=== PATIENT | male | born 1950 | race Caucasian/White ===

== ENCOUNTER 2016-06-26 00:40 | Observation (INO) | payer MEDICARE, BC ==
[2016-06-26] MEDS ORDERED: Aspirin Low Dose CHEW TAB* 81 MG PO ONE (01:17)
[2016-06-26] MEDS ORDERED: Nitroglycerin 2% OINT* 1 GM PAK TOPICAL ONE (01:17)
[2016-06-26 01:29] LABS: Hematocrit 45 % (42-52); Hemoglobin 14.8 g/dl (14.0-18.0); Mean Corpuscular HGB Conc 33 g/dl (31-36); Mean Corpuscular Hemoglobin 28 pg (27-31); Mean Corpuscular Volume 87 fL (80-94); Mean Platelet Volume 9 um3 (7.4-10.4); Red Cell Distribution Width 15 % (10.5-15); White Blood Count 9.5 10^3/ul (3.5-10.8)
[2016-06-26 01:38] LABS: Albumin 3.7 g/dL (3.2-5.2); Calcium 8.8 mg/dL (8.6-10.3); EGFR African American 54.1 (>60); EGFR Non-African American 42.1 (>60); Globulin 2.8 g/dL (2-4); Potassium 4.3 mmol/L (3.5-5.0); Total Bilirubin 0.3 mg/dL (0.2-1.0); Total Protein 6.5 g/dL (6.4-8.9)
[2016-06-26 01:40] LABS: Troponin I 0.01 ng/mL (<0.04)
--- NOTE | 2016-06-26 02:11 | HP ---
H&P (Free Text) History and Physical: PCP: Marc Mcdermott MD Date/Time of Evaluation: 06/25/2016 023 CC: chest pain HPI: Mr Chen is a 66YO male HX DM2, COPD, PAOD, & CAD/STEMI/stent x3 who presents reporting 1 week of gradually worsening non-radiating non-exertional chest pressure associated with increasing fatigue and cough producing clear to off white sputum. Tonight he developed some SOB, but denies any palpitations, N/ V/D, D/C, light-headedness, & sweats. The chest pressure improves with ambulation and changes intensity based on position. ED evaluation reveals hypotensive pressures as low as 80s/40s & bradycardia in the 50s. Labs are baseline for the patient excepting a BNP in the 300s. ECG is NSR rate 62, no ischemia. CXR is negative. PMedHx CVA CAD/STEMI/stent x3 to same lesion (continues to smoke) diastolic HF PAOD s/p L fem-pop bypass & L carotid endarterectomy COPD DM2 HTN HLD bladder CA s/p transurethral resection & BCG urolithiasis GERD BPH R sciatica tobacco use disorder Allergies Bee Venom Allergy (Severe, Verified 06/26/16 02:22) Swelling Of Face,Lips,& Throat Cat Hair Extract Allergy (Intermediate, Verified 06/26/16 02:22) Wheezing "stuffy, wheezy, eyes itching" Lisinopril Allergy (Verified 06/26/16 02:22) Swelling Of Face,Lips,& Throat Ambulatory Orders Gabapentin CAP(*) [Neurontin 300 CAP(*)] 800 mg PO BID 11/28/13 Omeprazole CAP* [Prilosec CAP* 20 MG] 20 mg PO QAM 11/28/13 Tamsulosin CAP* [Flomax CAP*] 0.4 mg PO BEDTIME 11/28/13 Albuterol/Ipratropium NEB.TAI* [Duoneb NEB.TAI*] 1 neb INH Q6H PRN 12/05/13 Nitroglycerin [Nitrostat] 0.4 mg SL SEE INSTRUCTIONS PRN 02/14/14 Sitagliptin/Metform 50/500(NF) [Janumet 50/500 (NF)] 1 tab PO BID 04/07/15 Amiodarone TAB* 200 mg PO DAILY 06/26/16 Aspirin EC Low Dose* 81 mg PO DAILY 06/26/16 Atorvastatin* 80 mg PO DAILY 06/26/16 Carvedilol TAB* 25 mg PO BID 06/26/16 Magnesium 400 mg PO BID 06/26/16 Plavix TAB* 75 mg PO DAILY 06/26/16 Potassium Chloride ER 20 meq PO DAILY 06/26/16 Torsemide TAB* mg PO DAILY 06/26/16 PSurgHx L carotid endarterectomy L fem-pop bypass R inguinal hernia repair SocHx: 1.5 - 2PPD cigarettes w/ ~50PYHX, no alcohol or recreational drug use; lives alone; full code status FamHx: reviewed, non-contributory ROS: as above, otherwise reviewed and all were negative Constitutional: NAD, normally developed, obese white male vitals: Vital Signs Temp 36.5 C 06/26/16 00:48 Pulse 51 06/26/16 03:30 Resp 13 06/26/16 03:30 BP 99/72 06/26/16 03:30 Pulse Ox 93 06/26/16 03:30 Intake & Output 06/25/16 06/25/16 06/26/16 11:59 23:59 11:59 Weight 245 lb HEENM: atraumatic; sclera/conjunctiva: non-icteric/clear; hearing: clinically intact; oropharynx: clear, mucosa moist Neck: soft tissue: non-tender; thyroid: normal Pulmonary: diffuse B rhonchi w/ mild end-expiratory wheeze, fair aeration, no accessory muscle use CV: RR/RR, normal S1S2, no carotid bruit, no jugular venous distention, 2+ B DP/ PT, 1+ BLE edema Abdominal: soft, non-distended, non-tender, no rebound/guarding/rigidity, normoactive bowel sounds, no hepatosplenomegaly or masses, no costovertebral angle tenderness Musculoskeletal: general: grossly intact; gait: stable Integumental: normal appearance and texture, numerous comedones on back Psychiatric orientation: AA&O to PPS affect: flat mood: cooperative eye contact: fair content: reliable responses: timely insight: fair to poor Testing: Lab Results 06/26/16 06/26/16 06/26/16 Range/Units 01:11 01:11 01:11 WBC 9.5 (3.5-10.8) 10^3/ul RBC 5.20 (4.0-5.4) 10^6/ul Hgb 14.8 (14.0-18.0) g/dl Hct 45 (42-52) % MCV 87 (80-94) fL MCH 28 (27-31) pg MCHC 33 (31-36) g/dl RDW 15 (10.5-15) % Plt Count 189 (150-450) 10^3/ul MPV 9 (7.4-10.4) um3 Neut % (Auto) 69.8 (38-83) % Lymph % (Auto) 15.3 L (25-47) % [place] % (Auto) 8.6 (1-9) % Eos % (Auto) 5.1 (0-6) % Baso % (Auto) 1.2 (0-2) % Absolute Neuts (auto) 6.6 (1.5-7.7) 10^3/ul Absolute Lymphs (auto) 1.5 (1.0-4.8) 10^3/ul Absolute Monos (auto) 0.8 (0-0.8) 10^3/ul Absolute Eos (auto) 0.5 (0-0.6) 10^3/ul Absolute Basos (auto) 0.1 (0-0.2) 10^3/ul Absolute Nucleated RBC 0.01 10^3/ul Nucleated RBC % 0.1 INR (Anticoag Therapy) 0.82 L (0.89-1.11) APTT 27.1 (26.0-36.3) seconds Sodium 133 (133-145) mmol/L Potassium 4.3 (3.5-5.0) mmol/L Chloride 100 L (101-111) mmol/L Carbon Dioxide 26 (22-32) mmol/L Anion Gap 7 (2-11) mmol/L BUN 28 H (6-24) mg/dL Creatinine 1.65 H (0.67-1.17) mg/dL Est GFR ( Amer) 54.1 (>60) Est GFR (Non-Af Amer) 42.1 (>60) BUN/Creatinine Ratio 17.0 (8-20) Glucose 128 H (70-100) mg/dL Lactic Acid (0.5-2.0) mmol/L Calcium 8.8 (8.6-10.3) mg/dL Total Bilirubin 0.30 (0.2-1.0) mg/dL AST 16 (13-39) U/L ALT 14 (7-52) U/L Alkaline Phosphatase 112 H (34-104) U/L Troponin I 0.01 (<0.04) ng/mL B-Natriuretic Peptide ( - 100) pg/mL Total Protein 6.5 (6.4-8.9) g/dL Albumin 3.7 (3.2-5.2) g/dL Globulin 2.8 (2-4) g/dL Albumin/Globulin Ratio 1.3 (1-3) 06/26/16 06/26/16 Range/Units 01:11 01:11 WBC (3.5-10.8) 10^3/ul RBC (4.0-5.4) 10^6/ul Hgb (14.0-18.0) g/dl Hct (42-52) % MCV (80-94) fL MCH (27-31) pg MCHC (31-36) g/dl RDW (10.5-15) % Plt Count (150-450) 10^3/ul MPV (7.4-10.4) um3 Neut % (Auto) (38-83) % Lymph % (Auto) (25-47) % [place] % (Auto) (1-9) % Eos % (Auto) (0-6) % Baso % (Auto) (0-2) % Absolute Neuts (auto) (1.5-7.7) 10^3/ul Absolute Lymphs (auto) (1.0-4.8) 10^3/ul Absolute Monos (auto) (0-0.8) 10^3/ul Absolute Eos (auto) (0-0.6) 10^3/ul Absolute Basos (auto) (0-0.2) 10^3/ul Absolute Nucleated RBC 10^3/ul Nucleated RBC % INR (Anticoag Therapy) (0.89-1.11) APTT (26.0-36.3) seconds Sodium (133-145) mmol/L Potassium (3.5-5.0) mmol/L Chloride (101-111) mmol/L Carbon Dioxide (22-32) mmol/L Anion Gap (2-11) mmol/L BUN (6-24) mg/dL Creatinine (0.67-1.17) mg/dL Est GFR ( Amer) (>60) Est GFR (Non-Af Amer) (>60) BUN/Creatinine Ratio (8-20) Glucose (70-100) mg/dL Lactic Acid 1.2 (0.5-2.0) mmol/L Calcium (8.6-10.3) mg/dL Total Bilirubin (0.2-1.0) mg/dL AST (13-39) U/L ALT (7-52) U/L Alkaline Phosphatase (34-104) U/L Troponin I (<0.04) ng/mL B-Natriuretic Peptide 316 H ( - 100) pg/mL Total Protein (6.4-8.9) g/dL Albumin (3.2-5.2) g/dL Globulin (2-4) g/dL Albumin/Globulin Ratio (1-3) ECG, personally reviewed: NSR rate 62, no ischemia CXR, personally reviewed: nop acute process ECHO 04/2015: Conclusions: There are multiple regional wall motion abnormalities. There is moderately decreased left ventricular systolic function : the posterior, inferior and lateral coffman are akinetic, other areas appear hyperdynamic. The estimated ejection fraction is 35-40%. The right ventricular systolic function is low normal. There is moderate mitral regurgitation, posterior lateral jet. There is a small pericardial effusion with no evidence of filling compromise. Compared with prior echo of 04/07/15 (patient on IABP at that time), the EF has decreased from 45-50%, the degree of MR has increased, previously mild to moderate. Pericardial fluid newly noted. Impression: 66M presenting with constellation most consistent with COPD exacerbation and acute on chronic diastolic HF, doubt ACS DIAGNOSIS & PLAN Primary COPD exacerbation : albuterol nebs : mometasone/formoterol : tiotropium : IV methylprednisolone : guiafenesin : supplemental oxygen : incentive spirometry : supportive care acute on chronic diastolic HF : furosemide diuresis : daily weights : strict I&Os : low sodium diet Secondary CVA : continue aspirin CAD/STEMI/stent x3 : continue aspirin & clopidogrel : continue amiodarone PAOD : s/p L fem-pop bypass & L carotid endarterectomy : continue aspirin : smoking cessation strongly encouraged, low motivation DM2 : insulin carb ratio diet : basal/bolus/correctional protocol : check A1c : hold sitagliptin/metformin HTN : continue carvedilol HLD : continue atrovastatin GERD : continue omeprazole sciatica : continue gabapentin BPH : continue tamsulosin Admission Rational: inpatient for management of acute on chronic diastolic HF & r/o ACS inappropriate for outpatient setting DVTp: SCDs & heparin SQ Code Status: full HCP: Nathan mcnair
--- NOTE | 2016-06-26 02:15 | ED ---
Gokul Ingram SooYoung, scribed for Miguel Montero on 06/26/16 at 0109 . HPI Chest Pain - HPI Summary HPI Summary: A 66 y/o M presents to ED with chest pressure. Pt states he's been feeling ill for past week. Associated sx: dyspnea, high blood pressure, shakiness, "foamy" cough, edema in LLE, bloated abd. Denies nausea, diaphoresis, fever. He has three stents, the most recent was placed a year ago. Took 81mg of aspirin today. He says he is scheduled to see Dr Krishnan in the AM. Pt is a smoker. Pert PMhx: COPD. He has not been using his home 2L O2. - History of Current Complaint Chief Complaint: EDChestPainROMI Time Seen by Provider: 06/26/16 01:04 Hx Obtained From: Patient Onset/Duration: Still Present Current Severity: Moderate Pain Intensity: 7 Pain Scale Used: 0-10 Numeric Character: Pressure/Squeezing Associated Signs and Symptoms: Positive: Swelling - LLE, Cough - "foamy", Other : - pos: dyspnea, high blood pressure, shakiness, bloated abd. Negative: Fever , Diaphoresis, Nausea - Additional Pertinent History Primary Care Physician: [id number] - Allergy/Home Medications Allergies/Adverse Reactions: Allergies Allergy/AdvReac Type Severity Reaction Status Date / Time Bee Venom Allergy Severe Swelling Verified 04/07/15 10:42 Of Face,Lips,& Throat Cat Hair Extract Allergy Intermediate Wheezing Verified 04/07/15 10:42 Lisinopril Allergy Swelling Verified 06/26/16 00:49 Of Face,Lips,& Throat PMH/Surg Hx/FS Hx/Imm Hx Previously Healthy: No Endocrine/Hematology History: Reports: Hx Anticoagulant Therapy Denies: Hx Diabetes, Hx Thyroid Disease, Hx Anemia, Hx Unexplained Bleeding Cardiovascular History: Reports: Hx Angina, Hx Angioplasty, Hx Coronary Artery Disease - STENT, Hx Embolism, Hx Hypercholesterolemia, Hx Hypertension - CONTROLLED WITH MEDS, Hx Peripheral Vascular Disease, Other Cardiovascular Problems/Disorders - Fem pop Denies: Hx Aneurysm, Hx Auto Implanted Cardiovert Defib, Hx Cardiac Arrest, Hx Congestive Heart Failure, Hx Myocardial Infarction, Hx Pacemaker/ICD, Hx Valvular Heart Disease Respiratory History: Reports: Hx Chronic Obstructive Pulmonary Disease (COPD), Hx Pneumonia, Other Respiratory Problems/Disorders - possible sleep apnea, "wakes up a lot" Denies: Hx Asthma GI History: Reports: Hx Diverticulosis, Hx Gastroesophageal Reflux Disease - ON DAILY MEDS, Other GI Disorders - inguinal hernia Denies: Hx Cirrhosis, Hx Crohn's Disease, Hx Gall Bladder Disease, Hx Gastrointestinal Bleed, Hx Hiatal Hernia, Hx Irritable Bowel, Hx Jaundice, Hx Obstructive Bowel, Hx Ileostomy, Hx Pyloric Stenosis, Hx Ulcer History: Reports: Hx Benign Prostatic Hyperplasia, Hx Kidney Stones - 1 SMALL , 2005, NOT MOVED, Other Problems/Disorders Denies: Hx Renal Disease Musculoskeletal History: Reports: Hx Arthritis, Hx Back Problems, Hx Scoliosis, Other Musculoskeletal History - arthritis back Sensory History: Reports: Hx Contacts or Glasses Denies: Hx Cataracts, Hx Eye Injury, Hx Eye Prosthesis, Hx Glaucoma, Hx Legally Blind, Hx Macular Degeneration, Hx Vision Problem, Hx Deafness, Hx Hearing Aid, Hx Hearing Problem, Other Sensory Impairments Opthamlomology History: Reports: Hx Contacts or Glasses Denies: Hx Cataracts, Hx Eye Injury, Hx Eye Prosthesis, Hx Glaucoma, Hx Legally Blind, Hx Macular Degeneration, Hx Vision Problem, Other Sensory Impairments Neurological History: Reports: Hx Nerve Disease Denies: Hx Dementia, Hx Developmental Delay, Hx Headaches, Hx Migraine, Hx Seizures, Hx Spinal Cord Injury, Hx Transient Ischemic Attacks (TIA) Psychiatric History: Denies: Hx Panic Disorder, Hx Substance Abuse - Cancer History Cancer Type, Location and Year: BLADDER Hx Chemotherapy: Yes - CHEMICAL Hx Radiation Therapy: No - Surgical History Surgery Procedure, Year, and Place: 2011 & 2012 BLADDER CANCER [facility] [place]. 2006 LUMBAR SURGERY [place]. 2006 RIGHT INDEX FINGER REATTACHED [facility] [place]. , 2007 CARDIAC STENT [facility]. 2012 left carotid endarterectomy [facility] [place]. 2013 septoplasty [facility] [place]. 08/2013 LT FEMERAL BYPASS [facility] Anesthesia Reactions: No Infectious Disease History: No Infectious Disease History: Denies: Hx Clostridium Difficile, Hx Hepatitis, Hx Human Immunodeficiency Virus (HIV), Hx of Known/Suspected MRSA, Hx Shingles, Hx Tuberculosis, Hx Known/ Suspected VRE, Hx Known/Suspected VRSA, History Other Infectious Disease, Traveled Outside the in Last 30 Days - Family History Known Family History: Positive: Cardiac Disease - Social History Occupation: Employed Full-time Lives: Alone Alcohol Use: Occasionally Alcohol Amount: FEW DRINKS/ WEEK Hx Substance Use: No Substance Use Type: Reports: None Hx Tobacco Use: Yes Smoking Status (MU): Former Smoker Type: Cigarettes Amount Used/How Often: 2packs per day Have You Smoked in the Last Year: Yes Review of Systems Positive: Other - pos: shakiness. Negative: Fever, Skin Diaphoresis Positive: Chest Pain, Other - pos: high blood pressure Positive: Cough - "foamy", Other - dyspnea Positive: Other - pos: abd bloating. Negative: Nausea Positive: Edema - LLE All Other Systems Reviewed And Are Negative: Yes Physical Exam Triage Information Reviewed: Yes Vital Signs On Initial Exam: Initial Vitals Temp Pulse Resp BP Pulse Ox 97.7 F 64 18 125/59 94 06/26/16 00:48 06/26/16 00:48 06/26/16 00:48 06/26/16 00:48 06/26/16 00:48 Vital Signs Reviewed: Yes Appearance: Positive: Well-Appearing, No Pain Distress Skin: Positive: Warm, Skin Color Reflects Adequate Perfusion, Dry Head/Face: Positive: Normal Head/Face Inspection Eyes: Positive: EOMI, STEPHANIE ENT: Positive: Normal ENT inspection Neck: Positive: Supple, Nontender Respiratory/Lung Sounds: Positive: Clear to Auscultation, Breath Sounds Present Cardiovascular: Positive: RRR, Pulses are Symmetrical in both Upper and Lower Extremities, Leg Edema Left - MILD PEDAL EDEMA, L LEG, 1+ Abdomen Description: Positive: Nontender, Soft Bowel Sounds: Positive: Present Musculoskeletal: Positive: Normal, Strength/ROM Intact - 4XFROM Neurological: Positive: Normal, Sensory/Motor Intact, Alert, Oriented to Person Place, Time Diagnostics - Vital Signs Vital Signs Temp Pulse Resp BP Pulse Ox 06/26/16 00:48 97.7 F 64 18 125/59 94 - Laboratory Result Diagrams: 06/26/16 01:11 06/26/16 01:11 Lab Statement: Any lab studies that have been ordered have been reviewed, and results considered in the medical decision making process. - Radiology CXR Xray Interpretation: No Acute Changes Radiology Interpretation Completed By: ED Physician - EKG 1 EKG Rhythm: Sinus Rhythm EKG Interpretation: no acute changes Chest Pain Course/Dx - Course Course Of Treatment: MDM: A 66 y/o M presents with CP, described as pressure. History of CAD, COPD. Labs, EKG, CXR done. Will admit for further management and cardiology consult in the morning. - Diagnoses Provider Diagnoses: chest pain BRYANT - Provider Notifications Discussed Care Of Patient With: Dr. Dotson, hospitalist Time Discussed With Above Provider: 01:58 Instructed by Provider To: Admit As Inpatient Discharge - Discharge Plan Condition: Stable Disposition: ADMITTED TO [facility] Referrals: Soo Mcdermott MD [Primary Care Provider] - The documentation as recorded by the Gokul howard SooYoung accurately reflects the service I personally performed and the decisions made by Kylah castellanos Emmanuel.
[2016-06-26] MEDS ORDERED: Furosemide IV* 10 MG/ML VIAL (40 MG) IV ONE (04:47)
[2016-06-26] MEDS ORDERED: Acetaminophen TAB* 325 MG PO PRN (04:47)
[2016-06-26] MEDS ORDERED: Albuterol 2.5 MG/3 ML NEB.SOL* (0.083%) INH PRN (04:47)
[2016-06-26] MEDS ORDERED: methylPREDNISolone 125 MG* 2 ML VIAL IV ONE (04:47)
[2016-06-26] MEDS ORDERED: Melatonin (NF) 3 MG TAB PO PRN (04:47)
[2016-06-26] MEDS: Nitroglycerin 2% OINT* 1 GM PAK TOPICAL SCH ×2 (05:33→11:59)
[2016-06-26] MEDS: Nicotine PATCH 21 MG/24 HR* PATCH TRANSDERM SCH (05:33)
[2016-06-26] MEDS: Albuterol 2.5 MG/3 ML NEB.SOL* (0.083%) INH SCH ×3 (07:45→19:00)
[2016-06-26] MEDS: Tiotropium CAP.INH* CAP.INH/18 MCG (USE ORDER SET !) INH SCH (07:47)
[2016-06-26] MEDS: Mometasone/Formoter 200/5 MDI INH SCH ×2 (07:47→21:23)
--- NOTE | 2016-06-26 07:56 | RAD ---
INDICATION: Chest pain COMPARISON: Similar chest x-ray dated February 28, 2016 TECHNIQUE: Single AP portable view of the chest was obtained. FINDINGS: Image quality is compromised due to the relative inferiority of a portable chest x-ray. The heart and mediastinum exhibit normal size and contour. The lungs are grossly clear. There is no evidence of a large pleural effusion. Visualized bones are normal for the patient's age. IMPRESSION: No radiographic evidence for acute cardiopulmonary abnormality on this portable chest x-ray.
[2016-06-26] MEDS ORDERED: Spiriva Inhaler DEVICE* 1 EACH DEVICE INH ONE (09:00)
[2016-06-26] MEDS ORDERED: Atorvastatin* 80 MG TAB PO SCH ×2 (09:00→17:00)
[2016-06-26] MEDS: Insulin LISPRO* 1 UNITS UNIT SUBCUT SCH ×7 (09:22→21:28)
[2016-06-26] MEDS: Furosemide IV* 10 MG/ML VIAL (40 MG) IV SCH ×2 (09:22→13:19)
[2016-06-26] MEDS: Clopidogrel TAB* 75 MG PO SCH (09:23)
[2016-06-26] MEDS: Gabapentin CAP(*) 400 MG PO SCH ×2 (09:24→21:03)
[2016-06-26] MEDS: guaiFENesin ER TAB 600 MG PO SCH ×2 (09:24→21:03)
[2016-06-26] MEDS: Amiodarone TAB* 200 MG PO SCH (09:25)
[2016-06-26] MEDS: Carvedilol TAB* 25 MG PO SCH ×2 (09:25→21:05)
[2016-06-26] MEDS: Magnesium Oxide TAB* 400 MG PO SCH ×2 (09:25→21:04)
[2016-06-26] MEDS: Aspirin TAB* 325 MG PO SCH (09:25)
[2016-06-26] MEDS: Docusate CAP* 100 MG PO SCH ×2 (10:58→21:02)
[2016-06-26] MEDS ORDERED: Nitro Patch/OINT Remove PATCH OFF SCH (11:00)
[2016-06-26] MEDS: Pantoprazole TAB (NF) 40 MG TAB PO SCH (11:16)
--- NOTE | 2016-06-26 16:34 | PN ---
Subjective Date of Service: 06/26/16 Interval History: . pt reports he feels much better today reporting he can now lay flat, his cough is almost resolved, and his LE edema has resolved and no further CP. Reports he was having "frothy white" sputum which has resolved. No fevers or chills. Feels that he may still be a little fluid overloaded. Overall feels much better stating "I can now breath". Is not interested in quitting smoking. Objective Active Medications: Acetaminophen (Tylenol Tab*) 650 mg PO Q6H PRN PRN Reason: FEVER/PAIN Albuterol (Ventolin 2.5 Mg/3 Ml Neb.Luz Elena*) 2.5 mg INH Q2H PRN PRN Reason: SOB/WHEEZING Albuterol (Ventolin 2.5 Mg/3 Ml Neb.Luz Elena*) 2.5 mg INH [id number] AWAKE [facility] Last Admin: 06/26/16 13:45 Dose: 2.5 mg Amiodarone HCl (Cordarone Tab*) 200 mg PO DAILY [facility] Last Admin: 06/26/16 09:25 Dose: 200 mg Aspirin (Aspirin Tab*) 325 mg PO DAILY [facility] Last Admin: 06/26/16 09:25 Dose: 325 mg Atorvastatin Calcium (Lipitor*) 80 mg PO 1700 [facility] Carvedilol (Coreg Tab*) 25 mg PO BID [facility] Last Admin: 06/26/16 09:25 Dose: 25 mg Clopidogrel Bisulfate (Plavix Tab*) 75 mg PO DAILY [facility] Last Admin: 06/26/16 09:23 Dose: 75 mg Docusate Sodium (Colace Cap*) 200 mg PO BID [facility] Last Admin: 06/26/16 10:58 Dose: Not Given Furosemide (Lasix Iv*) 40 mg IV 0800,1200 [facility] Last Admin: 06/26/16 13:19 Dose: 40 mg Gabapentin (Neurontin Cap(*)) 800 mg PO BID [facility] Last Admin: 06/26/16 09:24 Dose: 800 mg Guaifenesin (Mucinex*) 1,200 mg PO BID [facility] Last Admin: 06/26/16 09:24 Dose: 1,200 mg Heparin Sodium (Porcine) (Heparin Vial(*)) 5,000 units SUBCUT Q8HR [facility] Insulin Glargine (Lantus(*)) 27 units SUBCUT 2100 [facility] Stop: 06/27/16 20:00 Insulin Human Lispro (Humalog*) 0 units SUBCUT AC [facility] PRN Reason: Protocol Last Admin: 06/26/16 13:19 Dose: 7 units Insulin Human Lispro (Humalog*) 0 units SUBCUT ACHS [facility] PRN Reason: Protocol Last Admin: 06/26/16 13:19 Dose: 2 units Magnesium Oxide (Magox 400 Tab*) 400 mg PO BID [facility] Last Admin: 06/26/16 09:25 Dose: 400 mg Melatonin (Melatonin (Nf)) 3 mg PO BEDTIME PRN; Protocol PRN Reason: Sleep Methylprednisolone Sodium Succinate (Solu-Medrol*) 40 mg IV Q8H [facility] Mometasone Furoate/Formoterol Fumar (Dulera 200/5 Mdi*) 2 puff INH BID [facility] Last Admin: 06/26/16 07:47 Dose: 2 puff Nicotine (Nicotine Patch 21 Mg/24 Hr*) 1 patch TRANSDERM Q24H [facility] Last Admin: 06/26/16 05:33 Dose: 1 patch Pantoprazole Sodium (Protonix Tab (Nf)) 40 mg PO QAM [facility] Last Admin: 06/26/16 11:16 Dose: 40 mg Pharmacy Profile Note (Nicotine Patch Removal Note*) 1 note PATCH OFF 2100 [facility] Pharmacy Profile Note (Nitro Patch/Oint Remove*) 1 note PATCH OFF Q6H [facility] Last Admin: 06/26/16 11:17 Dose: Not Given Tamsulosin HCl (Flomax Cap*) 0.4 mg PO BEDTIME [facility] Tiotropium Mobile (Spiriva Cap.Inh*) 1 cap INH DAILY [facility] Last Admin: 06/26/16 07:47 Dose: 1 cap.inh Vital Signs 06/26/16 06/26/16 06/26/16 04:35 04:38 05:00 Temperature 97.8 F Pulse Rate 65 54 62 Respiratory 16 13 19 Rate Blood Pressure 108/60 108/60 118/70 (mmHg) O2 Sat by Pulse 94 94 92 Oximetry 06/26/16 06/26/16 06/26/16 05:25 05:26 07:37 Temperature 97.3 F 97.3 F 97.6 F Pulse Rate 53 53 53 Respiratory 20 20 14 Rate Blood Pressure 120/70 120/70 119/66 (mmHg) O2 Sat by Pulse 95 95 92 Oximetry 0106/26/16 06/26/16 07:50 08:00 09:24 Temperature Pulse Rate 60 Respiratory 18 22 22 Rate Blood Pressure (mmHg) O2 Sat by Pulse 94 Oximetry 06/26/16 06/26/16 06/26/16 11:24 11:37 13:46 Temperature 98.8 F Pulse Rate 60 60 Respiratory 20 18 18 Rate Blood Pressure 119/66 (mmHg) O2 Sat by Pulse 96 99 Oximetry 06/26/16 15:23 Temperature 98.0 F Pulse Rate 72 Respiratory 16 Rate Blood Pressure 128/70 (mmHg) O2 Sat by Pulse 91 Oximetry Oxygen Devices in Use Now: None Appearance: obese male sitting up in bed in NAD. A+O x3 Eyes: No Scleral Icterus, PERRLA Ears/Nose/Mouth/Throat: NL Teeth, Lips, Gums, Mucous Membranes Moist Neck: NL Appearance and Movements; NL JVP Respiratory: Symmetrical Chest Expansion and Respiratory Effort, Clear to Auscultation Cardiovascular: NL Sounds; No Murmurs; No JVD, RRR, - - LLE larger than right ( chronic)- no calf tenderness, 1+ non-pitting edema Abdominal: NL Sounds; No Tenderness; No Distention Lymphatic: No Cervical Adenopathy Extremities: No Edema, No Clubbing, Cyanosis Skin: No Rash or Ulcers, No Nodules or Sclerosis Neurological: Alert and Oriented x 3, NL Sensation, NL Gait, NL Muscle Strength and Tone Lines/Tubes/Other Access: Clean, Dry and Intact Peripheral IV Nutrition: Taking PO's Result Diagrams: 06/26/16 01:11 06/26/16 01:11 Assess/Plan/Problems-Billing Assessment: 66 yo male with PMH of DM2, COPD, CAD s/p STEMI with stents, current tobacco abuse, s/p fem-pop bypass & L carotid endarterectomy who presented to the ED 06/26/16 with c/o chest pain, sob, orthopnea, increase LE edema adnd cough, - Patient Problems (1) Chest pain Comment: - resolved. suspect secondary to coughing - troponins negative, no noted ischemia on EKG (2) Acute on chronic diastolic CHF (congestive heart failure) Status: Acute Comment: - Much improvement today, orthopnea resolved as well as SOB, and improvement in LE edema. - Hold IV lasix for now. Down 2-3 lbs since admission. check creatinine in am - Educated pt on compliance with diet as he was eating potato chips on my arrival; encourage low salt diet. - - last echo 04/2015 (after STEMI) EF 35-40%. awaiting TTE (3) COPD exacerbation Comment: - mild exacerbation. improving. on room air, no wheezing. Decreased sputum production. Do not think the pt needs abx. - continue nebs, spiriva, - d/c solumedrol start prednsione (4) Diabetes Comment: FSBG ACHS with lispro SS with lantus (5) CAD (coronary artery disease) Comment: - hx of CAD with stents and vascular surgeries - does not appear to be acute at this time - continue ASA/Plavix, BB, amiodarone (6) Tobacco abuse Comment: - nicotine replacement - smoking cessation (7) DVT prophylaxis Comment: HSQ Status and Disposition: OBV. Most likely DC home tomorrow
[2016-06-26] MEDS ORDERED: Insulin GLARGINE(*) 1 UNITS UNIT SUBCUT SCH (21:00)
[2016-06-26] MEDS ORDERED: Nicotine Patch Removal NOTE PATCH OFF SCH (21:00)
[2016-06-26] MEDS ORDERED: Tamsulosin CAP* 0.4 MG PO SCH (21:00)
[2016-06-27] MEDS: Albuterol 2.5 MG/3 ML NEB.SOL* (0.083%) INH SCH ×2 (01:00→07:47)
[2016-06-27] MEDS: Nicotine PATCH 21 MG/24 HR* PATCH TRANSDERM SCH (05:34)
[2016-06-27] MEDS ORDERED: Heparin VIAL(*) 5000 UNITS/ML VIAL (FIVE THOUSAND) SUBCUT SCH (06:00)
[2016-06-27 06:58] LABS: Hematocrit 46 % (42-52); Mean Corpuscular HGB Conc 32 g/dl (31-36); Mean Corpuscular Hemoglobin 28 pg (27-31); Mean Corpuscular Volume 88 fL (80-94); Mean Platelet Volume 9 um3 (7.4-10.4); Red Blood Count 5.31 10^6/ul (4.0-5.4); Red Cell Distribution Width 15 % (10.5-15); White Blood Count 13.8 10^3/ul (3.5-10.8)
[2016-06-27 07:08] LABS: Calcium 9.3 mg/dL (8.6-10.3); EGFR African American 63.8 (>60); EGFR Non-African American 49.6 (>60); Potassium 4.3 mmol/L (3.5-5.0)
[2016-06-27] MEDS: Tiotropium CAP.INH* CAP.INH/18 MCG (USE ORDER SET !) INH SCH (07:47)
[2016-06-27] MEDS: Mometasone/Formoter 200/5 MDI INH SCH (07:47)
[2016-06-27] MEDS ORDERED: methylPREDNISolone SOD 40 MG* 1 ML VIAL IV SCH (09:00)
[2016-06-27] MEDS ORDERED: predniSONE TAB* 20 MG PO SCH (09:00)
[2016-06-27] MEDS: guaiFENesin ER TAB 600 MG PO SCH (09:20)
[2016-06-27] MEDS: Clopidogrel TAB* 75 MG PO SCH (09:20)
[2016-06-27] MEDS: Gabapentin CAP(*) 400 MG PO SCH (09:21)
[2016-06-27] MEDS: Magnesium Oxide TAB* 400 MG PO SCH (09:21)
[2016-06-27] MEDS: Pantoprazole TAB (NF) 40 MG TAB PO SCH (09:21)
[2016-06-27] MEDS: Aspirin TAB* 325 MG PO SCH (09:21)
[2016-06-27] MEDS: Amiodarone TAB* 200 MG PO SCH (09:21)
[2016-06-27] MEDS: Carvedilol TAB* 25 MG PO SCH (09:21)
[2016-06-27] MEDS: Insulin LISPRO* 1 UNITS UNIT SUBCUT SCH ×4 (09:22→13:23)
[2016-06-27] MEDS: Docusate CAP* 100 MG PO SCH (09:29)
--- NOTE | 2016-06-27 12:00 | DCNOTE ---
Subjective Date of Service: 06/27/16 Interval History: . patient reports he is at his baseline and "feel really good". Denies SOB or CP. Reports LE edema has "pretty much resolved". Has been ambulating around the unit multiple times with steady gait. Reports good appetite. Pt was educated to avoid high salt. Objective Active Medications: Acetaminophen (Tylenol Tab*) 650 mg PO Q6H PRN PRN Reason: FEVER/PAIN Last Admin: 06/26/16 21:28 Dose: 650 mg Albuterol (Ventolin 2.5 Mg/3 Ml Neb.Luz Elena*) 2.5 mg INH Q2H PRN PRN Reason: SOB/WHEEZING Albuterol (Ventolin 2.5 Mg/3 Ml Neb.Luz Elena*) 2.5 mg INH [id number] AWAKE [facility] Last Admin: 06/27/16 07:47 Dose: 2.5 mg Amiodarone HCl (Cordarone Tab*) 200 mg PO DAILY [facility] Last Admin: 06/27/16 09:21 Dose: 200 mg Aspirin (Aspirin Tab*) 325 mg PO DAILY [facility] Last Admin: 06/27/16 09:21 Dose: 325 mg Atorvastatin Calcium (Lipitor*) 80 mg PO 1700 [facility] Last Admin: 06/26/16 17:39 Dose: 80 mg Carvedilol (Coreg Tab*) 25 mg PO BID [facility] Last Admin: 06/27/16 09:21 Dose: 25 mg Clopidogrel Bisulfate (Plavix Tab*) 75 mg PO DAILY [facility] Last Admin: 06/27/16 09:20 Dose: 75 mg Docusate Sodium (Colace Cap*) 200 mg PO BID [facility] Last Admin: 06/27/16 09:29 Dose: Not Given Gabapentin (Neurontin Cap(*)) 800 mg PO BID [facility] Last Admin: 06/27/16 09:21 Dose: 800 mg Guaifenesin (Mucinex*) 1,200 mg PO BID [facility] Last Admin: 06/27/16 09:20 Dose: 1,200 mg Heparin Sodium (Porcine) (Heparin Vial(*)) 5,000 units SUBCUT Q8HR [facility] Last Admin: 06/27/16 05:32 Dose: 5,000 units Insulin Glargine (Lantus(*)) 27 units SUBCUT 2100 [facility] Stop: 06/27/16 20:00 Last Admin: 06/26/16 21:30 Dose: 27 units Insulin Human Lispro (Humalog*) 0 units SUBCUT AC [facility] PRN Reason: Protocol Last Admin: 06/27/16 09:22 Dose: 8 units Insulin Human Lispro (Humalog*) 0 units SUBCUT ACHS [facility] PRN Reason: Protocol Last Admin: 06/27/16 09:23 Dose: 3 units Magnesium Oxide (Magox 400 Tab*) 400 mg PO BID [facility] Last Admin: 06/27/16 09:21 Dose: 400 mg Melatonin (Melatonin (Nf)) 3 mg PO BEDTIME PRN; Protocol PRN Reason: Sleep Mometasone Furoate/Formoterol Fumar (Dulera 200/5 Mdi*) 2 puff INH BID [facility] Last Admin: 06/27/16 07:47 Dose: 2 puff Nicotine (Nicotine Patch 21 Mg/24 Hr*) 1 patch TRANSDERM Q24H [facility] Last Admin: 06/27/16 05:34 Dose: 1 patch Pantoprazole Sodium (Protonix Tab (Nf)) 40 mg PO QAM [facility] Last Admin: 06/27/16 09:21 Dose: 40 mg Pharmacy Profile Note (Nicotine Patch Removal Note*) 1 note PATCH OFF 2100 [facility] Last Admin: 06/26/16 21:39 Dose: Not Given Prednisone (Deltasone Tab*) 40 mg PO DAILY [facility] Last Admin: 06/27/16 09:22 Dose: 40 mg Tamsulosin HCl (Flomax Cap*) 0.4 mg PO BEDTIME [facility] Last Admin: 06/26/16 21:04 Dose: 0.4 mg Tiotropium [place] (Spiriva Cap.Inh*) 1 cap INH DAILY [facility] Last Admin: 06/27/16 07:47 Dose: 1 cap.inh Vital Signs 06/26/16 06/26/16 06/26/16 13:46 15:23 16:31 Temperature 98.0 F Pulse Rate 60 72 Respiratory 18 16 Rate Blood Pressure 128/70 (mmHg) O2 Sat by Pulse 99 91 93 Oximetry 06/26/16 06/26/16 06/26/16 20:07 21:03 23:03 Temperature 98.8 F Pulse Rate 75 Respiratory 16 17 18 Rate Blood Pressure 117/72 (mmHg) O2 Sat by Pulse 94 Oximetry 06/27/16 06/27/16 06/27/16 00:14 03:21 06:16 Temperature 97.4 F 97.4 F Pulse Rate 55 64 64 Respiratory 20 16 16 Rate Blood Pressure 113/48 113/47 (mmHg) O2 Sat by Pulse 90 93 93 Oximetry 06/27/16 06/27/16 07:52 09:21 Temperature Pulse Rate 57 Respiratory 18 18 Rate Blood Pressure (mmHg) O2 Sat by Pulse 95 Oximetry Oxygen Devices in Use Now: None Appearance: A+O x3 chronically ill appearing male in NAD Eyes: No Scleral Icterus, PERRLA Ears/Nose/Mouth/Throat: NL Teeth, Lips, Gums, Mucous Membranes Moist Neck: NL Appearance and Movements; NL JVP, - - good aeration throughout Respiratory: Symmetrical Chest Expansion and Respiratory Effort, Clear to Auscultation Cardiovascular: NL Sounds; No Murmurs; No JVD, RRR, - - trace B/L LE edema Abdominal: NL Sounds; No Tenderness; No Distention, - - obese Extremities: No Clubbing, Cyanosis Skin: No Rash or Ulcers, No Nodules or Sclerosis Neurological: Alert and Oriented x 3, NL Sensation, NL Gait, NL Muscle Strength and Tone Lines/Tubes/Other Access: Clean, Dry and Intact Peripheral IV Nutrition: Taking PO's Result Diagrams: 06/27/16 06:29 06/27/16 06:29 Assess/Plan/Problems-Billing Assessment: 66 yo male with PMH of DM2, COPD, CAD s/p STEMI with stents, current tobacco abuse, s/p fem-pop bypass & L carotid endarterectomy who presented to the ED 06/26/16 with c/o chest pain, sob, orthopnea, increase LE edema adnd cough, - Patient Problems (1) Chest pain Comment: - resolved. suspect secondary to coughing - troponins negative, no noted ischemia on EKG (2) Acute on chronic diastolic CHF (congestive heart failure) Status: Acute Comment: - Mild exacerbation, resolved. suspect noncompliance with diet - Down 4-5 lbs since admission. Plan to restart Torsemid on DC - he has a f/u with Savana HAIRSTON next week. - Educated pt on compliance with diet and tobacco cessation - - last echo 04/2015 (after STEMI) EF 35-40%. (3) COPD exacerbation Comment: - mild exacerbation, resolved. improving. on room air, no wheezing. Decreased sputum production. Do not think the pt needs abx. - continue home inhalers (4) Diabetes Comment: FSBG ACHS with lispro SS with lantus (5) CAD (coronary artery disease) Comment: - hx of CAD with stents and vascular surgeries - does not appear to be acute at this time - continue ASA/Plavix, BB, amiodarone (6) Tobacco abuse Comment: - nicotine replacement - smoking cessation (7) DVT prophylaxis Comment: HSQ Status and Disposition: OBV. Most likely DC home today. stable
[2016-06-27 12:51] VITALS: BP 129/80
--- NOTE | 2016-06-28 06:22 | DS ---
DISCHARGE SUMMARY: DATE OF ADMISSION: 06/26/16 DATE OF DISCHARGE: 06/27/16 ATTENDING PHYSICIAN: Dr. Chavira *(report dictated by Alton Pagan, JAZZY). PRIMARY CARE PHYSICIAN: Dr. Mcdermott. CARDIOLOGISTS: Judy Delacruz MD; and YOVANNY Shearer PRIMARY DIAGNOSES: 1. Acute on chronic congestive heart failure, mild exacerbation, suspect secondary to noncompliance of diet. 2. Mild COPD exacerbation with wheezing and increased sputum production which has resolved. 3. Chest pain, unclear etiology. Negative workup for ACS. Suspect secondary to coughing. SECONDARY DIAGNOSES: 1. Type 2 diabetes. 2. Coronary artery disease, status post STEMI with stents. 3. Current tobacco abuse. 4. Peripheral vascular disease, status post fem-pop bypass with left carotid endarterectomy. 5. Chronic kidney disease. 6. Bladder cancer. HISTORY OF PRESENT ILLNESS AND HOSPITAL COURSE: Please see history and physical by Dr. Dotson for full admission details, but in summary, this is a 66-year-old male with a complex past medical history including as stated above , who presented to the emergency department with complaints of chest pain, shortness of breath, orthopnea, increased lower extremity edema, and cough with sputum production. The patient was admitted to the hospitalist service, to telemetry. He was treated for acute on chronic systolic heart failure. He was noted to have a BNP of 300, which is the highest his BNPs have been that we have recorded. He also presented with wheezing and was started on steroids and nebulizers on admission. Antibiotics were not started as this appeared to be a mild exacerbation. The patient has done well throughout his hospitalization with no further wheezing. His coughing and sputum production have resolved. His orthopnea and lower extremity swelling have resolved. The patient has lost 4 to 5 pounds, is diuresing throughout his hospitalization. This morning, the patient has been ambulating around the unit multiple times, feels at his baseline, and denies chest pain, shortness of breath, lower extremity swelling, or orthopnea. The patient is stable for discharge home. When I evaluated the patient yesterday, the patient was eating a bag of potato chips that were brought in from the outside, and I suspect most likely his exacerbation is secondary to noncompliance. As well as the patient had smoking cessation and was strongly encouraged to quit tobacco abuse. Again, in regards to his chest pain, this seemed to have resolved with secondary to coughing. He had two troponins of 0.01 and no EKG changes. It is noted that his creatinine was 1.65, which appears to be around his baseline in the last couple of years, and the patient does report that he is followed by Urology every 3 months due to his history of bladder cancer. The patient was confused about his torsemide dosage at home. I did talk to the patient's pharmacy, who stated that the last prescription that was sent in, the patient has not filled; therefore, it was decided to send the patient home on the torsemide dosage as listed below and the patient has a followup appointment with YOVANNY Vora, baler operator next week, and he was told to discuss his torsemide dosing at his Cardiology appointment. He was encouraged to weigh himself every day, and if he gains 2 to 3 pounds, he could take an extra torsemide and call his baler operator. The patient is stable for discharge home. DISCHARGE MEDICATIONS: 1. Carvedilol 25 mg p.o. b.i.d. 2. Plavix 75 mg p.o. daily. 3. Atorvastatin 80 mg p.o. daily. 4. Amiodarone 200 mg p.o. daily. 5. Aspirin AC low dose 81 mg p.o. daily. 6. Potassium chloride 20 mEq p.o. daily. 7. Magnesium 400 mg p.o. b.i.d. 8. Janumet 50/500 one tab p.o. b.i.d. 9. DuoNeb one neb INH q. 6 hours p.r.n. 10. Flomax 0.4 mg p.o. at bedtime. 11. Omeprazole 20 mg p.o. q.a.m. 12. Nitroglycerin 0.4 mg sublingual, see instructions p.r.n. 13. Gabapentin 800 mg p.o. b.i.d. 14. Prednisone 40 mg p.o. daily x3 days. 15. Torsemide 20 mg p.o. daily. DISCHARGE PLAN: 1. The patient is stable for discharge home. 2. The patient was encouraged to do daily weights. 3. Follow up with YOVANNY Shearer, next 07/02/16, at his previously scheduled appointment. The patient was encouraged to discuss his torsemide dosing. Please note, the patient did not have a followup transesophageal echocardiogram throughout his hospitalization and it was not felt that he needed to stay to have it done as his symptoms resolved quite quickly. Please consider ordering this as an outpatient if he has not had one within the year. Follow up with Dr. Mcdermott within 1 week. TIME SPENT: Approximately 60 minutes were spent on this discharge. ALTON PAGAN NP CC: Dr. Mcdermott; Judy Delacruz MD; YOVANNY Shearer* [id number]/[facility] #: [id number] MTDD
== END 2016-06-27 13:40 | disposition home or self-care (01) ==
LOC: ED 00:40 → MEDTELE 04:32
PROVIDERS: ADMIT Hospitalist; ATTEND Internal Medicine
DX: I11.0 Hypertensive heart disease with heart failure (principal); I50.33 Acute on chronic diastolic (congestive) heart failure; J44.1 Chronic obstructive pulmonary disease with (acute) exacerbation; R07.9 Chest pain, unspecified; E11.9 Type 2 diabetes mellitus without complications; I25.10 Atherosclerotic heart disease of native coronary artery without angina pectoris; Z95.5 Presence of coronary angioplasty implant and graft; I73.9 Peripheral vascular disease, unspecified; N18.9 Chronic kidney disease, unspecified; Z85.51 Personal history of malignant neoplasm of bladder; Z79.84 Long term (current) use of oral hypoglycemic drugs; I25.2 Old myocardial infarction; N40.0 Benign prostatic hyperplasia without lower urinary tract symptoms; Z86.73 Personal history of transient ischemic attack (TIA), and cerebral infarction without residual deficits; F17.210 Nicotine dependence, cigarettes, uncomplicated; Z79.82 Long term (current) use of aspirin; Z79.02 Long term (current) use of antithrombotics/antiplatelets; Z79.899 Other long term (current) drug therapy; Z88.8 Allergy status to other drugs, medicaments and biological substances; I45.10 Unspecified right bundle-branch block; R94.31 Abnormal electrocardiogram [ECG] [EKG]; R00.1 Bradycardia, unspecified
CPT/HCPCS: 36415; 71010; 80048; 80053; 83036; 83605; 83880; 84484; 85025; 85610; 85730; 93005; 94640; 94760; 96372; 96374; 96375; 96376; 99284; 99406; A9270-GY; G0378; J1644; J1940; J2930; J7512

== ENCOUNTER 2016-08-16 21:39 | Observation (INO) | payer BC, MEDICARE ==
[2016-08-16] MEDS ORDERED: Aspirin Low Dose CHEW TAB* 81 MG PO ONE (22:16)
[2016-08-16 22:31] LABS: Hematocrit 50 % (42-52); Hemoglobin 16.2 g/dl (14.0-18.0); Mean Corpuscular HGB Conc 33 g/dl (31-36); Mean Corpuscular Hemoglobin 28 pg (27-31); Mean Corpuscular Volume 87 fL (80-94); Mean Platelet Volume 10 um3 (7.4-10.4); Red Blood Count 5.75 10^6/ul (4.0-5.4); Red Cell Distribution Width 15 % (10.5-15); White Blood Count 11.3 10^3/ul (3.5-10.8)
[2016-08-16] MEDS ORDERED: Albuterol/Ipratropium NEB.SOL* Albuterol 2.5 MG/Ipratropium 0.5 MG 3 ML INH ONE (22:37)
[2016-08-16 22:40] LABS: Albumin 3.9 g/dL (3.2-5.2); BUN/Creatinine Ratio 13.3 (8-20); Calcium 9.4 mg/dL (8.6-10.3); EGFR African American 51.2 (>60); EGFR Non-African American 39.8 (>60); Globulin 3.2 g/dL (2-4); Total Bilirubin 0.4 mg/dL (0.2-1.0); Total Protein 7.1 g/dL (6.4-8.9)
[2016-08-16 22:42] LABS: Troponin I 0.03 ng/mL (<0.04)
[2016-08-16 23:03] LABS: C Reactive Protein 8.56 mg/L (< 5.00)
--- NOTE | 2016-08-16 23:14 | RAD ---
Indication: Chest pain. Single frontal view of the chest performed at 2225 hours was reviewed. Comparison is made with previous exam dated July 18, 2016. No mediastinal shift is noted. Heart is of normal size and configuration. Lung valladares appear clear. IMPRESSION: NO ACTIVE CARDIOPULMONARY DISEASE IS NOTED.
[2016-08-17] MEDS ORDERED: Aspirin Low Dose CHEW TAB* 81 MG PO ONE (00:07)
[2016-08-17] MEDS ORDERED: Nitroglycerin TAB 0.4 MG* 0.4 MG TAB SL ONE ×2 (00:07)
--- NOTE | 2016-08-17 01:14 | ED ---
Jamal Ingram Janilya, scribed for Kurt Moralez MD on 08/16/16 at 2234 . HPI Chest Pain - HPI Summary HPI Summary: A 66 y/o male came [place] [facility] presenting w/ a gradual onset of constant lower chest heaviness in the lower sternal region for the past 3 days. However, the pain has progressively worsened. Severity rated 7/10. The pain does not radiate. The character of the pain is of burning sensation and pt also describes it like "somebody is pushing on it". Activity makes the pain worse. It is better when he's lying on his stomach. Due to this heaviness in chest, pt cannot take full deep breaths. In addition to SOB, pt reports loss of appetite and nausea. Pt states he had a similar episode 2 months ago, for which he was admitted to the hospital for 2 days. PMHx CVA, CHF, NM, COPD. No PSHx of gallbladder removal. SHx heavy daily tobacco use. - History of Current Complaint Chief Complaint: EDChestPainROMI Hx Obtained From: Patient Onset/Duration: Started Days Ago, Atraumatic, Still Present Timing: Constant Initial Severity: Moderate Current Severity: Moderate Pain Intensity: 7 Pain Scale Used: 0-10 Numeric Chest Pain Location: Lower Sternal Chest Pain Radiates: No Character: Burning, Heaviness Aggravating Factor(s): Exertion Alleviating Factor(s): Position - lying on stomach Associated Signs and Symptoms: Positive: Chest Pain, Shortness of Breath, Nausea - Additional Pertinent History Primary Care Physician: [id number] - Allergy/Home Medications Allergies/Adverse Reactions: Allergies Allergy/AdvReac Type Severity Reaction Status Date / Time Bee Venom Allergy Severe Swelling Verified 08/16/16 21:45 Of Face,Lips,& Throat Cat Hair Extract Allergy Intermediate Wheezing Verified 08/16/16 21:45 Lisinopril Allergy Swelling Verified 08/16/16 21:45 Of Face,Lips,& Throat PMH/Surg Hx/FS Hx/Imm Hx Previously Healthy: No Endocrine/Hematology History: Reports: Hx Anticoagulant Therapy, Hx Diabetes Denies: Hx Thyroid Disease, Hx Anemia, Hx Unexplained Bleeding Cardiovascular History: Reports: Hx Angina, Hx Angioplasty, Hx Coronary Artery Disease - STENT, Hx Embolism, Hx Hypercholesterolemia, Hx Hypertension - CONTROLLED WITH MEDS, Hx Peripheral Vascular Disease, Other Cardiovascular Problems/Disorders - Fem pop bypass Denies: Hx Aneurysm, Hx Auto Implanted Cardiovert Defib, Hx Cardiac Arrest, Hx Congestive Heart Failure, Hx Myocardial Infarction, Hx Pacemaker/ICD, Hx Valvular Heart Disease Respiratory History: Reports: Hx Chronic Obstructive Pulmonary Disease (COPD), Hx Pneumonia, Other Respiratory Problems/Disorders - possible sleep apnea, "wakes up a lot" Denies: Hx Asthma GI History: Reports: Hx Diverticulosis, Hx Gastroesophageal Reflux Disease - ON DAILY MEDS, Other GI Disorders - inguinal hernia Denies: Hx Cirrhosis, Hx Crohn's Disease, Hx Gall Bladder Disease, Hx Gastrointestinal Bleed, Hx Hiatal Hernia, Hx Irritable Bowel, Hx Jaundice, Hx Obstructive Bowel, Hx Ileostomy, Hx Pyloric Stenosis, Hx Ulcer History: Reports: Hx Benign Prostatic Hyperplasia, Hx Kidney Stones - 1 SMALL , 2005, NOT MOVED, Other Problems/Disorders Denies: Hx Renal Disease Musculoskeletal History: Reports: Hx Arthritis, Hx Back Problems, Hx Scoliosis, Other Musculoskeletal History - arthritis back Sensory History: Reports: Hx Contacts or Glasses Denies: Hx Cataracts, Hx Eye Injury, Hx Eye Prosthesis, Hx Glaucoma, Hx Legally Blind, Hx Macular Degeneration, Hx Vision Problem, Hx Deafness, Hx Hearing Aid, Hx Hearing Problem, Other Sensory Impairments Opthamlomology History: Reports: Hx Contacts or Glasses Denies: Hx Cataracts, Hx Eye Injury, Hx Eye Prosthesis, Hx Glaucoma, Hx Legally Blind, Hx Macular Degeneration, Hx Vision Problem, Other Sensory Impairments Neurological History: Reports: Hx Nerve Disease Denies: Hx Dementia, Hx Developmental Delay, Hx Headaches, Hx Migraine, Hx Seizures, Hx Spinal Cord Injury, Hx Transient Ischemic Attacks (TIA) Psychiatric History: Denies: Hx Panic Disorder, Hx Substance Abuse - Cancer History Cancer Type, Location and Year: BLADDER Hx Chemotherapy: Yes - CHEMICAL Hx Radiation Therapy: No - Surgical History Surgery Procedure, Year, and Place: 2011 & 2012 [place] [facility]. 2006 RIGHT INDEX FINGER REATTACHED [facility] [place] 2007 C[facility]IAC ST[place] [facility] 2012 left carotid [place]arte[place] [facility] 2013 septoplasty [facility] 08/2013 LT FEMERAL BYPASS [facility] Anesthesia Reactions: No Infectious Disease History: No Infectious Disease History: Denies: Hx Clostridium Difficile, Hx Hepatitis, Hx Human Immunodeficiency Virus (HIV), Hx of Known/Suspected MRSA, Hx Shingles, Hx Tuberculosis, Hx Known/ Suspected VRE, Hx Known/Suspected VRSA, History Other Infectious Disease, Traveled Outside the [place] in Last 30 Days - Family History Known Family History: Positive: Cardiac Disease - Social History Alcohol Use: Occasionally Alcohol Amount: FEW DRINKS/ WEEK Hx Substance Use: No Substance Use Type: Reports: None Hx Tobacco Use: Yes Smoking Status (MU): Heavy Every Day Tobacco Smoker Type: Cigarettes Amount Used/How Often: 2packs per day Have You Smoked in the Last Year: Yes Review of Systems Positive: Other - loss of appetite Positive: Chest Pain Positive: Shortness Of Breath Positive: Nausea All Other Systems Reviewed And Are Negative: Yes Physical Exam Triage Information Reviewed: Yes Vital Signs On Initial Exam: Initial Vitals Temp Pulse Resp BP Pulse Ox 96.6 F 90 18 126/57 96 08/16/16 21:40 08/16/16 21:40 08/16/16 21:40 08/16/16 21:40 08/16/16 21:40 Vital Signs Reviewed: Yes Appearance: Positive: Well-Appearing, No Pain Distress Skin: Positive: Warm, Skin Color Reflects Adequate Perfusion, Dry Head/Face: Positive: Normal Head/Face Inspection Eyes: Positive: EOMI, STEPHANIE ENT: Positive: Normal ENT inspection Neck: Positive: Supple, Nontender Respiratory/Lung Sounds: Positive: Clear to Auscultation, Breath Sounds Present , Rhonchi - bilaterally Cardiovascular: Positive: RRR Abdomen Description: Positive: Nontender, Soft Bowel Sounds: Positive: Present Musculoskeletal: Positive: Strength/ROM Intact, Edema Left - lower legs, Edema Right - lower legs Neurological: Positive: Normal, Sensory/Motor Intact, Alert, Oriented to Person Place, Time Psychiatric: Positive: Affect/Mood Appropriate Diagnostics - Vital Signs Vital Signs Temp Pulse Resp BP Pulse Ox 08/16/16 21:40 96.6 F 90 18 126/57 96 - Laboratory Lab Results: Lab Results 08/16/16 08/16/16 08/16/16 Range/Units 22:07 22:07 22:07 WBC 11.3 H (3.5-10.8) 10^3/ul RBC 5.75 H (4.0-5.4) 10^6/ul Hgb 16.2 (14.0-18.0) g/dl Hct 50 (42-52) % MCV 87 (80-94) fL MCH 28 (27-31) pg MCHC 33 (31-36) g/dl RDW 15 (10.5-15) % Plt Count 242 (150-450) 10^3/ul MPV 10 (7.4-10.4) um3 Neut % (Auto) 71.1 (38-83) % Lymph % (Auto) 15.6 L (25-47) % Lares % (Auto) 6.8 (1-9) % Eos % (Auto) 5.5 (0-6) % Baso % (Auto) 1.0 (0-2) % Absolute Neuts (auto) 8.0 H (1.5-7.7) 10^3/ul Absolute Lymphs (auto) 1.8 (1.0-4.8) 10^3/ul Absolute Monos (auto) 0.8 (0-0.8) 10^3/ul Absolute Eos (auto) 0.6 (0-0.6) 10^3/ul Absolute Basos (auto) 0.1 (0-0.2) 10^3/ul Absolute Nucleated RBC 0 10^3/ul Nucleated RBC % 0 INR (Anticoag Therapy) (0.89-1.11) D-Dimer, Quantitative (Less Than 230) ng/mL Sodium 135 (133-145) mmol/L Potassium 4.0 (3.5-5.0) mmol/L Chloride 96 L (101-111) mmol/L Carbon Dioxide 29 (22-32) mmol/L Anion Gap 10 (2-11) mmol/L BUN 23 (6-24) mg/dL Creatinine 1.73 H (0.67-1.17) mg/dL Est GFR ( Amer) 51.2 (>60) Est GFR (Non-Af Amer) 39.8 (>60) BUN/Creatinine Ratio 13.3 (8-20) Glucose 169 H (70-100) mg/dL Lactic Acid 2.2 H* (0.5-2.0) mmol/L Calcium 9.4 (8.6-10.3) mg/dL Total Bilirubin 0.40 (0.2-1.0) mg/dL AST 15 (13-39) U/L ALT 16 (7-52) U/L Alkaline Phosphatase 126 H (34-104) U/L Troponin I 0.03 (<0.04) ng/mL C-Reactive Protein 8.56 H (< 5.00) mg/L B-Natriuretic Peptide ( - 100) pg/mL Total Protein 7.1 (6.4-8.9) g/dL Albumin 3.9 (3.2-5.2) g/dL Globulin 3.2 (2-4) g/dL Albumin/Globulin Ratio 1.2 (1-3) Lipase 43 (11.0-82.0) U/L 08/16/16 08/16/16 Range/Units 22:07 22:07 WBC (3.5-10.8) 10^3/ul RBC (4.0-5.4) 10^6/ul Hgb (14.0-18.0) g/dl Hct (42-52) % MCV (80-94) fL MCH (27-31) pg MCHC (31-36) g/dl RDW (10.5-15) % Plt Count (150-450) 10^3/ul MPV (7.4-10.4) um3 Neut % (Auto) (38-83) % Lymph % (Auto) (25-47) % Lares % (Auto) (1-9) % Eos % (Auto) (0-6) % Baso % (Auto) (0-2) % Absolute Neuts (auto) (1.5-7.7) 10^3/ul Absolute Lymphs (auto) (1.0-4.8) 10^3/ul Absolute Monos (auto) (0-0.8) 10^3/ul Absolute Eos (auto) (0-0.6) 10^3/ul Absolute Basos (auto) (0-0.2) 10^3/ul Absolute Nucleated RBC 10^3/ul Nucleated RBC % INR (Anticoag Therapy) 0.84 L (0.89-1.11) D-Dimer, Quantitative 370 H (Less Than 230) ng/mL Sodium (133-145) mmol/L Potassium (3.5-5.0) mmol/L Chloride (101-111) mmol/L Carbon Dioxide (22-32) mmol/L Anion Gap (2-11) mmol/L BUN (6-24) mg/dL Creatinine (0.67-1.17) mg/dL Est GFR ( Amer) (>60) Est GFR (Non-Af Amer) (>60) BUN/Creatinine Ratio (8-20) Glucose (70-100) mg/dL Lactic Acid (0.5-2.0) mmol/L Calcium (8.6-10.3) mg/dL Total Bilirubin (0.2-1.0) mg/dL AST (13-39) U/L ALT (7-52) U/L Alkaline Phosphatase (34-104) U/L Troponin I (<0.04) ng/mL C-Reactive Protein (< 5.00) mg/L B-Natriuretic Peptide 200 H ( - 100) pg/mL Total Protein (6.4-8.9) g/dL Albumin (3.2-5.2) g/dL Globulin (2-4) g/dL Albumin/Globulin Ratio (1-3) Lipase (11.0-82.0) U/L Result Diagrams: 08/16/16 22:07 08/16/16 22:07 Lab Statement: Any lab studies that have been ordered have been reviewed, and results considered in the medical decision making process. - Radiology CXR Xray Interpretation: No Acute Changes - No active cardiopulmonary disease is noted. Radiology Interpretation Completed By: Radiologist - EKG 2151 Cardiac Rate: NL - 86 bpm EKG Rhythm: Sinus Rhythm EKG Interpretation: Left atrial enlargement, RBBB, depressed ST in V3, V4, V5 Chest Pain Course/Dx - Course Assessment/Plan: Pt is a 66 y/o male with signficant PMHx COPD, CHF, NM, and more (see PHx). In addition, pt is a heavy daily smoker. Pt c/o "chest heaviness " for the past couple days, which has been getting worse. There is also nausea and SOB. However, pt states it does not feel like NM. EKG shows left atrial enlargement, RBBB, depressed ST in V3, V4, V5. Lactic acid is of critical level at 2.2 H. CXR is normal. ADMIT HOSPITALIST STABLE. - Diagnoses Provider Diagnoses: Chest pain - Provider Notifications Discussed Care Of Patient With: Dr. Castillo (hospitalist) at 0043: agrees to admit pt. Discharge - Discharge Plan Condition: Stable Disposition: ADMITTED TO [facility] Referrals: Soo Mcdermott MD [Primary Care Provider] - The documentation as recorded by the Jamal howard Janilya accurately reflects the service I personally performed and the decisions made by me, Kurt Moralez MD.
[2016-08-17] MEDS ORDERED: Albuterol/Ipratropium NEB.SOL* Albuterol 2.5 MG/Ipratropium 0.5 MG 3 ML INH PRN (02:00)
[2016-08-17] MEDS ORDERED: Nitroglycerin TAB 0.4 MG* 0.4 MG TAB SL PRN (02:00)
[2016-08-17] MEDS ORDERED: Albuterol/Ipratropium NEB.SOL* Albuterol 2.5 MG/Ipratropium 0.5 MG 3 ML ONE (02:01)
[2016-08-17] MEDS: Albuterol/Ipratropium NEB.SOL* Albuterol 2.5 MG/Ipratropium 0.5 MG 3 ML INH PRN ×4 (02:05→20:50)
[2016-08-17] MEDS ORDERED: Heparin VIAL(*) 5000 UNITS/ML VIAL (FIVE THOUSAND) IV SCH (03:00)
[2016-08-17 03:55] LABS: Hematocrit 49 % (42-52); Hemoglobin 16.1 g/dl (14.0-18.0); Mean Corpuscular HGB Conc 33 g/dl (31-36); Mean Corpuscular Hemoglobin 28 pg (27-31); Mean Corpuscular Volume 86 fL (80-94); Mean Platelet Volume 9 um3 (7.4-10.4); Red Cell Distribution Width 15 % (10.5-15)
[2016-08-17 04:07] LABS: Troponin I 0.02 ng/mL (<0.04)
[2016-08-17] MEDS: Magnesium Oxide TAB* 400 MG PO SCH ×2 (08:58→20:27)
[2016-08-17] MEDS: Gabapentin CAP(*) 400 MG PO SCH ×2 (08:59→20:27)
[2016-08-17] MEDS: Torsemide TAB* 20 MG PO SCH (08:59)
[2016-08-17] MEDS: Atorvastatin* 80 MG TAB PO SCH (08:59)
[2016-08-17] MEDS: Amiodarone TAB* 200 MG PO SCH (08:59)
[2016-08-17] MEDS: Carvedilol TAB* 25 MG PO SCH ×2 (08:59→20:27)
[2016-08-17] MEDS: Pantoprazole TAB (NF) 40 MG TAB PO SCH (08:59)
[2016-08-17] MEDS: Clopidogrel TAB* 75 MG PO SCH (08:59)
[2016-08-17] MEDS: Potassium Chlor TAB* 20 MEQ TAB.ER PO SCH (08:59)
[2016-08-17] MEDS: Aspirin EC Low Dose* 81 MG TAB.EC PO SCH (08:59)
[2016-08-17] MEDS: Furosemide IV* 10 MG/ML 10 ML VIAL (100 MG) IV SCH ×2 (09:00→18:10)
--- NOTE | 2016-08-17 10:03 | HP ---
HISTORY AND PHYSICAL: DATE OF ADMISSION: 08/17/16 CHIEF COMPLAINT: Shortness of breath. HISTORY OF PRESENT ILLNESS: The patient is a 66-year-old gentleman who presented to [facility] saying he has had worsening shortness of breath for several days now. He says he has feeling of a fluid in his belly and his lungs, he feels. It started approximately last Thursday. He was told to double up on his torsemide by Savana [facility] of [facility] but it had little effect. He denied an increased salt in his diet. Denies any weight gain either. He has no wheezing. In fact he just received the DuoNeb treatment and says it was of little benefit. He was using his nebulizer at home too hoping it would help but it did not. He feels as a burning, pressure in his chest. He notes he just had echocardiogram done at his yeast maker, Dr. Delacruz's office on June 11. PAST MEDICAL HISTORY: Significant for: 1. CVA. 2. Coronary artery disease. 3. N-STEMI with stent x3 the same lesion. 4. Diastolic heart failure. 5. Peripheral vascular disease, status post fem-pop bypass 4 years ago. 6. Carotid endarterectomy. 7. COPD. 8. Type 2 diabetes. 9. Hypertension. 10. Hyperlipidemia. 11. Bladder cancer, status post transurethral resection and BCG. 12. Urolithiasis. 13. GERD. 14. BPH. 15. Sciatica. 16. Tobacco use disorder. PAST SURGICAL HISTORY: Significant for: 1. Left carotid endarterectomy. 2. Fem-pop bypass. 3. Right inguinal hernia repair. CURRENT MEDICATIONS: 1. Omeprazole 20 mg in the morning. 2. Nitroglycerin 0.4 mg sublingual p.r.n. for chest pain. 3. Magnesium 400 mg twice daily. 4. Gabapentin 800 mg twice daily. 5. Carvedilol 25 mg twice daily. 6. Atorvastatin 80 mg daily. 7. Aspirin 81 mg daily. 8. Amiodarone 200 mg daily. 9. DuoNeb 1 nebulizer q.6 hours as needed. 10. Janumet 50/500 1 tablet twice daily. 11. Potassium chloride 20 mEq daily. 12. Plavix 75 mg daily. 13. Torsemide 20 mg daily. 14. Flomax 0.4 mg at bedtime. ALLERGIES: He has an allergy/adverse reaction to BEE VENOM, CAT HAIR, LISINOPRIL. FAMILY HISTORY: Reviewed and noncontributory. SOCIAL HISTORY: Smokes 1.5 to 2 packs per day of no tobacco. No alcohol or recreational drug use. He lives alone. He does not know who is his healthcare proxy would be. REVIEW OF SYSTEMS: A 14-point review of systems is completed with the patient. All pertinent positives and negatives are in the History of Present Illness, otherwise it is negative. PHYSICAL EXAMINATION GENERAL: A pleasant gentleman sitting up in bed, in no acute distress. VITAL SIGNS: Temperature 98.1 degrees, heart rate 76 beats per minute, respiratory rate 18 breaths per minute, pulse ox 96%, blood pressure 134/78. HEENT: Normocephalic and atraumatic. Pupils are equal, round and reactive to light. Moist mucous membranes. NECK: Supple. No JVD, bruits, palpable thyroid or lymphadenopathy. CHEST: Diminished breath sounds bilaterally. CARDIOVASCULAR: S1, S2 appreciated. Regular rate and rhythm. ABDOMEN: Positive bowel sounds in all 4 quadrants. Soft, nontender, and nondistended. EXTREMITIES: No cyanosis, clubbing, or edema. +2 peripheral pulses bilaterally. NEUROLOGIC: Alert and oriented x3. Moves all extremities. SKIN: No rashes or abnormalities. LABORATORY DATA: White count 12.0, hemoglobin 16.1, hematocrit 49, platelets 234. Sodium is 135, potassium 4.0, chloride 96, CO2 29, BUN 23, creatinine 1.73 , glucose 169, lactic acid is 2.2, BNP is 200. INR is 0.84. D-dimer is 270. Chest x-ray was interpreted by Radiology as no active cardiopulmonary disease as noted. EKG shows normal sinus rhythm at 86 beats per minute, normal axis. No acute ST- T wave changes. ASSESSMENT AND PLAN: 1. Shortness of breath. I do not think the patient is having an [place]. His troponin is 0.03, but otherwise appears symptoms do not really correlated to that. It could be CHF and again it is again actually looks clear, his BNP is not that high. It also did not respond to doubling the torsemide at home. However, I will give him 60 mg IV q.12 hours of Lasix and continue the torsemide as instructed. We will monitor strict I's and O's and daily weights. May need to get Cardiology involved. He has an elevated D-dimer and although I do not think he has had a PE, we will get a V/Q scan any way in light of his renal function. His COPD may be acting up a little bit, but he is not actively wheezing, we will continue DuoNeb and prednisone taper. 2. Diabetes mellitus. Hold oral hypoglycemics and place him on insulin sliding scale. 3. BPH. Stable. Continue Flomax. 4. FEN. Consistent carb diet. 5. DVT prophylaxis. Heparin subcu. 6. The patient is a full code. TIME SPENT: Over 75 minutes was spent on this H and P; more than 40 minutes which was spent direct [id number] contact with the patient in evaluation, physical exam, counseling, and coordination of care. CC: Dr. Mcdermott* [id number]/CPS #: [id number]
[2016-08-17] MEDS: Acetaminophen TAB* 325 MG PO PRN ×2 (10:56→15:03)
--- NOTE | 2016-08-17 12:48 | PN ---
Subjective Date of Service: 08/17/16 Interval History: Patient seen and examined at bedside. He reports still having a "full feeling in his abdomen" that radiates up into his sternum and causes a burning sensation. He does feel SOB at times. He also reports a history of chronic LLE swelling from "a valve that doesn't close right." He states, "It doesn't feel like I'm having a heart attack." He denies nausea/vomiting, fever/chills. Mr. Chen does report that he has a large hernia in his abdomen but denies pain at site of hernia. He recently saw YOVANNY Vora, for his edema and was told to double up on his torsemide with little to no effect. Telemetry: SR 70s Family History: Unchanged from Admission Social History: Unchanged from Admission Past Medical History: Unchanged from Admission Objective Active Medications: Acetaminophen (Tylenol Tab*) 650 mg PO Q4H PRN PRN Reason: FEVER/PAIN Last Admin: 08/17/16 10:56 Dose: 650 mg Albuterol/Ipratropium (Duoneb (Albuterol 2.5 Mg/Ipratropium 0.5 Mg)) 1 neb INH Q2H PRN PRN Reason: SOB/WHEEZING Last Admin: 08/17/16 09:17 Dose: 1 neb Amiodarone HCl (Cordarone Tab*) 200 mg PO DAILY [facility] Last Admin: 08/17/16 08:59 Dose: 200 mg Aspirin (Aspirin Ec Low Dose*) 81 mg PO DAILY [facility] Last Admin: 08/17/16 08:59 Dose: 81 mg Atorvastatin Calcium (Lipitor*) 80 mg PO DAILY [facility] Last Admin: 08/17/16 08:59 Dose: 80 mg Carvedilol (Coreg Tab*) 25 mg PO BID [facility] Last Admin: 08/17/16 08:59 Dose: 25 mg Clopidogrel Bisulfate (Plavix Tab*) 75 mg PO DAILY [facility] Last Admin: 08/17/16 08:59 Dose: 75 mg Furosemide (Lasix Iv*) 60 mg IV 0800,1700 [facility] Last Admin: 08/17/16 09:00 Dose: 60 mg Gabapentin (Neurontin Cap(*)) 800 mg PO BID [facility] Last Admin: 08/17/16 08:59 Dose: 800 mg Heparin Sodium (Porcine) (Heparin Vial(*)) 0 units IV .PER PROTOCOL ALEXX PRN Reason: Protocol Heparin Sodium/Dextrose (Heparin Drip 25,000 Units(*)) 25,000 units in 500 mls @ 0 mls/hr IV .NO INITIAL BOLUS ALEXX; As Directed PRN Reason: Protocol Magnesium Oxide (Magox 400 Tab*) 400 mg PO BID [facility] Last Admin: 08/17/16 08:58 Dose: 400 mg Nitroglycerin (Nitroglycerin Tab 0.4 Mg*) 0.4 mg SL Q5M PRN PRN Reason: PAIN - CHEST Pantoprazole Sodium (Protonix Tab (Nf)) 40 mg PO QAM [facility] Last Admin: 08/17/16 08:59 Dose: 40 mg Potassium Chloride (Klor Con Er Tab*) 20 meq PO DAILY [facility] Last Admin: 08/17/16 08:59 Dose: 20 meq Spironolactone (Aldactone Tab*) 25 mg PO DAILY [facility] Tamsulosin HCl (Flomax Cap*) 0.4 mg PO BEDTIME [facility] Torsemide (Demadex*) 20 mg PO DAILY [facility] Last Admin: 08/17/16 08:59 Dose: 20 mg Tramadol HCl (Ultram*) 50 mg PO Q6H PRN PRN Reason: PAIN - BREAKTHROUGH Vital Signs 08/17/16 08/17/16 08/17/16 02:11 02:30 03:12 Temperature 98.1 F Pulse Rate 75 73 78 Respiratory 22 18 Rate Blood Pressure 119/78 134/78 (mmHg) O2 Sat by Pulse 96 92 95 Oximetry 08/17/16 08/17/16 08/17/16 03:19 07:17 08:00 Temperature 98.1 F 97.3 F Pulse Rate 76 68 77 Respiratory 18 16 20 Rate Blood Pressure 134/78 126/71 (mmHg) O2 Sat by Pulse 96 90 96 Oximetry 08/17/16 08/17/16 08/17/16 08:59 10:57 11:05 Temperature 97.7 F Pulse Rate 71 Respiratory 20 16 20 Rate Blood Pressure 103/73 (mmHg) O2 Sat by Pulse 95 Oximetry Appearance: Male patient, lying in bed, in NAD Eyes: PERRLA Ears/Nose/Mouth/Throat: Clear Oropharnyx, Mucous Membranes Moist Neck: NL Appearance and Movements; NL JVP Respiratory: Symmetrical Chest Expansion and Respiratory Effort, - - diminished Cardiovascular: NL Sounds; No Murmurs; No JVD, RRR Abdominal: - - protuberant, with large hernia to mid abdomen that is reproducible, BS x 4, no tenderness Extremities: - - LLE edema Skin: No Rash or Ulcers Neurological: Alert and Oriented x 3 Lines/Tubes/Other Access: Clean, Dry and Intact Peripheral IV Nutrition: Taking PO's Result Diagrams: 08/17/16 03:38 08/17/16 03:38 Additional Lab and Data: Lab Results 08/16/16 08/16/16 08/16/16 Range/Units 22:07 22:07 22:07 WBC 11.3 H (3.5-10.8) 10^3/ul RBC 5.75 H (4.0-5.4) 10^6/ul Hgb 16.2 (14.0-18.0) g/dl Hct 50 (42-52) % MCV 87 (80-94) fL MCH 28 (27-31) pg MCHC 33 (31-36) g/dl RDW 15 (10.5-15) % Plt Count 242 (150-450) 10^3/ul MPV 10 (7.4-10.4) um3 Neut % (Auto) 71.1 (38-83) % Lymph % (Auto) 15.6 L (25-47) % [place] % (Auto) 6.8 (1-9) % Eos % (Auto) 5.5 (0-6) % Baso % (Auto) 1.0 (0-2) % Absolute Neuts (auto) 8.0 H (1.5-7.7) 10^3/ul Absolute Lymphs (auto) 1.8 (1.0-4.8) 10^3/ul Absolute Monos (auto) 0.8 (0-0.8) 10^3/ul Absolute Eos (auto) 0.6 (0-0.6) 10^3/ul Absolute Basos (auto) 0.1 (0-0.2) 10^3/ul Absolute Nucleated RBC 0 10^3/ul Nucleated RBC % 0 INR (Anticoag Therapy) (0.89-1.11) D-Dimer, Quantitative (Less Than 230) ng/mL Sodium 135 (133-145) mmol/L Potassium 4.0 (3.5-5.0) mmol/L Chloride 96 L (101-111) mmol/L Carbon Dioxide 29 (22-32) mmol/L Anion Gap 10 (2-11) mmol/L BUN 23 (6-24) mg/dL Creatinine 1.73 H (0.67-1.17) mg/dL Est GFR ( Amer) 51.2 (>60) Est GFR (Non-Af Amer) 39.8 (>60) BUN/Creatinine Ratio 13.3 (8-20) Glucose 169 H (70-100) mg/dL Lactic Acid 2.2 H* (0.5-2.0) mmol/L Calcium 9.4 (8.6-10.3) mg/dL Total Bilirubin 0.40 (0.2-1.0) mg/dL AST 15 (13-39) U/L ALT 16 (7-52) U/L Alkaline Phosphatase 126 H (34-104) U/L Troponin I 0.03 (<0.04) ng/mL C-Reactive Protein 8.56 H (< 5.00) mg/L B-Natriuretic Peptide ( - 100) pg/mL Total Protein 7.1 (6.4-8.9) g/dL Albumin 3.9 (3.2-5.2) g/dL Globulin 3.2 (2-4) g/dL Albumin/Globulin Ratio 1.2 (1-3) Lipase 43 (11.0-82.0) U/L 08/16/16 08/16/16 Range/Units 22:07 22:07 WBC (3.5-10.8) 10^3/ul RBC (4.0-5.4) 10^6/ul Hgb (14.0-18.0) g/dl Hct (42-52) % MCV (80-94) fL MCH (27-31) pg MCHC (31-36) g/dl RDW (10.5-15) % Plt Count (150-450) 10^3/ul MPV (7.4-10.4) um3 Neut % (Auto) (38-83) % Lymph % (Auto) (25-47) % [place] % (Auto) (1-9) % Eos % (Auto) (0-6) % Baso % (Auto) (0-2) % Absolute Neuts (auto) (1.5-7.7) 10^3/ul Absolute Lymphs (auto) (1.0-4.8) 10^3/ul Absolute Monos (auto) (0-0.8) 10^3/ul Absolute Eos (auto) (0-0.6) 10^3/ul Absolute Basos (auto) (0-0.2) 10^3/ul Absolute Nucleated RBC 10^3/ul Nucleated RBC % INR (Anticoag Therapy) 0.84 L (0.89-1.11) D-Dimer, Quantitative 370 H (Less Than 230) ng/mL Sodium (133-145) mmol/L Potassium (3.5-5.0) mmol/L Chloride (101-111) mmol/L Carbon Dioxide (22-32) mmol/L Anion Gap (2-11) mmol/L BUN (6-24) mg/dL Creatinine (0.67-1.17) mg/dL Est GFR ( Amer) (>60) Est GFR (Non-Af Amer) (>60) BUN/Creatinine Ratio (8-20) Glucose (70-100) mg/dL Lactic Acid (0.5-2.0) mmol/L Calcium (8.6-10.3) mg/dL Total Bilirubin (0.2-1.0) mg/dL AST (13-39) U/L ALT (7-52) U/L Alkaline Phosphatase (34-104) U/L Troponin I (<0.04) ng/mL C-Reactive Protein (< 5.00) mg/L B-Natriuretic Peptide 200 H ( - 100) pg/mL Total Protein (6.4-8.9) g/dL Albumin (3.2-5.2) g/dL Globulin (2-4) g/dL Albumin/Globulin Ratio (1-3) Lipase (11.0-82.0) U/L Assess/Plan/Problems-Billing Assessment: Mr. Chen is a 66 yo patient with a PMH of CVA, CAD w/NSTEMI, diastolic HF, PVD , COPD, DM, HTN, HLD, GERD, BPH, and bladder cancer who presented to the ED with SOB and chest discomfort. - Patient Problems (1) Chest pain Code(s): R07.9 - CHEST PAIN, UNSPECIFIED Comment: Atypical description with c/o burning and radiating pain. Troponins negative, no noted ischemia on EKG Patient still c/o substernal chest pain; given risk factors, will check stress test Echocardiogram ordered and pending. VQ scan unavailable on weekend, obtain tomorrow. (2) Acute on chronic diastolic CHF (congestive heart failure) Code(s): I50.33 - ACUTE ON CHRONIC DIASTOLIC (CONGESTIVE) HEART FAILURE Comment: May be in mild exacerbation, but no increased oxygen needs. Patient does report abdominal fullness and LE edema. Continue IV furosemide and spironolactone. Continue to monitor daily weights and I/O. (3) CAD (coronary artery disease) Status: Chronic Code(s): I25.10 - ATHSCL HEART DISEASE OF [place] CORONARY ARTERY W/O ANG PCTRS Comment: Hx of CAD with stents and vascular surgeries - does not appear to be acute at this time Continue ASA/clopidogrel, BB, amiodarone (4) COPD (chronic obstructive pulmonary disease) Code(s): J44.9 - CHRONIC OBSTRUCTIVE PULMONARY DISEASE, UNSPECIFIED Comment: Appears stable. Continue prn nebulizers. (5) Diabetes Code(s): E11.9 - TYPE 2 DIABETES MELLITUS WITHOUT COMPLICATIONS Comment: FSBG ACHS with Lispro SS (6) GERD (gastroesophageal reflux disease) Code(s): K21.9 - GASTRO-ESOPHAGEAL REFLUX DISEASE WITHOUT ESOPHAGITIS Comment : Continue pantoprazole. (7) BPH (benign prostatic hyperplasia) Code(s): N40.0 - BENIGN PROSTATIC HYPERPLASIA WITHOUT LOWER URINRY TRACT SYMP Comment: Continue tamsulosin. (8) Tobacco abuse Code(s): Z72.0 - TOBACCO USE Comment: Nicotine replacement Smoking cessation education. (9) DVT prophylaxis Status: Acute Code(s): MZR4409 - Comment: Heparin gtt Status and Disposition: OBV admit. D/c to home when medically stable.
[2016-08-17] MEDS: traMADol TAB* 50 MG PO PRN ×2 (13:04→20:00)
[2016-08-17] MEDS: Spironolactone TAB* 25 MG PO SCH (13:04)
[2016-08-17] MEDS: Nicotine PATCH 21 MG/24 HR* PATCH TRANSDERM SCH (14:57)
[2016-08-17] MEDS ORDERED: Dextrose 50% Syringe 50 ML* 25 GM/50 ML SYRINGE IV PUSH PRN (17:07)
[2016-08-17] MEDS: Insulin LISPRO* 1 UNITS UNIT SUBCUT SCH (18:11)
[2016-08-17] MEDS: Heparin DRIP 25,000 UNITS(*) 25,000 UNITS/500 ML BAG IV SCH (20:27)
[2016-08-17] MEDS: Tamsulosin CAP* 0.4 MG PO SCH (20:27)
[2016-08-18] MEDS: Melatonin (NF) 3 MG TAB PO PRN ×2 (00:16→21:21)
[2016-08-18] MEDS: traMADol TAB* 50 MG PO PRN ×2 (05:04→21:19)
[2016-08-18] MEDS: Albuterol/Ipratropium NEB.SOL* Albuterol 2.5 MG/Ipratropium 0.5 MG 3 ML INH PRN ×2 (05:19→12:00)
[2016-08-18 05:49] LABS: Hematocrit 46 % (42-52); Hemoglobin 15.1 g/dl (14.0-18.0); Mean Corpuscular HGB Conc 33 g/dl (31-36); Mean Corpuscular Hemoglobin 28 pg (27-31); Mean Corpuscular Volume 87 fL (80-94); Mean Platelet Volume 9 um3 (7.4-10.4); Red Cell Distribution Width 16 % (10.5-15)
[2016-08-18 06:06] LABS: BUN/Creatinine Ratio 18.5 (8-20); Calcium 9.3 mg/dL (8.6-10.3); EGFR African American 47.7 (>60); EGFR Non-African American 37.1 (>60)
[2016-08-18] MEDS: Carvedilol TAB* 25 MG PO SCH ×2 (07:15→21:20)
[2016-08-18] MEDS: Insulin LISPRO* 1 UNITS UNIT SUBCUT SCH ×3 (08:56→17:39)
[2016-08-18] MEDS: Gabapentin CAP(*) 400 MG PO SCH ×2 (09:31→21:19)
[2016-08-18] MEDS: Torsemide TAB* 20 MG PO SCH (09:31)
[2016-08-18] MEDS: Furosemide IV* 10 MG/ML 10 ML VIAL (100 MG) IV SCH ×2 (09:31→17:40)
[2016-08-18] MEDS: Potassium Chlor TAB* 20 MEQ TAB.ER PO SCH (09:31)
[2016-08-18] MEDS: Atorvastatin* 80 MG TAB PO SCH (09:31)
[2016-08-18] MEDS: Magnesium Oxide TAB* 400 MG PO SCH ×2 (09:31→21:20)
[2016-08-18] MEDS: Aspirin EC Low Dose* 81 MG TAB.EC PO SCH (09:31)
[2016-08-18] MEDS: Pantoprazole TAB (NF) 40 MG TAB PO SCH (09:31)
[2016-08-18] MEDS: Clopidogrel TAB* 75 MG PO SCH (09:31)
[2016-08-18] MEDS: Spironolactone TAB* 25 MG PO SCH (09:31)
[2016-08-18] MEDS: Nicotine PATCH 21 MG/24 HR* PATCH TRANSDERM SCH (09:32)
[2016-08-18] MEDS ORDERED: Artificial Tears* 15 ML BTL BOTH EYES PRN (09:43)
--- NOTE | 2016-08-18 09:49 | ECHO ---
Patient: AHSAN MOORE [facility] Rec#: [id number] : 1950 Date: 08/18/2016 Age: 66y Height: 177.8 cm / 70.0 in Weight: 106.14 kg / 233.9 lbs Sex: M BSA: 2.23 Room#: 432 Admit Date#: 08/17/2016 Type: Inpatient Referring: Julio Castillo MD Reading: Berto Patiño MD [employer] Worker: Jojo Hooks RDCS CC: Judy Delacruz MD CC: Soo Mcdermott MD Transthoracic Echocardiogram Indication: CP/SOB BP: 115/68 HR: 55 Rhythm: Bradycardia Findings History: CVA,CHF,AR,COPD,active smoker,prior PCI,HLD,HTN with rx,PVD,GERD. Technical Comments: The study is technically limited due to the patient's history of COPD. The study is technically limited due to the patient's smoking history. Left Ventricle: The left ventricular chamber size is normal. Mild concentric left ventricular hypertrophy is observed. There is global hypokinesis of the left ventricle with minor regional variation. The estimated ejection fraction is 40-45%. Abnormal left ventricular diastolic function is observed. The basal inferior, mid inferior, and apical inferior wall segments are hypokinetic (score 2). Overall wallmotion score index is 2.00 Left Atrium: The left atrium is mild to moderately dilated. Right Ventricle: The right ventricular cavity size is normal. The right ventricular global systolic function is normal. Right Atrium: The right atrial cavity size is normal. Aortic Valve: The aortic valve structure is normal. There is no evidence of aortic regurgitation. There is no evidence of aortic stenosis. Mitral Valve: The mitral valve leaflets are mildly thickened. There is mild mitral regurgitation. There is no evidence of mitral stenosis. Tricuspid Valve: The tricuspid valve leaflets are normal. There is trace tricuspid regurgitation. Unable to estimate the right ventricular systolic pressure. There is evidence that pulmonary hypertension may be underestimated. Pulmonic Valve: The pulmonic valve appears normal. Pericardium: The pericardium appears normal. Aorta: There is no dilatation of the ascending aorta. There is no dilatation of the aortic arch. There is mild dilatation of the aortic root. Pulmonary Artery: The main pulmonary artery appears normal. Venous: The inferior vena cava is dilated. There is a greater than 50% respiratory change in the inferior vena cava dimension. Conclusions Mild concentric left ventricular hypertrophy is observed. There is global hypokinesis of the left ventricle with minor regional variation. The estimated ejection fraction is 40-45%. The basal inferior, mid inferior, and apical inferior wall segments are hypokinetic (score 2). The right ventricular global systolic function is normal. There is no evidence of aortic regurgitation. There is mild mitral regurgitation. There is trace tricuspid regurgitation. Unable to estimate the right ventricular systolic pressure. The pericardium appears normal. Compared to study of 06/11/16, the LV function is slightly lower. The degree of Mitral regurg is less (previous study had moderate MR) Measurements Name Value Normal Range RVIDd (AP) 2D 3.2 cm (0.9 - 2.6) RVDdMajor (2D) 3.3 cm (2.2 - 4.4) RAd ISD 4CH 5.5 cm (3.4 - 4.9) RA (A4C)W 3.1 cm (2.9 - 4.6) IVSd (2D) 1.2 cm (0.6 - 1) LVPWd (2D) 1.2 cm (0.6 - 1) LVIDd (2D) 4.8 cm (3.6 - 5.4) LVIDs (2D) 3.5 cm - LV FS (2D) 25 % (25 - 45) Aortic Annulus 2.2 cm (1.4 - 2.6) Ao root diameter (2D) 3.6 cm (2.1 - 3.5) Ascending Ao 3.1 cm (2.1 - 3.4) Aortic arch 2.3 cm (1.8 - 3.4) Descending Ao 0.6 cm - LA dimension (AP) 2D 4.6 cm (2.3 - 3.8) LAd ISD 4CH 5.2 cm (2.9 - 5.3) LA ISD 4CH W 3.8 cm (2.5 - 4.5) Name Value Normal Range LA ESV SP 4CH (A/L) 39 ml - LA ESV SP 2CH (A/L) 42 ml - LA ESV BP (A/L) 47 ml - LA ESV BP (A/L) index 18.7 ml/m2 - LA ESV SP 4CH (MOD) 38 ml - LA ESV SP 2CH (MOD) 39 ml - Name Value Normal Range MV E-wave Vmax 0.4 m/sec - MV deceleration time 363 msec - MV A-wave Vmax 0.7 m/sec - MV E:A ratio 0.54 ratio - LV septal e' Vmax 0.05 m/sec - LV lateral e' Vmax 0.08 m/sec - LV E:e' septal ratio 8 ratio - LV E:e' lateral ratio 5 ratio - Name Value Normal Range AV Vmax 1.5 m/sec - AV VTI 28.2 cm - AV peak gradient 5.26 mmHg - AV mean gradient 2.41 mmHg - LVOT Vmax 1 m/sec - LVOT VTI 20 cm - LVOT peak gradient 3.61 mmHg - LVOT mean gradient 1.5 mmHg - Name Value Normal Range IVC diameter 2.4 cm - Name Value Normal Range PV Vmax 0.7 m/sec - PV peak gradient 2.05 mmHg - Wallmotion BAS Not Seen BA Not Seen BAL Not Seen ANSON Not Seen BI Hypokinetic BIS Not Seen MAS Not Seen MA Not Seen MAL Not Seen MIL Not Seen AR Hypokinetic MIS Not Seen Not Seen AA Not Seen AL Not Seen AI Hypokinetic APEX Not Seen
[2016-08-18] MEDS: Amiodarone TAB* 200 MG PO SCH (09:51)
--- NOTE | 2016-08-18 10:15 | PN ---
Subjective Date of Service: 08/18/16 Interval History: Patient seen and examined at bedside. He reports that his dyspnea is improved this AM and that the burning sensation in his chest went away last night. He does report an itchy, irritated left eye with some yellow discharge this AM. Denies fever, chills, CP, abd pain, n/v, leg pain this AM. Plan for stress test and echocardiogram today. Telemetry: Sinus rhythm 50s-70s Family History: Unchanged from Admission Social History: Unchanged from Admission Past Medical History: Unchanged from Admission Objective Active Medications: Acetaminophen (Tylenol Tab*) 650 mg PO Q4H PRN PRN Reason: FEVER/PAIN Last Admin: 08/17/16 15:03 Dose: 650 mg Albuterol/Ipratropium (Duoneb (Albuterol 2.5 Mg/Ipratropium 0.5 Mg)) 1 neb INH Q2H PRN PRN Reason: SOB/WHEEZING Last Admin: 08/18/16 05:19 Dose: 1 neb Amiodarone HCl (Cordarone Tab*) 200 mg PO DAILY [facility] Last Admin: 08/18/16 09:51 Dose: 200 mg Aspirin (Aspirin Ec Low Dose*) 81 mg PO DAILY [facility] Last Admin: 08/18/16 09:31 Dose: 81 mg Atorvastatin Calcium (Lipitor*) 80 mg PO DAILY [facility] Last Admin: 08/18/16 09:31 Dose: 80 mg Carvedilol (Coreg Tab*) 25 mg PO BID [facility] Last Admin: 08/18/16 07:15 Dose: Not Given Clopidogrel Bisulfate (Plavix Tab*) 75 mg PO DAILY [facility] Last Admin: 08/18/16 09:31 Dose: 75 mg Dextrose (D50w Syringe 50 Ml*) 12.5 gm IV PUSH .FOR FS < 60 - SS PRN PRN Reason: FS < 60 Furosemide (Lasix Iv*) 60 mg IV 0800,1700 [facility] Last Admin: 08/18/16 09:31 Dose: 60 mg Gabapentin (Neurontin Cap(*)) 800 mg PO BID [facility] Last Admin: 08/18/16 09:31 Dose: 800 mg Heparin Sodium (Porcine) (Heparin Vial(*)) 0 units IV .PER PROTOCOL [facility] PRN Reason: Protocol Heparin Sodium/Dextrose (Heparin Drip 25,000 Units(*)) 25,000 units in 500 mls @ 0 mls/hr IV .NO INITIAL BOLUS ALEXX; As Directed PRN Reason: Protocol Last Admin: 08/17/16 20:27 Dose: 31 mls/hr Insulin Human Lispro (Humalog*) 0 units SUBCUT AC ALEXX PRN Reason: Protocol Last Admin: 08/18/16 08:56 Dose: Not Given Magnesium Oxide (Magox 400 Tab*) 400 mg PO BID [facility] Last Admin: 08/18/16 09:31 Dose: 400 mg Melatonin (Melatonin (Nf)) 3 mg PO BEDTIME PRN PRN Reason: INSOMNIA Last Admin: 08/18/16 00:16 Dose: 3 mg Nicotine (Nicotine Patch 21 Mg/24 Hr*) 1 patch TRANSDERM Q24HR [facility] Last Admin: 08/18/16 09:32 Dose: 1 patch Nitroglycerin (Nitroglycerin Tab 0.4 Mg*) 0.4 mg SL Q5M PRN PRN Reason: PAIN - CHEST Pantoprazole Sodium (Protonix Tab (Nf)) 40 mg PO QAM [facility] Last Admin: 08/18/16 09:31 Dose: 40 mg Polyvinyl Alcohol (Polyvinyl Alcohol 1.4% Opth*) 1 drop BOTH EYES Q2H PRN PRN Reason: DRY EYE Potassium Chloride (Klor Con Er Tab*) 20 meq PO DAILY [facility] Last Admin: 08/18/16 09:31 Dose: 20 meq Spironolactone (Aldactone Tab*) 25 mg PO DAILY [facility] Last Admin: 08/18/16 09:31 Dose: 25 mg Tamsulosin HCl (Flomax Cap*) 0.4 mg PO BEDTIME [facility] Last Admin: 08/17/16 20:27 Dose: 0.4 mg Torsemide (Demadex*) 20 mg PO DAILY [facility] Last Admin: 08/18/16 09:31 Dose: 20 mg Tramadol HCl (Ultram*) 50 mg PO Q6H PRN PRN Reason: PAIN - BREAKTHROUGH Last Admin: 08/18/16 05:04 Dose: 50 mg Vital Signs 08/17/16 08/17/16 08/17/16 10:57 11:05 13:04 Temperature 97.7 F Pulse Rate 71 Respiratory 16 20 20 Rate Blood Pressure 103/73 (mmHg) O2 Sat by Pulse 95 Oximetry 08/17/16 08/17/16 08/17/16 15:04 15:18 15:41 Temperature 97.7 F Pulse Rate 76 73 Respiratory 20 17 Rate Blood Pressure 102/69 (mmHg) O2 Sat by Pulse 94 93 Oximetry 08/17/16 08/17/16 08/17/16 19:50 20:00 20:24 Temperature 97.4 F Pulse Rate 74 74 Respiratory 18 18 Rate Blood Pressure 108/69 (mmHg) O2 Sat by Pulse 93 94 Oximetry 08/17/16 08/17/16 08/17/16 20:27 20:54 22:00 Temperature Pulse Rate 73 Respiratory 18 16 18 Rate Blood Pressure (mmHg) O2 Sat by Pulse 93 Oximetry 08/17/16 08/17/16 08/18/16 22:27 23:42 04:23 Temperature 97.4 F 97.4 F Pulse Rate 70 68 Respiratory 18 20 20 Rate Blood Pressure 122/70 115/68 (mmHg) O2 Sat by Pulse 92 99 Oximetry 08/18/16 08/18/16 08/18/16 05:04 05:19 07:37 Temperature 97.5 F Pulse Rate 85 58 Respiratory 19 17 16 Rate Blood Pressure 122/73 (mmHg) O2 Sat by Pulse 95 94 Oximetry 08/18/16 09:31 Temperature Pulse Rate Respiratory 18 Rate Blood Pressure (mmHg) O2 Sat by Pulse Oximetry Oxygen Devices in Use Now: None Appearance: Male patient, ambulating in halls, in NAD Eyes: PERRLA, - - conjunctivitis of left eye Ears/Nose/Mouth/Throat: Clear Oropharnyx, Mucous Membranes Moist Neck: NL Appearance and Movements; NL JVP Respiratory: Symmetrical Chest Expansion and Respiratory Effort, Clear to Auscultation - diminished Cardiovascular: NL Sounds; No Murmurs; No JVD, RRR Abdominal: - - protuberant, non-tender, BS x 4, with large reproducible hernia Extremities: - - LLE edema, chronic in nature Skin: No Rash or Ulcers Neurological: Alert and Oriented x 3, NL Gait, NL Muscle Strength and Tone Lines/Tubes/Other Access: Clean, Dry and Intact Peripheral IV Nutrition: Taking PO's Result Diagrams: 08/18/16 05:37 08/18/16 05:37 Additional Lab and Data: Lab Results 08/16/16 08/16/16 08/16/16 Range/Units 22:07 22:07 22:07 WBC 11.3 H (3.5-10.8) 10^3/ul RBC 5.75 H (4.0-5.4) 10^6/ul Hgb 16.2 (14.0-18.0) g/dl Hct 50 (42-52) % MCV 87 (80-94) fL MCH 28 (27-31) pg MCHC 33 (31-36) g/dl RDW 15 (10.5-15) % Plt Count 242 (150-450) 10^3/ul MPV 10 (7.4-10.4) um3 Neut % (Auto) 71.1 (38-83) % Lymph % (Auto) 15.6 L (25-47) % [place] % (Auto) 6.8 (1-9) % Eos % (Auto) 5.5 (0-6) % Baso % (Auto) 1.0 (0-2) % Absolute Neuts (auto) 8.0 H (1.5-7.7) 10^3/ul Absolute Lymphs (auto) 1.8 (1.0-4.8) 10^3/ul Absolute Monos (auto) 0.8 (0-0.8) 10^3/ul Absolute Eos (auto) 0.6 (0-0.6) 10^3/ul Absolute Basos (auto) 0.1 (0-0.2) 10^3/ul Absolute Nucleated RBC 0 10^3/ul Nucleated RBC % 0 INR (Anticoag Therapy) (0.89-1.11) D-Dimer, Quantitative (Less Than 230) ng/mL Sodium 135 (133-145) mmol/L Potassium 4.0 (3.5-5.0) mmol/L Chloride 96 L (101-111) mmol/L Carbon Dioxide 29 (22-32) mmol/L Anion Gap 10 (2-11) mmol/L BUN 23 (6-24) mg/dL Creatinine 1.73 H (0.67-1.17) mg/dL Est GFR ( Amer) 51.2 (>60) Est GFR (Non-Af Amer) 39.8 (>60) BUN/Creatinine Ratio 13.3 (8-20) Glucose 169 H (70-100) mg/dL Lactic Acid 2.2 H* (0.5-2.0) mmol/L Calcium 9.4 (8.6-10.3) mg/dL Total Bilirubin 0.40 (0.2-1.0) mg/dL AST 15 (13-39) U/L ALT 16 (7-52) U/L Alkaline Phosphatase 126 H (34-104) U/L Troponin I 0.03 (<0.04) ng/mL C-Reactive Protein 8.56 H (< 5.00) mg/L B-Natriuretic Peptide ( - 100) pg/mL Total Protein 7.1 (6.4-8.9) g/dL Albumin 3.9 (3.2-5.2) g/dL Globulin 3.2 (2-4) g/dL Albumin/Globulin Ratio 1.2 (1-3) Lipase 43 (11.0-82.0) U/L 08/16/16 08/16/16 Range/Units 22:07 22:07 WBC (3.5-10.8) 10^3/ul RBC (4.0-5.4) 10^6/ul Hgb (14.0-18.0) g/dl Hct (42-52) % MCV (80-94) fL MCH (27-31) pg MCHC (31-36) g/dl RDW (10.5-15) % Plt Count (150-450) 10^3/ul MPV (7.4-10.4) um3 Neut % (Auto) (38-83) % Lymph % (Auto) (25-47) % [place] % (Auto) (1-9) % Eos % (Auto) (0-6) % Baso % (Auto) (0-2) % Absolute Neuts (auto) (1.5-7.7) 10^3/ul Absolute Lymphs (auto) (1.0-4.8) 10^3/ul Absolute Monos (auto) (0-0.8) 10^3/ul Absolute Eos (auto) (0-0.6) 10^3/ul Absolute Basos (auto) (0-0.2) 10^3/ul Absolute Nucleated RBC 10^3/ul Nucleated RBC % INR (Anticoag Therapy) 0.84 L (0.89-1.11) D-Dimer, Quantitative 370 H (Less Than 230) ng/mL Sodium (133-145) mmol/L Potassium (3.5-5.0) mmol/L Chloride (101-111) mmol/L Carbon Dioxide (22-32) mmol/L Anion Gap (2-11) mmol/L BUN (6-24) mg/dL Creatinine (0.67-1.17) mg/dL Est GFR ( Amer) (>60) Est GFR (Non-Af Amer) (>60) BUN/Creatinine Ratio (8-20) Glucose (70-100) mg/dL Lactic Acid (0.5-2.0) mmol/L Calcium (8.6-10.3) mg/dL Total Bilirubin (0.2-1.0) mg/dL AST (13-39) U/L ALT (7-52) U/L Alkaline Phosphatase (34-104) U/L Troponin I (<0.04) ng/mL C-Reactive Protein (< 5.00) mg/L B-Natriuretic Peptide 200 H ( - 100) pg/mL Total Protein (6.4-8.9) g/dL Albumin (3.2-5.2) g/dL Globulin (2-4) g/dL Albumin/Globulin Ratio (1-3) Lipase (11.0-82.0) U/L Assess/Plan/Problems-Billing Assessment: Mr. Chen is a 66 yo patient with a PMH of CVA, CAD w/NSTEMI, diastolic HF, PVD , COPD, DM, HTN, HLD, GERD, BPH, and bladder cancer who presented to the ED with SOB and chest discomfort. - Patient Problems (1) Chest pain Code(s): R07.9 - CHEST PAIN, UNSPECIFIED Comment: Atypical description with c/o burning and radiating pain. Troponins negative, no noted ischemia on EKG Patient still c/o substernal chest pain; given risk factors, will check stress test Echocardiogram ordered and pending. Unable to have stress test and VQ scan; patient has low suspicion for PE, will obtain stress test. Doppler LLE to r/o DVT (2) Conjunctivitis Code(s): H10.9 - UNSPECIFIED CONJUNCTIVITIS Comment: Suspect beginning of left eye conjunctivitis Polytrim eye gtt ordered. (3) Acute on chronic diastolic CHF (congestive heart failure) Code(s): I50.33 - ACUTE ON CHRONIC DIASTOLIC (CONGESTIVE) HEART FAILURE Comment: 1# weight loss, patient reports feeling better today in terms of abdominal fullness and LE edema. May be in mild exacerbation, but no increased oxygen needs. Patient does report previously increased abdominal fullness and LE edema. Continue IV furosemide and spironolactone. Continue to monitor daily weights and I/O. (4) CAD (coronary artery disease) Status: Chronic Code(s): I25.10 - ATHSCL HEART DISEASE OF [place] CORONARY ARTERY W/O ANG PCTRS Comment: Hx of CAD with stents and vascular surgeries Continue ASA/clopidogrel, BB, amiodarone (5) COPD (chronic obstructive pulmonary disease) Code(s): J44.9 - CHRONIC OBSTRUCTIVE PULMONARY DISEASE, UNSPECIFIED Comment: Appears stable. Continue prn nebulizers. (6) Diabetes Code(s): E11.9 - TYPE 2 DIABETES MELLITUS WITHOUT COMPLICATIONS Comment: FSBG ACHS with Lispro SS (7) GERD (gastroesophageal reflux disease) Code(s): K21.9 - GASTRO-ESOPHAGEAL REFLUX DISEASE WITHOUT ESOPHAGITIS Comment : Continue pantoprazole. (8) BPH (benign prostatic hyperplasia) Code(s): N40.0 - BENIGN PROSTATIC HYPERPLASIA WITHOUT LOWER URINRY TRACT SYMP Comment: Continue tamsulosin. (9) Tobacco abuse Code(s): Z72.0 - TOBACCO USE Comment: Nicotine replacement Smoking cessation education. (10) DVT prophylaxis Status: Acute Code(s): [id number] - Comment: Heparin gtt Status and Disposition: OBV admit. D/c to home when medically stable.
[2016-08-18] MEDS: Acetaminophen TAB* 325 MG PO PRN (10:38)
[2016-08-18] MEDS: Polymyx/Trimethoprim OPTH* 10 ML BTL LEFT EYE SCH ×5 (12:47→23:17)
[2016-08-18] MEDS ORDERED: predniSONE TAB* 20 MG PO ONE (12:52)
--- NOTE | 2016-08-18 13:17 | RAD ---
HISTORY: Left lower extremity edema COMPARISONS: None relevant TECHNIQUE: Multiple transverse and longitudinal ultrasound images were obtained of the left lower extremity from the level of the common femoral vein inferiorly through to the infrapopliteal veins using grayscale, color Doppler, and spectral Doppler imaging with and without compression and with augmentation. Comparison images were obtained of the contralateral common femoral vein. FINDINGS: VEINS: The venous system of the left lower extremity is compressible throughout its course, with normal flow on color Doppler imaging and normal response to augmentation on spectral Doppler imaging. SOFT TISSUES: Unremarkable. OTHER FINDINGS: The patient is status post greater saphenous vein harvesting for bypass graft IMPRESSION: NO LEFT LOWER EXTREMITY DEEP VEIN THROMBOSIS
--- NOTE | 2016-08-18 13:42 | RAD ---
Indication: Shortness of breath. Single frontal view of the chest performed at 1325 hours was reviewed. Comparison is made with previous exam dated August 16, 2016. No mediastinal shift is noted. Heart is at the upper limits of normal in size. Lung valladares demonstrate no pleural fluid, pneumonia or pneumothorax. IMPRESSION: NO ACTIVE CARDIOPULMONARY DISEASE IS NOTED.
[2016-08-18] MEDS: Heparin DRIP 25,000 UNITS(*) 25,000 UNITS/500 ML BAG IV SCH (14:34)
--- NOTE | 2016-08-18 16:15 | PN ---
Hospitalist Progress Note Patient unable to have stress test. Continues to report SOB and wheezing but denies CP. Troponin negative and no significant changes to EKG. Stress test cancelled. Suspect COPD exacerbation and CHF exacerbation. Patient responded well to nebulizers and prednisone. Suspect CHF exacerbation likely secondary to hidden sources of sodium in diet, as patient states he has been trying to reduce his salt intake. Continue IV furosemide and prednisone. Plan for outpatient stress test. D/c heparin gtt.
[2016-08-18] MEDS: Tamsulosin CAP* 0.4 MG PO SCH (21:18)
[2016-08-19] MEDS: Polymyx/Trimethoprim OPTH* 10 ML BTL LEFT EYE SCH ×3 (04:05→08:54)
[2016-08-19 04:53] LABS: Hematocrit 46 % (42-52); Hemoglobin 14.9 g/dl (14.0-18.0); Mean Corpuscular HGB Conc 33 g/dl (31-36); Mean Corpuscular Hemoglobin 28 pg (27-31); Mean Corpuscular Volume 87 fL (80-94); Mean Platelet Volume 9 um3 (7.4-10.4); Red Blood Count 5.25 10^6/ul (4.0-5.4); Red Cell Distribution Width 15 % (10.5-15); White Blood Count 10.7 10^3/ul (3.5-10.8)
[2016-08-19 08:06] VITALS: BP 125/76
--- NOTE | 2016-08-19 08:19 | PN ---
Subjective Date of Service: 08/19/16 Interval History: Patient seen and examined at bedside. He denies any chest pain, wheezing, SOB, abd pain, n/v. He does feel a little bloated but thinks that is secondary to not having a bowel movement recently. He feels better and would like to go home. Telemetry: Sinus rhythm 50s-60s Family History: Unchanged from Admission Social History: Unchanged from Admission Past Medical History: Unchanged from Admission Objective Active Medications: Acetaminophen (Tylenol Tab*) 650 mg PO Q4H PRN PRN Reason: FEVER/PAIN Last Admin: 08/18/16 10:38 Dose: 650 mg Albuterol/Ipratropium (Duoneb (Albuterol 2.5 Mg/Ipratropium 0.5 Mg)) 1 neb INH Q2H PRN PRN Reason: SOB/WHEEZING Last Admin: 08/18/16 12:00 Dose: 1 neb Amiodarone HCl (Cordarone Tab*) 200 mg PO DAILY [facility] Last Admin: 08/18/16 09:51 Dose: 200 mg Aspirin (Aspirin Ec Low Dose*) 81 mg PO DAILY [facility] Last Admin: 08/18/16 09:31 Dose: 81 mg Atorvastatin Calcium (Lipitor*) 80 mg PO DAILY [facility] Last Admin: 08/18/16 09:31 Dose: 80 mg Carvedilol (Coreg Tab*) 25 mg PO BID [facility] Last Admin: 08/18/16 21:20 Dose: 25 mg Clopidogrel Bisulfate (Plavix Tab*) 75 mg PO DAILY [facility] Last Admin: 08/18/16 09:31 Dose: 75 mg Dextrose (D50w Syringe 50 Ml*) 12.5 gm IV PUSH .FOR FS < 60 - SS PRN PRN Reason: FS < 60 Furosemide (Lasix Iv*) 60 mg IV 0800,1700 [facility] Last Admin: 08/18/16 17:40 Dose: 60 mg Gabapentin (Neurontin Cap(*)) 800 mg PO BID [facility] Last Admin: 08/18/16 21:19 Dose: 800 mg Insulin Human Lispro (Humalog*) 0 units SUBCUT AC [facility] PRN Reason: Protocol Last Admin: 08/18/16 17:39 Dose: 6 units Magnesium Oxide (Magox 400 Tab*) 400 mg PO BID [facility] Last Admin: 08/18/16 21:20 Dose: 400 mg Melatonin (Melatonin (Nf)) 3 mg PO BEDTIME PRN PRN Reason: INSOMNIA Last Admin: 08/18/16 21:21 Dose: 3 mg Nicotine (Nicotine Patch 21 Mg/24 Hr*) 1 patch TRANSDERM Q24HR [facility] Last Admin: 08/18/16 09:32 Dose: 1 patch Nitroglycerin (Nitroglycerin Tab 0.4 Mg*) 0.4 mg SL Q5M PRN PRN Reason: PAIN - CHEST Pantoprazole Sodium (Protonix Tab (Nf)) 40 mg PO QAM [facility] Last Admin: 08/18/16 09:31 Dose: 40 mg Polymyxin/Trimethoprim Sulfate (Polytrim Ophth*) 1 drop LEFT EYE Q3H [facility] Last Admin: 08/19/16 05:47 Dose: 1 drop Polyvinyl Alcohol (Polyvinyl Alcohol 1.4% Opth*) 1 drop BOTH EYES Q2H PRN PRN Reason: DRY EYE Last Admin: 08/18/16 10:38 Dose: 1 marisol Potassium Chloride (Klor Con Er Tab*) 20 meq PO DAILY [facility] Last Admin: 08/18/16 09:31 Dose: 20 meq Prednisone (Deltasone Tab*) 40 mg PO DAILY WITH MEAL [facility] Spironolactone (Aldactone Tab*) 25 mg PO DAILY [facility] Last Admin: 08/18/16 09:31 Dose: 25 mg Tamsulosin HCl (Flomax Cap*) 0.4 mg PO BEDTIME [facility] Last Admin: 08/18/16 21:18 Dose: 0.4 mg Tramadol HCl (Ultram*) 50 mg PO Q6H PRN PRN Reason: PAIN - BREAKTHROUGH Last Admin: 08/18/16 21:19 Dose: 50 mg Vital Signs 08/18/16 08/18/16 08/18/16 09:31 11:31 11:59 Temperature 97.4 F Pulse Rate 54 Respiratory 18 16 20 Rate Blood Pressure 122/66 (mmHg) O2 Sat by Pulse 91 Oximetry 08/18/16 08/18/16 08/18/16 12:02 15:51 19:36 Temperature 97.4 F 97.8 F Pulse Rate 59 71 74 Respiratory 20 18 18 Rate Blood Pressure 119/64 120/68 (mmHg) O2 Sat by Pulse 99 90 90 Oximetry 08/18/16 08/18/16 08/18/16 19:54 21:19 23:19 Temperature Pulse Rate 74 Respiratory 18 17 17 Rate Blood Pressure (mmHg) O2 Sat by Pulse 90 Oximetry 08/18/16 08/19/16 08/19/16 23:20 03:35 07:10 Temperature 97.5 F 97.9 F 97.2 F Pulse Rate 71 57 57 Respiratory 20 16 18 Rate Blood Pressure 118/72 122/68 125/76 (mmHg) O2 Sat by Pulse 91 90 91 Oximetry Oxygen Devices in Use Now: None Appearance: Male patient, sitting on edge of bed, in NAD Eyes: PERRLA Ears/Nose/Mouth/Throat: Clear Oropharnyx, Mucous Membranes Moist Neck: NL Appearance and Movements; NL JVP Respiratory: Symmetrical Chest Expansion and Respiratory Effort, Clear to Auscultation - diminshed, prolonged expiratory phase, mild wheezing noted in bases Cardiovascular: NL Sounds; No Murmurs; No JVD, RRR Abdominal: NL Sounds; No Tenderness; No Distention - hernia Extremities: - - LLE edema, chronic Skin: No Rash or Ulcers Neurological: Alert and Oriented x 3 Lines/Tubes/Other Access: Clean, Dry and Intact Peripheral IV Nutrition: Taking PO's Result Diagrams: 08/19/16 04:16 08/18/16 05:37 Additional Lab and Data: Lab Results 08/16/16 08/16/16 08/16/16 Range/Units 22:07 22:07 22:07 WBC 11.3 H (3.5-10.8) 10^3/ul RBC 5.75 H (4.0-5.4) 10^6/ul Hgb 16.2 (14.0-18.0) g/dl Hct 50 (42-52) % MCV 87 (80-94) fL MCH 28 (27-31) pg MCHC 33 (31-36) g/dl RDW 15 (10.5-15) % Plt Count 242 (150-450) 10^3/ul MPV 10 (7.4-10.4) um3 Neut % (Auto) 71.1 (38-83) % Lymph % (Auto) 15.6 L (25-47) % [place] % (Auto) 6.8 (1-9) % Eos % (Auto) 5.5 (0-6) % Baso % (Auto) 1.0 (0-2) % Absolute Neuts (auto) 8.0 H (1.5-7.7) 10^3/ul Absolute Lymphs (auto) 1.8 (1.0-4.8) 10^3/ul Absolute Monos (auto) 0.8 (0-0.8) 10^3/ul Absolute Eos (auto) 0.6 (0-0.6) 10^3/ul Absolute Basos (auto) 0.1 (0-0.2) 10^3/ul Absolute Nucleated RBC 0 10^3/ul Nucleated RBC % 0 INR (Anticoag Therapy) (0.89-1.11) D-Dimer, Quantitative (Less Than 230) ng/mL Sodium 135 (133-145) mmol/L Potassium 4.0 (3.5-5.0) mmol/L Chloride 96 L (101-111) mmol/L Carbon Dioxide 29 (22-32) mmol/L Anion Gap 10 (2-11) mmol/L BUN 23 (6-24) mg/dL Creatinine 1.73 H (0.67-1.17) mg/dL Est GFR ( Amer) 51.2 (>60) Est GFR (Non-Af Amer) 39.8 (>60) BUN/Creatinine Ratio 13.3 (8-20) Glucose 169 H (70-100) mg/dL Lactic Acid 2.2 H* (0.5-2.0) mmol/L Calcium 9.4 (8.6-10.3) mg/dL Total Bilirubin 0.40 (0.2-1.0) mg/dL AST 15 (13-39) U/L ALT 16 (7-52) U/L Alkaline Phosphatase 126 H (34-104) U/L Troponin I 0.03 (<0.04) ng/mL C-Reactive Protein 8.56 H (< 5.00) mg/L B-Natriuretic Peptide ( - 100) pg/mL Total Protein 7.1 (6.4-8.9) g/dL Albumin 3.9 (3.2-5.2) g/dL Globulin 3.2 (2-4) g/dL Albumin/Globulin Ratio 1.2 (1-3) Lipase 43 (11.0-82.0) U/L 08/16/16 08/16/16 Range/Units 22:07 22:07 WBC (3.5-10.8) 10^3/ul RBC (4.0-5.4) 10^6/ul Hgb (14.0-18.0) g/dl Hct (42-52) % MCV (80-94) fL MCH (27-31) pg MCHC (31-36) g/dl RDW (10.5-15) % Plt Count (150-450) 10^3/ul MPV (7.4-10.4) um3 Neut % (Auto) (38-83) % Lymph % (Auto) (25-47) % [place] % (Auto) (1-9) % Eos % (Auto) (0-6) % Baso % (Auto) (0-2) % Absolute Neuts (auto) (1.5-7.7) 10^3/ul Absolute Lymphs (auto) (1.0-4.8) 10^3/ul Absolute Monos (auto) (0-0.8) 10^3/ul Absolute Eos (auto) (0-0.6) 10^3/ul Absolute Basos (auto) (0-0.2) 10^3/ul Absolute Nucleated RBC 10^3/ul Nucleated RBC % INR (Anticoag Therapy) 0.84 L (0.89-1.11) D-Dimer, Quantitative 370 H (Less Than 230) ng/mL Sodium (133-145) mmol/L Potassium (3.5-5.0) mmol/L Chloride (101-111) mmol/L Carbon Dioxide (22-32) mmol/L Anion Gap (2-11) mmol/L BUN (6-24) mg/dL Creatinine (0.67-1.17) mg/dL Est GFR ( Amer) (>60) Est GFR (Non-Af Amer) (>60) BUN/Creatinine Ratio (8-20) Glucose (70-100) mg/dL Lactic Acid (0.5-2.0) mmol/L Calcium (8.6-10.3) mg/dL Total Bilirubin (0.2-1.0) mg/dL AST (13-39) U/L ALT (7-52) U/L Alkaline Phosphatase (34-104) U/L Troponin I (<0.04) ng/mL C-Reactive Protein (< 5.00) mg/L B-Natriuretic Peptide 200 H ( - 100) pg/mL Total Protein (6.4-8.9) g/dL Albumin (3.2-5.2) g/dL Globulin (2-4) g/dL Albumin/Globulin Ratio (1-3) Lipase (11.0-82.0) U/L Assess/Plan/Problems-Billing Assessment: Mr. Chen is a 66 yo patient with a PMH of CVA, CAD w/NSTEMI, diastolic HF, PVD , COPD, DM, HTN, HLD, GERD, BPH, and bladder cancer who presented to the ED with SOB and chest discomfort. - Patient Problems (1) Chest pain Code(s): R07.9 - CHEST PAIN, UNSPECIFIED Comment: Suspect secondary to CHF exacerbation Patient has denied chest pain over past 2 days Troponins negative, no noted ischemia on EKG Unable to tolerate laying flat in nuclear med due to COPD Patient can have outpatient stress test once recovered. Echo shows EF 40-45%. LE doppler negative for DVT - edema secondary to PVD (2) COPD (chronic obstructive pulmonary disease) Code(s): J44.9 - CHRONIC OBSTRUCTIVE PULMONARY DISEASE, UNSPECIFIED Comment: Mild exacerbation, as patient has dyspneic episode in nuclear med with overt wheezing. Wheezing improved with prednisone and nebulizer. Continue prednisone for 5 day course and prn neublizers. Patient has home nebulizer machine. (3) Acute on chronic diastolic CHF (congestive heart failure) Code(s): I50.33 - ACUTE ON CHRONIC DIASTOLIC (CONGESTIVE) HEART FAILURE Comment: With exacerbation. Patient has had 4# weight loss with notable improvement in abdominal fullness and LE edema. No increased oxygen needs. Continue IV furosemide and spironolactone. Resume torsemide on discharge. Follow-up with cardiology. [facility] cardiology will call pt for follow-up. (4) Conjunctivitis Code(s): H10.9 - UNSPECIFIED CONJUNCTIVITIS Comment: Improved, continue Polytrim eye gtt. (5) CAD (coronary artery disease) Status: Chronic Code(s): I25.10 - ATHSCL HEART DISEASE OF [place] CORONARY ARTERY W/O ANG PCTRS Comment: Hx of CAD with stents and vascular surgeries Continue ASA/clopidogrel, BB, amiodarone (6) Diabetes Code(s): E11.9 - TYPE 2 DIABETES MELLITUS WITHOUT COMPLICATIONS Comment: FSBG ACHS with Lispro SS (7) GERD (gastroesophageal reflux disease) Code(s): K21.9 - GASTRO-ESOPHAGEAL REFLUX DISEASE WITHOUT ESOPHAGITIS Comment : Continue pantoprazole. (8) BPH (benign prostatic hyperplasia) Code(s): N40.0 - BENIGN PROSTATIC HYPERPLASIA WITHOUT LOWER URINRY TRACT SYMP Comment: Continue tamsulosin. (9) Tobacco abuse Code(s): Z72.0 - TOBACCO USE Comment: Nicotine replacement Smoking cessation education. (10) DVT prophylaxis Status: Acute Code(s): [id number] - Comment: SQ heparin Status and Disposition: OBV admit. D/c to home.
[2016-08-19] MEDS ORDERED: predniSONE TAB* 20 MG PO SCH (08:30)
[2016-08-19] MEDS: Nicotine PATCH 21 MG/24 HR* PATCH TRANSDERM SCH (08:53)
[2016-08-19] MEDS: Furosemide IV* 10 MG/ML 10 ML VIAL (100 MG) IV SCH (08:54)
[2016-08-19] MEDS: Spironolactone TAB* 25 MG PO SCH (08:55)
[2016-08-19] MEDS: Aspirin EC Low Dose* 81 MG TAB.EC PO SCH (08:55)
[2016-08-19] MEDS: Pantoprazole TAB (NF) 40 MG TAB PO SCH (08:55)
[2016-08-19] MEDS: Magnesium Oxide TAB* 400 MG PO SCH (08:55)
[2016-08-19] MEDS: Gabapentin CAP(*) 400 MG PO SCH (08:56)
[2016-08-19] MEDS: Clopidogrel TAB* 75 MG PO SCH (08:57)
[2016-08-19] MEDS: Potassium Chlor TAB* 20 MEQ TAB.ER PO SCH (08:57)
[2016-08-19] MEDS: Atorvastatin* 80 MG TAB PO SCH (08:58)
[2016-08-19] MEDS: Carvedilol TAB* 25 MG PO SCH (08:58)
[2016-08-19] MEDS: Amiodarone TAB* 200 MG PO SCH (08:58)
[2016-08-19] MEDS: Insulin LISPRO* 1 UNITS UNIT SUBCUT SCH (08:58)
[2016-08-19] MEDS: traMADol TAB* 50 MG PO PRN (09:29)
--- NOTE | 2016-08-20 00:53 | DS ---
DISCHARGE SUMMARY: DATE OF ADMISSION: 08/17/16 DATE OF DISCHARGE: 08/19/16 PROVIDER: Liban Sosa NP PRIMARY CARE PROVIDER: Dr. Mcdermtot ATTENDING PHYSICIAN: Dr. Kj Jeffers *(as dictated by Liban Sosa NP). PRIMARY DISCHARGE DIAGNOSES: 1. Congestive heart failure exacerbation. 2. Chronic obstructive pulmonary disease exacerbation. SECONDARY DISCHARGE DIAGNOSES: 1. Coronary artery disease. 2. History of N-STEMI with stent x3. 3. History of cerebrovascular accident. 4. Diastolic heart failure. 5. Peripheral vascular disease, status post fem-pop bypass 4 years ago. 6. Carotid endarterectomy. 7. Chronic obstructive pulmonary disease. 8. Type 2 diabetes. 9. Hypertension. 10. Hyperlipidemia. 11. Bladder cancer, status post TURP and BCG. 12. Urolithiasis. 13. Gastroesophageal reflux disease. 14. Benign prostatic hypertrophy. 15. Sciatica. 16. Tobacco use disorder. 17. Hiatal hernia. MEDICATIONS AT DISCHARGE: 1. Spironolactone 25 mg daily. 2. Omeprazole 20 mg q.a.m. 3. Nitroglycerin 0.4 mg sublingual q. 5 minutes p.r.n. 4. Magnesium 400 mg b.i.d. 5. Gabapentin 800 mg b.i.d. 6. Carvedilol 25 mg b.i.d. 7. Atorvastatin 80 mg daily. 8. Aspirin 81 mg daily. 9. Amiodarone 200 mg daily. 10. DuoNeb one nebulizer treatment q. 6h. p.r.n. 11. Janumet one tab b.i.d. 12. Potassium chloride ER 20 mEq daily. 13. Plavix 75 mg daily. 14. Torsemide 20 mg daily. 15. Tamsulosin 0.4 mg at bedtime. 16. Prednisone 40 mg daily x4 more days. This is a new medication. 17. Polytrim eye drops one drop to the left eye q. 3h. This is a new medication to treat acute conjunctivitis. 18. Magnesium oxide 400 mg b.i.d. A refill was sent for this prescription, which is on the basis of previous medication list. HOSPITAL TESTING DURING THIS ADMISSION: 1. Chest x-ray from 08/16/16. Impression: No acute cardiopulmonary disease is noted. 2. Transthoracic echocardiogram: Conclusions: Mild concentric left ventricular hypertrophy is observed. There is global hypokinesis of the left ventricle with some minor regional variation. The estimated ejection fraction is 40% to 45%. The basal inferior, mid inferior, and apical inferior wall segments are hypokinetic (score 2). The right ventricular global systolic function is normal. There is no evidence of aortic regurgitation. There is mild mitral regurgitation. There is trace tricuspid regurgitation. I am to estimate the right ventricular systolic pressure. The pericardium appears normal. Compared to study of 06/11/16, the LV function is slightly lower. The degree of mitral regurgitation is less (previous study had moderate MR). 3. Venous Doppler study from 08/18/16. No left lower extremity deep vein thrombosis. HOSPITAL COURSE OF STAY: For full details, please refer to the H and P provided by Dr. Castillo on 08/17/16. In summary, Mr. Chen is a 66-year-old gentleman who presented to the emergency room with complaint of worsening shortness of breath for several days. He reported a feeling of fluid in his body and lungs and reported a burning substernal and midsternal chest pain. He did speak with his capability lead who recommended that he double up on the torsemide, but reported that it had little effect. He denied any increased salt in his diet and any weight gain. He was admitted under observation. There was concern for acute coronary syndrome as well as a PE. The patient had repeat troponins and had multiple negative troponins as well as no significant ST changes to indicate ischemia on his EKGs. He was started on Lasix 60 mg b.i.d. IV and responded well to this. The following day, he reported improvement in his breathing and abdominal fullness and denied any further complaints of burning or chest discomfort. Due to being the weekend, we are unable to obtain a V/Q scan as the patient was unable to undergo a CTA due to his renal function. However, the patient has low suspicion for PE as he does not complain of any pleuritic chest pain. He has not exhibited any tachypnea or tachycardia and denies any recent leg pain. His D-dimer was mildly elevated at 370 and the patient was initially started on a heparin drip. However, with improvement of symptoms from diuresis, it is unlikely that he has a PE and we did not pursue any further lung scans. We did attempt a stress test on 08/18/16. However, the patient had significant orthopnea while trying to lie on the nuclear medicine table and was brought back up with significant wheezing. He was given nebulizer treatment, but still had overt wheezing that did improve with a dose of prednisone. Given these findings, it was felt that the patient most likely has a mild COPD exacerbation superimposed on his CHF. These have both responded to the treatments here in the hospital. I did have a discussion with the patient and his son regarding the patient's diet. The patient does think that he does try to adhere to a low sodium diet. He reports that he has cut out meat because he does use a lot of salt with that. He denies any further processed foods such as potato chips. He does admit to salting his food while he is cooking and states that he does like to salt his meat, but he does try to watch the amount of this. He denies eating prepared foods or canned foods on a regular basis. Education was provided on hidden sources of sodium, and the patient was advised to pay closer attention to what he eats and to note when he starts having weight gain, to correlate that with potential food sources as that may be precipitating these events. The patient verbalized understanding. With the diuresis, the patient has had a 4-pound weight loss here in the hospital and has demonstrated significant improvement in his symptoms and respiratory status. I did call [facility] Cardiology to arrange for followup with them and the patient will follow up with his primary care provider as well. The patient was advised to continue with his daily weights and to keep track of this. He is aware that if his symptoms start to recur, that he could try to double up on his torsemide. If this does not work, then he will need to contact his PCP or capability lead and seek further attention. Due to the patient' s respiratory status, we did not finish his stress test here but as he is ruled out via his troponins and EKGs, we discussed that he could have this as an outpatient at the discretion of his outpatient providers. He is in agreement with this. Also note, the patient was started on Polytrim eye drops to the left eye, which was injected with yellow discharge. His eye has improved with these drops and the patient is instructed to continue this for an additional 3 to 4 days. CONCERNS AT DISCHARGE: Mr. Chen will be discharged to home on 08/19/16 with a plan to follow up with his PCP, Dr. Mcdermott, on 08/22/16. The cardiology group of [facility] will call the patient with a followup appointment. DIET: Heart healthy, low sodium diet. ACTIVITY: As tolerated. CONDITION: Stable. DISPOSITION: To home. TIME SPENT: Time spent on this discharge is approximately 45 minutes. Again, this is only a brief summary of the patient's hospital course of stay. For full details, please refer to the full medical record. If you have any further questions or need further assistance, please feel free to contact me at . LIBAN SOSA NP CC: Dr. Mcdermott* [id number]/[facility] #: [id number] MTDD
--- NOTE | 2016-08-21 08:10 | RAD ---
INDICATION: Chest pain COMPARISON: Chest x-ray dated August 18, 2016 TECHNIQUE: SPECT imaging was performed. Rest images were acquired following the intravenous injection of 10.91 millicuries of technetium 99m tetrofosmin at 1016 hours. At the onset of stress test acquisition the patient began having wheezing and other respiratory issues and the stress portion of the examination was canceled. FINDINGS: Evaluation is greatly limited in the absence of stress imaging. On the rest images there is uptake defect along the lateral wall of the ventricle. IMPRESSION: Limited examination due to absence of stress test imaging. On the rest imaging there is uptake defect involving the lateral ventricular wall which could represent a fixed defect or "hibernating myocardium". ASSESSMENT: Indeterminate. (Not "intermediate")
== END 2016-08-19 10:50 | disposition home or self-care (01) ==
LOC: ED 21:39 → MEDTELE 08-17 02:06
PROVIDERS: ADMIT Internal Medicine; ATTEND Hospitalist
DX: I11.0 Hypertensive heart disease with heart failure (principal); I50.33 Acute on chronic diastolic (congestive) heart failure; J44.1 Chronic obstructive pulmonary disease with (acute) exacerbation; I25.119 Atherosclerotic heart disease of native coronary artery with unspecified angina pectoris; Z95.1 Presence of aortocoronary bypass graft; I25.2 Old myocardial infarction; E11.9 Type 2 diabetes mellitus without complications; Z79.84 Long term (current) use of oral hypoglycemic drugs; E78.5 Hyperlipidemia, unspecified; Z85.51 Personal history of malignant neoplasm of bladder; I73.9 Peripheral vascular disease, unspecified; Z79.02 Long term (current) use of antithrombotics/antiplatelets; F17.210 Nicotine dependence, cigarettes, uncomplicated; H10.9 Unspecified conjunctivitis; M79.605 Pain in left leg; M79.604 Pain in right leg
CPT/HCPCS: 36415; 71010; 78451; 80048; 80053; 83605; 83690; 83880; 84484; 84520; 85025; 85379; 85610; 85730; 86140; 93005; 93306; 94640; 94760; 96365; 96375; 99285; A9270-GY; A9502; G0378; J1940; J7512

== ENCOUNTER 2016-09-01 18:06 | Emergency (ER) | payer MEDICARE ==
--- NOTE | 2016-09-01 20:23 | ED ---
Shahrzad Ingram [place], scribed for Yasir Hernandez MD on 09/01/16 at 2018 . Shortness of Breath - HPI Summary HPI Summary: Patient 66 y/o male who presents to the ED with dyspnea and dizziness since this afternoon. He states he has been experiencing pressure in his abd for 2 months and was prescribed a new diuretic earlier today. Pt reports a syncope episode for the first-time [employer]. He also states his shoulders feel heavy and he has had diarrhea all weekend. Pt lives alone and is concerned about returning home with sx. PMHx significant for COPD. - History of Current Complaint Chief Complaint: EDShortnessOfBreath Time Seen by Provider: 09/01/16 19:58 Hx Obtained From: Patient Onset/Duration: Gradual Onset, Lasting Hours Timing: Constant Current Severity: Moderate Aggrevating Factors: Nothing Alleviating Factors: Nothing - Allergy/Home Medications Allergies/Adverse Reactions: Allergies Allergy/AdvReac Type Severity Reaction Status Date / Time Bee Venom Allergy Severe Swelling Verified 09/01/16 20:35 Of Face,Lips,& Throat Cat Hair Extract Allergy Intermediate Wheezing Verified 09/01/16 20:35 Lisinopril Allergy Swelling Verified 09/01/16 20:35 Of Face,Lips,& Throat Home Medications: Home Medications Metolazone TAB* [Zaroxolyn TAB*] 5 mg PO DAILY 09/01/16 [History Confirmed 09/01] PMH/Surg Hx/FS Hx/Imm Hx Endocrine/Hematology History: Reports: Hx Anticoagulant Therapy, Hx Diabetes Denies: Hx Thyroid Disease, Hx Anemia, Hx Unexplained Bleeding Cardiovascular History: Reports: Hx Angina, Hx Angioplasty, Hx Coronary Artery Disease - STENT, Hx Embolism, Hx Hypercholesterolemia, Hx Hypertension - CONTROLLED WITH MEDS, Hx Peripheral Vascular Disease, Other Cardiovascular Problems/Disorders - Fem pop bypass Denies: Hx Aneurysm, Hx Auto Implanted Cardiovert Defib, Hx Cardiac Arrest, Hx Congestive Heart Failure, Hx Myocardial Infarction, Hx Pacemaker/ICD, Hx Valvular Heart Disease Respiratory History: Reports: Hx Chronic Obstructive Pulmonary Disease (COPD), Hx Pneumonia, Other Respiratory Problems/Disorders - possible sleep apnea, "wakes up a lot" Denies: Hx Asthma GI History: Reports: Hx Diverticulosis, Hx Gastroesophageal Reflux Disease - ON DAILY MEDS, Other GI Disorders - inguinal hernia Denies: Hx Cirrhosis, Hx Crohn's Disease, Hx Gall Bladder Disease, Hx Gastrointestinal Bleed, Hx Hiatal Hernia, Hx Irritable Bowel, Hx Jaundice, Hx Obstructive Bowel, Hx Ileostomy, Hx Pyloric Stenosis, Hx Ulcer History: Reports: Hx Benign Prostatic Hyperplasia, Hx Kidney Stones - 1 SMALL , 2006, NOT MOVED, Other Problems/Disorders Denies: Hx Renal Disease Musculoskeletal History: Reports: Hx Arthritis, Hx Back Problems, Hx Scoliosis, Other Musculoskeletal History - arthritis back Sensory History: Reports: Hx Contacts or Glasses Denies: Hx Cataracts, Hx Eye Injury, Hx Eye Prosthesis, Hx Glaucoma, Hx Legally Blind, Hx Macular Degeneration, Hx Vision Problem, Hx Deafness, Hx Hearing Aid, Hx Hearing Problem, Other Sensory Impairments Opthamlomology History: Reports: Hx Contacts or Glasses Denies: Hx Cataracts, Hx Eye Injury, Hx Eye Prosthesis, Hx Glaucoma, Hx Legally Blind, Hx Macular Degeneration, Hx Vision Problem, Other Sensory Impairments Neurological History: Reports: Hx Nerve Disease Denies: Hx Dementia, Hx Developmental Delay, Hx Headaches, Hx Migraine, Hx Seizures, Hx Spinal Cord Injury, Hx Transient Ischemic Attacks (TIA) Psychiatric History: Denies: Hx Panic Disorder, Hx Substance Abuse - Cancer History Cancer Type, Location and Year: BLADDER Hx Chemotherapy: Yes - CHEMICAL Hx Radiation Therapy: No - Surgical History Surgery Procedure, Year, and Place: 2011 & 2012 BLADDER [place] [facility] [place] LUMBAR SURGERY [facility]. 2005 RIGHT INDEX FINGER REATTACHED [facility] [place] , 2007 CARDIAC STENT [facility]. 2012 left carotid endarterectomy [facility] [place]. 2013 septoplasty [facility] [place]. 08/2013 LT FEMERAL BYPASS [facility] Anesthesia Reactions: No Infectious Disease History: No Infectious Disease History: Denies: Hx Clostridium Difficile, Hx Hepatitis, Hx Human Immunodeficiency Virus (HIV), Hx of Known/Suspected MRSA, Hx Shingles, Hx Tuberculosis, Hx Known/ Suspected VRE, Hx Known/Suspected VRSA, History Other Infectious Disease, Traveled Outside the in Last 30 Days - Family History Known Family History: Positive: Cardiac Disease - Social History Alcohol Use: Occasionally Alcohol Amount: FEW DRINKS/ WEEK Hx Substance Use: No Substance Use Type: Reports: None Hx Tobacco Use: Yes Smoking Status (MU): Heavy Every Day Tobacco Smoker Type: Cigarettes Amount Used/How Often: 2packs per day Have You Smoked in the Last Year: Yes Review of Systems Negative: Fever Positive: Shortness Of Breath Positive: Abdominal Pain - Pressure. , Diarrhea Positive: Other - Shoulders feel heavy. Neurological: Other - Dizziness. Positive: Syncope All Other Systems Reviewed And Are Negative: Yes Physical Exam Triage Information Reviewed: Yes Vital Signs On Initial Exam: Initial Vitals Temp Pulse Resp BP Pulse Ox 97.4 F 81 20 133/62 96 09/01/16 18:09 09/01/16 18:09 09/01/16 18:09 09/01/16 18:09 09/01/16 18:09 Vital Signs Reviewed: Yes Appearance: Positive: Well-Appearing, No Pain Distress Skin: Positive: Warm Head/Face: Positive: Normal Head/Face Inspection Eyes: Positive: STEPHANIE ENT: Positive: Hearing grossly normal Neck: Positive: Supple, Nontender Respiratory/Lung Sounds: Positive: Clear to Auscultation, Breath Sounds Present Cardiovascular: Positive: RRR Abdomen Description: Positive: Nontender, Soft Bowel Sounds: Positive: Present Musculoskeletal: Positive: Strength/ROM Intact Neurological: Positive: Sensory/Motor Intact, Alert, Oriented to Person Place, Time, Normal Gait Psychiatric: Positive: Affect/Mood Appropriate Diagnostics - Vital Signs Vital Signs Temp Pulse Resp BP Pulse Ox 09/01/16 20:00 76 32 126/82 92 09/01/16 19:49 81 20 93 09/01/16 19:48 113/68 09/01/16 18:09 97.4 F 81 20 133/62 96 - Laboratory Result Diagrams: 09/01/16 20:20 09/01/16 20:20 Lab Statement: Any lab studies that have been ordered have been reviewed, and results considered in the medical decision making process. - Radiology CXR Radiology Interpretation Completed By: Radiologist - IMPRESSION: Stigmata of chronic obstructive pulmonary disease corresponding with provided history. No acute cardiopulmonary process evident. - CT ABD/PELVIS CT Interpretation Completed By: Radiologist - IMPRESSION: 1. Potential nonspecific mural thickening of the stomach with incomplete distention limiting assessment. Gastritis or infiltrative tumor is not excluded. Correlate with clinical assessment and consider upper GI series or endoscopy for further assessment. 2. Mild to moderate colonic diverticulosis without findings of diverticulitis. 3. Fat-containing ventral and inguinal hernias without inflammatory change. 4. Negative for obstructive uropathy. 5. 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 - EKG 1814 EKG Interpretation: Sinus @ 79 bpm. Incomplete RBBB. Re-Evaluation - Re-Evaluation First Eval Change: Improved - reults d/w pt Course/Dx - Course Course Of Treatment: 66 y/o male presents with SOB and s/p syncope. He reports dizziness, abdominal pressure, and diarrhea. CXR reveals stigmata of chronic obstructive pulmonary disease corresponding with provided. history. No acute cardiopulmonary process evident. EKG reveals sinus @ 79 bpm and an incomplete RBBB. CT reveals1. Potential nonspecific mural thickening of the stomach with incomplete distention limiting assessment. Gastritis or infiltrative tumor is not excluded. Correlate with clinical assessment and consider upper GI series or endoscopy for further assessment. 2. Mild to moderate colonic diverticulosis without findings of diverticulitis. 3. Fat-containing ventral and inguinal hernias without inflammatory change. 4. Negative for obstructive uropathy. 5. 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 Pt is stable and will be DC'd. - Diagnoses Provider Diagnoses: Chest pain, Abdominal pain Discharge - Discharge Plan Condition: Improved Disposition: HOME Patient Education Materials: Chest Pain (ED), Abdominal Pain (ED) Referrals: Soo Mcdermott MD [Primary Care Provider] - Additional Instructions: Follow up with PCP. The documentation as recorded by the Shahrzad howard Salem accurately reflects the service I personally performed and the decisions made by , Yasir Hernandez MD.
[2016-09-01 20:34] LABS: Urine Bacteria Absent (Absent); Urine Bilirubin Negative (Negative); Urine Glucose Negative (Negative); Urine Nitrite Negative (Negative)
[2016-09-01 20:41] LABS: Hematocrit 49 % (42-52); Hemoglobin 16.5 g/dl (14.0-18.0); Mean Corpuscular HGB Conc 34 g/dl (31-36); Mean Corpuscular Hemoglobin 29 pg (27-31); Mean Corpuscular Volume 87 fL (80-94); Red Cell Distribution Width 16 % (10.5-15)
[2016-09-01 20:45] LABS: Comments Flag Yes
[2016-09-01 20:46] LABS: Add Diff/Slide Review? Manual Diff Added
--- NOTE | 2016-09-01 20:46 | RAD ---
INDICATION: Chest pain, dizziness, unsteady on feet. Cardiac disease and chronic obstructive pulmonary disease. COMPARISON: December 05, 2013 CT and August 18, 2016 chest radiograph. TECHNIQUE: Dual energy PA and routine lateral views of the chest were obtained. REPORT: Elevated lung volumes. Minimal prominence of the interstitial markings without change. No alveolar consolidation focal pulmonary lesion, pleural effusion, pneumothorax. The heart, pulmonary vasculature, and mediastinal contours are unremarkable. IMPRESSION: Stigmata of chronic obstructive pulmonary disease corresponding with provided history. No acute cardiopulmonary process evident.
[2016-09-01 20:53] LABS: BUN/Creatinine Ratio 13.1 (8-20); C Reactive Protein 21.26 mg/L (< 5.00); Calcium 9.3 mg/dL (8.6-10.3); EGFR African American 50.2 (>60); EGFR Non-African American 39.1 (>60); Globulin 3.1 g/dL (2-4); Total Bilirubin 0.4 mg/dL (0.2-1.0); Total Protein 7.1 g/dL (6.4-8.9)
[2016-09-01 20:54] LABS: Troponin I 0.01 ng/mL (<0.04)
[2016-09-01 21:36] LABS: Magnesium 2.4 mg/dL (1.9-2.7); Potassium 4.1 mmol/L (3.5-5.0)
[2016-09-01 21:47] LABS: Red Blood Count 5.67 10^6/ul (4.0-5.4)
[2016-09-01 21:52] LABS: Neutrophil % 79 % (38-83)
[2016-09-01 21:58] LABS: White Blood Count 14.5 10^3/ul (3.5-10.8)
--- NOTE | 2016-09-01 22:56 | RAD ---
INDICATION: Abdominal pain, hematuria. Chest pain, syncope. COMPARISON: August 2016 chest radiograph and November 26, 2013 CT. TECHNIQUE: Multidetector CT images were obtained from the lung bases to the ischial tuberosities. Evaluation of the viscera is limited without IV contrast. Multiplanar reformation. REPORT: Mild pleural parenchymal scarring at the inferior lingula. 0.6 cm hypodense lesion at the junction of the LEFT medial and RIGHT anterior hepatic segments is unchanged compared with the 2014 exam without concern. Negative for suspicious hepatic lesions. No CT abnormality of the gallbladder, pancreas, spleen. Small splenule approximates the caudal margin of the spleen. While incomplete distention limits assessment there is suggestion of mural thickening at the gastric body and antrum. Negative for CT abnormality of the small bowel loops, medially extending appendix. Mild to moderate colonic diverticulosis greatest at the sigmoid colon without findings of diverticulitis. Negative for ascites or free air. 3.8 cm AP by 10.5 cm transverse by 4.5 cm cephalocaudal fat-containing supraumbilical ventral hernia exits through a 4.9 cm transverse by 2.5 cm cephalocaudal fascia defect without inflammatory change. Small bilateral fat-containing direct appearing inguinal hernias without inflammatory change. Normal adrenal glands. Vascular appearing calcification at the midpole of the RIGHT kidney. No urolithiasis or hydronephrosis evident. 4 cm exophytic cortical cyst posterior upper pole RIGHT kidney. No suspicious focal renal lesions. Unremarkable nondilated ureters. Unremarkable partially distended urinary bladder as well as the prostate and seminal vesicles. Normal diameter abdominal aorta and iliac arteries with atherosclerotic plaque. Physiologic distention of the IVC. Negative for lymphadenopathy. Multilevel advanced lumbar sacral spine degenerative spondylosis and facet joint osteoarthritis. Associated vacuum disc phenomenon at multiple levels. Transitional vertebrae at the lumbosacral junction with degenerative arthropathy at the LEFT lowest segment articulation with the sacral ala. Dysplastic RIGHT hip with advanced degenerative arthropathy with significant subchondral sclerosis and cystic change and partial flattening of the articular surfaces with significant progression compared with the 2014 exam. Associated RIGHT hip joint effusion. Negative for fracture. IMPRESSION: 1. Potential nonspecific mural thickening of the stomach with incomplete distention limiting assessment. Gastritis or infiltrative tumor is not excluded. Correlate with clinical assessment and consider upper GI series or endoscopy for further assessment. 2. Mild to moderate colonic diverticulosis without findings of diverticulitis. 3. Fat-containing ventral and inguinal hernias without inflammatory change. 4. Negative for obstructive uropathy. 5. 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
[2016-09-01 23:29] VITALS: BP 123/78
== END 2016-09-01 23:27 | disposition home or self-care (01) ==
LOC: ED 18:06
DX: R07.9 Chest pain, unspecified (principal); R10.9 Unspecified abdominal pain; R06.02 Shortness of breath; R55 Syncope and collapse; R42 Dizziness and giddiness; R19.7 Diarrhea, unspecified; F17.210 Nicotine dependence, cigarettes, uncomplicated
CPT/HCPCS: 36415; 71020; 74176; 80053; 81003; 81015; 83605; 83690; 83735; 83880; 84484; 85025; 85379; 85610; 86140; 93005; 99283

== ENCOUNTER 2016-10-22 07:00 | Day surgery (SDC) | payer MEDICARE ==
--- NOTE | 2016-10-15 21:20 | HP ---
ADMITTING HISTORY AND PHYSICAL: DATE OF ADMISSION/OPERATION: 10/22/16 AGE: 66 years, male. ADMITTING DIAGNOSES: 1. Bladder cancer. 2. Hematuria. PLANNED PROCEDURE: Transurethral resection of multiple bladder tumors and bilateral retrograde. SURGEON: Dr. Ortiz. HISTORY: Dima Chen is a 66-year-old chronic smoker with a history of recurrent superficial bladder cancer. He recently underwent a cystoscopy and was noted to have multiple recurrent bladder tumors. PAST MEDICAL HISTORY: Fairly extensive and includes: 1. History of obstructive sleep apnea. 2. COPD. 3. Spinal stenosis. 4. Chronic tobacco use. 5. Hyperlipidemia. 6. Hypertension. 7. Coronary arteriosclerosis. 8. Peripheral vascular disease. MEDICATIONS: On admission: 1. Carvedilol 12.5 mg in the morning and 6.25 in the evening. 2. Torsemide 40 mg daily. 3. Plavix 75 mg, currently on hold. 4. Flomax 0.4 mg daily. 5. Prilosec 20 mg daily. 6. Gabapentin 600 mg b.i.d. 7. Aspirin 81 mg a day. 8. Lipitor 80 mg a day. 9. Amiodarone 200 mg daily. 10. Albuterol 4 times a day. 11. Januvia 25 mg daily. ALLERGIES AND INTOLERANCES: LISINOPRIL. PHYSICAL EXAMINATION GENERAL: A pleasant middle-aged gentleman. VITAL SIGNS: Blood pressure is 132/80, pulse 61 per minute, oxygen saturation 93% on room air. LUNGS: Clear bilaterally. CARDIOVASCULAR: Regular rate and rhythm. S1, S2. ABDOMEN: Soft without masses. IMPRESSION: A 66-year-old chronic smoker with recurrent bladder cancer. Planned procedure is transurethral resection of bladder tumors and bilateral retrograde. CC: Dr. Delacruz; Dr. Mcdermott; Dr. Ortiz * [id number]/[facility] #: [id number] [facility]
[~2016-10-22 07:00] MED LIST: Famotidine IV* 10 MG/ML 2 ML (20 mg) IV ONE; Metoclopramide IV* 5 MG/ML 2 ML VIAL IV SLOW PU ONE
[2016-10-22] MEDS ORDERED: Metoclopramide IV* 5 MG/ML 2 ML VIAL ONE (07:03)
[2016-10-22] MEDS ORDERED: Buffered Lidocaine 1% SYRIN* 5 ML/SYR SYRINGE ONE (07:04)
[2016-10-22] MEDS ORDERED: cefTRIAXone(*) 2 GM ADDV.VIAL IVPB ONE (07:04)
[2016-10-22] MEDS ORDERED: Famotidine IV* 10 MG/ML 2 ML (20 mg) ONE (07:04)
[2016-10-22] MEDS ORDERED: Iohexol 180 (CONTRAST) 10 ML SDV IV ONE (09:09)
[2016-10-22] MEDS ORDERED: KETAMINE HCL* 50 MG/ML 10 ML VIAL ONE (09:20)
[2016-10-22] MEDS ORDERED: Midazolam* 1 MG/ML 2 ML VIAL (2 MG) ONE (09:20)
[2016-10-22] MEDS ORDERED: fentaNYL* 50 MCG/ML 2 ML VIAL (100 MCG VIAL) ONE ×2 (09:20→10:54)
[2016-10-22] MEDS ORDERED: Lidocaine 1% INJ* 10 MG/ML 30 ML SDV ONE (09:24)
[2016-10-22] MEDS ORDERED: Phenylephrine IV* 40 MCG/ML 10 ML SYRINGE ONE (09:46)
[2016-10-22] MEDS ORDERED: Furosemide IV* 10 MG/ML 2 ML VIAL (20 MG) ONE (09:52)
[2016-10-22] MEDS ORDERED: Ondansetron INJ* 2 MG/ML VIAL ONE (10:22)
[2016-10-22] MEDS ORDERED: fentaNYL* 50 MCG/ML 2 ML VIAL (100 MCG VIAL) IV PRN (10:36)
[2016-10-22] MEDS ORDERED: DiMENhydriNATE IV* 50 MG/ML VIAL IV PUSH PRN (10:36)
--- NOTE | 2016-10-22 10:36 | RAD ---
INDICATION: Bladder tumor TURB; cystoscopy and bilateral retrograde pyelograms. COMPARISON: October 07, 2016 PET/CT. TECHNIQUE: 11 seconds fluoroscopy. FINDINGS: Bilateral retrograde pyelograms are negative for ureteral dilatation or pelvicaliectasis. No visualized uroepithelial lesions on the provided spot images. IMPRESSION: Procedural fluoroscopy. CPT II Codes: 6045F
[2016-10-22] MEDS ORDERED: Lidocaine 2% JELLY* 6 ML JELLY TOPICAL ONE (11:07)
[2016-10-22] MEDS ORDERED: oxyCODONE/Acetamin 5/325 MG* TAB ONE (11:12)
[2016-10-22] MEDS ORDERED: mitoMYcin PWD* 40 MG in Sterile Water for Inj* 40 ML IRRIGATION ONE (12:00)
[2016-10-22 13:06] VITALS: BP 137/84
--- NOTE | 2016-10-23 02:32 | OP ---
OPERATIVE SUMMARY: DATE OF OPERATION: 10/22/16 - SDS DATE OF : [birth year] AGE: 66 years, male. SURGEON: Hayden Ortiz MD ANESTHESIOLOGIST: Dr. Cavanaugh. ANESTHESIA: General. PRE-OP DIAGNOSIS: Bladder tumors. POST-OP DIAGNOSIS: Bladder tumors. OPERATIVE PROCEDURE: Cystoscopy, transurethral resection and fulguration of bladder tumors (aggregate 5 cm to 6 cm), bilateral retrograde pyelograms. INDICATIONS: Dima Chen Junior is a 66-year-old chronic smoker with a history of recurrent superficial bladder cancer. COMPLICATIONS: None. BLOOD LOSS: Less than 50 cc. OPERATIVE FINDINGS: 1. A large area of posterior bladder wall with thickened hyperemic mucosa, suspicious for carcinoma in situ. 2. Lesion, right lateral wall of bladder just inside bladder neck with an atypical appearance with a solid polypoid lesion (questionable TCC versus benign tissue). 3. Normal bilateral retrograde pyelograms. POSTOPERATIVE CONDITION: Stable. DESCRIPTION OF PROCEDURE: After induction of general anesthesia, the patient was placed in dorsal lithotomy position. Sequential compression devices were in place and functioning. Initial cystoscopy revealed a normal-appearing urethra, a mildly enlarged prostate. The bladder was examined. The right and left ureteral orifices were normal in position and configuration with clear efflux noted. Bilateral retrograde pyelograms were performed. There was no evidence of any filling defects or obstruction noted on either side. Good drainage was noted following removal of the open-ended catheters bilaterally. Next, attention was directed to the bladder lesions. There was a large area of thickened raised hyperemic mucosa in the posterior bladder wall suspicious for carcinoma in situ. Using the biopsy forceps, complete excision biopsy was carried out of this area and the specimen was sent for histopathology. There was an area inside the bladder neck on the right side and the right lateral wall where there was a solid polypoid lesion protruding into the lumen of the bladder. This had a somewhat atypical appearance for neoplasm and using the resectoscope, it was completely resected down to muscle. Again, this was sent for histopathology. Hemostasis was secured with a coagulating current. There was no evidence of bladder perforation and a 20-Gibraltarian Freire was placed at the end of the procedure. The patient tolerated the procedure satisfactorily and was transferred back to the recovery area in stable condition. CC: Dr. Mcdermott; Hayden Ortiz MD* [id number]/[facility] #: [id number] BRY
== END 2016-10-22 13:33 | disposition home or self-care (01) ==
LOC: OR 07:00
PROVIDERS: ATTEND Urology
DX: C67.8 Malignant neoplasm of overlapping sites of bladder (principal); G47.33 Obstructive sleep apnea (adult) (pediatric); J44.9 Chronic obstructive pulmonary disease, unspecified; M48.00 Spinal stenosis, site unspecified; F17.210 Nicotine dependence, cigarettes, uncomplicated; E78.5 Hyperlipidemia, unspecified; I10 Essential (primary) hypertension; I25.10 Atherosclerotic heart disease of native coronary artery without angina pectoris; I73.9 Peripheral vascular disease, unspecified; Z68.34 Body mass index [BMI] 34.0-34.9, adult; Z79.01 Long term (current) use of anticoagulants
CPT/HCPCS: 36415; 74420; 85730; 88305; A9270-GY; J0696; J1940; J2001; J2250; J2405; J3010; J9280

== ENCOUNTER 2016-11-26 07:29 | Day surgery (SDC) | payer MEDICARE ==
--- NOTE | 2016-11-17 19:39 | HP ---
CC: Dr. Mcdermott; Dr. Delacruz; Dr. Solano * ADMITTING HISTORY AND PHYSICAL: DATE OF ADMISSION: 11/26/16 ADMITTING DIAGNOSES: 1. Hematuria. 2. Bladder cancer. PLANNED PROCEDURE: Cystoscopy, transurethral resection of bladder tumor (second - look procedure). SURGEON: Hayden Ortiz MD HISTORY OF PRESENT ILLNESS: Dima Chen Jr. is a 66-year-old smoker with a history of bladder cancer. He had undergone transurethral resection of bladder tumor on October 22. 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 There was invasion into the lamina propria, but there were no muscularis propria bundles in the specimen, an extensive squamous differentiation was noted. Because of the findings of high-grade superficially invasive bladder cancer, he is now being brought in for transurethral resection second-look procedure in an effort to rule out any muscle invasive cancer. PAST MEDICAL HISTORY: Significant for: 1. COPD. 2. Spinal stenosis. 3. Sleep apnea. 4. Hyperlipidemia. 5. Chronic tobacco use. 6. History of coronary artery disease. 7. Peripheral vascular disease. MEDICATIONS: 1. Januvia 25 mg daily. 2. Carvedilol 12.5 mg q.a.m., 6.25 mg q.p.m. 3. Plavix 75 mg a day. 4. Torsemide 40 mg daily. 5. Prilosec 20 mg daily. 6. Flomax 0.4 mg a day. 7. Gabapentin 600 mg b.i.d. 8. Lipitor 80 mg a day. 9. Aspirin 81 mg a day. 10. Albuterol 4 times daily. 11. Amiodarone 200 mg once a day. ALLERGIES: LISINOPRIL. PHYSICAL EXAMINATION GENERAL: A pleasant, middle-aged, overweight gentleman. VITAL SIGNS: Blood pressure 150/84, temperature 97.8, pulse 70 per minute, oxygen saturation 93% on room air. LUNGS: Clear bilaterally. CARDIOVASCULAR: Regular rate and rhythm. S1, S2. ABDOMEN: Soft, obese without masses. IMPRESSION: A 66-year-old chronic smoker with superficially invasive bladder cancer. PLAN: Transurethral resection of bladder tumor, second-look procedure, to rule out any muscle invasive cancer. [id number]/[facility] #: [id number] [facility]
[~2016-11-26 07:29] MED LIST changes: +Buffered Lidocaine 0.9% SYRIN* 5 ML/SYR SYRINGE INTRADERM ONE; +Buffered Lidocaine 0.9% SYRIN* 5 ML/SYR SYRINGE ONE; +Famotidine IV* 10 MG/ML 2 ML (20 mg) ONE; -Metoclopramide IV* 5 MG/ML 2 ML VIAL IV SLOW PU ONE; +cefTRIAXone(*) 2 GM ADDV.VIAL IVPB ONE
[2016-11-26] MEDS ORDERED: fentaNYL* 50 MCG/ML 2 ML VIAL (100 MCG VIAL) ONE (07:41)
[2016-11-26] MEDS ORDERED: Midazolam* 1 MG/ML 5 ML VIAL (5 MG) ONE (07:41)
[2016-11-26] MEDS ORDERED: oxyCODONE/Acetamin 5/325 MG* TAB PO PRN (07:49)
[2016-11-26] MEDS ORDERED: HYDROmorphone* 1 MG/ML 1 ML SYR IV PRN (07:49)
[2016-11-26] MEDS ORDERED: DiMENhydriNATE IV* 50 MG/ML VIAL IV PUSH PRN (07:49)
[2016-11-26] MEDS ORDERED: Ondansetron INJ* 2 MG/ML VIAL ONE (09:47)
[2016-11-26] MEDS ORDERED: Dexamethasone IV* 4 MG/ML 1 ML (4 MG) ONE (09:47)
[2016-11-26] MEDS ORDERED: Lidocaine 2% PF * 5 ML VIAL ONE (09:47)
[2016-11-26] MEDS ORDERED: Propofol* 10 MG/ML 20 ML BTL IV PUSH ONE (09:47)
[2016-11-26] MEDS ORDERED: Furosemide IV* 10 MG/ML 2 ML VIAL (20 MG) ONE (10:02)
[2016-11-26] MEDS ORDERED: EPHEDrine (Pressors)* 50 MG/ML VIAL ONE (10:03)
[2016-11-26] MEDS ORDERED: mitoMYcin PWD* 40 MG in Sterile Water for Inj* 40 ML IRRIGATION ONE (11:30)
[2016-11-26 13:19] VITALS: BP 127/78
[2016-11-26] MEDS ORDERED: Albuterol 2.5 MG/3 ML NEB.SOL* (0.083%) ONE (13:23)
--- NOTE | 2016-11-27 07:25 | OP ---
CC: Soo Mcdermott MD; Fanta Solano MD * DATE OF OPERATION: 11/26/16 DATE OF : [birth year] - AGE/SEX: 66 years, male SURGEON: Hayden Ortiz MD. ANESTHESIOLOGIST: Dr. Berry. ANESTHESIA: General. PRE-OP DIAGNOSIS: Bladder cancer. POST-OP DIAGNOSIS: Bladder cancer. OPERATIVE PROCEDURE: 1. Cystoscopy. 2. Transurethral resection and fulguration of bladder tumor (3 to 4 cm) aggregate. COMPLICATIONS: None. POSTOPERATIVE CONDITION: Stable. INDICATIONS: Dima Chen Jr. is a 66-year-old chronic smoker with a history of recurrent bladder cancer. He had undergone transurethral resection and has now been brought in for second-look procedure to rule out any muscle invasive cancer. DESCRIPTION OF PROCEDURE: After induction of general anesthesia, the patient was placed in dorsal lithotomy position. Sequential compression devices were in place and functioning. Initial cystoscopy revealed a normal-appearing urethra and moderately enlarged prostate. The bladder was examined. There were reactive changes noted at the site of previous tumor resection. In the area of the right lateral wall, there were couple of areas, which may represent residual tumor and using a resectoscope these were resected down to muscle and sent for histopathology. There was a small area on the left side of the bladder neck which may also represent residual tumor and this was also resected and sent for histopathology. The rest of the bladder looked unremarkable except for the reactive changes from prior resection as described above. At the end of the procedure, clear urine was seen effluxing from both right and left ureteral orifices and there was no evidence of bladder perforation. Hemostasis appeared satisfactory. A 20-Andorran Freire was placed for temporary bladder drainage. The patient tolerated the procedure satisfactorily and was transferred back to the recovery area in stable condition. [id number]/[facility] #: [id number] [facility]
== END 2016-11-26 14:30 | disposition home or self-care (01) ==
LOC: OR 07:29
PROVIDERS: ATTEND Urology
DX: C67.2 Malignant neoplasm of lateral wall of bladder (principal); C67.5 Malignant neoplasm of bladder neck; J44.9 Chronic obstructive pulmonary disease, unspecified; G47.33 Obstructive sleep apnea (adult) (pediatric); E78.5 Hyperlipidemia, unspecified; I25.5 Ischemic cardiomyopathy; Z79.02 Long term (current) use of antithrombotics/antiplatelets; Z86.73 Personal history of transient ischemic attack (TIA), and cerebral infarction without residual deficits; I48.0 Paroxysmal atrial fibrillation; Z95.5 Presence of coronary angioplasty implant and graft; I25.10 Atherosclerotic heart disease of native coronary artery without angina pectoris; E11.51 Type 2 diabetes mellitus with diabetic peripheral angiopathy without gangrene; Z79.84 Long term (current) use of oral hypoglycemic drugs; Z79.82 Long term (current) use of aspirin; Z88.8 Allergy status to other drugs, medicaments and biological substances; F17.200 Nicotine dependence, unspecified, uncomplicated
CPT/HCPCS: 36415; 86803; 88305; J0696; J1100; J1940; J2250; J2405; J2704; J3010; J9280

== ENCOUNTER 2016-12-25 07:54 | Day surgery (SDC) | payer MEDICARE ==
--- NOTE | 2016-12-11 20:02 | HP ---
CC: Dr. Soo Mcdermott; Dr. Delacruz; Dr. Solano * HISTORY AND PHYSICAL: DATE OF ADMISSION/SURGERY: 12/25/16 PATIENT OF: Dr. Yasir Calderon. (DICTATED BY YOVANNY RAY) CHIEF COMPLAINT: Mediastinal adenopathy. HISTORY OF PRESENT ILLNESS: Mr. Chen is a pleasant 66-year-old gentleman who was [facility] office a couple of weeks ago from Dr. Solano with mediastinal adenopathy. The patient has longstanding history of COPD with exacerbation as well as CHF for which he was recently admitted to the hospital back in July of this year. Apparently, the patient had multiple chest x-rays back then that revealed some suspicion for mediastinal adenopathy for which he went on and had a screening CT scan as well. The patient is considered a high risk given his long-term history of smoking and his CT scan showed findings consistent with mediastinal adenopathy as well. The patient was referred to Dr. Solano, and had a PET scan revealed hot lymph nodes in the mediastinal region that was unfortunately not amenable to endobronchial ultrasound biopsy; therefore, the patient was referred to our office to discuss the consideration of surgical biopsy. It is to be noted that patient had a recent diagnosis of bladder cancer back in late September of this year by Dr. Ortiz and he is currently being treated with BCG infusion in his office. The patient himself denies any recent respiratory symptoms. He denies any chest pain, hemoptysis, dyspnea at rest or wheezing. He has had very significant cardiac history and has been followed up by Dr. Delacruz. The patient has a recent echocardiogram back in September of this year that shows ejection fraction in the 45% range. Given the recent findings of the CT scan that revealed mediastinal adenopathy, we were asked to see the patient in consultation and to discuss surgical intervention. As mentioned above, the patient denies any chest pain at this time. 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 He denies any shortness of breath or dyspnea on exertion. PAST MEDICAL HISTORY: His past medical history is significant for hypertension, coronary artery disease that required stenting approximately 2 years ago. He also has history of hyperlipidemia, tobacco dependency, bladder cancer, congestive heart failure, and chronic obstructive pulmonary disease. Borderline diabetes mellitus. PAST SURGICAL HISTORY: Significant for TURP with cystoscopy and bladder tumor screening earlier this year and the patient is currently receiving BCG infusion to the bladder in Dr. Ortiz's office. He also has history of rhinoplasty and left carotid endarterectomy, lower back surgery, femoral popliteal revascularization on the left leg. He also has history of repair of right first finger fracture, carotid stenting with 3 stents placed 2 years ago at [facility]. CURRENT MEDICATIONS: His medications at home include: 1. Carvedilol 12.5 mg 1 tablet in the morning and 1 tablet in the evening. 2. Torsemide 20 mg 2 tablets as directed. 3. Plavix 75 mg once daily. 4. Nitrostat 0.4 mg sublingual 1 tablet every 5 minutes up to 3 doses as needed for chest pain. 5. Flomax 0.4 mg once daily. 6. Prilosec 20 mg once daily. 7. Gabapentin 200 mg 3 tablets b.i.d. 8. Aspirin 81 mg once daily. 9. Lipitor 80 mg once q.h.s. 10. Magnesium oxide 400 mg b.i.d. 11. Amiodarone 200 mg 1 tablet daily. 12. Ibuprofen 200 mg 4 tablets b.i.d. p.r.n. for aches and pains. 13. Albuterol sulfate nebulizer 2.5 mg 1 vial via nebulizer every 6 hours as needed for shortness of breath. 14. Januvia 50 mg 1 tablet every day. ALLERGIES: He is allergic to VASQUEZ INHIBITORS, including LISINOPRIL, as well as BEE STING, and CAT DANDER. FAMILY HISTORY: Significant for heart disease, pulmonary embolism, and lung cancer. SOCIAL HISTORY: The patient is single. He lives at home alone. He is currently working in business. He is a smoker, continues to smoke approximately 1 pack per day. He occasionally consumes alcohol and he denies any illicit drug use. REVIEW OF SYSTEMS: See HPI, otherwise negative. He denies any headache, syncope, blurred vision, or double vision. He admits to sore throat for which he has been evaluated, but denies any cervical adenopathy or dysphagia. No cough, shortness of breath, wheezing, or dyspnea at rest. He denies any hemoptysis, fever, chills, or recent weight loss. He admits to an abdominal hernia that he has had for years but denies any abdominal pain, nausea, vomiting , or changes in the bowel habits. No flank pain, hematuria, dysuria, or urinary frequency. He, as mentioned above, currently receiving BCG bladder infusion at Dr. Ortiz's office. PHYSICAL EXAMINATION GENERAL: He is a pleasant, obese, upper middle-age gentleman, in no acute distress or discomfort at the time of this visit. VITAL SIGNS: His vitals revealed a blood pressure of 138/78, pulse of 72, temperature of 98.2, respirations of 18. He is 240 pounds on 5-feet 10-inch frame with BMI of 34.5. HEENT: Sclerae anicteric. PERRLA. EOMs intact. Oropharynx is pink and moist. There is no exudate. NECK: Supple. Trachea midline. There is no cervical adenopathy or supraclavicular adenopathy noted. LUNGS: Breath sounds are normal bilaterally. There are moderate rales and rhonchi noted throughout all valladares on bilateral lungs. There is no wheezing noted. HEART: Regular rate and rhythm. Normal S1 and S2 without rubs, murmurs, or gallops. BACK: With normal curvature. No CVA tenderness. ABDOMEN: Soft, round, nontender, and nondistended. There is a moderate size supraumbilical ventral hernia noted on examination that was easily reducible and nontender. There are no other hernias or masses noted. No organomegaly noted as well. EXTREMITIES: Left lower extremity with 2+ pitting edema was noted. There is no edema noted on the right side. NEUROLOGIC: Grossly intact. STRUCTURAL EXAM: Deferred at this time. IMPRESSION: A 66-year-old gentleman with recent diagnosis of bladder carcinoma , who was found to have mediastinal adenopathy and now referred to surgical services for tissue biopsy. PLAN: The patient was seen by Dr. Calderon and again by myself today to discuss surgery. Given the fact that location of his mediastinal lymphadenopathy was unfortunately not amenable to endobronchial ultrasound biopsy, the patient will be considered for surgical biopsy. He was found to be a good candidate for anterior mediastinoscopy with biopsy of mediastinal lymph nodes, which is also known as [place] procedure. We went over and discussed the case with the patient including the CT scan. He does need the biopsy of the aortic-pulmonary lymph nodes, which some of them reached a size of 2.5 cm. The patient, as mentioned above, is a good candidate for an anterior mediastinoscopy and we discussed with him proceeding with surgery. The rationale, indications, risks, and benefits of the surgery were discussed with him today. Risks include but not limited to infection, bleeding or injury to the adjacent and major vessels. He understood the risks involved and he wishes to proceed as outlined. The patient is scheduled this week to see his primary care physician, Dr. Mcdermott , as well as another appointment with his regional transfer liaison next week with Dr. Delacruz to see if any additional workup preoperatively is needed. He is on both aspirin and Plavix given his significant cardiovascular history and coronary artery disease. We will discuss with Dr. Delacruz holding his Plavix and aspirin for 5 days prior to his surgery. We will also obtain preadmission testing and we will review his most recent echocardiogram as well as chest x- ray. He is electively scheduled for anterior mediastinoscopy on 12/25/[address] Calderon and we will follow him up accordingly. YOVANNY RAY [id number]/[facility] #: [id number] MTDFederico
[~2016-12-25 07:54] MED LIST changes: -Buffered Lidocaine 0.9% SYRIN* 5 ML/SYR SYRINGE ONE; +ceFAZolin 2 GM PREMIX(*) 2 GM/50 ML BAG IVPB ONE; -cefTRIAXone(*) 2 GM ADDV.VIAL IVPB ONE
[2016-12-25] MEDS ORDERED: fentaNYL* 50 MCG/ML 2 ML VIAL (100 MCG VIAL) ONE (08:07)
[2016-12-25] MEDS ORDERED: Ketorolac INJ* 30 MG/ML 1 ML VIAL ONE (08:07)
[2016-12-25] MEDS ORDERED: Propofol* 10 MG/ML 20 ML BTL IV PUSH ONE (08:07)
[2016-12-25] MEDS ORDERED: Lidocaine 2% PF * 5 ML VIAL ONE (08:07)
[2016-12-25] MEDS ORDERED: Dexamethasone IV* 4 MG/ML 1 ML (4 MG) ONE (08:07)
[2016-12-25] MEDS ORDERED: Ondansetron INJ* 2 MG/ML VIAL ONE (08:07)
[2016-12-25] MEDS ORDERED: Succinylcholine* 20 MG/ML 10 ML VIAL ONE (08:07)
[2016-12-25] MEDS ORDERED: Midazolam* 1 MG/ML 5 ML VIAL (5 MG) ONE (08:07)
[2016-12-25] MEDS ORDERED: Heparin VIAL(*) 5000 UNITS/ML VIAL (FIVE THOUSAND) ONE (08:44)
[2016-12-25] MEDS ORDERED: Rocuronium* 10 MG/ML VIAL ONE (09:05)
[2016-12-25] MEDS ORDERED: KETAMINE HCL* 50 MG/ML 10 ML VIAL ONE (09:30)
[2016-12-25] MEDS ORDERED: Bupivacaine 0.25% W/EPI* 50 ML VIAL ONE (09:31)
[2016-12-25] MEDS ORDERED: Levalbuterol 0.63MG/3ML NEB INH PRN (09:57)
[2016-12-25] MEDS ORDERED: Acetaminophen IV 1GM/100ML * 100 ML IVPB ONE (09:57)
[2016-12-25] MEDS ORDERED: oxyCODONE TAB* 5 MG TAB PO PRN (09:57)
[2016-12-25] MEDS ORDERED: DiMENhydriNATE IV* 50 MG/ML VIAL IV PUSH PRN (09:57)
[2016-12-25] MEDS ORDERED: HYDROmorphone* 1 MG/ML 1 ML SYR IV PRN (09:57)
[2016-12-25] MEDS ORDERED: HYDROmorphone* 1 MG/ML 1 ML SYR ONE (10:46)
[2016-12-25] MEDS ORDERED: Levalbuterol 1.25MG/0.5ML NEB ONE (11:35)
[2016-12-25] MEDS ORDERED: Acetaminophen IV 1GM/100ML * 100 ML ONE (12:10)
[2016-12-25 13:24] VITALS: BP 135/76
--- NOTE | 2016-12-26 05:12 | OP ---
CC: Dr. Solano; Dr. Delacruz; Dr. Mcdermott * DATE OF OPERATION: 12/25/16 - LOCATED WITHIN [facility] DATE OF : 52 SURGEON: Yasir Calderon MD OYSTER FISHERMAN: None. ANESTHESIOLOGIST: Dr. Berry. ANESTHESIA: General anesthetic, local infiltration. PRE-OP DIAGNOSIS: Mediastinal adenopathy. POST-OP DIAGNOSIS: Mediastinal adenopathy. OPERATIVE PROCEDURE: Anterior mediastinoscopy with lymph node biopsies. DESCRIPTION OF PROCEDURE: The patient was supine on the operating table. After adequate general anesthetic, compression stockings, Andreea Hugger warmer and intravenous antibiotics, the left chest was clipped and prepped with antiseptic, draped in a sterile fashion. Local infiltrative anesthesia was administered and approximately 5 cm incision was created. This was carried down to the third rib and approximately 4 cm segment of the rib was removed and the mediastinum was entered. The aortic arch was identified and appropriate plane into the mediastinum was identified, the pleura were swept laterally and was not harmed. Mediastinoscope was inserted and carried down in to the mediastinal plane and multiple biopsies of aortopulmonary lymph nodes were taken ; however the large lymph node that had been seen on the scan initially was not definitively identified. Multiple biopsies were taken from this region of the [place] of the aortopulmonary window. Consultation during the case was carried using the CT scans to help guide the directions of the biopsies and of the scope, and it was felt that where aggressive approach towards biopsy would be potentially risky and therefore was not undertaken. The mediastinoscope was withdrawn. The pectoralis muscle reapproximated with 3-0 Vicryl and skin closed with 5-0 Vicryl followed by Steri-Strips. He tolerated the procedure well, was awakened and brought to Recovery in good condition. No complications. No drains. Pathologic specimen is aortopulmonary lymph nodes. Sponge and instrument counts correct. Estimated blood loss is 20 mL. [id number]/[facility] #: [id number] [facility]
== END 2016-12-25 13:30 | disposition home or self-care (01) ==
LOC: OR 07:54
PROVIDERS: ATTEND Surgery
DX: R59.0 Localized enlarged lymph nodes (principal); C67.9 Malignant neoplasm of bladder, unspecified; J44.9 Chronic obstructive pulmonary disease, unspecified; I50.9 Heart failure, unspecified; I25.10 Atherosclerotic heart disease of native coronary artery without angina pectoris; I11.0 Hypertensive heart disease with heart failure
CPT/HCPCS: 36415; 86850; 86900; 86901; 88307; A9270-GY; J0330; J0690; J1100; J1170; J1644; J1885; J2250; J2405; J2704; J3010

== ENCOUNTER 2016-12-26 14:47 | Inpatient (IN) | payer MEDICARE ==
[2016-12-26] MEDS ORDERED: Aspirin Low Dose CHEW TAB* 81 MG PO ONE (15:00)
[2016-12-26] MEDS ORDERED: Morphine INJ* 2 MG/ML 1 ML SYRINGE IV ONE (15:14)
[2016-12-26] MEDS ORDERED: Ondansetron INJ* 2 MG/ML VIAL IV ONE (15:14)
[2016-12-26] MEDS ORDERED: Cefepime(*) 2 GM in NS 0.9% 50 ML* 50 ML IVPB ONE (15:30)
[2016-12-26] MEDS ORDERED: Ciprofloxacin 400MG IVPREMIX(* 400 MG/200 ML BAG IVPB ONE (15:30)
--- NOTE | 2016-12-26 15:32 | RAD ---
Indication: Shortness of breath. Post lung biopsy yesterday. Comparison: December 11, 2016 Technique: Upright AP 1507 hours Report: LEFT lateral chest wall, axillary, and supraclavicular subcutaneous emphysema. No pneumothorax evident. Small LEFT dependent pleural effusion is new. Diffuse prominence of the interstitial markings most confluent in the peripheral mid lung zones greater on the RIGHT than the LEFT. Cardiomegaly. Prominent ill-defined central pulmonary vasculature. IMPRESSION: 1. The constellation of findings is most consistent with interstitial and alveolar pulmonary edema new compared with the prior exam. 2. Negative for pneumothorax. Post biopsy subcutaneous emphysema noted. 3. Small LEFT dependent pleural effusion new compared with the prior exam.
[2016-12-26] MEDS ORDERED: Nitroglycerin 2% OINT* 1 GM PAK TOPICAL ONE (15:35)
[2016-12-26] MEDS ORDERED: Furosemide IV* 10 MG/ML 10 ML VIAL (100 MG) IV ONE ×2 (15:35→17:27)
[2016-12-26 15:53] LABS: Hematocrit 43 % (42-52); Mean Corpuscular HGB Conc 32 g/dl (31-36); Mean Corpuscular Hemoglobin 30 pg (27-31); Mean Corpuscular Volume 94 fL (80-94); Mean Platelet Volume 9 um3 (7.4-10.4); Red Cell Distribution Width 14 % (10.5-15); White Blood Count 17.3 10^3/ul (3.5-10.8)
[2016-12-26 15:55] LABS: Add Diff/Slide Review? Slide Review Added; Comments Flag Yes
[2016-12-26] MEDS ORDERED: Nicotine PATCH 14 MG/24 HR* PATCH TRANSDERM ONE (16:00)
[2016-12-26 16:08] LABS: Albumin 3.4 g/dL (3.2-5.2); BUN/Creatinine Ratio 19.3 (8-20); Calcium 8.2 mg/dL (8.6-10.3); EGFR African American 82.9 (>60); EGFR Non-African American 64.5 (>60); Globulin 2.7 g/dL (2-4); Potassium 3.7 mmol/L (3.5-5.0); Total Bilirubin 0.4 mg/dL (0.2-1.0); Total Protein 6.1 g/dL (6.4-8.9)
[2016-12-26 16:10] LABS: Troponin I 0.03 ng/mL (<0.04)
[2016-12-26 16:40] LABS: Immature Granulocytes 3 % (0-9); Neutrophil % 83 % (38-83); RBC Morphology Normal (Normal); Reactive Lymph % 2 % (0-6); Toxic Granulation 1+
[2016-12-26] MEDS ORDERED: Dextrose 50% Syringe 50 ML* 25 GM/50 ML SYRINGE IV PUSH PRN (17:29)
[2016-12-26] MEDS ORDERED: Mouth Piece, Nicotine* 1 EACH CARTRIDGE INH PRN (17:30)
[2016-12-26] MEDS ORDERED: Nicotine Inhaler* 10 MG AMP INH PRN (17:30)
--- NOTE | 2016-12-26 18:58 | RAD ---
INDICATION: Dyspnea. Post biopsy of a node in the chest yesterday. Labored breathing. CHF exacerbation. Question RIGHT middle lobe infiltrate. COMPARISON: Chest radiograph of the same date. October 07, 2016 PET/CT. TECHNIQUE: Multidetector CT images were obtained from the lung apices to the upper abdomen. Evaluation of the viscera is limited without IV contrast. REPORT: Geographic coarse interstitial opacities in the RIGHT upper lobe primarily involving the apical and posterior segments new compared with the December 11, 2016 chest radiograph are nonspecific although most likely representing either interstitial edema, interstitial pneumonia, or pulmonary hemorrhage. Small dependent LEFT pleural effusion with proportional LEFT basilar atelectasis. Trace LEFT pneumothorax and pneumomediastinum as well as extensive LEFT chest wall subcutaneous emphysema reflecting thoracic procedure yesterday. Negative for cardiomegaly or pericardial effusion. Atherosclerotic calcification of normal diameter thoracic aorta. No significant change in size of the prevascular/AP window mass/ lymph node compared with the October 07, 2016 exam measuring up to 2.8 x 2.5 cm. Negative for additional thoracic lymphadenopathy. Images through the upper abdomen are remarkable for fatty infiltration of the liver with focal sparing at the gallbladder fossa. Exophytic cyst at the upper pole of the LEFT kidney. Reactive endplate sclerosis secondary to thoracic and lumbar degenerative spondylosis. Postsurgical change of LEFT side anterior mediastinotomy. Negative for suspicious focal thoracic osseous lesions. IMPRESSION: 1. Geographic coarse interstitial opacities in the RIGHT upper lobe primarily involving the apical and posterior segments new compared with the December 11, 2016 chest radiograph are nonspecific although most likely representing either interstitial edema, interstitial pneumonia, or pulmonary hemorrhage. 2. Small dependent LEFT pleural effusion with proportional LEFT basilar atelectasis. Trace LEFT pneumothorax and pneumomediastinum as well as extensive LEFT chest wall subcutaneous emphysema reflecting thoracic procedure yesterday. 3. No significant change in size of the prevascular/AP window mass/ lymph node compared with the October 07, 2016 exam measuring up to 2.8 x 2.5 cm.
[2016-12-26] MEDS: Gabapentin CAP(*) 300 MG PO SCH (19:26)
[2016-12-26] MEDS: Atorvastatin* 80 MG TAB PO SCH (19:26)
[2016-12-26] MEDS: Magnesium Oxide TAB* 400 MG PO SCH (19:27)
[2016-12-26] MEDS: Tamsulosin CAP* 0.4 MG PO SCH (19:27)
[2016-12-26] MEDS: Carvedilol TAB* 6.25 MG PO SCH (19:27)
[2016-12-26] MEDS: Nicotine Patch Removal NOTE PATCH OFF SCH (20:54)
[2016-12-26] MEDS: Acetaminophen TAB* 325 MG PO PRN (20:54)
[2016-12-26] MEDS: Insulin LISPRO* 1 UNITS UNIT SUBCUT SCH (20:54)
[2016-12-26] MEDS ORDERED: Saline NASAL SPRAY 0.65%* BTL BOTH NARES PRN (21:01)
[2016-12-26] MEDS: Albuterol 2.5 MG/3 ML NEB.SOL* (0.083%) INH PRN (21:17)
[2016-12-26] MEDS: Morphine INJ* 2 MG/ML 1 ML SYRINGE IV PRN (21:34)
[2016-12-26] MEDS: Oxymetazoline 0.05% NASAL SPR* 15 ML BTL BOTH NARES SCH (21:35)
[2016-12-27] MEDS: HYDROcodone/ACETAMIN 5-325 MG* 1 TAB PO PRN ×3 (00:11→21:39)
[2016-12-27] MEDS: Morphine INJ* 2 MG/ML 1 ML SYRINGE IV PRN (02:45)
--- NOTE | 2016-12-27 02:54 | HP ---
CC: Dr. Mcdermott; Dr. Delacruz; Dr. Solano; Dr. Calderon HISTORY AND PHYSICAL: DATE OF ADMISSION: 12/26/16 PRIMARY CARE PROVIDER: Dr. Mcdermott. SALES AGENT FOOD VENDING SERVICE: Dr. Delacruz. POSTDOCTORAL RESEARCH FELLOW: Dr. Solano. SURGEON: Dr. Calderon. CHIEF COMPLAINT: Shortness of breath. HISTORY OF PRESENT ILLNESS: Mr. Chen is a 66-year-old male who presented to the emergency room wi th complaints of shortness of breath. The patient underwent mediastinotomy yesterday for lymph node biopsy with Dr. Calderon. He states that he was discharged home following the surgery and had signif icant chest discomfort. He states that he did not sleep well at all last evening due to pain and sh ortness of breath. The patient states that he feels like he needs to cough; however, it hurts so ba d that he has not been coughing. When he has cough, he has brought up a scant amount of yellow mucu s. He states normally the mucus is clear. The patient denies any recent sick contacts. He denies any recent fevers or chills. He does state that he has had issues with pulmonary edema in the past. He states he never lies flat, therefore, cannot tell me if his breathing feels any better sitting up than lying down. He noticed a swelling in his lower extremities; however, it is not worse than n ormal. PAST MEDICAL HISTORY: 1. History of CVA. 2. Coronary artery disease status post stent x3 for the same lesion. 3. Combined diastolic and systolic congestive heart failure. 4. Peripheral vascular disease status post fem-pop bypass. 5. Carotid endarterectomy. 6. COPD with ongoing tobacco abuse. 7. Type 2 diabetes. 8. Hypertension. 9. Hyperlipidemia. 10. Bladder cancer status post TURBT and BCG therapy. 11. GERD. 12. BPH. 13. Sciatica. 14. Tobacco abuse. PAST SURGICAL HISTORY: 1. Fem-pop bypass. 2. Left carotid endarterectomy. 3. TURBT. 4. Right first finger surgery. 5. Back surgery. 6. Mediastinotomy with lymph node biopsy. 7. Right inguinal hernia repair. MEDICATIONS: 1. Anoro 1 inhalation daily. 2. Torsemide 20 mg p.o. Thursday, Thursday, , Thursday; 40 mg p.o. Thursday, Thursday, Thursday. 3. Flomax 0.4 mg p.o. q.h.s. 4. Januvia 50 mg p.o. daily. 5. Omeprazole 20 mg p.o. daily. 6. Nitroglycerin 0.4 mg SL q.5 minutes p.r.n. chest pain. 7. Magnesium oxide 400 mg p.o. b.i.d. 8. Ibuprofen 800 mg p.o. b.i.d. p.r.n. pain. 9. Neurontin 600 mg p.o. b.i.d. 10. Plavix 75 mg p.o. daily. 11. Coreg 12.5 mg p.o. q.a.m., 6.25 mg p.o. q.p.m. 12. Lipitor 80 mg p.o. q.h.s. 13. Aspirin 81 mg p.o. daily. 14. Amiodarone 200 mg p.o. daily. 15. Albuterol 1 neb inhaled 4 times a day p.r.n. shortness of breath. ALLERGIES: VASQUEZ INHIBITORS which cause angioedema. FAMILY HISTORY: Mom at the age of 76 of some sort of blood clot. Dad at the age of 55. He had numerous MIs and history of cancer. SOCIAL HISTORY: The patient is an active smoker, 1-1/2 packs per day and has done so for greater th an 50 years. He drinks alcohol on occasion. 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 He is not . He has 2 children. His son, Nathan, is his healthcare proxy. REVIEW OF SYSTEMS: No fevers, chills, or anorexia. He admits to chest pain and edema as above. He admits to cough and shortness of breath as above. No nausea, vomiting, abdominal pain, constipatio n, diarrhea, or hematochezia. He states that he has occasional hematuria. No dysuria currently, bu t does state after his BCG treatment, he usually does have some dysuria for a couple of days. No st roke-like symptoms. No sudden changes in vision. No dysphagia. No joint pains or muscle pains out of ordinary. No rashes. No anxiety or depression PHYSICAL EXAMINATION GENERAL: The patient is a well-developed middle-aged male, sitting on the edge of the bed, appearin g to be in no acute distress. VITAL SIGNS: Blood pressure 119/69, pulse 72, respirations 17, temp 98.8, O2 sat is 92% on 3 L. HEENT: Pupils are pinpoint. Extraocular muscles are intact. Oropharynx is clear. Oral mucosa is m oist. There is no submandibular, cervical, or supraclavicular adenopathy. Thyroid is not enlarged. No thyroid nodules are noted. PULMONARY: There are crackles noted at the right mid lung zone. CARDIAC: Normal S1, S2. Regular rate and rhythm. I do not appreciate any murmurs. There is a kam an, dry dressing noted over the left anterior chest wall at the site of his mediastinotomy. There i s 1-2+ bilateral lower extremity pitting edema. ABDOMEN: Bowel sounds are present. Abdomen is soft, nontender, nondistended. MUSCULOSKELETAL: There is no cyanosis or clubbing of the digits. There is full active range of mot ion of all 4 extremities. SKIN: Warm and dry. There are no rashes. Again, the mediastinotomy site is covered with a clean, dry dressing. NEURO: Cranial nerves II through XII are grossly intact. Sensation is intact to light touch throug hout. Strength is 5/5 and symmetric in both upper and lower extremities bilaterally. PSYCH: The patient is alert. He is oriented x3. Affect appears appropriate. LABORATORY DATA: Sodium 130, potassium 3.7, chloride 95, CO2 28, BUN 22, creatinine 1.14, glucose 185, lactic acid 1.7, calcium 8.2, bilirubin 0.4, AST 19, ALT 13, alk phos 93. Troponin 0.03. BNP 594. Albumin 3.4. WBC 17.3, hemoglobin 14.0, hematocrit 43, platelets 212,000. EKG reveals normal sinus rhythm without any acute ST, T-wave abnormalities. Chest x-ray reveals fin dings consistent with interstitial and alveolar pulmonary edema. Negative for pneumothorax. Post bi opsy subcutaneous emphysema is noted. A small left dependent pleural effusion is noted and new comp ared to the prior exam. ASSESSMENT AND PLAN: Mr. Chen is a 66-year-old male who has numerous medical conditions including chronic obstructive pulmonary disease, coronary artery disease, type 2 diabetes and bladder cancer with ongoing therapy, as well as recent mediastinotomy for lymph node biopsy, who presents to the em ergency room with complaints of shortness of breath. 1. Shortness of breath. The differential diagnosis for this include congestive heart failure exace rbation versus pneumonia versus possible pulmonary embolism. I feel pulmonary embolism is quite unl ikely as the patient's surgery was a same-day surgery. If he fails to improve with treatment for co ngestive heart failure and possible pneumonia, we will go ahead and consider scanning him to rule ou t pulmonary embolism. The patient did receive IV Lasix in the emergency room. We will go ahead and give him another dose of IV Lasix tomorrow morning. Additionally, I will go ahead and get a CT scan of the chest to evaluate for right middle lobe infiltrate. I hear focal crackles in this area erika e. The patient will be switched from cefepime and Cipro to levofloxacin. The patient is feeling im proved already; however, we will monitor him overnight and monitor for continued improvement. 2. Chronic obstructive pulmonary disease. At this point, the patient has good breath sounds in all lung valladares. There is no wheezing noted. I will continue him on his usual home medication regimen . I do not feel he needs treatment for chronic obstructive pulmonary disease exacerbation at this p oint. 3. Coronary artery disease. The patient will be maintained on his usual home medication regimen in cluding his aspirin, Lipitor and Coreg. 4. Benign prostatic hyperplasia. The patient will be maintained on his usual dose of Flomax. 5. Type 2 diabetes. The patient's Januvia will be held. He will be placed on a lispro sliding sca le. I will also go ahead and check an A1c tomorrow morning. 6. Tobacco abuse. The patient will have a nicotine patch and nicotine inhaler available as needed for cravings. 7. DVT prophylaxis. According to the Adult Thrombosis Prophylaxis Risk Factor Assessment Guide, th e patient has a total risk factor score of 7 making him high risk; however, given his recent surgery yesterday, I will hold off on subcutaneous heparin for now but likely start this tomorrow after spe aking with General Surgery. 8. Code status is full and again, the patient indicates that his son, Nathan, is his healthcare prox y. TIME SPENT: Sixty minutes were spent admitting this patient. [id number]/[facility] [place] #: [id number]
[2016-12-27] MEDS: Levofloxacin 500 MG IVPREMIX(* 500 MG/100 ML BAG IVPB SCH (04:58)
[2016-12-27 05:25] LABS: Hematocrit 44 % (42-52); Hemoglobin 14.2 g/dl (14.0-18.0); Mean Corpuscular HGB Conc 32 g/dl (31-36); Mean Corpuscular Hemoglobin 31 pg (27-31); Mean Corpuscular Volume 96 fL (80-94); Mean Platelet Volume 9 um3 (7.4-10.4); Red Blood Count 4.64 10^6/ul (4.0-5.4); Red Cell Distribution Width 14 % (10.5-15)
[2016-12-27 05:32] LABS: Add Diff/Slide Review? Slide Review Added; Comments Flag Yes
[2016-12-27 05:36] LABS: BUN/Creatinine Ratio 18.4 (8-20); Calcium 8.8 mg/dL (8.6-10.3); EGFR African American 74.6 (>60); Potassium 4.1 mmol/L (3.5-5.0)
[2016-12-27] MEDS: Albuterol 2.5 MG/3 ML NEB.SOL* (0.083%) INH PRN ×4 (05:46→19:24)
[2016-12-27] MEDS ORDERED: Furosemide IV* 10 MG/ML 10 ML VIAL (100 MG) IV ONE (07:53)
[2016-12-27] MEDS ORDERED: Nitroglycerin 2% OINT* 1 GM PAK TOPICAL ONE (07:54)
[2016-12-27] MEDS ORDERED: Morphine INJ* 2 MG/ML 1 ML SYRINGE IV ONE (07:54)
[2016-12-27] MEDS ORDERED: Furosemide IV* 10 MG/ML 10 ML VIAL (100 MG) ONE (08:00)
[2016-12-27] MEDS ORDERED: Morphine INJ* 2 MG/ML 1 ML SYRINGE ONE (08:00)
[2016-12-27] MEDS ORDERED: Nitroglycerin 2% OINT* 1 GM PAK ONE (08:00)
[2016-12-27] MEDS: Umeclidin/Vilant 62.5 MDI 62.5/25 mcg 14 INH ELLIPTA DEVICE INH SCH (08:07)
[2016-12-27] MEDS: Insulin LISPRO* 1 UNITS UNIT SUBCUT SCH ×4 (08:12→21:40)
[2016-12-27] MEDS: Nicotine PATCH 21 MG/24 HR* PATCH TRANSDERM SCH (09:22)
[2016-12-27] MEDS: Amiodarone TAB* 200 MG PO SCH (09:23)
[2016-12-27] MEDS: CMCS:Pantoprazole TAB (NF) 40 MG TAB PO SCH (09:23)
[2016-12-27] MEDS: Aspirin EC Low Dose* 81 MG TAB.EC PO SCH (09:23)
[2016-12-27] MEDS: Carvedilol TAB* 6.25 MG PO SCH ×2 (09:23→17:48)
[2016-12-27] MEDS: Clopidogrel TAB* 75 MG PO SCH (09:23)
[2016-12-27] MEDS: Magnesium Oxide TAB* 400 MG PO SCH ×2 (09:23→20:01)
[2016-12-27] MEDS: Oxymetazoline 0.05% NASAL SPR* 15 ML BTL BOTH NARES SCH ×2 (09:24→21:42)
[2016-12-27] MEDS: Gabapentin CAP(*) 300 MG PO SCH ×2 (09:24→20:01)
[2016-12-27] MEDS: Heparin VIAL(*) 5000 UNITS/ML VIAL (FIVE THOUSAND) SUBCUT SCH ×2 (14:08→21:45)
--- NOTE | 2016-12-27 15:38 | PN ---
Progress Note - Progress Note Date of Service: 12/27/16 Note: Pt examined, chest CT viewed. Has pain at chest incision site. No erythema or other sign of infection. No unusual swelling. CT seems consistent with post-op state. Will follow peripherally.
[2016-12-27] MEDS: Tamsulosin CAP* 0.4 MG PO SCH (17:48)
[2016-12-27] MEDS ORDERED: Senna TAB PO PRN (19:23)
[2016-12-27] MEDS: Acetaminophen TAB* 325 MG PO PRN (20:00)
[2016-12-27] MEDS: Atorvastatin* 80 MG TAB PO SCH (20:01)
[2016-12-27] MEDS: Nicotine Patch Removal NOTE PATCH OFF SCH (20:07)
[2016-12-28] MEDS: HYDROcodone/ACETAMIN 5-325 MG* 1 TAB PO PRN ×2 (01:58→21:19)
[2016-12-28] MEDS: Levofloxacin 500 MG IVPREMIX(* 500 MG/100 ML BAG IVPB SCH (05:18)
[2016-12-28] MEDS: Heparin VIAL(*) 5000 UNITS/ML VIAL (FIVE THOUSAND) SUBCUT SCH ×3 (05:22→21:19)
[2016-12-28] MEDS: Insulin LISPRO* 1 UNITS UNIT SUBCUT SCH ×4 (08:08→21:52)
[2016-12-28] MEDS: Carvedilol TAB* 6.25 MG PO SCH ×2 (08:09→17:43)
[2016-12-28] MEDS: Nicotine PATCH 21 MG/24 HR* PATCH TRANSDERM SCH (08:09)
[2016-12-28] MEDS: Clopidogrel TAB* 75 MG PO SCH (08:10)
[2016-12-28] MEDS: Aspirin EC Low Dose* 81 MG TAB.EC PO SCH (08:10)
[2016-12-28] MEDS: Gabapentin CAP(*) 300 MG PO SCH ×2 (08:10→21:18)
[2016-12-28] MEDS: Magnesium Oxide TAB* 400 MG PO SCH ×2 (08:10→21:17)
[2016-12-28] MEDS: CMCS:Pantoprazole TAB (NF) 40 MG TAB PO SCH (08:10)
[2016-12-28] MEDS: Amiodarone TAB* 200 MG PO SCH (08:11)
[2016-12-28] MEDS: Oxymetazoline 0.05% NASAL SPR* 15 ML BTL BOTH NARES SCH ×2 (08:13→21:20)
[2016-12-28] MEDS: Umeclidin/Vilant 62.5 MDI 62.5/25 mcg 14 INH ELLIPTA DEVICE INH SCH (08:17)
[2016-12-28] MEDS: Albuterol 2.5 MG/3 ML NEB.SOL* (0.083%) INH PRN ×2 (10:05→20:37)
[2016-12-28] MEDS ORDERED: Simethicone CHEW TAB* 80 MG PO PRN (10:45)
[2016-12-28] MEDS ORDERED: Artificial Tears* 15 ML BTL BOTH EYES PRN ×2 (10:45→11:29)
[2016-12-28] MEDS ORDERED: Polyethylene Glycol 3350* 17 GM PACKET PO PRN (11:23)
[2016-12-28] MEDS ORDERED: Magnesium Hydroxide LIQ* 30 ML UDC PO PRN (11:29)
[2016-12-28] MEDS ORDERED: Torsemide TAB* 20 MG PO ONE (11:32)
--- NOTE | 2016-12-28 11:41 | PN ---
Subjective Date of Service: 12/28/16 Interval History: LATE ENTRY: Pt seen on 12/27/16 at approximately 0800. Pt states his breathing is very difficult. He feels like he is filled up with fluid. He still feels like he can not cough well due to pain from his recent surgery. Objective Active Medications: Acetaminophen (Tylenol Tab*) 650 mg PO Q4H PRN PRN Reason: FEVER/PAIN Last Admin: 12/27/16 20:00 Dose: 650 mg Hydrocodone Bitart/Acetaminophen ([place] 5-325 Tab*) 1 tab PO Q4H PRN PRN Reason: PAIN Last Admin: 12/28/16 01:58 Dose: 1 tab Albuterol (Ventolin 2.5 Mg/3 Ml Neb.Luz Elena*) 2.5 mg INH QID PRN PRN Reason: SHORTNESS OF BREATH Last Admin: 12/28/16 10:05 Dose: 2.5 mg Amiodarone HCl (Cordarone Tab*) 200 mg PO QAM [facility] Last Admin: 12/28/16 08:11 Dose: 200 mg Aspirin (Aspirin Ec Low Dose*) 81 mg PO DAILY [facility] Last Admin: 12/28/16 08:10 Dose: 81 mg Atorvastatin Calcium (Lipitor*) 80 mg PO BEDTIME [facility] Last Admin: 12/27/16 20:01 Dose: 80 mg Carvedilol (Coreg Tab*) 6.25 mg PO QPM [facility] Last Admin: 12/27/16 17:48 Dose: 6.25 mg Carvedilol (Coreg Tab*) 12.5 mg PO QAM [facility] Last Admin: 12/28/16 08:09 Dose: 12.5 mg Clopidogrel Bisulfate (Plavix Tab*) 75 mg PO QAM [facility] Last Admin: 12/28/16 08:10 Dose: 75 mg Device (Nicotine Mouth Piece*) 1 each INH .USE WITH NICOTROL PRN PRN Reason: CRAVING Dextrose (D50w Syringe 50 Ml*) 12.5 gm IV PUSH .FOR FS < 60 - SS PRN PRN Reason: FS < 60 Gabapentin (Neurontin Cap(*)) 600 mg PO BID [facility] Last Admin: 12/28/16 08:10 Dose: 600 mg Heparin Sodium (Porcine) (Heparin Vial(*)) 5,000 units SUBCUT Q8HR [facility] Last Admin: 12/28/16 05:22 Dose: 5,000 units Levofloxacin/Dextrose (Levaquin 500 Mg Ivpremix(*)) 500 mg in 100 mls @ 100 mls /hr IVPB Q24H [facility] Last Admin: 12/28/16 05:18 Dose: 100 mls/hr Insulin Human Lispro (Humalog*) 0 units SUBCUT ACHS [facility] PRN Reason: Protocol Last Admin: 12/28/16 08:08 Dose: 2 units Magnesium Hydroxide (Milk Of Magnesia Liq*) 30 ml PO Q6H PRN PRN Reason: CONSTIPATION Magnesium Oxide (Magox 400 Tab*) 400 mg PO BID [facility] Last Admin: 12/28/16 08:10 Dose: 400 mg Morphine Sulfate (Morphine Inj (Syringe)*) 2 mg IV Q4H PRN PRN Reason: PAIN - SEVERE Last Admin: 12/27/16 02:45 Dose: 2 mg Nicotine (Nicotine Inhaler*) 10 mg INH Q2H PRN PRN Reason: CRAVING Nicotine (Nicotine Patch 21 Mg/24 Hr*) 1 patch TRANSDERM DAILY@0800 [facility] Last Admin: 12/28/16 08:09 Dose: 1 patch Oxymetazoline HCl (Afrin 0.05% Nasal [place]*) 2 spray BOTH NARES BID [facility] Last Admin: 12/28/16 08:13 Dose: 2 spray Pantoprazole Sodium (Protonix Tab (Nf)) 40 mg PO QAM [facility] Last Admin: 12/28/16 08:10 Dose: 40 mg Pharmacy Profile Note (Nicotine Patch Removal Note*) 1 note PATCH OFF 1999 [facility] Last Admin: 12/27/16 20:07 Dose: Not Given Polyethylene Glycol/Electrolytes (Miralax*) 17 gm PO DAILY PRN PRN Reason: CONSTIPATION Polyvinyl Alcohol (Polyvinyl Alcohol 1.4% Opth*) 1 drop BOTH EYES Q2H PRN PRN Reason: DRY EYE Senna (Senokot Tab*) 2 tab PO BEDTIME PRN PRN Reason: CONSTIPATION Last Admin: 12/27/16 20:00 Dose: 2 tab Simethicone (Mylicon*) 80 mg PO Q6H PRN PRN Reason: bloating Last Admin: 12/28/16 11:02 Dose: 80 mg Sodium Chloride (Sodium Chloride 0.65% Nasal [place]*) 1 spray BOTH NARES Q4H PRN PRN Reason: CONGESTION Tamsulosin HCl (Flomax Cap*) 0.4 mg PO QPM [facility] Last Admin: 12/27/16 17:48 Dose: 0.4 mg Torsemide (Demadex*) 20 mg PO ONCE ONE Stop: 12/28/16 11:33 Umeclidinium/Vilanterol (Anoro 62.5/25 Ellipta Device (Nf)) 1 inh INH QAM [facility] Last Admin: 12/28/16 08:17 Dose: Not Given Vital Signs 12/27/16 12/27/16 12/27/16 11:38 12:00 13:00 Temperature 97.7 F Pulse Rate 83 Respiratory 20 19 22 Rate Blood Pressure 123/67 (mmHg) O2 Sat by Pulse 90 Oximetry 12/27/16 12/27/16 12/27/16 13:35 14:00 15:00 Temperature Pulse Rate Respiratory 20 2 11 Rate Blood Pressure (mmHg) O2 Sat by Pulse Oximetry 12/27/16 12/27/16 12/27/16 15:03 15:33 16:00 Temperature 97.2 F Pulse Rate 84 84 Respiratory 17 20 35 Rate Blood Pressure 113/63 (mmHg) O2 Sat by Pulse 83 90 Oximetry 12/27/16 12/27/16 12/27/16 17:00 18:00 19:00 Temperature Pulse Rate Respiratory 20 19 19 Rate Blood Pressure (mmHg) O2 Sat by Pulse Oximetry 12/27/16 12/27/16 12/27/16 19:25 20:00 20:01 Temperature Pulse Rate 99 Respiratory 20 20 20 Rate Blood Pressure (mmHg) O2 Sat by Pulse 96 Oximetry 12/27/16 12/27/16 12/27/16 20:02 21:00 21:39 Temperature 98.5 F Pulse Rate 94 Respiratory 20 37 20 Rate Blood Pressure 118/67 (mmHg) O2 Sat by Pulse 94 Oximetry 12/27/16 12/27/16 12/27/16 22:00 22:01 23:00 Temperature Pulse Rate Respiratory 12 18 15 Rate Blood Pressure (mmHg) O2 Sat by Pulse Oximetry 12/27/16 12/27/16 12/28/16 23:38 23:39 00:00 Temperature 98.4 F Pulse Rate 81 Respiratory 20 18 2 Rate Blood Pressure 113/57 (mmHg) O2 Sat by Pulse 93 Oximetry 12/28/16 12/28/16 12/28/16 00:01 01:00 01:58 Temperature Pulse Rate Respiratory 16 14 20 Rate Blood Pressure (mmHg) O2 Sat by Pulse Oximetry 12/28/16 12/28/16 12/28/16 02:00 03:00 03:58 Temperature Pulse Rate Respiratory 20 19 20 Rate Blood Pressure (mmHg) O2 Sat by Pulse Oximetry 12/28/16 12/28/16 12/28/16 04:00 04:05 05:00 Temperature 98.0 F Pulse Rate 82 Respiratory 18 22 61 Rate Blood Pressure 137/64 (mmHg) O2 Sat by Pulse 94 Oximetry 12/28/16 12/28/16 12/28/16 06:00 07:00 07:46 Temperature 97.5 F Pulse Rate 90 Respiratory 12 12 20 Rate Blood Pressure 129/68 (mmHg) O2 Sat by Pulse 92 Oximetry 12/28/16 12/28/16 12/28/16 08:00 08:10 09:00 Temperature Pulse Rate Respiratory 21 22 10 Rate Blood Pressure (mmHg) O2 Sat by Pulse Oximetry 12/28/16 12/28/16 10:00 10:06 Temperature Pulse Rate 85 Respiratory 12 22 Rate Blood Pressure (mmHg) O2 Sat by Pulse 90 Oximetry Oxygen Devices in Use Now: Nasal Cannula Appearance: Middle aged male sitting on the edge of the bed, NAD Eyes: No Scleral Icterus Ears/Nose/Mouth/Throat: Mucous Membranes Moist Respiratory: Symmetrical Chest Expansion and Respiratory Effort, - - very coarse breath sounds diffusely Cardiovascular: NL Sounds; No Murmurs; No JVD, RRR, - - 1+ LE edema Abdominal: NL Sounds; No Tenderness; No Distention Extremities: No Clubbing, Cyanosis Skin: No Rash or Ulcers, No Nodules or Sclerosis Neurological: Alert and Oriented x 3 Result Diagrams: 12/27/16 05:12 12/27/16 05:12 Assess/Plan/Problems-Billing Mr Chen is a 66 yo M who has a h/o COPD, mediastinal lymphadenopathy s/p mediastinotomy for biopsy on 12/25/16, CAD, combined systolic and diastolic CHF, type II DM, HTN and bladder cancer who presented to the ER with c/o SOB. - Patient Problems (1) Dyspnea Current Visit: Yes Status: Acute Code(s): R06.00 - DYSPNEA, UNSPECIFIED SNOMED Code(s): 008427690 Comment: Likely multifactorial from pulmonary edema and possible R upper lobe pna. Will give lasix IV now and continue to treat with levaquin for possible pna. His breathing is currently worse than it has been. Will also utilize NTG paste and morphine to see if it helps his breathing. (2) Combined systolic and diastolic heart failure Current Visit: Yes Status: Acute Code(s): I50.40 - UNSP COMBINED SYSTOLIC AND DIASTOLIC (CONGESTIVE) HRT FAIL SNOMED Code(s): 12027801 Comment: Continue diuretic therapy with IV lasix as he seems more fluid overloaded currently. (3) COPD (chronic obstructive pulmonary disease) Current Visit: Yes Status: Chronic Code(s): J44.9 - CHRONIC OBSTRUCTIVE PULMONARY DISEASE, UNSPECIFIED SNOMED Code(s): 29328458 Comment: No signs of exacerbation at this time-no wheezing or tightness. No need for steroids currently. (4) Diabetes Current Visit: Yes Status: Chronic Code(s): E11.9 - TYPE 2 DIABETES MELLITUS WITHOUT COMPLICATIONS SNOMED Code(s): 46184374 Comment: Type II DM. Sugars are under fair control. Continue lispro sliding scale. (5) CAD (coronary artery disease) Current Visit: Yes Status: Chronic Code(s): I25.10 - ATHSCL HEART DISEASE OF [place] CORONARY ARTERY W/O ANG PCTRS SNOMED Code(s): 68761947 Comment: Pt c/o chest pain but at the site of his recent surgery. Will continue ASA, plavix, coreg and amiodarone. (6) GERD (gastroesophageal reflux disease) Current Visit: Yes Status: Chronic Code(s): K21.9 - GASTRO-ESOPHAGEAL REFLUX DISEASE WITHOUT ESOPHAGITIS SNOMED Code(s): 062603680 Comment: Continue pantoprazole. (7) Tobacco abuse Current Visit: Yes Status: Chronic Code(s): Z72.0 - TOBACCO USE SNOMED Code(s): 173177340 Comment: Encourage smoking cessation. (8) DVT prophylaxis Current Visit: Yes Status: Acute Code(s): OCZ1450 - SNOMED Code(s): 849210914 Comment: SQ heparin
--- NOTE | 2016-12-28 11:58 | PN ---
Subjective Date of Service: 12/28/16 Interval History: Pt is feeling slightly better today. He is asking when he can go home. In addition to SOB which is slightly better today he states he feels very constipated and would like MOM. He states he has been getting anxious but getting up an walking around helps. Objective Active Medications: Acetaminophen (Tylenol Tab*) 650 mg PO Q4H PRN PRN Reason: FEVER/PAIN Last Admin: 12/27/16 20:00 Dose: 650 mg Hydrocodone Bitart/Acetaminophen ([place] 5-325 Tab*) 1 tab PO Q4H PRN PRN Reason: PAIN Last Admin: 12/28/16 01:58 Dose: 1 tab Albuterol (Ventolin 2.5 Mg/3 Ml Neb.Luz Elena*) 2.5 mg INH QID PRN PRN Reason: SHORTNESS OF BREATH Last Admin: 12/28/16 10:05 Dose: 2.5 mg Amiodarone HCl (Cordarone Tab*) 200 mg PO QAM [facility] Last Admin: 12/28/16 08:11 Dose: 200 mg Aspirin (Aspirin Ec Low Dose*) 81 mg PO DAILY [facility] Last Admin: 12/28/16 08:10 Dose: 81 mg Atorvastatin Calcium (Lipitor*) 80 mg PO BEDTIME [facility] Last Admin: 12/27/16 20:01 Dose: 80 mg Carvedilol (Coreg Tab*) 6.25 mg PO QPM [facility] Last Admin: 12/27/16 17:48 Dose: 6.25 mg Carvedilol (Coreg Tab*) 12.5 mg PO QAM [facility] Last Admin: 12/28/16 08:09 Dose: 12.5 mg Clopidogrel Bisulfate (Plavix Tab*) 75 mg PO QAM [facility] Last Admin: 12/28/16 08:10 Dose: 75 mg Device (Nicotine Mouth Piece*) 1 each INH .USE WITH NICOTROL PRN PRN Reason: CRAVING Dextrose (D50w Syringe 50 Ml*) 12.5 gm IV PUSH .FOR FS < 60 - SS PRN PRN Reason: FS < 60 Gabapentin (Neurontin Cap(*)) 600 mg PO BID [facility] Last Admin: 12/28/16 08:10 Dose: 600 mg Heparin Sodium (Porcine) (Heparin Vial(*)) 5,000 units SUBCUT Q8HR [facility] Last Admin: 12/28/16 05:22 Dose: 5,000 units Levofloxacin/Dextrose (Levaquin 500 Mg Ivpremix(*)) 500 mg in 100 mls @ 100 mls /hr IVPB Q24H [facility] Last Admin: 12/28/16 05:18 Dose: 100 mls/hr Insulin Human Lispro (Humalog*) 0 units SUBCUT ACHS [facility] PRN Reason: Protocol Last Admin: 12/28/16 08:08 Dose: 2 units Magnesium Hydroxide (Milk Of Magnesia Liq*) 30 ml PO Q6H PRN PRN Reason: CONSTIPATION Magnesium Oxide (Magox 400 Tab*) 400 mg PO BID [facility] Last Admin: 12/28/16 08:10 Dose: 400 mg Morphine Sulfate (Morphine Inj (Syringe)*) 2 mg IV Q4H PRN PRN Reason: PAIN - SEVERE Last Admin: 12/27/16 02:45 Dose: 2 mg Nicotine (Nicotine Inhaler*) 10 mg INH Q2H PRN PRN Reason: CRAVING Nicotine (Nicotine Patch 21 Mg/24 Hr*) 1 patch TRANSDERM DAILY@0800 [facility] Last Admin: 12/28/16 08:09 Dose: 1 patch Oxymetazoline HCl (Afrin 0.05% Nasal [place]*) 2 spray BOTH NARES BID [facility] Last Admin: 12/28/16 08:13 Dose: 2 spray Pantoprazole Sodium (Protonix Tab (Nf)) 40 mg PO QAM [facility] Last Admin: 12/28/16 08:10 Dose: 40 mg Pharmacy Profile Note (Nicotine Patch Removal Note*) 1 note PATCH OFF 1999 [facility] Last Admin: 12/27/16 20:07 Dose: Not Given Polyethylene Glycol/Electrolytes (Miralax*) 17 gm PO DAILY PRN PRN Reason: CONSTIPATION Polyvinyl Alcohol (Polyvinyl Alcohol 1.4% Opth*) 1 drop BOTH EYES Q2H PRN PRN Reason: DRY EYE Senna (Senokot Tab*) 2 tab PO BEDTIME PRN PRN Reason: CONSTIPATION Last Admin: 12/27/16 20:00 Dose: 2 tab Simethicone (Mylicon*) 80 mg PO Q6H PRN PRN Reason: bloating Last Admin: 12/28/16 11:02 Dose: 80 mg Sodium Chloride (Sodium Chloride 0.65% Nasal [place]*) 1 spray BOTH NARES Q4H PRN PRN Reason: CONGESTION Tamsulosin HCl (Flomax Cap*) 0.4 mg PO QPM [facility] Last Admin: 12/27/16 17:48 Dose: 0.4 mg Umeclidinium/Vilanterol (Anoro 62.5/25 Ellipta Device (Nf)) 1 inh INH QAM [facility] Last Admin: 12/28/16 08:17 Dose: Not Given Vital Signs 12/27/16 12/27/16 12/27/16 12:00 13:00 13:35 Temperature Pulse Rate Respiratory 19 22 20 Rate Blood Pressure (mmHg) O2 Sat by Pulse Oximetry 12/27/16 12/27/16 12/27/16 14:00 15:00 15:03 Temperature Pulse Rate 84 Respiratory 2 11 17 Rate Blood Pressure (mmHg) O2 Sat by Pulse 83 Oximetry 12/27/16 12/27/16 12/27/16 15:33 16:00 17:00 Temperature 97.2 F Pulse Rate 84 Respiratory 20 35 20 Rate Blood Pressure 113/63 (mmHg) O2 Sat by Pulse 90 Oximetry 12/27/16 12/27/16 12/27/16 18:00 19:00 19:25 Temperature Pulse Rate 99 Respiratory 19 19 20 Rate Blood Pressure (mmHg) O2 Sat by Pulse 96 Oximetry 12/27/16 12/27/16 12/27/16 20:00 20:01 20:02 Temperature 98.5 F Pulse Rate 94 Respiratory 20 20 20 Rate Blood Pressure 118/67 (mmHg) O2 Sat by Pulse 94 Oximetry 12/27/16 12/27/16 12/27/16 21:00 21:39 22:00 Temperature Pulse Rate Respiratory 37 20 12 Rate Blood Pressure (mmHg) O2 Sat by Pulse Oximetry 12/27/16 12/27/16 12/27/16 22:01 23:00 23:38 Temperature 98.4 F Pulse Rate 81 Respiratory 18 15 20 Rate Blood Pressure 113/57 (mmHg) O2 Sat by Pulse 93 Oximetry 12/27/16 12/28/16 12/28/16 23:39 00:00 00:01 Temperature Pulse Rate Respiratory 18 2 16 Rate Blood Pressure (mmHg) O2 Sat by Pulse Oximetry 12/28/16 12/28/16 12/28/16 01:00 01:58 02:00 Temperature Pulse Rate Respiratory 14 20 20 Rate Blood Pressure (mmHg) O2 Sat by Pulse Oximetry 12/28/16 12/28/16 12/28/16 03:00 03:58 04:00 Temperature Pulse Rate Respiratory 19 20 18 Rate Blood Pressure (mmHg) O2 Sat by Pulse Oximetry 12/28/16 12/28/16 12/28/16 04:05 05:00 06:00 Temperature 98.0 F Pulse Rate 82 Respiratory 22 61 12 Rate Blood Pressure 137/64 (mmHg) O2 Sat by Pulse 94 Oximetry 12/28/16 12/28/16 12/28/16 07:00 07:46 08:00 Temperature 97.5 F Pulse Rate 90 Respiratory 12 20 21 Rate Blood Pressure 129/68 (mmHg) O2 Sat by Pulse 92 Oximetry 12/28/16 12/28/16 12/28/16 08:10 09:00 10:00 Temperature Pulse Rate Respiratory 22 10 12 Rate Blood Pressure (mmHg) O2 Sat by Pulse Oximetry 12/28/16 10:06 Temperature Pulse Rate 85 Respiratory 22 Rate Blood Pressure (mmHg) O2 Sat by Pulse 90 Oximetry Oxygen Devices in Use Now: Nasal Cannula Appearance: Middle aged male standing in the room, NAD Eyes: No Scleral Icterus Ears/Nose/Mouth/Throat: Mucous Membranes Moist Respiratory: Symmetrical Chest Expansion and Respiratory Effort, - - improved breath sounds diffusely though still with ronchi Cardiovascular: NL Sounds; No Murmurs; No JVD, RRR, - - 1-2+ LE edema Abdominal: NL Sounds; No Tenderness; No Distention Skin: No Nodules or Sclerosis Neurological: Alert and Oriented x 3 Result Diagrams: 12/27/16 05:12 12/27/16 05:12 Assess/Plan/Problems-Billing Mr Chen is a 66 yo M who has a h/o COPD, mediastinal lymphadenopathy s/p mediastinotomy for biopsy on 12/25/16, CAD, combined systolic and diastolic CHF, type II DM, HTN and bladder cancer who presented to the ER with c/o SOB. - Patient Problems (1) Dyspnea Current Visit: Yes Status: Acute Code(s): R06.00 - DYSPNEA, UNSPECIFIED SNOMED Code(s): 280662328 Comment: Likely multifactorial from pulmonary edema and possible R upper lobe pna. Breathing is somewhat better today but still not back to normal. Will resume his usual dose of torsemide today and continue on levaquin for possible pna. Will repeat the CXR tomorrow. (2) Combined systolic and diastolic heart failure Current Visit: Yes Status: Acute Code(s): I50.40 - UNSP COMBINED SYSTOLIC AND DIASTOLIC (CONGESTIVE) HRT FAIL SNOMED Code(s): 55923367 Comment: Change back to torsemide today. Monitor fluid status. (3) COPD (chronic obstructive pulmonary disease) Current Visit: Yes Status: Chronic Code(s): J44.9 - CHRONIC OBSTRUCTIVE PULMONARY DISEASE, UNSPECIFIED SNOMED Code(s): 28755763 Comment: No signs of exacerbation at this time-no wheezing or tightness. No need for steroids currently. (4) Diabetes Current Visit: Yes Status: Chronic Code(s): E11.9 - TYPE 2 DIABETES MELLITUS WITHOUT COMPLICATIONS SNOMED Code(s): 91454320 Comment: Type II DM. Sugars are under fair control. Continue lispro sliding scale. (5) CAD (coronary artery disease) Current Visit: Yes Status: Chronic Code(s): I25.10 - ATHSCL HEART DISEASE OF [place] CORONARY ARTERY W/O ANG PCTRS SNOMED Code(s): 92083584 Comment: Pt c/o chest pain but at the site of his recent surgery. Will continue ASA, plavix, coreg and amiodarone. (6) GERD (gastroesophageal reflux disease) Current Visit: Yes Status: Chronic Code(s): K21.9 - GASTRO-ESOPHAGEAL REFLUX DISEASE WITHOUT ESOPHAGITIS SNOMED Code(s): 112116394 Comment: Continue pantoprazole. (7) Tobacco abuse Current Visit: Yes Status: Chronic Code(s): Z72.0 - TOBACCO USE SNOMED Code(s): 404641885 Comment: Encourage smoking cessation. (8) DVT prophylaxis Current Visit: Yes Status: Acute Code(s): YMD2027 - SNOMED Code(s): 156432866 Comment: SQ heparin
[2016-12-28] MEDS: Tamsulosin CAP* 0.4 MG PO SCH (17:43)
[2016-12-28] MEDS: Atorvastatin* 80 MG TAB PO SCH (21:18)
[2016-12-28] MEDS: Nicotine Patch Removal NOTE PATCH OFF SCH (21:25)
[2016-12-29] MEDS: Morphine INJ* 2 MG/ML 1 ML SYRINGE IV PRN (01:56)
[2016-12-29] MEDS ORDERED: Albuterol 2.5 MG/3 ML NEB.SOL* (0.083%) INH PRN (02:02)
[2016-12-29] MEDS ORDERED: Albuterol 2.5 MG/3 ML NEB.SOL* (0.083%) ONE (02:07)
[2016-12-29 05:01] LABS: Hematocrit 40 % (42-52); Hemoglobin 13.1 g/dl (14.0-18.0); Mean Corpuscular HGB Conc 33 g/dl (31-36); Mean Corpuscular Hemoglobin 30 pg (27-31); Mean Corpuscular Volume 94 fL (80-94); Mean Platelet Volume 9 um3 (7.4-10.4); Red Blood Count 4.29 10^6/ul (4.0-5.4); Red Cell Distribution Width 13 % (10.5-15); White Blood Count 12.7 10^3/ul (3.5-10.8)
[2016-12-29 05:07] LABS: BUN/Creatinine Ratio 19.2 (8-20); Calcium 9.1 mg/dL (8.6-10.3); EGFR African American 97.6 (>60); EGFR Non-African American 75.9 (>60); Potassium 3.9 mmol/L (3.5-5.0)
[2016-12-29] MEDS ORDERED: guaiFENesin/CODIEN 100MG-10MG* 5 ML UDC PO PRN (05:19)
[2016-12-29] MEDS ORDERED: Benzonatate CAP* 100 MG PO PRN (05:19)
[2016-12-29] MEDS: Levofloxacin 500 MG IVPREMIX(* 500 MG/100 ML BAG IVPB SCH (05:45)
[2016-12-29] MEDS: Heparin VIAL(*) 5000 UNITS/ML VIAL (FIVE THOUSAND) SUBCUT SCH (05:46)
--- NOTE | 2016-12-29 08:08 | RAD ---
INDICATION: Exacerbation of congestive heart failure COMPARISON: Most recent comparison chest x-ray is dated December 26, 2016 TECHNIQUE: PA and lateral views of the chest were obtained. FINDINGS: There is a mild degree of cardiomegaly similar in appearance to the previous chest x-ray. The heart and mediastinum otherwise exhibit normal contours. There are patchy reticulonodular densities most severely overlying the lateral aspect of the right middle lung. A more linear density at the right lung base is new from the previous chest x-ray. The lungs are otherwise adequately aerated. There is no significant costophrenic angle blunting. Visualized bones are normal for the patient's age. There is no radiographic evidence of free air beneath the diaphragm IMPRESSION: CHEST X-RAY FINDINGS INCLUDE LIKELY ATELECTASIS AT THE RIGHT LUNG BASE AND EITHER AN APPEARANCE ASSOCIATED WITH A PULMONARY EDEMA OR INTERLOBULAR THICKENING OF EARLY INTERSTITIAL LUNG DISEASE. OVERALL THE DEGREE OF AERATION IS SLIGHTLY IMPROVED WHEN COMPARED TO THE DECEMBER 26, 2016 CHEST X-RAY.
[2016-12-29] MEDS: CMCS:Pantoprazole TAB (NF) 40 MG TAB PO SCH (08:12)
[2016-12-29] MEDS: Amiodarone TAB* 200 MG PO SCH (08:12)
[2016-12-29] MEDS: Aspirin EC Low Dose* 81 MG TAB.EC PO SCH (08:12)
[2016-12-29] MEDS: Clopidogrel TAB* 75 MG PO SCH (08:13)
[2016-12-29] MEDS: Carvedilol TAB* 6.25 MG PO SCH (08:13)
[2016-12-29] MEDS: Gabapentin CAP(*) 300 MG PO SCH (08:13)
[2016-12-29] MEDS: Magnesium Oxide TAB* 400 MG PO SCH (08:13)
[2016-12-29] MEDS: Insulin LISPRO* 1 UNITS UNIT SUBCUT SCH ×2 (08:14→14:46)
[2016-12-29] MEDS: Nicotine PATCH 21 MG/24 HR* PATCH TRANSDERM SCH (08:14)
[2016-12-29] MEDS: Acetaminophen TAB* 325 MG PO PRN (08:21)
[2016-12-29] MEDS: Umeclidin/Vilant 62.5 MDI 62.5/25 mcg 14 INH ELLIPTA DEVICE INH SCH (08:23)
[2016-12-29 10:44] VITALS: BP 139/79
[2016-12-29] MEDS: Oxymetazoline 0.05% NASAL SPR* 15 ML BTL BOTH NARES SCH (11:56)
--- NOTE | 2016-12-30 14:51 | DS ---
CC: Dr. Mcdermott; Dr. Calderon * DISCHARGE SUMMARY: DATE OF ADMISSION: 12/26/16 DATE OF DISCHARGE: 12/29/16 PRIMARY CARE PROVIDER: Dr. Mcdermott. PRINCIPAL DIAGNOSES: 1. Acute systolic congestive heart failure. 2. Probable right upper lobe community-acquired pneumonia. SECONDARY DIAGNOSES: 1. Chronic obstructive pulmonary disease. 2. Recent mediastinotomy for lymph node biopsy. 3. Coronary artery disease. 4. Peripheral vascular disease. 5. Type 2 diabetes. 6. Hypertension. 7. Hyperlipidemia. 8. Tobacco abuse. DISCHARGE MEDICATIONS: 1. [place] 5/325 one to two tabs p.o. q.6 hours p.r.n. pain. 2. Anoro 1 inhalation daily. 3. Torsemide 20 mg p.o. Thursday, Thursday, , Thursday; 40 mg Thursday, Thursday, Thursday. 4. Januvia 50 mg p.o. daily. 5. Albuterol 1 neb inhaled four times a day p.r.n. shortness of breath. 6. Ibuprofen 800 mg p.o. b.i.d. p.r.n. pain. 7. Magnesium oxide 400 mg p.o. b.i.d. 8. Lipitor 80 mg p.o. q.h.s. 9. Amiodarone 200 mg p.o. daily. 10. Gabapentin 600 mg p.o. b.i.d. 11. Aspirin 81 mg p.o. daily. 12. Omeprazole 20 mg p.o. daily. 13. Flomax 0.4 mg p.o. q.h.s. 14. Nitroglycerin 0.4 mg SL q.5 minutes p.r.n. chest pain. 15. Plavix 75 mg p.o. daily. 16. Coreg 6.25 mg p.o. q.p.m., 12.5 mg p.o. q.a.m. 17. Levofloxacin 500 mg p.o. daily x4 doses. 18. Tessalon 200 mg p.o. t.i.d. p.r.n. cough. HOSPITAL COURSE: Mr. Chen is a 66-year-old male, who underwent mediastinotomy on 12/25/[address] Calderon for lymph node biopsy. He stated that following the procedure, he had a tremendous amount of pain in his chest. He did not sleep well due to the pain and shortness of breath. Additionally, he notes that he needed to cough; however, he was unable to do so because of the pain. Because of all this, the patient presented to the emergency room for evaluation. In the ER, the patient's chest x-ray was suggestive of pulmonary edema. A CT scan of the chest, however, was also obtained as there appeared to be a more focal area of consolidation in the right mid lung zone. The patient was treated for both systolic CHF with IV Lasix as well as levofloxacin for presumed community-acquired pneumonia. Over the course of the hospitalization, the patient's shortness of breath improved back to his baseline level. He was requiring supplemental oxygen. The patient will continue on 3 L of nasal cannula oxygen continuously for now; however, as he improves from the probable pneumonia and his recent surgery, this may be able to be stopped. The patient is to follow up with his primary care provider to determine if the supplemental oxygen is still needed. The patient was seen in followup by Dr. Calderon, who inspected the patient's wound. This was felt to be without any concerning features. The patient will follow up with Dr. Calderon as there is already a scheduled appointment. I have not made any medication changes for the patient outside of adding Levaquin and Tessalon Perles. FOLLOWUP CONCERNS: The patient is being discharged home today, 12/29/16. ACTIVITY LEVEL: As tolerated. DIET: Low fat. CONDITION ON DISCHARGE: Stable. The patient should follow up with Dr. Mcdermott in the next 4 to [address] Calderon as there is already a scheduled appointment. TIME SPENT: Thirty-five minutes was spent discharging this patient. [id number]/[facility] #: [id number] MTDD
== END 2016-12-29 12:32 | disposition home or self-care (01) | DRG 291 ==
LOC: ED 14:47 → MEDTELE 16:05
PROVIDERS: ADMIT Hospitalist; ATTEND Hospitalist
DX: I11.0 Hypertensive heart disease with heart failure (principal); J18.1 Lobar pneumonia, unspecified organism; E11.51 Type 2 diabetes mellitus with diabetic peripheral angiopathy without gangrene; J44.0 Chronic obstructive pulmonary disease with (acute) lower respiratory infection; I25.10 Atherosclerotic heart disease of native coronary artery without angina pectoris; K21.9 Gastro-esophageal reflux disease without esophagitis; F17.200 Nicotine dependence, unspecified, uncomplicated; Z86.73 Personal history of transient ischemic attack (TIA), and cerebral infarction without residual deficits; Z95.5 Presence of coronary angioplasty implant and graft; N40.0 Benign prostatic hyperplasia without lower urinary tract symptoms; M54.30 Sciatica, unspecified side; Z85.51 Personal history of malignant neoplasm of bladder; Z88.8 Allergy status to other drugs, medicaments and biological substances; Z82.49 Family history of ischemic heart disease and other diseases of the circulatory system; Z79.82 Long term (current) use of aspirin; Z79.02 Long term (current) use of antithrombotics/antiplatelets; E78.5 Hyperlipidemia, unspecified; I50.43 Acute on chronic combined systolic (congestive) and diastolic (congestive) heart failure; Z80.9 Family history of malignant neoplasm, unspecified; K59.00 Constipation, unspecified
CPT/HCPCS: 36415; 71010; 71020; 71250; 80048; 80053; 83036; 83605; 83880; 84484; 85025; 93005; 94640; 94760; A9270-GY; J0692; J0744; J1644; J1940; J1956; J2270; J2405

== ENCOUNTER 2017-02-12 06:41 | Day surgery (SDC) | payer MEDICARE ==
[~2017-02-12 06:41] MED LIST changes: -Famotidine IV* 10 MG/ML 2 ML (20 mg) IV ONE; -Famotidine IV* 10 MG/ML 2 ML (20 mg) ONE; -ceFAZolin 2 GM PREMIX(*) 2 GM/50 ML BAG IVPB ONE
[2017-02-12] MEDS ORDERED: Buffered Lidocaine 0.9% SYRIN* 5 ML/SYR SYRINGE ONE (11:36)
[2017-02-12] MEDS ORDERED: Lidocaine 1% INJ* 10 MG/ML 30 ML SDV ONE (11:52)
[2017-02-12] MEDS ORDERED: ceFAZolin 2 GM PREMIX (*) 50 ML IVPB ONE (12:07)
[2017-02-12 12:59] VITALS: BP 137/68
--- NOTE | 2017-02-12 13:32 | RAD ---
HISTORY: Chest port placement COMPARISONS: Solitary June 20, 2016 VIEWS: 1: frontal portable view of the chest at 1:05 PM FINDINGS: LINES AND TUBES: The right-sided chest port is noted from subclavian approach with the tip overlying the cavoatrial junction. CARDIOMEDIASTINAL SILHOUETTE: The cardiomediastinal silhouette is stable. PLEURA: The costophrenic angles are sharp. No pleural abnormalities are noted. There is no pneumothorax. LUNG PARENCHYMA: The lungs are clear. ABDOMEN: The upper abdomen is clear. There is no subphrenic gas. BONES AND SOFT TISSUES: No bone or soft tissue abnormalities are noted. IMPRESSION: LINES AND TUBES ABOVE. NO ACTIVE CARDIOPULMONARY DISEASE.
--- NOTE | 2017-02-12 13:51 | RAD ---
INDICATION: Powerport placement. COMPARISON: There are no prior studies available for comparison. TECHNIQUE: 5.1 seconds of intermittent fluoroscopic guidance were provided and a single spot film of the chest was obtained in the operating room. FINDINGS: There is a powerport central venous catheter present on the right side. The catheter tip projects over the right atrium. IMPRESSION: INTRAOPERATIVE CONTROL FILMS. CPT II Codes: 6045F
--- NOTE | 2017-02-13 04:58 | OP ---
CC: Dr. Johnston; Dr. Rock; Dr. Solano * DATE OF OPERATION: 02/12/17 - [facility] DATE OF : 52 SURGEON: Yasir Calderon MD CORK INSULATOR: None. ANESTHESIOLOGIST: None. ANESTHESIA: General anesthetic. PRE-OP DIAGNOSIS: Small cell carcinoma of the lung. POST-OP DIAGNOSIS: Small cell carcinoma of the lung. OPERATIVE PROCEDURE: Placement of right subclavian 8-[place] PowerPort. DESCRIPTION OF PROCEDURE: The patient was supine on the fluoroscopy table. The right chest and neck region were prepped with antiseptic and draped in a sterile fashion. Local infiltrative anesthesia was administered and approximately 3-cm incision was created at the right subclavian region. Inferior pocket was created. Subclavian venipuncture was carried out. Guidewire passed under fluoroscopic guidance. Catheter measured and cut to 24 cm and attached to the port which was sutured in the pocket with 2-0 Prolene. The pocket was closed with 3-0 and 5-0 Polysorb followed by Steri-Strips. The port was flushed with saline solution and heparinized solution. There was good blood return. He tolerated this well, was brought to Recovery in good condition. No complications. No drains. No pathologic specimens. Sponge and instrument counts correct. Estimated blood loss 10 mL. [id number]/[facility] #: [id number] [facility]
== END 2017-02-12 13:34 | disposition home or self-care (01) ==
LOC: OR 06:41
PROVIDERS: ATTEND Surgery
DX: C34.90 Malignant neoplasm of unspecified part of unspecified bronchus or lung (principal); I25.2 Old myocardial infarction; E78.5 Hyperlipidemia, unspecified; I11.0 Hypertensive heart disease with heart failure; F17.210 Nicotine dependence, cigarettes, uncomplicated; I50.9 Heart failure, unspecified; Z79.02 Long term (current) use of antithrombotics/antiplatelets; Z85.51 Personal history of malignant neoplasm of bladder; Z79.82 Long term (current) use of aspirin; Z88.8 Allergy status to other drugs, medicaments and biological substances; Z95.5 Presence of coronary angioplasty implant and graft
CPT/HCPCS: 71010; 76000; J0690; J1642; J2001

== ENCOUNTER 2017-05-08 16:38 | Observation (INO) | payer MEDICARE ==
[2017-05-08] MEDS ORDERED: NS 0.9% 1000 ML* 1,000 ML IV ONE (17:43)
--- NOTE | 2017-05-08 18:25 | RAD ---
Indication: Shortness of breath. 2 views of the chest including dual energy PA views demonstrates hyperinflated lung valladares. No evidence of alveolar consolidation is noted. No pneumonia is identified. Central line is in place. IMPRESSION: Hyperinflated lung valladares without evidence of active cardiopulmonary disease. No changes noted since April 06, 2017.
[2017-05-08 18:32] LABS: Comments Flag Yes; Hematocrit 21 % (42-52); Hemoglobin 7.6 g/dl (14.0-18.0); Mean Corpuscular HGB Conc 37 g/dl (31-36); Mean Corpuscular Hemoglobin 35 pg (27-31); Mean Corpuscular Volume 94 fL (80-94); Mean Platelet Volume 9 um3 (7.4-10.4); Red Blood Count 2.19 10^6/ul (4.0-5.4); Red Cell Distribution Width 22 % (10.5-15); White Blood Count 2.7 10^3/ul (3.5-10.8)
[2017-05-08 18:34] LABS: Add Diff/Slide Review? Slide Review Added
[2017-05-08 18:44] LABS: Albumin 3.5 g/dL (3.2-5.2); BUN/Creatinine Ratio 7.8 (8-20); C Reactive Protein 52.66 mg/L (< 5.00); Calcium 8.6 mg/dL (8.6-10.3); EGFR African American 64.7 (>60); EGFR Non-African American 50.3 (>60); Globulin 2.8 g/dL (2-4); Potassium 3.6 mmol/L (3.5-5.0); Total Bilirubin 0.4 mg/dL (0.2-1.0); Total Protein 6.3 g/dL (6.4-8.9)
[2017-05-08 18:46] LABS: Troponin I 0.01 ng/mL (<0.04)
[2017-05-08 21:26] LABS: Urine Bacteria Absent (Absent); Urine Bilirubin Negative (Negative); Urine Glucose Negative (Negative); Urine Nitrite Negative (Negative); Urine Sperm Present (Absent)
[2017-05-08] MEDS: Nicotine PATCH 21 MG/24 HR* PATCH TRANSDERM SCH ×2 (23:33→23:37)
[2017-05-09] MEDS ORDERED: Albuterol 2.5 MG/3 ML NEB.SOL* (0.083%) INH PRN (00:35)
[2017-05-09] MEDS ORDERED: traMADol TAB* 50 MG PO PRN (00:35)
[2017-05-09] MEDS ORDERED: Albuterol HFA INHALER* 8 gm MDI INH PRN (00:35)
[2017-05-09] MEDS: Torsemide TAB* 20 MG PO SCH ×3 (02:42→18:12)
[2017-05-09] MEDS: Gabapentin CAP(*) 300 MG PO SCH ×2 (02:42→09:39)
[2017-05-09] MEDS: Carvedilol TAB* 6.25 MG PO SCH ×2 (02:44→09:39)
[2017-05-09] MEDS: Tamsulosin CAP* 0.4 MG PO SCH ×2 (02:44→18:11)
[2017-05-09 08:03] LABS: Comments Flag Yes; Hematocrit 19 % (42-52); Hemoglobin 6.7 g/dl (14.0-18.0); Mean Corpuscular HGB Conc 36 g/dl (31-36); Mean Corpuscular Hemoglobin 33 pg (27-31); Mean Corpuscular Volume 93 fL (80-94); Mean Platelet Volume 9 um3 (7.4-10.4); Red Cell Distribution Width 22 % (10.5-15); White Blood Count 2.3 10^3/ul (3.5-10.8)
[2017-05-09 08:04] LABS: Add Diff/Slide Review? Slide Review Added
[2017-05-09 08:26] LABS: BUN/Creatinine Ratio 10.9 (8-20); Calcium 8.8 mg/dL (8.6-10.3); EGFR African American 72.3 (>60); EGFR Non-African American 56.2 (>60); Potassium 3.3 mmol/L (3.5-5.0)
[2017-05-09] MEDS ORDERED: Magnesium Oxide TAB* 400 MG PO SCH (09:00)
[2017-05-09] MEDS ORDERED: Amiodarone TAB* 200 MG PO SCH (09:00)
[2017-05-09] MEDS ORDERED: Potassium Chlor TAB* 20 MEQ TAB.ER PO SCH (09:00)
[2017-05-09] MEDS ORDERED: Clopidogrel TAB* 75 MG PO SCH (09:00)
[2017-05-09] MEDS ORDERED: Spiriva Inhaler DEVICE* 1 EACH DEVICE INH ONE (09:00)
[2017-05-09] MEDS ORDERED: CMCS: Pantoprazole TAB (NF) 40 MG TAB PO SCH (09:00)
[2017-05-09] MEDS ORDERED: Aspirin EC Low Dose* 81 MG TAB.EC PO SCH (09:00)
[2017-05-09] MEDS ORDERED: Tiotropium CAP.INH* CAP.INH/18 MCG (USE ORDER SET !) INH SCH (09:00)
--- NOTE | 2017-05-09 09:19 | HP ---
H&P (Free Text) History and Physical: PCP: Marc Mcdermott MD Oncology: Samantha Johnston MD Date/Time: 05/08/20171999 CC: SOB HPI: Mr Chen is a 67YO male HX bladder CA, CVA, CHF, COPD, DM2, HTN, HLD presenting with complaint of SOB, labile blood pressure (systolic 80-120s), and light-headedness since awakening this AM. He reports a dry throat and palpitations, but no cough, congestion, chest pain, F/C, sweats, N/V, diarrhea, B/U/F of urine, or open wounds. PMedHx CVA CAD/stent chronic systolic & diastolic HF bladder CA s/p TURBT & BCG PAOD s/p CEA & L fem-pop bypass chronic LLE edema COPD DM2 HTN HLD sciatica GERD BPH Ambulatory Orders Omeprazole CAP* [Prilosec CAP* 20 MG] 20 mg PO QAM 11/28/13 Amiodarone TAB* [Cordarone Tab*] 200 mg PO QAM #0 06/26/16 Atorvastatin* [Lipitor 80 MG*] 80 mg PO BEDTIME #0 06/26/16 Clopidogrel TAB* [Plavix TAB*] 75 mg PO QAM #0 06/26/16 Tamsulosin CAP* [Flomax CAP*] 0.4 mg PO QPM 09/04/16 Ibuprofen TAB* [Motrin TAB* 800 MG] 800 mg PO BID PRN 10/15/16 Torsemide TAB* [Demadex 20 MG*] 40 mg PO QPM 10/15/16 Albuterol 2.5MG/3ML (0.083%)* [Ventolin 2.5 MG/3 ML NEB.TAI*] 2.5 mg INH QID PRN 12/26/16 Aspirin EC Low Dose* [Ecotrin EC Low Dose 81 MG*] 81 mg PO QAM 12/26/16 Carvedilol TAB* [Coreg TAB*] 12.5 mg PO BID 12/26/16 Nitroglycerin TAB 0.4 MG* 0.4 mg SL Q5M PRN 12/26/16 Albuterol HFA INHALER* [Ventolin HFA Inhaler*] 2 puff INH Q4H PRN 04/13/17 Gabapentin CAP(*) [Neurontin 100 mg CAP(*)] 900 mg PO BID 04/13/17 Magnesium Oxide TAB* [MagOx 400 TAB*] 400 mg PO DAILY 04/13/17 Metformin HCl 500 mg PO BID 04/13/17 Potassium Chlor TAB* [Klor Con ER TAB*] 20 meq PO DAILY 04/13/17 Tiotropium CAP.INH* [Spiriva CAP.INH*] 1 cap.inh INH DAILY 04/13/17 Tramadol HCl [Ultram] 50 mg PO QID PRN 04/13/17 Trazodone HCl 100 mg PO BEDTIME 04/13/17 Allergies Bee Venom Allergy (Severe, Verified 04/28/17 14:33) Swelling Of Face,Lips,& Throat Lisinopril Allergy (Severe, Verified 05/04/17 13:31) Swelling Of Face,Lips,& Throat no medical intervention Cat Hair Extract Allergy (Intermediate, Verified 04/28/17 14:33) Wheezing "stuffy, wheezy, eyes itching" VASQUEZ Inhibitors Allergy (Verified 04/28/17 14:33) Unknown Reaction Details PER DR. BALLARD H&P SocHx: 1PPD cigarettes w/ >50PYHX, occasional alcohol, no recreational drugs; single, 2 children; owns a [employer]; full code status FamHx: Mother: age 76 2nd pulmonary embolism; Father: age 55 w / HX CAD & cancer ROS: as above, otherwise reviewed and all were negative vitals: Vital Signs Temp 36.6 C 05/09/17 07:47 Pulse 61 05/09/17 07:47 Resp 16 05/09/17 07:47 BP 117/43 05/09/17 07:47 Pulse Ox 98 05/09/17 07:47 Intake & Output 05/08/17 05/08/17 05/09/17 11:59 23:59 11:59 Intake Total 1000 250 Balance 1000 250 Weight 106.793 kg Intake: IV Fluids 1000 Oral 250 Other: Estimated Void Medium # Bowel Movements 0 # Voids 4 Constitutional: NAD, normally developed, obese white male HEENM: atraumatic; sclera/conjunctiva: anicteric/clear; hearing: clinically intact; oropharynx: clear, mucosa moist Neck: soft tissue: non-tender; thyroid: normal Pulmonary: mild crackles bilateral bases, fair to good aeration, no accessory muscle use CV: RR/RR, normal S1S2, no carotid bruit, no jugular venous distention, 1+ B DP/ PT, 3+ edema LLE, 1+ RLE Abdominal: soft, non-distended, non-tender, no rebound/guarding/rigidity, normoactive bowel sounds, no hepatosplenomegaly or masses, no costovertebral angle tenderness Musculoskeletal: general: grossly intact, no calf tenderness B, negative Karl' s B Integumental: normal appearance and texture of exposed skin Psychiatric orientation: AA&O to PPS affect: calm mood: cooperative eye contact: fair content: reliable responses: timely insight: fair Testing: Lab Results 05/08/17 05/08/17 05/08/17 Range/Units 18:11 18:11 18:11 WBC 2.7 L (3.5-10.8) 10^3/ul RBC 2.19 L (4.0-5.4) 10^6/ul Hgb 7.6 L (14.0-18.0) g/dl Hct 21 L (42-52) % MCV 94 (80-94) fL MCH 35 H (27-31) pg MCHC 37 H (31-36) g/dl RDW 22 H (10.5-15) % Plt Count 49 L (150-450) 10^3/ul MPV 9 (7.4-10.4) um3 Neut % (Auto) 53.7 (38-83) % Lymph % (Auto) 29.1 (25-47) % Archer % (Auto) 16.5 H (1-9) % Eos % (Auto) 0.4 (0-6) % Baso % (Auto) 0.3 (0-2) % Absolute Neuts (auto) 1.4 L (1.5-7.7) 10^3/ul Absolute Lymphs (auto) 0.8 L (1.0-4.8) 10^3/ul Absolute Monos (auto) 0.4 (0-0.8) 10^3/ul Absolute Eos (auto) 0 (0-0.6) 10^3/ul Absolute Basos (auto) 0 (0-0.2) 10^3/ul Absolute Nucleated RBC 0.07 10^3/ul Nucleated RBC % 2.5 INR (Anticoag Therapy) (0.77-1.02) APTT (26.0-36.3) seconds Sodium 131 L (133-145) mmol/L Potassium 3.6 (3.5-5.0) mmol/L Chloride 94 L (101-111) mmol/L Carbon Dioxide 28 (22-32) mmol/L Anion Gap 9 (2-11) mmol/L BUN 11 (6-24) mg/dL Creatinine 1.41 H (0.67-1.17) mg/dL Est GFR ( Amer) 64.7 (>60) Est GFR (Non-Af Amer) 50.3 (>60) BUN/Creatinine Ratio 7.8 L (8-20) Glucose 103 H (70-100) mg/dL Lactic Acid 2.4 H* (0.5-2.0) mmol/L Calcium 8.6 (8.6-10.3) mg/dL Total Bilirubin 0.40 (0.2-1.0) mg/dL AST 15 (13-39) U/L ALT 16 (7-52) U/L Alkaline Phosphatase 150 H (34-104) U/L Total Creatine Kinase 40 (10-223) U/L CK-MB (CK-2) 1.8 (0.6-6.3) ng/mL Troponin I 0.01 (<0.04) ng/mL C-Reactive Protein 52.66 H (< 5.00) mg/L B-Natriuretic Peptide ( - 100) pg/mL Total Protein 6.3 L (6.4-8.9) g/dL Albumin 3.5 (3.2-5.2) g/dL Globulin 2.8 (2-4) g/dL Albumin/Globulin Ratio 1.3 (1-3) Urine Color Urine Appearance Urine pH (5-9) Ur Specific [place] (1.010-1.030) Urine Protein (Negative) Urine Ketones (Negative) Urine Blood (Negative) Urine Nitrate (Negative) Urine Bilirubin (Negative) Urine Urobilinogen (Negative) Ur Leukocyte Esterase (Negative) Urine WBC (Auto) (Absent) Urine RBC (Auto) (Absent) Ur Squamous Epith Cells (Absent) Urine Bacteria (Absent) Hyaline Casts (Absent) Urine Sperm (Absent) Urine Glucose (Negative) Influenza A (Rapid) (Negative) Influenza B (Rapid) (Negative) Blood Type Antibody Screen Crossmatch 05/08/17 05/08/17 05/08/17 Range/Units 18:11 18:11 18:11 WBC (3.5-10.8) 10^3/ul RBC (4.0-5.4) 10^6/ul Hgb (14.0-18.0) g/dl Hct (42-52) % MCV (80-94) fL MCH (27-31) pg MCHC (31-36) g/dl RDW (10.5-15) % Plt Count (150-450) 10^3/ul MPV (7.4-10.4) um3 Neut % (Auto) (38-83) % Lymph % (Auto) (25-47) % Archer % (Auto) (1-9) % Eos % (Auto) (0-6) % Baso % (Auto) (0-2) % Absolute Neuts (auto) (1.5-7.7) 10^3/ul Absolute Lymphs (auto) (1.0-4.8) 10^3/ul Absolute Monos (auto) (0-0.8) 10^3/ul Absolute Eos (auto) (0-0.6) 10^3/ul Absolute Basos (auto) (0-0.2) 10^3/ul Absolute Nucleated RBC 10^3/ul Nucleated RBC % INR (Anticoag Therapy) 0.90 (0.77-1.02) APTT 26.2 (26.0-36.3) seconds Sodium (133-145) mmol/L Potassium (3.5-5.0) mmol/L Chloride (101-111) mmol/L Carbon Dioxide (22-32) mmol/L Anion Gap (2-11) mmol/L BUN (6-24) mg/dL Creatinine (0.67-1.17) mg/dL Est GFR ( Amer) (>60) Est GFR (Non-Af Amer) (>60) BUN/Creatinine Ratio (8-20) Glucose (70-100) mg/dL Lactic Acid (0.5-2.0) mmol/L Calcium (8.6-10.3) mg/dL Total Bilirubin (0.2-1.0) mg/dL AST (13-39) U/L ALT (7-52) U/L Alkaline Phosphatase (34-104) U/L Total Creatine Kinase (10-223) U/L CK-MB (CK-2) (0.6-6.3) ng/mL Troponin I (<0.04) ng/mL C-Reactive Protein (< 5.00) mg/L B-Natriuretic Peptide 205 H ( - 100) pg/mL Total Protein (6.4-8.9) g/dL Albumin (3.2-5.2) g/dL Globulin (2-4) g/dL Albumin/Globulin Ratio (1-3) Urine Color Urine Appearance Urine pH (5-9) Ur Specific Alb[place] (1.010-1.030) Urine Protein (Negative) Urine Ketones (Negative) Urine Blood (Negative) Urine Nitrate (Negative) Urine Bilirubin (Negative) Urine Urobilinogen (Negative) Ur Leukocyte Esterase (Negative) Urine WBC (Auto) (Absent) Urine RBC (Auto) (Absent) Ur Squamous Epith Cells (Absent) Urine Bacteria (Absent) Hyaline Casts (Absent) Urine Sperm (Absent) Urine Glucose (Negative) Influenza A (Rapid) (Negative) Influenza B (Rapid) (Negative) Blood Type A Positive Antibody Screen Negative Crossmatch See Detail 05/08/17 05/09/17 05/09/17 Range/Units 20:48 00:07 01:22 WBC (3.5-10.8) 10^3/ul RBC (4.0-5.4) 10^6/ul Hgb (14.0-18.0) g/dl Hct (42-52) % MCV (80-94) fL MCH (27-31) pg MCHC (31-36) g/dl RDW (10.5-15) % Plt Count (150-450) 10^3/ul MPV (7.4-10.4) um3 Neut % (Auto) (38-83) % Lymph % (Auto) (25-47) % Archer % (Auto) (1-9) % Eos % (Auto) (0-6) % Baso % (Auto) (0-2) % Absolute Neuts (auto) (1.5-7.7) 10^3/ul Absolute Lymphs (auto) (1.0-4.8) 10^3/ul Absolute Monos (auto) (0-0.8) 10^3/ul Absolute Eos (auto) (0-0.6) 10^3/ul Absolute Basos (auto) (0-0.2) 10^3/ul Absolute Nucleated RBC 10^3/ul Nucleated RBC % INR (Anticoag Therapy) (0.77-1.02) APTT (26.0-36.3) seconds Sodium (133-145) mmol/L Potassium (3.5-5.0) mmol/L Chloride (101-111) mmol/L Carbon Dioxide (22-32) mmol/L Anion Gap (2-11) mmol/L BUN (6-24) mg/dL Creatinine (0.67-1.17) mg/dL Est GFR ( Amer) (>60) Est GFR (Non-Af Amer) (>60) BUN/Creatinine Ratio (8-20) Glucose (70-100) mg/dL Lactic Acid 1.5 (0.5-2.0) mmol/L Calcium (8.6-10.3) mg/dL Total Bilirubin (0.2-1.0) mg/dL AST (13-39) U/L ALT (7-52) U/L Alkaline Phosphatase (34-104) U/L Total Creatine Kinase (10-223) U/L CK-MB (CK-2) (0.6-6.3) ng/mL Troponin I (<0.04) ng/mL C-Reactive Protein (< 5.00) mg/L B-Natriuretic Peptide ( - 100) pg/mL Total Protein (6.4-8.9) g/dL Albumin (3.2-5.2) g/dL Globulin (2-4) g/dL Albumin/Globulin Ratio (1-3) Urine Color Yellow Urine Appearance Clear Urine pH 6.0 (5-9) Ur Specific Albion 1.010 (1.010-1.030) Urine Protein Negative (Negative) Urine Ketones Negative (Negative) Urine Blood 1+ H (Negative) Urine Nitrate Negative (Negative) Urine Bilirubin Negative (Negative) Urine Urobilinogen Negative (Negative) Ur Leukocyte Esterase Trace H (Negative) Urine WBC (Auto) 3+(>20/hpf) H (Absent) Urine RBC (Auto) Trace(0-2/hpf) (Absent) Ur Squamous Epith Cells Present H (Absent) Urine Bacteria Absent (Absent) Hyaline Casts Present H (Absent) Urine Sperm Present H (Absent) Urine Glucose Negative (Negative) Influenza A (Rapid) Negative (Negative) Influenza B (Rapid) Negative (Negative) Blood Type Antibody Screen Crossmatch 05/09/17 05/09/17 Range/Units 07:39 07:39 WBC 2.3 L (3.5-10.8) 10^3/ul RBC 2.00 L (4.0-5.4) 10^6/ul Hgb 6.7 L (14.0-18.0) g/dl Hct 19 L (42-52) % MCV 93 (80-94) fL MCH 33 H (27-31) pg MCHC 36 (31-36) g/dl RDW 22 H (10.5-15) % Plt Count 44 L (150-450) 10^3/ul MPV 9 (7.4-10.4) um3 Neut % (Auto) 56.2 (38-83) % Lymph % (Auto) 24.1 L (25-47) % Archer % (Auto) 19.1 H (1-9) % Eos % (Auto) 0.3 (0-6) % Baso % (Auto) 0.3 (0-2) % Absolute Neuts (auto) 1.3 L (1.5-7.7) 10^3/ul Absolute Lymphs (auto) 0.6 L (1.0-4.8) 10^3/ul Absolute Monos (auto) 0.4 (0-0.8) 10^3/ul Absolute Eos (auto) 0 (0-0.6) 10^3/ul Absolute Basos (auto) 0 (0-0.2) 10^3/ul Absolute Nucleated RBC 0.02 10^3/ul Nucleated RBC % 0.8 INR (Anticoag Therapy) (0.77-1.02) APTT (26.0-36.3) seconds Sodium 136 (133-145) mmol/L Potassium 3.3 L (3.5-5.0) mmol/L Chloride 98 L (101-111) mmol/L Carbon Dioxide 31 (22-32) mmol/L Anion Gap 7 (2-11) mmol/L BUN 14 (6-24) mg/dL Creatinine 1.28 H (0.67-1.17) mg/dL Est GFR ( Amer) 72.3 (>60) Est GFR (Non-Af Amer) 56.2 (>60) BUN/Creatinine Ratio 10.9 (8-20) Glucose 105 H (70-100) mg/dL Lactic Acid (0.5-2.0) mmol/L Calcium 8.8 (8.6-10.3) mg/dL Total Bilirubin (0.2-1.0) mg/dL AST (13-39) U/L ALT (7-52) U/L Alkaline Phosphatase (34-104) U/L Total Creatine Kinase (10-223) U/L CK-MB (CK-2) (0.6-6.3) ng/mL Troponin I (<0.04) ng/mL C-Reactive Protein (< 5.00) mg/L B-Natriuretic Peptide ( - 100) pg/mL Total Protein (6.4-8.9) g/dL Albumin (3.2-5.2) g/dL Globulin (2-4) g/dL Albumin/Globulin Ratio (1-3) Urine Color Urine Appearance Urine pH (5-9) Ur Specific [place] (1.010-1.030) Urine Protein (Negative) Urine Ketones (Negative) Urine Blood (Negative) Urine Nitrate (Negative) Urine Bilirubin (Negative) Urine Urobilinogen (Negative) Ur Leukocyte Esterase (Negative) Urine WBC (Auto) (Absent) Urine RBC (Auto) (Absent) Ur Squamous Epith Cells (Absent) Urine Bacteria (Absent) Hyaline Casts (Absent) Urine Sperm (Absent) Urine Glucose (Negative) Influenza A (Rapid) (Negative) Influenza B (Rapid) (Negative) Blood Type Antibody Screen Crossmatch ECG, personally reviewed: NSR rate 77, no ischemia, Q-waves in II/III/AVF CXR, personally reviewed: IMPRESSION: Hyperinflated lung valladares without evidence of active cardiopulmonary disease. No changes noted since April 06, 2017. Impression: 67M presenting with symptomatic anemia DIAGNOSIS & PLAN Primary anemia w/ 2nd SOB & hypotension : transfuse 1unit pRBCs : trend H&H : supplemental oxygen : supportive care Secondary HX CVA : continue aspirin CAD/stent : continue aspirin, clopidogrel chronic systolic & diastolic HF : continue torsemide & carvedilol : daily weights : strict I&Os bladder CA s/p TURBT & BCG : continue outpatient surveillance PAOD s/p CEA & L fem-pop bypass COPD : continue albuterol DM2 : update A1c : consistent carb diet : correctional insulin : hold metformin HTN : continue carvedilol PAOD s/p CEA & L fem-pop bypass HLD : continue atorvastatin : heart healthy diet sciatica : continue gabapentin GERD : continue omeprazole BPH : continue tamsulosin Admission Rational: observation for symptomatic anemia DVTp: SCDs, no anticoagulation in symptomatic anemia Code Status: full HCP: son Nathan
[2017-05-09] MEDS ORDERED: Ibuprofen TAB* 800 MG PO PRN (10:03)
[2017-05-09] MEDS: Nicotine PATCH 21 MG/24 HR* PATCH TRANSDERM SCH (10:04)
[2017-05-09] MEDS ORDERED: Morphine TAB Extended Release (*) 15 MG TAB.ER PO SCH (11:00)
[2017-05-09] MEDS: Insulin LISPRO* 1 UNITS UNIT SUBCUT SCH ×2 (12:24→16:38)
[2017-05-09] MEDS ORDERED: Benzocaine/Menthol LOZ* 1 LOZENGE PO PRN (15:43)
[2017-05-09] MEDS ORDERED: Artificial Tears* 15 ML BTL LEFT EYE PRN (15:43)
--- NOTE | 2017-05-09 16:28 | RAD ---
INDICATION: LEFT lower extremity edema. COMPARISON: No relevant prior exams available on the [facility] PACS for comparison. TECHNIQUE: Mayers scale, color Doppler, and spectral analysis of the deep veins of the LEFT lower extremity. Vessel compression, phasicity, and augmentation assessed. REPORT: The LEFT common femoral, great saphenous, profunda femoral, femoral, popliteal, and posterior tibial veins are patent. The LEFT peroneal veins could not be visualized which may be due to suboptimal acoustic window secondary to body habitus and magnitude of lower extremity edema. Patency of the RIGHT common femoral vein documented. IMPRESSION: 1. No evidence for above-knee LEFT lower extremity deep venous thrombosis. 2. The paired posterior tibial veins of the calf are patent. 3. The paired peroneal calf veins could not be visualized precluding assessment.
[2017-05-09 17:30] VITALS: BP 132/68
[2017-05-09] MEDS ORDERED: traZODone TAB* 100 MG PO SCH (21:00)
[2017-05-09] MEDS ORDERED: Atorvastatin* 80 MG TAB PO SCH (21:00)
[2017-05-09] MEDS ORDERED: Nicotine Patch Removal NOTE FOLLOW UP SCH (21:00)
--- NOTE | 2017-05-10 16:33 | ED ---
Raul Ingram Angela, scribed for Elijah Malik MD on 05/08/17 at 1751 . Dizziness - HPI Summary HPI Summary: This pt is a 67 y/o male presenting to [facility] c/o dizziness, SOB, and hypotension. Pt reports his lowest blood pressure today was 74/46. He additionally c/o LE swelling. He denies fever, chills, diarrhea, cough, abd pain. Pt is here for an evaluation of hypotension. PMHx includes DM, CHF, CAD, COPD, pneumonia, GERD. - History Of Current Complaint Chief Complaint: EDGeneral Stated Complaint: LOW BLOOD PRESSURE Time Seen by Provider: 05/08/17 17:11 Hx Obtained From: Patient Onset/Duration: Still Present Timing: Days Character: Dizzy Associated Signs And Symptoms: Positive: SOB, Other: - POS: hypotension. NEG: fever, chills, diarrhea, cough, abd pain.. Negative: Nausea, Vomiting, Diarrhea - Allergies/Home Medications Allergies/Adverse Reactions: Allergies Allergy/AdvReac Type Severity Reaction Status Date / Time Bee Venom Allergy Severe Swelling Verified 04/28/17 14:33 Of Face,Lips,& Throat Lisinopril Allergy Severe Swelling Verified 05/04/17 13:31 Of Face,Lips,& Throat Cat Hair Extract Allergy Intermediate Wheezing Verified 04/28/17 14:33 VASQUEZ Inhibitors Allergy Unknown Verified 04/28/17 14:33 Reaction Details PMH/Surg Hx/FS Hx/Imm Hx Endocrine/Hematology History: Reports: Hx Anticoagulant Therapy, Hx Diabetes - TYPE II- Denies: Hx Thyroid Disease, Hx Anemia, Hx Unexplained Bleeding Cardiovascular History: Reports: Hx Angina, Hx Angioplasty, Hx Congestive Heart Failure, Hx Coronary Artery Disease - STENT, Hx Embolism, Hx Hypercholesterolemia, Hx Hypertension - ON MEDICATION FOR, CONTROLLED, Hx Peripheral Vascular Disease - HX OF, Other Cardiovascular Problems/Disorders - DR. HALEY Denies: Hx Aneurysm, Hx Auto Implanted Cardiovert Defib, Hx Cardiac Arrest, Hx Myocardial Infarction, Hx Pacemaker/ICD, Hx Valvular Heart Disease Respiratory History: Reports: Hx Chronic Obstructive Pulmonary Disease (COPD), Hx Pneumonia, Hx Pulmonary Edema - HX OF, Hx Sleep Apnea, Other Respiratory Problems/Disorders - possible sleep apnea, "wakes up a lot" Denies: Hx Asthma GI History: Reports: Hx Diverticulosis, Hx Gastroesophageal Reflux Disease - ON DAILY MEDS, Hx Hiatal Hernia, Other GI Disorders - inguinal hernia Denies: Hx Cirrhosis, Hx Crohn's Disease, Hx Gall Bladder Disease, Hx Gastrointestinal Bleed, Hx Irritable Bowel, Hx Jaundice, Hx Obstructive Bowel, Hx Ileostomy, Hx Pyloric Stenosis, Hx Ulcer History: Reports: Hx Benign Prostatic Hyperplasia, Hx Kidney Stones - 1 SMALL , 2006, NOT MOVED, Other Problems/Disorders Denies: Hx Renal Disease Musculoskeletal History: Reports: Hx Arthritis, Hx Back Problems, Hx Scoliosis, Other Musculoskeletal History - arthritis back/SCOLIOSIS Sensory History: Reports: Hx Cataracts - Bilateral, Hx Contacts or Glasses - GLASSES Denies: Hx Eye Injury, Hx Eye Prosthesis, Hx Glaucoma, Hx Legally Blind, Hx Macular Degeneration, Hx Vision Problem, Hx Deafness, Hx Hearing Aid, Hx Hearing Problem, Other Sensory Impairments Opthamlomology History: Reports: Hx Cataracts - Bilateral, Hx Contacts or Glasses - GLASSES Denies: Hx Eye Injury, Hx Eye Prosthesis, Hx Glaucoma, Hx Legally Blind, Hx Macular Degeneration, Hx Vision Problem, Other Sensory Impairments Neurological History: Reports: Hx Nerve Disease Denies: Hx Dementia, Hx Developmental Delay, Hx Headaches, Hx Migraine, Hx Seizures, Hx Spinal Cord Injury, Hx Transient Ischemic Attacks (TIA) Psychiatric History: Reports: Hx Anxiety Denies: Hx Panic Disorder, Hx Substance Abuse - Cancer History Cancer Type, 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 2006 LUMBAR SURGERY [place]. 2005 RIGHT INDEX FINGER REATTACHED [facility] [place]. , 2007 CARDIAC STENT [facility]. 2012 left carotid endarterectomy [facility] [place]. 2013 septoplasty [facility] [place]. 08/2013 LT [facility]. 09/2016- BLADDER SURGERY Hx Anesthesia Reactions: No Infectious Disease History: No Infectious Disease History: Denies: Hx Clostridium Difficile, Hx Hepatitis, Hx Human Immunodeficiency Virus (HIV), Hx of Known/Suspected MRSA, Hx Shingles, Hx Tuberculosis, Hx Known/ Suspected VRE, Hx Known/Suspected VRSA, History Other Infectious Disease, Traveled Outside the in Last 30 Days - Family History Known Family History: Positive: Cardiac Disease - Social History Alcohol Use: Weekly Alcohol Amount: 10 drinks per week Hx Substance Use: No Substance Use Type: Reports: None Hx Tobacco Use: Yes Smoking Status (MU): Current Every Day Smoker Type: Cigarettes Amount Used/How Often: 1 PPD Have You Smoked in the Last Year: Yes Review of Systems Constitutional: Other - hypotension Negative: Fever, Chills Positive: Shortness Of Breath. Negative: Cough Negative: Diarrhea Positive: Edema - in LE Neurological: Other - dizziness All Other Systems Reviewed And Are Negative: Yes Physical Exam - Summary Physical Exam Summary: VITAL SIGNS: Reviewed. GENERAL: Patient is a well-developed and nourished male who is lying comfortable in the stretcher. Patient is not in any acute respiratory distress. HEAD AND FACE: No signs of trauma. No ecchymosis, hematomas or skull depressions. No sinus tenderness. EYES: PERRLA, EOMI x 2, No injected conjunctiva, no nystagmus. EARS: Hearing grossly intact. Ear canals and tympanic membranes are within normal limits. MOUTH: Oropharynx within normal limits. NECK: Supple, trachea is midline, no adenopathy, no JVD, no carotid bruit, no c- spine tenderness, neck with full ROM. CHEST: Symmetric, no tenderness at palpation LUNGS: Some crackles in both bases of the lungs. CVS: Regular rate and rhythm, S1 and S2 present, no murmurs or gallops appreciated. ABDOMEN: Soft, non-tender. No signs of distention. No rebound no guarding, and no masses palpated. Bowel sounds are normal. EXTREMITIES: FROM in all major joints, no cyanosis or clubbing. Swelling on bilateral lower extremities, left > right. NEURO: Alert and oriented x 3. No acute neurological deficits. Speech is normal and follows commands. SKIN: Dry and warm Triage Information Reviewed: Yes Vital Signs On Initial Exam: Initial Vitals Temp Pulse Resp BP Pulse Ox 99.6 F 95 20 108/37 97 05/08/17 16:54 05/08/17 16:54 05/08/17 16:54 05/08/17 16:54 05/08/17 16:54 Vital Signs Reviewed: Yes Diagnostics - Vital Signs Vital Signs Temp Pulse Resp BP Pulse Ox 05/08/17 17:30 89 22 116/53 98 05/08/17 17:06 15 101/45 05/08/17 17:05 23 05/08/17 16:54 99.6 F 95 20 108/37 97 - Laboratory Result Diagrams: 05/08/17 18:11 05/08/17 18:11 Lab Statement: Any lab studies that have been ordered have been reviewed, and results considered in the medical decision making process. - Radiology Chest XR Xray Interpretation: Positive (See Comments) - IMPRESSION: Hyperinflated lung valladares without evidence of active cardiopulmonary disease. No changes noted since April 06, 2017. ED physician has reviewed this radiology report and agrees. Radiology Interpretation Completed By: Radiologist - EKG 1824 Cardiac Rate: NL EKG Rhythm: Sinus Rhythm - at 77 bpm EKG Interpretation: No ST elevation EKG Comparison: No Significant Change - Similar to previous EKG done on . Dizzy Course/Dx - Course Assessment/Plan: This pt is a 67 y/o male presenting to [facility] c/o dizziness, SOB , and hypotension. Pt reports his lowest blood pressure today was 74/46. He additionally c/o LE swelling. He denies fever, chills, diarrhea, cough, abd pain. Pt is here for an evaluation of hypotension. PMHx includes DM, CHF, CAD, COPD, pneumonia, GERD. Test results show WBC of 2.7, hemoglobin of 7.6, hematocrit of 21, sodium of 131, creatinine of 1.41, lactic is 2.4, CRP of 52.6 , BNP of 205, total protein of 6.3. Chest XR is negative for acute pneumonia, however the pt has continued to be hypotensive. The pt was given IV fluids. At this time I discussed the test results and findings with YOVANNY Younger who discussed the case with Dr. Dotson, and accepted the pt for admission. Pt has not been able to give a urine sample at this point. We will test for UTI once he gives the urine sample. Pt is hemodynamically stable, alert and oriented x3. - Diagnoses Provider Diagnoses: Symptomatic hypotension - Provider Notifications Discussed Care Of Patient With: Sohail Hutchison Time Discussed With Above Provider: 19:15 Instructed by Provider To: Other - I discussed the pt's case with YOVANNY Younger who spoke with Dr. Dotson, and accepted the pt for admission. Discharge - Discharge Plan Condition: Stable Disposition: ADMITTED TO [facility] Referrals: Soo Mcdermott MD [Primary Care Provider] - The documentation as recorded by the Raul howard Angela accurately reflects the service I personally performed and the decisions made by me, Elijah Malik MD.
== END 2017-05-09 18:35 | disposition home or self-care (01) ==
LOC: ED 16:38 → MED 20:13
PROVIDERS: ADMIT Hospitalist; ATTEND Internal Medicine Hematology & Oncology
PROC: 30233N1 Transfusion of Nonautologous Red Blood Cells into Peripheral Vein, Percutaneous Approach (ICD-10-PCS; principal; 2017-05-09)
DX: D64.9 Anemia, unspecified (principal); R06.02 Shortness of breath; I95.9 Hypotension, unspecified; Z86.73 Personal history of transient ischemic attack (TIA), and cerebral infarction without residual deficits; I25.10 Atherosclerotic heart disease of native coronary artery without angina pectoris; Z95.5 Presence of coronary angioplasty implant and graft; I11.0 Hypertensive heart disease with heart failure; I50.40 Unspecified combined systolic (congestive) and diastolic (congestive) heart failure; Z85.51 Personal history of malignant neoplasm of bladder; J44.9 Chronic obstructive pulmonary disease, unspecified; E11.9 Type 2 diabetes mellitus without complications; I73.9 Peripheral vascular disease, unspecified; M54.30 Sciatica, unspecified side; K21.9 Gastro-esophageal reflux disease without esophagitis; N40.0 Benign prostatic hyperplasia without lower urinary tract symptoms; Z88.8 Allergy status to other drugs, medicaments and biological substances; Z79.01 Long term (current) use of anticoagulants; Z79.899 Other long term (current) drug therapy; F17.210 Nicotine dependence, cigarettes, uncomplicated
CPT/HCPCS: 36415; 71020; 80048; 80053; 81003; 81015; 82550; 82553; 83036; 83605; 83880; 84484; 85025; 85610; 85730; 86140; 86850; 86900; 86901; 86922; 87040; 87086; 87502; 93005; 94640; 94760; 96372; 99284; A9270-GY; G0378; G8978-GP-CJ; G8979-GP-CJ; G8980-GP-CJ; J1642; P9040

== ENCOUNTER 2017-05-19 17:51 | Inpatient (IN) | payer MEDICARE, OTHER ==
--- NOTE | 2017-05-19 19:20 | RAD ---
INDICATION: Short of breath COMPARISON: May 08, 2017 TECHNIQUE: An AP portable view obtained at 1852 hours is submitted. FINDINGS: Bones/Soft Tissues: There are no acute bony findings. There is a right-sided Imxrxy-i-Yezs catheter terminating in the superior vena cava Cardiomediastinal: The cardiac silhouette is enlarged. Lungs: There are no infiltrates. Pleura: There are no pleural effusions. Other: None IMPRESSION: ENLARGED CARDIAC SILHOUETTE. NO ACTIVE DISEASE.
[2017-05-19 19:25] LABS: Hematocrit 24 % (42-52); Hemoglobin 8.1 g/dl (14.0-18.0); Mean Corpuscular HGB Conc 34 g/dl (31-36); Mean Corpuscular Hemoglobin 33 pg (27-31); Mean Corpuscular Volume 99 fL (80-94); Mean Platelet Volume 9 um3 (7.4-10.4); Red Blood Count 2.43 10^6/ul (4.0-5.4); Red Cell Distribution Width 28 % (10.5-15); White Blood Count 8.5 10^3/ul (3.5-10.8)
[2017-05-19 19:26] LABS: Add Diff/Slide Review? Slide Review Added; Comments Flag Yes
[2017-05-19 19:46] LABS: Troponin I 0.16 ng/mL (<0.04)
[2017-05-19 19:48] LABS: Albumin 3.1 g/dL (3.2-5.2); BUN/Creatinine Ratio 11.1 (8-20); Calcium 8.3 mg/dL (8.6-10.3); EGFR African American 80.2 (>60); EGFR Non-African American 62.4 (>60); Globulin 2.4 g/dL (2-4); Potassium 4.3 mmol/L (3.5-5.0); Total Bilirubin 0.3 mg/dL (0.2-1.0); Total Protein 5.5 g/dL (6.4-8.9)
[2017-05-19 19:53] LABS: Urine Bilirubin Negative (Negative); Urine Glucose Negative (Negative); Urine Nitrite Negative (Negative)
--- NOTE | 2017-05-19 21:49 | HP ---
H&P (Free Text) History and Physical: PCP: Marc Mcdermott MD Oncology: Samantha Johnston MD Date/Time: 05/19/20172014 CC: SOB HPI: Mr Chen is a 67YO male HX bladder CA, CVA, CHF, COPD, DM2, HTN, HLD presenting with complaint of increasing SOB [place] [facility] [place]B 2nd amemia for which he received 2 units pRBCs. Since discharge he reports being concerned about low blood pressures and so has skipped about half of his doses of 40mg torsemide daily resulting in a 7kg weight gain associated with increased fatigue. Additionally he reports an episode of non-exertional chest pressure lasting 1-2 hours yesterday radiating into his RUE, but without acute increased SOB, nausea, sweating, palpitations, or light-headedness. He does state this is similar to his previous anginal pain. He is pain free at this time. PMedHx CVA CAD/stent chronic systolic & diastolic HF bladder CA s/p TURBT & BCG PAOD s/p CEA & L fem-pop bypass chronic LLE edema COPD DM2 HTN HLD sciatica GERD BPH Ambulatory Orders Nursing to reconcile. Omeprazole CAP* [Prilosec CAP* 20 MG] 20 mg PO QAM 11/28/13 Amiodarone TAB* [Cordarone Tab*] 200 mg PO QAM #0 06/26/16 Atorvastatin* [Lipitor 80 MG*] 80 mg PO BEDTIME #0 06/26/16 Clopidogrel TAB* [Plavix TAB*] 75 mg PO QAM #0 06/26/16 Tamsulosin CAP* [Flomax CAP*] 0.4 mg PO QPM 09/04/16 Ibuprofen TAB* [Motrin TAB* 800 MG] 800 mg PO BID PRN 10/15/16 Torsemide TAB* [Demadex 20 MG*] 40 mg PO QPM 10/15/16 Albuterol 2.5MG/3ML (0.083%)* [Ventolin 2.5 MG/3 ML NEB.TAI*] 2.5 mg INH QID PRN 12/26/16 Aspirin EC Low Dose* [Ecotrin EC Low Dose 81 MG*] 81 mg PO QAM 12/26/16 Carvedilol TAB* [Coreg TAB*] 12.5 mg PO BID 12/26/16 Nitroglycerin TAB 0.4 MG* 0.4 mg SL Q5M PRN 12/26/16 Albuterol HFA INHALER* [Ventolin HFA Inhaler*] 2 puff INH Q4H PRN 04/13/17 Gabapentin CAP(*) [Neurontin 100 mg CAP(*)] 900 mg PO BID 04/13/17 Magnesium Oxide TAB* [MagOx 400 TAB*] 400 mg PO DAILY 04/13/17 Potassium Chlor TAB* [Potassium Chlor TAB 20 MEQ*] 20 meq PO DAILY 04/13/17 Tiotropium CAP.INH* [Spiriva CAP.INH*] 1 cap.inh INH DAILY 04/13/17 Trazodone HCl 100 mg PO BEDTIME 04/13/17 HYDROcodone/ACETAMIN 5-325 MG* [[place] 5-325 TAB*] 1 tab PO BID PRN 05/14/17 Morphine Sulfate [Ms Contin] 15 mg PO TID 05/14/17 metFORMIN* [Glucophage 500 MG TAB *] 500 mg PO BID 05/19/17 traMADol TAB* [Ultram*] 50 mg PO Q6HR PRN 05/19/17 Allergies Bee Venom Allergy (Severe, Verified 05/19/17 18:01) Swelling Of Face,Lips,& Throat Lisinopril Allergy (Severe, Verified 05/19/17 18:01) Swelling Of Face,Lips,& Throat no medical intervention Cat Hair Extract Allergy (Intermediate, Verified 05/19/17 18:01) Wheezing "stuffy, wheezy, eyes itching" VASQUEZ Inhibitors Allergy (Verified 05/19/17 18:01) Unknown Reaction Details PER DR. BALLARD H&P SocHx: 1PPD cigarettes w/ >50PYHX, occasional alcohol, no recreational drugs; single, 2 children; owns a [employer]; full code status FamHx: Mother: age 76 2nd pulmonary embolism; Father: age 55 w / HX CAD & cancer ROS: as above, otherwise reviewed and all were negative vitals: Vital Signs Temp 36.9 C 05/19/17 17:51 Pulse 83 05/19/17 21:00 Resp 18 05/19/17 21:00 BP 116/84 05/19/17 21:00 Pulse Ox 96 05/19/17 21:31 Intake & Output 05/18/17 05/19/17 05/19/17 23:59 11:59 23:59 Weight 113.398 kg Constitutional: NAD, normally developed, obese white male HEENM: atraumatic; sclera/conjunctiva: anicteric/clear; hearing: clinically intact; oropharynx: clear, mucosa moist Neck: soft tissue: non-tender; thyroid: normal Pulmonary: B baird-inspiratory/expiratory wheeze with mid- to end-expiratory rhonchi, fair to good aeration, no accessory muscle use CV: RR/RR, normal S1S2, no carotid bruit, no jugular venous distention, 1+ B DP/ PT, 3+ edema LLE, 2+ RLE Abdominal: soft, non-distended, non-tender, no rebound/guarding/rigidity, normoactive bowel sounds, no hepatosplenomegaly or masses, no costovertebral angle tenderness Musculoskeletal: general: grossly intact, no calf tenderness B, negative Karl' s B Integumental: normal appearance and texture of exposed skin Psychiatric orientation: AA&O to PPS affect: calm mood: cooperative eye contact: fair content: reliable responses: timely insight: fair Testing: Lab Results 05/19/17 05/19/17 05/19/17 Range/Units 18:31 19:16 19:16 WBC 8.5 (3.5-10.8) 10^3/ul RBC 2.43 L (4.0-5.4) 10^6/ul Hgb 8.1 L (14.0-18.0) g/dl Hct 24 L (42-52) % MCV 99 H (80-94) fL MCH 33 H (27-31) pg MCHC 34 (31-36) g/dl RDW 28 H (10.5-15) % Plt Count 144 L (150-450) 10^3/ul MPV 9 (7.4-10.4) um3 Neut % (Auto) 89.0 H (38-83) % Lymph % (Auto) 2.7 L (25-47) % [place] % (Auto) 6.9 (1-9) % Eos % (Auto) 0 (0-6) % Baso % (Auto) 1.4 (0-2) % Absolute Neuts (auto) 7.6 (1.5-7.7) 10^3/ul Absolute Lymphs (auto) 0.2 L (1.0-4.8) 10^3/ul Absolute Monos (auto) 0.6 (0-0.8) 10^3/ul Absolute Eos (auto) 0 (0-0.6) 10^3/ul Absolute Basos (auto) 0.1 (0-0.2) 10^3/ul Absolute Nucleated RBC 0.02 10^3/ul Nucleated RBC % 0.3 Sodium (133-145) mmol/L Potassium (3.5-5.0) mmol/L Chloride (101-111) mmol/L Carbon Dioxide (22-32) mmol/L Anion Gap (2-11) mmol/L BUN (6-24) mg/dL Creatinine (0.67-1.17) mg/dL Est GFR ( Amer) (>60) Est GFR (Non-Af Amer) (>60) BUN/Creatinine Ratio (8-20) Glucose (70-100) mg/dL Lactic Acid (0.5-2.0) mmol/L Calcium (8.6-10.3) mg/dL Total Bilirubin (0.2-1.0) mg/dL AST (13-39) U/L ALT (7-52) U/L Alkaline Phosphatase (34-104) U/L Troponin I (<0.04) ng/mL B-Natriuretic Peptide 420 H ( - 100) pg/mL Total Protein (6.4-8.9) g/dL Albumin (3.2-5.2) g/dL Globulin (2-4) g/dL Albumin/Globulin Ratio (1-3) Urine Color Straw Urine Appearance Clear Urine pH 5.0 (5-9) Ur Specific [place] 1.006 L (1.010-1.030) Urine Protein Negative (Negative) Urine Ketones Negative (Negative) Urine Blood Negative (Negative) Urine Nitrate Negative (Negative) Urine Bilirubin Negative (Negative) Urine Urobilinogen Negative (Negative) Ur Leukocyte Esterase Negative (Negative) Urine Glucose Negative (Negative) 05/19/17 05/19/17 Range/Units 19:16 19:16 WBC (3.5-10.8) 10^3/ul RBC (4.0-5.4) 10^6/ul Hgb (14.0-18.0) g/dl Hct (42-52) % MCV (80-94) fL MCH (27-31) pg MCHC (31-36) g/dl RDW (10.5-15) % Plt Count (150-450) 10^3/ul MPV (7.4-10.4) um3 Neut % (Auto) (38-83) % Lymph % (Auto) (25-47) % [place] % (Auto) (1-9) % Eos % (Auto) (0-6) % Baso % (Auto) (0-2) % Absolute Neuts (auto) (1.5-7.7) 10^3/ul Absolute Lymphs (auto) (1.0-4.8) 10^3/ul Absolute Monos (auto) (0-0.8) 10^3/ul Absolute Eos (auto) (0-0.6) 10^3/ul Absolute Basos (auto) (0-0.2) 10^3/ul Absolute Nucleated RBC 10^3/ul Nucleated RBC % Sodium 133 (133-145) mmol/L Potassium 4.3 (3.5-5.0) mmol/L Chloride 100 L (101-111) mmol/L Carbon Dioxide 26 (22-32) mmol/L Anion Gap 7 (2-11) mmol/L BUN 13 (6-24) mg/dL Creatinine 1.17 (0.67-1.17) mg/dL Est GFR ( Amer) 80.2 (>60) Est GFR (Non-Af Amer) 62.4 (>60) BUN/Creatinine Ratio 11.1 (8-20) Glucose 184 H (70-100) mg/dL Lactic Acid 2.6 H* (0.5-2.0) mmol/L Calcium 8.3 L (8.6-10.3) mg/dL Total Bilirubin 0.30 (0.2-1.0) mg/dL AST 15 (13-39) U/L ALT 11 (7-52) U/L Alkaline Phosphatase 110 H (34-104) U/L Troponin I 0.16 H* (<0.04) ng/mL B-Natriuretic Peptide ( - 100) pg/mL Total Protein 5.5 L (6.4-8.9) g/dL Albumin 3.1 L (3.2-5.2) g/dL Globulin 2.4 (2-4) g/dL Albumin/Globulin Ratio 1.3 (1-3) Urine Color Urine Appearance Urine pH (5-9) Ur Specific [place] (1.010-1.030) Urine Protein (Negative) Urine Ketones (Negative) Urine Blood (Negative) Urine Nitrate (Negative) Urine Bilirubin (Negative) Urine Urobilinogen (Negative) Ur Leukocyte Esterase (Negative) Urine Glucose (Negative) ECG, personally reviewed: sinus RBBB rate 85, no ischemia, Q-waves II/III/AVF CXR, personally reviewed: IMPRESSION: ENLARGED CARDIAC SILHOUETTE. NO ACTIVE DISEASE. Impression: 67M presenting with symptomatic anemia DIAGNOSIS & PLAN Primary acute on chronic systolic & diastolic HF 2nd medication non-adherence : importance of adherence stressed : furosemide diuresis : strict I&Os : daily weights : low sodium diet : supplemental oxygen : supportive care chest pain r/o ACS : elevated troponin, suspect 2nd demand ischemia : telemetry : trend troponin : supplemental oxygen : supportive care Secondary DM2 : A1c 8.02 May 2017 : consistent carb diet : correctional insulin : hold metformin CAD/stent : continue aspirin, clopidogrel PAOD s/p CEA & L fem-pop bypass HLD : continue atorvastatin : heart healthy diet HX CVA : continue aspirin bladder CA s/p TURBT & BCG : continue outpatient surveillance COPD : continue albuterol : smoking cessation recommended, low motivation HTN : continue carvedilol sciatica : continue gabapentin GERD : continue omeprazole BPH : continue tamsulosin Admission Rational: observation for acute on chronic systolic & diastolic HF DVTp: SCDs, no anticoagulation 2nd anemia requiring recent transfusion Code Status: full HCP: Nathan mcnair
--- NOTE | 2017-05-19 22:15 | ED ---
Ryan Ingram Julia, scribed for Artemio Taylor MD on 05/19/17 at 1934 . Shortness of Breath - HPI Summary HPI Summary: This patient is a 67 year old M [facility] [place] by with a chief complaint of SOB since last night. Patient reports chest pain (burning and pressure), cough, and weight gain. Symptoms are aggravated by exertion and are alleviated by nothing. Patient uses nebulizer and O2 at home. - History of Current Complaint Chief Complaint: EDShortnessOfBreath Time Seen by Provider: 05/19/17 18:04 Hx Obtained From: Patient, Family/Banquet Captain Onset/Duration: Lasting Days - since last evening, Still Present Aggrevating Factors: Other - exertion Alleviating Factors: Nothing Associated Signs & Symptoms: Chest Pain w/Cough - Allergy/Home Medications Allergies/Adverse Reactions: Allergies Allergy/AdvReac Type Severity Reaction Status Date / Time Bee Venom Allergy Severe Swelling Verified 05/19/17 18:01 Of Face,Lips,& Throat Lisinopril Allergy Severe Swelling Verified 05/19/17 18:01 Of Face,Lips,& Throat Cat Hair Extract Allergy Intermediate Wheezing Verified 05/19/17 18:01 VASQUEZ Inhibitors Allergy Unknown Verified 05/19/17 18:01 Reaction Details Home Medications: Home Medications metFORMIN* [Glucophage 500 MG TAB *] 500 mg PO BID 05/19/17 [History Confirmed 05/19/17] traMADol TAB* [Ultram*] 50 mg PO Q6HR PRN 05/19/17 [History Confirmed 05/19/17] PMH/Surg Hx/FS Hx/Imm Hx Endocrine/Hematology History: Reports: Hx Anticoagulant Therapy, Hx Diabetes - TYPE II- Denies: Hx Thyroid Disease, Hx Anemia, Hx Unexplained Bleeding Cardiovascular History: Reports: Hx Angina, Hx Angioplasty, Hx Congestive Heart Failure, Hx Coronary Artery Disease - STENT, Hx Embolism, Hx Hypercholesterolemia, Hx Hypertension - ON MEDICATION FOR, CONTROLLED, Hx Peripheral Vascular Disease - HX OF, Other Cardiovascular Problems/Disorders - DR. HALEY Denies: Hx Aneurysm, Hx Auto Implanted Cardiovert Defib, Hx Cardiac Arrest, Hx Myocardial Infarction, Hx Pacemaker/ICD, Hx Valvular Heart Disease Respiratory History: Reports: Hx Chronic Obstructive Pulmonary Disease (COPD), Hx Pneumonia, Hx Pulmonary Edema - HX OF, Hx Sleep Apnea, Other Respiratory Problems/Disorders - possible sleep apnea, "wakes up a lot" Denies: Hx Asthma GI History: Reports: Hx Diverticulosis, Hx Gastroesophageal Reflux Disease - ON DAILY MEDS, Hx Hiatal Hernia, Other GI Disorders - inguinal hernia Denies: Hx Cirrhosis, Hx Crohn's Disease, Hx Gall Bladder Disease, Hx Gastrointestinal Bleed, Hx Irritable Bowel, Hx Jaundice, Hx Obstructive Bowel, Hx Ileostomy, Hx Pyloric Stenosis, Hx Ulcer History: Reports: Hx Benign Prostatic Hyperplasia, Hx Kidney Stones - 1 SMALL , 2005, NOT MOVED, Other Problems/Disorders Denies: Hx Renal Disease Musculoskeletal History: Reports: Hx Arthritis, Hx Back Problems, Hx Scoliosis, Other Musculoskeletal History - arthritis back/SCOLIOSIS Sensory History: Reports: Hx Cataracts - Bilateral, Hx Contacts or Glasses - GLASSES Denies: Hx Eye Injury, Hx Eye Prosthesis, Hx Glaucoma, Hx Legally Blind, Hx Macular Degeneration, Hx Vision Problem, Hx Deafness, Hx Hearing Aid, Hx Hearing Problem, Other Sensory Impairments Opthamlomology History: Reports: Hx Cataracts - Bilateral, Hx Contacts or Glasses - GLASSES Denies: Hx Eye Injury, Hx Eye Prosthesis, Hx Glaucoma, Hx Legally Blind, Hx Macular Degeneration, Hx Vision Problem, Other Sensory Impairments Neurological History: Reports: Hx Nerve Disease Denies: Hx Dementia, Hx Developmental Delay, Hx Headaches, Hx Migraine, Hx Seizures, Hx Spinal Cord Injury, Hx Transient Ischemic Attacks (TIA) Psychiatric History: Reports: Hx Anxiety Denies: Hx Panic Disorder, Hx Substance Abuse - Cancer History Cancer Type, Location and Year: BLADDER; Small Cell CA of Lungs Hx Chemotherapy: Yes - current with last treatment 2 weeks ago Hx Radiation Therapy: Yes - 2 weeks ago - Surgical History Surgery Procedure, Year, and Place: 2011 & 2012 BLADDER CANCER [facility] [place]. 2006 LUMBAR SURGERY [place]. 2006 RIGHT INDEX FINGER REATTACHED [facility] [place]. , 2007 C[facility]AC STENT [facility]. 2013 left carotid endarterectomy [facility] [place]. 2013 septoplasty [facility] [place]. 08/2013 LT FEMERAL BYPASS [facility]. 09/2016- BLADDER SURGERY Hx Anesthesia Reactions: No Infectious Disease History: No Infectious Disease History: Denies: Hx Clostridium Difficile, Hx Hepatitis, Hx Human Immunodeficiency Virus (HIV), Hx of Known/Suspected MRSA, Hx Shingles, Hx Tuberculosis, Hx Known/ Suspected VRE, Hx Known/Suspected VRSA, History Other Infectious Disease, Traveled Outside the in Last 30 Days - Family History Known Family History: Positive: Cardiac Disease - Social History Alcohol Use: Occasionally Alcohol Amount: 10 drinks per week Hx Substance Use: No Substance Use Type: Reports: None Hx Tobacco Use: Yes Smoking Status (MU): Heavy Every Day Tobacco Smoker Type: Cigarettes Amount Used/How Often: 1 PPD Have You Smoked in the Last Year: Yes Review of Systems Constitutional: Other - weight gain Positive: Chest Pain Positive: Shortness Of Breath, Cough All Other Systems Reviewed And Are Negative: Yes Physical Exam - Summary Physical Exam Summary: Appearance: The patient is well-nourished in no acute distress and in no acute pain. Skin: The skin is warm and dry and skin color reflects adequate perfusion. HEENT: The head is normocephalic and atraumatic. The pupils are equal and reactive. The conjunctivae are clear and without drainage. Nares are patent and without drainage. Mouth reveals moist mucous membranes and the throat is without erythema and exudate. The external ears are intact. The ear canals are patent and without drainage. The tympanic membranes are intact. Neck: the neck is supple with full range of motion and non-tender. There are no carotid bruits. There is no neck vein distension. Respiratory: Chest is non-tender. Patient has expiratory wheezes and tacypnea Cardiovascular: Heart is regular rate and rhythm. There is no murmur or rub auscultated. There is peripheral edema. Pulses are symmetrical and equal. Abdomen: The abdomen is soft and non-tender. There are normal bowel sounds heard in all four quadrants and there is no organomegaly palpated. Musculoskeletal: There is no back tenderness noted. Extremities are non-tender with full range of motion. There is good capillary refill. There is peripheral edema. No calf tenderness elicited. Neurological: Patient is alert and oriented to person, place and time. The patient has symmetrical motor strength in all four extremities. Cranial nerves are grossly intact. Deep tendon reflexes are symmetrical and equal in all four extremities. Psychiatric: The patient has an appropriate affect and does not exhibit any anxiety or depression. Triage Information Reviewed: Yes Vital Signs On Initial Exam: Initial Vitals Temp Pulse Resp BP Pulse Ox 98.4 F 100 20 131/55 93 05/19/17 17:51 05/19/17 17:51 05/19/17 17:51 05/19/17 17:51 05/19/17 17:51 Vital Signs Reviewed: Yes Respiratory/Lung Sounds: Positive: Wheezes - expiratory, Other - tacypnea Cardiovascular: Positive: Other - periphreal edema - [place] Coma Scale Coma Scale Total: 15 Diagnostics - Vital Signs Vital Signs Temp Pulse Resp BP Pulse Ox 05/19/17 19:00 86 20 91 05/19/17 18:47 93 05/19/17 18:30 90 22 119/93 93 05/19/17 18:14 102 92 05/19/17 18:13 134/50 05/19/17 17:51 98.4 F 100 20 131/55 93 - Laboratory Lab Results: Lab Results 05/19/17 Range/Units 19:16 WBC 8.5 (3.5-10.8) 10^3/ul RBC 2.43 L (4.0-5.4) 10^6/ul Hgb 8.1 L (14.0-18.0) g/dl Hct 24 L (42-52) % MCV 99 H (80-94) fL MCH 33 H (27-31) pg MCHC 34 (31-36) g/dl RDW 28 H (10.5-15) % Plt Count 144 L (150-450) 10^3/ul MPV 9 (7.4-10.4) um3 Neut % (Auto) 89.0 H (38-83) % Lymph % (Auto) 2.7 L (25-47) % [place] % (Auto) 6.9 (1-9) % Eos % (Auto) 0 (0-6) % Baso % (Auto) 1.4 (0-2) % Absolute Neuts (auto) 7.6 (1.5-7.7) 10^3/ul Absolute Lymphs (auto) 0.2 L (1.0-4.8) 10^3/ul Absolute Monos (auto) 0.6 (0-0.8) 10^3/ul Absolute Eos (auto) 0 (0-0.6) 10^3/ul Absolute Basos (auto) 0.1 (0-0.2) 10^3/ul Absolute Nucleated RBC 0.02 10^3/ul Nucleated RBC % 0.3 Result Diagrams: 05/19/17 19:16 05/19/17 19:16 Lab Statement: Any lab studies that have been ordered have been reviewed, and results considered in the medical decision making process. - Radiology Chest XR Radiology Interpretation Completed By: Radiologist - ENLARGED CARDIAC SILHOUETTE. NO ACTIVE DISEASE. ED Physician has reviewed this report. - EKG 1929 Cardiac Rate: NL EKG Rhythm: Sinus Rhythm - 85 BPM EKG Comparison: No Significant Change - 05/08/17 Course/Dx - Course Course Of Treatment: Mr. Chen came in for SOB and a 6 pound weight gain over the last 24 hours. He was found to have an elevated trop and BNP but no clincal evidence for CHF. He is being admitted to the hospitalist for diuresis. - Diagnoses Provider Diagnoses: CHF (congestive heart failure) - Physician Notifications Discussed Care of Patient With: Dawit Dotson Time Discussed With Above Provider: 20:02 Instructed by Provider To: Other - Consulted Dr. Dotson (hospitalist) at 2001 who agrees to admit. Discharge - Discharge Plan Condition: Stable Disposition: ADMITTED TO [facility] Referrals: Soo Mcdermott MD [Primary Care Provider] - The documentation as recorded by the Ryan howard Julia accurately reflects the service I personally performed and the decisions made by me, Artemio Taylor MD.
[2017-05-19] MEDS ORDERED: Melatonin (NF) 3 MG TAB PO PRN (22:37)
[2017-05-19] MEDS ORDERED: Furosemide IV* 10 MG/ML 10 ML VIAL (100 MG) IV ONE (22:37)
[2017-05-19] MEDS ORDERED: Nicotine Inhaler* 10 MG AMP INH PRN (22:37)
[2017-05-19] MEDS ORDERED: Acetaminophen TAB* 325 MG PO PRN (22:37)
[2017-05-19] MEDS ORDERED: Ondansetron INJ* 2 MG/ML VIAL IV PRN (22:37)
[2017-05-19] MEDS ORDERED: Albuterol HFA INHALER* 8 gm MDI INH PRN (22:47)
[2017-05-19] MEDS ORDERED: Albuterol 2.5 MG/3 ML NEB.SOL* (0.083%) INH PRN (22:47)
[2017-05-19] MEDS ORDERED: traMADol TAB* 50 MG PO PRN (22:47)
[2017-05-20] MEDS: Albuterol 2.5 MG/3 ML NEB.SOL* (0.083%) INH PRN (01:25)
[2017-05-20] MEDS: HYDROcodone/ACETAMIN 5-325 MG* 1 TAB PO PRN ×2 (02:55→16:37)
[2017-05-20] MEDS: traZODone TAB* 100 MG PO SCH ×2 (03:44→23:02)
[2017-05-20 05:37] LABS: Comments Flag Yes; Hematocrit 25 % (42-52); Hemoglobin 8.2 g/dl (14.0-18.0); Mean Corpuscular HGB Conc 33 g/dl (31-36); Mean Corpuscular Hemoglobin 33 pg (27-31); Mean Corpuscular Volume 99 fL (80-94); Mean Platelet Volume 9 um3 (7.4-10.4); Red Blood Count 2.47 10^6/ul (4.0-5.4); White Blood Count 8.9 10^3/ul (3.5-10.8)
[2017-05-20 05:39] LABS: Red Cell Distribution Width 28 % (10.5-15)
[2017-05-20 05:52] LABS: BUN/Creatinine Ratio 14.9 (8-20); Calcium 8.3 mg/dL (8.6-10.3); EGFR African American 77.2 (>60); Potassium 4.3 mmol/L (3.5-5.0)
[2017-05-20] MEDS ORDERED: Omeprazole CAP* 20 MG PO SCH (06:00)
[2017-05-20 06:34] LABS: Troponin I 0.23 ng/mL (<0.04)
[2017-05-20] MEDS: Insulin LISPRO* 1 UNITS UNIT SUBCUT SCH ×4 (07:51→20:32)
[2017-05-20] MEDS: Gabapentin CAP(*) 300 MG PO SCH ×2 (08:10→20:30)
[2017-05-20] MEDS: Furosemide IV* 10 MG/ML 10 ML VIAL (100 MG) IV SCH ×2 (08:10→12:29)
[2017-05-20] MEDS: Clopidogrel TAB* 75 MG PO SCH (08:10)
[2017-05-20] MEDS: Amiodarone TAB* 200 MG PO SCH (08:10)
[2017-05-20] MEDS: Aspirin EC Low Dose* 81 MG TAB.EC PO SCH (08:10)
[2017-05-20] MEDS: Docusate CAP* 100 MG PO SCH ×2 (08:10→20:31)
[2017-05-20] MEDS: Carvedilol TAB* 6.25 MG PO SCH ×2 (08:10→20:30)
[2017-05-20] MEDS: Magnesium Oxide TAB* 400 MG PO SCH (08:11)
[2017-05-20] MEDS: Morphine TAB Extended Release (*) 15 MG TAB.ER PO SCH ×3 (08:11→23:02)
[2017-05-20] MEDS: CMCS Pantoprazole TAB (NF) 40 MG TAB PO SCH (08:11)
[2017-05-20] MEDS: Potassium Chlor TAB* 20 MEQ TAB.ER PO SCH (08:11)
[2017-05-20] MEDS: Tiotropium CAP.INH* CAP.INH/18 MCG (USE ORDER SET !) INH SCH (08:46)
[2017-05-20] MEDS ORDERED: Spiriva Inhaler DEVICE* 1 EACH DEVICE INH ONE (09:00)
[2017-05-20] MEDS ORDERED: Nicotine PATCH 21 MG/24 HR* PATCH TRANSDERM ONE (10:30)
[2017-05-20] MEDS: Ibuprofen TAB* 800 MG PO SCH ×2 (10:41→20:31)
[2017-05-20] MEDS ORDERED: Dexamethasone IV* 4 MG/ML 1 ML (4 MG) IV SLOW PU ONE (14:00)
[2017-05-20] MEDS ORDERED: NS 0.9% IVPB ONE (14:15)
[2017-05-20] MEDS ORDERED: ETOPOSIDE IVPB ONE (14:15)
[2017-05-20] MEDS ORDERED: Tamsulosin CAP* 0.4 MG PO SCH (18:00)
[2017-05-20] MEDS ORDERED: Atorvastatin* 80 MG TAB PO SCH (21:00)
[2017-05-20] MEDS ORDERED: traZODone TAB* 100 MG PO SCH (21:00)
[2017-05-20] MEDS ORDERED: Nicotine Patch Removal NOTE PATCH OFF ONE (22:30)
[2017-05-21] MEDS: Albuterol 2.5 MG/3 ML NEB.SOL* (0.083%) INH PRN (03:56)
[2017-05-21 07:57] LABS: BUN/Creatinine Ratio 25.3 (8-20); Calcium 8.4 mg/dL (8.6-10.3); EGFR African American 97.3 (>60); EGFR Non-African American 75.6 (>60); Potassium 4.5 mmol/L (3.5-5.0)
[2017-05-21 08:09] VITALS: BP 134/71
[2017-05-21 08:10] LABS: Troponin I 0.1 ng/mL (<0.04)
[2017-05-21] MEDS ORDERED: Furosemide IV* 10 MG/ML 10 ML VIAL (100 MG) IV SCH (09:00)
[2017-05-21] MEDS: Tiotropium CAP.INH* CAP.INH/18 MCG (USE ORDER SET !) INH SCH (09:19)
[2017-05-21] MEDS: Insulin LISPRO* 1 UNITS UNIT SUBCUT SCH ×2 (09:19→11:59)
[2017-05-21] MEDS: Aspirin EC Low Dose* 81 MG TAB.EC PO SCH (09:30)
[2017-05-21] MEDS: Gabapentin CAP(*) 300 MG PO SCH (09:30)
[2017-05-21] MEDS: Morphine TAB Extended Release (*) 15 MG TAB.ER PO SCH (09:30)
[2017-05-21] MEDS: Amiodarone TAB* 200 MG PO SCH (09:30)
[2017-05-21] MEDS: Potassium Chlor TAB* 20 MEQ TAB.ER PO SCH (09:31)
[2017-05-21] MEDS: Magnesium Oxide TAB* 400 MG PO SCH (09:31)
[2017-05-21] MEDS: Docusate CAP* 100 MG PO SCH (09:31)
[2017-05-21] MEDS: Clopidogrel TAB* 75 MG PO SCH (09:31)
[2017-05-21] MEDS: Carvedilol TAB* 6.25 MG PO SCH (09:31)
[2017-05-21] MEDS: Ibuprofen TAB* 800 MG PO SCH (09:31)
[2017-05-21] MEDS: CMCS Pantoprazole TAB (NF) 40 MG TAB PO SCH (09:31)
--- NOTE | 2017-05-21 12:09 | DS ---
- Discharge Summary Admission Date: 05/19/17 Discharge Date: 05/21/17 Discharged Diagnosis: 1. CHF Exacerbation: resolved with diuretics, pt. to resume normal meds 2. COPD: stable 3. DM II: stable, resume PO home meds 4. SCLC: C5D4, counts stable and will repeat labs 05/29 Discharge Medications: 1. Docusate Sodium 200 mg PO BID PRN constipation 2. Omeprazole 20 mg PO qAM 3. Atorvastatin 80 mg PO qHS 4. Amiodarone 200 mg PO qAM 5. Clopidogrel 75 mg PO qAM 6. Tamsulosin 0.4 mg PO qPM 7. Torsemide 40 mg PO daily 8. Albuterol 2.5mg/3mL neb inh QID PRN SOB 9. Aspirin 81 mg PO daily 10. Nitro 0.4 mg SL q5min PRN chest pain 11. Carvedilol 12.5 mg PO BID 12. Tiotropium 1 cap inh daily 13. Gabapentin 900 mg PO BID 14. Albuterol HFA 2 puff inh q4hrs pRN wheezing 15. Potassium 20 mEq PO daily 16. Trazodone 100 mg PO qHS 17. Magnesium Oxide 400 mg PO daily 18. MS Contin 15 mg PO TID 19. Hydrocodone/APAP 5/325 mg PO BID PRN pain 20. Tramadol 50 mg PO q6hrs PRN pain 21. Metformin 500 mg PO BID Hospital Course: Please see admission note for full H&P, however briefly, Mr. 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 Mr. Chen has a significant smoking history, as well as cardio-pulmonary disease. He had cycle 5 day 1 delayed x1 week due to chemotherapy induced pancytopenia and received 2 units of blood on 05/08. He presented to the ER on 05/19 (following C5D1 on ) complaining of progressive SOB since blood transfusion. He stated that due to his low counts he was concerned for low blood pressure and decided to hold his Beta rolanda and diuretics. To note, in the office earlier that day he had a blood pressure of 135/69 and complained of SOB that resolved with O2 of which he had at home. He also had a 6 pound weight gain and was instructed to take his diuretics which he had held. In the ER his BNP was 420 and an x-ray showed cardiomegaly, otherwise unremarkable. He was admitted for CHF exacerbation. Since admission he has had marked improvement in breathing. His troponin was 0.23 and now down to 0.1, felt secondary to stress induced ischemia as he had no EKG changes. During admission he received day 3 of chemo as scheduled. At the time of discharge Mr. Chen is aware of the need to contact our office should he feel unwell and has been instructed NOT to stop any of his cardiac medications without direct instruction. I have asked him to call Dr. Delacruz s office for cardiology follow-up in approximately 2 weeks. He will see Dr. Johnston in follow-up to both treatment and admission on 05/29 @ 1:30 pm with labs. Plan of care reviewed at length. >40 min spent with >50% face to face counseling
== END 2017-05-21 12:58 | disposition home or self-care (01) | DRG 292 ==
LOC: ED 17:51 → MEDTELE 20:19 → OBSVTOIN 05-20 15:29
PROVIDERS: ADMIT Hospitalist; ATTEND Internal Medicine Hematology & Oncology
DX: I11.0 Hypertensive heart disease with heart failure (principal); C34.90 Malignant neoplasm of unspecified part of unspecified bronchus or lung; E11.51 Type 2 diabetes mellitus with diabetic peripheral angiopathy without gangrene; E11.36 Type 2 diabetes mellitus with diabetic cataract; J44.9 Chronic obstructive pulmonary disease, unspecified; I50.43 Acute on chronic combined systolic (congestive) and diastolic (congestive) heart failure; I25.10 Atherosclerotic heart disease of native coronary artery without angina pectoris; G47.30 Sleep apnea, unspecified; M54.30 Sciatica, unspecified side; K21.9 Gastro-esophageal reflux disease without esophagitis; E66.9 Obesity, unspecified; N40.0 Benign prostatic hyperplasia without lower urinary tract symptoms; M19.90 Unspecified osteoarthritis, unspecified site; E78.5 Hyperlipidemia, unspecified; M41.9 Scoliosis, unspecified; F17.210 Nicotine dependence, cigarettes, uncomplicated; F41.9 Anxiety disorder, unspecified; Z95.5 Presence of coronary angioplasty implant and graft; Z91.030 Bee allergy status; Z86.711 Personal history of pulmonary embolism; Z87.442 Personal history of urinary calculi; Z88.8 Allergy status to other drugs, medicaments and biological substances; Z82.49 Family history of ischemic heart disease and other diseases of the circulatory system; Z85.51 Personal history of malignant neoplasm of bladder; Z86.73 Personal history of transient ischemic attack (TIA), and cerebral infarction without residual deficits; Z80.9 Family history of malignant neoplasm, unspecified; Z91.14 Patient's other noncompliance with medication regimen; Z79.02 Long term (current) use of antithrombotics/antiplatelets; Z79.82 Long term (current) use of aspirin; Z79.4 Long term (current) use of insulin; Z68.34 Body mass index [BMI] 34.0-34.9, adult
CPT/HCPCS: 36415; 71010; 80048; 80053; 81003; 83605; 83735; 83880; 84484; 85025; 87502; 93005; 94640; 94760; 96375; 96413; 99212; A9270-GY; G0378; G0463; J1100; J1453; J1642; J1940; J2469; J9045; J9181

== ENCOUNTER 2017-06-11 12:22 | Inpatient (IN) | payer MEDICARE, OTHER ==
[2017-06-11] MEDS ORDERED: NS 0.9% 1000 ML* 1,000 ML IV SCH (12:45)
[2017-06-11 13:03] LABS: Hematocrit 24 % (42-52); Mean Corpuscular HGB Conc 34 g/dl (31-36); Mean Corpuscular Hemoglobin 34 pg (27-31); Mean Corpuscular Volume 100 fL (80-94); Mean Platelet Volume 9 um3 (7.4-10.4); Platelet Count 99 10^3/ul (150-450); Red Blood Count 2.38 10^6/ul (4.0-5.4); Red Cell Distribution Width 28 % (10.5-15); White Blood Count 5.9 10^3/ul (3.5-10.8)
[2017-06-11 13:06] LABS: INR 1.02 (0.77-1.02)
[2017-06-11 13:15] LABS: EGFR Non-African American 72.3 (>60)
--- NOTE | 2017-06-11 13:15 | RAD ---
Indication: Confusion, leg weakness. CT of the brain was performed without IV contrast. Ventricular structures are midline. No midline shift is noted. The extra-axial spaces. There is no evidence of intracranial mass or hemorrhage. No other high or low density lesions are identified. Hypodensity in the left frontal lobe high in the convexity likely represents old infarct. IMPRESSION: Encephalomalacia high in the left frontal lobe. This likely represents old infarct. No intracranial mass or hemorrhage is noted.
--- NOTE | 2017-06-11 13:16 | RAD ---
INDICATION: Altered mental status COMPARISON: Chest x-ray June 04, 2017 TECHNIQUE: An AP seated portable view obtained at 1311 hours is submitted. FINDINGS: Bones/Soft Tissues: There are no acute bony findings. There is a right-sided [id number] catheter, unchanged Cardiomediastinal: The cardiac silhouette, central pulmonary vessels, and interstitium are prominent consistent with interstitial congestion. Lungs: No focal consolidation. Pleura: There are no pleural effusions. Other: None IMPRESSION: MODERATE VASCULAR CONGESTIVE CHANGES
[2017-06-11 13:30] LABS: ABS Basophils 0 10^3/ul (0-0.2); ABS Eosinophils 0 10^3/ul (0-0.6); ABS Lymphocytes 0.5 10^3/ul (1.0-4.8); ABS Neutrophils 4.4 10^3/ul (1.5-7.7); ABS Nucleated RBC 0.1 10^3/ul; Eosinophil % 0.2 % (0-6); Lymphocyte % 8.7 % (25-47); Nucleated Red Blood Cells % 1.1; Tear Drop Cells 1+
[2017-06-11] MEDS ORDERED: Vancomycin(*) 1,000 MG in NS 0.9% 250 ML* 250 ML IVPB ONE (14:24)
[2017-06-11] MEDS ORDERED: Cefepime(*) 2 GM in NS 0.9% 50 ML* 50 ML IVPB ONE (14:24)
[2017-06-11] MEDS ORDERED: Cefepime 2 GM in Dextrose(*) 2 GM/50 ML BAG IV ONE (15:00)
[2017-06-11] MEDS ORDERED: Nitroglycerin TAB 0.4 MG* 0.4 MG TAB SL PRN (16:12)
--- NOTE | 2017-06-11 16:21 | ED ---
Damian Ingram Stephanie, scribed for Kurt Moralez MD on 06/11/17 at 1328 . Neurological HPI - HPI Summary HPI Summary: The pt is a 67 y/o M presenting to the ED with c/o L sided facial weakness that occurred at 11:36 today s/p fall. His jboss architect reports symptoms of decreased oral intake, confusion, SOB and L sided weakness. The pt reports L facial numbness that lasted 15 minutes this morning. The pt denies chills, SERRA, diaphoresis, or head trauma following fall. The pt is undergoing chemotherapy treatment. - History of Current Complaint Chief Complaint: EDNeurologicalDeficit Stated Complaint: STROKE-LIKE SYMPTOMS Time Seen by Provider: 06/11/17 12:42 Hx Obtained From: Patient, Family/Yard Pipe Grader Onset/Duration: Started hours ago - 2, Still Present, Other - s/p fall Timing: Constant Pain Intensity: 0 Pain Scale Used: 0-10 Numeric Character: Numbness/Tingling - L side of face, Confusion Aggravating: Nothing Alleviating: Nothing Associated Signs and Symptoms: Positive: Confusion, Numbness - L side of face, Decreased Oral Intake, Shortness of Breath, Trauma: Recent - fall. Negative: head trauma. Negative: Headache, Diaphoresis - Additional Pertinent History Primary Care Physician: [id number] - Allergy/Home Medications Allergies/Adverse Reactions: Allergies Allergy/AdvReac Type Severity Reaction Status Date / Time Bee Venom Allergy Severe Swelling Verified 06/08/17 12:09 Of Face,Lips,& Throat Lisinopril Allergy Severe Swelling Verified 06/08/17 12:09 Of Face,Lips,& Throat Cat Hair Extract Allergy Intermediate Wheezing Verified 06/08/17 12:09 VASQUEZ Inhibitors Allergy Unknown Verified 06/08/17 12:09 Reaction Details Home Medications: Home Medications Carboxymethylcellulose Sodium [Refresh Plus] 0.5 % LEFT EYE QID 06/11/17 [ History Confirmed 06/11/17] Morphine TAB Extended Rel(*) [Ms Contin(*)] 15 mg PO TID 06/11/17 [History Confirmed 06/11/17] Neomycin/Polymy/Dex OPHTH.OIN* [Maxitrol 0.1% Opth*] 1 applic LEFT EYE BID 06/11 [History Confirmed 06/11/17] traZODone TAB* [Desyrel TAB*] 100 mg PO BEDTIME 06/11/17 [History Confirmed 04/18] PMH/Surg Hx/FS Hx/Imm Hx Endocrine/Hematology History: Reports: Hx Anticoagulant Therapy, Hx Diabetes - TYPE II-, Hx Anemia Denies: Hx Thyroid Disease, Hx Unexplained Bleeding Cardiovascular History: Reports: Hx Angina, Hx Angioplasty, Hx Congestive Heart Failure, Hx Coronary Artery Disease - STENT, Hx Embolism, Hx Hypercholesterolemia, Hx Hypertension - ON MEDICATION FOR, CONTROLLED, Hx Peripheral Vascular Disease - HX OF, Other Cardiovascular Problems/Disorders - DR. HALEY Denies: Hx Aneurysm, Hx Auto Implanted Cardiovert Defib, Hx Cardiac Arrest, Hx Myocardial Infarction, Hx Pacemaker/ICD, Hx Valvular Heart Disease Respiratory History: Reports: Hx Chronic Obstructive Pulmonary Disease (COPD), Hx Pneumonia, Hx Pulmonary Edema - HX OF, Hx Sleep Apnea, Other Respiratory Problems/Disorders - possible sleep apnea, "wakes up a lot" Denies: Hx Asthma GI History: Reports: Hx Diverticulosis, Hx Gastroesophageal Reflux Disease - ON DAILY MEDS, Hx Hiatal Hernia, Other GI Disorders - inguinal hernia Denies: Hx Cirrhosis, Hx Crohn's Disease, Hx Gall Bladder Disease, Hx Gastrointestinal Bleed, Hx Irritable Bowel, Hx Jaundice, Hx Obstructive Bowel, Hx Ileostomy, Hx Pyloric Stenosis, Hx Ulcer History: Reports: Hx Benign Prostatic Hyperplasia, Hx Kidney Stones - 1 SMALL , 2005, NOT MOVED, Other Problems/Disorders Denies: Hx Renal Disease Musculoskeletal History: Reports: Hx Arthritis, Hx Back Problems, Hx Scoliosis, Other Musculoskeletal History - arthritis back/SCOLIOSIS Sensory History: Reports: Hx Cataracts - Bilateral, Hx Contacts or Glasses - GLASSES Denies: Hx Eye Injury, Hx Eye Prosthesis, Hx Glaucoma, Hx Legally Blind, Hx Macular Degeneration, Hx Vision Problem, Hx Deafness, Hx Hearing Aid, Hx Hearing Problem, Other Sensory Impairments Opthamlomology History: Reports: Hx Cataracts - Bilateral, Hx Contacts or Glasses - GLASSES Denies: Hx Eye Injury, Hx Eye Prosthesis, Hx Glaucoma, Hx Legally Blind, Hx Macular Degeneration, Hx Vision Problem, Other Sensory Impairments Neurological History: Reports: Hx Nerve Disease Denies: Hx Dementia, Hx Developmental Delay, Hx Headaches, Hx Migraine, Hx Seizures, Hx Spinal Cord Injury, Hx Transient Ischemic Attacks (TIA) Psychiatric History: Reports: Hx Anxiety Denies: Hx Panic Disorder, Hx Substance Abuse - Cancer History Cancer Type, Location and Year: BLADDER; Small Cell CA of Lungs Hx Chemotherapy: Yes - current with last treatment 2 weeks ago Hx Radiation Therapy: Yes - 2 weeks ago - Surgical History Surgery Procedure, Year, and Place: 2011 & 2012 BLADDER CANCER [facility] [place]. 2006 LUMBAR SURGERY [place]. 2006 RIGHT INDEX FINGER REATTACHED [facility] [place]. , 2007 [facility]AC [facility]. 2012 left carotid endarterectomy [facility] [place]. 2013 septoplasty [facility] [place]. 08/2013 LT FEMERAL BYPASS [facility]. 09/2016- BLADDER SURGERY Hx Anesthesia Reactions: No Infectious Disease History: No Infectious Disease History: Denies: Hx Clostridium Difficile, Hx Hepatitis, Hx Human Immunodeficiency Virus (HIV), Hx of Known/Suspected MRSA, Hx Shingles, Hx Tuberculosis, Hx Known/ Suspected VRE, Hx Known/Suspected VRSA, History Other Infectious Disease, Traveled Outside the in Last 30 Days - Family History Known Family History: Positive: Cardiac Disease - Social History Occupation: Employed Full-time Lives: Alone Alcohol Use: Occasionally Alcohol Amount: 10 drinks per week Hx Substance Use: No Substance Use Type: Reports: None Hx Tobacco Use: Yes Smoking Status (MU): Heavy Every Day Tobacco Smoker Type: Cigarettes Amount Used/How Often: 1 PPD Have You Smoked in the Last Year: Yes Review of Systems Positive: Other - decreased oral intake. Negative: Chills, Skin Diaphoresis Positive: Shortness Of Breath Neurological: Other - Confusion Positive: Weakness - L sided weakness. Negative: Headache All Other Systems Reviewed And Are Negative: Yes Physical Exam - Summary Physical Exam Summary: General: well-appearing, no pain distress, mildly confused Skin: warm, color reflects adequate perfusion, dry Head: normal Eyes: EOMI, STEPHANIE ENT: normal Neck: supple, nontender Respiratory: breath sounds present, rhoncherous breathe sounds bilaterally Cardiovascular: RRR Abdomen: soft, nontender Bowel: present Musculoskeletal: strength/ROM intact, bilateral pedal edema, left lower leg is erythematous Neurological: sensory/motor intact, L facial droop, Psychological: affect/mood appropriate Triage Information Reviewed: Yes Vital Signs On Initial Exam: Initial Vitals BP 128/74 06/11/17 12:30 Vital Signs Reviewed: Yes - Deidre Coma Scale Coma Scale Total: 15 Diagnostics - Vital Signs Vital Signs Temp Pulse Resp BP Pulse Ox 06/11/17 12:31 98.8 F 89 24 128/74 94 06/11/17 12:30 128/74 - Laboratory Lab Results: Lab Results 06/11/17 06/11/17 Range/Units 12:47 12:47 WBC 5.9 (3.5-10.8) 10^3/ul RBC 2.38 L (4.0-5.4) 10^6/ul Hgb 8.0 L (14.0-18.0) g/dl Hct 24 L (42-52) % MCV 100 H (80-94) fL MCH 34 H (27-31) pg MCHC 34 (31-36) g/dl RDW 28 H (10.5-15) % Plt Count 99 L (150-450) 10^3/ul MPV 9 (7.4-10.4) um3 Neut % (Auto) Pending Lymph % (Auto) Pending Geary % (Auto) Pending Eos % (Auto) Pending Baso % (Auto) Pending Absolute Neuts (auto) Pending Absolute Lymphs (auto) Pending Absolute Monos (auto) Pending Absolute Eos (auto) Pending Absolute Basos (auto) Pending Absolute Nucleated RBC Pending Nucleated RBC % Pending INR (Anticoag Therapy) 1.02 (0.77-1.02) APTT 32.5 (26.0-36.3) seconds Result Diagrams: 06/11/17 12:47 06/11/17 12:47 Lab Statement: Any lab studies that have been ordered have been reviewed, and results considered in the medical decision making process. - Radiology CXR Xray Interpretation: Positive (See Comments) Radiology Interpretation Completed By: Radiologist - MODERATE VASCULAR CONGESTIVE CHANGES - CT Brain CT Interpretation: Positive (See Comments) CT Interpretation Completed By: Radiologist - Encephalomalacia high in the left frontal lobe. This likely represents old infarct. No intracranial mass or hemorrhage is noted. - EKG 13:04 EKG Rhythm: Sinus Rhythm - [address] Segment: Normal Ectopy: None NIH Scale - NIH Scale Level of Consciousness: Alert/Keenly Responsive Ask Patient the Month and His/Her Age: Both Correct Ask Pt to Open/Close Eyes and Discount Clerk/Release Non-Paretic Hand: Both Correctly Best Gaze (Only Horizontal Eye Movement): Normal Visual Field Testing: No Visual Loss Facial Paresis-Pt to Smile & Close Eyes or Grimace Symmetry: Partial Paralysis Motor Function - Right Arm: No Drift-Holds 10 Seconds Motor Function - Left Arm: No Drift-Holds 10 Seconds Motor Function - Right Leg: No Drift-Holds 10 Seconds Motor Function - Left Leg: No Drift-Holds 10 Seconds Limb Ataxia-Must be out of Proportion to Weakness Present: Absent Sensory (Use Pinprick to Test Arms/Legs/Trunk/Face): Pinprick Less on Affected Best Language (Describe Picture, Name Items): No Aphasia Dysarthria (Read Several Words): Normal Extinction and Inattention: No Abnormality Total Score: 3 Course/Dx - Course Course Of Treatment: Medications reviewed. The pt has generalized confusion and with the known history of lung cancer, Dr. Pedersen rules out code padron. ED physician discussed care with Dr. Raquel Mayen for admission. DR PEDERSEN SAW PATIENT IN ED. NO CODE MAHMOOD DUE TO UNCERTAIN TIMING OF SX ONSET AND LUNG CA HX. DUE TO CHF, NO IV BOLUS. ADMIT DR MAYEN. CRITICAL CARE TIME LESS THAN 30 MINUTES. - Diagnoses Provider Diagnoses: Weakness, Cellulitis, Altered mental state, CHF exacerbation - Physician Notifications Discussed Care Of Patient With: Raquel Mayen - Suggests admisson to hospital. Time Discussed With Above Provider: 14:33 Discharge - Discharge Plan Condition: Stable Disposition: ADMITTED TO [facility] Referrals: Soo Mcdermott MD [Primary Care Provider] - The documentation as recorded by the Damian howard Stephanie accurately reflects the service I personally performed and the decisions made by me, Kurt Moralez MD.
[2017-06-11] MEDS ORDERED: Gadoteridol* (CONTRAST) 279.3 MG/ML 10 ML IV ONE (17:21)
--- NOTE | 2017-06-11 18:15 | RAD ---
INDICATION: Pain and swelling. COMPARISON: None TECHNIQUE: Duplex interrogation of the left lowerextremity was performed. FINDINGS: Deep veins: The common femoral, great saphenous, profunda femoris, proximal, mid, and distal deep femoral, popliteal, posterior tibial, and peroneal veins are patent. There is normal compressibility, augmentation, and phasic flow. Superficial veins: There are no findings of superficial thrombophlebitis. Popliteal fossa:There is no evidence of a popliteal cyst. Soft tissues:There are no soft tissue abnormalities. IMPRESSION: No evidence of deep venous thrombosis
--- NOTE | 2017-06-11 18:28 | RAD ---
INDICATION: Right hip pain. COMPARISON: Right hip June 04, 2017 TECHNIQUE: An AP view of the pelvis and AP views of the hip in neutral and abducted position were obtained FINDINGS: Bones: There is deformity of the right acetabulum and femoral head with superior dislocation of the right femur, unchanged. Left hip articulates normally. There is osteoarthritis lower lumbar spine. Joint spaces: The hips articulate normally. The joint spaces are preserved. SI joints/symphysis: The SI joints and symphysis are intact. Other: None IMPRESSION: CHRONIC DISLOCATION RIGHT HIP WITH DEFORMITY, UNCHANGED.
[2017-06-11] MEDS: Insulin LISPRO* 1 UNITS UNIT SUBCUT SCH ×2 (21:09→23:08)
[2017-06-11] MEDS: Artificial Tears* 15 ML BTL LEFT EYE SCH ×2 (21:10→21:25)
--- NOTE | 2017-06-11 21:18 | CONS ---
NEUROLOGY CONSULTATION: DATE OF CONSULT: 06/11/17 LOCATION: He is in the emergency room to be admitted. REFERRING PHYSICIAN: Dr. Taylor. CHIEF COMPLAINT: Confusion, weakness, falls. HISTORY OF PRESENT ILLNESS: Dima Chen Jr., is a 67-year-old right-handed man, currently being treated for small cell lung cancer. He has a chronic hip disease and was becoming weak and falling repetitive times in the last 2 days. His family found him to be slurring in his speech and more confused than he has been and so, he was brought into the emergency room. There is one question of some numbness on one side of his face or weakness on one side of his face at various times, though the patient does not recall that and when I examined him, I did not see evidence of that. He is, however, impaired with poor concentration and attention and he is disoriented to time. He had been falling the last couple of days and was recently transfused for chemotherapy-induced anemia. PAST MEDICAL HISTORY: Notable for a left frontal lobe stroke in 2014, which led to a left carotid endarterectomy. He has bladder cancer, under treatment and most recently small cell lung cancer. He has COPD with ongoing tobacco abuse. He has chronic hip pain and goes to pain management for it. He also has chronic back pain. MEDICATIONS AT HOME: Consist of: 1. Morphine extended release 15 mg p.o. t.i.d. 2. Hydrocodone 5/325 one p.o. b.i.d. 3. Amiodarone 200 mg p.o. q.a.m. 4. Gabapentin 900 mg p.o. b.i.d. 5. Plavix 75 mg p.o. q.a.m. 6. Coreg 6.25 mg p.o. b.i.d. 7. Lipitor 80 mg p.o. q. day. 8. Aspirin 81 mg p.o. q. day. 9. Metformin 500 mg p.o. b.i.d. 10. Flomax 0.4 mg p.o. q.h.s. 11. Omeprazole 20 mg p.o. q.a.m. 12. Trazodone 100 mg p.o. q.h.s. 13. Several inhalers. ALLERGIES: He is allergic to LISINOPRIL and other VASQUEZ INHIBITORS according to the records causing face and throat swelling. He is also allergic to BEE VENOM. FAMILY HISTORY: Noncontributory. REVIEW OF SYSTEMS: Negative for headaches, change in hearing, or change in vision. He finds his coordination in his hands is impaired and he is dropping things. He has noticed increased swelling in his legs particularly redness and hotness in the left leg. His breathing is chronically poor, but he says not worse than usual. No chest pain. He has not hit his head with any of his falls , he does not think. He has diabetes and his last A1c was 8.2% last month. He denies abdominal or bowel problems. PHYSICAL EXAM: He is obese. Temperature 98.8 temporally, blood pressure 128/74 , heart rate is running in the 80s and seems regular. Respiratory rate is 18 and oxygen saturation is 94% on 4 L by nasal cannula. Neck is supple. Head is atraumatic other than a small abrasion on the left side of the bridge of his nose. Oral mucosa is moist and atraumatic. There is pain with manipulation of either proximal leg. Neurologic Exam: Pupils are small, perhaps 2 mm reacting very weakly to light. Eye movements are full. Visual valladares are full to finger counting bilaterally. Facial musculature symmetric and sensation to light touch is symmetric. Speech is mildly dysarthric. Tongue protrudes in the midline weakly and palate raises symmetrically. Hearing is intact to tuning fork in both ears symmetrically. Motor exam reveals good strength proximally and distally in the upper extremities and distally in the lower extremities. There is pain with proximal testing. He has diminished vibration sense in his feet. Reflexes are trace at the biceps and otherwise absent. Plantars are flexor bilaterally. There is some asterixis on the extended wrists. He is alert and oriented to person and place, but not time. He has poor attention and concentration and is a little bit somnolent. Language is fluent. DIAGNOSTIC STUDIES/LAB DATA: Includes a CT of the brain interpreted as showing old left frontal infarct. I reviewed and agree with that interpretation, but I also question whether there might be a right cerebellopontine angle mass. I looked into his old studies including an MRI in 2015 and there is nothing at that point other than the acute stroke findings. Other laboratory data includes a chest x-ray revealing vascular congestion. Chemistry is notable for carbon dioxide 34, BUN 24, and creatinine 1.2. Glucose is 97, calcium a little low at 4.45 and albumin is also low at 3.1. AST and ALT are normal and ammonia level is normal as well at 38. TSH is mildly elevated at 6.48. CBC notable for a hemoglobin of 8.0 which is similar to earlier this week, white blood cell count 5.9. Platelet count is 99,000. Urinalysis is still pending. IMPRESSION AND PLAN: Impression is that of a worsened encephalopathy possibly from congestive heart failure, but infection is certainly in the differential diagnosis. His left leg looks red and warm. He does not have a stiff neck or a headache, so I do not think he needs a spinal tap at this point. Recommended an MRI of the brain with contrast to look for metastatic disease. Urine specimen is still pending, another potential source. I will follow him along with you. [id number]/[facility] #: [id number] MTDFederico
[2017-06-11] MEDS: HYDROcodone/ACETAMIN 5-325 MG* 1 TAB PO PRN (21:22)
[2017-06-11] MEDS: traZODone TAB* 100 MG PO SCH (21:23)
[2017-06-11] MEDS: Morphine TAB Extended Release (*) 15 MG TAB.ER PO SCH (21:23)
[2017-06-11] MEDS: Atorvastatin* 80 MG TAB PO SCH (21:24)
[2017-06-11] MEDS: metFORMIN* 500 MG TAB PO SCH (21:24)
[2017-06-11] MEDS: Carvedilol TAB* 6.25 MG PO SCH (21:24)
[2017-06-11] MEDS: Tamsulosin CAP* 0.4 MG PO SCH (21:25)
[2017-06-11] MEDS: CMC: Pantoprazole TAB (NF) 40 MG TAB PO SCH (21:25)
[2017-06-11] MEDS: Neomycin/Polymy/Dex OPHTH.OIN* 3.5 GM LEFT EYE SCH (21:26)
[2017-06-11] MEDS: Enoxaparin(*) 40 MG/0.4 ML SYR SUBCUT SCH (22:08)
[2017-06-11] MEDS: Furosemide IV* 10 MG/ML VIAL (40 MG) IV SCH (22:09)
[2017-06-11] MEDS: Nicotine Patch Removal NOTE FOLLOW UP SCH (23:08)
[2017-06-11] MEDS: Insulin GLARGINE(*) 1 UNITS UNIT SUBCUT SCH (23:13)
[2017-06-11 23:28] LABS: Urine Appearance Clear; Urine Blood 1+ (Negative); Urine Color Yellow; Urine Ketones Negative (Negative); Urine Protein Negative (Negative); Urine Specific Gravity 1.012 (1.010-1.030); Urine Urobilinogen Negative (Negative)
[2017-06-12] MEDS: HYDROcodone/ACETAMIN 5-325 MG* 1 TAB PO PRN ×4 (04:48→23:37)
[2017-06-12 05:17] LABS: ABS Basophils 0 10^3/ul (0-0.2); ABS Eosinophils 0 10^3/ul (0-0.6); ABS Lymphocytes 0.8 10^3/ul (1.0-4.8); ABS Neutrophils 3.7 10^3/ul (1.5-7.7); ABS Nucleated RBC 0.1 10^3/ul; Eosinophil % 0.4 % (0-6); Hematocrit 26 % (42-52); Hemoglobin 8.9 g/dl (14.0-18.0); Lymphocyte % 13.7 % (25-47); Mean Corpuscular HGB Conc 34 g/dl (31-36); Mean Corpuscular Hemoglobin 34 pg (27-31); Mean Corpuscular Volume 100 fL (80-94); Mean Platelet Volume 9 um3 (7.4-10.4); Nucleated Red Blood Cells % 1.1; Platelet Count 117 10^3/ul (150-450); Red Blood Count 2.63 10^6/ul (4.0-5.4); Red Cell Distribution Width 28 % (10.5-15); White Blood Count 5.5 10^3/ul (3.5-10.8)
[2017-06-12] MEDS: Albuterol 2.5 MG/3 ML NEB.SOL* (0.083%) INH PRN (05:55)
[2017-06-12] MEDS: Insulin LISPRO* 1 UNITS UNIT SUBCUT SCH ×4 (07:27→21:10)
--- NOTE | 2017-06-12 08:16 | RAD ---
Indication: RIGHT side facial numbness that started at 1100 hours June 11, 2017. Difficulty walking. History of lung cancer. Comparison: CT brain of the same date and August 17, 2012 MRI. Technique: [employer] [place] 1.5 Rere GC275X with GEM suite. MRI brain without and with contrast. 20 mm administered IV. Report: Diffusion series is negative for acute or subacute ischemia. Susceptibility series is negative for stigmata of hemosiderin deposition to indicate previous hemorrhage. Based on correlation with previous CT and MRI exams there is mild T2 hyperintensity and volume loss consistent with encephalomalacia at the LEFT frontal and parietal lobes most prominent at the postcentral gyrus secondary to previous infarcts. Small focus of nonspecific T2 hyperintensity at the LEFT frontal lobe white matter at the level of gaytan radiata without change compared with the 2013 exam. No new intra or extra-axial lesions or abnormal foci of enhancement evident. Only mild prominence of the cerebral sulci. Unremarkable ventricles and basal cisterns. Preserved major intracranial flow-voids. Unremarkable orbital contents. No suspicious calvarial or skull base lesion evident. Clear paranasal sinuses and mastoid air spaces. Unremarkable scalp. IMPRESSION: 1. No evidence for intra or extra-axial metastasis. 2. Encephalomalacia at the LEFT frontal parietal related to previous infarcts. 3. No acute intracranial process evident.
[2017-06-12] MEDS: Morphine TAB Extended Release (*) 15 MG TAB.ER PO SCH ×3 (08:24→21:54)
[2017-06-12] MEDS: Potassium Chlor TAB* 20 MEQ TAB.ER PO SCH (08:24)
[2017-06-12] MEDS: Magnesium Oxide TAB* 400 MG PO SCH (08:24)
[2017-06-12] MEDS: metFORMIN* 500 MG TAB PO SCH ×2 (08:25→16:33)
[2017-06-12] MEDS: Nicotine PATCH 21 MG/24 HR* PATCH TRANSDERM SCH (08:25)
[2017-06-12] MEDS: Carvedilol TAB* 6.25 MG PO SCH ×2 (08:25→21:53)
[2017-06-12] MEDS: Amiodarone TAB* 200 MG PO SCH (08:25)
[2017-06-12] MEDS: Clopidogrel TAB* 75 MG PO SCH (08:25)
[2017-06-12] MEDS: CMC: Pantoprazole TAB (NF) 40 MG TAB PO SCH (08:25)
[2017-06-12] MEDS: Neomycin/Polymy/Dex OPHTH.OIN* 3.5 GM LEFT EYE SCH ×2 (08:26→21:54)
[2017-06-12] MEDS: Artificial Tears* 15 ML BTL LEFT EYE SCH ×4 (08:26→21:53)
[2017-06-12] MEDS: Furosemide IV* 10 MG/ML VIAL (40 MG) IV SCH (08:26)
[2017-06-12] MEDS: Aspirin EC Low Dose* 81 MG TAB.EC PO SCH (08:27)
[2017-06-12] MEDS ORDERED: Spiriva Inhaler DEVICE* 1 EACH DEVICE INH ONE (09:00)
[2017-06-12] MEDS: Tiotropium CAP.INH* CAP.INH/18 MCG (USE ORDER SET !) INH SCH (09:05)
--- NOTE | 2017-06-12 10:27 | PN ---
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 Presents two weeks increased SOB and LISA. Started after blood transfusion and worse and worse. Yesterday could not breath or walk and came to ER. Has been both forgetful and dropping things. Remembers being confused in ER and does feel a little better today. No fevers at home. Has pain, hips and ankles last two weeks. Hydrocodone Bitart/Acetaminophen ([place] 5-325 Tab*) 1 tab PO Q6H PRN PRN Reason: PAIN Last Admin: 06/12/17 04:48 Dose: 1 tab Albuterol (Ventolin 2.5 Mg/3 Ml Neb.Luz Elena*) 2.5 mg INH QID PRN PRN Reason: SHORTNESS OF BREATH Last Admin: 06/12/17 05:55 Dose: 2.5 mg Amiodarone HCl (C[facility]arone Tab*) [facility] [place] Last Admin: 06/12/17 08:25 Dose: 200 mg Aspirin (Aspirin Ec Low Dose*) 81 mg PO QAM [facility] Last Admin: 06/12/17 08:27 Dose: 81 mg Atorvastatin Calcium (Lipitor*) 80 mg PO BEDTIME [facility] Last Admin: 06/11/17 21:24 Dose: 80 mg Carvedilol (Coreg Tab*) 6.25 mg PO BID [facility] Last Admin: 06/12/17 08:25 Dose: 6.25 mg Clopidogrel Bisulfate (Plavix Tab*) [facility] [place] Last Admin: 06/12/17 08:25 Dose: 75 mg Docusate Sodium (Colace Cap*) 200 mg PO BID PRN PRN Reason: CONSTIPATION Enoxaparin Sodium (Lovenox(*)) 40 mg SUBCUT Q24H [facility] Last Admin: 06/11/17 22:08 Dose: 40 mg Furosemide (Lasix Iv*) 40 mg IV DAILY [facility] Last Admin: 06/12/17 08:26 Dose: 40 mg Heparin Sodium (Porcine) (Heparin Flush Port (Ivad)) 5 ml FLUSH DAILY [facility] PRN Reason: Protocol Last Admin: 06/12/17 04:49 Dose: 5 ml Sodium Chloride (Ns 0.9% 1000 Ml*) 1,000 mls @ 150 mls/hr IV PER RATE [facility] Last Admin: 06/11/17 15:22 Dose: 150 mls/hr Insulin Glargine (Lantus(*)) 26 units 0.24 units/kg (26 units) SUBCUT 2100 [facility] Last Admin: 06/11/17 23:13 Dose: 26 units Insulin Human Lispro (Humalog*) 0 units SUBCUT ACHS [facility] PRN Reason: Protocol Last Admin: 06/12/17 07:27 Dose: Not Given Magnesium Oxide (Magox 400 Tab*) 400 mg PO DAILY [facility] Last Admin: 06/12/17 08:24 Dose: 400 mg Metformin HCl (Glucophage*) 500 mg PO 0800,1700 [facility] Last Admin: 06/12/17 08:25 Dose: 500 mg Morphine Sulfate (Ms Contin(*)) 15 mg PO TID [facility] Last Admin: 06/12/17 08:24 Dose: 15 mg Neomycin/Polymyxin/Dexamethasone (Maxitrol 0.1% Opth*) 1 applic LEFT EYE BID [facility] Last Admin: 06/12/17 08:26 Dose: 1 dose Nicotine (Nicotine Patch 21 Mg/24 Hr*) 1 patch TRANSDERM DAILY@0900 [facility] Last Admin: 06/12/17 08:25 Dose: 1 patch Nitroglycerin (Nitroglycerin Tab 0.4 Mg*) 0.4 mg SL Q5M PRN PRN Reason: PAIN - CHEST Pantoprazole Sodium (Protonix Tab (Nf)) 40 mg PO DAILY [facility] Last Admin: 06/12/17 08:25 Dose: 40 mg Pharmacy Profile Note (Nicotine Patch Removal Note*) 1 note FOLLOW UP 2099 [facility] Last Admin: 06/11/17 23:08 Dose: Not Given Polyvinyl Alcohol (Polyvinyl Alcohol 1.4% Opth*) 1 drop LEFT EYE QID [facility] Last Admin: 06/12/17 08:26 Dose: 1 drop Potassium Chloride (Klor Con Er Tab*) 20 meq PO DAILY [facility] Last Admin: 06/12/17 08:24 Dose: 20 meq Tamsulosin HCl (Flomax Cap*) 0.4 mg PO BEDTIME [facility] Last Admin: 06/11/17 21:25 Dose: 0.4 mg Tiotropium Bland (Spiriva Cap.Inh*) 1 cap INH DAILY [facility] Last Admin: 06/12/17 09:05 Dose: 1 cap Trazodone HCl (Desyrel Tab*) 100 mg PO BEDTIME [facility] Last Admin: 06/11/17 21:23 Dose: 100 mg Objective: [] Vital Signs Temp Pulse Resp BP Pulse Ox 98.3 F 87 16 144/65 98 06/12/17 07:26 06/12/17 09:10 06/12/17 09:10 06/12/17 07:26 06/12/17 09:10 HEENT - No oral lesions Neuro - telling history, oriented to hospital and month,. Wheezing, diffuse, decreased sounds S1S2 distant, 80s + hernia, no walll edema, obese, + BS Ext + 3 edema LLE, +2 RLE MRI brain neg Echo pending BNP 1000 Assessment: []67 yo with history of SSLC on chemotherapy who comes in with what appears to be CHF. Plan: []1. Agree on holding antibiotics, follow for fever 2. Lasix 40 IV daily pending cardiology input 3. Echo pending and cardiology to see today. 4. Follow Mg and K 5. MS appears improved, MRI negative. Will follow.
--- NOTE | 2017-06-12 10:30 | PN ---
Progress Note - Progress Note Date of Service: 06/12/17 SOAP: ADDENDUM: Requesting anxiety medication, hold for now given prior mental status changes. IV Lasix 1 hr ago and will see if it helps. []
--- NOTE | 2017-06-12 14:27 | ECHO ---
Patient: AHSAN MOORE [facility] Rec#: [id number] : 1950 Date: 06/12/2017 Age: 67y Height: 177.8 cm / 70.0 in Weight: 108.9 kg / 240.0 lbs Sex: M BSA: 2.3 Room#: 431 Admit Date#: 06/11/2017 Type: Inpatient Referring: Shona Ventura Reading: Matthew Moreno MD Heel Sander: Debra Johnson RN RDCS CC: Judy Delacruz MD CC: Soo Mcdermott MD Transthoracic Echocardiogram Indication: CHF BP: 144/65 HR: 83 Rhythm: NSR Findings History: CAD, MO, PCI, HTN, HLD, DM, PAD, CVA, smoker, COPD, sleep apnea, lung cancer, chemotherapy. Technical Comments: The study quality is fair. The study is technically limited due to patient body habitus. The study is technically limited due to the patient's history of COPD. The study is technically limited due to the patient's smoking history. The study was technically limited due to the patient's inability to lay in the left lateral decubitus position. The exam was performed with the patient sitting upright in a chair. Completed at 0915. Left Ventricle: The left ventricular chamber size is mildly dilated. Septal wall hypertrophy is observed. There is mild to moderately decreased left ventricular systolic function. The estimated ejection fraction is 40-45%. The assessment of diastolic function is non-diagnostic. The patient was unable to perform a Valsalva maneuver. The basal inferolateral, and mid inferolateral wall segments are hypokinetic (score 2). Overall wallmotion score index is 2.00 Left Atrium: The left atrium is moderately dilated. Right Ventricle: The right ventricular cavity size is normal. The right ventricular global systolic function is low normal. Right Atrium: The right atrium is mild to moderately dilated. Aortic Valve: The aortic valve is trileaflet. The aortic valve leaflets are mildly thickened. There is no evidence of aortic regurgitation. There is no evidence of aortic stenosis. Mitral Valve: The mitral valve leaflets are mildly thickened. There is mild to moderate mitral regurgitation. Tricuspid Valve: The tricuspid valve leaflets are normal. There is mild to moderate tricuspid regurgitation. There is evidence of moderate pulmonary hypertension. Pulmonic Valve: The pulmonic valve structure is not well visualized. There is no evidence of pulmonic regurgitation. There is no pulmonic stenosis. Pericardium: There is no significant pericardial effusion. A pericardial fat pad is visualized. Aorta: There is mild dilatation of the ascending aorta. There is no dilatation of the aortic arch. There is no dilation of the aortic root. Pulmonary Artery: The main pulmonary artery is not well visualized. Venous: The venous system is not well visualized. The inferior vena cava is not visualized. Conclusions There is mild to moderately decreased left ventricular systolic function. The estimated ejection fraction is 40-45%. The left ventricular chamber size is mildly dilated. The basal inferolateral, and mid inferolateral wall segments are hypokinetic (score 2). The left atrium is moderately dilated. The right atrium is mild to moderately dilated. There is mild to moderate mitral regurgitation. There is mild to moderate tricuspid regurgitation (TR). There is evidence of moderate pulmonary hypertension. There is mild dilatation of the ascending aorta. Since the prior echocardiograms completed 08/18/16 and 10/13/16, prior TR graded trace; overall appears similiar. Measurements Name Value Normal Range RVDdMajor (2D) 3.9 cm (2.2 - 4.4) RVAW (2D) 0.9 cm (0.2 - 0.5) RAd ISD 4CH 5.7 cm (3.4 - 4.9) RA (A4C)W 4.2 cm (2.9 - 4.6) IVSd (2D) 1.6 cm (0.6 - 1) LVPWd (2D) 0.9 cm (0.6 - 1) LVIDd (2D) 5.7 cm (3.6 - 5.4) LVIDs (2D) 4.6 cm - LV FS (2D) 18 % (25 - 45) Aortic Annulus 2.3 cm (1.4 - 2.6) Ao root diameter (2D) 3.3 cm (2.1 - 3.5) Ascending Ao 3.6 cm (2.1 - 3.4) Aortic arch 2.1 cm (1.8 - 3.4) LA dimension (AP) 2D 3.9 cm (2.3 - 3.8) LAd ISD 4CH 5.8 cm (2.9 - 5.3) LA ISD 4CH W 4.7 cm (2.5 - 4.5) Name Value Normal Range LA ESV SP 4CH (A/L) 101 ml - LA ESV SP 2CH (A/L) 80 ml - LA ESV BP (A/L) 93 ml - LA ESV BP (A/L) index 41.1 ml/m2 - LA ESV SP 4CH (MOD) 97 ml - LA ESV SP 2CH (MOD) 77 ml - Name Value Normal Range MV E-wave Vmax 1.1 m/sec - MV deceleration time 160 msec - MV A-wave Vmax 0.95 m/sec - MV E:A ratio 1.1 ratio - LV septal e' Vmax 0.06 m/sec - LV lateral e' Vmax 0.1 m/sec - LV E:e' septal ratio 18.3 ratio - LV E:e' lateral ratio 11 ratio - Name Value Normal Range AV Vmax 1.5 m/sec - AV VTI 29.6 cm - AV peak gradient 8.6 mmHg - AV mean gradient 4.7 mmHg - LVOT Vmax 1.3 m/sec - LVOT VTI 25.4 cm - LVOT peak gradient 6.3 mmHg - LVOT mean gradient 3.1 mmHg - GIANLUCA Vmax 0.74 m/sec - Name Value Normal Range MV Vmax 1.3 m/sec - MV VTI 27.7 cm - MV peak gradient 7.1 mmHg - MV mean gradient 2.9 mmHg - MV PHT 86 msec - MVA (PHT) 2.5 cm2 - Name Value Normal Range TR Vmax 3.2 m/sec - TR peak gradient 41 mmHg - RAP 8 mmHg - RVSP 49 mmHg - Name Value Normal Range PV Vmax 0.92 m/sec - Wallmotion BAS Not Seen BA Not Seen BAL Not Seen ANSON Hypokinetic BI Not Seen BIS Not Seen MAS Not Seen MA Not Seen MAL Not Seen MIL Hypokinetic MO Not Seen MIS Not Seen Not Seen AA Not Seen AL Not Seen AI Not Seen APEX Not Seen
--- NOTE | 2017-06-12 15:01 | CONSULT ---
Subjective Reason for Visit: right sided facial numbness Admission Date: 06/11/17 Glucose Level On Admission: 128 History Of Present Illness: Mr. Chen is a 67 year old male, admitted 06/11/17 for CHF, SOB and LE edema after presenting to the ER with facial numbness. DM education was requested by oncology. Pt was diagnosed with type II diabetes 3 years ago. At the time of diagnosis, his Hgb A1C was 12.7%, however had been in the goal range until recently. Hgb A1C increased from 7.0% in November to 8.2% in May. He attributes this change to beginning cancer tx and decreased physical activity. When he remembers to monitor his fasting BG it ranges from 110-130. Diabetes is managed by his PCP, and he has had some diabetes previously. Patient History Surgical History: Yes Surgery Procedure, Year, and Place: 2011 & [place] [facility] [place]. 2005 [place] [facility] [place] [facility] [facility]. 2012 [place] [facility] [place] [facility] [place]2013 [facility]AL [facility]. 09/2016- BLADDER SURGERY Marital Status: Single Social Support: family Preferred/Primary Language: [place] Employed/Unemployed: Unemployed Hx Tobacco Use: Yes Smoking/Tobacco use: Current Exercise: limited Review Of Systems - Review of Systems Constant: - - pain and general malaise Cardiovascular: - - LE edema Respiratory: - - SOB Objective Allergies Allergy/AdvReac Type Severity Reaction Status Date / Time Bee Venom Allergy Severe Swelling Verified 06/08/17 12:09 Of Face,Lips,& Throat Lisinopril Allergy Severe Swelling Verified 06/08/17 12:09 Of Face,Lips,& Throat Cat Hair Extract Allergy Intermediate Wheezing Verified 06/08/17 12:09 VASQUEZ Inhibitors Allergy Unknown Verified 06/08/17 12:09 Reaction Details Home Medications Medication Instructions Recorded Confirmed Type Omeprazole CAP* [Prilosec CAP* 20 20 mg PO QAM 11/28/13 06/11/17 History MG] Amiodarone TAB* [Cordarone Tab*] 200 mg PO QAM #0 06/26/16 06/11/17 History Atorvastatin* [Lipitor 80 MG*] 80 mg PO BEDTIME #0 06/26/16 06/11/17 History Clopidogrel TAB* [Plavix TAB*] 75 mg PO QAM #0 06/26/16 06/11/17 History Tamsulosin CAP* [Flomax CAP*] 0.4 mg PO BEDTIME 09/04/16 06/11/17 History Torsemide TAB* [Demadex 20 MG*] 40 mg PO QPM 10/15/16 06/11/17 History Albuterol 2.5MG/3ML (0.083%)* 2.5 mg INH QID PRN 12/26/16 06/11/17 History [Ventolin 2.5 MG/3 ML NEB.TAI*] Aspirin EC Low Dose* [Ecotrin EC 81 mg PO QAM 12/26/16 06/11/17 History Low Dose 81 MG*] Carvedilol TAB* [Coreg TAB*] 6.25 mg PO BID 12/26/16 06/11/17 History Nitroglycerin TAB 0.4 MG* 0.4 mg SL Q5M PRN 12/26/16 06/11/17 History Albuterol HFA INHALER* [Ventolin 2 puff INH Q4H PRN 04/13/17 06/11/17 History HFA Inhaler*] Gabapentin CAP(*) [Neurontin 100 900 mg PO BID 04/13/17 06/11/17 History mg CAP(*)] Magnesium Oxide TAB* [MagOx 400 400 mg PO DAILY 04/13/17 06/11/17 History TAB*] Potassium Chlor TAB* [Potassium 20 meq PO DAILY 04/13/17 06/11/17 History Chlor TAB 20 MEQ*] Tiotropium CAP.INH* [Spiriva 1 cap.inh INH DAILY 04/13/17 06/11/17 History CAP.INH*] HYDROcodone/ACETAMIN 5-325 MG* 1 tab PO BID PRN 05/14/17 06/11/17 History [[place] 5-325 TAB*] metFORMIN* [Glucophage 500 MG TAB 500 mg PO BID 05/19/17 06/11/17 History *] Docusate CAP* [Colace Cap*] 200 mg PO BID PRN cap 05/21/17 06/11/17 Rx Carboxymethylcellulose Sodium 0.5 % LEFT EYE QID 06/11/17 06/11/17 History [Refresh Plus] Morphine TAB Extended Rel(*) [Ms 15 mg PO TID 06/11/17 06/11/17 History Contin(*)] Neomycin/Polymy/Dex OPHTH.OIN* 1 applic LEFT EYE BID 06/11/17 06/11/17 History [Maxitrol 0.1% Opth*] traZODone TAB* [Desyrel TAB*] 100 mg PO BEDTIME 06/11/17 06/11/17 History Hospital Medications: Current Medications Hydrocodone Bitart/Acetaminophen ([place] 5-325 Tab*) 1 tab PO Q6H PRN PRN Reason: PAIN Last Admin: 06/12/17 11:05 Dose: 1 tab Albuterol (Ventolin 2.5 Mg/3 Ml Neb.Tai*) 2.5 mg INH QID PRN PRN Reason: SHORTNESS OF BREATH Last Admin: 06/12/17 05:55 Dose: 2.5 mg Amiodarone HCl (Cordarone Tab*) 200 mg PO QAM [facility] Last Admin: 06/12/17 08:25 Dose: 200 mg Aspirin (Aspirin Ec Low Dose*) [facility] Last Admin: 06/12/17 08:27 Dose: 81 mg Atorvastatin Calcium (Lipitor*) 80 mg PO BEDTIME [facility] Last Admin: 06/11/17 21:24 Dose: 80 mg Carvedilol (Coreg Tab*) 6.25 mg PO BID [facility] Last Admin: 06/12/17 08:25 Dose: 6.25 mg Clopidogrel Bisulfate (Plavix Tab*) 75 mg PO QAM [facility] Last Admin: 06/12/17 08:25 Dose: 75 mg Docusate Sodium (Colace Cap*) 200 mg PO BID PRN PRN Reason: CONSTIPATION Enoxaparin Sodium (Lovenox(*)) 40 mg SUBCUT Q24H [facility] Last Admin: 06/11/17 22:08 Dose: 40 mg Furosemide (Lasix Iv*) 40 mg IV DAILY [facility] Last Admin: 06/12/17 08:26 Dose: 40 mg Heparin Sodium (Porcine) (Heparin Flush Port (Ivad)) 5 ml FLUSH DAILY [facility] PRN Reason: Protocol Last Admin: 06/12/17 11:08 Dose: Not Given Sodium Chloride (Ns 0.9% 1000 Ml*) 1,000 mls @ 150 mls/hr IV PER RATE [facility] Last Admin: 06/11/17 15:22 Dose: 150 mls/hr Insulin Glargine (Lantus(*)) 26 units 0.24 units/kg (26 units) SUBCUT 2100 [facility] Last Admin: 06/11/17 23:13 Dose: 26 units Insulin Human Lispro (Humalog*) 0 units SUBCUT ACHS [facility] PRN Reason: Protocol Last Admin: 06/12/17 12:58 Dose: Not Given Magnesium Oxide (Magox 400 Tab*) 400 mg PO DAILY [facility] Last Admin: 06/12/17 08:24 Dose: 400 mg Metformin HCl (Glucophage*) 500 mg PO 0800,1700 [facility] Last Admin: 06/12/17 08:25 Dose: 500 mg Morphine Sulfate (Ms Contin(*)) 15 mg PO TID [facility] Last Admin: 06/12/17 13:04 Dose: 15 mg Neomycin/Polymyxin/Dexamethasone (Maxitrol 0.1% Opth*) 1 applic LEFT EYE BID [facility] Last Admin: 06/12/17 08:26 Dose: 1 dose Nicotine (Nicotine Patch 21 Mg/24 Hr*) 1 patch TRANSDERM DAILY@0900 [facility] Last Admin: 06/12/17 08:25 Dose: 1 patch Nitroglycerin (Nitroglycerin Tab 0.4 Mg*) 0.4 mg SL Q5M PRN PRN Reason: PAIN - CHEST Pantoprazole Sodium (Protonix Tab (Nf)) 40 mg PO DAILY [facility] Last Admin: 06/12/17 08:25 Dose: 40 mg Pharmacy Profile Note (Nicotine Patch Removal Note*) 1 note FOLLOW UP 2099 [facility] Last Admin: 06/11/17 23:08 Dose: Not Given Polyvinyl Alcohol (Polyvinyl Alcohol 1.4% Opth*) 1 drop LEFT EYE QID [facility] Last Admin: 06/12/17 13:19 Dose: 1 drop Potassium Chloride (Klor Con Er Tab*) 20 meq PO DAILY [facility] Last Admin: 06/12/17 08:24 Dose: 20 meq Tamsulosin HCl (Flomax Cap*) 0.4 mg PO BEDTIME [facility] Last Admin: 06/11/17 21:25 Dose: 0.4 mg Tiotropium [place] (Spiriva Cap.Inh*) 1 cap INH DAILY [facility] Last Admin: 06/12/17 09:05 Dose: 1 cap Trazodone HCl (Desyrel Tab*) 100 mg PO BEDTIME [facility] Last Admin: 06/11/17 21:23 Dose: 100 mg Lab Data: Sodium 135 mmol/L (133-145) 06/12/17 05:00 Potassium 3.8 mmol/L (3.5-5.0) 06/12/17 05:00 BUN 14 mg/dL (6-24) 06/12/17 05:00 Creatinine 1.10 mg/dL (0.67-1.17) 06/12/17 05:00 Calcium 8.8 mg/dL (8.6-10.3) 06/12/17 05:00 Magnesium 2.3 mg/dL (1.9-2.7) 06/11/17 12:47 AST 17 U/L (13-39) 06/12/17 05:00 ALT 11 U/L (7-52) 06/12/17 05:00 Vital Signs: Vital Signs 06/12/17 06/12/17 06/12/17 07:26 07:47 08:24 Temperature 36.8 C Pulse Rate 86 Respiratory 19 20 18 Rate Blood Pressure 144/65 (mmHg) O2 Sat by Pulse 96 Oximetry 06/12/17 06/12/17 06/12/17 08:29 09:10 11:05 Temperature Pulse Rate 87 Respiratory 18 16 18 Rate Blood Pressure (mmHg) O2 Sat by Pulse 98 Oximetry 06/12/17 06/12/17 06/12/17 11:07 11:26 13:04 Temperature 36.9 C Pulse Rate 68 Respiratory 16 20 16 Rate Blood Pressure 123/61 (mmHg) O2 Sat by Pulse 100 Oximetry 06/12/17 14:03 Temperature Pulse Rate Respiratory 18 Rate Blood Pressure (mmHg) O2 Sat by Pulse Oximetry Height: 5 ft 10 in Weight: 106.685 kg Body Mass Index (BMI): 33.7 Physical Exam General Appearance: Positive: Alert, Oriented x3, Pain Cardiovascular: Positive: RRR Plan Of Care Referral To: [facility] For Further OutPT Diabetic Training Diagnosis: Mr. Chen is a 67 year old male with type II diabetes, previously well controlled, now with recent increase in Hgb A1C. Steroids prescribed in treatment for small cell lung ca have been short term, likely not the cause of worsening glycemic control. More likely reflects decreased physical activity, disease progression and food choices. Pt could benefit from lifestyle modification, unclear how motivated he is to make these changes at this time. Education today was limited due to the patient's pain level. He was provided with written information and I recommend follow up for further diabetes education and smoking cessation as an outpatient at [facility]. Education Prior Diabetic Education: Yes Education Provided: Blood Glucose Monitoring Handouts Provided: [facility] Taking Control Of Your Diabetes Goals Goals: According to the [place] [employer], the following are your goals for Hemaglobin A1C, Blood Glucose, Cholesterol and Blood Pressure. Hemaglobin A1C * <7.0% for most * <6.5% for "healthy" * <8.0% for "Less Healthy" Blood Glucose * Fasting Blood Glucose: 80-130 mg/dl * 2 Hour Post Prandial Glucose <180 mg/dl
[2017-06-12] MEDS: Enoxaparin(*) 40 MG/0.4 ML SYR SUBCUT SCH (16:34)
[2017-06-12] MEDS: Ibuprofen TAB* 600 MG PO PRN (18:54)
[2017-06-12] MEDS: Gabapentin CAP(*) 400 MG PO SCH (21:53)
[2017-06-12] MEDS: traZODone TAB* 100 MG PO SCH (21:53)
[2017-06-12] MEDS: Atorvastatin* 80 MG TAB PO SCH (21:53)
[2017-06-12] MEDS: Tamsulosin CAP* 0.4 MG PO SCH (21:54)
[2017-06-12] MEDS: Insulin GLARGINE(*) 1 UNITS UNIT SUBCUT SCH (21:54)
[2017-06-12] MEDS: Nicotine Patch Removal NOTE FOLLOW UP SCH (21:57)
--- NOTE | 2017-06-13 00:32 | PN ---
NEUROLOGY FOLLOWUP NOTE: DATE OF FOLLOWUP: 06/12/17 LOCATION: He is in room 431. PRIMARY CARE PHYSICIAN: Dr. Iyer. CHIEF COMPLAINT: Confusion, weakness. INTERVAL HISTORY: Since yesterday, Mr. Chen feels much more alert. He does not feel that one side is weaker than the other. His biggest complaint is his hip pain and also terrible burning pain in his feet. His legs remain very swollen. 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 He had been taking morphine twice a day at home and gabapentin 900 mg twice per day. He also takes extended release morphine 15 mg p.o. twice per day at home and is on t.i.d. here. He also has hydrocodone for pain. MEDICATIONS: Extensive medication list is reviewed and is in the EMR. PHYSICAL EXAMINATION: His temperature is 98.4, blood pressure 123/61, heart rate in the 60s, respiratory rate is 20, and oxygen saturation is 100% on supplemental oxygen. He is alert and oriented to person, place, and time. He is able to give a good history. He has severe edema both legs, worse on the left. IMPRESSION: Is that of congestive heart failure causing increased weakness and confusion. His MRI scan revealed there is old left frontal infarct, but no metastasis or other new cerebrovascular findings. His laboratory studies are notable for his anemia which is stable today with a hemoglobin up to 8.9 from 8.0 yesterday. White blood cell count 5.5, platelet count up to 117,000. Chemistries today are unremarkable. His BNP this morning was 1051. At this point, I do not see evidence for acute neurological process. We will sign off and call if further neurological input is desired. [id number]/[facility] #: [id number] BRY
--- NOTE | 2017-06-13 00:41 | CONS ---
CC: Dr. Delacruz; Dr. Johnston; Dr. Mcdermott CARDIOLOGY CONSULTATION: DATE OF CONSULT: 06/12/17 REFERRING PHYSICIAN: Dr. Iyer. Reason for cardiology consultation: CHF management. HISTORY OF PRESENT ILLNESS: I was kindly asked to see this patient who has known history of PAD, CAD, current smoking as well as prior acute inferior wall ST elevation with cardiogenic shock and complete heart block in April 2015 post BMS, now being treated for lung cancer. The reason for the cardiology consultation is concern for worsening congestive heart failure with lower extremity edema. When I talked to the patient, he has noted that his legs have become more swollen over the past week. He has also felt short of breath over that period of time. There was some concern that he may be having a stroke as he had a transient right sided facial numbness and was apparently dropping things so the oncology service admitted him. Neurology consultation felt that the patient had worsened encephalopathy possibly from congestive heart failure but infection was within the differential diagnosis. The patient has received some IV Lasix here and it sounds like he may have improved a little bit. The patient denies chest pain. The patient had cardiogenic shock with an acute inferior wall IL and complete heart block on 04/16/15. At that time, he underwent aspiration thrombectomy with circumflex stent placement with a bare metal stent. At that time, his left main was quoted as having no stenosis, LAD with a mid 30% lesion, circumflex was occluded at that time a few centimeters from the origin for which he received a bare metal stent at the site of a prior stent and RCA without significant stenosis. There was also a PL branch with a proximal 50% to 60% stenosis. The patient had an echocardiogram completed earlier today ( please see also that report), which showed [id number] depressed left ventricular ejection fraction of 40% to 45% with basal inferolateral, mid inferolateral hypokinesis, moderate left atrial dilatation, moderate right atrial dilatation, wgmh-[id number] mitral regurgitation with xokn-[id number] tricuspid regurgitation, moderate pulmonary hypertension, mild dilatation of the ascending aorta. When compared to prior echocardiogram that was completed on 08/26/16 and 10/13/16, prior TR graded trace, but overall appeared similar. PAST MEDICAL HISTORY: Other past medical history includes bladder cancer which per the patient is in remission. He is currently being treated for a small cell lung cancer. He apparently had right facial numbness yesterday, PAD with fem-pop bypass of the left lower extremity, COPD, hyperlipidemia, chronic kidney stone, sleep apnea, with noncompliance with positive pressure ventilation therapy. The patient reports a history also of diabetes and stroke. OUTPATIENT MEDICATIONS: 1. Omeprazole 20 mg p.o. q.a.m. 2. Lipitor 80 mg p.o. daily. 3. Amiodarone 200 mg once a day. 4. Plavix 75 mg once a day. 5. Tamsulosin 0.4 mg p.o. q.h.s. 6. Torsemide 40 mg p.o. daily. 7. Albuterol p.r.n. 8. Enteric-coated aspirin 81 mg once a day. 9. Nitroglycerin sublingual p.r.n. 10. Coreg 6.25 mg p.o. b.i.d. 11. Spiriva daily inhaled. 12. Neurontin 900 mg p.o. b.i.d. 13. Albuterol p.r.n. inhalers. 14. Potassium chloride 20 mEq once a day. 15. Magnesium oxide 400 mg once a day. 16. Hydrocodone /acetaminophen p.r.n. 17. Metformin 500 mg p.o. b.i.d. ALLERGIES TO MEDICATIONS: Include LISINOPRIL, BEE VENOM, CAT HAIR, and VASQUEZ INHIBITORS. FAMILY HISTORY: Positive for cancer and cardiac disease. No family history of stroke. No diabetes. SOCIAL HISTORY: The patient smokes 1-1/2 pack of cigarettes per day. He does not abuse alcohol, no illicit drugs. He is single and lives alone. He is . He previously worked in heating and air conditioning, but because of his physical infirmity he was unable to continue that. REVIEW OF SYSTEMS: He denies vomiting, coughing up blood, bright red blood per rectum, bleeding stomach ulcers, cholelithiasis, asthma. He does use home oxygen for his COPD 2 L continuously. He denies tuberculosis. He has had pneumonia, not requiring hospitalization. He has sleep apnea, noncompliant with positive pressure ventilation. He has diabetes, hypertension. He has had prior IL, congestive heart failure, cardiac surgery with stenting. He denies palpitations or murmurs. He has a history of anxiety. He denies lupus, psoriasis, seizures, Parkinson's disease, myasthenia gravis, thyroid disorders, liver disorders, kidney disorders, He has chronic lower extremity edema, left leg greater than right post fem-pop bypass in the past. He has a history of GERD, which is treated with PPI. He has a history of PVD, status post left fem- pop bypass previously. All other review of systems are negative except as described above. PHYSICAL EXAMINATION: Height 5 feet 10 inches, weight 235 pounds, temperature 98.4 degrees, pulse 68, blood pressure 122/61, respiratory rate 18. On general exam, he is a chronically ill-appearing gentleman who appears older than his stated age in no acute distress at rest. HEENT shows the cranium is normocephalic and atraumatic, dry mucosal membranes. Neck veins reveal JVP of 11 cm. No carotid bruits visible. Skin warm and perfused. The affect is appropriate. He appears oriented. He does appear tired. Minor kyphoscoliosis on back exam. Lungs reveal a few rhonchi bilaterally. Cardiac exam: S1 and S2 , regular rate, soft holosystolic murmur heard without radiation. There is no rub, no gallop. PMI is nondisplaced. Abdomen: Soft, nondistended, appears benign. Extremities: Left lower extremity with 2-3+ edema and right lower extremity with 1+ lower extremity edema. Pulses are limited, but he seems to be perfused distally. DIAGNOSTIC STUDIES/LAB DATA: A 12-lead EKG reviewed from 06/11/17. It shows sinus rhythm at rate 62 beats per minute with a right bundle branch block, inferior IL. Echocardiogram completed earlier today as above. White blood cell count 5.5, hematocrit 26, platelet count 117, carbon monoxide screen 4.1. Sodium 135, potassium 3.8, chloride 95, bicarbonate 36, BUN 14, creatinine 1.10. IMPRESSION: Mr. Chen is a 67-year-old gentleman with known coronary artery disease with stable [id number]-[id number] depressed left ventricular ejection fraction being admitted with volume overload as well as prior right facial numbness, which resolved. His volume overload is likely related to a recent dietary sodium indiscretion, which he does seem to admit to as well as chronic NSAID use. Additionally, he is likely developing a cor pulmonale physiology from his severe chronic obstructive pulmonary disease with worsening of his baseline tricuspid regurgitation and there is likely at least a component of high output failure physiology from his anemia. I have discussed this in detail with the patient. We are making the following recommendations with which he is in agreement. RECOMMENDATIONS: 1. I agree with continuing the Lasix 40 mg IV b.i.d. for 48 hours and watch renal function including electrolytes with potassium, magnesium, bicarbonate closely. Following that, we would recommend resume outpatient torsemide with an increase to 60 mg p.o. qd. 2. For his history of wapl-ry-srligurc ischemic cardiomyopathy post BMS, PCI in 04/16/15, the patient will continue aspirin, Coreg, statin and consider outpatient ARB. He may continue the Plavix, which I suspect he is on for his chronic PVD. 3. Prior right facial numbness and dropping objects which prompted this admission as per the neurology and oncology services. I have prior discussed the case with Dr. Linares and Dr. Iyer of those services respectively. 4. As noted above, I do wonder if the patient may benefit from transfusing to keep his hematocrit greater than 27 as there may be an element of high output heart failure physiology contributing. Decision to transfuse or not will be deferred to his attending hemtalogy/oncology service. 5. Discontinue cigarette smoking. 6. The patient may follow up with his usual city mail carrier, Dr. Delacruz, following discharge. Many thanks for this kind cardiac consultation opportunity. Please do not hesitate to contact me if you have any questions or concerns regarding this patient's cardiovascular consultative care. [id number]/CPS #: [id number] MTDD
[2017-06-13 05:58] LABS: ABS Basophils 0.1 10^3/ul (0-0.2); ABS Eosinophils 0 10^3/ul (0-0.6); ABS Lymphocytes 0.8 10^3/ul (1.0-4.8); ABS Neutrophils 3.6 10^3/ul (1.5-7.7); ABS Nucleated RBC 0 10^3/ul; Eosinophil % 0.4 % (0-6); Hematocrit 25 % (42-52); Hemoglobin 8.6 g/dl (14.0-18.0); Lymphocyte % 14.2 % (25-47); Mean Corpuscular HGB Conc 34 g/dl (31-36); Mean Corpuscular Hemoglobin 34 pg (27-31); Mean Corpuscular Volume 100 fL (80-94); Mean Platelet Volume 9 um3 (7.4-10.4); Nucleated Red Blood Cells % 0.5; Platelet Count 119 10^3/ul (150-450); Red Blood Count 2.51 10^6/ul (4.0-5.4); Red Cell Distribution Width 28 % (10.5-15); White Blood Count 5.4 10^3/ul (3.5-10.8)
[2017-06-13 06:08] LABS: EGFR Non-African American 74.8 (>60)
[2017-06-13] MEDS: Tiotropium CAP.INH* CAP.INH/18 MCG (USE ORDER SET !) INH SCH (07:47)
[2017-06-13] MEDS: Insulin LISPRO* 1 UNITS UNIT SUBCUT SCH ×4 (08:26→21:41)
[2017-06-13] MEDS: Ibuprofen TAB* 600 MG PO PRN (08:44)
[2017-06-13] MEDS: Morphine TAB Extended Release (*) 15 MG TAB.ER PO SCH ×3 (08:45→21:36)
[2017-06-13] MEDS: Nicotine PATCH 21 MG/24 HR* PATCH TRANSDERM SCH (08:45)
[2017-06-13] MEDS: Furosemide IV* 10 MG/ML VIAL (40 MG) IV SCH ×2 (08:45→18:10)
[2017-06-13] MEDS: Magnesium Oxide TAB* 400 MG PO SCH (08:46)
[2017-06-13] MEDS: Potassium Chlor TAB* 20 MEQ TAB.ER PO SCH (08:46)
[2017-06-13] MEDS: Gabapentin CAP(*) 400 MG PO SCH ×2 (08:46→21:36)
[2017-06-13] MEDS: Amiodarone TAB* 200 MG PO SCH (08:46)
[2017-06-13] MEDS: CMC: Pantoprazole TAB (NF) 40 MG TAB PO SCH (08:46)
[2017-06-13] MEDS: Aspirin EC Low Dose* 81 MG TAB.EC PO SCH (08:46)
[2017-06-13] MEDS: Carvedilol TAB* 6.25 MG PO SCH ×2 (08:46→21:36)
[2017-06-13] MEDS: HYDROcodone/ACETAMIN 5-325 MG* 1 TAB PO PRN ×2 (08:46→19:17)
[2017-06-13] MEDS: Artificial Tears* 15 ML BTL LEFT EYE SCH ×4 (08:47→21:35)
[2017-06-13] MEDS: metFORMIN* 500 MG TAB PO SCH ×2 (08:47→18:10)
[2017-06-13] MEDS: Clopidogrel TAB* 75 MG PO SCH (08:47)
[2017-06-13] MEDS: Neomycin/Polymy/Dex OPHTH.OIN* 3.5 GM LEFT EYE SCH ×2 (08:47→21:39)
[2017-06-13] MEDS ORDERED: Furosemide IV* 10 MG/ML VIAL (40 MG) IV ONE (11:01)
[2017-06-13] MEDS: Enoxaparin(*) 40 MG/0.4 ML SYR SUBCUT SCH (15:52)
[2017-06-13] MEDS: Tamsulosin CAP* 0.4 MG PO SCH (21:36)
[2017-06-13] MEDS: Atorvastatin* 80 MG TAB PO SCH (21:36)
[2017-06-13] MEDS: traZODone TAB* 100 MG PO SCH (21:36)
[2017-06-13] MEDS: Insulin GLARGINE(*) 1 UNITS UNIT SUBCUT SCH (21:40)
[2017-06-13] MEDS: Nicotine Patch Removal NOTE FOLLOW UP SCH (21:45)
[2017-06-14 06:24] LABS: EGFR Non-African American 78.4 (>60)
[2017-06-14] MEDS: Tiotropium CAP.INH* CAP.INH/18 MCG (USE ORDER SET !) INH SCH (07:49)
[2017-06-14] MEDS: Insulin LISPRO* 1 UNITS UNIT SUBCUT SCH ×4 (08:56→21:37)
[2017-06-14] MEDS: metFORMIN* 500 MG TAB PO SCH ×2 (09:04→17:42)
[2017-06-14] MEDS: Potassium Chlor TAB* 20 MEQ TAB.ER PO SCH (09:04)
[2017-06-14] MEDS: Morphine TAB Extended Release (*) 15 MG TAB.ER PO SCH ×3 (09:04→21:36)
[2017-06-14] MEDS: Clopidogrel TAB* 75 MG PO SCH (09:05)
[2017-06-14] MEDS: Magnesium Oxide TAB* 400 MG PO SCH (09:05)
[2017-06-14] MEDS: Aspirin EC Low Dose* 81 MG TAB.EC PO SCH (09:05)
[2017-06-14] MEDS: Artificial Tears* 15 ML BTL LEFT EYE SCH ×4 (09:05→21:34)
[2017-06-14] MEDS: CMC: Pantoprazole TAB (NF) 40 MG TAB PO SCH (09:05)
[2017-06-14] MEDS: Gabapentin CAP(*) 400 MG PO SCH ×2 (09:05→21:37)
[2017-06-14] MEDS: Amiodarone TAB* 200 MG PO SCH (09:05)
[2017-06-14] MEDS: Carvedilol TAB* 6.25 MG PO SCH ×2 (09:05→21:37)
[2017-06-14] MEDS: Furosemide IV* 10 MG/ML VIAL (40 MG) IV SCH ×2 (09:07→17:41)
[2017-06-14] MEDS: Docusate CAP* 100 MG PO PRN ×2 (09:10→17:42)
[2017-06-14] MEDS: Ibuprofen TAB* 600 MG PO PRN ×2 (09:10→17:42)
[2017-06-14] MEDS: HYDROcodone/ACETAMIN 5-325 MG* 1 TAB PO PRN ×2 (09:10→17:42)
[2017-06-14] MEDS: Neomycin/Polymy/Dex OPHTH.OIN* 3.5 GM LEFT EYE SCH ×2 (09:12→21:35)
[2017-06-14] MEDS: Nicotine PATCH 21 MG/24 HR* PATCH TRANSDERM SCH (09:16)
[2017-06-14] MEDS: Clindamycin 300 MG IVPREMIX(* 300 MG/50 ML SDV IV SCH ×2 (14:17→19:19)
[2017-06-14] MEDS: Enoxaparin(*) 40 MG/0.4 ML SYR SUBCUT SCH (15:36)
[2017-06-14] MEDS ORDERED: Magnesium Hydroxide LIQ* 30 ML UDC PO ONE (17:32)
[2017-06-14] MEDS ORDERED: Magnesium Hydroxide LIQ* 30 ML UDC ONE (17:35)
--- NOTE | 2017-06-14 19:09 | RAD ---
Indication: Leg edema. Duplex Doppler sonography of the deep venous system of the left lower extremity deep venous system was performed. Bilaterally the common femoral veins appear patent and compressible. Left proximal greater saphenous vein, proximal deep femoral vein, femoral vein, popliteal vein, posterior tibial veins and peroneal veins appear patent and compressible. Flow could be noted in the distal femoral vein however due to the deep nature of the vessel compressibility could not be determined. Peroneal veins are not visualized. IMPRESSION: NO EVIDENCE OF DEEP VENOUS THROMBOSIS IS IDENTIFIED.
[2017-06-14] MEDS: Atorvastatin* 80 MG TAB PO SCH (21:36)
[2017-06-14] MEDS: Tamsulosin CAP* 0.4 MG PO SCH (21:36)
[2017-06-14] MEDS: traZODone TAB* 100 MG PO SCH (21:36)
[2017-06-14] MEDS: Ciprofloxacin TAB* 500 MG PO SCH (21:36)
[2017-06-14] MEDS: Insulin GLARGINE(*) 1 UNITS UNIT SUBCUT SCH (21:37)
[2017-06-14] MEDS: Nicotine Patch Removal NOTE FOLLOW UP SCH (21:38)
[2017-06-15] MEDS: Clindamycin 300 MG IVPREMIX(* 300 MG/50 ML SDV IV SCH ×4 (00:43→19:47)
[2017-06-15 05:29] LABS: EGFR Non-African American 69.9 (>60)
[2017-06-15 05:34] LABS: ABS Basophils 0.1 10^3/ul (0-0.2); ABS Eosinophils 0 10^3/ul (0-0.6); ABS Lymphocytes 0.8 10^3/ul (1.0-4.8); ABS Monocytes 1.2 10^3/ul (0-0.8); ABS Neutrophils 4.2 10^3/ul (1.5-7.7); ABS Nucleated RBC 0 10^3/ul; Eosinophil % 0.6 % (0-6); Hematocrit 27 % (42-52); Hemoglobin 9.2 g/dl (14.0-18.0); Mean Corpuscular HGB Conc 34 g/dl (31-36); Mean Corpuscular Hemoglobin 34 pg (27-31); Mean Corpuscular Volume 99 fL (80-94); Mean Platelet Volume 9 um3 (7.4-10.4); Nucleated Red Blood Cells % 0.1; Platelet Count 152 10^3/ul (150-450); Red Blood Count 2.75 10^6/ul (4.0-5.4); Red Cell Distribution Width 28 % (10.5-15); White Blood Count 6.4 10^3/ul (3.5-10.8)
[2017-06-15] MEDS: Tiotropium CAP.INH* CAP.INH/18 MCG (USE ORDER SET !) INH SCH (07:31)
[2017-06-15] MEDS: CMC: Pantoprazole TAB (NF) 40 MG TAB PO SCH (08:16)
[2017-06-15] MEDS: Gabapentin CAP(*) 400 MG PO SCH ×2 (08:16→21:24)
[2017-06-15] MEDS: Ciprofloxacin TAB* 500 MG PO SCH ×2 (08:16→21:24)
[2017-06-15] MEDS: Magnesium Oxide TAB* 400 MG PO SCH (08:17)
[2017-06-15] MEDS: Carvedilol TAB* 6.25 MG PO SCH (08:17)
[2017-06-15] MEDS: Potassium Chlor TAB* 20 MEQ TAB.ER PO SCH (08:17)
[2017-06-15] MEDS: Amiodarone TAB* 200 MG PO SCH (08:17)
[2017-06-15] MEDS: Morphine TAB Extended Release (*) 15 MG TAB.ER PO SCH ×3 (08:17→21:25)
[2017-06-15] MEDS: metFORMIN* 500 MG TAB PO SCH ×2 (08:17→16:32)
[2017-06-15] MEDS: Docusate CAP* 100 MG PO PRN (08:17)
[2017-06-15] MEDS: Artificial Tears* 15 ML BTL LEFT EYE SCH ×4 (08:17→21:23)
[2017-06-15] MEDS: Clopidogrel TAB* 75 MG PO SCH (08:17)
[2017-06-15] MEDS: HYDROcodone/ACETAMIN 5-325 MG* 1 TAB PO PRN ×2 (08:17→16:33)
[2017-06-15] MEDS: Aspirin EC Low Dose* 81 MG TAB.EC PO SCH (08:17)
[2017-06-15] MEDS: Neomycin/Polymy/Dex OPHTH.OIN* 3.5 GM LEFT EYE SCH ×2 (08:18→21:23)
[2017-06-15] MEDS: Nicotine PATCH 21 MG/24 HR* PATCH TRANSDERM SCH (08:18)
[2017-06-15] MEDS: Insulin LISPRO* 1 UNITS UNIT SUBCUT SCH ×4 (08:18→21:25)
[2017-06-15] MEDS: Furosemide IV* 10 MG/ML VIAL (40 MG) IV SCH ×2 (08:18→16:28)
[2017-06-15] MEDS: Ibuprofen TAB* 600 MG PO PRN (08:21)
--- NOTE | 2017-06-15 14:35 | RAD ---
INDICATION: Question osteomyelitis LEFT lower leg. Redness and swelling for 2 weeks. History of lung cancer and carcinoid syndrome. COMPARISON: No relevant prior exams available on the [facility] [place] [facility] PACS for comparison. TECHNIQUE: 20.230 mCi of Tc-99m MDP were injected IV. Angiographic and blood pool images of the bilateral distal lower legs, ankles, feet were obtained. Approximately 2 hours after injection, anterior and posterior whole body images and spot images of the distal lower legs, ankles, feet were obtained. FINDINGS: There is hyperemia of the visualized distal LEFT lower leg, ankle, and foot. Diffuse mild increased soft tissue uptake in the same distribution. On the delayed images there is focal increased activity at the level of the anterior margin of the calcaneus laterally. On the whole body images there is increased uptake at level of the anterior segment of the LEFT first rib. Mild increased uptake at the RIGHT hip corresponds with marked degenerative arthropathy on CT. The kidneys are normal in size and position and without evidence for obstructive uropathy. IMPRESSION: 1. The consultation of findings at the LEFT lower extremity is suspicious for cellulitis at the distal leg, ankle, and foot and potential osteomyelitis at the anterior aspect of the calcaneus. Radiographs of the LEFT foot suggested to assess for radiographic stigmata of osteomyelitis and exclude other etiology for increased uptake at the calcaneus including fracture, calcaneal cuboid degenerative arthropathy, or avascular necrosis. 2. Nonspecific increased uptake at the LEFT first rib concerning for potential metastasis for which CT is suggested for further assessment. No corresponding lesion evident at this level on June 11, 2017 portable chest radiograph or May 04, [address] CPT II: CPT II Codes: 3570F
[2017-06-15] MEDS: Enoxaparin(*) 40 MG/0.4 ML SYR SUBCUT SCH (16:33)
--- NOTE | 2017-06-15 18:12 | PN ---
Subjective Date of Service: 06/15/17 Interval History: Pt is concerned about his chronic leg edema getting much worse on left. Objective Active Medications: Hydrocodone Bitart/Acetaminophen ([place] 5-325 Tab*) 1 tab PO Q6H PRN PRN Reason: PAIN Last Admin: 06/15/17 16:33 Dose: 1 tab Albuterol (Ventolin 2.5 Mg/3 Ml Neb.Luz Elena*) 2.5 mg INH QID PRN PRN Reason: SHORTNESS OF BREATH Last Admin: 06/12/17 05:55 Dose: 2.5 mg Amiodarone HCl (Cordarone Tab*) 100 mg PO DAILY [facility] Aspirin (Aspirin Ec Low Dose*) 81 mg PO QAM [facility] Last Admin: 06/15/17 08:17 Dose: 81 mg Atorvastatin Calcium (Lipitor*) 80 mg PO BEDTIME [facility] Last Admin: 06/14/17 21:36 Dose: 80 mg Carvedilol (Coreg Tab*) 3.125 mg PO BID [facility] Ciprofloxacin (Cipro Tab*) 500 mg PO Q12HR [facility] Last Admin: 06/15/17 08:16 Dose: 500 mg Clopidogrel Bisulfate (Plavix Tab*) 75 mg PO QAM [facility] Last Admin: 06/15/17 08:17 Dose: 75 mg Docusate Sodium (Colace Cap*) 200 mg PO BID PRN PRN Reason: CONSTIPATION Last Admin: 06/15/17 08:17 Dose: 200 mg Enoxaparin Sodium (Lovenox(*)) 40 mg SUBCUT Q24H [facility] Last Admin: 06/15/17 16:33 Dose: 40 mg Furosemide (Lasix Iv*) 40 mg IV 0800,1700 [facility] Last Admin: 06/15/17 16:28 Dose: Not Given Gabapentin (Neurontin Cap(*)) 800 mg PO BID [facility] Last Admin: 06/15/17 08:16 Dose: 800 mg Heparin Sodium (Porcine) (Heparin Flush Port (Ivad)) 5 ml FLUSH DAILY [facility] PRN Reason: Protocol Last Admin: 06/15/17 09:20 Dose: 5 ml Clindamycin HCl/Dextrose (Cleocin 300 Mg Ivpemix(*)) 300 mg in 50 mls @ 200 mls /hr IV Q6H [facility] Last Admin: 06/15/17 14:10 Dose: 200 mls/hr Ibuprofen (Motrin Tab*) 600 mg PO Q8H PRN PRN Reason: PAIN Last Admin: 06/15/17 08:21 Dose: 600 mg Insulin Glargine (Lantus(*)) 26 units 0.24 units/kg (26 units) SUBCUT 2100 [facility] Last Admin: 06/14/17 21:37 Dose: 26 units Insulin Human Lispro (Humalog*) 0 units SUBCUT ACHS [facility] PRN Reason: Protocol Last Admin: 06/15/17 16:40 Dose: Not Given Magnesium Oxide (Magox 400 Tab*) 400 mg PO DAILY [facility] Last Admin: 06/15/17 08:17 Dose: 400 mg Metformin HCl (Glucophage*) 500 mg PO 0800,1700 [facility] Last Admin: 06/15/17 16:32 Dose: 500 mg Morphine Sulfate (Ms Contin(*)) 15 mg PO TID [facility] Last Admin: 06/15/17 14:10 Dose: 15 mg Neomycin/Polymyxin/Dexamethasone (Maxitrol 0.1% Opth*) 1 applic LEFT EYE BID [facility] Last Admin: 06/15/17 08:18 Dose: 1 dose Nicotine (Nicotine Patch 21 Mg/24 Hr*) 1 patch TRANSDERM DAILY@0900 [facility] Last Admin: 06/15/17 08:18 Dose: 1 patch Nitroglycerin (Nitroglycerin Tab 0.4 Mg*) 0.4 mg SL Q5M PRN PRN Reason: PAIN - CHEST Pantoprazole Sodium (Protonix Tab (Nf)) 40 mg PO DAILY [facility] Last Admin: 06/15/17 08:16 Dose: 40 mg Pharmacy Profile Note (Nicotine Patch Removal Note*) 1 note FOLLOW UP 2099 [facility] Last Admin: 06/14/17 21:38 Dose: Not Given Polyvinyl Alcohol (Polyvinyl Alcohol 1.4% Opth*) 1 drop LEFT EYE QID [facility] Last Admin: 06/15/17 16:32 Dose: 1 drop Potassium Chloride (Klor Con Er Tab*) 20 meq PO DAILY [facility] Last Admin: 06/15/17 08:17 Dose: 20 meq Tamsulosin HCl (Flomax Cap*) 0.4 mg PO BEDTIME [facility] Last Admin: 06/14/17 21:36 Dose: 0.4 mg Tiotropium [place] (Spiriva Cap.Inh*) 1 cap INH DAILY [facility] Last Admin: 06/15/17 07:31 Dose: 1 cap Trazodone HCl (Desyrel Tab*) 100 mg PO BEDTIME [facility] Last Admin: 06/14/17 21:36 Dose: 100 mg Vital Signs - 8 hr 06/15/17 06/15/17 06/15/17 10:41 11:08 14:10 Temperature 97.5 F Pulse Rate 57 Respiratory 18 20 20 Rate Blood Pressure 97/48 (mmHg) O2 Sat by Pulse 98 Oximetry 06/15/17 06/15/17 16:28 16:33 Temperature 98.3 F Pulse Rate 70 Respiratory 18 20 Rate Blood Pressure 118/58 (mmHg) O2 Sat by Pulse 96 Oximetry Oxygen Devices in Use Now: Nasal Cannula Appearance: 67 yo M in nAD, AAOx3 Eyes: No Scleral Icterus, PERRLA Ears/Nose/Mouth/Throat: NL Teeth, Lips, Gums, Mucous Membranes Moist Neck: NL Appearance and Movements; NL JVP, Trachea Midline Respiratory: Symmetrical Chest Expansion and Respiratory Effort, - - crackles at b/l bases Cardiovascular: NL Sounds; No Murmurs; No JVD, RRR Abdominal: NL Sounds; No Tenderness; No Distention, No Hepatosplenomegaly Lymphatic: No Cervical Adenopathy Extremities: No Clubbing, Cyanosis, - - b/l leg edema , left leg at +2 pitting edema to level of left groin with blisters at 1 cm noted on dorsum on left foot Skin: No Nodules or Sclerosis, - - see above Neurological: Alert and Oriented x 3, NL Muscle Strength and Tone Result Diagrams: 06/15/17 05:00 06/15/17 05:00 Additional Lab and Data: Lab Results 06/11/17 06/11/17 Range/Units 12:47 12:47 WBC 5.9 (3.5-10.8) 10^3/ul RBC 2.38 L (4.0-5.4) 10^6/ul Hgb 8.0 L (14.0-18.0) g/dl Hct 24 L (42-52) % MCV 100 H (80-94) fL MCH 34 H (27-31) pg MCHC 34 (31-36) g/dl RDW 28 H (10.5-15) % Plt Count 99 L (150-450) 10^3/ul MPV 9 (7.4-10.4) um3 Neut % (Auto) Pending Lymph % (Auto) Pending [place] % (Auto) Pending Eos % (Auto) Pending Baso % (Auto) Pending Absolute Neuts (auto) Pending Absolute Lymphs (auto) Pending Absolute Monos (auto) Pending Absolute Eos (auto) Pending Absolute Basos (auto) Pending Absolute Nucleated RBC Pending Nucleated RBC % Pending INR (Anticoag Therapy) 1.02 (0.77-1.02) APTT 32.5 (26.0-36.3) seconds Microbiology and Other Data: Microbiology 06/11/17 16:15 Aerobic Blood Culture - Preliminary Blood Venous No Growth Day 4 Anaerobic Blood Culture - Preliminary No Growth Day 4 06/11/17 22:45 Urine Culture - Final Urine No Growth (<1,000 CFU/mL) Assess/Plan/Problems-Billing Assessment: 67 yo M with h/o DM, chronic leg edema, CAD, fem-pop bypass, bladder ca, 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 Educated pt about the need to have his leg elevated at all times when not walking (2) Acute on chronic diastolic CHF (congestive heart failure) Comment: as per DR. Lee diuretic dose was adjusted. Coreg dose lowered due to low SBP., EF noted to be 45% with mod MR and mod TR (3) Diabetes Comment: Type II DM. Sugars are under fair control. Continue lispro sliding scale,lantus, metformin (4) Anemia Comment: normocytic , chronic, at baseline (5) Ventricular tachycardia Comment: Per cardiology. Continue amiodarone at a lower dose due to hypotension and replete magnesium. (6) COPD (chronic obstructive pulmonary disease) Comment: No signs of exacerbation at this time-no wheezing or tightness. No need for steroids currently. (7) DVT prophylaxis Comment: Lovenox Status and Disposition: inpatient
[2017-06-15] MEDS: Atorvastatin* 80 MG TAB PO SCH (21:24)
[2017-06-15] MEDS: traZODone TAB* 100 MG PO SCH (21:24)
[2017-06-15] MEDS: Tamsulosin CAP* 0.4 MG PO SCH (21:25)
[2017-06-15] MEDS: Insulin GLARGINE(*) 1 UNITS UNIT SUBCUT SCH (21:25)
[2017-06-15] MEDS: Nicotine Patch Removal NOTE FOLLOW UP SCH (21:26)
--- NOTE | 2017-06-15 21:49 | RAD ---
INDICATION: Trauma. COMPARISON: Bone scan dated June 15, 2017 that demonstrated increased uptake at the left calcaneus TECHNIQUE: 2 views of the left foot were obtained. FINDINGS: Lateral view imaging indicates the presence of past planus. The adequately corticated bones are otherwise properly aligned. There is mild sclerotic change of the articulating surface at the talo navicular joint. No fracture, dislocation or focal bony abnormality is seen. IMPRESSION: PES PLANUS WITH MILDLY INCREASED SCLEROTIC CHANGE AT THE ARTICULATING SURFACE OF THE TALONAVICULAR JOINT.
[2017-06-16] MEDS: Clindamycin 300 MG IVPREMIX(* 300 MG/50 ML SDV IV SCH ×4 (01:06→19:42)
[2017-06-16] MEDS: Tiotropium CAP.INH* CAP.INH/18 MCG (USE ORDER SET !) INH SCH (07:48)
[2017-06-16] MEDS: Insulin LISPRO* 1 UNITS UNIT SUBCUT SCH ×4 (09:30→20:41)
[2017-06-16] MEDS: Clopidogrel TAB* 75 MG PO SCH (09:47)
[2017-06-16] MEDS: Aspirin EC Low Dose* 81 MG TAB.EC PO SCH (09:47)
[2017-06-16] MEDS: CMC: Pantoprazole TAB (NF) 40 MG TAB PO SCH (09:47)
[2017-06-16] MEDS: Gabapentin CAP(*) 400 MG PO SCH ×2 (09:47→21:13)
[2017-06-16] MEDS: HYDROcodone/ACETAMIN 5-325 MG* 1 TAB PO PRN (09:48)
[2017-06-16] MEDS: Potassium Chlor TAB* 20 MEQ TAB.ER PO SCH (09:48)
[2017-06-16] MEDS: Morphine TAB Extended Release (*) 15 MG TAB.ER PO SCH ×3 (09:48→21:14)
[2017-06-16] MEDS: Ibuprofen TAB* 600 MG PO PRN (09:48)
[2017-06-16] MEDS: Magnesium Oxide TAB* 400 MG PO SCH (09:49)
[2017-06-16] MEDS: Nicotine PATCH 21 MG/24 HR* PATCH TRANSDERM SCH (09:49)
[2017-06-16] MEDS: Ciprofloxacin TAB* 500 MG PO SCH ×2 (09:49→21:12)
[2017-06-16] MEDS: Carvedilol TAB* 3.125 MG PO SCH ×2 (09:49→21:12)
[2017-06-16] MEDS: metFORMIN* 500 MG TAB PO SCH ×2 (09:49→17:29)
[2017-06-16] MEDS: Artificial Tears* 15 ML BTL LEFT EYE SCH ×4 (09:49→21:17)
[2017-06-16] MEDS: Neomycin/Polymy/Dex OPHTH.OIN* 3.5 GM LEFT EYE SCH ×2 (09:50→21:17)
[2017-06-16 09:51] LABS: EGFR Non-African American 92.7 (>60)
[2017-06-16] MEDS: Furosemide IV* 10 MG/ML VIAL (40 MG) IV SCH ×2 (09:53→17:28)
[2017-06-16] MEDS: Docusate CAP* 100 MG PO PRN (09:59)
[2017-06-16] MEDS ORDERED: Magnesium Hydroxide LIQ* 30 ML UDC PO ONE (10:28)
[2017-06-16] MEDS: Magnesium Hydroxide LIQ* 30 ML UDC PO PRN (13:02)
[2017-06-16] MEDS: Enoxaparin(*) 40 MG/0.4 ML SYR SUBCUT SCH (17:28)
[2017-06-16] MEDS: Albuterol 2.5 MG/3 ML NEB.SOL* (0.083%) INH PRN (18:54)
--- NOTE | 2017-06-16 19:34 | PN ---
Subjective Date of Service: 06/16/17 Interval History: Pt feels a little better. Had PT eval and was offered a bed at [facility] Objective Active Medications: Hydrocodone Bitart/Acetaminophen ([place] 5-325 Tab*) 1 tab PO Q6H PRN PRN Reason: PAIN Last Admin: 06/16/17 09:48 Dose: 1 tab Albuterol (Ventolin 2.5 Mg/3 Ml Neb.Luz Elena*) 2.5 mg INH QID PRN PRN Reason: SHORTNESS OF BREATH Last Admin: 06/16/17 18:54 Dose: 2.5 mg Amiodarone HCl (Cordarone Tab*) 100 mg PO DAILY [facility] Aspirin (Aspirin Ec Low Dose*) 81 mg PO QAM [facility] Last Admin: 06/16/17 09:47 Dose: 81 mg Atorvastatin Calcium (Lipitor*) 80 mg PO BEDTIME [facility] Last Admin: 06/15/17 21:24 Dose: 80 mg Carvedilol (Coreg Tab*) 3.125 mg PO BID [facility] Last Admin: 06/16/17 09:49 Dose: 3.125 mg Ciprofloxacin (Cipro Tab*) 500 mg PO Q12HR [facility] Last Admin: 06/16/17 09:49 Dose: 500 mg Clopidogrel Bisulfate (Plavix Tab*) 75 mg PO QAM [facility] Last Admin: 06/16/17 09:47 Dose: 75 mg Docusate Sodium (Colace Cap*) 200 mg PO BID PRN PRN Reason: CONSTIPATION Last Admin: 06/16/17 09:59 Dose: 200 mg Enoxaparin Sodium (Lovenox(*)) 40 mg SUBCUT Q24H [facility] Last Admin: 06/16/17 17:28 Dose: 40 mg Furosemide (Lasix Iv*) 40 mg IV 0800,1700 [facility] Last Admin: 06/16/17 17:28 Dose: 40 mg Gabapentin (Neurontin Cap(*)) 800 mg PO BID [facility] Last Admin: 06/16/17 09:47 Dose: 800 mg Heparin Sodium (Porcine) (Heparin Flush Port (Ivad)) 5 ml FLUSH DAILY [facility] PRN Reason: Protocol Last Admin: 06/16/17 10:00 Dose: 5 ml Clindamycin HCl/Dextrose (Cleocin 300 Mg Ivpemix(*)) 300 mg in 50 mls @ 200 mls /hr IV Q6H [facility] Last Admin: 06/16/17 13:44 Dose: 200 mls/hr Ibuprofen (Motrin Tab*) 600 mg PO Q8H PRN PRN Reason: PAIN Last Admin: 06/16/17 09:48 Dose: 600 mg Insulin Glargine (Lantus(*)) 26 units 0.24 units/kg (26 units) SUBCUT 2100 [facility] Last Admin: 06/15/17 21:25 Dose: 26 units Insulin Human Lispro (Humalog*) 0 units SUBCUT ACHS [facility] PRN Reason: Protocol Last Admin: 06/16/17 17:09 Dose: Not Given Magnesium Hydroxide (Milk Of Magnesia Liq*) 30 ml PO Q6H PRN PRN Reason: CONSTIPATION Last Admin: 06/16/17 13:02 Dose: 30 ml Magnesium Oxide (Magox 400 Tab*) 400 mg PO DAILY [facility] Last Admin: 06/16/17 09:49 Dose: 400 mg Metformin HCl (Glucophage*) 500 mg PO 0800,1700 [facility] Last Admin: 06/16/17 17:29 Dose: 500 mg Morphine Sulfate (Ms Contin(*)) 15 mg PO TID [facility] Last Admin: 06/16/17 13:44 Dose: 15 mg Neomycin/Polymyxin/Dexamethasone (Maxitrol 0.1% Opth*) 1 applic LEFT EYE BID [facility] Last Admin: 06/16/17 09:50 Dose: 1 dose Nicotine (Nicotine Patch 21 Mg/24 Hr*) 1 patch TRANSDERM DAILY@0900 [facility] Last Admin: 06/16/17 09:49 Dose: 1 patch Nitroglycerin (Nitroglycerin Tab 0.4 Mg*) 0.4 mg SL Q5M PRN PRN Reason: PAIN - CHEST Pantoprazole Sodium (Protonix Tab (Nf)) 40 mg PO DAILY [facility] Last Admin: 06/16/17 09:47 Dose: 40 mg Pharmacy Profile Note (Nicotine Patch Removal Note*) 1 note FOLLOW UP 2099 [facility] Last Admin: 06/15/17 21:26 Dose: Not Given Polyvinyl Alcohol (Polyvinyl Alcohol 1.4% Opth*) 1 drop LEFT EYE QID [facility] Last Admin: 06/16/17 17:29 Dose: 1 drop Potassium Chloride (Klor Con Er Tab*) 20 meq PO DAILY [facility] Last Admin: 06/16/17 09:48 Dose: 20 meq Tamsulosin HCl (Flomax Cap*) 0.4 mg PO BEDTIME [facility] Last Admin: 06/15/17 21:25 Dose: 0.4 mg Tiotropium [place] (Spiriva Cap.Inh*) 1 cap INH DAILY [facility] Last Admin: 06/16/17 07:48 Dose: 1 cap Trazodone HCl (Desyrel Tab*) 100 mg PO BEDTIME [facility] Last Admin: 06/15/17 21:24 Dose: 100 mg Vital Signs - 8 hr 06/16/17 06/16/17 06/16/17 11:42 13:05 13:06 Temperature 98.1 F Pulse Rate 88 Respiratory 18 18 18 Rate Blood Pressure 125/54 (mmHg) O2 Sat by Pulse Oximetry 06/16/17 06/16/17 06/16/17 13:44 17:36 19:00 Temperature Pulse Rate 69 Respiratory 16 16 18 Rate Blood Pressure (mmHg) O2 Sat by Pulse 98 Oximetry Oxygen Devices in Use Now: Nasal Cannula Appearance: 67 yo M in NAD, aAOx3 Eyes: No Scleral Icterus, PERRLA Ears/Nose/Mouth/Throat: NL Teeth, Lips, Gums, Mucous Membranes Moist Neck: NL Appearance and Movements; NL JVP, Trachea Midline Respiratory: Symmetrical Chest Expansion and Respiratory Effort, - - scant rhonchi b/l lower lungs Cardiovascular: NL Sounds; No Murmurs; No JVD, RRR Abdominal: NL Sounds; No Tenderness; No Distention Lymphatic: No Cervical Adenopathy Extremities: No Clubbing, Cyanosis, - - b/l LE edema R>L Skin: No Nodules or Sclerosis, - - cellulitis of left leg improving Neurological: Alert and Oriented x 3, NL Muscle Strength and Tone Result Diagrams: 06/15/17 05:00 06/16/17 07:25 Additional Lab and Data: Lab Results 06/11/17 06/11/17 Range/Units 12:47 12:47 WBC 5.9 (3.5-10.8) 10^3/ul RBC 2.38 L (4.0-5.4) 10^6/ul Hgb 8.0 L (14.0-18.0) g/dl Hct 24 L (42-52) % MCV 100 H (80-94) fL MCH 34 H (27-31) pg MCHC 34 (31-36) g/dl RDW 28 H (10.5-15) % Plt Count 99 L (150-450) 10^3/ul MPV 9 (7.4-10.4) um3 Neut % (Auto) Pending Lymph % (Auto) Pending [place] % (Auto) Pending Eos % (Auto) Pending Baso % (Auto) Pending Absolute Neuts (auto) Pending Absolute Lymphs (auto) Pending Absolute Monos (auto) Pending Absolute Eos (auto) Pending Absolute Basos (auto) Pending Absolute Nucleated RBC Pending Nucleated RBC % Pending INR (Anticoag Therapy) 1.02 (0.77-1.02) APTT 32.5 (26.0-36.3) seconds Microbiology and Other Data: Microbiology 06/11/17 16:15 Aerobic Blood Culture - Preliminary Blood Venous No Growth Day 4 Anaerobic Blood Culture - Preliminary No Growth Day 4 06/11/17 22:45 Urine Culture - Final Urine No Growth (<1,000 CFU/mL) Assess/Plan/Problems-Billing Assessment: 67 yo M with h/o DM, chronic leg edema, CAD, fem-pop bypass, bladder ca, 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 Educated pt about the need to have his leg elevated at all times when not walking. VASQUEZ wraps ordered (2) Acute on chronic diastolic CHF (congestive heart failure) Comment: as per DR. Lee diuretic dose was adjusted. Coreg dose lowered due to low SBP, on 06/15/17, now SBP improved. EF noted to be 45% with mod MR and mod TR (3) Diabetes Comment: Type II DM. Sugars are under fair control. Continue lispro sliding scale,lantus, metformin (4) Anemia Comment: normocytic , chronic, at baseline (5) Ventricular tachycardia Comment: Per cardiology. Continue amiodarone at a lower dose due to hypotension and replete magnesium. (6) COPD (chronic obstructive pulmonary disease) Comment: No signs of exacerbation at this time-no wheezing or tightness. No need for steroids currently. (7) DVT prophylaxis Comment: Shirleyx Status and Disposition: inpatient
[2017-06-16] MEDS: Insulin GLARGINE(*) 1 UNITS UNIT SUBCUT SCH (20:39)
[2017-06-16] MEDS: Atorvastatin* 80 MG TAB PO SCH (21:11)
[2017-06-16] MEDS: Nicotine Patch Removal NOTE FOLLOW UP SCH (21:15)
[2017-06-16] MEDS: Tamsulosin CAP* 0.4 MG PO SCH (21:15)
[2017-06-16] MEDS: traZODone TAB* 100 MG PO SCH (21:16)
[2017-06-17] MEDS: Clindamycin 300 MG IVPREMIX(* 300 MG/50 ML SDV IV SCH ×3 (01:15→13:31)
[2017-06-17] MEDS: HYDROcodone/ACETAMIN 5-325 MG* 1 TAB PO PRN ×2 (02:14→09:22)
[2017-06-17] MEDS: Furosemide IV* 10 MG/ML VIAL (40 MG) IV SCH ×2 (07:18→16:15)
[2017-06-17] MEDS: metFORMIN* 500 MG TAB PO SCH ×2 (07:18→16:16)
[2017-06-17] MEDS: Insulin LISPRO* 1 UNITS UNIT SUBCUT SCH ×4 (07:28→20:45)
[2017-06-17] MEDS: Tiotropium CAP.INH* CAP.INH/18 MCG (USE ORDER SET !) INH SCH (07:55)
[2017-06-17 09:10] LABS: Hematocrit 30 % (42-52); Hemoglobin 10.2 g/dl (14.0-18.0); Mean Corpuscular HGB Conc 34 g/dl (31-36); Mean Corpuscular Hemoglobin 33 pg (27-31); Mean Corpuscular Volume 99 fL (80-94); Mean Platelet Volume 9 um3 (7.4-10.4); Platelet Count 195 10^3/ul (150-450); Red Blood Count 3.05 10^6/ul (4.0-5.4); Red Cell Distribution Width 27 % (10.5-15); White Blood Count 7.6 10^3/ul (3.5-10.8)
[2017-06-17 09:20] LABS: EGFR Non-African American 78.4 (>60)
[2017-06-17] MEDS: Artificial Tears* 15 ML BTL LEFT EYE SCH ×4 (09:21→20:47)
[2017-06-17] MEDS: Ciprofloxacin TAB* 500 MG PO SCH ×2 (09:21→20:07)
[2017-06-17] MEDS: Potassium Chlor TAB* 20 MEQ TAB.ER PO SCH (09:21)
[2017-06-17] MEDS: Amiodarone TAB* 200 MG PO SCH (09:21)
[2017-06-17] MEDS: Neomycin/Polymy/Dex OPHTH.OIN* 3.5 GM LEFT EYE SCH ×2 (09:21→20:48)
[2017-06-17] MEDS: Clopidogrel TAB* 75 MG PO SCH (09:22)
[2017-06-17] MEDS: Magnesium Oxide TAB* 400 MG PO SCH (09:22)
[2017-06-17] MEDS: CMC: Pantoprazole TAB (NF) 40 MG TAB PO SCH (09:22)
[2017-06-17] MEDS: Gabapentin CAP(*) 400 MG PO SCH ×2 (09:22→20:07)
[2017-06-17] MEDS: Morphine TAB Extended Release (*) 15 MG TAB.ER PO SCH ×3 (09:22→20:05)
[2017-06-17] MEDS: Nicotine PATCH 21 MG/24 HR* PATCH TRANSDERM SCH (09:22)
[2017-06-17] MEDS: Aspirin EC Low Dose* 81 MG TAB.EC PO SCH (09:22)
[2017-06-17] MEDS: Carvedilol TAB* 3.125 MG PO SCH ×2 (09:23→20:06)
[2017-06-17 09:51] LABS: ABS Basophils 0.1 10^3/ul (0-0.2); ABS Eosinophils 0 10^3/ul (0-0.6); ABS Lymphocytes 0.7 10^3/ul (1.0-4.8); ABS Neutrophils 5.9 10^3/ul (1.5-7.7); ABS Nucleated RBC 0 10^3/ul; Eosinophil % 0.6 % (0-6); Lymphocyte % 8.6 % (25-47); Nucleated Red Blood Cells % 0.1; Tear Drop Cells 1+
[2017-06-17] MEDS ORDERED: Saline NASAL SPRAY 0.65%* BTL BOTH NARES PRN (10:46)
[2017-06-17] MEDS ORDERED: Clindamycin CAP* 150 MG PO SCH (14:00)
[2017-06-17] MEDS ORDERED: Alteplase (CATHFLO)* 2 MG VIAL IV ONE (14:18)
[2017-06-17] MEDS: Albuterol 2.5 MG/3 ML NEB.SOL* (0.083%) INH PRN ×2 (15:57→22:25)
[2017-06-17] MEDS: Enoxaparin(*) 40 MG/0.4 ML SYR SUBCUT SCH (16:15)
[2017-06-17] MEDS: Lidocaine PATCH 5%* 1 PATCH TRANSDERM SCH ×3 (20:00→23:42)
[2017-06-17] MEDS: Atorvastatin* 80 MG TAB PO SCH (20:06)
[2017-06-17] MEDS: Tamsulosin CAP* 0.4 MG PO SCH (20:08)
[2017-06-17] MEDS: Nicotine Patch Removal NOTE FOLLOW UP SCH (20:08)
[2017-06-17] MEDS: traZODone TAB* 100 MG PO SCH (20:09)
[2017-06-17] MEDS: Magnesium Hydroxide LIQ* 30 ML UDC PO PRN (20:10)
[2017-06-17] MEDS: Ibuprofen TAB* 600 MG PO PRN (20:43)
[2017-06-17] MEDS: Insulin GLARGINE(*) 1 UNITS UNIT SUBCUT SCH (20:46)
--- NOTE | 2017-06-17 21:18 | PN ---
Subjective Date of Service: 06/17/17 Interval History: Patient complains of ongoing pain in left foot and right hip. Patient denies other complaints including CP, SOB, F/C N/V, Abdominal pain, diarrhea, constipation, pain with urination. Increased swelling in LE, or other pain. Patient states that he has been keeping his feet elevated as often as possible and has changed his wheelchair around to accommodate elevation of his LE. Patient states that he looks forward to working with PT and going to rehab. Patient states that he uses a compression boot at home for edema. Patient complains of nasal stuffiness from his nasal cannula and requests nasal spray. Family History: Unchanged from Admission Social History: Unchanged from Admission Past Medical History: Unchanged from Admission Objective Active Medications: Hydrocodone Bitart/Acetaminophen ([place] 5-325 Tab*) 1 tab PO Q6H PRN PRN Reason: PAIN Last Admin: 06/17/17 09:22 Dose: 1 tab Albuterol (Ventolin 2.5 Mg/3 Ml Neb.Luz Elena*) 2.5 mg INH QID PRN PRN Reason: SHORTNESS OF BREATH Last Admin: 06/17/17 15:57 Dose: 2.5 mg Amiodarone HCl (Cordarone Tab*) 100 mg PO DAILY [facility] Last Admin: 06/17/17 09:21 Dose: 100 mg Aspirin (Aspirin Ec Low Dose*) 81 mg PO QAM [facility] Last Admin: 06/17/17 09:22 Dose: 81 mg Atorvastatin Calcium (Lipitor*) 80 mg PO BEDTIME [facility] Last Admin: 06/17/17 20:06 Dose: 80 mg Carvedilol (Coreg Tab*) 3.125 mg PO BID [facility] Last Admin: 06/17/17 20:06 Dose: 3.125 mg Ciprofloxacin (Cipro Tab*) 500 mg PO Q12HR [facility] Last Admin: 06/17/17 20:07 Dose: 500 mg Clindamycin HCl (Cleocin Cap*) 300 mg PO Q8HR [facility] Clopidogrel Bisulfate (Plavix Tab*) 75 mg PO QAM [facility] Last Admin: 06/17/17 09:22 Dose: 75 mg Docusate Sodium (Colace Cap*) 200 mg PO BID PRN PRN Reason: CONSTIPATION Last Admin: 06/16/17 09:59 Dose: 200 mg Enoxaparin Sodium (Lovenox(*)) 40 mg SUBCUT Q24H [facility] Last Admin: 06/17/17 16:15 Dose: 40 mg Furosemide (Lasix Iv*) 40 mg IV 0800,1700 [facility] Last Admin: 06/17/17 16:15 Dose: 40 mg Gabapentin (Neurontin Cap(*)) 800 mg PO BID [facility] Last Admin: 06/17/17 20:07 Dose: 800 mg Heparin Sodium (Porcine) (Heparin Flush Port (Ivad)) 5 ml FLUSH DAILY [facility] PRN Reason: Protocol Last Admin: 06/17/17 16:16 Dose: 5 ml Ibuprofen (Motrin Tab*) 600 mg PO Q8H PRN PRN Reason: PAIN Last Admin: 06/17/17 20:43 Dose: 600 mg Insulin Glargine (Lantus(*)) 26 units 0.24 units/kg (26 units) SUBCUT 2100 [facility] Last Admin: 06/17/17 20:46 Dose: 26 units Insulin Human Lispro (Humalog*) 0 units SUBCUT ACHS [facility] PRN Reason: Protocol Last Admin: 06/17/17 20:45 Dose: 3 units Magnesium Hydroxide (Milk Of Magnesia Liq*) 30 ml PO Q6H PRN PRN Reason: CONSTIPATION Last Admin: 06/17/17 20:10 Dose: 30 ml Magnesium Oxide (Magox 400 Tab*) 400 mg PO DAILY [facility] Last Admin: 06/17/17 09:22 Dose: 400 mg Metformin HCl (Glucophage*) 500 mg PO 0800,1700 [facility] Last Admin: 06/17/17 16:16 Dose: 500 mg Morphine Sulfate (Ms Contin(*)) 15 mg PO TID [facility] Last Admin: 06/17/17 20:05 Dose: 15 mg Neomycin/Polymyxin/Dexamethasone (Maxitrol 0.1% Opth*) 1 applic LEFT EYE BID [facility] Last Admin: 06/17/17 20:48 Dose: 1 dose Nicotine (Nicotine Patch 21 Mg/24 Hr*) 1 patch TRANSDERM DAILY@0900 [facility] Last Admin: 06/17/17 09:22 Dose: 1 patch Nitroglycerin (Nitroglycerin Tab 0.4 Mg*) 0.4 mg SL Q5M PRN PRN Reason: PAIN - CHEST Pantoprazole Sodium (Protonix Tab (Nf)) 40 mg PO DAILY [facility] Last Admin: 06/17/17 09:22 Dose: 40 mg Pharmacy Profile Note (Nicotine Patch Removal Note*) 1 note FOLLOW UP 2100 [facility] Last Admin: 06/17/17 20:08 Dose: Not Given Pharmacy Profile Note (Lidocaine Patch Remove*) 1 note PATCH OFF 0900 [facility] Polyvinyl Alcohol (Polyvinyl Alcohol 1.4% Opth*) 1 drop LEFT EYE QID [facility] Last Admin: 06/17/17 20:47 Dose: 1 drop Potassium Chloride (Klor Con Er Tab*) 20 meq PO DAILY [facility] Last Admin: 06/17/17 09:21 Dose: 20 meq Sodium Chloride (Sodium Chloride 0.65% Nasal [place]*) 1 spray BOTH NARES Q4H PRN PRN Reason: CONGESTION Last Admin: 06/17/17 16:31 Dose: 1 nasal.spr Tamsulosin HCl (Flomax Cap*) 0.4 mg PO BEDTIME [facility] Last Admin: 06/17/17 20:08 Dose: 0.4 mg Tiotropium [place] (Spiriva Cap.Inh*) 1 cap INH DAILY [facility] Last Admin: 06/17/17 07:55 Dose: 1 cap Trazodone HCl (Desyrel Tab*) 100 mg PO BEDTIME [facility] Last Admin: 06/17/17 20:09 Dose: 100 mg Vital Signs - 8 hr 06/17/17 06/17/17 06/17/17 13:15 13:31 15:49 Temperature 97.9 F Pulse Rate 72 Respiratory 20 20 20 Rate Blood Pressure 115/52 (mmHg) O2 Sat by Pulse 98 Oximetry 06/17/17 06/17/17 06/17/17 15:58 19:28 20:05 Temperature 98.2 F Pulse Rate 78 82 Respiratory 17 22 22 Rate Blood Pressure 106/53 (mmHg) O2 Sat by Pulse 99 98 Oximetry 06/17/17 20:07 Temperature Pulse Rate Respiratory 16 Rate Blood Pressure (mmHg) O2 Sat by Pulse Oximetry Oxygen Devices in Use Now: Nasal Cannula Appearance: Patient is a 67yo male who appears older than stated age and is sitting in thed bed in [facility]. Eyes: No Scleral Icterus, PERRLA Ears/Nose/Mouth/Throat: NL Teeth, Lips, Gums, Clear Oropharnyx, Mucous Membranes Moist Neck: NL Appearance and Movements; NL JVP, Trachea Midline Respiratory: Symmetrical Chest Expansion and Respiratory Effort, - - Slight Wheezes, Diminished. Cardiovascular: NL Sounds; No Murmurs; No JVD, RRR, - - 2+ edema in B/L LE. Pulses 2+ in B/L LE. Abdominal: NL Sounds; No Tenderness; No Distention, No Hepatosplenomegaly, - - slight tenderness to palpation over RLQ. Lymphatic: No Cervical Adenopathy Extremities: No Clubbing, Cyanosis Skin: No Nodules or Sclerosis, - - Large ulcer on dorsum of left foot with surrounding erythema. No exposed bone. 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 Continue cipro and clinda. Transitioned to oral antibiotics. Educated pt about the need to have his leg elevated at all times when not walking. VASQUEZ wraps ordered. Concern for possible underlying osteomyelitis. Does not penetrate near bone. No signs of systemic toxicity. Will not treat for osteomyelitis. (2) Acute on chronic diastolic CHF (congestive heart failure) Current Visit: No Status: Acute Code(s): I50.33 - ACUTE ON CHRONIC DIASTOLIC (CONGESTIVE) HEART FAILURE SNOMED Code(s): 269490365 Comment: Appreciate cardiology input. Diuretic adjusted on 06/15. Patient is not fluid negative over the past couple days. Coreg dose lowered due to low SBP , on 06/15/17, now SBP improved. EF noted to be 45% with mod MR and mod TR on recent echo Educated patient on limiiting fluid intake and avoiding salty food. (3) Anemia Current Visit: No Status: Acute Code(s): D64.9 - ANEMIA, UNSPECIFIED SNOMED Code(s): 927755297 Comment: Most recently 10.1, Improved despite positive fluid balance. At baseline (4) Small cell lung cancer Current Visit: No Status: Acute Code(s): C34.90 - MALIGNANT NEOPLASM OF UNSP PART OF UNSP BRONCHUS OR LUNG SNOMED Code(s): 039140197 (5) BPH (benign prostatic hyperplasia) Current Visit: No Status: Chronic Code(s): N40.0 - BENIGN PROSTATIC HYPERPLASIA WITHOUT LOWER URINRY TRACT SYMP SNOMED Code(s): 685409049 Comment: Continue tamsulosin. (6) CAD (coronary artery disease) Current Visit: No Status: Chronic Code(s): I25.10 - ATHSCL HEART DISEASE OF [place] CORONARY ARTERY W/O ANG PCTRS SNOMED Code(s): 78302202 Comment: No signs of ACS. Continue secondary prevention. (7) COPD (chronic obstructive pulmonary disease) Current Visit: No Status: Chronic Code(s): J44.9 - CHRONIC OBSTRUCTIVE PULMONARY DISEASE, UNSPECIFIED SNOMED Code(s): 19158337 Comment: No signs of exacerbation at this time. Only slight wheezes on exam. No need for steroids currently. PRN inhalers. (8) Diabetes Current Visit: No Status: Chronic Code(s): E11.9 - TYPE 2 DIABETES MELLITUS WITHOUT COMPLICATIONS SNOMED Code(s): 63342353 Comment: Type II DM. Sugars are under fair control. Continue lispro sliding scale,lantus , metformin (9) GERD (gastroesophageal reflux disease) Current Visit: No Status: Chronic Code(s): K21.9 - GASTRO-ESOPHAGEAL REFLUX DISEASE WITHOUT ESOPHAGITIS SNOMED Code(s): 918418322 Comment: Continue pantoprazole. (10) Tobacco abuse Current Visit: No Status: Chronic Code(s): Z72.0 - TOBACCO USE SNOMED Code (s): 077348752 Comment: Encourage smoking cessation. Nicotine replacement ordered (11) Right hip pain Current Visit: Yes Status: Acute Code(s): M25.551 - PAIN IN RIGHT HIP SNOMED Code(s): 59418376 Comment: Degenerative changes on bone scan. Continue Tylenol, Motrin, Percocet and trial lidocaine patch. (12) DVT prophylaxis Current Visit: No Status: Acute Code(s): OJW7667 - SNOMED Code(s): 525221237 Comment: Lovenox Status and Disposition: inpatient. Patient has a bed offer at [facility] when medically stable.
[2017-06-17] MEDS: Clindamycin CAP* 150 MG PO SCH (23:45)
[2017-06-18] MEDS: Clindamycin CAP* 150 MG PO SCH ×3 (06:05→22:03)
[2017-06-18 06:33] LABS: EGFR Non-African American 95.3 (>60)
[2017-06-18 06:39] LABS: Hematocrit 27 % (42-52); Mean Corpuscular HGB Conc 34 g/dl (31-36); Mean Corpuscular Hemoglobin 33 pg (27-31); Mean Corpuscular Volume 98 fL (80-94); Mean Platelet Volume 9 um3 (7.4-10.4); Platelet Count 187 10^3/ul (150-450); Red Cell Distribution Width 26 % (10.5-15); White Blood Count 7.6 10^3/ul (3.5-10.8)
[2017-06-18 07:34] LABS: ABS Basophils 0.1 10^3/ul (0-0.2); ABS Eosinophils 0.1 10^3/ul (0-0.6); ABS Lymphocytes 0.8 10^3/ul (1.0-4.8); ABS Monocytes 1.4 10^3/ul (0-0.8); ABS Neutrophils 5.3 10^3/ul (1.5-7.7); ABS Nucleated RBC 0 10^3/ul; Eosinophil % 0.8 % (0-6); Nucleated Red Blood Cells % 0.1
[2017-06-18] MEDS: Tiotropium CAP.INH* CAP.INH/18 MCG (USE ORDER SET !) INH SCH (08:39)
[2017-06-18] MEDS: Insulin LISPRO* 1 UNITS UNIT SUBCUT SCH ×4 (08:44→22:01)
[2017-06-18] MEDS: Amiodarone TAB* 200 MG PO SCH (09:13)
[2017-06-18] MEDS: metFORMIN* 500 MG TAB PO SCH ×2 (09:13→18:01)
[2017-06-18] MEDS: Furosemide IV* 10 MG/ML VIAL (40 MG) IV SCH ×2 (09:13→18:02)
[2017-06-18] MEDS: Carvedilol TAB* 3.125 MG PO SCH ×2 (09:14→22:03)
[2017-06-18] MEDS: Aspirin EC Low Dose* 81 MG TAB.EC PO SCH (09:14)
[2017-06-18] MEDS: Artificial Tears* 15 ML BTL LEFT EYE SCH ×5 (09:14→22:03)
[2017-06-18] MEDS: Neomycin/Polymy/Dex OPHTH.OIN* 3.5 GM LEFT EYE SCH (09:14)
[2017-06-18] MEDS: Morphine TAB Extended Release (*) 15 MG TAB.ER PO SCH ×2 (09:15→14:58)
[2017-06-18] MEDS: Ciprofloxacin TAB* 500 MG PO SCH ×2 (09:15→22:03)
[2017-06-18] MEDS: Gabapentin CAP(*) 400 MG PO SCH ×2 (09:15→22:02)
[2017-06-18] MEDS: Clopidogrel TAB* 75 MG PO SCH (09:15)
[2017-06-18] MEDS: CMC: Pantoprazole TAB (NF) 40 MG TAB PO SCH (09:16)
[2017-06-18] MEDS: Nicotine PATCH 21 MG/24 HR* PATCH TRANSDERM SCH (09:16)
[2017-06-18] MEDS: Potassium Chlor TAB* 20 MEQ TAB.ER PO SCH (09:16)
[2017-06-18] MEDS: Magnesium Oxide TAB* 400 MG PO SCH (09:16)
[2017-06-18] MEDS: Lidocaine Patch REMOVE* 1 NOTE MISC PATCH OFF SCH (15:01)
[2017-06-18] MEDS ORDERED: Metolazone TAB* 5 MG PO ONE (16:16)
--- NOTE | 2017-06-18 16:24 | PN ---
Subjective Date of Service: 06/18/17 Interval History: Pt with decreased swelling in his left leg and feet since admission. Still some pain near his left toes/dorsum and left calf. Complaint of dropping things prior to admission, a pinched nerve on left side with resultant neuropathy fingers 4 and 5. Was on torsemide 40mg at home on 2.5L. Afebrile. Has been drinking between 2 and 2.5L since admission and essentionaly uchanged weights or net io balance. Family History: Unchanged from Admission Social History: Unchanged from Admission Past Medical History: Unchanged from Admission Objective Active Medications: Hydrocodone Bitart/Acetaminophen ([place] 5-325 Tab*) 1 tab PO Q6H PRN PRN Reason: PAIN Last Admin: 06/17/17 09:22 Dose: 1 tab Albuterol (Ventolin 2.5 Mg/3 Ml Neb.Luz Elena*) 2.5 mg INH QID PRN PRN Reason: SHORTNESS OF BREATH Last Admin: 06/17/17 22:25 Dose: 2.5 mg Amiodarone HCl (Cordarone Tab*) 100 mg PO DAILY [facility] Last Admin: 06/18/17 09:13 Dose: 100 mg Aspirin (Aspirin Ec Low Dose*) 81 mg PO QAM [facility] Last Admin: 06/18/17 09:14 Dose: 81 mg Atorvastatin Calcium (Lipitor*) 80 mg PO BEDTIME [facility] Last Admin: 06/17/17 20:06 Dose: 80 mg Carvedilol (Coreg Tab*) 3.125 mg PO BID [facility] Last Admin: 06/18/17 09:14 Dose: 3.125 mg Ciprofloxacin (Cipro Tab*) 500 mg PO Q12HR [facility] Last Admin: 06/18/17 09:15 Dose: 500 mg Clindamycin HCl (Cleocin Cap*) 300 mg PO Q8HR [facility] Last Admin: 06/18/17 15:00 Dose: 300 mg Clopidogrel Bisulfate (Plavix Tab*) 75 mg PO QAM [facility] Last Admin: 06/18/17 09:15 Dose: 75 mg Docusate Sodium (Colace Cap*) 200 mg PO BID PRN PRN Reason: CONSTIPATION Last Admin: 06/16/17 09:59 Dose: 200 mg Enoxaparin Sodium (Lovenox(*)) 40 mg SUBCUT Q24H [facility] Last Admin: 06/17/17 16:15 Dose: 40 mg Furosemide (Lasix Iv*) 60 mg IV 0800,1700 [facility] Gabapentin (Neurontin Cap(*)) 800 mg PO BID [facility] Last Admin: 06/18/17 09:15 Dose: 800 mg Heparin Sodium (Porcine) (Heparin Flush Port (Ivad)) 5 ml FLUSH DAILY [facility] PRN Reason: Protocol Last Admin: 06/18/17 09:16 Dose: 5 ml Ibuprofen (Motrin Tab*) 600 mg PO Q8H PRN PRN Reason: PAIN Last Admin: 06/17/17 20:43 Dose: 600 mg Insulin Glargine (Lantus(*)) 26 units 0.24 units/kg (26 units) SUBCUT 2100 [facility] Last Admin: 06/17/17 20:46 Dose: 26 units Insulin Human Lispro (Humalog*) 0 units SUBCUT ACHS [facility] PRN Reason: Protocol Last Admin: 06/18/17 12:58 Dose: Not Given Lidocaine (Lidoderm 5% Patch*) 1 patch TRANSDERM 2100 [facility] Last Admin: 06/17/17 23:42 Dose: Not Given Magnesium Hydroxide (Milk Of Magnesia Liq*) 30 ml PO Q6H PRN PRN Reason: CONSTIPATION Last Admin: 06/17/17 20:10 Dose: 30 ml Magnesium Oxide (Magox 400 Tab*) 400 mg PO DAILY [facility] Last Admin: 06/18/17 09:16 Dose: 400 mg Metformin HCl (Glucophage*) 500 mg PO 0800,1700 [facility] Last Admin: 06/18/17 09:13 Dose: 500 mg Metolazone (Zaroxolyn Tab*) 5 mg PO ONCE ONE Stop: 06/18/17 16:17 Morphine Sulfate (Ms Contin(*)) 15 mg PO TID [facility] Last Admin: 06/18/17 14:58 Dose: 15 mg Neomycin/Polymyxin/Dexamethasone (Maxitrol 0.1% Opth*) 1 applic LEFT EYE BID [facility] Last Admin: 06/18/17 09:14 Dose: 1 dose Nicotine (Nicotine Patch 21 Mg/24 Hr*) 1 patch TRANSDERM DAILY@0900 [facility] Last Admin: 06/18/17 09:16 Dose: 1 patch Nitroglycerin (Nitroglycerin Tab 0.4 Mg*) 0.4 mg SL Q5M PRN PRN Reason: PAIN - CHEST Pantoprazole Sodium (Protonix Tab (Nf)) 40 mg PO DAILY [facility] Last Admin: 06/18/17 09:16 Dose: 40 mg Pharmacy Profile Note (Nicotine Patch Removal Note*) 1 note FOLLOW UP 2100 [facility] Last Admin: 06/17/17 20:08 Dose: Not Given Pharmacy Profile Note (Lidocaine Patch Remove*) 1 note PATCH OFF 0900 [facility] Last Admin: 06/18/17 15:01 Dose: Not Given Polyvinyl Alcohol (Polyvinyl Alcohol 1.4% Opth*) 1 drop LEFT EYE QID [facility] Last Admin: 06/18/17 15:02 Dose: Not Given Potassium Chloride (Klor Con Er Tab*) 20 meq PO DAILY [facility] Last Admin: 06/18/17 09:16 Dose: 20 meq Sodium Chloride (Sodium Chloride 0.65% Nasal [place]*) 1 spray BOTH NARES Q4H PRN PRN Reason: CONGESTION Last Admin: 06/17/17 16:31 Dose: 1 nasal.spr Tamsulosin HCl (Flomax Cap*) 0.4 mg PO BEDTIME [facility] Last Admin: 06/17/17 20:08 Dose: 0.4 mg Tiotropium [place] (Spiriva Cap.Inh*) 1 cap INH DAILY [facility] Last Admin: 06/18/17 08:39 Dose: 1 cap Trazodone HCl (Desyrel Tab*) 100 mg PO BEDTIME [facility] Last Admin: 06/17/17 20:09 Dose: 100 mg Vital Signs - 8 hr 06/18/17 06/18/17 09:15 14:58 Respiratory 18 16 Rate Oxygen Devices in Use Now: None Appearance: NAD, sitting in wheelchair Eyes: No Scleral Icterus, PERRLA Ears/Nose/Mouth/Throat: NL Teeth, Lips, Gums, Mucous Membranes Moist Neck: NL Appearance and Movements; NL JVP Respiratory: Symmetrical Chest Expansion and Respiratory Effort, Clear to Auscultation Cardiovascular: NL Sounds; No Murmurs; No JVD, RRR Abdominal: NL Sounds; No Tenderness; No Distention, No Hepatosplenomegaly Extremities: - - 1-2+ edema up left leg, 1+ right leg. Skin: - - erythema left foot. Neurological: Alert and Oriented x 3, NL Muscle Strength and Tone, - - neuropathy left 4th, 5th fingers. Result Diagrams: 06/18/17 05:22 06/18/17 05:22 Additional Lab and Data: Lab Results Laboratory Results - last 24 hr 06/17/17 06/18/17 06/18/17 20:34 05:22 05:22 WBC 7.6 RBC 2.70 L Hgb 9.0 L Hct 27 L MCV 98 H MCH 33 H MCHC 34 RDW 26 H Plt Count 187 MPV 9 Neut % (Auto) 70.5 Lymph % (Auto) 10.0 L [place] % (Auto) 17.9 H Eos % (Auto) 0.8 Baso % (Auto) 0.8 Absolute Neuts (auto) 5.3 Absolute Lymphs (auto) 0.8 L Absolute Monos (auto) 1.4 H Absolute Eos (auto) 0.1 Absolute Basos (auto) 0.1 Absolute Nucleated RBC 0 Nucleated RBC % 0.1 Sodium 134 Potassium 3.8 Chloride 96 L Carbon Dioxide 33 H Anion Gap 5 BUN 17 Creatinine 0.81 Est GFR ( Amer) 122.6 Est GFR (Non-Af Amer) 95.3 BUN/Creatinine Ratio 21.0 H Glucose 93 POC Glucose (mg/dL) 162 H Calcium 8.9 C-Reactive Protein 43.68 H 06/18/17 06/18/17 07:39 12:22 WBC RBC Hgb Hct MCV MCH MCHC RDW Plt Count MPV Neut % (Auto) Lymph % (Auto) [place] % (Auto) Eos % (Auto) Baso % (Auto) Absolute Neuts (auto) Absolute Lymphs (auto) Absolute Monos (auto) Absolute Eos (auto) Absolute Basos (auto) Absolute Nucleated RBC Nucleated RBC % Sodium Potassium Chloride Carbon Dioxide Anion Gap BUN Creatinine Est GFR ( Amer) Est GFR (Non-Af Amer) BUN/Creatinine Ratio Glucose POC Glucose (mg/dL) 104 H 117 H Calcium C-Reactive Protein Microbiology and Other Data: Microbiology Microbiology 06/11/17 16:15 Blood Venous Aerobic Blood Culture - Final No Growth Day 06/11/17 16:15 Blood Venous Anaerobic Blood Culture - Final No Growth Day 06/11/17 15:58 Blood Venous Aerobic Blood Culture - Final No Growth Day 06/11/17 15:58 Blood Venous Anaerobic Blood Culture - Final No Growth Day 06/11/17 22:45 Urine Urine Culture - Final No Growth (<1,000 CFU/mL) Assess/Plan/Problems-Billing Assessment: 67 yo M with h/o DM, chronic leg edema, CAD, left fem-pop bypass, bladder ca, small cell lung ca (in between chemo), COPD (on prn at home) who presents with vague confusion and possible facial droop with negative neuro work up, then was treated for CHF, now noted to have cellulitis in left leg - Patient Problems (1) Cellulitis of left lower leg Current Visit: Yes Status: Acute Code(s): L03.116 - CELLULITIS OF LEFT LOWER LIMB SNOMED Code(s): 786945485 Comment: Continue clindamycin. (was IV since 06/14 then po) Diuresis to help decrease swelling. Keep leg elevated. Consider d/c cipro, not clear on the indication. was s/p 1 dose of cefepime and vancomycin on 06/11. (2) Acute on chronic diastolic CHF (congestive heart failure) Current Visit: No Status: Acute Code(s): I50.33 - ACUTE ON CHRONIC DIASTOLIC (CONGESTIVE) HEART FAILURE SNOMED Code(s): 950013237 Comment: Appreciate cardiology input.add metolazone daily and increase lasix to 60mg IV BID. initiate fluid restriction 1.5L (has just been drinking 2-2.5L a day so not actually making any progress in diuresis). Continue Coreg EF noted to be 45% with mod MR and mod TR on recent echo daily weights, strict ios. (3) Anemia Current Visit: No Status: Acute Code(s): D64.9 - ANEMIA, UNSPECIFIED SNOMED Code(s): 999636039 Comment: 9.0 normocytic. (4) COPD (chronic obstructive pulmonary disease) Current Visit: No Status: Chronic Code(s): J44.9 - CHRONIC OBSTRUCTIVE PULMONARY DISEASE, UNSPECIFIED SNOMED Code(s): 88401493 Comment: No signs of exacerbation at this time. PRN inhalers. (5) Diabetes Current Visit: No Status: Chronic Code(s): E11.9 - TYPE 2 DIABETES MELLITUS WITHOUT COMPLICATIONS SNOMED Code(s): 50922114 Comment: Type II IDDM. Sugars are under good control. Continue lispro sliding scale, lantus 26U daily. Has been on metformin as well. Status and Disposition: inpatient. Patient planned to [facility] 06/19/17. Attending: Yuniel Zhou
[2017-06-18] MEDS: Enoxaparin(*) 40 MG/0.4 ML SYR SUBCUT SCH (16:34)
[2017-06-18] MEDS: Insulin GLARGINE(*) 1 UNITS UNIT SUBCUT SCH (22:01)
[2017-06-18] MEDS: Magnesium Hydroxide LIQ* 30 ML UDC PO PRN (22:02)
[2017-06-18] MEDS: Atorvastatin* 80 MG TAB PO SCH (22:03)
[2017-06-18] MEDS: Tamsulosin CAP* 0.4 MG PO SCH (22:03)
[2017-06-18] MEDS: Ibuprofen TAB* 600 MG PO PRN (22:03)
[2017-06-18] MEDS: traZODone TAB* 100 MG PO SCH (22:03)
[2017-06-18] MEDS: Lidocaine PATCH 5%* 1 PATCH TRANSDERM SCH (22:04)
[2017-06-18] MEDS: HYDROcodone/ACETAMIN 5-325 MG* 1 TAB PO PRN (22:13)
[2017-06-18] MEDS: Nicotine Patch Removal NOTE FOLLOW UP SCH (22:15)
[2017-06-19] MEDS: Clindamycin CAP* 150 MG PO SCH (06:16)
[2017-06-19 07:38] VITALS: BP 137/73
[2017-06-19] MEDS: Aspirin EC Low Dose* 81 MG TAB.EC PO SCH (07:59)
[2017-06-19] MEDS: metFORMIN* 500 MG TAB PO SCH (08:00)
[2017-06-19] MEDS: Ciprofloxacin TAB* 500 MG PO SCH (08:00)
[2017-06-19] MEDS: CMC: Pantoprazole TAB (NF) 40 MG TAB PO SCH (08:00)
[2017-06-19] MEDS: Gabapentin CAP(*) 400 MG PO SCH (08:00)
[2017-06-19] MEDS: Clopidogrel TAB* 75 MG PO SCH (08:00)
[2017-06-19] MEDS: Magnesium Oxide TAB* 400 MG PO SCH (08:01)
[2017-06-19] MEDS: Potassium Chlor TAB* 20 MEQ TAB.ER PO SCH (08:01)
[2017-06-19] MEDS: HYDROcodone/ACETAMIN 5-325 MG* 1 TAB PO PRN (08:01)
[2017-06-19] MEDS: Amiodarone TAB* 200 MG PO SCH (08:02)
[2017-06-19] MEDS: Carvedilol TAB* 3.125 MG PO SCH (08:02)
[2017-06-19] MEDS: Furosemide IV* 10 MG/ML VIAL (40 MG) IV SCH (08:02)
[2017-06-19] MEDS: Artificial Tears* 15 ML BTL LEFT EYE SCH (08:03)
[2017-06-19] MEDS: Ibuprofen TAB* 600 MG PO PRN (08:03)
[2017-06-19] MEDS: Nicotine PATCH 21 MG/24 HR* PATCH TRANSDERM SCH (08:04)
[2017-06-19] MEDS: Lidocaine Patch REMOVE* 1 NOTE MISC PATCH OFF SCH (08:12)
[2017-06-19] MEDS: Insulin LISPRO* 1 UNITS UNIT SUBCUT SCH (08:23)
[2017-06-19] MEDS: Tiotropium CAP.INH* CAP.INH/18 MCG (USE ORDER SET !) INH SCH (08:53)
--- NOTE | 2017-06-19 10:23 | DS ---
DISCHARGE SUMMARY: DATE OF ADMISSION: 06/11/17 ADMITTING PROVIDER: Shona Rasheed QUOTER (Oncology) DATE OF DISCHARGE: 06/19/17 ATTENDING PHYSCIAN at Discharge: Yuniel Zhou MD PCP: Dr. Mcdermott CHIEF COMPLAINT: Right-sided facial numbness, fluid overload, edema, pain, erythema of the left leg. PRINCIPAL DIAGNOSES: Congestive heart failure exacerbation and left leg cellulitis. HISTORY OF PRESENT ILLNESS AND HOSPITAL COURSE: Dima Cehn is a 67-year-old male, past medical history of CHF; COPD; myocardial infarction; fem-pop bypass on the left side; bladder cancer; insulin-dependent diabetes mellitus; hypertension; small cell lung cancer, on chemotherapy currently; current smoker , who presented with right-sided facial numbness starting just prior to admission. Neurology was consulted. CT was unremarkable. Brain MRI was obtained, which demonstrated no evidence of intra or extraaxial metastasis of his lung cancer, some encephalomalacia of the left frontoparietal lobe related to previous infarcts. No acute intracranial process. He was seen by Cardiology and increased diuresis with 40 IV Lasix b.i.d. was started given lower extremity edema that was likely exacerbating possible cellulitis of the left leg. His leg edema gradually improved and his discharge weight was 105.6 kg. He will be continued on torsemide 40 mg daily. He was initially started on vancomycin and cefepime x1 in the emergency room and then transitioned to IV clindamycin, then oral clindamycin, which he received 5-1/2 total days. He also received ciprofloxacin. He is being discharged on 4-1/2 more days of cephalexin 500 mg 4 times a day for left leg cellulitis. He received a transthoracic echocardiogram, which showed ejection fraction of 40% to 45%, moderate pulmonary hypertension, [id number] tricuspid regurgitation, mild- to-moderate mitral regurgitation. He had a venous Doppler study of his left lower extremity, which showed no evidence of DVT. He had a bone scan, which demonstrated findings suspicious for cellulitis of the left lower extremity, the distal leg, ankle and foot. It was noted for potential osteomyelitis at the anterior aspect of the calcaneus. Left foot x-rays were obtained. There was also a concern for increased uptake in the left 1st rib concerning for potential metastasis. The left foot x-ray demonstrated the pes planus with mildly increased sclerotic change at the articulating surface of the talonavicular joint. The patient's CRP was initially 76, improved down to 43 day prior to discharge. He never had a leukocytosis and he was afebrile. He is being discharged to [facility] for continued rehabilitation and needs to be followed with Dr. Mcdermott and Dr. Johnston to continue his chemotherapy and radiation treatments. DISCHARGE MEDICATIONS: Include: 1. Amiodarone 100 mg p.o. daily (decreased in half by shock absorber installer). 2. Albuterol 2.5 mg inhaled 4 times daily. 3. Aspirin 81 mg daily. 4. Atorvastatin 80 mg p.o. q.h.s. 5. Refresh Plus(carboxymethylcellulose sodium). 0.5% left eye 4 times a day 6. Plavix 75 mg p.o. q.a.m. 7. Docusate 200 mg p.o. b.i.d. 8. Gabapentin 800 mg p.o. b.i.d. 9. [place] 5/325 mg p.o. b.i.d. 10. Lantus 26 units q.h.s. 11. Ibuprofen 600 mg p.o. q.8 hours p.r.n. 12. Lidocaine patch 5% daily. 13. Lispro sliding scale q.a.c. and h.s. 14. Magnesium hydroxide 30 mL p.o. q.6 hours. 15. Magnesium oxide 400 mg p.o. daily. 16. Metformin 500 mg p.o. b.i.d. 17. Nicotine patch 21 mg per 24 hours. 18. Omeprazole 20 mg p.o. q.a.m. 19. Potassium chloride tablets 20 mEq p.o. daily. 20. Tamsulosin 0.4 mg p.o. q.h.s. 21. Spiriva 1 capsule inhaled daily. 22. Trazodone 100 mg p.o. q.h.s. 23. Coreg 6.25 mg p.o. b.i.d. 24. Keflex 500 mg p.o. 4 times a day for 18 more tabs. 25. MS Contin 15 mg p.o. t.i.d. 26. Torsemide 40 mg p.o. q.p.m. DISCHARGE DIET: Heart healthy, carbohydrate consistent. DISCHARGE ACTIVITY LEVEL: No restrictions. FOLLOWUP: Please follow up with Dr. Mcdermott and Dr. Johnston after discharge from [facility]. TIME SPENT: Time spent on discharge 35 minutes. [id number]/[facility] #: [id number] BRY
== END 2017-06-19 11:20 | DRG 291 ==
LOC: ED 12:22 → MEDTELE 15:59
PROVIDERS: ADMIT Internal Medicine Hematology & Oncology; ATTEND Internal Medicine
PROC: 30233N1 Transfusion of Nonautologous Red Blood Cells into Peripheral Vein, Percutaneous Approach (ICD-10-PCS; principal; 2017-06-13)
DX: I11.0 Hypertensive heart disease with heart failure (principal); G93.40 Encephalopathy, unspecified; I47.2 Ventricular tachycardia; G93.89 Other specified disorders of brain; E11.40 Type 2 diabetes mellitus with diabetic neuropathy, unspecified; E11.51 Type 2 diabetes mellitus with diabetic peripheral angiopathy without gangrene; I95.9 Hypotension, unspecified; E11.69 Type 2 diabetes mellitus with other specified complication; M41.9 Scoliosis, unspecified; L03.116 Cellulitis of left lower limb; C34.90 Malignant neoplasm of unspecified part of unspecified bronchus or lung; M86.9 Osteomyelitis, unspecified; L02.416 Cutaneous abscess of left lower limb; E11.65 Type 2 diabetes mellitus with hyperglycemia; I27.20 Pulmonary hypertension, unspecified; J44.9 Chronic obstructive pulmonary disease, unspecified; I08.1 Rheumatic disorders of both mitral and tricuspid valves; I25.10 Atherosclerotic heart disease of native coronary artery without angina pectoris; E78.5 Hyperlipidemia, unspecified; G47.30 Sleep apnea, unspecified; M48.061 Spinal stenosis, lumbar region without neurogenic claudication; F17.210 Nicotine dependence, cigarettes, uncomplicated; H10.9 Unspecified conjunctivitis; M16.11 Unilateral primary osteoarthritis, right hip; K21.9 Gastro-esophageal reflux disease without esophagitis; K57.90 Diverticulosis of intestine, part unspecified, without perforation or abscess without bleeding; N40.0 Benign prostatic hyperplasia without lower urinary tract symptoms; F41.9 Anxiety disorder, unspecified; H26.9 Unspecified cataract; R40.2412 Glasgow coma scale score 13-15, at arrival to emergency department; R29.703 NIHSS score 3; I50.33 Acute on chronic diastolic (congestive) heart failure; D64.9 Anemia, unspecified; M25.551 Pain in right hip; N20.0 Calculus of kidney; I25.2 Old myocardial infarction; Z79.82 Long term (current) use of aspirin; Z79.4 Long term (current) use of insulin; Z95.5 Presence of coronary angioplasty implant and graft; Z85.51 Personal history of malignant neoplasm of bladder; Z92.21 Personal history of antineoplastic chemotherapy; Z92.3 Personal history of irradiation; Z88.8 Allergy status to other drugs, medicaments and biological substances; Z91.030 Bee allergy status; Z91.018 Allergy to other foods; Z87.442 Personal history of urinary calculi; Z72.89 Other problems related to lifestyle; Z80.1 Family history of malignant neoplasm of trachea, bronchus and lung; Z80.7 Family history of other malignant neoplasms of lymphoid, hematopoietic and related tissues; Z87.01 Personal history of pneumonia (recurrent); Z91.19 Patient's noncompliance with other medical treatment and regimen
CPT/HCPCS: 36415; 70450; 70553; 71045; 78315; 80048; 80053; 80307; 80320; 80329; 81003; 81015; 82140; 82375; 82550; 82553; 83036; 83605; 83690; 83735; 83880; 84439; 84443; 84484; 85025; 85610; 85730; 86140; 86850; 86900; 86901; 86922; 87040; 87086; 93005; 93306; 94640; 94760; 96374; 99223; 99232; 99233; 99239; 99284; 99406; A9270-GY; A9503; A9579; G0480; J0692; J1642; J1650; J1940; J2997; J3370; P9040

== ENCOUNTER 2017-09-29 07:43 | Inpatient (IN) | payer MEDICARE, OTHER, MEDICAID ==
--- NOTE | 2017-09-23 17:12 | HP ---
Amended report to enter cosigning physician. HISTORY AND PHYSICAL: DATE OF SURGERY: 09/29/17. DATE OF OFFICE VISIT: 09/21/17. SURGEON: Rubia Cazares MD* (dictated by YOVANNY Wynn). PROCEDURE: Right total hip arthroplasty. CHIEF COMPLAINT: Right hip pain. HISTORY OF PRESENT ILLNESS: Mr. Chen is a 67-year-old gentleman with complaints of right hip pain secondary to severe end-stage osteoarthritis. He has failed conservative and has elected to proceed with a right total hip arthroplasty, which is scheduled for 09/29/[address] Cazares. PAST MEDICAL HISTORY: 1. Small cell carcinoma of the lung and bladder cancer, both in remission. 2. Diabetes. 3. Hyperlipidemia. 4. Hypertension. 5. History of an SC. 6. Coronary artery disease. 7. Congestive heart failure. 8. Stroke. 9. COPD. 10. GERD. 11. BPH. PAST SURGICAL HISTORY: 1. Hernia repair. 2. Finger amputation. 3. Back surgery, unknown. 4. Fem-pop bypass. 5. Carotid endarterectomy. 6. Stent placement. CURRENT MEDICATIONS: 1. Magnesium oxide 400 mg daily. 2. Ipratropium/albuterol nebulizer solution. 3. Carvedilol 12.5 mg daily. 4. Plavix 75 mg daily. 5. Fluticasone nasal spray. 6. Gabapentin 300 mg daily. 7. [place] 5/325 as needed. 8. Ibuprofen as needed. 9. Aspirin 81 mg daily. 10. Lipitor 80 mg daily. 11. Amiodarone 200 mg daily. 12. Prochlorperazine 10 mg daily. 13. Metformin 500 mg twice daily. 14. Extended Release Morphine 15 mg. 15. Mucinex. 16. Nitroglycerin 0.4 mg sublingual as needed. 17. Omeprazole 20 mg daily. 18. Potassium chloride 20 mEq daily. 19. ProAir HFA. 20. Torsemide 20 mg daily. 21. Trazodone 100 mg. ALLERGIES: To, VASQUEZ INHIBITORS, LIPITOR, BEE STINGS, and CATS. FAMILY HISTORY: COPD. SOCIAL HISTORY: This is a 67-year-old gentleman, who lives alone. He smokes about a pack a day. He denies use of drugs, and uses occasional alcohol. REVIEW OF SYSTEMS: A complete 14-point review of systems was reviewed with the patient. It was positive for a history of stroke, COPD, GERD, diabetes. He denies history of DVT, PE, hepatitis C, HIV, or anesthesia problems. PHYSICAL EXAMINATION GENERAL: He is well developed, well nourished, in no acute distress. VITAL SIGNS: He is 5 feet 10 inches tall, weighs 220 pounds. His blood pressure today was 136/84, his heart rate was 60. HEENT: Normocephalic, atraumatic. NECK: Supple. No palpable lymph nodes. PULMONARY: The lungs are clear to auscultation bilaterally. CARDIO: Regular rate and rhythm. Strong S1, and S2. ABDOMEN: Soft, nontender, nondistended. MUSCULOSKELETAL: Right lower extremity, the skin is intact. He has decreased internal and external rotation of his right hip. He walks with a severely antalgic gait. 2+ dorsalis pedis pulses. Intact sensation in his lower extremities. Muscle group strengths are intact at 5/5. NEUROLOGIC: He is alert, and oriented x3. Cranial nerves II through XII are intact. ASSESSMENT AND PLAN: Mr. Chen is a 67-year-old gentleman with complaints of right hip pain secondary to severe end-stage osteoarthritis. He has elected to proceed with a right total hip arthroplasty, which is scheduled for 09/29/[address] Cazares discussed the risks, and benefits of the surgery at today's visit and all of his questions were answered. He was instructed by his die cast die maker to stop the Plavix 7 days prior to surgery. He will follow up with Dr. Cazares in 2 weeks after the surgery. YOVANNY WYNN [id number]/[facility] #: [id number] BRY
[2017-09-29] MEDS ORDERED: ceFAZolin 2 GM PREMIX (*) 2 GM/50 ML BAG IVPB ONE (08:05)
[2017-09-29] MEDS ORDERED: Buffered Lidocaine 0.9% SYRIN* 5 ML/SYR SYRINGE ONE (08:05)
[2017-09-29] MEDS ORDERED: Morphine PF AMP (0.5MG/ML)* 5 MG/10 ML AMP ONE (08:29)
[2017-09-29] MEDS ORDERED: Midazolam* 1 MG/ML 2 ML VIAL (2 MG) ONE ×2 (08:29→10:52)
[2017-09-29] MEDS ORDERED: Lidocaine 2% PF * 5 ML VIAL ONE (08:29)
[2017-09-29] MEDS ORDERED: fentaNYL* 50 MCG/ML 2 ML VIAL (100 MCG VIAL) ONE (08:29)
[2017-09-29] MEDS ORDERED: Bupivacaine 0.5% PF 10 ML VIAL INJ ONE (08:29)
[2017-09-29] MEDS ORDERED: Propofol* 500 MG/50 ML BTL ONE (08:29)
[2017-09-29] MEDS ORDERED: HYDROmorphone INJ* 1 MG/ML CARPUJECT SYRINGE IV PRN (10:06)
[2017-09-29] MEDS ORDERED: Morphine INJ* 2 MG/ML 1 ML CARPUJECT IV PRN (10:06)
[2017-09-29] MEDS ORDERED: PROCHLORPERAZINE INJ 5 MG/ML 2 ML VIAL IV PRN (10:06)
[2017-09-29] MEDS ORDERED: diPHENhydraMINE IV* 50 MG/ML 1 ml VIAL (BENADRYL) IV PRN ×2 (10:06→10:09)
[2017-09-29] MEDS ORDERED: Naloxone* 0.4 MG/ML 1 ML VIAL IV PRN ×2 (10:06→10:09)
[2017-09-29] MEDS ORDERED: Acetaminophen IV 1GM/100ML * 1,000 MG/100 ML VIAL IVPB ONE (10:06)
[2017-09-29] MEDS ORDERED: Levalbuterol 0.63MG/3ML NEB* UNIT OF USE INH PRN (10:06)
[2017-09-29] MEDS ORDERED: oxyCODONE TAB* 5 MG TAB PO PRN (10:06)
[2017-09-29] MEDS ORDERED: fentaNYL* 50 MCG/ML 2 ML VIAL (100 MCG VIAL) IV PRN (10:06)
[2017-09-29] MEDS ORDERED: Ondansetron INJ* 2 MG/ML VIAL IV PRN ×2 (10:06→10:09)
[2017-09-29] MEDS ORDERED: Scopolamine 1.5 mg* PATCH TRANSDERM PRN (10:09)
[2017-09-29] MEDS ORDERED: Nalbuphine* 20 MG/ML 1 ML VIAL IV PRN (10:09)
[2017-09-29] MEDS ORDERED: oxyCODONE/Acetamin 5/325 MG* TAB PO PRN (10:09)
[2017-09-29] MEDS ORDERED: Acetaminophen TAB* 325 MG PO PRN ×2 (10:09→11:32)
[2017-09-29] MEDS ORDERED: EPHEDrine (Pressors)* 50 MG/ML VIAL IV PUSH PRN (10:45)
[2017-09-29] MEDS ORDERED: Ropivacaine* 300 MG in NS 0.9% 250 ML* 240 ML EPIDURAL SCH (11:00)
[2017-09-29] MEDS ORDERED: Glycopyrrolate IV* 0.2 MG/ML 1 ML VIAL ONE (11:19)
[2017-09-29] MEDS ORDERED: EPHEDrine (Pressors)* 50 MG/ML VIAL ONE (11:29)
[2017-09-29] MEDS ORDERED: Magnesium Hydroxide LIQ* 30 ML UDC PO PRN (11:32)
[2017-09-29] MEDS ORDERED: Polyethylene Glycol 3350* 17 GM PACKET PO PRN (11:32)
[2017-09-29] MEDS ORDERED: Cyclobenzaprine TAB* 10 MG PO PRN (11:32)
[2017-09-29] MEDS ORDERED: Bisacodyl SUPP* 10 MG SUPP PR PRN (11:32)
[2017-09-29] MEDS ORDERED: Albuterol HFA INHALER* 8 gm MDI INH PRN (11:39)
[2017-09-29] MEDS ORDERED: Nitroglycerin TAB 0.4 MG* 0.4 MG TAB SL PRN (11:39)
[2017-09-29] MEDS ORDERED: Acetaminophen IV 1GM/100ML * 100 ML ONE (13:13)
--- NOTE | 2017-09-29 13:31 | RAD ---
INDICATION: Right total hip replacement COMPARISON: July 24, 2017 TECHNIQUE: Portable AP and crosstable lateral images were obtained. FINDINGS: There is interval right hip arthroplasty. The prosthesis appears normally seated. There are no additional significant bony findings or changes. IMPRESSION: POSTOPERATIVE RIGHT HIP ARTHROPLASTY.
--- NOTE | 2017-09-29 13:59 | RAD ---
INDICATION: Right hip arthroplasty COMPARISON: July 24, 2017 TECHNIQUE: A single crosstable lateral images submitted FINDINGS: The single image is obtained for sizing and demonstrates acetabular cup placement with femoral stem for sizing.
[2017-09-29] MEDS ORDERED: Heparin VIAL(*) 5000 UNITS/ML VIAL (FIVE THOUSAND) SUBCUT SCH (14:00)
[2017-09-29] MEDS ORDERED: Nicotine Inhaler* 10 MG AMP INH PRN (16:50)
[2017-09-29] MEDS ORDERED: Mouth Piece, Nicotine* 1 EACH CARTRIDGE INH PRN (16:50)
[2017-09-29] MEDS ORDERED: metFORMIN* 500 MG TAB PO SCH (17:00)
[2017-09-29] MEDS: Artificial Tears* 15 ML BTL LEFT EYE SCH ×3 (17:39→20:21)
[2017-09-29] MEDS: Tamsulosin CAP* 0.4 MG PO SCH (17:51)
[2017-09-29] MEDS: Atorvastatin* 80 MG TAB PO SCH (17:51)
[2017-09-29] MEDS: ceFAZolin 1 GM in Dextrose (*) 1 GM/50 ML BAG IVPB SCH (17:52)
[2017-09-29] MEDS: traZODone TAB* 100 MG PO SCH (17:55)
[2017-09-29] MEDS ORDERED: Torsemide TAB* 20 MG PO SCH (18:00)
[2017-09-29] MEDS: Lidocaine PATCH 5%* 1 PATCH TRANSDERM SCH (18:24)
[2017-09-29] MEDS ORDERED: Nicotine PATCH 21 MG/24 HR* PATCH TRANSDERM SCH (20:00)
[2017-09-29] MEDS: Gabapentin CAP(*) 300 MG PO SCH (20:12)
[2017-09-29] MEDS: Docusate CAP* 100 MG PO SCH (20:13)
[2017-09-29] MEDS: Carvedilol TAB* 6.25 MG PO SCH (20:13)
[2017-09-29] MEDS: Magnesium Hydroxide LIQ* 30 ML UDC PO SCH (20:59)
[2017-09-29] MEDS: Neomycin/Polymy/Dex OPHTH.OIN* 3.5 GM LEFT EYE SCH (22:55)
[2017-09-30] MEDS ORDERED: Dextrose 50% Syringe 50 ML* 25 GM/50 ML SYRINGE IV PUSH PRN (01:08)
[2017-09-30] MEDS: ceFAZolin 1 GM in Dextrose (*) 1 GM/50 ML BAG IVPB SCH ×2 (01:32→10:48)
[2017-09-30] MEDS: oxyCODONE TAB* 5 MG TAB PO PRN ×4 (02:09→23:09)
[2017-09-30] MEDS ORDERED: Ondansetron INJ* 2 MG/ML VIAL IV PRN (02:09)
[2017-09-30] MEDS: Morphine VIAL* 4 MG/ML VIAL (1 ml vial) IV PRN ×3 (02:09→21:19)
[2017-09-30] MEDS ORDERED: diPHENhydraMINE IV* 50 MG/ML 1 ml VIAL (BENADRYL) IV PRN (02:09)
[2017-09-30] MEDS ORDERED: Ondansetron TAB* 4 MG PO PRN (02:09)
[2017-09-30] MEDS ORDERED: oxyCODONE/Acetamin 5/325 MG* TAB PO PRN (02:09)
--- NOTE | 2017-09-30 05:16 | CONS ---
[facility] MEDICINE CONSULTATION REPORT: DATE OF CONSULT: 09/29/17 PROVIDER: Pennie Fox NP ATTENDING PHYSICIAN: Dr. Cazares. CONSULTING PHYSICIAN: Dr. Yuniel Zhou (dictated by Pennie Fox NP). REASON FOR CONSULT: Comanagement of chronic comorbid medical conditions. HISTORY OF PRESENT ILLNESS: Mr. Chen is a 67-year-old male with a past medical history significant of osteoarthritis of the right hip who presented to the hospital today for a planned right total hip replacement with Dr. Cazares. Please see dictated H and P from Tessa Garcia for complete details. In brief , the patient had ongoing pain and failed conservative measures and therefore opted to have a right total hip replacement. In the postoperative period, the patient is feeling well. He has no complaints. PAST MEDICAL HISTORY: 1. Small cell carcinoma of the lung, in remission. 2. Bladder cancer, in remission. 3. Diabetes. 4. Hyperlipidemia. 5. Hypertension. 6. History of an IN. 7. History of coronary artery disease. 8. History of CHF. 9. History of stroke. 10. COPD. 11. GERD. 12. BPH. PAST SURGICAL HISTORY: 1. Hernia repair. 2. Fingertip amputation. 3. Back surgery. 4. Fem-pop bypass. 5. Carotid endarterectomy. 6. Stent placement. OUTPATIENT MEDICATIONS: 1. Omeprazole 20 mg. 2. Atorvastatin 80 mg. 3. Plavix 75 mg p.o. daily. 4. Flomax 0.4 mg p.o. daily. 5. Albuterol/ipratropium. 6. Aspirin 81 mg p.o. daily. 7. Coreg 12.5 mg b.i.d. 8. Nitro 0.4 mg sublingual as needed for chest pain. 9. Albuterol HFA inhaler 2 puffs q.4 hours as needed for shortness of breath. 10. Morphine extended release 15 mg p.o. t.i.d. p.r.n. pain. 11. Trazodone 100 mg p.o. q.p.m. 12. Metformin 500 mg p.o. b.i.d. 13. Zofran 4 mg p.o. q.6 hours as needed. 14. Torsemide 40 mg p.o. q.p.m. 15. Potassium chloride 20 mEq p.o. q.a.m. 16. Omeprazole 20 mg p.o. q.a.m. 17. Magnesium oxide 400 mg p.o. q.a.m. 18. Nasonex 2 sprays q.a.m. 19. Milk of magnesia 30 mL q.6 hours as needed. 20. Lidocaine patch 1 patch transdermal q.p.m. 21. Ibuprofen 600 mg q.8 hours as needed for pain. 22. Acetaminophen. 23. Carboxymethylcellulose sodium 0.5% to left eye 4 times a day. 24. Amiodarone 20 mg p.o. q.a.m. ALLERGIES: He is allergic to LISINOPRIL, LIPITOR, BEE and CAT. FAMILY HISTORY: Father with an IN at age 39. Mother with diabetes. Cancer, father and mother both with lung cancer. SOCIAL HISTORY: Patient does smoke 1 pack per day. He does occasional alcohol use. Denies any illicit drug use. He is single. He is a full code. REVIEW OF SYSTEMS: General: He has had no fever, chills or unintended weight loss. He denies any chest pain or edema. Respiratory: Denies any cough or congestion. Denies any hemoptysis or shortness of breath. GI: Denies any nausea, vomiting or diarrhea. Denies any abdominal pain. : Denies any gross hematuria or dysuria. Neuro: He denies any focal weakness or sensory loss. Eyes: Denies any visual complaints. ENT: Denies any dysphagia. Musculoskeletal: He does report some joint pain in the right hip prior to surgery. Denies any myalgias. Skin: No rashes or lesions. Psych: Denies any depression or anxiety. PHYSICAL EXAMINATION: Vital Signs: Temperature was 96.8, blood pressure 113/66 , heart rate was 54, respirations 18, O2 saturation was 94% on room air. General: Mr. Chen is sitting up in the bed. He is no acute distress. Neuro: He is alert and oriented x3. He is able to move all extremities. EOMs are intact. Heart: S1, S2. There are no murmurs, rubs or gallops. Regular rate and rhythm. Respiratory: Lungs are clear to auscultation bilaterally. No accessory muscle use and good aeration. Abdomen is soft and nontender. Bowel sounds are present x4. Extremities: There is no cyanosis or edema. Pedal and post tibial pulses are +2 bilaterally. He does have sensation to bilateral lower legs. Skin is intact. He does have a dressing intact to his right hip. LABORATORY DATA: Preoperatively, on 09/21/17, WBCs were 8.2, RBCs 4.04, hemoglobin was 13.2, hematocrit was 40, platelet count was 206. INR on was 0.86. PTT was 28.7. On 09/21/17, sodium was 139, potassium 4.2, chloride was 98, carbon dioxide was 33, anion gap was 8, BUN was 21, creatinine was 1.36, glucose was 80, A1c was 5.6. On 09/21/17, his urine pH was 6.0. Urine nitrites were negative. Specific gravity was 1.008. Urine protein was negative. Ketones were negative. Blood was 1+. Nitrites were negative. Bilirubin was negative, rbc's were +3. Urobilinogen was negative, wbc's +1. Urine leukocyte esterase was 1+. Urine rbc's 1+. Urine glucose was negative. Bacteria was absent. IMPRESSION AND PLAN: Mr. Chen is a 67-year-old gentleman with significant past medical history for small cell lung carcinoma, bladder cancer, diabetes, hyperlipidemia, hypertension, coronary artery disease, myocardial infarction, congestive heart failure, stroke, chronic obstructive pulmonary disease, acid reflux, and benign prostatic hypertrophy, who presented for an elective right total hip replacement with Dr. Cazares. In the immediate postoperative period, he has no complaints. Hospital Medicine was called for consultation in regards to comanagement of his comorbid chronic medical conditions. Our recommendations are as follows: 1. Right total hip. Management per Orthopedics. PT and OT as per Orthopedics. Pain management per Orthopedics. 2. Diabetes. At this time, I would recommend holding his metformin. We will do Accu-Chek a.c. with lispro sliding scale. 3. Chronic obstructive pulmonary disease. I will continue him on Albuterol inhaler and DuoNebs as needed for shortness of breath and wheezing. 4. Coronary artery disease. I would recommend continuing him on Coreg 12.5 mg b.i.d., aspirin 81 mg. It was also recommended by his store associate that he may hold his Plavix for 5 to 7 days prior to surgery. He has been off his Plavix as of 09/29/17 for 8 days. I would recommend, when able and cleared by Orthopedics, to restart his Plavix 75 mg p.o. daily. I also recommend continuing his amiodarone 200 mg daily. 5. History of congestive heart failure. The patient is not currently having any symptoms of congestive heart failure. I would recommend stopping his IV fluids and restarting his furosemide 40 mg p.o. daily tomorrow. 6. Hyperlipidemia. I would recommend continuing his Lipitor 80 mg p.o. daily. 7. Acid reflux. I will continue his omeprazole. 8. Code status. He is a full code. 9. DVT prophylaxis as per Orthopedics 10. Disposition. The patient will be inpatient. TIME SPENT: Time spent on this consultation was approximately 45 minutes, more than half the time was spent with the patient at the bedside reviewing events leading and thus far to his hospitalization, performing physical exam, and reviewing my plan of care. I have discussed this plan with my attending, Dr. Yuniel Zhou, and he is in agreement with my plan. PENNIE FOX, INTEGRITY SPECIALIST [id number]/[facility] #: [id number] BRY
[2017-09-30] MEDS: Lidocaine Patch REMOVE* 1 NOTE MISC PATCH OFF SCH (05:25)
[2017-09-30 05:53] LABS: Hematocrit 33 % (42-52); Mean Platelet Volume 8.3 um3 (7.4-10.4); Platelet Count 169 10^3/ul (150-450)
[2017-09-30 05:59] LABS: INR 0.96 (0.77-1.02)
[2017-09-30] MEDS: Albuterol 2.5 MG/3 ML NEB.SOL* (0.083%) INH PRN ×2 (06:00→22:20)
[2017-09-30] MEDS: oxyCODONE/Acetamin 5/325 MG* TAB PO PRN ×3 (06:13→20:12)
[2017-09-30 06:14] LABS: EGFR Non-African American 73.9 (>60)
[2017-09-30] MEDS: Insulin LISPRO* 1 UNITS UNIT SUBCUT SCH ×3 (07:37→18:01)
[2017-09-30] MEDS: Gabapentin CAP(*) 300 MG PO SCH ×2 (08:44→20:12)
[2017-09-30] MEDS: Docusate CAP* 100 MG PO SCH ×2 (08:45→20:14)
[2017-09-30] MEDS: Carvedilol TAB* 6.25 MG PO SCH ×2 (08:45→20:13)
[2017-09-30] MEDS: Potassium Chlor TAB* 20 MEQ TAB.ER PO SCH (08:46)
[2017-09-30] MEDS: Magnesium Oxide TAB* 400 MG PO SCH (08:46)
[2017-09-30] MEDS: Omeprazole CAP* 20 MG PO SCH (08:46)
[2017-09-30] MEDS: Magnesium Hydroxide LIQ* 30 ML UDC PO SCH ×2 (08:46→20:14)
[2017-09-30] MEDS: Amiodarone TAB* 200 MG PO SCH (08:46)
[2017-09-30] MEDS: Neomycin/Polymy/Dex OPHTH.OIN* 3.5 GM LEFT EYE SCH ×2 (08:47→21:12)
[2017-09-30] MEDS: Artificial Tears* 15 ML BTL LEFT EYE SCH ×4 (08:47→21:12)
[2017-09-30] MEDS: Nicotine Patch Removal NOTE PATCH OFF SCH (09:27)
[2017-09-30] MEDS: Nicotine PATCH 21 MG/24 HR* PATCH TRANSDERM SCH (10:17)
--- NOTE | 2017-09-30 11:24 | PN ---
Progress Note - Progress Note Date of Service: 09/30/17 SOAP: Subjective: [Pt was seen today sitting up in the chair. He has no complaints. Was curious about his weight bearing status. Pt states that he is in moderate pain. Denies any SOB, chest pain, palpitations, nausea, vomiting. ] Objective: [General: alert, awake and oriented. NAD MSK, RLE: Inspection of the RLE reveals dressing that is c/d/i. Able to flex and extend knee and dorsiflex and planterflex the ankle. Sensation is intact to light touch and he has a 2+ DP pulse. Calf is soft and non tender. ] Vital Signs Temp 97.6 F 09/30/17 07:37 Pulse 78 09/30/17 07:37 Resp 18 09/30/17 10:22 BP 149/75 09/30/17 07:37 Pulse Ox 96 09/30/17 08:00 Intake & Output 09/29/17 09/30/17 09/30/17 18:59 06:59 18:59 Intake Total 2200 1940 225 Output Total 425 1425 100 Balance 1775 515 125 Weight 229 lb Intake: IV Fluids 2200 1100 ABX - CEFAZOLIN 100 LR 2200 1000 Oral 840 225 Output: Urine 100 Freire 425 1425 Other: Estimated Void Large # Bowel Movements 0 Estimated Blood Loss 250 Comment # Voids 1 Assessment: [POD 1 RTHA ] Plan: [TTWB was discussed with the pt. The pt was stood up and the providers hand was placed under his foot in order to make sure he was not applying pressure. This was discussed with PT and they will go over this again with him. Continue with current pain medication Continue with PT/OT Hospitalists co-managing 8 mg of Coumadin this evening, INR was 0.96 Posterior hip precautions were reviewed with the pt again. ]
[2017-09-30] MEDS ORDERED: Enoxaparin(*) 40 MG/0.4 ML SYR SUBCUT SCH (12:00)
--- NOTE | 2017-09-30 12:42 | OP ---
DATE OF OPERATION: 09/29/17 - ROOM #347 DATE OF : 52 ATTENDING SURGEON: Rubia Cazares MD DISTILLING DEPARTMENT SUPERVISOR: YOVANNY Hsu did help throughout the procedure with preparation of the leg, wound retraction, manipulation of the hip, and wound closure. ANESTHESIOLOGIST: Dr. Blanco. ANESTHESIA: Spinal. PRE-OP DIAGNOSIS: INCOMPLETE DICTATION [id number]/[facility] #: [id number] [facility]
--- NOTE | 2017-09-30 12:50 | OP ---
DATE OF OPERATION: 09/29/17 - ROOM #347 DATE OF : 52 SURGEON: Rubia Cazares MD. GLASS PRESSER: YOVANNY Hsu. Mr. Nath did help throughout the procedure with preparation of the leg, wound retraction, manipulation of the hip, and wound closure. ANESTHESIOLOGIST: Dr. Blanco. ANESTHESIA: Spinal. PRE-OP DIAGNOSES: Severe endstage degenerative osteoarthritis of the right hip joint with subluxation of the femoral head. POST-OP DIAGNOSES: Severe endstage degenerative osteoarthritis of the right hip joint with femoral head deformity and severe acetabular bone stock deformity. OPERATIVE PROCEDURE: Right total hip arthroplasty. ESTIMATED BLOOD LOSS: 300 cc. COMPLICATIONS: None. SPECIMEN: Femoral head and acetabular reaming sent to pathology. HARDWARE USED: This is uncemented [place] total hip arthroplasty hardware. For the cup, a 54 Tritanium cluster hole acetabular shell 52D. 16 and 25 mm were used. For the stem, an Accolade TMZF, size 4.5 with a 127-degree neck. For the head, an LFIT V40 femoral head 22.2 +0 and the MDM X3 insert 22.2/38/ 38E. BRIEF HISTORY/INDICATIONS: Ms. Chen is a 67-year-old gentleman with years of increasingly severe right hip pain. He failed conservative treatment with anti - inflammatories, pain medication, and physical therapy. Radiographs showed severe endstage arthritis with subluxation of the femoral head out of the acetabulum and extreme wear of both the femoral bone and superolateral acetabular bone. Due to continued severe pain and decreased quality of life patient elected to undergo right total hip arthroplasty. Informed consent was obtained from the patient. He understood the risks of the surgery included, but were not limited to bleeding, infection, damage to nearby structures, continued pain, need for further surgery, intraoperative fracture, nerve palsy, hardware failure or loosening, dislocation, leg length discrepancy, stroke, heart attack, blood clot, and . He wished to proceed. Specific to this patient, he understood I had the distinct possibility that I would not be able to use primary acetabular implant due to his extreme bone loss superiorly. INTRAOPERATIVE FINDINGS: Intraoperatively, the patient was noted to have a deformed femoral head with severe loss of bone. His entire hip joint was significantly inflamed with inflammatory tissue around the entire capsule. The acetabulum was severely deformed with loss of bone superolaterally. His bone was extremely osteopenic. DESCRIPTION OF PROCEDURE: Mr. Chen was identified in the preanesthesia unit. His right lower extremity was marked as the correct operative side. Informed consent was signed and placed in the chart. The patient was taken to the operating room and placed under spinal anesthesia. A Freire catheter was placed. The patient was placed in the left lateral decubitus position on the peg board. All bony prominences were well padded. Right lower extremity was prepped and draped in the usual sterile fashion. Preop time-out was made to correctly identify the patient's side and site. Appropriate perioperative antibiotics were given within 1 hour of incision. A 15-cm posterior hip incision was made with a 10 blade, carried down to the lateral fascial layer. A new 10 blade was used to incise the lateral fascial layer in line with the skin incision. A Charnley retractor was placed. The piriformis and conjoint tendons were identified on the posterolateral femur. These were elevated using electrocautery and tagged with #5 Ethibond. Next, electrocautery was used to make a standard posterolateral capsular flap. This was tagged with #5 Ethibond. The hip was easily dislocated. Femoral head had the shape of mushroom and was extremely deformed. Oscillating saw was used to make the appropriate femoral neck cut and the femoral head was removed. After appropriate placement of retractors, the acetabulum was visualized. Superolateral acetabulum had extensive bone loss. Any remaining labrum was sharply removed from the rim. Electrocautery and rongeur were used to remove large amounts of inflammatory synovitis around the capsule. The acetabulum was then sequentially reamed, staying inferior and medial. Bone was noted to be extremely osteopenic. There were substantial anterior posterior coffman remaining. The reaming was performed up to a size 51. Tritanium cluster hole shell size 52 was chosen as the final implant. This was impacted into the acetabulum without difficulty. Although there was overhanging superolaterally, the cup was stable. Two screws were placed in the superoposterior quadrant for extra stability. These were lengths 16 and 25 mm. MDM cementless liner 38E was chosen as the correct liner. This was impacted into the acetabulum without difficulty. Stability of the liner was checked and rechecked and noted to be stable. Attention was next turned to the preparation of the femoral canal. A canal finder was used to enter the femur. Femoral canal was sequentially broached up to a size 4.5. A 4.5 broach had good fit and stability. There was appropriate anteversion. A 127 neck trial with a +0 head trial and liner was chosen. The hip was reduced and taken through a range of motion. The hip was stable in all positions. There was appropriate soft tissue tension and leg length. The hip was carefully dislocated. The hip was copiously irrigated with sterile saline. All trials were removed. Final implant was an accolade TMZF size 4.5 with a 127-degree neck. This was impacted into femoral canal without difficulty. There was good stability and appropriate anteversion. A 22.2 +0 LFIT V40 femoral head was chosen and prepared to the appropriate 38D MDM liner. This was impacted onto femoral neck. The hip was reduced and taken through a range of motion. The hip was stable in all positions. Once again the hip was copiously irrigated with sterile saline. Previously tagged capsule and tendon were reapproximated to the posterolateral femur through 2 trochanteric drill holes. The lateral fascial layer was closed using interrupted #1 Vicryl. The rest of the incision was closed in a layered fashion using 0 and 2-0 Vicryl. Skin was closed using running 3-0 Monocryl and Dermabond. Sterile Adaptic, 4x4s, and paper tape were used to cover the incision. The patient's anesthesia was reversed without difficulty. He was taken to the PACU in stable condition. Intended weightbearing will be toe-touch weightbearing for the next 4 to 6 weeks due to his extreme osteopenia. Posterior hip precautions and DVT prophylaxis of Coumadin with a Lovenox bridge. [id number]/[facility] #: [id number] [facility] HOSPITALFederico
[2017-09-30] MEDS ORDERED: Warfarin TAB(*) 4 MG PO ONE (17:00)
[2017-09-30] MEDS: Atorvastatin* 80 MG TAB PO SCH (17:14)
[2017-09-30] MEDS: Tamsulosin CAP* 0.4 MG PO SCH (17:14)
[2017-09-30] MEDS: traZODone TAB* 100 MG PO SCH (17:14)
[2017-09-30] MEDS: Lidocaine PATCH 5%* 1 PATCH TRANSDERM SCH (17:16)
[2017-09-30] MEDS ORDERED: Torsemide TAB* 20 MG PO SCH (18:00)
--- NOTE | 2017-09-30 23:13 | PN ---
Subjective Date of Service: 09/30/17 Interval History: Complains of pain in his hip. No chest pain, shortness of breath, orthopnea, palpitations, nausea, constipation, diarrhea. He feels anxious. Objective Active Medications: Acetaminophen (Tylenol Tab*) 650 mg PO Q4H PRN PRN Reason: PAIN OR TEMPERATURE Albuterol (Ventolin 2.5 Mg/3 Ml Neb.Luz Elena*) 2.5 mg INH QID PRN PRN Reason: SHORTNESS OF BREATH Last Admin: 09/30/17 22:20 Dose: 2.5 mg Albuterol (Ventolin Hfa Inhaler*) 2 puff INH Q4H PRN PRN Reason: WHEEZING Amiodarone HCl (Cordarone Tab*) 200 mg PO QAM [facility] Last Admin: 09/30/17 08:46 Dose: 200 mg Atorvastatin Calcium (Lipitor*) 80 mg PO QPM [facility] Last Admin: 09/30/17 17:14 Dose: 80 mg Bisacodyl (Dulcolax Supp*) 10 mg ME DAILY PRN PRN Reason: constipation Carvedilol (Coreg Tab*) 12.5 mg PO BID [facility] Last Admin: 09/30/17 20:13 Dose: 12.5 mg Cyclobenzaprine HCl (Flexeril Tab*) 10 mg PO TID PRN PRN Reason: SPASMS Device (Nicotine Mouth Piece*) 1 each INH .USE WITH NICOTROL PRN PRN Reason: CRAVING Dextrose (D50w Syringe 50 Ml*) 12.5 gm IV PUSH .FOR FS < 60 - SS PRN PRN Reason: FS < 60 Diphenhydramine HCl (Benadryl Iv*) 12.5 mg IV Q6H PRN PRN Reason: PRURITIS Docusate Sodium (Colace Cap*) 100 mg PO BID [facility] Last Admin: 09/30/17 20:14 Dose: Not Given Enoxaparin Sodium (Lovenox(*)) 40 mg SUBCUT Q24H [facility] Last Admin: 09/30/17 12:11 Dose: 40 mg Gabapentin (Neurontin Cap(*)) 900 mg PO BID [facility] Last Admin: 09/30/17 20:12 Dose: 900 mg Insulin Human Lispro (Humalog*) 0 units SUBCUT AC [facility] PRN Reason: Protocol Last Admin: 09/30/17 18:01 Dose: 1 unit Lactulose (Lactulose*) 30 ml PO Q6H PRN PRN Reason: constipation Lidocaine (Lidoderm 5% Patch*) 1 patch TRANSDERM QPM [facility] Last Admin: 09/30/17 17:16 Dose: 1 patch Magnesium Hydroxide (Milk Of Magnesia Liq*) 30 ml PO BID [facility] Last Admin: 09/30/17 20:14 Dose: Not Given Magnesium Hydroxide (Milk Of Magnesia Liq*) 30 ml PO Q6H PRN PRN Reason: constipation Magnesium Oxide (Magox 400 Tab*) [facility] Last Admin: 09/30/17 08:46 Dose: 400 mg Morphine Sulfate (Morphine Vial*) 2 mg IV Q2H PRN PRN Reason: PAIN Last Admin: 09/30/17 21:19 Dose: 2 mg Neomycin/Polymyxin/Dexamethasone (Maxitrol 0.1% Opth*) 1 applic LEFT EYE BID [facility] Last Admin: 09/30/17 21:12 Dose: 1 apply Nicotine (Nicotine Inhaler*) 10 mg INH Q2H PRN PRN Reason: CRAVING Nicotine (Nicotine Patch 21 Mg/24 Hr*) 1 patch TRANSDERM DAILY [facility] Last Admin: 09/30/17 10:17 Dose: 1 patch Nitroglycerin (Nitroglycerin Tab 0.4 Mg*) 0.4 mg SL Q5M PRN PRN Reason: PAIN - CHEST Omeprazole (Prilosec Cap*) 20 mg PO QAM [facility] Last Admin: 09/30/17 08:46 Dose: 20 mg Ondansetron HCl (Zofran Inj*) 4 mg IV Q6H PRN PRN Reason: Nausea/Vomiting Stop: 10/01/17 02:09 Ondansetron HCl (Zofran Inj*) 4 mg IV Q6H PRN PRN Reason: nausea Ondansetron HCl (Zofran Tab*) 4 mg PO Q6H PRN PRN Reason: NAUSEA Oxycodone HCl (Roxycodone Tab*) 10 mg PO Q4H PRN PRN Reason: SEVERE PAIN Last Admin: 09/30/17 17:14 Dose: 10 mg Oxycodone/Acetaminophen (Percocet 5/325 Tab*) 2 tab PO Q4H PRN PRN Reason: PAIN Last Admin: 09/30/17 20:12 Dose: 2 tab Oxycodone/Acetaminophen (Percocet 5/325 Tab*) 1 tab PO Q4H PRN PRN Reason: PAIN Pharmacy Profile Note (Scopolamine Patch Remove*) 1 note PATCH OFF ONCE ONE Stop: 10/02/17 06:01 Pharmacy Profile Note (Lidocaine Patch Remove*) 1 note PATCH OFF 0600 [facility] Last Admin: 09/30/17 05:25 Dose: Not Given Pharmacy Profile Note (Nicotine Patch Removal Note*) 1 note PATCH OFF 0800 [facility] Last Admin: 09/30/17 09:27 Dose: 1 note Polyethylene Glycol/Electrolytes (Miralax*) 17 gm PO DAILY PRN PRN Reason: Constipation Polyvinyl Alcohol (Polyvinyl Alcohol 1.4% Opth*) 1 drop LEFT EYE QID [facility] Last Admin: 09/30/17 21:12 Dose: 1 drop Potassium Chloride (Klor Con Er Tab*) 20 meq PO QAM [facility] Last Admin: 09/30/17 08:46 Dose: 20 meq Tamsulosin HCl (Flomax Cap*) 0.4 mg PO QPM [facility] Last Admin: 09/30/17 17:14 Dose: 0.4 mg Torsemide (Demadex*) 40 mg PO QPM [facility] Last Admin: 09/30/17 17:14 Dose: 40 mg Trazodone HCl (Desyrel Tab*) 100 mg PO QPM [facility] Last Admin: 09/30/17 17:14 Dose: 100 mg Vital Signs - 8 hr 09/30/17 09/30/17 09/30/17 15:34 16:00 17:12 Temperature 98.1 F Pulse Rate 74 Respiratory 16 18 Rate Blood Pressure 111/53 (mmHg) O2 Sat by Pulse 93 93 Oximetry 09/30/17 09/30/17 09/30/17 17:14 20:12 21:19 Temperature Pulse Rate Respiratory 20 20 18 Rate Blood Pressure (mmHg) O2 Sat by Pulse Oximetry 09/30/17 09/30/17 09/30/17 21:32 22:20 22:21 Temperature Pulse Rate 83 Respiratory 18 20 Rate Blood Pressure (mmHg) O2 Sat by Pulse 99 99 Oximetry Oxygen Devices in Use Now: None Appearance: alert, sitting up in the chair, no distress Eyes: No Scleral Icterus Ears/Nose/Mouth/Throat: NL Teeth, Lips, Gums Neck: NL Appearance and Movements; NL JVP Respiratory: Symmetrical Chest Expansion and Respiratory Effort, Clear to Auscultation Cardiovascular: NL Sounds; No Murmurs; No JVD Abdominal: NL Sounds; No Tenderness; No Distention Lymphatic: No Cervical Adenopathy Extremities: - - 2+ le edema b/l with chronic venous stasis skin changes. right hip incision stapled. Skin: No Rash or Ulcers Neurological: Alert and Oriented x 3 Result Diagrams: 09/30/17 05:32 09/30/17 05:32 Assess/Plan/Problems-Billing Assessment: 67 yo man with history of copd, bladder ca, SCLCa (both reportedly in remission) , coronary artery disease, CHF, admitted for elective right hip arthroplasty, who we are following for medical comanagement - Patient Problems (1) COPD (chronic obstructive pulmonary disease) Current Visit: Yes Status: Acute Code(s): J44.9 - CHRONIC OBSTRUCTIVE PULMONARY DISEASE, UNSPECIFIED SNOMED Code(s): 61413798 Comment: controlled with no evidence of exacerbation I note he is not on any controller meds and may benefit from advair long-term (2) Status post total hip replacement, right Current Visit: Yes Status: Acute Code(s): Z96.641 - PRESENCE OF RIGHT ARTIFICIAL HIP JOINT SNOMED Code(s): 271312375745 Comment: plan for PMRU (3) Combined systolic and diastolic heart failure Current Visit: No Status: Acute Code(s): I50.40 - UNSP COMBINED SYSTOLIC AND DIASTOLIC (CONGESTIVE) HRT FAIL SNOMED Code(s): 01842896 Comment: Continue torsemide; he does have some lower extremity edema but does not appear to be decompensated. Avoid IVF, continue coreg. No VASQUEZ due to allergy (4) CAD (coronary artery disease) Current Visit: No Status: Chronic Code(s): I25.10 - ATHSCL HEART DISEASE OF [place] CORONARY ARTERY W/O ANG PCTRS SNOMED Code(s): 60750978 Comment: I recommend resuming ASA/Plavix when possible from an ortho standpoint; will re-evaluate hgb tomorrow post-op (5) Diabetes Current Visit: No Status: Chronic Code(s): E11.9 - TYPE 2 DIABETES MELLITUS WITHOUT COMPLICATIONS SNOMED Code(s): 96465224 Comment: Sugars are well controlled at this time on a sliding scale It appears he had been on lantus earlier this year, but now is only on metformin ? An accurate med rec should be completed in the morning
[2017-10-01] MEDS: oxyCODONE/Acetamin 5/325 MG* TAB PO PRN ×2 (01:59→08:36)
[2017-10-01 05:49] LABS: Hematocrit 31 % (42-52); Hemoglobin 10.4 g/dl (14.0-18.0); Mean Platelet Volume 8.3 um3 (7.4-10.4); Platelet Count 153 10^3/ul (150-450)
[2017-10-01 05:54] LABS: INR 1.05 (0.77-1.02)
[2017-10-01] MEDS: Lidocaine Patch REMOVE* 1 NOTE MISC PATCH OFF SCH (05:54)
[2017-10-01] MEDS: oxyCODONE TAB* 5 MG TAB PO PRN (06:01)
[2017-10-01] MEDS: Albuterol 2.5 MG/3 ML NEB.SOL* (0.083%) INH PRN (07:27)
[2017-10-01 07:57] VITALS: BP 140/68
[2017-10-01] MEDS: Insulin LISPRO* 1 UNITS UNIT SUBCUT SCH (08:31)
[2017-10-01] MEDS: Nicotine Patch Removal NOTE PATCH OFF SCH (08:32)
[2017-10-01] MEDS: Nicotine PATCH 21 MG/24 HR* PATCH TRANSDERM SCH (08:32)
[2017-10-01] MEDS: Artificial Tears* 15 ML BTL LEFT EYE SCH (08:33)
[2017-10-01] MEDS: Magnesium Hydroxide LIQ* 30 ML UDC PO SCH (08:34)
[2017-10-01] MEDS: Gabapentin CAP(*) 300 MG PO SCH (08:35)
[2017-10-01] MEDS: Potassium Chlor TAB* 20 MEQ TAB.ER PO SCH (08:35)
[2017-10-01] MEDS: Neomycin/Polymy/Dex OPHTH.OIN* 3.5 GM LEFT EYE SCH (08:35)
[2017-10-01] MEDS: Magnesium Oxide TAB* 400 MG PO SCH (08:36)
[2017-10-01] MEDS: Docusate CAP* 100 MG PO SCH (08:36)
[2017-10-01] MEDS: Omeprazole CAP* 20 MG PO SCH (08:36)
[2017-10-01] MEDS: Amiodarone TAB* 200 MG PO SCH (08:36)
[2017-10-01] MEDS: Carvedilol TAB* 6.25 MG PO SCH (08:37)
--- NOTE | 2017-10-01 09:29 | PN ---
Progress Note - Progress Note Date of Service: 10/01/17 SOAP: Subjective: []Patient seen at bedside. He feels well today with well controlled right hip pain. Denies chest pain, shortness of breath, dizziness, nausea or leg numbness. Objective: [] Vital Signs Temp 97.5 F 10/01/17 07:27 Pulse 72 10/01/17 07:27 Resp 18 10/01/17 08:36 BP 140/68 10/01/17 07:27 Pulse Ox 100 10/01/17 08:00 Intake & Output 09/30/17 10/01/17 10/01/17 18:59 06:59 18:59 Intake Total 925 1760 225 Output Total 1500 850 400 Balance -575 910 -175 Intake: Oral 925 1760 225 Output: Urine 1500 850 400 Other: Estimated Void Large # Bowel Movements 0 # Voids 1 Laboratory Last Values Hgb 10.4 g/dl (14.0-18.0) L 10/01/17 05:28 Hct 31 % (42-52) L 10/01/17 05:28 Plt Count 153 10^3/ul (150-450) 10/01/17 05:28 MPV 8.3 um3 (7.4-10.4) 10/01/17 05:28 INR (Anticoag Therapy) 1.05 (0.77-1.02) H 10/01/17 05:28 Sodium 133 mmol/L (139-145) L 09/30/17 05:32 Potassium 4.9 mmol/L (3.5-5.0) 09/30/17 05:32 Chloride 99 mmol/L (101-111) L 09/30/17 05:32 Carbon Dioxide 33 mmol/L (22-32) H 09/30/17 05:32 Anion Gap 1 mmol/L (2-11) L 09/30/17 05:32 BUN 16 mg/dL (6-24) 09/30/17 05:32 Creatinine 1.01 mg/dL (0.67-1.17) 09/30/17 05:32 Est GFR ( Amer) 95.0 (>60) 09/30/17 05:32 Est GFR (Non-Af Amer) 73.9 (>60) 09/30/17 05:32 BUN/Creatinine Ratio 15.8 (8-20) 09/30/17 05:32 Glucose 100 mg/dL (70-100) 09/30/17 05:32 POC Glucose (mg/dL) 132 mg/dL (70-100) H 10/01/17 07:20 Calcium 8.4 mg/dL (8.6-10.3) L 09/30/17 05:32 General: Well appearing, NAD RLE: Dressing CDI without erythema or discharge. Thigh is soft. DF/PF intact. Sensation intact distally. DP2+ and capillary refill brisk distally. BL LE: Calves supple and nontender without erythema, edema or palpable cords. Assessment: [][POD 2 RTHA ] Plan: [TTWB RLE Hip precautions PT/OT DC to PMRU Lovenox until therapeutic INR, coumadin 8 mg today
[2017-10-02] MEDS ORDERED: Scopolamine PATCH Remove* 1 NOTE MISC PATCH OFF ONE (06:00)
--- NOTE | 2017-10-02 06:53 | DS ---
DISCHARGE SUMMARY: DATE OF ADMISSION: 09/29/17 DATE OF DISCHARGE: 10/01/17 SURGEON: Rubia Cazares MD * (DICTATED BY YOVANNY WILLIS) MEDICATION TECHNICIAN: YOVANNY Hsu PRE-OP DIAGNOSES: Severe end-stage degenerative osteoarthritis of the right hip joint with subluxation of the femoral head. OPERATIVE PROCEDURE: Right total hip arthroplasty. HISTORY: Mr. Chen is a 67-year-old gentleman with years of increasingly severe right hip pain. He failed conservative treatment with anti- inflammatories, pain medications, physical therapy and elected to undergo a right total hip arthroplasty. HOSPITAL COURSE: Dima Chen was admitted to [facility] on . He underwent a right total hip arthroplasty without complication. He recovered briefly in the PACU and then was transferred to the short-stay surgical unit. On postop day 1, he was alert and oriented, in no acute distress. Inspection of the right lower extremity revealed the dressing is clean, dry, and intact. He is able to flex and extend at the knee and dorsiflex and plantarflex at the ankle. Sensation was intact to light touch. He had a 2+ dorsalis pedis pulse. Calf was soft and nontender. The patient was also seen by a hospitalist service for management of medical comorbidities. Recommendation of a controlled inhaler for COPD was made and questioned as to why he has discontinued Lantus and is only on metformin for diabetic management was also question. No changes in medication was made. Postop day 2, the patient was well appearing, in no acute distress. Dressing was changed. Incision was clean, dry, and intact without erythema or discharge. Thigh was soft. Dorsiflexion and plantarflexion intact. Sensation intact distally. 2+ dorsalis pedis pulse. Capillary refill is brisk distally. Calf supple, nontender without erythema, edema, or palpable cords. The patient was deemed to be medically and orthopedically stable for discharge to [facility]. He will be toe- touch weightbearing of the right lower extremity. He will continue hip precautions. DISCHARGE MEDICATIONS: 1. Omeprazole 20 mg p.o. q.a.m. 2. Atorvastatin 80 mg p.o. q.a.m. 3. Clopidogrel 75 mg p.o. q.a.m. 4. Tamsulosin 0.4 mg p.o. q.p.m. 5. Torsemide 20 mg p.o. q.p.m. 6. Albuterol 2.5 mg inhaled q.i.d. 7. Aspirin 81 mg p.o. q.a.m. 8. Nitroglycerin 0.4 mg sublingual q.5 minutes p.r.n. 9. Carvedilol 12.5 mg p.o. b.i.d. 10. Gabapentin 900 mg p.o. b.i.d. 11. Albuterol 2 puffs inhaled q.4 hours p.r.n. 12. Potassium 20 mEq p.o. q.a.m. 13. Magnesium oxide 400 mg p.o. q.a.m. 14. Metformin 500 mg p.o. b.i.d. 15. Docusate 200 mg p.o. b.i.d. 16. Morphine extended release 15 mg p.o. t.i.d. p.r.n. 17. Trazodone 100 mg p.o. q.p.m. 18. Neomycin, polymyxin, and dexamethasone eye drops apply 1 application to left eye b.i.d. 19. Refresh Plus 0.5 mg left eye q.i.d. 20. Magnesium hydroxide 30 mL q.6 hours p.r.n. 21. Amiodarone 200 mg p.o. q.a.m. 22. Nasonex 17 g spray, 2 sprays nasally q.a.m. 23. Nicotine patch 21 mg q.24 hours, transdermally q.a.m. 24. Lidocaine (Lidoderm) 5% patch 1 patch transdermally q.p.m. 25. Zofran 4 mg p.o. q.6 hours. 26. Centrum Silver vitamin daily. 27. Acetaminophen 650 mg p.o. q.4 hours. 28. Docusate 100 mg p.o. b.i.d. p.r.n. 29. Lovenox 40 mg subcu q.24 hours until INR is therapeutic. 30. Nicotine inhaler 10 mg ampule inhaled q.2 hours p.r.n. 31. Percocet 5/325 one to two tabs every 4 to 6 hours p.r.n., max daily dose of 10. 32. Warfarin 2 mg tabs, take 1 to 3 tabs daily per INR dosing. DISCHARGE INSTRUCTIONS: Toe-touch weightbearing of the right lower extremity. Okay to shower after postop day 3. Do not submerge wound. Continue hip precautions. Coumadin dosing per PMRU, today take 8 mg. Last INR was 1.05. Continue Lovenox only until INR becomes therapeutic between 2 and 3. Pain control with Percocet 5/325 one to two tabs every 4 to 6 hours as needed for pain, max daily dose of 10 per day. Follow up with Dr. Cazares in 10 to 14 days. Call for an appointment. YOVANNY WILLIS [id number]/[facility] #: [id number] [facility]
== END 2017-10-01 10:15 | DRG 470 ==
LOC: AA 07:43 → SSU 15:08 → AA 15:08 → SSU 15:09
PROVIDERS: ADMIT Orthopaedic Surgery Adult Reconstructive Orthopaedic Surgery; ATTEND Orthopaedic Surgery Adult Reconstructive Orthopaedic Surgery
PROC: 0SR902A Replacement of Right Hip Joint with Metal on Polyethylene Synthetic Substitute, Uncemented, Open Approach (ICD-10-PCS; principal; 2017-09-29 10:00)
DX: M16.11 Unilateral primary osteoarthritis, right hip (principal); S73.001A Unspecified subluxation of right hip, initial encounter; M87.9 Osteonecrosis, unspecified; I50.42 Chronic combined systolic (congestive) and diastolic (congestive) heart failure; I50.82 Biventricular heart failure; E78.5 Hyperlipidemia, unspecified; I25.10 Atherosclerotic heart disease of native coronary artery without angina pectoris; I11.0 Hypertensive heart disease with heart failure; K21.9 Gastro-esophageal reflux disease without esophagitis; N40.0 Benign prostatic hyperplasia without lower urinary tract symptoms; M65.9 Synovitis and tenosynovitis, unspecified; F17.210 Nicotine dependence, cigarettes, uncomplicated; E66.01 Morbid (severe) obesity due to excess calories; G47.33 Obstructive sleep apnea (adult) (pediatric); M51.26 Other intervertebral disc displacement, lumbar region; M48.061 Spinal stenosis, lumbar region without neurogenic claudication; I08.1 Rheumatic disorders of both mitral and tricuspid valves; I27.20 Pulmonary hypertension, unspecified; I77.819 Aortic ectasia, unspecified site; E11.51 Type 2 diabetes mellitus with diabetic peripheral angiopathy without gangrene; I48.0 Paroxysmal atrial fibrillation; I25.5 Ischemic cardiomyopathy; E11.42 Type 2 diabetes mellitus with diabetic polyneuropathy; E11.36 Type 2 diabetes mellitus with diabetic cataract; R20.0 Anesthesia of skin; M41.9 Scoliosis, unspecified; M21.951 Unspecified acquired deformity of right thigh; M85.88 Other specified disorders of bone density and structure, other site; M85.851 Other specified disorders of bone density and structure, right thigh; J44.9 Chronic obstructive pulmonary disease, unspecified; Z85.51 Personal history of malignant neoplasm of bladder; Z85.118 Personal history of other malignant neoplasm of bronchus and lung; Z95.5 Presence of coronary angioplasty implant and graft; Z79.02 Long term (current) use of antithrombotics/antiplatelets; Z79.82 Long term (current) use of aspirin; I25.2 Old myocardial infarction; Z89.029 Acquired absence of unspecified finger(s); Z88.8 Allergy status to other drugs, medicaments and biological substances; Z91.030 Bee allergy status; Z91.048 Other nonmedicinal substance allergy status; Z82.5 Family history of asthma and other chronic lower respiratory diseases; Z72.89 Other problems related to lifestyle; Z68.32 Body mass index [BMI] 32.0-32.9, adult; Z82.49 Family history of ischemic heart disease and other diseases of the circulatory system; Z80.1 Family history of malignant neoplasm of trachea, bronchus and lung; I69.398 Other sequelae of cerebral infarction
CPT/HCPCS: 36415; 80048; 85014; 85018; 85049; 85610; 88304; 88311; 94640; A9270-GY; C1713; C1776; G8978-GP-CK; G8979-GP-CI; G8987-GO-CL; G8988-GO-CI; J0690; J1650; J2250; J2270; J2704; J2795; J3010

== ENCOUNTER 2017-10-01 07:21 | Inpatient (IN) | payer MEDICARE, OTHER, MEDICAID ==
[2017-10-01] MEDS ORDERED: Senna TAB PO PRN (10:30)
[2017-10-01] MEDS ORDERED: Acetaminophen TAB* 325 MG PO PRN (10:30)
[2017-10-01] MEDS ORDERED: Dextrose 50% Syringe 50 ML* 25 GM/50 ML SYRINGE IV PUSH PRN (10:36)
[2017-10-01] MEDS ORDERED: oxyCODONE/Acetamin 5/325 MG* TAB PO PRN (10:39)
[2017-10-01] MEDS: oxyCODONE TAB* 5 MG TAB PO PRN (10:47)
[2017-10-01] MEDS ORDERED: Methocarbamol TAB* 500 MG PO PRN (12:14)
[2017-10-01] MEDS ORDERED: Albuterol HFA INHALER* 8 gm MDI INH PRN (12:15)
[2017-10-01] MEDS: Insulin LISPRO* 1 UNITS UNIT SUBCUT SCH ×3 (12:16→20:52)
[2017-10-01] MEDS: oxyCODONE/Acetamin 5/325 MG* TAB PO PRN ×3 (14:15→22:17)
[2017-10-01] MEDS: Enoxaparin(*) 40 MG/0.4 ML SYR SUBCUT SCH (14:15)
[2017-10-01] MEDS: Artificial Tears* 15 ML BTL LEFT EYE SCH ×3 (14:18→22:18)
[2017-10-01] MEDS: metFORMIN* 500 MG TAB PO SCH (16:57)
[2017-10-01] MEDS: Torsemide TAB* 20 MG PO SCH (16:57)
[2017-10-01] MEDS: Atorvastatin* 80 MG TAB PO SCH (16:57)
[2017-10-01] MEDS ORDERED: Spiriva Inhaler DEVICE* 1 EACH DEVICE SCH (17:00)
[2017-10-01] MEDS: Magnesium Hydroxide LIQ* 30 ML UDC PO PRN (17:22)
[2017-10-01] MEDS: Nicotine Patch Removal NOTE PATCH OFF SCH (18:45)
--- NOTE | 2017-10-01 20:31 | HP ---
ADMISSION HISTORY AND PHYSICAL: DATE OF ADMISSION: 10/01/17 REASON FOR ADMISSION: Right total hip replacement. HISTORY OF PRESENT ILLNESS: Dima hCen is a 67-year-old male. He has a medical history significant for lung cancer. 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 He is a smoker with a history of COPD. He had a myocardial infarct in 2013. He has an ejection fraction of about 45%. He has had stents done on 3 different occasions. The patient started chemotherapy in January of 2017. The patient has a history of bladder cancer, treated on multiple occasions with resections and BCG, but never with muscle invasion. The patient has completed 5 cycles of chemotherapy. The patient has had significant pain in his right hip. He had seen Dr. Cazares. He was started on MS Contin 15 mg twice a day for his pain. He had x-rays taken, which showed end-stage osteoarthritis. It was decided the best course of action would be for him to have a right total hip replacement. He was sent to his nib adjuster, Dr. Delacruz, prior to surgery for medical clearance. He was cleared for surgery, but it was felt to be risky given his multiple comorbidities. The patient was admitted to [facility] on . He underwent a right total hip replacement that day. Postoperatively, he was slow to mobilize. He was felt to have physical therapy and occupational therapy needs. He is now being admitted for inpatient rehab so that he might return to independent living. PAST MEDICAL HISTORY: Significant for the small cell cancer of his lung. He also has the bladder cancer. He has a history of diabetes, which he takes metformin for. He has a history of coronary artery disease and has had myocardial infarcts. He has congestive heart failure and has had stents in the past as mentioned previously. CURRENT MEDICATIONS: Include: 1. Demadex. 2. Potassium. 3. Flomax. 4. Trazodone. 5. Percocet for pain control. 6. Nicotine patch. 7. Magnesium oxide. 8. Neurontin. 9. Lovenox for DVT prophylaxis. 10. Coreg. 11. Lipitor. 12. Amiodarone. ALLERGIES: To [employer]. Apparently, he got facial swelling with LISINOPRIL. SOCIAL HISTORY: He is a fmnq-[id number]-a-day smoker. Has several alcoholic beverages a week. He lives alone in a 1-story house. REVIEW OF SYSTEMS: The patient reports no current shortness of breath or chest pain. PHYSICAL EXAMINATION VITAL SIGNS: The patient's temperature is 99, blood pressure is 122/47, pulse is 79, respirations 24. HEENT: His extraocular movements are intact. NECK: Supple with no lymphadenopathy. LUNGS: There are scattered wheezes throughout both lungs bilaterally. HEART: Sounds were regular. S1 and S2 were audible. ABDOMEN: Soft and nontender. EXTREMITIES: Right hip has a wound, which is clean and dry. His peripheral pulses were intact. NEUROLOGIC: The patient is awake, alert, oriented. Muscle strength 5/5 in both upper and lower extremities. FUNCTIONAL EXAM: The patient transfers with minimal amount of assistance. ASSESSMENT: Right total hip replacement in a patient with small cell lung cancer, currently undergoing chemotherapy. PLAN: Our plan is to integrate him into a comprehensive and therapeutic rehab program with the following goals: 1. Physical Therapy will work with the patient. They are going to work on functional transfer training, ambulation training with a walker. 2. Occupational Therapy will see the patient, work on his activities of daily living including toileting and toilet transfers. 3. Lovenox for DVT prophylaxis. 4. For his COPD, we are going to restart his Spiriva as well as his DuoNeb nebulizer treatments. 5. For his coronary artery disease, we are going to continue his Coreg and amiodarone as well as Lipitor. 6. For his diabetes, we will restart his metformin. He is on fingersticks four times a day with insulin coverage. 7. For his nicotine addiction, we will continue the nicotine patch. 8. Adequate analgesia. 9. His bowels will be regulated. 10. student services vice president will be closely involved to make sure that any services and equipment the patient requires are in place prior to discharge. 11. Continue Demadex and potassium supplement for congestive heart failure. 12. Home with appropriate services. ESTIMATED LENGTH OF STAY: 7 to 10 days. [id number]/[facility] #: [id number] [facility] SYSTEMFederico
[2017-10-01] MEDS: Gabapentin CAP(*) 300 MG PO SCH (20:50)
[2017-10-01] MEDS: Docusate CAP* 100 MG PO SCH (20:50)
[2017-10-01] MEDS: Carvedilol TAB* 6.25 MG PO SCH (20:50)
[2017-10-01] MEDS: Tamsulosin CAP* 0.4 MG PO SCH (20:50)
[2017-10-01] MEDS: Albuterol/Ipratropium NEB.SOL* Albuterol 2.5 MG/Ipratropium 0.5 MG 3 ML INH PRN (20:55)
[2017-10-01] MEDS ORDERED: Lidocaine PATCH 5%* 1 PATCH TRANSDERM ONE (22:00)
[2017-10-01] MEDS: traZODone TAB* 100 MG PO SCH (22:17)
[2017-10-02] MEDS: Omeprazole CAP* 20 MG PO SCH (05:59)
[2017-10-02 06:57] LABS: Hematocrit 29 % (42-52); Hemoglobin 9.7 g/dl (14.0-18.0); Mean Corpuscular HGB Conc 33 g/dl (31-36); Mean Corpuscular Hemoglobin 32 pg (27-31); Mean Corpuscular Volume 97 fL (80-94); Red Blood Count 3.03 10^6/ul (4.0-5.4); Red Cell Distribution Width 17 % (10.5-15); White Blood Count 11.5 10^3/ul (3.5-10.8)
[2017-10-02 07:13] LABS: EGFR Non-African American 81.3 (>60)
[2017-10-02 07:21] LABS: ABS Basophils 0.1 10^3/ul (0-0.2); ABS Eosinophils 1.3 10^3/ul (0-0.6); ABS Lymphocytes 0.9 10^3/ul (1.0-4.8); ABS Monocytes 1.1 10^3/ul (0-0.8); ABS Neutrophils 8.1 10^3/ul (1.5-7.7); ABS Nucleated RBC 0 10^3/ul; Eosinophil % 11.7 % (0-6); Lymphocyte % 7.4 % (25-47); Mean Platelet Volume 8.7 um3 (7.4-10.4); Nucleated Red Blood Cells % 0; Platelet Count 153 10^3/ul (150-450)
[2017-10-02] MEDS: Insulin LISPRO* 1 UNITS UNIT SUBCUT SCH ×4 (08:04→21:12)
[2017-10-02] MEDS: metFORMIN* 500 MG TAB PO SCH ×2 (08:08→17:30)
[2017-10-02] MEDS: Nicotine PATCH 21 MG/24 HR* PATCH TRANSDERM SCH (08:08)
[2017-10-02] MEDS: Artificial Tears* 15 ML BTL LEFT EYE SCH ×4 (08:10→20:24)
[2017-10-02] MEDS: Amiodarone TAB* 200 MG PO SCH (08:10)
[2017-10-02] MEDS: Carvedilol TAB* 6.25 MG PO SCH ×2 (08:10→20:22)
[2017-10-02] MEDS: Docusate CAP* 100 MG PO SCH ×2 (08:11→20:22)
[2017-10-02] MEDS: Gabapentin CAP(*) 300 MG PO SCH ×2 (08:11→20:21)
[2017-10-02] MEDS: Magnesium Oxide TAB* 400 MG PO SCH (08:12)
[2017-10-02] MEDS: Potassium Chlor TAB* 20 MEQ TAB.ER PO SCH (08:12)
[2017-10-02] MEDS: Tiotropium CAP.INH* CAP.INH/18 MCG (USE ORDER SET !) INH SCH (08:13)
[2017-10-02] MEDS: Magnesium Hydroxide LIQ* 30 ML UDC PO PRN ×2 (08:26→23:35)
[2017-10-02] MEDS ORDERED: Lidocaine Patch REMOVE* 1 NOTE MISC PATCH OFF ONE (10:00)
--- NOTE | 2017-10-02 10:17 | PN ---
Progress Note Date of Service: 10/02/17 Note: AHSAN MOORE JR was visited. Nursing and therapy notes read and reviewed. He had a bowel movement this morning. Denies dysuria. Nursing and patient note after pain meds his O2 sat can decrease overnight. No chest pain, shortness of breath or abdominal pain. He has chronic edema in the left leg and also now some edema in the right leg. Current Medications: Active Medications Generic Name Dose Route Start Last Admin Trade Name Freq PRN Reason Stop Dose Admin Acetaminophen 650 mg 10/01/17 10:30 Tylenol Tab* PO Q6H PRN FEVER/PAIN Albuterol 2 puff 10/01/17 12:15 Ventolin Hfa Inhaler* INH Q6H PRN SOB/WHEEZING Albuterol/Ipratropium 1 neb 10/01/17 16:43 10/01/17 20:55 Duoneb (Albuterol 2.5 Mg/Ipratropium 0.5 Mg) INH 1 neb Q6H PRN Administration SOB/WHEEZING Amiodarone HCl 200 mg 10/02/17 09:00 10/02/17 08:10 Cordarone Tab* PO 200 mg DAILY ALEXX Administration Atorvastatin Calcium 80 mg 10/01/17 17:00 10/01/17 16:57 Lipitor* PO 80 mg 1700 ALEXX Administration Carvedilol 12.5 mg 10/01/17 21:00 10/02/17 08:10 Coreg Tab* PO 12.5 mg BID ALEXX Administration Device 1 each 10/01/17 17:00 Tiotropium Inhaler Device* .SEE ORDER .USE w/ SPIRIVA CAPS ALEXX Dextrose 12.5 gm 10/01/17 10:36 D50w Syringe 50 Ml* IV PUSH .FOR FS < 60 - SS PRN FS < 60 Docusate Sodium 100 mg 10/01/17 21:00 10/02/17 08:11 Colace Cap* PO 100 mg BID ALEXX Administration Enoxaparin Sodium 40 mg 10/01/17 12:00 10/01/17 14:15 Lovenox(*) SUBCUT 40 mg Q24H ALEXX Administration Gabapentin 900 mg 10/01/17 21:00 10/02/17 08:11 Neurontin Cap(*) PO 900 mg BID ALEXX Administration Insulin Human Lispro 0 - 10 units 10/01/17 11:30 10/02/17 08:04 Humalog* SUBCUT Not Given ACHS [facility] Protocol Magnesium Hydroxide 30 ml 10/01/17 10:30 10/02/17 08:26 Milk Of Magnesia Liq* PO 30 ml Q6H PRN Administration CONSTIPATION Magnesium Oxide 400 mg 10/02/17 09:00 10/02/17 08:12 Magox 400 Tab* PO 400 mg DAILY ALEXX Administration Metformin HCl 500 mg 10/01/17 17:00 10/02/17 08:08 Glucophage* PO 500 mg 0800,1700 ALEXX Administration Methocarbamol 750 mg 10/01/17 12:14 Robaxin Tab* PO TID PRN SPASMS Nicotine 1 patch 10/02/17 08:00 10/02/17 08:08 Nicotine Patch 21 Mg/24 Hr* TRANSDERM 1 patch DAILY@0800 ALEXX Administration Nystatin 1 applic 10/02/17 14:00 Nystatin Top Powder* TOPICAL TID ALEXX Omeprazole 20 mg 10/02/17 06:00 10/02/17 05:59 Prilosec Cap* PO 20 mg DAILY@0600 ALEXX Administration Oxycodone HCl 10 mg 10/01/17 10:37 10/01/17 10:47 Roxycodone Tab* PO 10 mg Q4H PRN Administration PAIN - UNCONTROLLED Oxycodone/Acetaminophen 2 tab 10/01/17 10:37 10/01/17 22:17 Percocet 5/325 Tab* PO 2 tab Q4H PRN Administration PAIN - SEVERE Oxycodone/Acetaminophen 1 tab 10/01/17 10:39 Percocet 5/325 Tab* PO Q4H PRN PAIN - MODERATE TO SEVERE Pharmacy Profile Note 1 note 10/01/17 20:00 10/01/17 18:45 Nicotine Patch Removal Note* PATCH OFF 1 note 1999 ALEXX Administration Polyvinyl Alcohol 1 drop 10/01/17 13:00 10/02/17 08:10 Polyvinyl Alcohol 1.4% Opth* LEFT EYE 1 drop QID ALEXX Administration Potassium Chloride 20 meq 10/02/17 09:00 10/02/17 08:12 Klor Con Er Tab* PO 20 meq DAILY ALEXX Administration Senna 2 tab 10/01/17 10:30 Senokot Tab* PO BEDTIME PRN CONSTIPATION Tamsulosin HCl 0.4 mg 10/01/17 21:00 10/01/17 20:50 Flomax Cap* PO 0.4 mg BEDTIME ALEXX Administration Tiotropium [place] 1 cap 10/02/17 09:00 10/02/17 08:13 Spiriva Cap.Inh* INH 1 cap DAILY ALEXX Administration Torsemide 40 mg 10/01/17 18:00 10/01/17 16:57 Demadex* PO 40 mg 1800 ALEXX Administration Trazodone HCl 100 mg 10/01/17 21:00 10/01/17 22:17 Desyrel Tab* PO 100 mg BEDTIME ALEXX Administration Vital Signs: Vital Signs Temp Pulse Resp BP Pulse Ox 97.6 F 72 16 112/60 98 10/02/17 06:06 10/02/17 06:06 10/02/17 08:11 10/02/17 06:06 10/02/17 06:06 Lab Results: Laboratory Results - last 24 hr 10/01/17 10/01/17 10/01/17 11:42 16:37 20:21 WBC RBC Hgb Hct MCV MCH MCHC RDW Plt Count MPV Neut % (Auto) Lymph % (Auto) Duval % (Auto) Eos % (Auto) Baso % (Auto) Absolute Neuts (auto) Absolute Lymphs (auto) Absolute Monos (auto) Absolute Eos (auto) Absolute Basos (auto) Absolute Nucleated RBC Nucleated RBC % Sodium Potassium Chloride Carbon Dioxide Anion Gap BUN Creatinine Est GFR ( Amer) Est GFR (Non-Af Amer) BUN/Creatinine Ratio Glucose POC Glucose (mg/dL) 169 H 140 H 178 H Calcium Total Bilirubin AST ALT Alkaline Phosphatase Total Protein Albumin Globulin Albumin/Globulin Ratio 10/02/17 10/02/17 10/02/17 06:33 06:33 07:59 WBC 11.5 H RBC 3.03 L Hgb 9.7 L Hct 29 L MCV 97 H MCH 32 H MCHC 33 RDW 17 H Plt Count 153 MPV 8.7 Neut % (Auto) 70.5 Lymph % (Auto) 7.4 L Duval % (Auto) 9.9 H Eos % (Auto) 11.7 H Baso % (Auto) 0.5 Absolute Neuts (auto) 8.1 H Absolute Lymphs (auto) 0.9 L Absolute Monos (auto) 1.1 H Absolute Eos (auto) 1.3 H Absolute Basos (auto) 0.1 Absolute Nucleated RBC 0 Nucleated RBC % 0 Sodium 134 L Potassium 4.2 Chloride 99 L Carbon Dioxide 31 Anion Gap 4 BUN 19 Creatinine 0.93 Est GFR ( Amer) 104.5 Est GFR (Non-Af Amer) 81.3 BUN/Creatinine Ratio 20.4 H Glucose 101 H POC Glucose (mg/dL) 110 H Calcium 8.5 L Total Bilirubin 0.40 AST 13 ALT 5 L Alkaline Phosphatase 79 Total Protein 5.8 L Albumin 3.0 L Globulin 2.8 Albumin/Globulin Ratio 1.1 Exam: GEN: no acute distress. Alert and appropriate. LUNGS: clear to auscultation bilaterally. CV: regular rate and rhythm ABD: + bowel sounds, soft, non-tender, non-distended EXT: Left greater than right 3+ pitting edema. Assessment/Plan: 67yo man with h/o small cell lung cancer, bladder cancer, COPD, CAD and CHF who is s/p right total hip replacement. #Right total hip replacement: f/u with Dr. Cazares. TTWB RLE. #Acute post-op anemia: recheck CBC in am #Leukocytosis: new since 09/21 pre-op. No sign of infection. f/u CBC in am. If spikes a fever culture and get CXR. #Bilateral lower extremity edema: He is at increased risk of DVT due to cancer as well as his post-op status. Get bilateral LE venous dopplers. Continue diuretic. #DVT prophyllaxis: lovenox bridge to coumadin. Got 1x dose of coumadin 8mg on . INR today and daily until therapeutic. Restart coumadin based on INR today. D/C lovenox when INR therapeutic. #COPD: spiriva and duoneb prn. Oxygen at night prn. Caution not to overtreat. #Diabetes mellitus: on metformin and sliding scale insulin. Monitor FS. #CAD/CHF: Continue current meds and lipitor. Was on plavix and ASA pre-op. Restart when ok with orthopedics. Will inquire. #Smoker: nicotine replacement. #Advanced directives: full code. #Estimated LOS: discuss with team today at IPOC meeting. 10/02/17 10:36
[2017-10-02 10:27] LABS: INR 1.14 (0.77-1.02)
[2017-10-02] MEDS: oxyCODONE/Acetamin 5/325 MG* TAB PO PRN ×3 (10:33→22:30)
[2017-10-02] MEDS: oxyCODONE TAB* 5 MG TAB PO PRN (12:23)
[2017-10-02] MEDS: Enoxaparin(*) 40 MG/0.4 ML SYR SUBCUT SCH (12:23)
--- NOTE | 2017-10-02 12:46 | PMRUTEAM ---
PMRU: Team Meeting Current Status: Nursing: Current Status Skin Deviations [Right Iliac Skin Tear Crest] Skin Deviations [Right Elbow] Other Skin Deviations [Back] Rash Skin Deviations [Right Hip] Incision Skin Deviations [Right Medial Other Heel] Skin Deviation Description [ 0.2 cm daimeter, skin barier in place Right Iliac Crest] Skin Deviation Description [ redness blanchable Right Elbow] Skin Deviation Description [ scabs Back] Skin Deviation Description [ dsg changed by PA 10/01/17 in AM Right Hip] Skin Deviation Description [ scab Right Medial Heel] Physical Therapy: Current Status Bed Mobility Assistance min-mod A Transfer Moblility Assistance min A Transfer/Bed Mobility Rolling Walker Recommended Devices Ambulation Assistance contact guard Ambulation Assistive Devices Rolling Walker Number of Feet Patient 40' Ambulated Manual Wheelchair Control/ Bilateral UE's Technique Wheelchair Propulsion Ability Standby Assistance Wheelchair Distance (ft) 130' Occupational Therapy: Current Status Upper Body Dressing Supervision Lower Body Dressing Mod Assist Bathing Mod Assist Toileting Max Asst Toilet Transfer Min Assist Eating Independent Rec Therapy: Current Status Summary of Assessment and Pt. was open to conversation. Pt. identified with Clinical Impression numerous interests and active involvement in most of them prior to admission. Pt. states he likes to keep busy and was very interested in recreation and leisure activities while on the unit. Treatment Goals Pt. will engage in leisure activities while on the unit. Treatment Plan Provide RT services and encourage involvement. Social Work: Current Status Discharge Plan return home with home care svs and family support Potential for Family Training pt's sister is supportive and involved Anticipated Discharge Home Destination Discharge With home care svs and family support Goals: Physical Therapy: Initial Goals Bed Mobility Assistance Independent Transfer Mobility Assistance Independent Transfer/Bed Mobility Rolling Walker Recommended Devices Ambulation Independent Ambulation Recommended Devices Rolling Walker Ambulation Distance 150 Occupational Therapy: Initial Goals Goals to be Completed in (Days 5-10 ) Upper Body Bathing Routine Modified Independent with Lower Body Bathing Routine Modified Independent with Upper Body Dressing Routine Independent Lower Body Dressing Routine Modified Independent with Toilet Hygeine and Clothing Modified Independent with Management Routine Toilet Transfer Routine Modified Independent with Step-In Shower Transfer Supervision/Set Up,Minimal Contact Assist Routine Functional Transfers for ADL Modified Independent with Grooming Routine Independent Feeding Routine Independent Nutrition: Goals Intervention Goals 1. Adequate PO intake to prevent loss of lean body mass w/o promoting undesired weight gain 2. Adequate glycemic control per inpatient parameters; no s/sx hypo- or hyperglycemia 3. Maintain serum electrolytes WNL 4. Pt questions re: diet or Coumadin/vit K guidelines will be addressed prior to dc Social Work: Goals Discharge Plan return home with home care svs and family support Potential for Family Training pt's sister is supportive and involved Anticipated Discharge Home Destination Discharge With home care svs and family support Care Plan: Care Plan ADL's - Improve/Maintain Start: 10/01/17 12:01 Freq: DAILY Status: Active Target: Protocol: Activity Type Activity Date Activity User E-Sign Co-Sign Detail Recorded Client Recorded Date Recorded By Document 10/01/17 12:01 [id number] 10/01/17 12:02 [id number] 10/01/17 12:01 PMRU Outcome: ADL's/ADL Transfers Orders/Interventions Occupational Therapy Evaluation & Treatment Communication Tool in Patient Room Device Yes Address Deficits Secondary To: Right ITZEL, TTWB RLE Patient to receive OT 5x/wk for 60-120 Therex min/day Self Care Management Group Therapy UE/LE ADL's with Assist Yes: Ligia ADL Transfers with Assist Yes: Ligia, except Pepe for shower transfer Toileting: Transfers,Clothing Management Yes: mdoI ,Hygeine w/Assist Light Kitchen/Laundry w/Assist No Progression Toward Outcome/Goals Progressing Outcome/Goals Met Pt participated well in OT evaluation, limited 2* pain and TTWB status requiring cues and increased assist for standing portion of ADLs due to limited weight bearing status. Pt will benefit from skilled OT intervention to maximize independence and safety. Discharge Planning - Improve/Maintain Start: 10/01/17 16:00 Freq: DAILY Status: Active Target: Protocol: Activity Type Activity Date Activity User E-Sign Co-Sign Detail Recorded Client Recorded Date Recorded By Document 10/01/17 23:59 [id number] 10/02/17 00:01 [id number] 10/01/17 23:59 PMRU Outcome: Discharge Planning Update Patient Family No /GI-Improve/Maintain Start: 10/01/17 16:00 Freq: DAILY Status: Active Target: Protocol: Activity Type Activity Date Activity User E-Sign Co-Sign Detail Recorded Client Recorded Date Recorded By Document 10/01/17 23:59 [id number] 10/02/17 00:01 [id number] 10/01/17 23:59 PMRU Outcome: Genitourinary/ Gastrointestinal Genitourinary- Outcome/Goals Maintain/ Achieve Urinary Continence Maintain/ Achieve Adequate Urinary Output Gastrointestinal-Outcome/Goals Maintain/ Achieve Bowel Regularity in Accordance with Pt's Baseline Prevent Constipation Progression Toward Outcome/Goals - Progressing Outcome/Goals Met Comment Pt has no BM since 09/28 Metabolic Status- Improve/Maintain Start: 10/01/17 16:00 Freq: DAILY Status: Active Target: Protocol: Activity Type Activity Date Activity User E-Sign Co-Sign Detail Recorded Client Recorded Date Recorded By Document 10/01/17 23:59 [id number] 10/02/17 00:01 [id number] 10/01/17 23:59 PMRU Outcome: Metabolic Status Have Fingersticks Been Ordered Yes Fingerstick Order Frequency AC & HS Outcome/Goals Maintain/ Improve Metabolic Status Progression Toward Outcome/Goals Progressing Mobility- Improve/Maintain Start: 10/01/17 16:00 Freq: DAILY Status: Active Target: Protocol: Activity Type Activity Date Activity User E-Sign Co-Sign Detail Recorded Client Recorded Date Recorded By Document 10/01/17 17:10 [id number] 10/01/17 17:12 [id number] 10/01/17 17:10 PMRU Outcome: Mobility Physical Therapy Evaluation and Yes Treatment Activity OOB with Assistance Yes TTWB Yes Device Yes Assistance Yes Patient to be seen 5x/wk for 60-120 min/ Therex day for: Mobility Training Gait Training Balance Outcome/Goals Maintain/ Achieve Baseline Mobility Status Improve Mobility Status Demonstrates Proper Use of Assistive Devices Free from Complications of Immobility Bed Mobility Yes: independent Transfers Yes: independent with rollingwalker with TTWB Gait x ft Yes: independent with RW 150' while TTWB Up/Down Stairs Yes: up down 1 step (Curb) with RW CGA. Pain/Comfort- Improve/Maintain Start: 10/01/17 16:00 Freq: DAILY Status: Active Target: Protocol: Activity Type Activity Date Activity User E-Sign Co-Sign Detail Recorded Client Recorded Date Recorded By Document 10/01/17 23:59 [id number] 10/02/17 00:01 [id number] 10/01/17 23:59 PMRU Outcome: Pain/Comfort Outcome/Goals Demonstrates Knowledge and Use of Available Comfort Measures Achieves Acceptable Comfort/Pain Level as Determined by Patient/Condit Progression Toward Outcome/Goals Progressing Respiratory - Improve/Maintain Start: 10/01/17 16:00 Freq: DAILY Status: Active Target: Protocol: Activity Type Activity Date Activity User E-Sign Co-Sign Detail Recorded Client Recorded Date Recorded By Document 10/01/17 23:59 [id number] 10/02/17 00:01 [id number] 10/01/17 23:59 PMRU Outcome: Respiratory Does Patient Have a Trach No Outcome/Goals Maintain/ Improve O2 Sat per MD Order Progression Toward Outcome/Goals Progressing Safety- Improve/Maintain Start: 10/01/17 16:00 Freq: DAILY Status: Active Target: Protocol: Activity Type Activity Date Activity User E-Sign Co-Sign Detail Recorded Client Recorded Date Recorded By Document 10/01/17 23:59 [id number] 10/02/17 00:01 [id number] 10/01/17 23:59 PMRU Outcome: Safety Outcome/Goals Remain Free of Injury or Harm Cooperates with Safety Measures for Least Restrictive Environment Prevent Falls/ Injury Progression Toward Outcome/Goals Progressing Skin- Improve/Maintain Start: 10/01/17 16:00 Freq: DAILY Status: Active Target: Protocol: Activity Type Activity Date Activity User E-Sign Co-Sign Detail Recorded Client Recorded Date Recorded By Document 10/01/17 23:59 [id number] 10/02/17 00:01 [id number] 10/01/17 23:59 PMRU Outcome: Skin Skin Risk Level Medium Skin Orders Dressing Change Outcome/Goals Maintain/ Improve Skin Intergrity Free from Decubitus Progression Toward Outcome/Goals Progressing Medicine Note: Length of Stay: [1 week] Anticipated Discharge Destination: Home Tentative Discharge Date: [10/09/17] Discharged to: [home]
--- NOTE | 2017-10-02 15:34 | RAD ---
INDICATION: Bilateral lower extremity edema. Post RIGHT side hip replacement on Thursday. Post LEFT great saphenous vein harvest. COMPARISON: June 14, 2017 LEFT lower extremity ultrasound. TECHNIQUE: Mayers scale, color Doppler, and spectral analysis of the deep veins of the BILATERAL lower extremities. Vessel compression, phasicity, and augmentation assessed. REPORT: Magnitude of bilateral lower extremity edema most marked at the lower legs limits acoustic window. The RIGHT common femoral, great saphenous, profunda femoral, femoral, and popliteal veins are patent. Assessment of the paired peroneal and posterior tibial calf veins is limited due to soft tissue edema without gross evidence for thrombosis. The LEFT common femoral, profunda femoral, femoral, and popliteal veins are patent. Assessment of the paired peroneal and posterior tibial calf veins is limited due to soft tissue edema without gross evidence for thrombosis. IMPRESSION: No evidence for RIGHT or LEFT lower extremity DVT.
[2017-10-02] MEDS: Nystatin TOP POWDER* 15 GM BTL TOPICAL SCH ×2 (16:31→22:31)
--- NOTE | 2017-10-02 16:48 | RAD ---
HISTORY: Unsafe transfers, increasing pain COMPARISONS: September 29, 2017 VIEWS: 2, frontal and frontal oblique views of the right hip FINDINGS: BONE DENSITY: Normal. BONES: The patient is status post right hip arthroplasty. There is no hardware failure or osteolysis. JOINTS: The patient is status post right hip arthroplasty. ALIGNMENT: There is no dislocation. SOFT TISSUES: Unremarkable. OTHER FINDINGS: None. IMPRESSION: STATUS POST RIGHT HIP ARTHROPLASTY
[2017-10-02] MEDS ORDERED: Warfarin TAB(*) 3 MG PO SCH (17:00)
[2017-10-02] MEDS: Atorvastatin* 80 MG TAB PO SCH (17:14)
[2017-10-02] MEDS: Torsemide TAB* 20 MG PO SCH (17:30)
[2017-10-02] MEDS: Nicotine Patch Removal NOTE PATCH OFF SCH ×2 (19:04→19:05)
[2017-10-02] MEDS: Tamsulosin CAP* 0.4 MG PO SCH (20:22)
[2017-10-02] MEDS: Neomycin/Polymy/Dex OPTH.SUSP* MAXITROL 0.1% 5 ML LEFT EYE SCH (20:23)
[2017-10-02] MEDS: Albuterol/Ipratropium NEB.SOL* Albuterol 2.5 MG/Ipratropium 0.5 MG 3 ML INH PRN (21:13)
[2017-10-02] MEDS: traZODone TAB* 100 MG PO SCH (22:30)
[2017-10-03] MEDS: Omeprazole CAP* 20 MG PO SCH (05:35)
[2017-10-03 05:36] LABS: ABS Basophils 0.1 10^3/ul (0-0.2); ABS Eosinophils 1.2 10^3/ul (0-0.6); ABS Lymphocytes 0.7 10^3/ul (1.0-4.8); ABS Monocytes 0.9 10^3/ul (0-0.8); ABS Neutrophils 5.3 10^3/ul (1.5-7.7); ABS Nucleated RBC 0 10^3/ul; Eosinophil % 14.2 % (0-6); Hematocrit 29 % (42-52); Hemoglobin 9.7 g/dl (14.0-18.0); Mean Corpuscular HGB Conc 33 g/dl (31-36); Mean Corpuscular Hemoglobin 32 pg (27-31); Mean Corpuscular Volume 97 fL (80-94); Mean Platelet Volume 7.6 um3 (7.4-10.4); Nucleated Red Blood Cells % 0; Platelet Count 164 10^3/ul (150-450); Red Blood Count 3.01 10^6/ul (4.0-5.4); Red Cell Distribution Width 17 % (10.5-15); White Blood Count 8.1 10^3/ul (3.5-10.8)
[2017-10-03] MEDS: oxyCODONE/Acetamin 5/325 MG* TAB PO PRN ×3 (05:38→20:57)
[2017-10-03 05:44] LABS: INR 1.06 (0.77-1.02)
[2017-10-03] MEDS: Insulin LISPRO* 1 UNITS UNIT SUBCUT SCH ×4 (07:29→21:02)
[2017-10-03] MEDS: metFORMIN* 500 MG TAB PO SCH ×2 (08:11→17:19)
[2017-10-03] MEDS: Nicotine PATCH 21 MG/24 HR* PATCH TRANSDERM SCH (08:14)
[2017-10-03] MEDS: Gabapentin CAP(*) 300 MG PO SCH ×2 (08:50→20:59)
[2017-10-03] MEDS: Docusate CAP* 100 MG PO SCH ×2 (08:51→20:58)
[2017-10-03] MEDS: Carvedilol TAB* 6.25 MG PO SCH ×2 (08:51→21:00)
[2017-10-03] MEDS: Magnesium Oxide TAB* 400 MG PO SCH (08:52)
[2017-10-03] MEDS: Amiodarone TAB* 200 MG PO SCH (08:52)
[2017-10-03] MEDS: Tiotropium CAP.INH* CAP.INH/18 MCG (USE ORDER SET !) INH SCH (08:53)
[2017-10-03] MEDS: Potassium Chlor TAB* 20 MEQ TAB.ER PO SCH (08:53)
[2017-10-03] MEDS: Artificial Tears* 15 ML BTL LEFT EYE SCH ×4 (08:55→21:01)
[2017-10-03] MEDS: Nystatin TOP POWDER* 15 GM BTL TOPICAL SCH ×3 (08:55→21:24)
[2017-10-03] MEDS: Neomycin/Polymy/Dex OPTH.SUSP* MAXITROL 0.1% 5 ML LEFT EYE SCH ×2 (08:56→20:55)
[2017-10-03] MEDS: Albuterol/Ipratropium NEB.SOL* Albuterol 2.5 MG/Ipratropium 0.5 MG 3 ML INH PRN ×2 (09:41→21:56)
--- NOTE | 2017-10-03 10:31 | PN ---
Progress Note Date of Service: 10/03/17 Note: AHSAN MOORE JR was visited. Nursing and therapy notes read and reviewed. No chest pain, shortness of breath or abdominal pain. Yesterday he was assisted with a transfer and had more pain in his right leg and hip. He is better now. Uses lidocaine patch on his right thigh at night at home and he would like to use also here. Confirmed he uses 40mg torsemide at home daily also. He wants to be able to eat more carbs here. He eats more at home and says his FS are usually 120. He has been "sneaking" soda here. Current Medications: Active Medications Generic Name Dose Route Start Last Admin Trade Name Freq PRN Reason Stop Dose Admin Acetaminophen 650 mg 10/01/17 10:30 Tylenol Tab* PO Q6H PRN FEVER/PAIN Albuterol 2 puff 10/01/17 12:15 Ventolin Hfa Inhaler* INH Q6H PRN SOB/WHEEZING Albuterol/Ipratropium 1 neb 10/01/17 16:43 10/03/17 09:41 Duoneb (Albuterol 2.5 Mg/Ipratropium 0.5 Mg) INH 1 neb Q6H PRN Administration SOB/WHEEZING Amiodarone HCl 200 mg 10/02/17 09:00 10/03/17 08:52 Cordarone Tab* PO 200 mg DAILY ALE[facility] Administration Atorvastatin Calcium 80 mg 10/01/17 17:00 10/02/17 17:14 Lipitor* PO 80 mg 1700 ALE[facility] Administration Carvedilol 12.5 mg 10/01/17 21:00 10/03/17 08:51 Coreg Tab* PO 12.5 mg BID ALEXX Administration Device 1 each 10/01/17 17:00 Tiotropium Inhaler Device* .SEE ORDER .USE w/ SPIRIVA CAPS ALEXX Dextrose 12.5 gm 10/01/17 10:36 D50w Syringe 50 Ml* IV PUSH .FOR FS < 60 - SS PRN FS < 60 Docusate Sodium 100 mg 10/01/17 21:00 10/03/17 08:51 Colace Cap* PO 100 mg BID ALEXX Administration Enoxaparin Sodium 40 mg 10/01/17 12:00 10/02/17 12:23 Lovenox(*) SUBCUT 40 mg Q24H ALEXX Administration Gabapentin 900 mg 10/01/17 21:00 10/03/17 08:50 Neurontin Cap(*) PO 900 mg BID ALEXX Administration Insulin Human Lispro 0 - 10 units 10/01/17 11:30 10/03/17 07:29 Humalog* SUBCUT Not Given ACHS [facility] Protocol Magnesium Hydroxide 30 ml 10/01/17 10:30 10/02/17 23:35 Milk Of Magnesia Liq* PO 30 ml Q6H PRN Administration CONSTIPATION Magnesium Oxide 400 mg 10/02/17 09:00 10/03/17 08:52 Magox 400 Tab* PO 400 mg DAILY ALEXX Administration Metformin HCl 500 mg 10/01/17 17:00 10/03/17 08:11 Glucophage* PO 500 mg 0800,1700 A[facility] Administration Methocarbamol 750 mg 10/01/17 12:14 Robaxin Tab* PO TID PRN SPASMS Neomycin/Polymyxin/Dexamethasone 1 drop 10/02/17 21:00 10/03/17 08:56 Maxitrol Opth Susp 0.1%* LEFT EYE 1 drop BID ALEXX Administration Nicotine 1 patch 10/02/17 08:00 10/03/17 08:14 Nicotine Patch 21 Mg/24 Hr* TRANSDERM 1 patch DAILY@0800 [facility] Administration Nystatin 1 applic 10/02/17 14:00 10/03/17 08:55 Nystatin Top Powder* TOPICAL 1 applic TID ALEXX Administration Omeprazole 20 mg 10/02/17 06:00 10/03/17 05:35 Prilosec Cap* PO 20 mg DAILY@0600 [facility] Administration Oxycodone HCl 10 mg 10/01/17 10:37 10/02/17 12:23 Roxycodone Tab* PO 10 mg Q4H PRN Administration PAIN - UNCONTROLLED Oxycodone/Acetaminophen 2 tab 10/01/17 10:37 10/03/17 05:38 Percocet 5/325 Tab* PO 2 tab Q4H PRN Administration PAIN - SEVERE Oxycodone/Acetaminophen 1 tab 10/01/17 10:39 Percocet 5/325 Tab* PO Q4H PRN PAIN - MODERATE TO SEVERE Pharmacy Profile Note 1 note 10/01/17 20:00 10/02/17 19:05 Nicotine Patch Removal Note* PATCH OFF Not Given 1999 [facility] Polyvinyl Alcohol 1 drop 10/01/17 13:00 10/03/17 08:55 Polyvinyl Alcohol 1.4% Opth* LEFT EYE 1 drop QID ALEXX Administration Potassium Chloride 20 meq 10/02/17 09:00 10/03/17 08:53 Klor Con Er Tab* PO 20 meq DAILY ALEXX Administration Senna 2 tab 10/01/17 10:30 Senokot Tab* PO BEDTIME PRN CONSTIPATION Tamsulosin HCl 0.4 mg 10/01/17 21:00 10/02/17 20:22 Flomax Cap* PO 0.4 mg BEDTIME ALEXX Administration Tiotropium [place] 1 cap 10/02/17 09:00 10/03/17 08:53 Spiriva Cap.Inh* INH 1 cap DAILY ALEXX Administration Torsemide 40 mg 10/01/17 18:00 10/02/17 17:30 Demadex* PO 40 mg 1800 [facility] Administration Trazodone HCl 100 mg 10/01/17 21:00 10/02/17 22:30 Desyrel Tab* PO 100 mg BEDTIME ALEXX Administration Warfarin Sodium 3 mg 10/02/17 17:00 10/02/17 17:30 Coumadin Tab(*) PO 3 mg DAILY@1700 [facility] Administration Protocol Vital Signs: Vital Signs Temp Pulse Resp BP Pulse Ox 98.0 F 68 17 112/55 94 10/03/17 05:35 10/03/17 05:35 10/03/17 08:50 10/03/17 05:35 10/03/17 07:43 Lab Results: Laboratory Results - last 24 hr 10/02/17 10/02/17 10/02/17 09:51 12:09 16:50 WBC RBC Hgb Hct MCV MCH MCHC RDW Plt Count MPV Neut % (Auto) Lymph % (Auto) [place] % (Auto) Eos % (Auto) Baso % (Auto) Absolute Neuts (auto) Absolute Lymphs (auto) Absolute Monos (auto) Absolute Eos (auto) Absolute Basos (auto) Absolute Nucleated RBC Nucleated RBC % INR (Anticoag Therapy) 1.14 H POC Glucose (mg/dL) 135 H 128 H 10/02/17 10/03/17 10/03/17 20:26 05:27 05:27 WBC 8.1 RBC 3.01 L Hgb 9.7 L Hct 29 L MCV 97 H MCH 32 H MCHC 33 RDW 17 H Plt Count 164 MPV 7.6 Neut % (Auto) 65.5 Lymph % (Auto) 9.0 L [place] % (Auto) 10.5 H Eos % (Auto) 14.2 H Baso % (Auto) 0.8 Absolute Neuts (auto) 5.3 Absolute Lymphs (auto) 0.7 L Absolute Monos (auto) 0.9 H Absolute Eos (auto) 1.2 H Absolute Basos (auto) 0.1 Absolute Nucleated RBC 0 Nucleated RBC % 0 INR (Anticoag Therapy) 1.06 H POC Glucose (mg/dL) 165 H 10/03/17 07:27 WBC RBC Hgb Hct MCV MCH MCHC RDW Plt Count MPV Neut % (Auto) Lymph % (Auto) [place] % (Auto) Eos % (Auto) Baso % (Auto) Absolute Neuts (auto) Absolute Lymphs (auto) Absolute Monos (auto) Absolute Eos (auto) Absolute Basos (auto) Absolute Nucleated RBC Nucleated RBC % INR (Anticoag Therapy) POC Glucose (mg/dL) 117 H Exam: GEN: no acute distress. Alert and appropriate. LUNGS: scattered expiratory wheezes bilaterally CV: regular rate and rhythm ABD: + bowel sounds, soft, non-tender, non-distended EXT: Left greater than right 3+ pitting edema. SKIN: right hip incision c/d/i. skin glued. X-ray right hip 10/02/17 shows no fracture or dislocation in post op total hip replacement. Bilateral lower extremity venous dopplers on 10/02/17 show no DVT. Assessment/Plan: 67yo man with h/o small cell lung cancer, bladder cancer, COPD, CAD and CHF who is s/p right total hip replacement. #Right total hip replacement: f/u with Dr. Cazares. TTWB RLE. #Acute post-op anemia: H/H is stable. #Leukocytosis: resolved without intervention. #Bilateral lower extremity edema: Bilateral lower extremity venous dopplers on show no DVT. Continue diuretic. #DVT prophyllaxis: lovenox bridge to coumadin. CESAR hose. Increase coumadin to 5mg. INR daily until therapeutic. D/C lovenox when INR therapeutic. #COPD: spiriva and duoneb prn. Advised nursing use neb now. Oxygen at night prn. Caution not to overtreat. #Diabetes mellitus: on metformin and sliding scale insulin. Monitor FS. Will have coal picker meet with him. #CAD/CHF: Continue current meds and lipitor. Was on plavix and ASA pre-op. Restart when off coumadin per Dr. Cazares. #Smoker: nicotine replacement. #Advanced directives: full code. #Estimated LOS: anticipate d/c on 10/09. 10/03/17 10:39
[2017-10-03] MEDS: Enoxaparin(*) 40 MG/0.4 ML SYR SUBCUT SCH (12:05)
[2017-10-03] MEDS ORDERED: Warfarin TAB(*) 3 MG PO SCH (17:00)
[2017-10-03] MEDS: Torsemide TAB* 20 MG PO SCH (17:19)
[2017-10-03] MEDS: Atorvastatin* 80 MG TAB PO SCH (17:19)
[2017-10-03] MEDS: Warfarin TAB(*) 5 MG PO SCH (17:20)
[2017-10-03] MEDS: Tamsulosin CAP* 0.4 MG PO SCH (20:58)
[2017-10-03] MEDS: Nicotine Patch Removal NOTE PATCH OFF SCH (21:03)
[2017-10-03] MEDS: Lidocaine PATCH 5%* 1 PATCH TRANSDERM SCH (21:23)
[2017-10-03] MEDS: traZODone TAB* 100 MG PO SCH (22:19)
[2017-10-04] MEDS: oxyCODONE/Acetamin 5/325 MG* TAB PO PRN ×4 (04:46→18:25)
[2017-10-04] MEDS: Omeprazole CAP* 20 MG PO SCH (05:50)
[2017-10-04 06:14] LABS: INR 1.13 (0.77-1.02)
[2017-10-04] MEDS: Gabapentin CAP(*) 300 MG PO SCH ×2 (08:50→21:07)
[2017-10-04] MEDS: Amiodarone TAB* 200 MG PO SCH (08:51)
[2017-10-04] MEDS: Magnesium Oxide TAB* 400 MG PO SCH (08:51)
[2017-10-04] MEDS: Carvedilol TAB* 6.25 MG PO SCH ×2 (08:51→21:08)
[2017-10-04] MEDS: metFORMIN* 500 MG TAB PO SCH ×2 (08:51→16:52)
[2017-10-04] MEDS: Insulin LISPRO* 1 UNITS UNIT SUBCUT SCH ×4 (08:51→21:00)
[2017-10-04] MEDS: Potassium Chlor TAB* 20 MEQ TAB.ER PO SCH (08:51)
[2017-10-04] MEDS: Tiotropium CAP.INH* CAP.INH/18 MCG (USE ORDER SET !) INH SCH (08:52)
[2017-10-04] MEDS: Nicotine PATCH 21 MG/24 HR* PATCH TRANSDERM SCH (08:52)
[2017-10-04] MEDS: Artificial Tears* 15 ML BTL LEFT EYE SCH ×4 (08:59→21:03)
[2017-10-04] MEDS: Lidocaine Patch REMOVE* 1 NOTE MISC PATCH OFF SCH (08:59)
[2017-10-04] MEDS: Neomycin/Polymy/Dex OPTH.SUSP* MAXITROL 0.1% 5 ML LEFT EYE SCH ×2 (08:59→21:08)
[2017-10-04] MEDS: Docusate CAP* 100 MG PO SCH ×2 (08:59→21:07)
[2017-10-04] MEDS: Nystatin TOP POWDER* 15 GM BTL TOPICAL SCH ×4 (09:01→21:08)
--- NOTE | 2017-10-04 10:45 | PN ---
Progress Note Date of Service: 10/04/17 Note: AHSAN MOORE JR was visited. Nursing notes read and reviewed. No chest pain, shortness of breath or abdominal pain. No new concerns overnight. He has been sleeping in the recliner, but may try to get in bed today. Current Medications: Active Medications Generic Name Dose Route Start Last Admin Trade Name Freq PRN Reason Stop Dose Admin Acetaminophen 650 mg 10/01/17 10:30 Tylenol Tab* PO Q6H PRN FEVER/PAIN Albuterol 2 puff 10/01/17 12:15 Ventolin Hfa Inhaler* INH Q6H PRN SOB/WHEEZING Albuterol/Ipratropium 1 neb 10/01/17 16:43 10/03/17 21:56 Duoneb (Albuterol 2.5 Mg/Ipratropium 0.5 Mg) INH 1 neb Q6H PRN Administration SOB/WHEEZING Amiodarone HCl 200 mg 10/02/17 09:00 10/04/17 08:51 Cordarone Tab* PO 200 mg DAILY ALEXX Administration Atorvastatin Calcium 80 mg 10/01/17 17:00 10/03/17 17:19 Lipitor* PO 80 mg 1700 ALEXX Administration Carvedilol 12.5 mg 10/01/17 21:00 10/04/17 08:51 Coreg Tab* PO 12.5 mg BID ALEXX Administration Device 1 each 10/01/17 17:00 Tiotropium Inhaler Device* .SEE ORDER .USE w/ SPIRIVA CAPS ALEXX Dextrose 12.5 gm 10/01/17 10:36 D50w Syringe 50 Ml* IV PUSH .FOR FS < 60 - SS PRN FS < 60 Docusate Sodium 100 mg 10/01/17 21:00 10/04/17 08:59 Colace Cap* PO 100 mg BID ALEXX Administration Enoxaparin Sodium 40 mg 10/01/17 12:00 10/03/17 12:05 Lovenox(*) SUBCUT 40 mg Q24H ALEXX Administration Gabapentin 900 mg 10/01/17 21:00 10/04/17 08:50 Neurontin Cap(*) PO 900 mg BID ALEXX Administration Insulin Human Lispro 0 - 10 units 10/01/17 11:30 10/04/17 08:51 Humalog* SUBCUT 1 units ACHS ALEXX Administration Protocol Lidocaine 1 patch 10/03/17 21:00 10/03/17 21:23 Lidoderm 5% Patch* TRANSDERM 1 patch BEDTIME ALEXX Administration Magnesium Hydroxide 30 ml 10/01/17 10:30 10/02/17 23:35 Milk Of Magnesia Liq* PO 30 ml Q6H PRN Administration CONSTIPATION Magnesium Oxide 400 mg 10/02/17 09:00 10/04/17 08:51 Magox 400 Tab* PO 400 mg DAILY ALEXX Administration Metformin HCl 500 mg 10/01/17 17:00 10/04/17 08:51 Glucophage* PO 500 mg 0800,1700 [facility] Administration Methocarbamol 750 mg 10/01/17 12:14 Robaxin Tab* PO TID PRN SPASMS Neomycin/Polymyxin/Dexamethasone 1 drop 10/02/17 21:00 10/04/17 08:59 Maxitrol Opth Susp 0.1%* LEFT EYE 1 drop BID ALEXX Administration Nicotine 1 patch 10/02/17 08:00 10/04/17 08:52 Nicotine Patch 21 Mg/24 Hr* TRANSDERM 1 patch DAILY@0800 [facility] Administration Nystatin 1 applic 10/02/17 14:00 10/04/17 09:01 Nystatin Top Powder* TOPICAL Not Given TID [facility] Omeprazole 20 mg 10/02/17 06:00 10/04/17 05:50 Prilosec Cap* PO 20 mg DAILY@0600 [facility] Administration Oxycodone HCl 10 mg 10/01/17 10:37 10/02/17 12:23 Roxycodone Tab* PO 10 mg Q4H PRN Administration PAIN - UNCONTROLLED Oxycodone/Acetaminophen 2 tab 10/01/17 10:37 10/04/17 08:58 Percocet 5/325 Tab* PO 2 tab Q4H PRN Administration PAIN - SEVERE Oxycodone/Acetaminophen 1 tab 10/01/17 10:39 Percocet 5/325 Tab* PO Q4H PRN PAIN - MODERATE TO SEVERE Pharmacy Profile Note 1 note 10/01/17 20:00 10/03/17 21:03 Nicotine Patch Removal Note* PATCH OFF Not Given [facility] Pharmacy Profile Note 1 note 10/04/17 09:00 10/04/17 08:59 Lidocaine Patch Remove* PATCH OFF 1 note 0900 [facility] Administration Polyvinyl Alcohol 1 drop 10/01/17 13:00 10/04/17 08:59 Polyvinyl Alcohol 1.4% Opth* LEFT EYE 1 drop QID ALEXX Administration Potassium Chloride 20 meq 10/02/17 09:00 10/04/17 08:51 Klor Con Er Tab* PO 20 meq DAILY ALEXX Administration Senna 2 tab 10/01/17 10:30 Senokot Tab* PO BEDTIME PRN CONSTIPATION Tamsulosin HCl 0.4 mg 10/01/17 21:00 10/03/17 20:58 Flomax Cap* PO 0.4 mg BEDTIME ALEXX Administration Tiotropium [place] 1 cap 10/02/17 09:00 10/04/17 08:52 Spiriva Cap.Inh* INH 1 cap DAILY ALEXX Administration Torsemide 40 mg 10/01/17 18:00 10/03/17 17:19 Demadex* PO 40 mg 1800 ALEXX Administration Trazodone HCl 100 mg 10/01/17 21:00 10/03/17 22:19 Desyrel Tab* PO 100 mg BEDTIME ALEXX Administration Warfarin Sodium 5 mg 10/03/17 17:06 10/03/17 17:20 Coumadin Tab(*) PO 5 mg DAILY@1700 ALEXX Administration Protocol Vital Signs: Vital Signs Temp Pulse Resp BP Pulse Ox 99.1 F 66 20 103/55 100 10/04/17 04:51 10/04/17 04:51 10/04/17 09:00 10/04/17 04:51 10/04/17 08:00 Lab Results: Laboratory Results - last 24 hr 10/03/17 10/03/17 10/03/17 12:05 16:29 20:29 INR (Anticoag Therapy) POC Glucose (mg/dL) 132 H 130 H 140 H 10/04/17 05:49 INR (Anticoag Therapy) 1.13 H POC Glucose (mg/dL) Exam: GEN: no acute distress. Alert and appropriate. LUNGS: clear bilaterally CV: regular rate and rhythm ABD: + bowel sounds, soft, non-tender, non-distended EXT: Left greater than right 3+ pitting edema. X-ray right hip 10/02/17 shows no fracture or dislocation in post op total hip replacement. Bilateral lower extremity venous dopplers on 10/02/17 show no DVT. Assessment/Plan: 67yo man with h/o small cell lung cancer, bladder cancer, COPD, CAD and CHF who is s/p right total hip replacement. #Right total hip replacement: f/u with Dr. Cazares. TTWB RLE. continue PT/OT. #Acute post-op anemia: H/H is stable. #Leukocytosis: resolved without intervention. #Bilateral lower extremity edema: Bilateral lower extremity venous dopplers on show no DVT. Continue diuretic. #DVT prophyllaxis: lovenox bridge to coumadin. CESAR shannon. Coumadin 5mg since . INR daily until therapeutic. D/C lovenox when INR therapeutic. #COPD: spiriva and duoneb prn. Oxygen at night prn. Caution not to over treat. #Diabetes mellitus: on metformin and sliding scale insulin. Monitor FS. Consistent carb diet. #CAD/CHF: Continue current meds and lipitor. Was on plavix and ASA pre-op. Restart when off coumadin per Dr. Cazares. #Smoker: nicotine replacement. #Advanced directives: full code. #Estimated LOS: anticipate d/c on 10/09. 10/04/17 10:43
[2017-10-04] MEDS: Enoxaparin(*) 40 MG/0.4 ML SYR SUBCUT SCH (13:21)
[2017-10-04] MEDS: Atorvastatin* 80 MG TAB PO SCH (16:52)
[2017-10-04] MEDS: Warfarin TAB(*) 5 MG PO SCH (16:52)
[2017-10-04] MEDS: Torsemide TAB* 20 MG PO SCH (18:18)
[2017-10-04] MEDS: Magnesium Hydroxide LIQ* 30 ML UDC PO PRN (18:21)
[2017-10-04] MEDS: Nicotine Patch Removal NOTE PATCH OFF SCH (19:37)
[2017-10-04] MEDS: Lidocaine PATCH 5%* 1 PATCH TRANSDERM SCH (21:01)
[2017-10-04] MEDS: oxyCODONE TAB* 5 MG TAB PO PRN (21:02)
[2017-10-04] MEDS: Tamsulosin CAP* 0.4 MG PO SCH (21:07)
[2017-10-04] MEDS: Albuterol/Ipratropium NEB.SOL* Albuterol 2.5 MG/Ipratropium 0.5 MG 3 ML INH PRN (21:57)
[2017-10-04] MEDS: traZODone TAB* 100 MG PO SCH (23:06)
[2017-10-05] MEDS: oxyCODONE/Acetamin 5/325 MG* TAB PO PRN ×5 (00:45→19:53)
[2017-10-05] MEDS: Omeprazole CAP* 20 MG PO SCH (05:36)
[2017-10-05 06:21] LABS: INR 1.19 (0.77-1.02)
[2017-10-05] MEDS: Insulin LISPRO* 1 UNITS UNIT SUBCUT SCH ×4 (07:46→21:41)
[2017-10-05] MEDS: metFORMIN* 500 MG TAB PO SCH ×2 (08:18→17:12)
[2017-10-05] MEDS: Nicotine PATCH 21 MG/24 HR* PATCH TRANSDERM SCH (08:18)
[2017-10-05] MEDS: Amiodarone TAB* 200 MG PO SCH (08:18)
[2017-10-05] MEDS: Carvedilol TAB* 6.25 MG PO SCH ×2 (08:19→19:54)
[2017-10-05] MEDS: Artificial Tears* 15 ML BTL LEFT EYE SCH ×4 (08:19→19:58)
[2017-10-05] MEDS: Gabapentin CAP(*) 300 MG PO SCH ×2 (08:20→19:54)
[2017-10-05] MEDS: Docusate CAP* 100 MG PO SCH ×2 (08:20→19:54)
[2017-10-05] MEDS: Magnesium Oxide TAB* 400 MG PO SCH (08:21)
[2017-10-05] MEDS: Neomycin/Polymy/Dex OPTH.SUSP* MAXITROL 0.1% 5 ML LEFT EYE SCH ×2 (08:22→19:58)
[2017-10-05] MEDS: Potassium Chlor TAB* 20 MEQ TAB.ER PO SCH (08:22)
[2017-10-05] MEDS: Tiotropium CAP.INH* CAP.INH/18 MCG (USE ORDER SET !) INH SCH (08:22)
[2017-10-05] MEDS: oxyCODONE TAB* 5 MG TAB PO PRN (08:26)
[2017-10-05] MEDS: Lidocaine Patch REMOVE* 1 NOTE MISC PATCH OFF SCH (08:41)
[2017-10-05] MEDS: Nystatin TOP POWDER* 15 GM BTL TOPICAL SCH ×3 (10:07→21:48)
[2017-10-05] MEDS: Enoxaparin(*) 40 MG/0.4 ML SYR SUBCUT SCH (15:04)
[2017-10-05] MEDS ORDERED: LORazepam TAB(*) 0.5 MG PO ONE (15:28)
--- NOTE | 2017-10-05 16:14 | PN ---
Progress Note Date of Service: 10/05/17 Note: AHSAN MOORE JR was visited. Therapy notes read and reviewed. He is in good spirits and feels like he is making progress. He seems to have some dietary lapses. Breathing easier than last week. Current Medications: Active Medications Generic Name Dose Route Start Last Admin Trade Name Freq PRN Reason Stop Dose Admin Acetaminophen 650 mg 10/01/17 10:30 Tylenol Tab* PO Q6H PRN FEVER/PAIN Albuterol 2 puff 10/01/17 12:15 Ventolin Hfa Inhaler* INH Q6H PRN SOB/WHEEZING Albuterol/Ipratropium 1 neb 10/01/17 16:43 10/04/17 21:57 Duoneb (Albuterol 2.5 Mg/Ipratropium 0.5 Mg) INH 1 neb Q6H PRN Administration SOB/WHEEZING Amiodarone HCl 200 mg 10/02/17 09:00 10/05/17 08:18 Cordarone Tab* PO 200 mg DAILY [facility] Administration Atorvastatin Calcium 80 mg 10/01/17 17:00 10/04/17 16:52 Lipitor* PO 80 mg 1700 [facility] Administration Carvedilol 12.5 mg 10/01/17 21:00 10/05/17 08:19 Coreg Tab* PO 12.5 mg BID [facility] Administration Device 1 each 10/01/17 17:00 Tiotropium Inhaler Device* .SEE ORDER .USE w/ SPIRIVA CAPS [facility] Dextrose 12.5 gm 10/01/17 10:36 D50w Syringe 50 Ml* IV PUSH .FOR FS < 60 - SS PRN FS < 60 Docusate Sodium 100 mg 10/01/17 21:00 10/05/17 08:20 Colace Cap* PO 100 mg BID [facility] Administration Enoxaparin Sodium 40 mg 10/01/17 12:00 10/05/17 15:04 Lovenox(*) SUBCUT 40 mg Q24H [facility] Administration Gabapentin 900 mg 10/01/17 21:00 10/05/17 08:20 Neurontin Cap(*) PO 900 mg BID [facility] Administration Insulin Human Lispro 0 - 10 units 10/01/17 11:30 10/05/17 14:49 Humalog* SUBCUT Not Given ACHS [facility] Protocol Lidocaine 1 patch 10/03/17 21:00 10/04/17 21:01 Lidoderm 5% Patch* TRANSDERM 1 patch BEDTIME [facility] Administration Magnesium Hydroxide 30 ml 10/01/17 10:30 10/04/17 18:21 Milk Of Magnesia Liq* PO 30 ml Q6H PRN Administration CONSTIPATION Magnesium Oxide 400 mg 10/02/17 09:00 10/05/17 08:21 Magox 400 Tab* PO 400 mg DAILY [facility] Administration Metformin HCl 500 mg 10/01/17 17:00 10/05/17 08:18 Glucophage* PO 500 mg 0800,1700 [facility] Administration Methocarbamol 750 mg 10/01/17 12:14 Robaxin Tab* PO TID PRN SPASMS Neomycin/Polymyxin/Dexamethasone 1 drop 10/02/17 21:00 10/05/17 08:22 Maxitrol Opth Susp 0.1%* LEFT EYE 1 drop BID [facility] Administration Nicotine 1 patch 10/02/17 08:00 10/05/17 08:18 Nicotine Patch 21 Mg/24 Hr* TRANSDERM 1 patch DAILY@0800 [facility] Administration Nystatin 1 applic 10/02/17 14:00 10/05/17 15:14 Nystatin Top Powder* TOPICAL Not Given TID [facility] Omeprazole 20 mg 10/02/17 06:00 10/05/17 05:36 Prilosec Cap* PO 20 mg DAILY@0600 [facility] Administration Oxycodone HCl 10 mg 10/01/17 10:37 10/05/17 08:26 Roxycodone Tab* PO 10 mg Q4H PRN Administration PAIN - UNCONTROLLED Oxycodone/Acetaminophen 2 tab 10/01/17 10:37 10/05/17 15:03 Percocet 5/325 Tab* PO 2 tab Q4H PRN Administration PAIN - SEVERE Oxycodone/Acetaminophen 1 tab 10/01/17 10:39 Percocet 5/325 Tab* PO Q4H PRN PAIN - MODERATE TO SEVERE Pharmacy Profile Note 1 note 10/01/17 20:00 10/04/17 19:37 Nicotine Patch Removal Note* PATCH OFF Not Given 1999 [facility] Pharmacy Profile Note 1 note 10/04/17 09:00 10/05/17 08:41 Lidocaine Patch Remove* PATCH OFF 1 note 0900 [facility] Administration Polyvinyl Alcohol 1 drop 10/01/17 13:00 10/05/17 15:13 Polyvinyl Alcohol 1.4% Opth* LEFT EYE Not Given QID [facility] Potassium Chloride 20 meq 10/02/17 09:00 10/05/17 08:22 Klor Con Er Tab* PO 20 meq DAILY [facility] Administration Senna 2 tab 10/01/17 10:30 Senokot Tab* PO BEDTIME PRN CONSTIPATION Tamsulosin HCl 0.4 mg 10/01/17 21:00 10/04/17 21:07 Flomax Cap* PO 0.4 mg BEDTIME [facility] Administration Tiotropium [place] 1 cap 10/02/17 09:00 10/05/17 08:22 Spiriva Cap.Inh* INH 1 cap DAILY [facility] Administration Torsemide 40 mg 10/01/17 18:00 10/04/17 18:18 Demadex* PO 40 mg 1800 [facility] Administration Trazodone HCl 100 mg 10/01/17 21:00 10/04/17 23:06 Desyrel Tab* PO 100 mg BEDTIME [facility] Administration Warfarin Sodium 5 mg 10/05/17 17:00 Coumadin Tab(*) PO DAILY@1700 [facility] Protocol Warfarin Sodium 2 mg 10/05/17 17:00 Coumadin Tab(*) PO DAILY@1700 [facility] Vital Signs: Vital Signs Temp Pulse Resp BP Pulse Ox 98.1 F 76 16 120/60 93 10/05/17 15:50 10/05/17 15:50 10/05/17 15:50 10/05/17 15:50 10/05/17 16:00 Lab Results: Laboratory Results - last 24 hr 10/04/17 10/04/17 10/05/17 16:34 20:14 05:54 INR (Anticoag Therapy) 1.19 H POC Glucose (mg/dL) 141 H 179 H Exam: LUNGS: occasional wheeze CV: regular rate and rhythm ABD: + bowel sounds, soft, non-tender, non-distended EXT: Left greater than right 3+ pitting edema. Assessment/Plan: 1. Right total hip replacement: f/u with Dr. Cazares. TTWB RLE. continue PT/OT. 2. Acute post-op anemia: H/H is stable. 3. Bilateral lower extremity edema: Bilateral lower extremity venous dopplers on 10/02/17 show no DVT. Continue diuretic. 4. DVT prophylaxis: lovenox bridge to coumadin. CESAR hose. Coumadin 5mg since 10/03. INR daily until therapeutic. D/C lovenox when INR therapeutic. 5. COPD: spiriva and duoneb prn. Oxygen at night prn. Caution not to over treat. 6. Diabetes mellitus: on metformin and sliding scale insulin. Monitor FS. Consistent carb diet. 7. CAD/CHF: Continue current meds and lipitor. Was on plavix and ASA pre-op. Restart when off coumadin per Dr. Cazares. 8. Smoker: nicotine replacement. 9. Advanced directives: full code. 10. Estimated LOS: anticipate d/c on 10/09. 10/05/17 16:15
[2017-10-05] MEDS: Atorvastatin* 80 MG TAB PO SCH (17:12)
[2017-10-05] MEDS: Warfarin TAB(*) 5 MG PO SCH (17:12)
[2017-10-05] MEDS: Warfarin TAB(*) 2 MG PO SCH (17:12)
[2017-10-05] MEDS: Torsemide TAB* 20 MG PO SCH (18:29)
[2017-10-05] MEDS: Tamsulosin CAP* 0.4 MG PO SCH (19:54)
[2017-10-05] MEDS: Lidocaine PATCH 5%* 1 PATCH TRANSDERM SCH (19:55)
[2017-10-05] MEDS: Nicotine Patch Removal NOTE PATCH OFF SCH (19:59)
[2017-10-05] MEDS: Albuterol/Ipratropium NEB.SOL* Albuterol 2.5 MG/Ipratropium 0.5 MG 3 ML INH PRN (21:44)
[2017-10-05] MEDS: traZODone TAB* 100 MG PO SCH (22:55)
[2017-10-06] MEDS: traZODone TAB* 100 MG PO SCH ×2 (00:04→21:30)
[2017-10-06] MEDS: oxyCODONE/Acetamin 5/325 MG* TAB PO PRN ×4 (00:09→21:30)
[2017-10-06] MEDS: oxyCODONE TAB* 5 MG TAB PO PRN ×2 (02:39→19:58)
[2017-10-06] MEDS: Omeprazole CAP* 20 MG PO SCH (06:07)
[2017-10-06 06:35] LABS: INR 1.27 (0.77-1.02)
[2017-10-06] MEDS: Insulin LISPRO* 1 UNITS UNIT SUBCUT SCH ×4 (08:17→21:31)
[2017-10-06] MEDS: Nicotine PATCH 21 MG/24 HR* PATCH TRANSDERM SCH (08:22)
[2017-10-06] MEDS: metFORMIN* 500 MG TAB PO SCH ×2 (08:23→17:14)
[2017-10-06] MEDS: Docusate CAP* 100 MG PO SCH ×2 (08:23→19:56)
[2017-10-06] MEDS: Potassium Chlor TAB* 20 MEQ TAB.ER PO SCH (08:23)
[2017-10-06] MEDS: Magnesium Oxide TAB* 400 MG PO SCH (08:24)
[2017-10-06] MEDS: Gabapentin CAP(*) 300 MG PO SCH ×2 (08:24→19:55)
[2017-10-06] MEDS: Tiotropium CAP.INH* CAP.INH/18 MCG (USE ORDER SET !) INH SCH (08:24)
[2017-10-06] MEDS: Amiodarone TAB* 200 MG PO SCH (08:24)
[2017-10-06] MEDS: Neomycin/Polymy/Dex OPTH.SUSP* MAXITROL 0.1% 5 ML LEFT EYE SCH ×2 (08:25→21:31)
[2017-10-06] MEDS: Artificial Tears* 15 ML BTL LEFT EYE SCH ×4 (08:25→21:33)
[2017-10-06] MEDS: Nystatin TOP POWDER* 15 GM BTL TOPICAL SCH ×4 (08:26→20:04)
[2017-10-06] MEDS: Lidocaine Patch REMOVE* 1 NOTE MISC PATCH OFF SCH (08:26)
[2017-10-06] MEDS: Carvedilol TAB* 6.25 MG PO SCH ×2 (08:27→19:56)
--- NOTE | 2017-10-06 12:42 | PMRUTEAM ---
PMRU: Team Meeting Current Status: Nursing: Current Status Skin Deviations [Right Iliac Abrasion Crest] Skin Deviations [Right Elbow] Other Skin Deviations [Back] Previous Access Point Skin Deviations [Right Hip] Incision Skin Deviations [Right Medial Other Heel] Skin Deviation Description [ Skin tear from tape post surgical. Using barrier Right Iliac Crest] cream and wound is healing well. scabbed over Skin Deviation Description [ healed, lotion applied Right Elbow] Skin Deviation Description [ black heads - multiple Back] Skin Deviation Description [ drsg in place Right Hip] Skin Deviation Description [ scab Right Medial Heel] Physical Therapy: Current Status Bed Mobility Assistance Mod Assist Transfer Moblility Assistance Supervision Transfer/Bed Mobility Rolling Walker Recommended Devices Ambulation Assistance Supervision Ambulation Assistive Devices Rolling Walker Number of Feet Patient 100 Ambulated Manual Wheelchair Control/ Bilateral UE's Technique Wheelchair Propulsion Ability Standby Assistance Wheelchair Distance (ft) 130' Occupational Therapy: Current Status Upper Body Dressing Supervision Lower Body Dressing Supervision Bathing Contact Guard Assist,Min Assist Toileting Supervision Toilet Transfer Contact Guard Assist Shower Transfer Supervision Eating Independent Rec Therapy: Current Status Summary of Assessment and RT assessment complete and pt. is aware of RT Clinical Impression services. Pt. enjoys staying active and has been involved in leisure activities in the afternoon, specifically card games. Treatment Goals Pt. will engage in leisure activities while on the unit. Treatment Plan Provide RT services and encourage involvement. Social Work: Current Status Discharge Plan return home with home care svs and family support Potential for Family Training pt's sister is supportive and involved Anticipated Discharge Home Destination Discharge With home care svs and family support Nutrition: Current Status Monitoring pt eating well and adequately, though w/some c/o limitations on consistent carb diet. 5-6 carb selections (75-90 g) per meal being permitted; menu being checked daily by RDN. FS results have been well-controlled (120-150). Coumadin/vit K education provided 5/3. Appears to be meeting goals as outlined below. Goals: Physical Therapy: Initial Goals Bed Mobility Assistance Independent Transfer Mobility Assistance Independent Transfer/Bed Mobility Rolling Walker Recommended Devices Ambulation Independent Ambulation Recommended Devices Rolling Walker Ambulation Distance 150 Physical Therapy: Updated Goals Transfer/Bed Mobility Rolling Walker Recommended Devices Occupational Therapy: Initial Goals Goals to be Completed in (Days 5-10 ) Upper Body Bathing Routine Modified Independent with Lower Body Bathing Routine Modified Independent with Upper Body Dressing Routine Independent Lower Body Dressing Routine Modified Independent with Toilet Hygeine and Clothing Modified Independent with Management Routine Toilet Transfer Routine Modified Independent with Step-In Shower Transfer Supervision/Set Up,Minimal Contact Assist Routine Functional Transfers for ADL Modified Independent with Grooming Routine Independent Feeding Routine Independent Nutrition: Goals Intervention Goals 1. Adequate PO intake to prevent loss of lean body mass w/o promoting undesired weight gain 2. Adequate glycemic control per inpatient parameters; no s/sx hypo- or hyperglycemia 3. Maintain serum electrolytes WNL 4. Pt questions re: diet or Coumadin/vit K guidelines will be addressed prior to dc Social Work: Goals Discharge Plan return home with home care svs and family support Potential for Family Training pt's sister is supportive and involved Anticipated Discharge Home Destination Discharge With home care svs and family support Care Plan: Care Plan ADL's - Improve/Maintain Start: 10/01/17 12:01 Freq: [email or web address]@1200 Status: Active Target: Protocol: Activity Type Activity Date Activity User E-Sign Co-Sign Detail Recorded Client Recorded Date Recorded By Document 10/05/17 14:41 [id number] [id number] 10/05/17 14:41 [id number] 10/05/17 14:41 PMRU Outcome: ADL's/ADL Transfers Orders/Interventions Occupational Therapy Evaluation & Treatment Communication Tool in Patient Room Device Yes Address Deficits Secondary To: Right ITZEL, TTWB RLE Patient to receive OT 5x/wk for 60-120 Therex min/day Self Care Management Group Therapy UE/LE ADL's with Assist Yes: Ligia ADL Transfers with Assist Yes: Ligia, except Pepe for shower transfer Toileting: Transfers,Clothing Management Yes: mdoI ,Hygeine w/Assist Light Kitchen/Laundry w/Assist No Progression Toward Outcome/Goals Progressing Outcome/Goals Met Pt participated well in ADL treatment session, able to utilize AE well with setup , occasional reminders to maintain hip precautions as well as cueing with mobility and transfers for TTWB RLE. Discharge Planning - Improve/Maintain Start: 10/01/17 16:00 Freq: DAILY@1200 Status: Active Target: Protocol: Activity Type Activity Date Activity User E-Sign Co-Sign Detail Recorded Client Recorded Date Recorded By Document 10/06/17 00:50 [id number] 10/06/17 00:51 [id number] 10/06/17 00:50 PMRU Outcome: Discharge Planning Update Patient Family No Outcome/Goals Demonstrates Understanding of Discharge Plan Progression Toward Outcome/Goals Progressing /GI-Improve/Maintain Start: 10/01/17 16:00 Freq: DAILY@1200 Status: Active Target: Protocol: Activity Type Activity Date Activity User E-Sign Co-Sign Detail Recorded Client Recorded Date Recorded By Document 10/06/17 00:50 [id number] 10/06/17 00:51 [id number] 10/06/17 00:50 PMRU Outcome: Genitourinary/ Gastrointestinal Genitourinary- Outcome/Goals Maintain/ Achieve Urinary Continence Maintain/ Achieve Adequate Urinary Output Gastrointestinal-Outcome/Goals Maintain/ Achieve Bowel Regularity in Accordance with Pt's Baseline Prevent Constipation Progression Toward Outcome/Goals - Progressing Progression Toward Outcome/Goals - GI Progressing Outcome/Goals Met Comment pt used the urinal Metabolic Status- Improve/Maintain Start: 10/01/17 16:00 Freq: DAILY@1200 Status: Active Target: Protocol: Activity Type Activity Date Activity User E-Sign Co-Sign Detail Recorded Client Recorded Date Recorded By Document 10/06/17 00:50 [id number] 10/06/17 00:51 [id number] 10/06/17 00:50 PMRU Outcome: Metabolic Status Have Fingersticks Been Ordered Yes Fingerstick Order Frequency AC & HS Outcome/Goals Maintain/ Improve Metabolic Status Progression Toward Outcome/Goals Progressing Mobility- Improve/Maintain Start: 10/01/17 16:00 Freq: DAILY@1200 Status: Active Target: Protocol: Activity Type Activity Date Activity User E-Sign Co-Sign Detail Recorded Client Recorded Date Recorded By Document 10/02/17 18:01 [id number] 10/02/17 18:01 [id number] 10/02/17 18:01 PMRU Outcome: Mobility Physical Therapy Evaluation and Yes Treatment Activity OOB with Assistance Yes TTWB Yes Device Yes Assistance Yes Patient to be seen 5x/wk for 60-120 min/ Therex day for: Mobility Training Gait Training Balance Outcome/Goals Maintain/ Achieve Baseline Mobility Status Improve Mobility Status Demonstrates Proper Use of Assistive Devices Free from Complications of Immobility Progression Toward Outcome/Goals Progressing Bed Mobility Yes: independent Transfers Yes: independent with rollingwalker with TTWB Gait x ft Yes: independent with RW 150' while TTWB Up/Down Stairs Yes: up down 1 step (Curb) with RW CGA. Pain/Comfort- Improve/Maintain Start: 10/01/17 16:00 Freq: DAILY@1200 Status: Active Target: Protocol: Activity Type Activity Date Activity User E-Sign Co-Sign Detail Recorded Client Recorded Date Recorded By Document 10/06/17 00:50 [id number] 10/06/17 00:51 [id number] 10/06/17 00:50 PMRU Outcome: Pain/Comfort Outcome/Goals Demonstrates Knowledge and Use of Available Comfort Measures Achieves Acceptable Comfort/Pain Level as Determined by Patient/Condit Maintain Comfort Level Allowing Patient to Fully Participate in Rehab Progression Toward Outcome/Goals Progressing Outcome/Goals Met Comment 2 Percocet given Respiratory - Improve/Maintain Start: 10/01/17 16:00 Freq: DAILY@1200 Status: Active Target: Protocol: Activity Type Activity Date Activity User E-Sign Co-Sign Detail Recorded Client Recorded Date Recorded By Document 10/06/17 00:50 [id number] 10/06/17 00:51 [id number] 10/06/17 00:50 PMRU Outcome: Respiratory Does Patient Have a Trach No Outcome/Goals Maintain/ Improve O2 Sat per MD Order Maintain/ Improve Activity Tolerance Prevent Pneumonia/ Atelectasis Progression Toward Outcome/Goals Progressing Safety- Improve/Maintain Start: 10/01/17 16:00 Freq: DAILY@1200 Status: Active Target: Protocol: Activity Type Activity Date Activity User E-Sign Co-Sign Detail Recorded Client Recorded Date Recorded By Document 10/06/17 00:50 [id number] 10/06/17 00:51 [id number] 10/06/17 00:50 PMRU Outcome: Safety Outcome/Goals Remain Free of Injury or Harm Cooperates with Safety Measures for Least Restrictive Environment Prevent Falls/ Injury Progression Toward Outcome/Goals Progressing Skin- Improve/Maintain Start: 10/01/17 16:00 Freq: DAILY@1200 Status: Active Target: Protocol: Activity Type Activity Date Activity User E-Sign Co-Sign Detail Recorded Client Recorded Date Recorded By Document 10/06/17 00:50 [id number] 10/06/17 00:51 [id number] 10/06/17 00:50 PMRU Outcome: Skin Skin Risk Level Medium Skin Orders Dressing Change Outcome/Goals Maintain/ Improve Skin Intergrity Free from Decubitus Surgical Incisions Healing Progression Toward Outcome/Goals Progressing Medicine Note: Length of Stay: 3 days Anticipated Discharge Destination: Home Tentative Discharge Date: 10/09/17 Discharged to: home
[2017-10-06] MEDS: Enoxaparin(*) 40 MG/0.4 ML SYR SUBCUT SCH (13:11)
--- NOTE | 2017-10-06 16:09 | PN ---
Progress Note Date of Service: 10/06/17 Note: AHSAN MOORE JR was visited. Therapy notes read and reviewed. He was discussed in interdisicplinary team rounds. He is moving ok and maintaining WB status. INR beginning to move. Current Medications: Active Medications Generic Name Dose Route Start Last Admin Trade Name Freq PRN Reason Stop Dose Admin Acetaminophen 650 mg 10/01/17 10:30 Tylenol Tab* PO Q6H PRN FEVER/PAIN Albuterol 2 puff 10/01/17 12:15 Ventolin Hfa Inhaler* INH Q6H PRN SOB/WHEEZING Albuterol/Ipratropium 1 neb 10/01/17 16:43 10/05/17 21:44 Duoneb (Albuterol 2.5 Mg/Ipratropium 0.5 Mg) INH 1 neb Q6H PRN Administration SOB/WHEEZING Amiodarone HCl 200 mg 10/02/17 09:00 10/06/17 08:24 Cordarone Tab* PO 200 mg DAILY [facility] Administration Atorvastatin Calcium 80 mg 10/01/17 17:00 10/05/17 17:12 Lipitor* PO 80 mg 1700 [facility] Administration Carvedilol 12.5 mg 10/01/17 21:00 10/06/17 08:27 Coreg Tab* PO 12.5 mg BID [facility] Administration Device 1 each 10/01/17 17:00 Tiotropium Inhaler Device* .SEE ORDER .USE w/ SPIRIVA CAPS [facility] Dextrose 12.5 gm 10/01/17 10:36 D50w Syringe 50 Ml* IV PUSH .FOR FS < 60 - SS PRN FS < 60 Docusate Sodium 100 mg 10/01/17 21:00 10/06/17 08:23 Colace Cap* PO 100 mg BID [facility] Administration Enoxaparin Sodium 40 mg 10/01/17 12:00 10/06/17 13:11 Lovenox(*) SUBCUT 40 mg Q24H [facility] Administration Gabapentin 900 mg 10/01/17 21:00 10/06/17 08:24 Neurontin Cap(*) PO 900 mg BID [facility] Administration Insulin Human Lispro 0 - 10 units 10/01/17 11:30 10/06/17 12:19 Humalog* SUBCUT Not Given ACHS [facility] Protocol Lidocaine 1 patch 10/03/17 21:00 10/05/17 19:55 Lidoderm 5% Patch* TRANSDERM 1 patch BEDTIME [facility] Administration Magnesium Hydroxide 30 ml 10/01/17 10:30 10/04/17 18:21 Milk Of Magnesia Liq* PO 30 ml Q6H PRN Administration CONSTIPATION Magnesium Oxide 400 mg 10/02/17 09:00 10/06/17 08:24 Magox 400 Tab* PO 400 mg DAILY [facility] Administration Metformin HCl 500 mg 10/01/17 17:00 10/06/17 08:23 Glucophage* PO 500 mg 0800,1700 [facility] Administration Methocarbamol 750 mg 10/01/17 12:14 Robaxin Tab* PO TID PRN SPASMS Neomycin/Polymyxin/Dexamethasone 1 drop 10/02/17 21:00 10/06/17 08:25 Maxitrol Opth Susp 0.1%* LEFT EYE 1 drop BID [facility] Administration Nicotine 1 patch 10/02/17 08:00 10/06/17 08:22 Nicotine Patch 21 Mg/24 Hr* TRANSDERM 1 patch DAILY@0800 [facility] Administration Nystatin 1 applic 10/02/17 14:00 10/06/17 13:21 Nystatin Top Powder* TOPICAL Not Given TID [facility] Omeprazole 20 mg 10/02/17 06:00 10/06/17 06:07 Prilosec Cap* PO 20 mg DAILY@0600 [facility] Administration Oxycodone HCl 10 mg 10/01/17 10:37 10/06/17 02:39 Roxycodone Tab* PO 10 mg Q4H PRN Administration PAIN - UNCONTROLLED Oxycodone/Acetaminophen 2 tab 10/01/17 10:37 10/06/17 06:07 Percocet 5/325 Tab* PO 2 tab Q4H PRN Administration PAIN - SEVERE Oxycodone/Acetaminophen 1 tab 10/01/17 10:39 10/06/17 13:10 Percocet 5/325 Tab* PO 1 tab Q4H PRN Administration PAIN - MODERATE TO SEVERE Pharmacy Profile Note 1 note 10/01/17 20:00 10/05/17 19:59 Nicotine Patch Removal Note* PATCH OFF Not Given 1999 [facility] Pharmacy Profile Note 1 note 10/04/17 09:00 10/06/17 08:26 Lidocaine Patch Remove* PATCH OFF 1 note 0900 [facility] Administration Polyvinyl Alcohol 1 drop 10/01/17 13:00 10/06/17 13:21 Polyvinyl Alcohol 1.4% Opth* LEFT EYE Not Given QID [facility] Potassium Chloride 20 meq 10/02/17 09:00 10/06/17 08:23 Klor Con Er Tab* PO 20 meq DAILY [facility] Administration Senna 2 tab 10/01/17 10:30 Senokot Tab* PO BEDTIME PRN CONSTIPATION Tamsulosin HCl 0.4 mg 10/01/17 21:00 10/05/17 19:54 Flomax Cap* PO 0.4 mg BEDTIME [facility] Administration Tiotropium [place] 1 cap 10/02/17 09:00 10/06/17 08:24 Spiriva Cap.Inh* INH 1 cap DAILY [facility] Administration Torsemide 40 mg 10/01/17 18:00 10/05/17 18:29 Demadex* PO 40 mg 1800 [facility] Administration Trazodone HCl 100 mg 10/01/17 21:00 10/06/17 00:04 Desyrel Tab* PO 100 mg BEDTIME [facility] Administration Warfarin Sodium 5 mg 10/05/17 17:00 10/05/17 17:12 Coumadin Tab(*) PO 5 mg DAILY@1700 [facility] Administration Protocol Warfarin Sodium 2 mg 10/05/17 17:00 10/05/17 17:12 Coumadin Tab(*) PO 2 mg DAILY@1700 [facility] Administration Vital Signs: Vital Signs Temp Pulse Resp BP Pulse Ox 97.5 F 67 20 114/60 97 10/06/17 06:08 10/06/17 06:08 10/06/17 14:57 10/06/17 06:08 10/06/17 06:08 Lab Results: Laboratory Results - last 24 hr 10/05/17 10/05/17 10/05/17 07:45 12:18 16:43 INR (Anticoag Therapy) POC Glucose (mg/dL) 120 H 118 H 147 H 10/05/17 10/06/17 10/06/17 20:10 06:14 07:38 INR (Anticoag Therapy) 1.27 H POC Glucose (mg/dL) 150 H 99 10/06/17 11:16 INR (Anticoag Therapy) POC Glucose (mg/dL) 88 Exam: LUNGS: occasional wheeze CV: regular rate and rhythm ABD: + bowel sounds, soft, non-tender, non-distended EXT: Left greater than right 3+ pitting edema. Assessment/Plan: 1. Right total hip replacement: f/u with Dr. Cazares. TTWB RLE. continue PT/OT. 2. Acute post-op anemia: H/H is stable. 3. Bilateral lower extremity edema: Bilateral lower extremity venous dopplers on 10/02/17 show no DVT. Continue diuretic. 4. DVT prophylaxis: lovenox/coumadin. CESAR shannon. Coumadin 7mg since 10/05/17. INR daily until therapeutic. D/C lovenox when INR therapeutic. 5. COPD: spiriva and duoneb prn. Oxygen at night prn. 6. Diabetes mellitus: on metformin and sliding scale insulin. Monitor FS. Consistent carb diet. 7. CAD/CHF: Continue current meds and lipitor. Was on plavix and ASA pre-op. Restart when off coumadin per Dr. Cazares. 8. Smoker: nicotine replacement. 9. Advanced directives: full code. 10. Estimated LOS: anticipate d/c on 10/09. 10/06/17 16:10
[2017-10-06] MEDS: Warfarin TAB(*) 5 MG PO SCH (17:14)
[2017-10-06] MEDS: Torsemide TAB* 20 MG PO SCH (17:14)
[2017-10-06] MEDS: Atorvastatin* 80 MG TAB PO SCH (17:14)
[2017-10-06] MEDS: Warfarin TAB(*) 2 MG PO SCH (17:14)
[2017-10-06] MEDS: Tamsulosin CAP* 0.4 MG PO SCH (19:56)
[2017-10-06] MEDS: Lidocaine PATCH 5%* 1 PATCH TRANSDERM SCH (20:00)
[2017-10-06] MEDS: Nicotine Patch Removal NOTE PATCH OFF SCH (20:12)
[2017-10-06] MEDS: Albuterol/Ipratropium NEB.SOL* Albuterol 2.5 MG/Ipratropium 0.5 MG 3 ML INH PRN (21:34)
[2017-10-07] MEDS: oxyCODONE TAB* 5 MG TAB PO PRN ×4 (00:15→20:51)
[2017-10-07] MEDS: oxyCODONE/Acetamin 5/325 MG* TAB PO PRN ×5 (02:55→22:31)
[2017-10-07] MEDS: Omeprazole CAP* 20 MG PO SCH (04:54)
[2017-10-07 06:52] LABS: INR 1.51 (0.77-1.02)
[2017-10-07] MEDS: Insulin LISPRO* 1 UNITS UNIT SUBCUT SCH ×4 (08:33→20:24)
[2017-10-07] MEDS: Neomycin/Polymy/Dex OPTH.SUSP* MAXITROL 0.1% 5 ML LEFT EYE SCH ×2 (08:40→20:50)
[2017-10-07] MEDS: Gabapentin CAP(*) 300 MG PO SCH ×2 (08:41→20:51)
[2017-10-07] MEDS: Potassium Chlor TAB* 20 MEQ TAB.ER PO SCH (08:41)
[2017-10-07] MEDS: Magnesium Oxide TAB* 400 MG PO SCH (08:41)
[2017-10-07] MEDS: Docusate CAP* 100 MG PO SCH ×2 (08:41→20:51)
[2017-10-07] MEDS: metFORMIN* 500 MG TAB PO SCH ×2 (08:41→17:19)
[2017-10-07] MEDS: Amiodarone TAB* 200 MG PO SCH (08:41)
[2017-10-07] MEDS: Carvedilol TAB* 6.25 MG PO SCH ×2 (08:41→20:50)
[2017-10-07] MEDS: Tiotropium CAP.INH* CAP.INH/18 MCG (USE ORDER SET !) INH SCH (08:43)
[2017-10-07] MEDS: Nystatin TOP POWDER* 15 GM BTL TOPICAL SCH ×3 (08:47→20:55)
[2017-10-07] MEDS: Lidocaine Patch REMOVE* 1 NOTE MISC PATCH OFF SCH (08:48)
[2017-10-07] MEDS: Artificial Tears* 15 ML BTL LEFT EYE SCH ×4 (08:56→20:55)
[2017-10-07] MEDS: Nicotine PATCH 21 MG/24 HR* PATCH TRANSDERM SCH (10:40)
[2017-10-07] MEDS: Enoxaparin(*) 40 MG/0.4 ML SYR SUBCUT SCH (12:59)
[2017-10-07] MEDS: Atorvastatin* 80 MG TAB PO SCH (17:18)
[2017-10-07] MEDS: Warfarin TAB(*) 5 MG PO SCH (17:19)
[2017-10-07] MEDS: Torsemide TAB* 20 MG PO SCH (17:19)
[2017-10-07] MEDS: Warfarin TAB(*) 2 MG PO SCH (17:19)
--- NOTE | 2017-10-07 19:37 | PN ---
Progress Note Date of Service: 10/07/17 Note: AHSAN MOORE JR was visited. Therapy notes read and reviewed. Feeling a little anxious, and wants an ativan, which he got Thursday. He has not smoked since he had his hip done. Encouraged to keep going Current Medications: Active Medications Generic Name Dose Route Start Last Admin Trade Name Freq PRN Reason Stop Dose Admin Acetaminophen 650 mg 10/01/17 10:30 Tylenol Tab* PO Q6H PRN FEVER/PAIN Albuterol 2 puff 10/01/17 12:15 Ventolin Hfa Inhaler* INH Q6H PRN SOB/WHEEZING Albuterol/Ipratropium 1 neb 10/01/17 16:43 10/06/17 21:34 Duoneb (Albuterol 2.5 Mg/Ipratropium 0.5 Mg) INH 1 neb Q6H PRN Administration SOB/WHEEZING Amiodarone HCl 200 mg 10/02/17 09:00 10/07/17 08:41 Cordarone Tab* PO 200 mg DAILY ALEXX Administration Atorvastatin Calcium 80 mg 10/01/17 17:00 10/07/17 17:18 Lipitor* PO 80 mg 1700 ALEXX Administration Carvedilol 12.5 mg 10/01/17 21:00 10/07/17 08:41 Coreg Tab* PO 12.5 mg BID ALEXX Administration Device 1 each 10/01/17 17:00 Tiotropium Inhaler Device* .SEE ORDER .USE w/ SPIRIVA CAPS ALEXX Dextrose 12.5 gm 10/01/17 10:36 D50w Syringe 50 Ml* IV PUSH .FOR FS < 60 - SS PRN FS < 60 Docusate Sodium 100 mg 10/01/17 21:00 10/07/17 08:41 Colace Cap* PO 100 mg BID ALEXX Administration Enoxaparin Sodium 40 mg 10/01/17 12:00 10/07/17 12:59 Lovenox(*) SUBCUT 40 mg Q24H ALEXX Administration Gabapentin 900 mg 10/01/17 21:00 10/07/17 08:41 Neurontin Cap(*) PO 900 mg BID ALEXX Administration Insulin Human Lispro 0 - 10 units 10/01/17 11:30 10/07/17 17:20 Humalog* SUBCUT 1 units ACHS ALEXX Administration Protocol Lidocaine 1 patch 10/03/17 21:00 10/06/17 20:00 Lidoderm 5% Patch* TRANSDERM 1 patch BEDTIME ALEXX Administration Lorazepam 0.5 mg 10/07/17 21:00 Ativan Tab(*) PO 10/07/17 21:01 ONCE ONE Magnesium Hydroxide 30 ml 10/01/17 10:30 10/04/17 18:21 Milk Of Magnesia Liq* PO 30 ml Q6H PRN Administration CONSTIPATION Magnesium Oxide 400 mg 10/02/17 09:00 10/07/17 08:41 Magox 400 Tab* PO 400 mg DAILY ALEXX Administration Metformin HCl 500 mg 10/01/17 17:00 10/07/17 17:19 Glucophage* PO 500 mg 0800,1700 [facility] Administration Methocarbamol 750 mg 10/01/17 12:14 Robaxin Tab* PO TID PRN SPASMS Neomycin/Polymyxin/Dexamethasone 1 drop 10/02/17 21:00 10/07/17 08:40 Maxitrol Opth Susp 0.1%* LEFT EYE 1 drop BID [facility] Administration Nicotine 1 patch 10/02/17 08:00 10/07/17 10:40 Nicotine Patch 21 Mg/24 Hr* TRANSDERM 1 patch DAILY@0800 [facility] Administration Nystatin 1 applic 10/02/17 14:00 10/07/17 13:22 Nystatin Top Powder* TOPICAL Not Given TID [facility] Omeprazole 20 mg 10/02/17 06:00 10/07/17 04:54 Prilosec Cap* PO 20 mg DAILY@0600 [facility] Administration Oxycodone HCl 10 mg 10/01/17 10:37 10/07/17 10:44 Roxycodone Tab* PO 10 mg Q4H PRN Administration PAIN - UNCONTROLLED Oxycodone/Acetaminophen 2 tab 10/01/17 10:37 10/07/17 17:24 Percocet 5/325 Tab* PO 2 tab Q4H PRN Administration PAIN - SEVERE Oxycodone/Acetaminophen 1 tab 10/01/17 10:39 10/06/17 13:10 Percocet 5/325 Tab* PO 1 tab Q4H PRN Administration PAIN - MODERATE TO SEVERE Pharmacy Profile Note 1 note 10/01/17 20:00 10/06/17 20:12 Nicotine Patch Removal Note* PATCH OFF Not Given 1999 [facility] Pharmacy Profile Note 1 note 10/04/17 09:00 10/07/17 08:48 Lidocaine Patch Remove* PATCH OFF 1 note 0900 ALEXX Administration Polyvinyl Alcohol 1 drop 10/01/17 13:00 10/07/17 17:25 Polyvinyl Alcohol 1.4% Opth* LEFT EYE Not Given QID [facility] Potassium Chloride 20 meq 10/02/17 09:00 10/07/17 08:41 Klor Con Er Tab* PO 20 meq DAILY ALEXX Administration Senna 2 tab 10/01/17 10:30 Senokot Tab* PO BEDTIME PRN CONSTIPATION Tamsulosin HCl 0.4 mg 10/01/17 21:00 10/06/17 19:56 Flomax Cap* PO 0.4 mg BEDTIME ALEXX Administration Tiotropium [place] 1 cap 10/02/17 09:00 10/07/17 08:43 Spiriva Cap.Inh* INH 1 cap DAILY ALEXX Administration Torsemide 40 mg 10/01/17 18:00 10/07/17 17:19 Demadex* PO 40 mg 1800 ALEXX Administration Trazodone HCl 100 mg 10/01/17 21:00 10/06/17 21:30 Desyrel Tab* PO 100 mg BEDTIME ALEXX Administration Warfarin Sodium 5 mg 10/05/17 17:00 10/07/17 17:19 Coumadin Tab(*) PO 5 mg DAILY@1700 ALEXX Administration Protocol Warfarin Sodium 2 mg 10/05/17 17:00 10/07/17 17:19 Coumadin Tab(*) PO 2 mg DAILY@1700 ALEXX Administration Vital Signs: Vital Signs Temp Pulse Resp BP Pulse Ox 97.9 F 74 18 119/53 93 10/07/17 15:08 10/07/17 15:08 10/07/17 17:25 10/07/17 15:08 10/07/17 17:35 Lab Results: Laboratory Results - last 24 hr 10/06/17 10/07/17 10/07/17 20:29 06:30 08:08 INR (Anticoag Therapy) 1.51 H POC Glucose (mg/dL) 141 H 109 H 10/07/17 10/07/17 11:58 16:41 INR (Anticoag Therapy) POC Glucose (mg/dL) 128 H 150 H Exam: LUNGS: occasional wheeze CV: regular rate and rhythm ABD: + bowel sounds, soft, non-tender, non-distended EXT: Left greater than right 2+ pitting edema. Assessment/Plan: 1. Right total hip replacement: f/u with Dr. Cazares. TTWB RLE. continue PT/OT. 2. Acute post-op anemia: H/H is stable. 3. Bilateral lower extremity edema: Continue Torsemide. 4. DVT prophylaxis: lovenox/coumadin. CESAR shannon. Coumadin 7mg since 10/05/17. INR daily until therapeutic. D/C lovenox when INR therapeutic. 5. COPD: spiriva and duoneb prn. Oxygen at night prn. 6. Diabetes mellitus: on metformin and sliding scale insulin. Monitor FS. Consistent carb diet. 7. CAD/CHF: Continue current meds and lipitor. Was on plavix and ASA pre-op. Restart when off coumadin per Dr. Cazares. 8. Smoker: nicotine replacement. 9. Advanced directives: full code. 10. Estimated LOS: anticipate d/c on 10/09. 10/07/17 19:38
[2017-10-07] MEDS: Tamsulosin CAP* 0.4 MG PO SCH (20:51)
[2017-10-07] MEDS: Lidocaine PATCH 5%* 1 PATCH TRANSDERM SCH (20:52)
[2017-10-07] MEDS ORDERED: LORazepam TAB(*) 0.5 MG PO ONE (21:00)
[2017-10-07] MEDS: Nicotine Patch Removal NOTE PATCH OFF SCH (21:38)
[2017-10-07] MEDS: traZODone TAB* 100 MG PO SCH (22:31)
[2017-10-07] MEDS: Albuterol/Ipratropium NEB.SOL* Albuterol 2.5 MG/Ipratropium 0.5 MG 3 ML INH PRN (22:33)
[2017-10-08] MEDS: Omeprazole CAP* 20 MG PO SCH (05:28)
[2017-10-08] MEDS: oxyCODONE/Acetamin 5/325 MG* TAB PO PRN ×4 (05:34→20:12)
[2017-10-08 06:48] LABS: INR 1.93 (0.77-1.02)
[2017-10-08] MEDS: Insulin LISPRO* 1 UNITS UNIT SUBCUT SCH ×4 (08:13→20:16)
[2017-10-08] MEDS: Artificial Tears* 15 ML BTL LEFT EYE SCH ×4 (08:20→20:10)
[2017-10-08] MEDS: Neomycin/Polymy/Dex OPTH.SUSP* MAXITROL 0.1% 5 ML LEFT EYE SCH ×2 (08:20→20:10)
[2017-10-08] MEDS: Gabapentin CAP(*) 300 MG PO SCH ×2 (08:21→20:11)
[2017-10-08] MEDS: Nystatin TOP POWDER* 15 GM BTL TOPICAL SCH ×3 (08:21→20:17)
[2017-10-08] MEDS: Potassium Chlor TAB* 20 MEQ TAB.ER PO SCH (08:21)
[2017-10-08] MEDS: oxyCODONE TAB* 5 MG TAB PO PRN (08:22)
[2017-10-08] MEDS: metFORMIN* 500 MG TAB PO SCH ×2 (08:22→18:14)
[2017-10-08] MEDS: Magnesium Oxide TAB* 400 MG PO SCH (08:22)
[2017-10-08] MEDS: Carvedilol TAB* 6.25 MG PO SCH ×2 (08:22→20:11)
[2017-10-08] MEDS: Amiodarone TAB* 200 MG PO SCH (08:22)
[2017-10-08] MEDS: Tiotropium CAP.INH* CAP.INH/18 MCG (USE ORDER SET !) INH SCH (08:24)
[2017-10-08] MEDS: Lidocaine Patch REMOVE* 1 NOTE MISC PATCH OFF SCH (08:26)
[2017-10-08] MEDS: Docusate CAP* 100 MG PO SCH ×2 (08:26→20:16)
[2017-10-08] MEDS: Nicotine PATCH 21 MG/24 HR* PATCH TRANSDERM SCH (09:55)
[2017-10-08] MEDS: Enoxaparin(*) 40 MG/0.4 ML SYR SUBCUT SCH (12:06)
[2017-10-08] MEDS ORDERED: oxyCODONE TAB* 5 MG TAB PO PRN (15:24)
[2017-10-08] MEDS: Warfarin TAB(*) 5 MG PO SCH (18:14)
[2017-10-08] MEDS: Atorvastatin* 80 MG TAB PO SCH (18:14)
[2017-10-08] MEDS: Warfarin TAB(*) 2 MG PO SCH (18:14)
[2017-10-08] MEDS: Torsemide TAB* 20 MG PO SCH (18:16)
[2017-10-08] MEDS: traZODone TAB* 100 MG PO SCH (20:11)
[2017-10-08] MEDS: Tamsulosin CAP* 0.4 MG PO SCH (20:11)
[2017-10-08] MEDS: Nicotine Patch Removal NOTE PATCH OFF SCH (20:15)
--- NOTE | 2017-10-08 22:07 | PN ---
Progress Note Date of Service: 10/08/17 Note: AHSAN MOORE JR was visited. Therapy notes read and reviewed. He is getting ready for discharge in am. Trying to taper off some of pain medications. INR now 1.9 Current Medications: Active Medications Generic Name Dose Route Start Last Admin Trade Name Freq PRN Reason Stop Dose Admin Acetaminophen 650 mg 10/01/17 10:30 Tylenol Tab* PO Q6H PRN FEVER/PAIN Albuterol 2 puff 10/01/17 12:15 Ventolin Hfa Inhaler* INH Q6H PRN SOB/WHEEZING Albuterol/Ipratropium 1 neb 10/01/17 16:43 10/07/17 22:33 Duoneb (Albuterol 2.5 Mg/Ipratropium 0.5 Mg) INH 1 neb Q6H PRN Administration SOB/WHEEZING Amiodarone HCl 200 mg 10/02/17 09:00 10/08/17 08:22 Cordarone Tab* PO 200 mg DAILY ALEXX Administration Atorvastatin Calcium 80 mg 10/01/17 17:00 10/08/17 18:14 Lipitor* PO 80 mg 1700 ALEXX Administration Carvedilol 12.5 mg 10/01/17 21:00 10/08/17 20:11 Coreg Tab* PO 12.5 mg BID ALEXX Administration Device 1 each 10/01/17 17:00 Tiotropium Inhaler Device* .SEE ORDER .USE w/ SPIRIVA CAPS ALEXX Dextrose 12.5 gm 10/01/17 10:36 D50w Syringe 50 Ml* IV PUSH .FOR FS < 60 - SS PRN FS < 60 Docusate Sodium 100 mg 10/01/17 21:00 10/08/17 20:16 Colace Cap* PO Not Given BID ALEXX Gabapentin 900 mg 10/01/17 21:00 10/08/17 20:11 Neurontin Cap(*) PO 900 mg BID ALEXX Administration Insulin Human Lispro 0 - 10 units 10/01/17 11:30 10/08/17 20:16 Humalog* SUBCUT Not Given ACHS ALEXX Protocol Lidocaine 1 patch 10/03/17 21:00 10/08/17 20:13 Lidoderm 5% Patch* TRANSDERM 1 patch BEDTIME ALEXX Administration Magnesium Hydroxide 30 ml 10/01/17 10:30 10/04/17 18:21 Milk Of Magnesia Liq* PO 30 ml Q6H PRN Administration CONSTIPATION Magnesium Oxide 400 mg 10/02/17 09:00 10/08/17 08:22 Magox 400 Tab* PO 400 mg DAILY ALEXX Administration Metformin HCl 500 mg 10/01/17 17:00 10/08/17 18:14 Glucophage* PO 500 mg 0800,1700 ALEXX Administration Methocarbamol 750 mg 10/01/17 12:14 Robaxin Tab* PO TID PRN SPASMS Neomycin/Polymyxin/Dexamethasone 1 drop 10/02/17 21:00 10/08/17 20:10 Maxitrol Opth Susp 0.1%* LEFT EYE 1 drop BID ALEXX Administration Nicotine 1 patch 10/02/17 08:00 10/08/17 09:55 Nicotine Patch 21 Mg/24 Hr* TRANSDERM 1 patch DAILY@0800 ALEXX Administration Nystatin 1 applic 10/02/17 14:00 10/08/17 20:17 Nystatin Top Powder* TOPICAL Not Given TID ALEXX Omeprazole 20 mg 10/02/17 06:00 10/08/17 05:28 Prilosec Cap* PO 20 mg DAILY@0600 ALEXX Administration Oxycodone HCl 10 mg 10/08/17 15:24 10/08/17 18:30 Roxycodone Tab* PO 10 mg Q8H PRN Administration PAIN - UNCONTROLLED Oxycodone/Acetaminophen 2 tab 10/01/17 10:37 10/08/17 20:12 Percocet 5/325 Tab* PO 2 tab Q4H PRN Administration PAIN - SEVERE Oxycodone/Acetaminophen 1 tab 10/01/17 10:39 10/06/17 13:10 Percocet 5/325 Tab* PO 1 tab Q4H PRN Administration PAIN - MODERATE TO SEVERE Pharmacy Profile Note 1 note 10/01/17 20:00 10/08/17 20:15 Nicotine Patch Removal Note* PATCH OFF 1 note 1999 ALEXX Administration Pharmacy Profile Note 1 note 10/04/17 09:00 10/08/17 08:26 Lidocaine Patch Remove* PATCH OFF 1 note 0900 ALEXX Administration Polyvinyl Alcohol 1 drop 10/01/17 13:00 10/08/17 20:10 Polyvinyl Alcohol 1.4% Opth* LEFT EYE 1 drop QID ALEXX Administration Potassium Chloride 20 meq 10/02/17 09:00 10/08/17 08:21 Klor Con Er Tab* PO 20 meq DAILY ALEXX Administration Senna 2 tab 10/01/17 10:30 Senokot Tab* PO BEDTIME PRN CONSTIPATION Tamsulosin HCl 0.4 mg 10/01/17 21:00 10/08/17 20:11 Flomax Cap* PO 0.4 mg BEDTIME ALEXX Administration Tiotropium [place] 1 cap 10/02/17 09:00 10/08/17 08:24 Spiriva Cap.Inh* INH 1 cap DAILY ALEXX Administration Torsemide 40 mg 10/01/17 18:00 10/08/17 18:16 Demadex* PO 40 mg 1800 ALEXX Administration Trazodone HCl 100 mg 10/01/17 21:00 10/08/17 20:11 Desyrel Tab* PO 100 mg BEDTIME ALEXX Administration Warfarin Sodium 5 mg 10/05/17 17:00 10/08/17 18:14 Coumadin Tab(*) PO 5 mg DAILY@1700 ALEXX Administration Protocol Warfarin Sodium 2 mg 10/05/17 17:00 10/08/17 18:14 Coumadin Tab(*) PO 2 mg DAILY@1700 ALEXX Administration Vital Signs: Vital Signs Temp Pulse Resp BP Pulse Ox 98.3 F 84 18 114/59 98 10/08/17 15:50 10/08/17 15:50 10/08/17 20:14 10/08/17 15:50 10/08/17 15:50 Lab Results: Laboratory Results - last 24 hr 10/08/17 10/08/17 10/08/17 06:05 08:04 12:06 INR (Anticoag Therapy) 1.93 H POC Glucose (mg/dL) 75 93 10/08/17 10/08/17 17:17 20:10 INR (Anticoag Therapy) POC Glucose (mg/dL) 121 H 129 H Exam: LUNGS: scattered wheeze CV: regular rate and rhythm ABD: + bowel sounds, soft, non-tender, non-distended EXT: Left greater than right 2+ pitting edema. Assessment/Plan: 1. Right total hip replacement: f/u with Dr. Cazares. TTWB RLE. continue PT/OT. 2. Acute post-op anemia: H/H is stable. 3. Bilateral lower extremity edema: Continue Torsemide. 4. DVT prophylaxis: coumadin. CESAR hose. Coumadin 7mg since 10/05/17. INR daily. D/ C lovenox . 5. COPD: spiriva and duoneb prn. Oxygen at night prn. 6. Diabetes mellitus: on metformin and sliding scale insulin. Monitor FS. Consistent carb diet. 7. CAD/CHF: Continue current meds and lipitor. Was on plavix and ASA pre-op. Restart when off coumadin per Dr. Cazares. 8. Smoker: nicotine replacement. 9. Advanced directives: full code. 10. Estimated LOS: for d/c tomorrow. 10/08/17 22:07
[2017-10-08] MEDS: Lidocaine PATCH 5%* 1 PATCH TRANSDERM SCH (22:26)
[2017-10-08] MEDS: Albuterol/Ipratropium NEB.SOL* Albuterol 2.5 MG/Ipratropium 0.5 MG 3 ML INH PRN (22:28)
[2017-10-09] MEDS: oxyCODONE/Acetamin 5/325 MG* TAB PO PRN ×4 (00:10→12:31)
[2017-10-09 05:23] VITALS: BP 116/51
[2017-10-09] MEDS: Omeprazole CAP* 20 MG PO SCH (05:28)
[2017-10-09 06:47] LABS: ABS Basophils 0.1 10^3/ul (0-0.2); ABS Eosinophils 1.8 10^3/ul (0-0.6); ABS Monocytes 0.9 10^3/ul (0-0.8); ABS Nucleated RBC 0 10^3/ul; Eosinophil % 16.9 % (0-6); Hematocrit 31 % (42-52); Hemoglobin 10.2 g/dl (14.0-18.0); Lymphocyte % 9.2 % (25-47); Mean Corpuscular HGB Conc 34 g/dl (31-36); Mean Corpuscular Hemoglobin 32 pg (27-31); Mean Corpuscular Volume 96 fL (80-94); Mean Platelet Volume 8.1 um3 (7.4-10.4); Nucleated Red Blood Cells % 0.1; Platelet Count 230 10^3/ul (150-450); Red Blood Count 3.17 10^6/ul (4.0-5.4); Red Cell Distribution Width 17 % (10.5-15); White Blood Count 10.8 10^3/ul (3.5-10.8)
[2017-10-09 07:00] LABS: INR 2.28 (0.77-1.02)
[2017-10-09 07:07] LABS: EGFR Non-African American 68.4 (>60)
[2017-10-09] MEDS: Tiotropium CAP.INH* CAP.INH/18 MCG (USE ORDER SET !) INH SCH (08:12)
[2017-10-09] MEDS: Insulin LISPRO* 1 UNITS UNIT SUBCUT SCH ×2 (09:00→13:27)
[2017-10-09] MEDS: Carvedilol TAB* 6.25 MG PO SCH (09:00)
[2017-10-09] MEDS: Amiodarone TAB* 200 MG PO SCH (09:00)
[2017-10-09] MEDS: Gabapentin CAP(*) 300 MG PO SCH (09:00)
[2017-10-09] MEDS: metFORMIN* 500 MG TAB PO SCH (09:01)
[2017-10-09] MEDS: Docusate CAP* 100 MG PO SCH (09:01)
[2017-10-09] MEDS: Magnesium Oxide TAB* 400 MG PO SCH (09:01)
[2017-10-09] MEDS: Nicotine PATCH 21 MG/24 HR* PATCH TRANSDERM SCH (09:02)
[2017-10-09] MEDS: Lidocaine Patch REMOVE* 1 NOTE MISC PATCH OFF SCH (09:02)
[2017-10-09] MEDS: Potassium Chlor TAB* 20 MEQ TAB.ER PO SCH (09:03)
[2017-10-09] MEDS: Nystatin TOP POWDER* 15 GM BTL TOPICAL SCH ×2 (09:03→13:27)
[2017-10-09] MEDS: Artificial Tears* 15 ML BTL LEFT EYE SCH ×2 (09:03→13:27)
[2017-10-09] MEDS: Neomycin/Polymy/Dex OPTH.SUSP* MAXITROL 0.1% 5 ML LEFT EYE SCH (09:03)
--- NOTE | 2017-10-10 12:29 | DS ---
CC: Dr. Mcdermott.* DISCHARGE SUMMARY: DATE OF ADMISSION: 10/01/17 DATE OF DISCHARGE: 10/09/17 DISCHARGE DIAGNOSES: 1. Right total hip replacement. 2. Small cell cancer of the lung. 3. Bladder cancer. 4. Diabetes mellitus. 5. Coronary artery disease. 6. Congestive heart failure. HISTORY OF PRESENT ILLNESS AND HOSPITAL COURSE: For complete history of the events leading up to his rehab stay, please see the history and physical dictated by me on 10/01/17. While on the rehab unit, the patient remained fairly stable from a medical point of view. His pain was well controlled. He slowly tapered off the pain medications. His metformin was restarted and his blood sugars were in good control. He was maintained on Lovenox and Coumadin for DVT prophylaxis. His Lovenox was discontinued when his Coumadin became therapeutic. He remained able to refrain from smoking with the use of a nicotine patch. The patient was seen by physical and occupational therapy and made good gains with both disciplines. With physical therapy, at the time of admission the patient required min assist do a transfer. He was mini assist to ambulate about 20-feet. With occupational therapy, he was mini assist for toilet transfers. Moderate amount of assistance for lower body dressing. Max assist for toileting. By the time of discharge, the patient was independent transfers, independent ambulating with a rolling walker 50 to 75 feet maintaining his toe touch weightbearing. He was independent in toileting, independent toilet transfers, independent for a light meal preparation, independent dressing. The patient was discharged home on 10/09/17. DISCHARGE DIET: Consistent carbohydrates. DISCHARGE MEDICATIONS: 1. DuoNeb inhaler 1 nebulizer every 6 hours as needed. 2. Amiodarone 200 mg daily. 3. Artificial tears 1 drop to the left 4 times a day. 4. Lipitor 80 mg daily. 5. Coreg 12.5 mg twice daily. 6. Gabapentin 900 mg twice daily. 7. Lidocaine patch to his right leg as needed. 8. Metformin 500 mg twice daily. 9. Nicotine patch 21 mg over 24 hours, he will apply a patch daily and take it off before bedtime. 10. Omeprazole 20 mg daily. 11. Percocet 1 to 2 tablets every 4 hours as needed. 12. Demadex 40 mg daily. 13. Spiriva 1 inhalation daily. 14. Flomax 0.4 mg at bedtime. 15. Trazodone 100 mg at bedtime. 16. Coumadin 7 mg daily or as directed. SERVICES AFTER DISCHARGE: Through the visiting nurse service he will have home nursing, home physical therapy, and home health aide followup. Follow up with Dr. Rubia Cazares in 2 to 3 weeks. [id number]/[facility] #: [id number] MTDD
== END 2017-10-09 14:00 | disposition home health service (06) | DRG 560 ==
LOC: PMRU 10:12
PROVIDERS: ADMIT Physical Medicine & Rehabilitation; ATTEND Physical Medicine & Rehabilitation
PROC: F07Z5ZZ Bed Mobility Treatment (ICD-10-PCS; principal; 2017-10-01)
PROC: F07Z9ZZ Gait Training/Functional Ambulation Treatment (ICD-10-PCS; 2017-10-01)
PROC: F07Z8ZZ Transfer Training Treatment (ICD-10-PCS; 2017-10-01)
PROC: F07Z4ZZ Wheelchair Mobility Treatment (ICD-10-PCS; 2017-10-01)
PROC: F08Z0ZZ Bathing/Showering Techniques Treatment (ICD-10-PCS; 2017-10-01)
PROC: F08Z1ZZ Dressing Techniques Treatment (ICD-10-PCS; 2017-10-01)
PROC: F08Z3ZZ Feeding/Eating Treatment (ICD-10-PCS; 2017-10-01)
DX: Z47.1 Aftercare following joint replacement surgery (principal); C34.90 Malignant neoplasm of unspecified part of unspecified bronchus or lung; Z96.641 Presence of right artificial hip joint; J44.9 Chronic obstructive pulmonary disease, unspecified; F17.210 Nicotine dependence, cigarettes, uncomplicated; I25.10 Atherosclerotic heart disease of native coronary artery without angina pectoris; Z95.5 Presence of coronary angioplasty implant and graft; E11.9 Type 2 diabetes mellitus without complications; Z79.84 Long term (current) use of oral hypoglycemic drugs; I50.9 Heart failure, unspecified; I25.2 Old myocardial infarction; Z79.899 Other long term (current) drug therapy; Z88.8 Allergy status to other drugs, medicaments and biological substances
CPT/HCPCS: 36415; 80053; 85025; 85610; 93970; 94640; A9270-GY; J1650

== ENCOUNTER 2017-11-25 10:37 | Emergency (ER) | payer MEDICARE, MEDICAID, OTHER ==
[2017-11-25 13:18] VITALS: BP 117/65
--- NOTE | 2017-11-27 11:02 | ED ---
Rhiannon Ingram Tenzin, scribed for Christophe Haque MD on 11/25/17 at 1245 . Lower Extremity - HPI Summary HPI Summary: Pt is a 67 old male diabetic send to the ED today by his PMD for a black area on his left foot, per triage. Pt has an hx of fem pop bypass on the same left leg, per triage. Pt is currently using walking chair. Pt is going through radiation treatment right now. He reports that since being diagnosed with cellulitis two weeks ago he noticed that his left foot has turn purple. He noted that water was boozing out of his left foot two weeks ago. Pt denies: Fever, Chills, Erythema (eyes), Sore throat, chest pain, SOB, cough, abd pain, V /N/D, Dysuria, Hematuria, Myalgia, Edema, rash and dizziness. Pt notes that his group home supervisor visits him three times a day and washes his feet which he notes was helpful. No aggravating factors were noted. - History of Current Complaint Chief Complaint: EDExtremityLower Stated Complaint: LT FT DISCOLORATION Time Seen by Provider: 11/25/17 12:30 Hx Obtained From: Patient Pain Intensity: 0 Location: Is Discrete @ - left foot. Aggravating Factor(s): Nothing Alleviating Factor(s): Other - washing with warm water by his aid 3X a week. - Allergies/Home Medications Allergies/Adverse Reactions: Allergies Allergy/AdvReac Type Severity Reaction Status Date / Time VASQUEZ Inhibitors Allergy Severe facial Verified 11/25/17 10:45 swelling lisinopril Allergy Severe facial Verified 11/25/17 10:45 swelling cat dander Allergy Intermediate Wheezing Verified 11/25/17 10:45 white faced hornet(wasp) Allergy Anaphylatic Uncoded 11/25/17 10:45 Shock PMH/Surg Hx/FS Hx/Imm Hx Endocrine/Hematology History: Reports: Hx Anticoagulant Therapy, Hx Diabetes, Hx Anemia Denies: Hx Thyroid Disease, Hx Unexplained Bleeding Cardiovascular History: Reports: Hx Angina, Hx Angioplasty, Hx Congestive Heart Failure, Hx Coronary Artery Disease - STENT, Hx Embolism, Hx Hypercholesterolemia, Hx Hypertension, Hx Peripheral Vascular Disease, Other Cardiovascular Problems/Disorders - carotid endartectomy Denies: Hx Aneurysm, Hx Auto Implanted Cardiovert Defib, Hx Cardiac Arrest, Hx Myocardial Infarction, Hx Pacemaker/ICD, Hx Valvular Heart Disease Respiratory History: Reports: Hx Chronic Obstructive Pulmonary Disease (COPD), Hx Pneumonia, Hx Pulmonary Edema - HX OF, Hx Sleep Apnea, Other Respiratory Problems/Disorders - possible sleep apnea, "wakes up a lot" Denies: Hx Asthma GI History: Reports: Hx Diverticulosis, Hx Gastroesophageal Reflux Disease - ON DAILY MEDS, Hx Hiatal Hernia, Other GI Disorders - hernia Denies: Hx Cirrhosis, Hx Crohn's Disease, Hx Gall Bladder Disease, Hx Gastrointestinal Bleed, Hx Irritable Bowel, Hx Jaundice, Hx Obstructive Bowel, Hx Ileostomy, Hx Pyloric Stenosis, Hx Ulcer History: Reports: Hx Benign Prostatic Hyperplasia, Hx Kidney Stones - 1 SMALL , 2006, NOT MOVED, Other Problems/Disorders Denies: Hx Renal Disease Musculoskeletal History: Reports: Hx Arthritis, Hx Back Problems, Hx Scoliosis, Other Musculoskeletal History - arthritis back/SCOLIOSIS Sensory History: Reports: Hx Cataracts - Bilateral, Hx Contacts or Glasses Denies: Hx Eye Injury, Hx Eye Prosthesis, Hx Glaucoma, Hx Legally Blind, Hx Macular Degeneration, Hx Vision Problem, Hx Deafness, Hx Hearing Aid, Hx Hearing Problem, Other Sensory Impairments Opthamlomology History: Reports: Hx Cataracts - Bilateral, Hx Contacts or Glasses Denies: Hx Eye Injury, Hx Eye Prosthesis, Hx Glaucoma, Hx Legally Blind, Hx Macular Degeneration, Hx Vision Problem, Other Sensory Impairments Neurological History: Reports: Hx Nerve Disease Denies: Hx Dementia, Hx Developmental Delay, Hx Headaches, Hx Migraine, Hx Seizures, Hx Spinal Cord Injury, Hx Transient Ischemic Attacks (TIA) Psychiatric History: Reports: Hx Anxiety Denies: Hx Panic Disorder, Hx Substance Abuse, Other Psychiatric Issues/ Disorders - Cancer History Cancer Type, Location and Year: small cell carcinoma of bladder and lung Hx Chemotherapy: Yes - current with last treatment 2 weeks ago Hx Radiation Therapy: Yes - 2 weeks ago - Surgical History Surgery Procedure, Year, and Place: 2011 & 2012 BLADDER CANCER [facility] [place]. 2005 LUMBAR SURGERY [place]. 2005 RIGHT INDEX FINGER REATTACHED [facility] [place]. 2007 CARDIAC STENT [facility]. 2012 left carotid endarterectomy [facility] [place]. 2013 septoplasty [facility] [place]. 08/2013 LT FEMERAL BYPASS [facility]. 09/2016- BLADDER SURGERY Hx Anesthesia Reactions: No Infectious Disease History: No Infectious Disease History: Denies: Hx Clostridium Difficile, Hx Hepatitis, Hx Human Immunodeficiency Virus (HIV), Hx of Known/Suspected MRSA, Hx Shingles, Hx Tuberculosis, Hx Known/ Suspected VRE, Hx Known/Suspected VRSA, History Other Infectious Disease, Traveled Outside the [place] in Last 30 Days - Family History Known Family History: Positive: Cardiac Disease - Social History Alcohol Use: Weekly Alcohol Amount: 5-6 drinks per week Hx Substance Use: No Substance Use Type: Reports: None Hx Tobacco Use: Yes Smoking Status (MU): Former Smoker Type: Cigarettes Amount Used/How Often: 1 PPD Have You Smoked in the Last Year: Yes Review of Systems Negative: Fever, Chills Negative: Erythema Negative: Sore Throat Negative: Chest Pain Negative: Shortness Of Breath, Cough Negative: Abdominal Pain, Vomiting, Diarrhea, Nausea Negative: dysuria, hematuria Negative: Edema All Other Systems Reviewed And Are Negative: Yes Physical Exam - Summary Physical Exam Summary: Constitutional: Well-developed, Well-nourished, Alert. (-) Distressed Skin: Warm, Dry HENT: Normocephalic; Atraumatic Eyes: Conjunctiva normal Neck: Musculoskeletal ROM normal neck. (-) JVD, (-) Stridor, (-) Tracheal deviation Cardio: Rhythm regular, rate normal, Heart sounds normal; Intact distal pulses; Radial pulses are 2+ and symmetric. (-) Murmur Pulmonary/Chest wall: Effort normal. (-) Respiratory distress, (-) Wheezes, (-) Rales Abd: Soft, (-) Tenderness, (-) Distension, (-) Guarding, (-) Rebound Musculoskeletal: (-) Edema Lymph: (-) Cervical adenopathy Neuro: Alert, Oriented x3 Psych: Mood and affect Normal LEFT FOOT: LESS THAN 2 SECONDS CAPILLARY REFILL Triage Information Reviewed: Yes Vital Signs On Initial Exam: Initial Vitals Temp Pulse Resp BP Pulse Ox 99 F 69 22 162/83 98 11/25/17 10:41 11/25/17 10:41 11/25/17 10:41 11/25/17 10:41 11/25/17 10:41 Vital Signs Reviewed: Yes Diagnostics - Vital Signs Vital Signs Temp Pulse Resp BP Pulse Ox 11/25/17 10:41 99 F 69 22 162/83 98 - Laboratory Lab Statement: Any lab studies that have been ordered have been reviewed, and results considered in the medical decision making process. Lower Extremity Course/Dx - Course Course Of Treatment: Pt is a 67 old male diabetic send to the ED today by his PMD for a black area on his left foot, per triage. Pt has an hx of fem pop bypass on the same left leg, per triage. Pt was give food and drinks at the ED. Pt was told to see an appointment with Dr. Galeana at 1045 AM on thursday at [address], [place]. Capillary refills less than 2 seconds, no indication for emergent vascular procedure. Close vascular follow-up. - Diagnoses Provider Diagnoses: Peripheral vascular disease - Physician Notifications Discussed Care Of Patient With: Jermaine Galeana Time Discussed With Above Provider: 12:45 - will see the pt on 11/27/2017 at 10: 35 AM Discharge - Sign-Out/Discharge Documenting (check all that apply): Discharge/Admit/Transfer - Discharge. - Discharge Plan Condition: Stable Disposition: HOME Patient Education Materials: Peripheral Vascular Disease (ED) Referrals: Soo Mcdermott MD [Primary Care Provider] - Additional Instructions: Pt has an appointment with Dr. Galeana at 1045 AM on thursday at [address], [place]. RETURN TO THE EMERGENCY DEPARTMENT FOR CHANGING OR WORSENING SYMPTOMS. - Billing Disposition and Condition Condition: STABLE Disposition: Home The documentation as recorded by the Rhiannon howard Tenzin accurately reflects the service I personally performed and the decisions made by , Christophe Haque MD.
== END 2017-11-25 13:18 | disposition home or self-care (01) ==
LOC: ED 10:37
DX: I73.9 Peripheral vascular disease, unspecified (principal); Z87.891 Personal history of nicotine dependence; Z79.01 Long term (current) use of anticoagulants
CPT/HCPCS: 99282

== ENCOUNTER 2018-01-13 09:01 | Inpatient (IN) | payer MEDICARE, MEDICAID, OTHER ==
[2018-01-13] MEDS ORDERED: Albuterol/Ipratropium NEB.SOL* Albuterol 2.5 MG/Ipratropium 0.5 MG 3 ML INH ONE (09:13)
[2018-01-13 09:35] LABS: ABS Basophils 0 10^3/ul (0-0.2); ABS Eosinophils 0.1 10^3/ul (0-0.6); ABS Lymphocytes 0.5 10^3/ul (1.0-4.8); ABS Monocytes 0.5 10^3/ul (0-0.8); ABS Neutrophils 3.8 10^3/ul (1.5-7.7); ABS Nucleated RBC 0 10^3/ul; Eosinophil % 1.3 % (0-6); Hematocrit 37 % (42-52); Hemoglobin 12.7 g/dl (14.0-18.0); Lymphocyte % 10.7 % (25-47); Mean Corpuscular HGB Conc 34 g/dl (31-36); Mean Corpuscular Hemoglobin 32 pg (27-31); Mean Corpuscular Volume 93 fL (80-94); Mean Platelet Volume 7.7 um3 (7.4-10.4); Nucleated Red Blood Cells % 0.3; Platelet Count 142 10^3/ul (150-450); Red Blood Count 3.98 10^6/ul (4.00-5.40); Red Cell Distribution Width 19 % (10.5-15)
--- NOTE | 2018-01-13 09:45 | RAD ---
INDICATION: Shortness of breath, productive cough. COMPARISON: Comparison is made with a prior chest x-ray study from August 11, 2017. TECHNIQUE: A portable view of the chest was obtained. FINDINGS: There is a power port central venous catheter present in the right side. The catheter tip projects at the superior vena cava right atrial junction. The heart is within normal limits in size. There is a small infiltrate at the right lung base. No pleural effusion is seen although the right costophrenic angle is cut off on the film. IMPRESSION: SMALL RIGHT BASILAR INFILTRATE.
[2018-01-13] MEDS ORDERED: methylPREDNISolone 125 MG* 2 ML VIAL IV ONE (09:49)
[2018-01-13 09:50] LABS: EGFR Non-African American 69.9 (>60)
[2018-01-13] MEDS ORDERED: Cefepime 2 GM in Dextrose(*) 2 GM/50 ML BAG IV ONE (09:52)
[2018-01-13] MEDS ORDERED: Levofloxacin 750 MG IVPREMIX(* 750 MG/150 ML BAG IVPB ONE (09:52)
--- NOTE | 2018-01-13 10:01 | ED ---
Shortness of Breath - HPI Summary HPI Summary: This is scribe Neel Carter documenting for attending Christophe Haque M.D. Patient is a 67 y/o M BIBA w/ c/o SOB, productive cough onsetting three days ago. He states he has been feeling congested. In the room, patient denies fever , chills, diaphoresis. He reports that he is on 2 L O2 at home and took nebulizer (Albuterol) HANGER OFF w/ no relief in Sx. Patient denies chest pain/ tightness but notes bilateral shoulder tightness. On triage, pain is 5/10 and nothing is noted to aggravate/alleviate Sx. Hx of COPD and CHF is noted in room. Patient reports that he takes Trocilin. Home medications and allergies are reviewed. I, Dr. Haque, personally performed the services described in this documentation as scribed in my presence and it is both accurate and complete. - History of Current Complaint Chief Complaint: EDShortnessOfBreath Time Seen by Provider: 01/13/18 09:05 Hx Obtained From: Patient Onset/Duration: Lasting Days - Sx onset 3 days ago, Still Present Timing: Constant Current Severity: Moderate - 5/10 on triage Aggrevating Factors: Nothing Alleviating Factors: Nothing Associated Signs & Symptoms: Cough (Productive) - Allergy/Home Medications Allergies/Adverse Reactions: Allergies Allergy/AdvReac Type Severity Reaction Status Date / Time VASQUEZ Inhibitors Allergy Severe facial Verified 01/13/18 09:32 swelling lisinopril Allergy Severe facial Verified 01/13/18 09:32 swelling cat dander Allergy Intermediate Wheezing Verified 01/13/18 09:32 white faced hornet(wasp) Allergy Anaphylatic Uncoded 01/13/18 09:32 Shock Home Medications: Home Medications Albuterol inh POWDER (NF) [Proair Respiclick] 2 puff INH Q4HR PRN 01/13/18 [ History Confirmed 01/13/18] Amoxicillin PO (*) [Amoxicillin 500 MG CAP*] 2,000 mg PO ONCE PRN 01/13/18 [ History Confirmed 01/13/18] Artificial Tears* 15 ML BTL [Polyvinyl Alcohol 1.4% OPTH*] 1 drop OPHTHALMIC DAILY 01/13/18 [History Confirmed 01/13/18] Atorvastatin* [Lipitor*] 80 mg PO DAILY 01/13/18 [History Confirmed 01/13/18] Carbamide Peroxide 6.5% OTIC* [DEBROX 6.5% Otic*] 5 drop OTIC BID 01/13/18 [ History Confirmed 01/13/18] Fluticasone NASAL SPRAY 50MCG* [Flonase NASAL SPRAY 50MCG*] 1 spray BOTH NARES BID 01/13/18 [History Confirmed 01/13/18] Gabapentin CAP(*) [Neurontin 300 CAP(*)] 600 mg PO TID 01/13/18 [History Confirmed 01/13/18] Ibuprofen TAB* [Motrin TAB* 800 MG] 800 mg PO BID 01/13/18 [History Confirmed ] Ipratropium/Albuterol Sulfate [Iprat-Albut 0.5-3(2.5) mg/3 ml] 3 ml INH TID [History Confirmed 01/13/18] Multivit-Min/FA/Lycopen/Lutein [Centrum Silver Men Tablet] 1 tab PO DAILY [History Confirmed 01/13/18] Omeprazole CAP* [Prilosec CAP* 20 MG] 20 mg PO DAILY 01/13/18 [History Confirmed 01/13/18] Ondansetron TAB* [Zofran 4 MG Tab*] 4 mg PO Q6H PRN 01/13/18 [History Confirmed 01/13/18] Torsemide TAB* [Demadex 20 MG*] 40 mg PO DAILY 01/13/18 [History Confirmed 01/13] Umeclidin/Vilant 62.5 MDI(NF) [ANORO 62.5/25 Ellipta DEVICE (NF)] 1 puff INH DAILY 01/13/18 [History Confirmed 01/13/18] metFORMIN* [Glucophage 500 MG TAB *] 500 mg PO BID 01/13/18 [History Confirmed 01/13/18] PMH/Surg Hx/FS Hx/Imm Hx Endocrine/Hematology History: Reports: Hx Anticoagulant Therapy, Hx Diabetes, Hx Anemia Denies: Hx Thyroid Disease, Hx Unexplained Bleeding Cardiovascular History: Reports: Hx Angina, Hx Angioplasty, Hx Congestive Heart Failure, Hx Coronary Artery Disease - STENT, Hx Embolism, Hx Hypercholesterolemia, Hx Hypertension, Hx Peripheral Vascular Disease, Other Cardiovascular Problems/Disorders - carotid endartectomy Denies: Hx Aneurysm, Hx Auto Implanted Cardiovert Defib, Hx Cardiac Arrest, Hx Myocardial Infarction, Hx Pacemaker/ICD, Hx Valvular Heart Disease Respiratory History: Reports: Hx Chronic Obstructive Pulmonary Disease (COPD), Hx Pneumonia, Hx Pulmonary Edema - HX OF, Hx Sleep Apnea, Other Respiratory Problems/Disorders - possible sleep apnea, "wakes up a lot" Denies: Hx Asthma GI History: Reports: Hx Diverticulosis, Hx Gastroesophageal Reflux Disease - ON DAILY MEDS, Hx Hiatal Hernia, Other GI Disorders - hernia Denies: Hx Cirrhosis, Hx Crohn's Disease, Hx Gall Bladder Disease, Hx Gastrointestinal Bleed, Hx Irritable Bowel, Hx Jaundice, Hx Obstructive Bowel, Hx Ileostomy, Hx Pyloric Stenosis, Hx Ulcer History: Reports: Hx Benign Prostatic Hyperplasia, Hx Kidney Stones - 1 SMALL , 2005, NOT MOVED, Other Problems/Disorders Denies: Hx Renal Disease Musculoskeletal History: Reports: Hx Arthritis, Hx Back Problems, Hx Scoliosis, Other Musculoskeletal History - arthritis back/SCOLIOSIS Sensory History: Reports: Hx Cataracts - Bilateral, Hx Contacts or Glasses Denies: Hx Eye Injury, Hx Eye Prosthesis, Hx Glaucoma, Hx Legally Blind, Hx Macular Degeneration, Hx Vision Problem, Hx Deafness, Hx Hearing Aid, Hx Hearing Problem, Other Sensory Impairments Opthamlomology History: Reports: Hx Cataracts - Bilateral, Hx Contacts or Glasses Denies: Hx Eye Injury, Hx Eye Prosthesis, Hx Glaucoma, Hx Legally Blind, Hx Macular Degeneration, Hx Vision Problem, Other Sensory Impairments Neurological History: Reports: Hx Nerve Disease Denies: Hx Dementia, Hx Developmental Delay, Hx Headaches, Hx Migraine, Hx Seizures, Hx Spinal Cord Injury, Hx Transient Ischemic Attacks (TIA) Psychiatric History: Reports: Hx Anxiety Denies: Hx Panic Disorder, Hx Substance Abuse, Other Psychiatric Issues/ Disorders - Cancer History Cancer Type, Location and Year: 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 2005 LUMBAR SURGERY TOPPING. 2005 RIGHT INDEX FINGER REATTACHED [facility] [place]. 2007 CARDIAC STENT [facility]. 2012 left carotid endarterectomy [facility] [place] 2013 septoplasty [facility] [place]. 08/2013 LT FEMERAL BYPASS [facility]. 09/2016- BLADDER SURGERY. 09/29/2016-RIGHT HIP REPLACEMENT Hx Anesthesia Reactions: No - Immunization History Immunizations Up to Date: Yes Infectious Disease History: No Infectious Disease History: Denies: Hx Clostridium Difficile, Hx Hepatitis, Hx Human Immunodeficiency Virus (HIV), Hx of Known/Suspected MRSA, Hx Shingles, Hx Tuberculosis, Hx Known/ Suspected VRE, Hx Known/Suspected VRSA, History Other Infectious Disease, Traveled Outside the [place] in Last 30 Days - Family History Known Family History: Positive: Cardiac Disease - Social History Alcohol Use: Weekly Alcohol Amount: 5-6 drinks per week Hx Substance Use: No Substance Use Type: Reports: None Hx Tobacco Use: Yes Smoking Status (MU): Former Smoker Type: Cigarettes Amount Used/How Often: 1 PPD Have You Smoked in the Last Year: Yes Review of Systems Negative: Fever, Chills, Skin Diaphoresis Negative: Erythema Negative: Sore Throat Negative: Chest Pain Positive: Shortness Of Breath, Cough - productive Negative: Abdominal Pain, Diarrhea, Nausea Negative: dysuria, hematuria Positive: Other - bilateral shoulder tightness . Negative: Myalgia, Edema Negative: Rash Neurological: Other - NEGATIVE: dizziness All Other Systems Reviewed And Are Negative: Yes Physical Exam - Summary Physical Exam Summary: Constitutional: Well-developed, Well-nourished, Alert. (-) Distressed Skin: Warm, Dry HENT: Normocephalic; Atraumatic Eyes: Conjunctiva normal Neck: Musculoskeletal ROM normal neck. (-) JVD, (-) Stridor, (-) Tracheal deviation Cardio: Rhythm regular, rate normal, Heart sounds normal; Intact distal pulses; The pedal pulses are 2+ and symmetric. Radial pulses are 2+ and symmetric. (-) Murmur Pulmonary/Chest wall: Effort normal. (+) Mild respiratory distress, (+) Bilateral wheezing, worse on left side (-) Rales Abd: Soft, (-) epigastric tenderness, (-) Distension, (-) Guarding, (-) Rebound Musculoskeletal: (-) Edema Lymph: (-) Cervical adenopathy Neuro: Alert, Oriented x3 Psych: Mood and affect Normal Triage Information Reviewed: Yes Vital Signs On Initial Exam: Initial Vitals Temp Pulse Resp BP Pulse Ox 97.8 F 77 22 128/63 92 01/13/18 09:07 01/13/18 09:07 01/13/18 09:07 01/13/18 09:07 01/13/18 09:07 Vital Signs Reviewed: Yes Diagnostics - Vital Signs Vital Signs Temp Pulse Resp BP Pulse Ox 01/13/18 09:24 73 22 125/62 91 01/13/18 09:12 75 16 128/63 87 01/13/18 09:07 97.8 F 78 23 128/63 88 - Laboratory Result Diagrams: 01/13/18 09:23 01/13/18 09:23 Lab Statement: Any lab studies that have been ordered have been reviewed, and results considered in the medical decision making process. - Radiology CXR Xray Interpretation: Positive (See Comments) Radiology Interpretation Completed By: Radiologist - Small right basilar infiltrate. This report was reviewed by ED physician. - EKG 914 Cardiac Rate: NL - Rate of 72 BPM. EKG Rhythm: Sinus Rhythm EKG Interpretation: RSR in V1 or V2, no STEMI Re-Evaluation - Re-Evaluation First Eval Re-Evaluation Time: 10:50 Comment: Informed patient of results of labs and tests. In the room, patient was dozing off and Dr. Haque was concerned of patient falling out of bed. Nursing is securing patient in bed. Second Eval Re-Evaluation Time: 12:00 Change: Worse Comment: Patient appeared fatigued; given his pCO2 of 63, start Bipap. Course/Dx - Course Assessment/Plan: Patient is a 67 y/o M BIBA w/ c/o SOB, productive cough onsetting three days ago. He states he has been feeling congested. In the room, patient denies fever, chills, diaphoresis. He reports that he is on 2 L O2 at home and took nebulizer (Albuterol) HANGER OFF w/ no relief in Sx. Patient denies chest pain/tightness but notes bilateral shoulder tightness. On triage, pain is 5/10 and nothing is noted to aggravate/alleviate Sx. Hx of COPD and CHF is noted in room. During ED course, patient received fluids, Cefepime Hcl 2 gm in 50 mls @ 100 mls/hr IV ED ONCE ONE; Solu-Medrol 125 mg IV ED ONCE ONE; Levaquin 750 Mg Ivpremix 750 mg in 150 mls @ 100 mls/hr IVPB ED ONCE ONE; Albuterol/ Ipratropium 1 neb INH ED ONCE ONE. Labs showed BNP 214, glucose 114, carbon dioxide 33, chloride 96, sodium 133, alkaline phosphatase 129, total protein 5.9. ABG pH was 7.32, ABG pCO2 63, ABG Base Excess 4.7. WBC was 5.0, RBC 3.98, Plt cout 142. CXR showed small right basilar infiltrate. EKG showed normal sinus rhythm w/ rate 72 BPM, RSR in V1 or V2, no STEMI. Dr. Alamo was consulted on patients case at 10:39. He agrees to accept patient for admission for further workup. Patient was diagnosed with community acquired PNA. At 1050, Patient was informed of results of labs and tests and decision to admit. Patient is agreeable with further workup. At 1201, patient appeared fatigued; given his pCO2 of 62, patient was started on Bipap. - Diagnoses Provider Diagnoses: Community acquired pneumonia - Physician Notifications Discussed Care of Patient With: Berto Alamo Time Discussed With Above Provider: 10:39 Instructed by Provider To: Other - Patient's case was discussed with Dr. Alaom at 10:39. Dr. Alamo agrees to accept patient for [facility] admission. 1203 -- Dr. Alamo to check up on status of bed, he reports they have a bed for patient in ICU. Megha Vail was notified bed is ready for patient shortly after. - Critical Care Time Critical Care Time: 30-74 min - 45 minutes Discharge - Sign-Out/Discharge Documenting (check all that apply): Patient Departure - admit - Discharge Plan Condition: Fair Disposition: ADMITTED TO [facility]
[2018-01-13] MEDS ORDERED: NS 0.9% 500 ML* 500 ML IV ONE (10:55)
[2018-01-13] MEDS ORDERED: LORazepam INJ* 2 MG/ML 1 ML VIAL IV PUSH PRN (12:20)
[2018-01-13] MEDS ORDERED: Nitroglycerin TAB 0.4 MG* 0.4 MG TAB SL PRN (12:23)
[2018-01-13] MEDS ORDERED: Magnesium Hydroxide LIQ* 30 ML UDC PO PRN (12:23)
[2018-01-13] MEDS ORDERED: Morphine TAB Extended Release (*) 15 MG TAB.ER PO PRN (12:23)
[2018-01-13] MEDS ORDERED: HYDROcodone/ACETAMIN 5-325 MG* 1 TAB PO PRN (12:23)
[2018-01-13] MEDS ORDERED: Ondansetron TAB* 4 MG PO PRN (12:23)
[2018-01-13] MEDS ORDERED: Albuterol HFA INHALER* 8 gm MDI INH PRN (12:23)
[2018-01-13] MEDS: Albuterol/Ipratropium NEB.SOL* Albuterol 2.5 MG/Ipratropium 0.5 MG 3 ML INH SCH ×2 (14:21→20:11)
[2018-01-13] MEDS: Morphine TAB Extended Release (*) 15 MG TAB.ER PO SCH ×2 (14:37→20:29)
[2018-01-13] MEDS: Gabapentin CAP(*) 300 MG PO SCH ×2 (14:37→20:28)
[2018-01-13] MEDS: Heparin VIAL(*) 5000 UNITS/ML VIAL (FIVE THOUSAND) SUBCUT SCH ×2 (14:40→20:30)
[2018-01-13] MEDS: Nicotine PATCH 21 MG/24 HR* PATCH TRANSDERM SCH (14:40)
--- NOTE | 2018-01-13 14:58 | HP ---
CC: Dr. Mayank Alamo; Dr. Soo Mcdermott; Dr. Rocael Castillo.* HISTORY AND PHYSICAL: DATE OF ADMISSION: 01/13/18 ATTENDING PHYSICIAN FOR THIS ADMISSION: Dr. Mayank Alamo* (dictated by Vandana Baker, JAZZY). PRIMARY CARE PROVIDER: Dr. Soo Mcdermott CONSULTING ON THIS CASE: Dr. Rocael Castillo, the ICU space officer. CHIEF COMPLAINT: Shortness of breath and cough. HISTORY OF PRESENT ILLNESS: This is a 67-year-old male patient with a very complex medical history of COPD, CHF, obstructive sleep apnea, diabetes mellitus , GERD, hypertension, coronary artery disease with stenting, chronic back pain, bladder and lung cancer, currently on chemotherapy, who presents to the emergency department with a complaint of shortness of breath that was increasing over the last 24 hours. The patient states he had a productive cough for approximately 3 days and he has been feeling some increased congestion. He is on O2 at 2 liters at home at baseline. He did an albuterol treatment, also did not have any relief of the symptoms. The patient states he began to have some tightness across his shoulders. Denies any acute chest pain, but he is becoming progressively more short of breath. Also upon examination, the patient appears very lethargic and is tripoding. A blood gas was immediately obtained in the emergency department, which showed the patient to be in hypercarbic respiratory failure. For these reasons, we were asked to admit the patient. PAST MEDICAL HISTORY: As stated above. PAST SURGICAL HISTORY: Includes pacemaker AICD insertion. Also, had surgery for his bladder cancer in 2011 and 2012. He had a lumbar surgery in 2005. Cardiac stent in 2007. At 2012, he had a carotid left endarterectomy. In 2012 , he had a septoplasty. In 2013, he had left lower femoral bypass. In 2016, he had an additional bladder surgery and then also had a right hip replacement. MEDICATIONS: At home include: 1. ProAir 2 puffs q.4 hours as needed. 2. Artificial tears 1 drop each eye daily. 3. Lipitor 80 mg daily. 4. Debrox otic drops 2 times a day. 5. Fluticasone nasal spray 1 spray both nares 2 times a day. 6. Gabapentin 300 mg tablets, 600 mg p.o. 3 times a day. 7. Ibuprofen 800 mg p.o. b.i.d. 8. Ipratropium albuterol nebulize 3 times a day. 9. Multivitamin 1 tablet daily. 10. Omeprazole 20 mg daily. 11. Zofran 4 mg q.6 hours as needed. 12. Torsemide 40 mg daily. 13. Anoro Ellipta inhaler 1 puff inhale daily. 14. Metformin 500 mg p.o. b.i.d. ALLERGIES: To VASQUEZ INHIBITORS. FAMILY HISTORY: Significant for coronary artery disease. SOCIAL HISTORY: The patient is a former smoker, drinks alcohol 5 to 6 drinks per week. Denies any illicit drug use. REVIEW OF SYSTEMS: The patient is complaining of some general malaise, cough productive in nature, and acute shortness of breath, also some general weakness. Denies any further constitutional complaints. PHYSICAL EXAMINATION GENERAL: The patient seems to be lethargic, but is easily aroused with verbal and tactile stimulation. VITAL SIGNS: Currently blood pressure 131/70, heart rate 72, O2 saturation 97% on BIPAP, and respiratory rate of 21, and temperature of 97.1. HEENT: The patient is atraumatic and normocephalic. He has PERRLA with nonicteric sclerae. Oral mucosa is dry. Tongue is midline. He is wearing his BiPAP mask. NECK: Supple and nontender. No JVD noted. No carotid bruits auscultated. LUNGS: Rhonchorous throughout the lung valladares. He has poor air entry and bilateral expiratory wheeze. CARDIOVASCULAR: S1 and S2 present. No murmurs, gallops, or rubs noted. ABDOMEN: Soft, nontender, and nondistended. Positive bowel sounds in all 4 quadrants. : Deferred. MUSCULOSKELETAL: There is no clubbing, no cyanosis, and no edema. He has +2 distal pulses palpable. He has full range of motion, although he has an unsteady gait secondary to weakness. NEUROLOGIC: Again lethargic, but is alert to person, place, and time. However , the patient does appear to nod less in between conversation when not prompted. PSYCHIATRIC: He is cooperative and appropriate initially; however, he did pull off his BIPAP mask after it was placed by Respiratory initially so he does appear to be having some agitation at this time. LABORATORY DATA: WBC is 5.0, RBC is 3.98, hemoglobin 12.7, hematocrit 37, platelets 142. Sodium 133, potassium 3.9, chloride 96, CO2 33, BUN 18, creatinine 1.06, GFR 69.9, glucose 114, lactic acid 1.1. Calcium 8.8, bilirubin 0.40, AST 20, ALT 20, alk phos 129, BNP is 214, which is around his baseline. Troponin 0.03. Protein 5.9, albumin 3.4, globulin 2.5. Blood gas shows a pH of 7.32, a CO2 of 63, PO2 of 81, bicarb 28.3, base excess of 4.7. Total O2 saturation 97.7. RADIOLOGIC EXAM: Chest x-ray dated today shows small right basilar infiltrate, no pleural effusions. EKG shows regular sinus rhythm. ASSESSMENT: This is a 67-year-old male patient with a complex medical history who presented with increasing cough, shortness of breath, and hypercarbic respiratory failure. DIAGNOSES: 1. Shortness of breath and respiratory failure, likely multifactorial. The patient does have a longstanding history of chronic obstructive pulmonary disease. He has an obvious pneumonia now on chest x-ray and also has history of heart failure. He has received cefepime and Levaquin in the ED. We will start him on ceftriaxone tomorrow. This appears to be a community-acquired pneumonia. He does not appear volume overloaded at this point so I do not feel he needs diuresis. I think his heart failure is essentially at his baseline. 2. For his history of chronic obstructive pulmonary disease, we will keep him on his inhalers. He will need DuoNeb likely q.4 hours. I will also add Mucinex to his regimen and incentive spirometry. 3. For his gastroesophageal reflux disease, we will keep him on PPI. 4. For hypertension. Continue his home meds as ordered. 5. For his coronary artery disease, again the patient does not appear to have any chest pain. This all appears to be related to the lungs rather than the heart at this time. Again, maintain on his home medications. 6. For his bladder and lung cancer, he had his last chemo 2 weeks ago. This will be continued again as an outpatient. 7. For his history of chronic back pain, we will keep him on his pain medications as ordered. This has been clarified with the pharmacy. His narcotics have been clarified. He does take morphine 3 times daily extended release with Irrigon for breakthrough, these will be continued. 8. The patient is a full code. At this point, the patient will be admitted to the ICU because he is requiring BIPAP. We will repeat an ABG after a couple of hours on BIPAP. If his numbers have improved, he can be downgraded to the telemetry floor. For DVT prophylaxis , he will be on heparin subcu. Diet will be consistent-carb, low-sodium. He can ambulate as tolerated. I do not feel he needs physical therapy at this point, although he is pretty tired. DISPOSITION: To ICU. This has already been discussed with Dr. Castillo who will also be consulting on the patient given his acute critical status. TIME SPENT: Approximately 70 minutes on this admission interfacing with the patient and other providers involved in the patient's care. The rest of the patient's course is to be determined by further diagnostics, laboratories, and any other input from other providers as warranted during this admission. This plan of care has been discussed with Dr. Mayank Alamo, the attending for this case and he is in agreement with the plan. VANDANA BAKER NP [id number]/[facility] #: [id number] BRY
[2018-01-13] MEDS: Carvedilol TAB* 6.25 MG PO SCH (20:28)
[2018-01-13] MEDS: Lidocaine PATCH 5%* 1 PATCH TRANSDERM SCH (20:28)
[2018-01-13] MEDS: metFORMIN* 500 MG TAB PO SCH (20:29)
[2018-01-13] MEDS: traZODone TAB* 100 MG PO SCH (20:30)
[2018-01-13] MEDS: Nicotine Patch Removal NOTE PATCH OFF SCH (20:30)
[2018-01-13] MEDS: Tamsulosin CAP* 0.4 MG PO SCH (20:30)
[2018-01-13] MEDS: Fluticasone NASAL SPRAY 50MCG* 16 gm SPRAY BTL BOTH NARES SCH (20:31)
[2018-01-14] MEDS: Heparin VIAL(*) 5000 UNITS/ML VIAL (FIVE THOUSAND) SUBCUT SCH ×3 (06:18→22:38)
[2018-01-14 06:31] LABS: ABS Basophils 0 10^3/ul (0-0.2); ABS Eosinophils 0 10^3/ul (0-0.6); ABS Lymphocytes 0.5 10^3/ul (1.0-4.8); ABS Monocytes 0.6 10^3/ul (0-0.8); ABS Neutrophils 6.5 10^3/ul (1.5-7.7); ABS Nucleated RBC 0 10^3/ul; Eosinophil % 0 % (0-6); Hematocrit 37 % (42-52); Hemoglobin 12.5 g/dl (14.0-18.0); Mean Corpuscular HGB Conc 34 g/dl (31-36); Mean Corpuscular Hemoglobin 32 pg (27-31); Mean Corpuscular Volume 93 fL (80-94); Mean Platelet Volume 8.1 um3 (7.4-10.4); Nucleated Red Blood Cells % 0.3; Platelet Count 136 10^3/ul (150-450); Red Blood Count 3.92 10^6/ul (4.00-5.40); Red Cell Distribution Width 19 % (10.5-15); White Blood Count 7.6 10^3/ul (3.5-10.8)
[2018-01-14 06:48] LABS: EGFR Non-African American 81.3 (>60)
[2018-01-14] MEDS ORDERED: cefTRIAXone(*) 1 GM in NS 0.9% 50 ML* 50 ML IVPB SCH (08:00)
[2018-01-14] MEDS ORDERED: Morphine TAB Extended Release (*) 15 MG TAB.ER PO PRN (08:17)
[2018-01-14] MEDS: Albuterol/Ipratropium NEB.SOL* Albuterol 2.5 MG/Ipratropium 0.5 MG 3 ML INH SCH ×3 (08:35→19:31)
[2018-01-14] MEDS: Polyethyl Glycol/Propylene Gly OPHTH.SOLN BOTH EYES SCH (09:21)
[2018-01-14] MEDS: Cefepime 1 GM in Dextrose(*) 1 GM/50 ML BAG IV SCH ×2 (09:21→22:36)
[2018-01-14] MEDS: metFORMIN* 500 MG TAB PO SCH ×2 (09:22→22:35)
[2018-01-14] MEDS: Clopidogrel TAB* 75 MG PO SCH (09:22)
[2018-01-14] MEDS: Atorvastatin* 80 MG TAB PO SCH (09:22)
[2018-01-14] MEDS: Pantoprazole TAB (NF) 40 MG TAB PO SCH (09:22)
[2018-01-14] MEDS: Potassium Chlor TAB* 20 MEQ TAB.ER PO SCH (09:22)
[2018-01-14] MEDS: Aspirin EC TAB* 81 MG TAB.EC PO SCH (09:23)
[2018-01-14] MEDS: Magnesium Oxide TAB* 400 MG PO SCH (09:23)
[2018-01-14] MEDS: Amiodarone TAB* 200 MG PO SCH (09:23)
[2018-01-14] MEDS: Gabapentin CAP(*) 300 MG PO SCH ×3 (09:23→22:34)
[2018-01-14] MEDS: Carvedilol TAB* 6.25 MG PO SCH ×2 (09:23→22:34)
[2018-01-14] MEDS: Nicotine PATCH 21 MG/24 HR* PATCH TRANSDERM SCH (09:23)
[2018-01-14] MEDS: Tiotropium CAP.INH* CAP.INH/18 MCG (USE ORDER SET !) INH SCH (09:25)
[2018-01-14] MEDS: Umeclidin/Vilant 62.5 MDI 62.5/25 mcg 14 INH ELLIPTA DEVICE INH SCH (09:25)
--- NOTE | 2018-01-14 13:27 | PN ---
Subjective Date of Service: 01/14/18 Interval History: HOSPITALIST PROGRESS NOTE Patient seen and examined at bedside. Care reviewed and d/w Susan Tian RN. He feels better today. Still has cough, but dyspnea is less intense. Requests coffee. Family History: Unchanged from Admission Social History: Unchanged from Admission Past Medical History: Unchanged from Admission Objective Active Medications: Hydrocodone Bitart/Acetaminophen ([place] 5-325 Tab*) 1 tab PO Q4H PRN PRN Reason: PAIN Albuterol (Ventolin Hfa Inhaler*) 2 puff INH Q4HR PRN PRN Reason: SOB/WHEEZING Albuterol/Ipratropium (Duoneb (Albuterol 2.5 Mg/Ipratropium 0.5 Mg)) 1 neb INH TID [facility] Last Admin: 01/14/18 08:35 Dose: 1 neb Amiodarone HCl (Cordarone Tab*) 200 mg PO DAILY [facility] Last Admin: 01/14/18 09:23 Dose: 200 mg Aspirin (Aspirin Ec Tab*) 81 mg PO QAM [facility] Last Admin: 01/14/18 09:23 Dose: 81 mg Atorvastatin Calcium (Lipitor*) 80 mg PO DAILY [facility] Last Admin: 01/14/18 09:22 Dose: 80 mg Carvedilol (Coreg Tab*) 12.5 mg PO BID [facility] Last Admin: 01/14/18 09:23 Dose: 12.5 mg Clopidogrel Bisulfate (Plavix Tab*) 75 mg PO QAM [facility] Last Admin: 01/14/18 09:22 Dose: 75 mg Fluticasone Propionate (Flonase Nasal [place] 50mcg*) 1 spray BOTH NARES BID [facility] Last Admin: 01/13/18 20:31 Dose: Not Given Gabapentin (Neurontin Cap(*)) 600 mg PO TID [facility] Last Admin: 01/14/18 09:23 Dose: 600 mg Heparin Sodium (Porcine) (Heparin Vial(*)) 5,000 units SUBCUT Q8HR [facility] Last Admin: 01/14/18 06:18 Dose: 5,000 units Heparin Sodium (Porcine) (Heparin Flush Port (Ivad)) 5 ml FLUSH DAILY [facility]; Protocol Cefepime HCl (Maxipime 1 Gm In Dextrose Duplex (*)) 1 gm in 50 mls @ 100 mls/ hr IV Q12H [facility] Last Admin: 01/14/18 09:21 Dose: 100 mls/hr Lidocaine (Lidoderm 5% Patch*) 1 patch TRANSDERM BEDTIME [facility] Last Admin: 01/13/18 20:28 Dose: 1 patch Lorazepam (Ativan Inj*) 1 mg IV PUSH Q6H PRN PRN Reason: ANXIETY Last Admin: 01/13/18 18:28 Dose: 1 mg Magnesium Hydroxide (Milk Of Magnesia Liq*) 30 ml PO Q6H PRN PRN Reason: CONSTIPATION Magnesium Oxide (Magox 400 Tab*) 400 mg PO QAM [facility] Last Admin: 01/14/18 09:23 Dose: 400 mg Metformin HCl (Glucophage*) 500 mg PO BID [facility] Last Admin: 01/14/18 09:22 Dose: 500 mg Morphine Sulfate (Ms Contin(*)) 15 mg PO TID PRN PRN Reason: PAIN Nicotine (Nicotine Patch 21 Mg/24 Hr*) 1 patch TRANSDERM DAILY [facility] Last Admin: 01/14/18 09:23 Dose: 1 patch Nitroglycerin (Nitroglycerin Tab 0.4 Mg*) 0.4 mg SL Q5M PRN PRN Reason: PAIN - CHEST Ondansetron HCl (Zofran Tab*) 4 mg PO Q6H PRN PRN Reason: NAUSEA/VOMITING Pantoprazole Sodium (Protonix Tab (Nf)) 40 mg PO DAILY [facility] Last Admin: 01/14/18 09:22 Dose: 40 mg Pharmacy Profile Note (Nicotine Patch Removal Note*) 1 note PATCH OFF 2100 [facility] Last Admin: 01/13/18 20:30 Dose: 1 note Polyethyl Glycol/Propylene Glycol (Lubricant Eye Drops) 1 drop BOTH EYES DAILY [facility] Last Admin: 01/14/18 09:21 Dose: 2 drop Potassium Chloride (Klor Con Er Tab*) 20 meq PO DAILY [facility] Last Admin: 01/14/18 09:22 Dose: 20 meq Tamsulosin HCl (Flomax Cap*) 0.4 mg PO BEDTIME [facility] Last Admin: 01/13/18 20:30 Dose: 0.4 mg Tiotropium [place] (Spiriva Cap.Inh*) 1 cap INH DAILY [facility] Last Admin: 01/14/18 09:25 Dose: 1 cap Torsemide (Demadex*) 40 mg PO DAILY [facility] Trazodone HCl (Desyrel Tab*) 100 mg PO BEDTIME [facility] Last Admin: 01/13/18 20:30 Dose: Not Given Umeclidinium/Vilanterol (Anoro 62.5/25 Ellipta Device (Nf)) 1 inh INH DAILY [facility] Last Admin: 01/14/18 09:25 Dose: Not Given Vital Signs - 8 hr 01/14/18 01/14/18 01/14/18 06:00 08:00 08:37 Temperature 98.3 F Pulse Rate 78 78 Respiratory 18 12 Rate Blood Pressure 128/71 (mmHg) O2 Sat by Pulse 94 92 Oximetry Oxygen Devices in Use Now: Nasal Cannula - 5 liters Appearance: Pleasant gentleman sitting up in bed in NAD. Eyes: No Scleral Icterus Ears/Nose/Mouth/Throat: Mucous Membranes Moist Neck: Trachea Midline Respiratory: Symmetrical Chest Expansion and Respiratory Effort, - - BS+ bilaterally diminished, scattered rhonchi, right base crackles Cardiovascular: RRR - Normal S1 and S2 Neurological: Alert and Oriented x 3, NL Muscle Strength and Tone Result Diagrams: 01/14/18 05:50 01/14/18 05:50 Assess/Plan/Problems-Billing Assessment: Mr Chen is a 67yo M with a complex PMH including COPD, CHF, TOI, type 2 DM, GERD, HTN, CAD s/p stent, lung small cell carcinoma s/p chemo and radiation, bladder CA, PVD (s/p left CEA, left femoral bypass), who presented to ED with c/ o dyspnea, found to have RLL pneumonia and COPD exacerbation. - Patient Problems (1) Acute hypercapnic respiratory failure Comment: - Secondary to pneumonia, CHF and COPD exacerbations. - Improved with BiPAP. (2) Pneumonia Comment: - He's just out of the 90-day window for HCAP, but considering his immunosuppression, will continue Cefepime, add doxycycline. - Cultures show no growth so far. - Check Legionella and pneumococcal Ags. (3) COPD exacerbation Comment: - Off BiPAP. - Continue bronchodilators, steroids, supplemental O2. (4) Systolic CHF Comment: - Stable. - Continue Torsemide. (5) CAD (coronary artery disease) Comment: - Stable. - Continue Aspirin, Plavix, Atorvastatin, Amiodarone, Coreg. (6) Diabetes Comment: - Hold Metformin while in the hospital. Monitor FS and cover with SS. (7) Small cell carcinoma of lung Comment: - Patient states he completed RT and chemo. (8) Bladder cancer Comment: - Patient states he's scheduled for BCG instillation with Dr. Ortiz next week. (9) DVT prophylaxis Comment: - SQ heparin. (10) Full code status Status and Disposition: Inpatient. Transfer to medical floor.
[2018-01-14] MEDS ORDERED: Dextrose 50% Syringe 50 ML* 25 GM/50 ML SYRINGE IV PUSH PRN (13:52)
[2018-01-14] MEDS ORDERED: NS 0.9% 250 ML* 250 ML ONE (14:38)
[2018-01-14] MEDS: methylPREDNISolone SOD 40 MG* 1 ML VIAL IV SCH (15:03)
[2018-01-14] MEDS: Torsemide TAB* 20 MG PO SCH (15:04)
[2018-01-14] MEDS: Fluticasone NASAL SPRAY 50MCG* 16 gm SPRAY BTL BOTH NARES SCH ×2 (15:05→22:44)
[2018-01-14] MEDS: DOXYcycline IV* 100 MG in NS 0.9% 250 ML* 250 ML IVPB SCH (17:23)
[2018-01-14] MEDS: Insulin LISPRO* 1 UNITS UNIT SUBCUT SCH ×2 (18:54→22:36)
[2018-01-14] MEDS ORDERED: Ibuprofen TAB* 400 MG PO ONE (22:18)
[2018-01-14] MEDS: Tamsulosin CAP* 0.4 MG PO SCH (22:35)
[2018-01-14] MEDS: traZODone TAB* 100 MG PO SCH (22:35)
[2018-01-14] MEDS: Lidocaine PATCH 5%* 1 PATCH TRANSDERM SCH (22:38)
[2018-01-14] MEDS: Nicotine Patch Removal NOTE PATCH OFF SCH (22:38)
[2018-01-15] MEDS: DOXYcycline IV* 100 MG in NS 0.9% 250 ML* 250 ML IVPB SCH ×2 (02:10→13:53)
[2018-01-15 05:58] LABS: ABS Basophils 0 10^3/ul (0-0.2); ABS Eosinophils 0 10^3/ul (0-0.6); ABS Lymphocytes 0.6 10^3/ul (1.0-4.8); ABS Monocytes 0.5 10^3/ul (0-0.8); ABS Neutrophils 5.4 10^3/ul (1.5-7.7); ABS Nucleated RBC 0 10^3/ul; Eosinophil % 0 % (0-6); Hematocrit 35 % (42-52); Hemoglobin 11.9 g/dl (14.0-18.0); Mean Corpuscular HGB Conc 34 g/dl (31-36); Mean Corpuscular Hemoglobin 32 pg (27-31); Mean Corpuscular Volume 93 fL (80-94); Mean Platelet Volume 7.9 um3 (7.4-10.4); Nucleated Red Blood Cells % 0.1; Platelet Count 132 10^3/ul (150-450); Red Blood Count 3.76 10^6/ul (4.00-5.40); Red Cell Distribution Width 19 % (10.5-15); White Blood Count 6.5 10^3/ul (3.5-10.8)
[2018-01-15] MEDS: Heparin VIAL(*) 5000 UNITS/ML VIAL (FIVE THOUSAND) SUBCUT SCH ×3 (06:01→21:15)
[2018-01-15 06:14] LABS: EGFR Non-African American 73.1 (>60)
--- NOTE | 2018-01-15 07:32 | PN ---
Subjective Date of Service: 01/15/18 Interval History: States that breathing is improving, currently denies shortness of breath . Denies chest pain or abd pain . Denies n/v/d. Blood pressure with mild hypotension today . patient reports that he recieved his blood pressure medications late last night. Family History: Unchanged from Admission Social History: Unchanged from Admission Past Medical History: Unchanged from Admission Objective Active Medications: Hydrocodone Bitart/Acetaminophen ([place] 5-325 Tab*) 1 tab PO Q4H PRN PRN Reason: PAIN Albuterol (Ventolin Hfa Inhaler*) 2 puff INH Q4HR PRN PRN Reason: SOB/WHEEZING Albuterol/Ipratropium (Duoneb (Albuterol 2.5 Mg/Ipratropium 0.5 Mg)) 1 neb INH TID [facility] Last Admin: 01/14/18 19:31 Dose: 1 neb Amiodarone HCl (Cordarone Tab*) 200 mg PO DAILY [facility] Last Admin: 01/14/18 09:23 Dose: 200 mg Aspirin (Aspirin Ec Tab*) 81 mg PO QAM [facility] Last Admin: 01/14/18 09:23 Dose: 81 mg Atorvastatin Calcium (Lipitor*) 80 mg PO DAILY [facility] Last Admin: 01/14/18 09:22 Dose: 80 mg Carvedilol (Coreg Tab*) 12.5 mg PO BID [facility] Last Admin: 01/14/18 22:34 Dose: 12.5 mg Clopidogrel Bisulfate (Plavix Tab*) 75 mg PO QAM [facility] Last Admin: 01/14/18 09:22 Dose: 75 mg Dextrose (D50w Syringe 50 Ml*) 12.5 gm IV PUSH .FOR FS < 60 - SS PRN PRN Reason: FS < 60 Fluticasone Propionate (Flonase Nasal [place] 50mcg*) 1 spray BOTH NARES BID [facility] Last Admin: 01/14/18 22:44 Dose: 1 spray Gabapentin (Neurontin Cap(*)) 600 mg PO TID [facility] Last Admin: 01/14/18 22:34 Dose: 600 mg Heparin Sodium (Porcine) (Heparin Vial(*)) 5,000 units SUBCUT Q8HR [facility] Last Admin: 01/15/18 06:01 Dose: 5,000 units Heparin Sodium (Porcine) (Heparin Flush Port (Ivad)) 5 ml FLUSH DAILY [facility]; Protocol Last Admin: 01/14/18 14:16 Dose: Not Given Cefepime HCl (Maxipime 1 Gm In Dextrose Duplex (*)) 1 gm in 50 mls @ 100 mls/ hr IV Q12H [facility] Last Admin: 01/14/18 22:36 Dose: 100 mls/hr Doxycycline Hyclate 100 mg/ (Sodium Chloride) 250 mls @ 250 mls/hr IVPB Q12H [facility] Last Admin: 01/15/18 02:10 Dose: 250 mls/hr Insulin Human Lispro (Humalog*) 0 units SUBCUT ACHS [facility]; Protocol Last Admin: 01/14/18 22:36 Dose: 4 unit Lidocaine (Lidoderm 5% Patch*) 1 patch TRANSDERM BEDTIME [facility] Last Admin: 01/14/18 22:38 Dose: Not Given Lorazepam (Ativan Inj*) 1 mg IV PUSH Q6H PRN PRN Reason: ANXIETY Last Admin: 01/13/18 18:28 Dose: 1 mg Magnesium Hydroxide (Milk Of Magnesia Liq*) 30 ml PO Q6H PRN PRN Reason: CONSTIPATION Magnesium Oxide (Magox 400 Tab*) 400 mg PO QAM [facility] Last Admin: 01/14/18 09:23 Dose: 400 mg Metformin HCl (Glucophage*) 500 mg PO BID [facility] Last Admin: 01/14/18 22:35 Dose: 500 mg Methylprednisolone Sodium Succinate (Solu-Medrol 40 Mg) 40 mg IV DAILY [facility] Last Admin: 01/14/18 15:03 Dose: 40 mg Morphine Sulfate (Ms Contin(*)) 15 mg PO TID PRN PRN Reason: PAIN Last Admin: 01/14/18 22:43 Dose: 15 mg Nicotine (Nicotine Patch 21 Mg/24 Hr*) 1 patch TRANSDERM DAILY [facility] Last Admin: 01/14/18 09:23 Dose: 1 patch Nitroglycerin (Nitroglycerin Tab 0.4 Mg*) 0.4 mg SL Q5M PRN PRN Reason: PAIN - CHEST Ondansetron HCl (Zofran Tab*) 4 mg PO Q6H PRN PRN Reason: NAUSEA/VOMITING Pantoprazole Sodium (Protonix Tab (Nf)) 40 mg PO DAILY [facility] Last Admin: 01/14/18 09:22 Dose: 40 mg Pharmacy Profile Note (Nicotine Patch Removal Note*) 1 note PATCH OFF 2099 [facility] Last Admin: 01/14/18 22:38 Dose: Not Given Polyethyl Glycol/Propylene Glycol (Lubricant Eye Drops) 1 drop BOTH EYES DAILY [facility] Last Admin: 01/14/18 09:21 Dose: 2 drop Potassium Chloride (Klor Con Er Tab*) 20 meq PO DAILY [facility] Last Admin: 01/14/18 09:22 Dose: 20 meq Tamsulosin HCl (Flomax Cap*) 0.4 mg PO BEDTIME [facility] Last Admin: 01/14/18 22:35 Dose: 0.4 mg Tiotropium [place] (Spiriva Cap.Inh*) 1 cap INH DAILY [facility] Last Admin: 01/14/18 09:25 Dose: 1 cap Torsemide (Demadex*) 40 mg PO DAILY [facility] Last Admin: 01/14/18 15:04 Dose: 40 mg Trazodone HCl (Desyrel Tab*) 100 mg PO BEDTIME [facility] Last Admin: 01/14/18 22:35 Dose: 100 mg Umeclidinium/Vilanterol (Anoro 62.5/25 Ellipta Device (Nf)) 1 inh INH DAILY [facility] Last Admin: 01/14/18 09:25 Dose: Not Given Vital Signs - 8 hr 01/15/18 01/15/18 01:12 03:06 Temperature 97.5 F Pulse Rate 67 Respiratory 18 20 Rate Blood Pressure 108/46 (mmHg) O2 Sat by Pulse 99 Oximetry Oxygen Devices in Use Now: High Flow Nasal Cannula Result Diagrams: 01/15/18 05:40 01/15/18 05:40 Microbiology and Other Data: Microbiology 01/13/18 09:23 Aerobic Blood Culture - Final Blood Venous Not Reportable Anaerobic Blood Culture - Final Not Reportable Blood Culture - Preliminary No Growth Day 1 01/13/18 12:45 Nasal Screen MRSA (PCR) - Final Nasal Mrsa Not Detected Assess/Plan/Problems-Billing Assessment: Mr Chen is a 67yo M with a complex PMH including COPD, CHF, TOI, type 2 DM, GERD, HTN, CAD s/p stent, lung small cell carcinoma s/p chemo and radiation, bladder CA, PVD (s/p left CEA, left femoral bypass), who presented to ED with c/ o dyspnea, found to have RLL pneumonia and COPD exacerbation. - Patient Problems (1) Acute hypercapnic respiratory failure Current Visit: Yes Status: Acute Code(s): J96.02 - ACUTE RESPIRATORY FAILURE WITH HYPERCAPNIA SNOMED Code(s): 187215345 Comment: - Secondary to pneumonia, CHF and COPD exacerbations. - Improved today - using nasal cannula O2 (2) Pneumonia Current Visit: Yes Status: Acute Code(s): J18.9 - PNEUMONIA, UNSPECIFIED ORGANISM SNOMED Code(s): 076088234 Comment: - He's just out of the 90-day window for HCAP, but considering his immunosuppression, will continue Cefepime, add doxycycline. - Cultures show no growth so far. - Legionella and pneumococcal Ags- negative. (3) COPD exacerbation Current Visit: Yes Status: Acute Code(s): J44.1 - CHRONIC OBSTRUCTIVE PULMONARY DISEASE W (ACUTE) EXACERBATION SNOMED Code(s): 985779570 Comment: - Off BiPAP. - Continue bronchodilators, steroids, supplemental O2. (4) Bladder cancer Current Visit: Yes Status: Acute Comment: - Patient states he's scheduled for BCG instillation with Dr. Ortiz next week. (5) Systolic CHF Current Visit: Yes Status: Acute Code(s): I50.20 - UNSPECIFIED SYSTOLIC ( CONGESTIVE) HEART FAILURE SNOMED Code(s): 626940205 Comment: - Stable. - Continue Torsemide. (6) CAD (coronary artery disease) Current Visit: Yes Status: Chronic Code(s): I25.10 - ATHSCL HEART DISEASE OF [place] CORONARY ARTERY W/O ANG PCTRS SNOMED Code(s): 24766808 Comment: - Stable. - Continue Aspirin, Plavix, Atorvastatin, Amiodarone, Coreg. (7) Diabetes Current Visit: Yes Status: Chronic Code(s): E11.9 - TYPE 2 DIABETES MELLITUS WITHOUT COMPLICATIONS SNOMED Code(s): 75552564 Comment: - Hold Metformin while in the hospital. Monitor FS and cover with SS. (8) DVT prophylaxis Current Visit: Yes Status: Acute Code(s): QHW7147 - SNOMED Code(s): 303289022 Comment: - SQ heparin. (9) Full code status Current Visit: Yes Status: Acute Code(s): Z78.9 - OTHER SPECIFIED HEALTH STATUS SNOMED Code(s): 217668006 Status and Disposition: Inpatient. possible discharge in the AM
[2018-01-15] MEDS: Insulin LISPRO* 1 UNITS UNIT SUBCUT SCH ×4 (07:37→21:14)
[2018-01-15] MEDS: Albuterol/Ipratropium NEB.SOL* Albuterol 2.5 MG/Ipratropium 0.5 MG 3 ML INH SCH ×3 (07:43→19:41)
[2018-01-15] MEDS: Tiotropium CAP.INH* CAP.INH/18 MCG (USE ORDER SET !) INH SCH (07:44)
[2018-01-15] MEDS: Umeclidin/Vilant 62.5 MDI 62.5/25 mcg 14 INH ELLIPTA DEVICE INH SCH (07:46)
[2018-01-15] MEDS: Nicotine PATCH 21 MG/24 HR* PATCH TRANSDERM SCH (09:58)
[2018-01-15] MEDS: Gabapentin CAP(*) 300 MG PO SCH ×3 (10:01→21:12)
[2018-01-15] MEDS: Clopidogrel TAB* 75 MG PO SCH (10:01)
[2018-01-15] MEDS: metFORMIN* 500 MG TAB PO SCH ×2 (10:01→21:13)
[2018-01-15] MEDS: Aspirin EC TAB* 81 MG TAB.EC PO SCH (10:01)
[2018-01-15] MEDS: Cefepime 1 GM in Dextrose(*) 1 GM/50 ML BAG IV SCH ×2 (10:01→21:14)
[2018-01-15] MEDS: Potassium Chlor TAB* 20 MEQ TAB.ER PO SCH (10:01)
[2018-01-15] MEDS: Magnesium Oxide TAB* 400 MG PO SCH (10:01)
[2018-01-15] MEDS: Atorvastatin* 80 MG TAB PO SCH (10:01)
[2018-01-15] MEDS: Amiodarone TAB* 200 MG PO SCH (10:01)
[2018-01-15] MEDS: Torsemide TAB* 20 MG PO SCH (10:01)
[2018-01-15] MEDS: Pantoprazole TAB (NF) 40 MG TAB PO SCH (10:02)
[2018-01-15] MEDS: Polyethyl Glycol/Propylene Gly OPHTH.SOLN BOTH EYES SCH (10:02)
[2018-01-15] MEDS: Fluticasone NASAL SPRAY 50MCG* 16 gm SPRAY BTL BOTH NARES SCH ×2 (10:02→21:14)
[2018-01-15] MEDS: methylPREDNISolone SOD 40 MG* 1 ML VIAL IV SCH (10:02)
[2018-01-15] MEDS: Carvedilol TAB* 6.25 MG PO SCH ×2 (10:12→21:13)
[2018-01-15] MEDS: traZODone TAB* 100 MG PO SCH (21:12)
[2018-01-15] MEDS: Tamsulosin CAP* 0.4 MG PO SCH (21:13)
[2018-01-15] MEDS: Lidocaine PATCH 5%* 1 PATCH TRANSDERM SCH (21:14)
[2018-01-15] MEDS: Nicotine Patch Removal NOTE PATCH OFF SCH (21:15)
[2018-01-16] MEDS: DOXYcycline IV* 100 MG in NS 0.9% 250 ML* 250 ML IVPB SCH ×2 (01:48→14:28)
[2018-01-16] MEDS: Heparin VIAL(*) 5000 UNITS/ML VIAL (FIVE THOUSAND) SUBCUT SCH ×2 (05:40→14:11)
[2018-01-16] MEDS: Tiotropium CAP.INH* CAP.INH/18 MCG (USE ORDER SET !) INH SCH (07:45)
[2018-01-16] MEDS: Albuterol/Ipratropium NEB.SOL* Albuterol 2.5 MG/Ipratropium 0.5 MG 3 ML INH SCH ×2 (07:45→14:08)
[2018-01-16] MEDS: Umeclidin/Vilant 62.5 MDI 62.5/25 mcg 14 INH ELLIPTA DEVICE INH SCH (07:58)
[2018-01-16] MEDS: Insulin LISPRO* 1 UNITS UNIT SUBCUT SCH ×2 (08:15→12:52)
[2018-01-16] MEDS: Nicotine PATCH 21 MG/24 HR* PATCH TRANSDERM SCH (08:36)
[2018-01-16] MEDS: Cefepime 1 GM in Dextrose(*) 1 GM/50 ML BAG IV SCH (08:36)
[2018-01-16] MEDS: Pantoprazole TAB (NF) 40 MG TAB PO SCH (08:37)
[2018-01-16] MEDS: Polyethyl Glycol/Propylene Gly OPHTH.SOLN BOTH EYES SCH (08:37)
[2018-01-16] MEDS: Fluticasone NASAL SPRAY 50MCG* 16 gm SPRAY BTL BOTH NARES SCH (08:37)
[2018-01-16] MEDS: Torsemide TAB* 20 MG PO SCH (08:37)
[2018-01-16] MEDS: Atorvastatin* 80 MG TAB PO SCH (08:37)
[2018-01-16] MEDS: methylPREDNISolone SOD 40 MG* 1 ML VIAL IV SCH (08:37)
[2018-01-16] MEDS: Clopidogrel TAB* 75 MG PO SCH (08:38)
[2018-01-16] MEDS: Amiodarone TAB* 200 MG PO SCH (08:38)
[2018-01-16] MEDS: metFORMIN* 500 MG TAB PO SCH (08:38)
[2018-01-16] MEDS: Carvedilol TAB* 6.25 MG PO SCH (08:38)
[2018-01-16] MEDS: Potassium Chlor TAB* 20 MEQ TAB.ER PO SCH (08:38)
[2018-01-16] MEDS: Aspirin EC TAB* 81 MG TAB.EC PO SCH (08:39)
[2018-01-16] MEDS: Magnesium Oxide TAB* 400 MG PO SCH (08:40)
[2018-01-16] MEDS: Gabapentin CAP(*) 300 MG PO SCH ×2 (08:40→14:13)
[2018-01-16 11:03] LABS: Hematocrit 40 % (42-52); Hemoglobin 13.5 g/dl (14.0-18.0); Mean Corpuscular HGB Conc 34 g/dl (31-36); Mean Corpuscular Hemoglobin 31 pg (27-31); Mean Corpuscular Volume 92 fL (80-94); Platelet Count 155 10^3/ul (150-450); Red Cell Distribution Width 19 % (10.5-15); White Blood Count 8.5 10^3/ul (3.5-10.8)
[2018-01-16 11:19] LABS: EGFR Non-African American 73.1 (>60)
[2018-01-16 11:41] VITALS: BP 106/60
[2018-01-16] MEDS ORDERED: Ibuprofen TAB* 400 MG PO ONE (11:47)
[2018-01-16 12:00] LABS: ABS Basophils 0 10^3/ul (0-0.2); ABS Eosinophils 0 10^3/ul (0-0.6); ABS Lymphocytes 0.5 10^3/ul (1.0-4.8); ABS Monocytes 0.6 10^3/ul (0-0.8); ABS Neutrophils 7.3 10^3/ul (1.5-7.7); ABS Nucleated RBC 0 10^3/ul; Eosinophil % 0.5 % (0-6); Lymphocyte % 5.9 % (25-47); Nucleated Red Blood Cells % 0
--- NOTE | 2018-01-16 12:47 | DCNOTE ---
Subjective Date of Service: 01/16/18 Interval History: Patient reports he feels well enough to go home today. He denies SOB and reports he is ambulating around the unit and feels well. His O2 sat on RA while ambulating is 93%. He denies wheezing. Some coughing but reports this is better. No fevers or chills. Reports good appetite. Discussed tobacco cessation with pt and he is not interested in quitting. Family History: Unchanged from Admission Social History: Unchanged from Admission Past Medical History: Unchanged from Admission Objective Active Medications: Hydrocodone Bitart/Acetaminophen ([place] 5-325 Tab*) 1 tab PO Q4H PRN PRN Reason: PAIN Albuterol (Ventolin Hfa Inhaler*) 2 puff INH Q4HR PRN PRN Reason: SOB/WHEEZING Albuterol/Ipratropium (Duoneb (Albuterol 2.5 Mg/Ipratropium 0.5 Mg)) 1 neb INH TID [facility] Last Admin: 01/16/18 07:45 Dose: 1 neb Amiodarone HCl (Cordarone Tab*) 200 mg PO DAILY [facility] Last Admin: 01/16/18 08:38 Dose: 200 mg Aspirin (Aspirin Ec Tab*) 81 mg PO QAM [facility] Last Admin: 01/16/18 08:39 Dose: 81 mg Atorvastatin Calcium (Lipitor*) 80 mg PO DAILY [facility] Last Admin: 01/16/18 08:37 Dose: 80 mg Carvedilol (Coreg Tab*) 12.5 mg PO BID [facility] Last Admin: 01/16/18 08:38 Dose: 12.5 mg Clopidogrel Bisulfate (Plavix Tab*) 75 mg PO QAM [facility] Last Admin: 01/16/18 08:38 Dose: 75 mg Dextrose (D50w Syringe 50 Ml*) 12.5 gm IV PUSH .FOR FS < 60 - SS PRN PRN Reason: FS < 60 Fluticasone Propionate (Flonase Nasal [place] 50mcg*) 1 spray BOTH NARES BID [facility] Last Admin: 01/16/18 08:37 Dose: 1 spray Gabapentin (Neurontin Cap(*)) 600 mg PO TID [facility] Last Admin: 01/16/18 08:40 Dose: 600 mg Heparin Sodium (Porcine) (Heparin Vial(*)) 5,000 units SUBCUT Q8HR [facility] Last Admin: 01/16/18 05:40 Dose: 5,000 units Heparin Sodium (Porcine) (Heparin Flush Port (Ivad)) 5 ml FLUSH DAILY [facility]; Protocol Last Admin: 01/16/18 03:13 Dose: 5 ml Cefepime HCl (Maxipime 1 Gm In Dextrose Duplex (*)) 1 gm in 50 mls @ 100 mls/ hr IV Q12H [facility] Last Admin: 01/16/18 08:36 Dose: 100 mls/hr Doxycycline Hyclate 100 mg/ (Sodium Chloride) 250 mls @ 250 mls/hr IVPB Q12H [facility] Last Admin: 01/16/18 01:48 Dose: 250 mls/hr Insulin Human Lispro (Humalog*) 0 units SUBCUT ACHS [facility]; Protocol Last Admin: 01/16/18 08:15 Dose: Not Given Lidocaine (Lidoderm 5% Patch*) 1 patch TRANSDERM BEDTIME [facility] Last Admin: 01/15/18 21:14 Dose: 1 patch Lorazepam (Ativan Inj*) 1 mg IV PUSH Q6H PRN PRN Reason: ANXIETY Last Admin: 01/13/18 18:28 Dose: 1 mg Magnesium Hydroxide (Milk Of [place] Liq*) 30 ml PO Q6H PRN PRN Reason: CONSTIPATION Magnesium Oxide (Magox 400 Tab*) 400 mg PO QAM [facility] Last Admin: 01/16/18 08:40 Dose: 400 mg Metformin HCl (Glucophage*) 500 mg PO BID [facility] Last Admin: 01/16/18 08:38 Dose: 500 mg Methylprednisolone Sodium Succinate (Solu-Medrol 40 Mg) 40 mg IV DAILY [facility] Last Admin: 01/16/18 08:37 Dose: 40 mg Morphine Sulfate (Ms Contin(*)) 15 mg PO TID PRN PRN Reason: PAIN Last Admin: 01/14/18 22:43 Dose: 15 mg Nicotine (Nicotine Patch 21 Mg/24 Hr*) 1 patch TRANSDERM DAILY [facility] Last Admin: 01/16/18 08:36 Dose: 1 patch Nitroglycerin (Nitroglycerin Tab 0.4 Mg*) 0.4 mg SL Q5M PRN PRN Reason: PAIN - CHEST Ondansetron HCl (Zofran Tab*) 4 mg PO Q6H PRN PRN Reason: NAUSEA/VOMITING Pantoprazole Sodium (Protonix Tab (Nf)) 40 mg PO DAILY [facility] Last Admin: 01/16/18 08:37 Dose: 40 mg Pharmacy Profile Note (Nicotine Patch Removal Note*) 1 note PATCH OFF 2100 [facility] Last Admin: 01/15/18 21:15 Dose: Not Given Polyethyl Glycol/Propylene Glycol (Lubricant Eye Drops) 1 drop BOTH EYES DAILY [facility] Last Admin: 01/16/18 08:37 Dose: 1 drop Potassium Chloride (Klor Con Er Tab*) 20 meq PO DAILY [facility] Last Admin: 01/16/18 08:38 Dose: 20 meq Tamsulosin HCl (Flomax Cap*) 0.4 mg PO BEDTIME [facility] Last Admin: 01/15/18 21:13 Dose: 0.4 mg Tiotropium [place] (Spiriva Cap.Inh*) 1 cap INH DAILY [facility] Last Admin: 01/16/18 07:45 Dose: 1 cap Torsemide (Demadex*) 40 mg PO DAILY [facility] Last Admin: 01/16/18 08:37 Dose: 40 mg Trazodone HCl (Desyrel Tab*) 100 mg PO BEDTIME [facility] Last Admin: 01/15/18 21:12 Dose: 100 mg Umeclidinium/Vilanterol (Anoro 62.5/25 Ellipta Device (Nf)) 1 inh INH DAILY [facility] Last Admin: 01/16/18 07:58 Dose: Not Given Vital Signs - 8 hr 01/16/18 01/16/18 01/16/18 07:47 07:57 08:00 Temperature 97.6 F Pulse Rate 68 67 Respiratory 18 20 20 Rate Blood Pressure 116/62 (mmHg) O2 Sat by Pulse 97 93 Oximetry 01/16/18 01/16/18 08:40 11:16 Temperature 98.0 F Pulse Rate 84 Respiratory 18 20 Rate Blood Pressure 106/60 (mmHg) O2 Sat by Pulse 93 Oximetry Oxygen Devices in Use Now: Nasal Cannula Appearance: 67 yo chronically ill male A+O x3 in NAD Eyes: No Scleral Icterus, PERRLA Ears/Nose/Mouth/Throat: NL Teeth, Lips, Gums, Mucous Membranes Moist Respiratory: Symmetrical Chest Expansion and Respiratory Effort, Clear to Auscultation, - - Good aeration throughout Cardiovascular: NL Sounds; No Murmurs; No JVD, RRR, No Edema Abdominal: NL Sounds; No Tenderness; No Distention Extremities: No Edema, No Clubbing, Cyanosis Skin: No Rash or Ulcers, No Nodules or Sclerosis Neurological: Alert and Oriented x 3, NL Sensation, NL Gait, NL Muscle Strength and Tone Lines/Tubes/Other Access: Clean, Dry and Intact Peripheral IV Nutrition: Taking PO's Result Diagrams: 01/16/18 10:50 01/16/18 10:50 Microbiology and Other Data: Microbiology 01/13/18 09:23 Aerobic Blood Culture - Final Blood Venous Not Reportable Anaerobic Blood Culture - Final Not Reportable Blood Culture - Preliminary No Growth Day 1 01/13/18 12:45 Nasal Screen MRSA (PCR) - Final Nasal Mrsa Not Detected Assess/Plan/Problems-Billing Assessment: Mr Chen is a 67yo M with a complex PMH including COPD, CHF, TOI, type 2 DM, GERD, HTN, CAD s/p stent, lung small cell carcinoma s/p chemo and radiation, bladder CA, PVD (s/p left CEA, left femoral bypass), who presented to ED with c/ o dyspnea, found to have RLL pneumonia and COPD exacerbation. - Patient Problems (1) Acute hypercapnic respiratory failure Comment: - Pt reports much clinically improvement. - Secondary to pneumonia, CHF and COPD exacerbations. - Ambulated off oxygen with O2 sat 94% - he did drop down to 87% - he has prn O2 at home (2) Pneumonia Comment: - He's just out of the 90-day window for HCAP, but considering his immunosuppression, will Plan to send home on Vantin and doxycycline. - Cultures show no growth so far. - Legionella and pneumococcal Ags- negative. (3) COPD exacerbation Comment: - Off BiPAP. - Continue bronchodilators, steroids, supplemental O2. (4) Bladder cancer Comment: - Patient states he's scheduled for BCG instillation with Dr. Ortiz next week. (5) Systolic CHF Comment: - Stable. - Continue Torsemide. (6) CAD (coronary artery disease) Comment: - Stable. - Continue Aspirin, Plavix, Atorvastatin, Amiodarone, Coreg. (7) Diabetes Comment: - Hold Metformin while in the hospital - restart on DC. Monitor FS and cover with SS. Status and Disposition: Inpatient. plan for DC home today
--- NOTE | 2018-01-16 20:57 | DS ---
CC: Dr. Mcdermott * DISCHARGE SUMMARY: DATE OF ADMISSION: 01/13/18 DATE OF DISCHARGE: 01/16/18 PROVIDER: Alton Pagan NP ATTENDING PHYSICIAN: Dr. Chavira * (report dictated by Alton Pagan NP) PRIMARY CARE PROVIDER: Dr. Mcdermott DISCHARGE DIAGNOSES: 1. Community-acquired pneumonia. 2. Hypercarbic respiratory failure. 3. Chronic obstructive pulmonary disease exacerbation. 4. Tobacco abuse. SECONDARY DIAGNOSES: 1. Bladder and lung cancer currently on chemo, recently underwent radiation. 2. Chronic obstructive pulmonary disease. 3. Congestive heart failure. 4. Current tobacco abuse. 5. Obstructive sleep apnea. 6. Type 2 diabetes. 7. Current hypertension. 8. Coronary artery disease status post stenting. 9. Chronic back pain. HISTORY OF PRESENT ILLNESS AND HOSPITAL COURSE: Please see history and physical by Megha Baker NP, for full admission details. In summary, this is a 67- year-old male with a complex past medical history as stated above , who presented to the emergency department on 01/13/18 with complaint of shortness of breath and cough x3 days. The patient also reports some increased congestion and reported he had been using albuterol treatments at home but did not relieve his symptoms. In the emergency department, the patient appeared lethargic and was noted to be tripoding. A blood gas was performed in the emergency department which showed the patient to be hypercarbic respiratory failure. The patient was admitted to the hospital service. Initially, he was placed on BiPAP and turned around very quickly. He was found to have a right lower lobe pneumonia and thought to have a COPD exacerbation. The patient approximately 90 days ago, he had antibiotics, so he is just out of the window for HCAP and considering his immunosuppression, he was started on cefepime and doxycycline. Blood cultures had no growth. Legionella and pneumococcal urine antigens were negative. He was continued on bronchodilators, steroids, and supplemental O2. Throughout hospitalization, he is improved daily. Today, on evaluation, the patient is asking to go home. He has been ambulating in his room and in the hallways on room air maintaining O2 sat of 93%, 94% which is his baseline. The patient denies shortness of breath or wheezing. We discussed with the patient to strongly consider tobacco cessation. The patient is not interested in quitting; however, he was strongly emphasized at least for the next 1 to 2 weeks to cut back his tobacco use. In regards to the patient's systolic congestive heart failure, he was continued on the torsemide and he remains euvolemic. The patient is stable for discharge to home and followup with his primary care provider. DISCHARGE MEDICATIONS: 1. Milk of magnesia 30 mL p.o. q.6 hours p.r.n. 2. Trazodone 100 mg p.o. bedtime. 3. Torsemide 40 mg p.o. daily. 4. Spiriva 1 cap INH daily. 5. Flomax 0.5 mg p.o. at bedtime. 6. Albuterol ProAir 2 puffs INH q.4 hours p.r.n. 7. Percocet 5/325 mg 1 to 2 tabs p.o. q.4 hours p.r.n., max daily dose 8 tabs. 8. Potassium chloride 20 mEq p.o. daily. 9. Zofran 4 mg q.6 hours p.r.n. 10. Prilosec 20 mg p.o. daily. 11. Nitroglycerin 0.4 mg sublingual q.5 minutes p.r.n. 12. Morphine tab extended 50 mg p.o. t.i.d. p.r.n. 13. Metformin 500 mg p.o. b.i.d. 14. Magnesium oxide 40 mg p.o. q.a.m. 15. Lidocaine patch 1 patch transdermally bedtime. 16. DuoNeb t.i.d. 17. Ibuprofen 800 mg p.o. b.i.d. 19. Gabapentin 600 mg p.o. t.i.d. 20. Fluticasone 1 spray both nares b.i.d. 21. Plavix 75 mg p.o. q.a.m. 22. Coreg 12.5 mg p.o. b.i.d. 23. Lipitor 80 mg p.o. daily. 24. Aspirin 81 mg p.o. daily. 25. Amiodarone 200 mg p.o. daily. New medications: 1. Doxycycline 100 mg p.o. b.i.d. x12 days. 2. Vantin 200 mg p.o. b.i.d. x12 days. 3. Prednisone 40 mg p.o. daily x5 days. DISCHARGE PLAN: 1. Followup with Dr. Mcdermott within 3 to 5 days. 2. Smoking cessation was encouraged. 3. I discussed with the patient to return to emergency department with any worsening or concerning symptoms. 4. The patient is stable for discharge to home. He is ambulating independently. He wears home O2 p.r.n. and reports that he has a pulse oximetry. This was discussed with the patient. He has O2 sat at his baseline which is 92% to 93%. TIME SPENT: Approximately 60 minutes were spent on this discharge. ALTON PAGAN, CARDIOPULMONARY TECHNICIAN [id number]/[facility] #: [id number] BRY
== END 2018-01-16 14:49 | disposition home or self-care (01) | DRG 193 ==
LOC: ED 09:01 → OBSVTOIN 10:55 → MED 10:55 → ICU 12:13 → MED 01-14 13:27
PROVIDERS: ADMIT Internal Medicine; ATTEND Internal Medicine
PROC: 5A09357 Assistance with Respiratory Ventilation, Less than 24 Consecutive Hours, Continuous Positive Airway Pressure (ICD-10-PCS; principal; 2018-01-13)
DX: J18.9 Pneumonia, unspecified organism (principal); J96.02 Acute respiratory failure with hypercapnia; J44.0 Chronic obstructive pulmonary disease with (acute) lower respiratory infection; C34.90 Malignant neoplasm of unspecified part of unspecified bronchus or lung; I50.22 Chronic systolic (congestive) heart failure; J44.1 Chronic obstructive pulmonary disease with (acute) exacerbation; I50.9 Heart failure, unspecified; G47.33 Obstructive sleep apnea (adult) (pediatric); E11.9 Type 2 diabetes mellitus without complications; K21.9 Gastro-esophageal reflux disease without esophagitis; I11.0 Hypertensive heart disease with heart failure; I25.10 Atherosclerotic heart disease of native coronary artery without angina pectoris; G89.29 Other chronic pain; M54.9 Dorsalgia, unspecified; C67.9 Malignant neoplasm of bladder, unspecified; Z96.641 Presence of right artificial hip joint; E78.00 Pure hypercholesterolemia, unspecified; E11.51 Type 2 diabetes mellitus with diabetic peripheral angiopathy without gangrene; K57.90 Diverticulosis of intestine, part unspecified, without perforation or abscess without bleeding; N40.0 Benign prostatic hyperplasia without lower urinary tract symptoms; M19.90 Unspecified osteoarthritis, unspecified site; N20.0 Calculus of kidney; M41.9 Scoliosis, unspecified; E11.36 Type 2 diabetes mellitus with diabetic cataract; F41.9 Anxiety disorder, unspecified; I95.9 Hypotension, unspecified; F17.200 Nicotine dependence, unspecified, uncomplicated; Z92.3 Personal history of irradiation; Z95.5 Presence of coronary angioplasty implant and graft; Z95.810 Presence of automatic (implantable) cardiac defibrillator; Z88.8 Allergy status to other drugs, medicaments and biological substances; Z82.49 Family history of ischemic heart disease and other diseases of the circulatory system; Z72.89 Other problems related to lifestyle; Z87.01 Personal history of pneumonia (recurrent); Z79.82 Long term (current) use of aspirin; Z79.02 Long term (current) use of antithrombotics/antiplatelets; Z79.84 Long term (current) use of oral hypoglycemic drugs
CPT/HCPCS: 36415; 36600; 71045; 80048; 80053; 82803; 83605; 83880; 84484; 85025; 87040; 87641; 87899; 93005; 94640; 94660; 99284; A9270-GY; J0692; J0696; J1642; J1644; J2060; J2920; J2930

== ENCOUNTER 2018-02-22 13:59 | Day surgery (SDC) | payer MEDICARE, MEDICAID, OTHER ==
--- NOTE | 2018-02-19 12:25 | HP ---
CC: Dr. Mcdermott * ADMITTING HISTORY AND PHYSICAL: DATE OF ADMISSION: 02/22/18 ADMITTING DIAGNOSES: 1. Recurrent bladder cancer. 2. Gross hematuria. PLANNED PROCEDURE: Transurethral resection of bladder tumors, possible bilateral retrograde pyelograms. SURGEON: Dr. Ortiz. HISTORY OF PRESENT ILLNESS: Dima Chen Jr. is a 68-year-old chronic smoker with a history of recurrent bladder cancer. He had previously been scheduled for transurethral resection of bladder tumors, but this had to be canceled due to admission for pneumonia. He now has started having gross hematuria with passage of clots and is being brought in for transurethral resection of bladder tumors. PAST MEDICAL HISTORY: Significant for: 1. COPD. 2. Chronic smoking. 3. Congestive heart failure. 4. Type 2 diabetes. 5. Obstructive sleep apnea. 6. Coronary artery disease. 7. Hypertension. 8. Recent pneumonia. MEDICATIONS ON ADMISSION: 1. Torsemide 40 mg daily. 2. Spiriva 1 cap inhaled daily. 3. Flomax 0.4 mg daily. 4. Albuterol 2 puffs q.4 hours p.r.n. 5. Potassium chloride 20 mEq daily. 6. Prilosec 20 mg daily. 7. Morphine extended release 50 mg p.o. t.i.d. p.r.n. 8. Metformin 500 mg twice a day. 9. Lidocaine patch 1 patch transdermally at bedtime. 10. Gabapentin 600 mg t.i.d. 11. Ibuprofen 800 mg twice a day. 12. Plavix 75 mg a day. 13. Coreg 12.5 mg twice a day. 14. Aspirin 81 mg a day. 15. Amiodarone 200 mg a day. 16. Lipitor 80 mg a day. 17. Trazodone 100 mg p.o. at bedtime. REVIEW OF SYSTEMS: He has chronic shortness of breath and uses oxygen on a p.r.n. basis. He is still continuing to smoke and overall has extensive medical problems and is not completely compliant with his treatment regimen. PHYSICAL EXAMINATION GENERAL: Reveals a pleasant elderly gentleman. VITAL SIGNS: Blood pressure is 140/80; pulse is 80 per minute, regular; respirations 20 per minute. LUNGS: Clear bilaterally with scattered rhonchi. CARDIOVASCULAR: S1, S2. No murmurs. ABDOMEN: Soft without masses. IMPRESSION: A 68-year-old gentleman with multiple medical issues and continued longstanding smoking history with bladder tumors and who is now having persistent gross hematuria. Planned procedure is transurethral resection of bladder tumors, possible bilateral retrogrades. [id number]/[facility] #: [id number] MTDD
[~2018-02-22 13:59] MED LIST changes: +Famotidine IV* 10 MG/ML 2 ML (20 mg) IV ONE
[2018-02-22] MEDS ORDERED: Famotidine IV* 10 MG/ML 2 ML (20 mg) ONE (14:22)
[2018-02-22] MEDS ORDERED: cefTRIAXone(*) 1 GM ADVAN/BAG ONE (14:23)
[2018-02-22] MEDS ORDERED: fentaNYL* 50 MCG/ML 2 ML VIAL (100 MCG VIAL) ONE (15:47)
[2018-02-22] MEDS ORDERED: Midazolam* 1 MG/ML 5 ML VIAL (5 MG) ONE (15:47)
[2018-02-22] MEDS ORDERED: Acetaminophen TAB* 325 MG PO PRN (16:20)
[2018-02-22] MEDS ORDERED: DiMENhydriNATE IV* 50 MG/ML VIAL IV PUSH PRN (16:20)
[2018-02-22] MEDS ORDERED: Iohexol 180 (CONTRAST) 10 ML SDV IV ONE (16:30)
[2018-02-22] MEDS ORDERED: EPHEDrine (Pressors)* 50 MG/ML VIAL ONE (17:05)
[2018-02-22] MEDS ORDERED: Dexamethasone IV* 4 MG/ML 1 ML (4 MG) ONE (17:05)
[2018-02-22] MEDS ORDERED: Propofol* 10 MG/ML 20 ML BTL IV PUSH ONE (17:05)
[2018-02-22] MEDS ORDERED: Ondansetron INJ* 2 MG/ML VIAL ONE (17:05)
[2018-02-22] MEDS ORDERED: Ketorolac INJ* 30 MG/ML 1 ML VIAL ONE (17:05)
[2018-02-22] MEDS ORDERED: HYDROmorphone INJ1* 1 MG/ML SYRINGE ONE (17:11)
[2018-02-22] MEDS ORDERED: Furosemide IV* 10 MG/ML 2 ML VIAL (20 MG) ONE (17:12)
[2018-02-22] MEDS ORDERED: Fluorescein 10% INJ* 100 MG/ML AMP ONE (17:13)
--- NOTE | 2018-02-22 18:25 | RAD ---
INDICATION: RIGHT retrograde pyelogram and stent placement. Technique: 4 seconds of?fluoroscopy?was provided?for the physician proceduralist. REPORT: RIGHT retrograde pyelogram documented without evidence for hydronephrosis. RIGHT ureteral stent placed. IMPRESSION: Procedural control films. CPT II Codes: G9500
[2018-02-22] MEDS ORDERED: Morphine INJ* 2 MG/ML 1 ML SYRINGE (TWO MG - NEW SYRINGE VERSION) ONE (18:46)
[2018-02-22] MEDS ORDERED: Lidocaine 2% JELLY* 6 ML JELLY TOPICAL ONE (18:55)
[2018-02-22 19:35] VITALS: BP 137/86
--- NOTE | 2018-02-23 10:11 | OP ---
CC: Soo Mcdermott M.D; Judy Delacruz MD * DATE OF OPERATION: 02/22/18 - [facility] DATE OF : 52 SURGEON: Dr. Ortiz. ANESTHESIOLOGIST: Dr. Berry. ANESTHESIA: General. PRE-OP DIAGNOSES: 1. Gross hematuria. 2. Bladder cancer. POST-OP DIAGNOSIS: 1. Gross hematuria. 2. Bladder cancer. OPERATIVE PROCEDURES: 1. Cystoscopy, transurethral resection of bladder tumor (5 to 6 cm). 2. Right retrograde pyelogram and right stent insertion. COMPLICATIONS: None. BLOOD LOSS: Approximately 50 mL. STENT USED: 8.5 Kuwaiti 26 cm silicone stent, right ureter. OPERATIVE FINDINGS: High grade invasive appearing bladder cancer, occupying right lateral wall and right side of trigone of urinary bladder. POSTOPERATIVE CONDITION: Stable. INDICATIONS: Dima Chen Jr. is a 68-year-old gentleman with a history of superficial bladder cancer. He recently was evaluated for persistent gross hematuria and is now being brought in for management of the same. DESCRIPTION OF PROCEDURE: After induction of general anesthesia, the patient was placed in dorsal lithotomy position. Sequential compression devices were in place and functioning. Initial cystoscopy revealed a normal-appearing urethra, mild to moderately enlarged prostate. The bladder was examined. On the right side in the right lateral wall and extending to the right side of the trigone was a solid, high grade appearing bladder tumor with active bleeding noted from some of the sites of the tumor. The left side of the bladder appeared unremarkable. In the posterior bladder wall, there were some calcifications, which may have been as a result of prior hemorrhage and clot formation. Initially, I could not visualize the right orifice. Using the resectoscope, I resected all of the visible tumor and after resection, I could see the right orifice, this was then intubated and retrograde pyelogram surprisingly did not reveal any evidence of obstruction, even though the orifice had been covered by tumor. An 8.5 Kuwaiti 26-cm silicone stent was introduced and positioned under fluoroscopy with good proximal and distal positioning obtained. Hemostasis appeared satisfactory at the end of the procedure and there was no evidence of bladder perforation. A 22-Ku[place]i Freire catheter was placed for temporary bladder drainage. The patient tolerated the procedure satisfactorily and was transferred back to the recovery area in stable condition. [id number]/[facility] #: [id number] [facility] CENTERFederico
== END 2018-02-22 19:53 | disposition home or self-care (01) ==
LOC: OR 13:59
PROVIDERS: ATTEND Urology
DX: C67.8 Malignant neoplasm of overlapping sites of bladder (principal); R31.0 Gross hematuria; E11.9 Type 2 diabetes mellitus without complications; Z79.84 Long term (current) use of oral hypoglycemic drugs; I25.10 Atherosclerotic heart disease of native coronary artery without angina pectoris; J44.9 Chronic obstructive pulmonary disease, unspecified; G47.33 Obstructive sleep apnea (adult) (pediatric); Z85.118 Personal history of other malignant neoplasm of bronchus and lung; Z86.73 Personal history of transient ischemic attack (TIA), and cerebral infarction without residual deficits; Z79.01 Long term (current) use of anticoagulants; I48.91 Unspecified atrial fibrillation
CPT/HCPCS: 74420; 88305; A9270-GY; C1876; J0696; J1100; J1170; J1885; J1940; J2250; J2270; J2405; J2704; J3010

== ENCOUNTER 2018-06-18 15:40 | Inpatient (IN) | payer MEDICARE, MEDICAID, OTHER ==
[2018-06-18 17:16] LABS: Influenza A Molecular NEGATIVE (Negative); Influenza B Molecular NEGATIVE (Negative)
--- NOTE | 2018-06-18 17:40 | ED ---
Complex/Multi-Sys Presentation - HPI Summary HPI Summary: The patient is a 68 year old male who is presenting to the [facility] with a chief complaint of weakness. The onset of the weakness was earlier today 06/18/18. The patient describes the weakness to be prevalent in both of his legs and that he is unstable when attempting to walk. Other symptoms reported include fatigue and decreased appetite. He denies difficulty breathing, chest pain depression, and coughing. PMHx includes CHF, COPD, lung cancer, brain cancer and bladder cancer. He is not receiving an therapy currently. The patient was seeing Dr. Johnston and Dr. Rock for the cancers. Flu shot was taken and currently the patient has low blood pressure. Oxygen is at home and he reportedly take oxygen as need, but has rarely needed it. A health aid comes in 3 days to see the patient in his home but otherwise he lives alone. Symptoms aggravated by nothing and alleviated by nothing. Patient also wears a defibrillator vest and will have a regular Defib placed in Thursday. - History Of Current Complaint Chief Complaint: EDWeakness Time Seen by Provider: 06/18/18 16:20 Hx Obtained From: Patient Timing: Constant Aggravating Factor(s): Nothing Alleviating Factor(s): Nothing Associated Signs And Symptoms: Positive: Weakness - Bilaterally (Legs), Other - Postive Fatigue; Negative chest pain, coughing, and difficulty breathing - Allergies/Home Medications Allergies/Adverse Reactions: Allergies Allergy/AdvReac Type Severity Reaction Status Date / Time VASQUEZ Inhibitors Allergy Severe facial Verified 06/17/18 09:58 swelling hornet venom Allergy Severe Anaphylatic Verified 06/18/18 22:51 Shock lisinopril Allergy Severe facial Verified 06/17/18 09:58 swelling cat dander Allergy Intermediate Wheezing Verified 06/17/18 09:58 PMH/Surg Hx/FS Hx/Imm Hx Endocrine/Hematology History: Reports: Hx Anticoagulant Therapy, Hx Diabetes, Hx Anemia Denies: Hx Thyroid Disease, Hx Unexplained Bleeding Cardiovascular History: Reports: Hx Angina, Hx Angioplasty, Hx Congestive Heart Failure, Hx Coronary Artery Disease - [place] with cardiogenic shock, bare stent 2014, Hx Embolism, Hx Hypercholesterolemia, Hx Hypertension, Hx Peripheral Vascular Disease, Other Cardiovascular Problems/Disorders - carotid endartectomy Denies: Hx Aneurysm, Hx Auto Implanted Cardiovert Defib, Hx Cardiac Arrest, Hx Myocardial Infarction, Hx Pacemaker/ICD, Hx Valvular Heart Disease Respiratory History: Reports: Hx Chronic Obstructive Pulmonary Disease (COPD), Hx Pneumonia, Hx Pulmonary Edema, Hx Sleep Apnea, Other Respiratory Problems/ Disorders - possible sleep apnea, "wakes up a lot" Denies: Hx Asthma GI History: Reports: Hx Diverticulosis, Hx Gastroesophageal Reflux Disease - ON DAILY MEDS, Hx Hiatal Hernia, Other GI Disorders - ventral hernia Denies: Hx Cirrhosis, Hx Crohn's Disease, Hx Gall Bladder Disease, Hx Gastrointestinal Bleed, Hx Irritable Bowel, Hx Jaundice, Hx Obstructive Bowel, Hx Ileostomy, Hx Pyloric Stenosis, Hx Ulcer History: Reports: Hx Benign Prostatic Hyperplasia, Hx Kidney Stones, Other Problems/Disorders - "bladder CA" Denies: Hx Renal Disease Musculoskeletal History: Reports: Hx Arthritis, Hx Back Problems, Hx Scoliosis, Other Musculoskeletal History - arthritis back/SCOLIOSIS Sensory History: Reports: Hx Cataracts - Bilateral, Hx Contacts or Glasses Denies: Hx Eye Injury, Hx Eye Prosthesis, Hx Glaucoma, Hx Legally Blind, Hx Macular Degeneration, Hx Vision Problem, Hx Deafness, Hx Hearing Aid, Hx Hearing Problem, Other Sensory Impairments Opthamlomology History: Reports: Hx Cataracts - Bilateral, Hx Contacts or Glasses Denies: Hx Eye Injury, Hx Eye Prosthesis, Hx Glaucoma, Hx Legally Blind, Hx Macular Degeneration, Hx Vision Problem, Other Sensory Impairments Neurological History: Reports: Hx Nerve Disease Denies: Hx Dementia, Hx Developmental Delay, Hx Headaches, Hx Migraine, Hx Seizures, Hx Spinal Cord Injury, Hx Transient Ischemic Attacks (TIA) Psychiatric History: Reports: Hx Anxiety Denies: Hx Panic Disorder, Hx Substance Abuse, Other Psychiatric Issues/ Disorders - Cancer History Cancer Type, Location and Year: 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 L[place]BAR SURGERY [place]. 2005 RIGHT INDEX FINGER REATTACHED [facility] [place] 2007 [facility]AC STENT [facility] 2012 left carotid endarterectomy [facility] [place] 2012 septoplasty [facility] [place]. 08/2013 LT FEMORAL BYPASS [facility]. 04/2015 STEMI with bare stent,cardiogenic shock; [facility] [place]. 09/2016- BLADDER SURGERY. 09/29/2016-RIGHT HIP REPLACEMENT Hx Anesthesia Reactions: No - Immunization History Date of Influenza Vaccine: 04/02/18 Infectious Disease History: No Infectious Disease History: Denies: Hx Clostridium Difficile, Hx Hepatitis, Hx Human Immunodeficiency Virus (HIV), Hx of Known/Suspected MRSA, Hx Shingles, Hx Tuberculosis, Hx Known/ Suspected VRE, Hx Known/Suspected VRSA, History Other Infectious Disease, Traveled Outside the [place] in Last 30 Days - Family History Known Family History: Positive: Cardiac Disease Family History: [place]- father, mother, sister - Social History Lives: Alone Alcohol Use: Occasionally Alcohol Amount: 5-6 drinks per week Hx Substance Use: No Substance Use Type: Reports: None Hx Tobacco Use: Yes Smoking Status (MU): Heavy Every Day Tobacco Smoker Type: Cigarettes Amount Used/How Often: 2 PPD Have You Smoked in the Last Year: Yes Review of Systems Positive: Fatigue Eyes: Negative ENT: Negative Negative: Chest Pain Respiratory: Other - Difficulty Breathing Negative: Cough Gastrointestinal: Negative Genitourinary: Negative Musculoskeletal: Negative Skin: Negative Positive: Weakness - Bilaterally (Legs) Psychological: Normal All Other Systems Reviewed And Are Negative: Yes Physical Exam - Summary Physical Exam Summary: GENERAL: Patient is a well-developed and nourished Male who is lying comfortable in the stretcher. Patient is not in any acute respiratory distress. HEAD AND FACE: Normocephalic EYES: PERRLA, EOMI x 2. EARS: Hearing grossly intact. MOUTH: Oropharynx within normal limits. NECK: Supple, trachea is midline, no adenopathy, no JVD, no carotid bruit. CHEST: Symmetric, no tenderness at palpation LUNGS: Clear to auscultation bilaterally. No wheezing or crackles. CVS: Regular rate and rhythm, S1 and S2 present, no murmurs or gallops appreciated. ABDOMEN: Soft, non-tender. Bowel sounds are normal. No abdominal abnormal pulsations. EXTREMITIES: Full ROM in all major joints, no edema, no cyanosis or clubbing. NEURO: Alert and oriented x 3. No acute neurological deficits. Speech is normal and follows commands. SKIN: Dry and warm Triage Information Reviewed: Yes Vital Signs On Initial Exam: Initial Vitals Temp Pulse Resp BP Pulse Ox 98.1 F 98 16 99/65 89 06/18/18 15:50 06/18/18 15:50 06/18/18 15:50 06/18/18 15:50 06/18/18 15:50 Vital Signs Reviewed: Yes Diagnostics - Vital Signs Vital Signs Temp Pulse Resp BP Pulse Ox 06/18/18 16:27 18 97/55 06/18/18 16:00 80 12 94 06/18/18 15:56 84 20 99/65 88 06/18/18 15:54 9 06/18/18 15:50 98.1 F 98 16 99/65 89 - Laboratory Lab Results: Lab Results 06/18/18 Range/Units 17:04 Influenza A (Rapid) Negative (Negative) Influenza B (Rapid) Negative (Negative) Result Diagrams: 06/19/18 05:59 06/19/18 05:59 Lab Statement: Any lab studies that have been ordered have been reviewed, and results considered in the medical decision making process. - Radiology Chest X-ray Radiology Interpretation Completed By: Radiologist Summary of Radiographic Findings: CXR reveals, per radiologist, 1. NEW PLEURAL- BASED NODULAR DENSITY IN THE RIGHT UPPER LOBE. RECOMMEND A CT OF THE CHEST. WITH CONTRAST FOR FURTHER CHARACTERIZATION. 2. DIFFUSE INTERSTITIAL INFILTRATES DEMONSTRATING SLIGHT PROGRESSION. ED physician has reviewed this radiology report. - EKG 1708 Cardiac Rate: NL - 82 bpm Summary of EKG Findings: EKG at 1708 reveals NSR 82 bpm with RBBB. Q-waves in the inferior leads. Complex Multi-Symp Course/Dx Course Of Treatment: The pt is 68 year old male patient who is presenting to the [facility] with a chief complaint of weakness in his legs (both). The patient received an EKG in the [facility] as well as a Chest X-ray. IV Antibiotics, Albuterol , and breathing treatments will be given to the pt. The pt will be signed out from Dr. Tanner to Dr. Benson. The patient agrees with this plan. The dx will be pneumonia and COPD. - Diagnoses Provider Diagnoses: Pneumonia, COPD (chronic obstructive pulmonary disease) Discharge - Sign-Out/Discharge Documenting (check all that apply): Sign-Out Patient Signing out patient TO: Mehul Benson - Discharge Plan Condition: Stable Disposition: ADMITTED TO [facility] - Billing Disposition and Condition Condition: STABLE Disposition: Admitted to [facility] - Attestation Statements Document Initiated by Scribe: Yes Documenting Scribe: Alonzo Barrientos Provider For Whom Scribe is Documenting (Include Credential): Dr. Rodolfo Thompsonibalton Attestation: Alonzo Ingram, scribed for Dr. Rodolfo Tanner on 06/19/18 at 0922. Scribe Documentation Reviewed: Yes Provider Attestation: The documentation as recorded by the scribeAlonzo accurately reflects the service I personally performed and the decisions made by me, Dr. Rodolfo Tanner Status of Scribe Document: Viewed
[2018-06-18 18:41] LABS: ABS Basophils 0.1 10^3/ul (0-0.2); ABS Eosinophils 0.2 10^3/ul (0-0.6); ABS Lymphocytes 0.7 10^3/ul (1.0-4.8); ABS Monocytes 0.9 10^3/ul (0-0.8); ABS Neutrophils 11.2 10^3/ul (1.5-7.7); ABS Nucleated RBC 0 10^3/ul; Eosinophil % 1.8 %; Hematocrit 42 % (42-52); Hemoglobin 13.9 g/dl (14.0-18.0); Lymphocyte % 5.3 %; Mean Corpuscular HGB Conc 33 g/dl (31-36); Mean Corpuscular Hemoglobin 30 pg (27-31); Mean Corpuscular Volume 90 fL (80-94); Mean Platelet Volume 8.4 fL (7.4-10.4); Nucleated Red Blood Cells % 0.1; Platelet Count 349 10^3/ul (150-450); Red Blood Count 4.68 10^6/ul (4.00-5.40); Red Cell Distribution Width 16 % (10.5-15); White Blood Count 13.2 10^3/ul (3.5-10.8)
[2018-06-18] MEDS ORDERED: cefTRIAXone(*) 1 GM in NS 0.9% 50 ML* 50 ML IVPB ONE (18:46)
[2018-06-18] MEDS ORDERED: Azithromycin IV(*) 500 MG in NS 0.9% 250 ML* 250 ML IVPB ONE (18:46)
[2018-06-18] MEDS ORDERED: Albuterol/Ipratropium NEB.SOL* Albuterol 2.5 MG/Ipratropium 0.5 MG 3 ML INH ONE (18:48)
[2018-06-18] MEDS ORDERED: Dexamethasone IV* 4 MG/ML 1 ML (4 MG) IV SLOW PU ONE (18:48)
[2018-06-18] MEDS ORDERED: NS 0.9% 500 ML* 500 ML IV ONE (18:49)
[2018-06-18 18:50] LABS: Activated Partial Thrombo Time 28.5 seconds (26.0-36.3); INR 0.86 (0.77-1.02)
[2018-06-18] MEDS ORDERED: cefTRIAXone(*) 1 GM ADVAN/BAG ONE (18:50)
[2018-06-18 19:03] LABS: Albumin 4.3 g/dL (3.2-5.2); Albumin/Globulin Ratio 1.2 (1-3); BUN/Creatinine Ratio 21.3 (8-20); Calcium 10.3 mg/dL (8.6-10.3); EGFR African American 41.2 (>60); EGFR Non-African American 34.1 (>60); Globulin 3.7 g/dL (2-4); Magnesium 2.2 mg/dL (1.9-2.7); Total Bilirubin 0.3 mg/dL (0.2-1.0)
--- NOTE | 2018-06-18 19:12 | ED ---
Progress - Progress Note Progress Note: The pt was signed out from Dr. Tanner to Dr. Benson pending CT Chest and lab results. - Results/Orders Results/Orders: CT Chest: Interpreted by radiologist. Dr. Benson has reviewed this report. IMPRESSION: 1. Evidence of progressive intrathoracic malignancy with numerous new bilateral pulmonary nodules, likely metastases, and enlarging mediastinal lymph nodes detailed above. Hilar nodes are difficult to assess without IV contrast. 2. New right lower lobe centrilobular nodularity, likely infectious, inflammatory or sequela of aspiration. Septal thickening is now present in the posterior basal aspect of the right upper lobe which may represent sequela of central lymphatic obstruction, atypical pulmonary edema, or lymphangitic spread of tumor.. 3. Coronary artery disease. 4. Right subclavian catheter terminates at cavoatrial junction 5. Right renal nephrolithiasis and hydronephrosis, incompletely visualized, seen previously. 6. Stable tiny hepatic hypodensities. Course/Dx - Course Course Of Treatment: The pt was signed out from Dr. Tanner to Dr. Bneson pending CT Chest and lab results. CT Chest reveals, per radiologist, 1. Evidence of progressive intrathoracic malignancy with numerous new bilateral pulmonary nodules, likely metastases, and enlarging mediastinal lymph nodes detailed above. Hilar nodes are difficult to assess without IV contrast. 2. New right lower lobe centrilobular nodularity, likely infectious,. inflammatory or sequela of aspiration. Septal thickening is now present in the posterior basal aspect of the right upper lobe which may represent sequela of central lymphatic obstruction, atypical pulmonary edema, or lymphangitic spread of tumor. 3. Coronary artery disease. 4. Right subclavian catheter terminates at cavoatrial junction 5. Right renal nephrolithiasis and hydronephrosis, incompletely visualized,. seen previously. 6. Stable tiny hepatic hypodensities. ED physician has reviewed this radiology report. Test results with no significant abnormalities except for elevated troponin. We discussed patient care with Dr. Marie and they agreed to admit the patient to [facility] [place]. Dx pneumonia and COPD. Patient will be admitted to [facility]. The patient is agreeable with this plan. - Diagnoses Provider Diagnoses: Pneumonia, COPD (chronic obstructive pulmonary disease) - Provider Notifications Discussed Care Of Patient With: Radha Marie Time Discussed With Above Provider: 20:09 Instructed by Provider To: Admit As Inpatient Discharge - Sign-Out/Discharge Documenting (check all that apply): Patient Departure - admit to [facility], Receiving Sign-Out Receiving patient FROM: Rodolfo Tanner - Discharge Plan Condition: Stable Disposition: ADMITTED TO [facility] Referrals: Soo Mcdermott MD [Primary Care Provider] - - Attestation Statements Document Initiated by Scribe: Yes Documenting Scribe: Gina Moffett Provider For Whom Scribe is Documenting (Include Credential): Mehul Benson MD Scribe Attestation: Gina Ingram, scribed for Mehul Benson MD on 06/18/18 at 2009. Status of Scribe Document: Ready
[2018-06-18 19:19] LABS: Troponin I 0.21 ng/mL (<0.04)
[2018-06-18 19:23] LABS: TSH (Thyroid Stimulating Horm) 5.73 mcIU/mL (0.34-5.60)
[2018-06-18] MEDS ORDERED: Albuterol 2.5 MG/3 ML NEB.SOL* (0.083%) INH PRN (20:35)
[2018-06-18] MEDS ORDERED: Ondansetron INJ* 2 MG/ML VIAL IV PRN (20:35)
[2018-06-18] MEDS ORDERED: Nicotine Inhaler* 10 MG AMP INH PRN (20:35)
[2018-06-18] MEDS ORDERED: Benzonatate CAP* 100 MG PO PRN ×2 (20:35→20:43)
[2018-06-18] MEDS ORDERED: cefTRIAXone(*) 1 GM in NS 0.9% 50 ML* 50 ML IVPB SCH (20:40)
[2018-06-18] MEDS ORDERED: Nitroglycerin TAB 0.4 MG* 0.4 MG TAB SL PRN (20:40)
[2018-06-18] MEDS ORDERED: Dextrose 50% Syringe 50 ML* 25 GM/50 ML SYRINGE IV PUSH PRN (20:44)
[2018-06-18] MEDS ORDERED: NS 0.9% 1000 ML* 1,000 ML IV SCH (20:45)
[2018-06-18] MEDS ORDERED: DOXYcycline IV* 100 MG in NS 0.9% 250 ML* 250 ML IVPB SCH (21:00)
[2018-06-18] MEDS ORDERED: Albuterol/Ipratropium NEB.SOL* Albuterol 2.5 MG/Ipratropium 0.5 MG 3 ML INH SCH (23:00)
[2018-06-18] MEDS: Carvedilol TAB* 6.25 MG PO SCH (23:32)
[2018-06-18] MEDS: guaiFENesin ER TAB 600 MG PO SCH (23:32)
[2018-06-18] MEDS: Heparin VIAL(*) 5000 UNITS/ML VIAL (FIVE THOUSAND) SUBCUT SCH (23:34)
[2018-06-18] MEDS: methylPREDNISolone 125 MG* 2 ML VIAL IV SCH (23:35)
[2018-06-18] MEDS: Gabapentin CAP(*) 300 MG PO SCH (23:38)
[2018-06-18] MEDS: Tamsulosin CAP* 0.4 MG PO SCH (23:39)
[2018-06-18] MEDS: Insulin LISPRO* 1 UNITS UNIT SUBCUT SCH (23:54)
[2018-06-19] MEDS: Morphine TAB Extended Release (*) 15 MG TAB.ER PO SCH ×3 (00:05→21:32)
[2018-06-19] MEDS: Mometasone/Formoter 200/5 MDI INH SCH ×3 (00:15→19:18)
--- NOTE | 2018-06-19 01:22 | HP ---
CC: Dr. Soo Mcdermott; Dr. Berto Patiño; Dr. Sergo Johnston * ADMISSION HISTORY AND PHYSICAL: DATE OF ADMISSION: 06/18/18 PRIMARY CARE PROVIDER: Dr. Soo Mcdermott. OUTPATIENT FIRE PROTECTION SPECIALIST: Dr. Berto Patiño. ONCOLOGIST: Dr. Sergo Johnston. MY ATTENDING WHILE IN THE HOSPITAL: Dr. Radha Diehl.* (DICTATED BY YOVANNY ORTIZ) CHIEF COMPLAINT: Leg weakness x1 day. HISTORY OF PRESENT ILLNESS: Mr. 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 this morning. The patient denies chest pain, shortness of breath. The patient has a chronic cough with no increase in his cough. The patient denies fevers, chills, palpitations. The patient has intermittent dizziness when standing up, but this is not a new finding for him. The patient denies focal weakness, word finding difficulty. The patient is very tired, but states that he has been up since 1 a.m. and that is the reason why he is tired and drowsy and that his brain has been foggy since he had brain radiation for metastases. The patient denies any wheezing. The patient has pain in his left arm from "pinched nerve" which has not changed. The patient's last chemotherapy was over 1 year ago in June. The patient has not had any blood in his urine. The patient occasionally has pain when he urinates in his, says, right kidney. The patient states that he woke up tired and he had no sudden onset of his weakness. The patient in the emergency department had a chest x-ray, which showed a new focal mass and progression of ground-glass opacities. The patient was also found to be hypoxic and was started on oxygen. The patient's lung exam showed diffuse wheezes due to concern for COPD exacerbation and possible pneumonia. We are asked to evaluate the patient for admission. PAST MEDICAL HISTORY: Ventricular tachycardia, the patient is currently wearing a LifeVest; small cell lung cancer with brain metastases; bladder cancer with hydronephrosis; history of CVA; coronary artery disease; heart failure, reduced ejection fraction, most recent ejection fraction 30% per the patient's most recent cardiology note; peripheral arterial disease; COPD; diabetes, type 2; hypertension; hyperlipidemia; history of myocardial infarction ; BPH; GERD; sciatica. PAST SURGICAL HISTORY: Hip replacement, fem-pop bypass, carotid endarterectomy. MEDICATIONS: The patient states he has no changes in his medications since his most recent admission. 1. Aspirin 81 mg p.o. daily. 2. Nitroglycerin 0.4 mg sublingually q.5 minutes as needed. 3. Magnesium oxide 400 mg p.o. daily. 4. Tamsulosin 0.4 mg p.o. at bedtime. 5. Gabapentin 900 mg p.o. b.i.d. 6. Fluticasone 2 sprays both nares daily. 7. Multivitamin. 8. Atorvastatin 80 mg p.o. q.p.m. 9. Omeprazole 20 mg p.o. q.a.m. 10. Metformin 500 mg p.o. b.i.d. 11. Trazodone 100 mg p.o. at bedtime as needed. 12. Carvedilol 3.125 mg p.o. b.i.d. 13. Amiodarone 200 mg p.o. q.a.m. 14. Albuterol inhaler 2.5 mg inhalation q.6 hours as needed. 15. Tylenol 650 mg p.o. q.4 hours as needed. ALLERGIES: VASQUEZ INHIBITORS, LISINOPRIL, CAT DANDER, WASP VENOM. FAMILY HISTORY: The patient's mother of PE. The patient's father of an ME. The patient is unsure of any of his siblings' medical history. SOCIAL HISTORY: The patient is still a smoker and has been actually smoking for 60 years. The patient drinks occasional alcohol. Denies illicit drug use. The patient used to work as a window washer. The patient is no longer and has 3 children. The patient's surrogate decision maker is his son, Nathan Chen. REVIEW OF SYSTEMS: A 14-point review of systems has been reviewed with the patient and is negative except as above in the HPI. PHYSICAL EXAMINATION GENERAL: The patient is a 68-year-old male, who appears older than stated age, sitting comfortably in bed, in no acute distress. VITAL SIGNS: At the time of evaluation, temperature 98.4, pulse rate 86, respiratory rate 16, oxygen saturation 95% on 4 L, blood pressure 110/66. HEENT: Head: Normocephalic, atraumatic. Sclerae anicteric. No conjunctival injection. Nasal mucosa moist. Oral mucosa moist. No oropharyngeal erythema, discharge, or exudate. NECK: Supple, nontender. No lymphadenopathy, no carotid bruits auscultated, no JVD. RESPIRATORY: Severe expiratory wheezing throughout. Good air exchange. No other adventitious lung sounds. CARDIAC: Regular rate and rhythm. No clicks, murmurs, gallops, or rubs. Pulses 2+ in the bilateral dorsalis pedis, posterior tibial, and radial areas. Trace bilateral lower extremity edema. ABDOMEN: Soft, nontender, and nondistended. Bowel sounds present and normoactive in all 4 quadrants. No hepatosplenomegaly. No abdominal bruits auscultated. No hepatojugular reflux. GENITOURINARY: No suprapubic or CVA tenderness. NEURO: The patient is very drowsy and falls asleep easily, but awakens easily to minimal stimulation. The patient is oriented x3. Cranial nerves II through XII are intact. Strength preserved in bilateral upper and lower extremities, distally and proximally. Sensation normal. Reflexes 2+ in bilateral biceps and patellar areas. 1+ in bilateral Achilles areas. PSYCHIATRIC: Pleasant and cooperative. SKIN: Clean, dry, and intact. No rash. DIAGNOSTIC STUDIES/LAB DATA: White blood cell count 13.3, hemoglobin 13.9, platelet count 349. INR 0.86, aPTT 28.5. pH 7.24, pCO2 of 63, pO2 less than 38 , HCO3 of 21.5, oxygen saturation 22%. Sodium 130, potassium 5.0, chloride 93, carbon dioxide 27, anion gap 10, BUN 42, creatinine 1.97, glucose 114, lactic acid 0.6, calcium 10.3, magnesium 2.2. Bilirubin 0.3, AST 24, ALT 17. Ammonia 56. Troponin I 0.21. BNP 230. Protein 8.0, albumin 4.3, globulin 3.7. TSH 5.73. Influenza A and B negative. Studies: Chest x-ray read as new pleural based nodular density in the right upper lobe, recommended CT of the chest with contrast for further characterization, diffuse interstitial infiltrate demonstrating slight progression. Electrocardiogram shows normal sinus rhythm and no ST-segment abnormalities, normal axis, Q waves present in the inferior leads, right bundle branch block. Compared to previous exam, there are no significant changes. Chest CT read as evidence of progressive intrathoracic malignancy with numerous new bilateral pulmonary nodules likely metastases in larger mediastinal lymph nodes as detailed above. Hilar nodes are difficult to assess without IV contrast. New right lower lobe centrilobular nodularity, likely infectious, inflammatory, or sequela of aspiration. Septal thickenings are present in posterior basal aspect of the right upper lobe which may represent sequela of central lymphatic obstruction, atypical pulmonary edema, lymphangitic spread of tumor, coronary artery disease, subclavian catheter terminates at the cavoatrial junction, right renal nephrolithiasis and hydronephrosis, incompletely visualized, seen previously hepatic hypodensities. Additional brain MRI from 06/17/18 shows, there has been interval development of small focus of enhancement with associated vasogenic edema in the right parietal gaytan radiata consistent with progression of metastatic disease. ASSESSMENT AND PLAN: Impression: Mr. Chen is a 68-year-old male with very complex past medical history significant for chronic obstructive pulmonary disease, heart failure with reduced ejection fraction, history of ventricular tachycardia, and small cell lung cancer with previous brain metastases, who presents to the emergency department with lower extremity weakness and was found to be hypoxic with an elevated troponin, acute kidney injury, and likely worsening lung cancer with new brain metastases. The patient will be admitted to the hospital for management of chronic obstructive pulmonary disease exacerbation and likely pneumonia and will be followed by his oncologist for worsening malignancy. 1. Chronic obstructive pulmonary disease exacerbation, community-acquired pneumonia. The patient has a new possibly infectious density on his chest CT. The patient will be started on ceftriaxone and azithromycin. The patient has been admitted to the hospital within the past 3 months, but has not been treated with a long-term course of antibiotics within that time. We will attempt to get a sputum sample. Will not cover for pseudomonas at this time. This may be considered if the patient fails to improve. The patient will be placed on nebulizers scheduled, steroids IV, and IV antibiotics. The patient will have triple inhaler therapy. The patient's blood pressure is slightly low. The patient will have normal saline at 75 mL an hour. The patient will have urinary legionella and Streptococcus pneumoniae antigen. 2. Small cell lung cancer with brain metastases. Based on the patient's imaging, there has been a progression in the patient's malignancy. The patient will be evaluated by his oncologist inpatient and further treatment decisions will be made based on that. 3. History of ventricular tachycardia. This has been determined to be likely scar based on cardiac MRI from [place]. The patient will be continued with his old LifeVest. Will be monitored on telemetry and will be continued on amiodarone and carvedilol. 4. History of coronary artery disease. Continue the patient's aspirin and statin. The patient has a recent catheterization, which was nonobstructive. 5. Diabetes mellitus, type 2. The patient will be started on lispro sliding scale while in the hospital. The patient very likely will need high doses of insulin due to steroid use. 6. Acute on chronic kidney disease. The patient has an acute kidney injury of unknown cause. The patient will be hydrated gently as above and have his creatinine rechecked in the morning. The patient has chronic hydronephrosis and evaluation by Urology if there is continued worsening of his creatinine should be considered. Avoid nephrotoxic drugs if possible. 7. Heart failure with reduced ejection fraction. The patient's most recent ejection fraction was approximately 30%. The patient does not appear to be in aspiration at this time. The patient has a BNP of 230. Will be judicious with use of fluids with this patient. 8. Hypertension. The patient is currently borderline hypotensive. Continue carvedilol to avoid rebound angina. Fluids as above. 9. DVT prophylaxis. The patient will be started on heparin subcu. The patient is a high risk. 10. Code status. The patient would like to be a full code. The patient's surrogate decision maker is his son as above. 11. Disposition. The patient is admitted for observation to the hospital. TIME SPENT: Approximately 60 minutes was spent on the admission of this patient , 30 of which was spent [id number] with the patient obtaining history and physical and discussing treatment plan. Plan was discussed with my attending, Dr. Radha Diehl, and she is in agreement. YOVANNY ORTIZ [id number]/[facility] #: [id number] BRY
[2018-06-19] MEDS: Heparin VIAL(*) 5000 UNITS/ML VIAL (FIVE THOUSAND) SUBCUT SCH ×3 (06:33→21:43)
[2018-06-19 07:13] LABS: BUN/Creatinine Ratio 25.5 (8-20); Calcium 9.3 mg/dL (8.6-10.3); EGFR African American 44.6 (>60); EGFR Non-African American 36.9 (>60); Magnesium 2.2 mg/dL (1.9-2.7); Potassium 5.4 mmol/L (3.5-5.0)
[2018-06-19 07:14] LABS: ABS Nucleated RBC 0 10^3/ul; Hematocrit 37 % (42-52); Hemoglobin 11.7 g/dl (14.0-18.0); Mean Corpuscular HGB Conc 32 g/dl (31-36); Mean Corpuscular Hemoglobin 29 pg (27-31); Mean Corpuscular Volume 91 fL (80-94); Mean Platelet Volume 8.8 fL (7.4-10.4); Nucleated Red Blood Cells % 0; Platelet Count 267 10^3/ul (150-450); Red Cell Distribution Width 16 % (10.5-15); White Blood Count 17.8 10^3/ul (3.5-10.8)
[2018-06-19 07:50] LABS: ABS Basophils 0 10^3/ul (0-0.2); ABS Eosinophils 0 10^3/ul (0-0.6); ABS Neutrophils 17.1 10^3/ul (1.5-7.7); Lymphocytes % 2 %; Monocytes % 2 %; Neutrophil % 96 %
[2018-06-19] MEDS: Insulin LISPRO* 1 UNITS UNIT SUBCUT SCH ×4 (08:15→21:30)
[2018-06-19] MEDS: DOXYcycline IV* 100 MG in NS 0.9% 250 ML* 250 ML IVPB SCH ×2 (08:18→20:12)
[2018-06-19] MEDS: methylPREDNISolone 125 MG* 2 ML VIAL IV SCH ×2 (08:23→21:43)
--- NOTE | 2018-06-19 08:35 | PN ---
Progress Note - Progress Note Date of Service: 06/19/18 SOAP: Subjective: denies pain. states that he is very sleepy. hard to arouse and engage in conversation. Objective: Vital Signs Temp Pulse Resp BP Pulse Ox 97.5 F 77 14 110/58 92 06/19/18 04:13 06/19/18 07:47 06/19/18 07:47 06/19/18 07:47 06/19/18 07:47 pinpoint pupils dry op diffuse rhonchi s1 s2 II/ MARY ELLEN soft nt +bs no le edema will arouse and follow some commands but easily falls back asleep moving all extremities Laboratory Results - last 24 hr 06/18/18 06/18/18 06/18/18 17:04 18:28 18:28 WBC 13.2 H RBC 4.68 Hgb 13.9 L Hct 42 MCV 90 MCH 30 MCHC 33 RDW 16 H Plt Count 349 MPV 8.4 Neut % (Auto) 85.0 Lymph % (Auto) 5.3 [place] % (Auto) 7.1 Eos % (Auto) 1.8 Baso % (Auto) 0.8 Absolute Neuts (auto) 11.2 H Absolute Lymphs (auto) 0.7 L Absolute Monos (auto) 0.9 H Absolute Eos (auto) 0.2 Absolute Basos (auto) 0.1 Absolute Nucleated RBC 0 Neutrophils % Lymphocytes % Monocytes % Eosinophils % Basophils % Nucleated RBC % 0.1 Abs Neuts (Manual) Abs Lymphs (Manual) Abs Monocytes (Manual) Absolute Eos (Manual) Abs Basophils (Manual) Normal RBC Morphology INR (Anticoag Therapy) 0.86 APTT 28.5 VBG pH VBG pCO2 VBG pO2 VBG HCO3 VBG O2 Saturation VBG Base Excess Sodium Potassium Chloride Carbon Dioxide Anion Gap BUN Creatinine Est GFR ( Amer) Est GFR (Non-Af Amer) BUN/Creatinine Ratio Glucose POC Glucose (mg/dL) Lactic Acid Calcium Magnesium Total Bilirubin AST ALT Alkaline Phosphatase Ammonia Troponin I B-Natriuretic Peptide Total Protein Albumin Globulin Albumin/Globulin Ratio TSH Influenza A (Rapid) Negative Influenza B (Rapid) Negative 06/18/18 06/18/18 06/18/18 18:28 18:28 18:28 WBC RBC Hgb Hct MCV MCH MCHC RDW Plt Count MPV Neut % (Auto) Lymph % (Auto) [place] % (Auto) Eos % (Auto) Baso % (Auto) Absolute Neuts (auto) Absolute Lymphs (auto) Absolute Monos (auto) Absolute Eos (auto) Absolute Basos (auto) Absolute Nucleated RBC Neutrophils % Lymphocytes % Monocytes % Eosinophils % Basophils % Nucleated RBC % Abs Neuts (Manual) Abs Lymphs (Manual) Abs Monocytes (Manual) Absolute Eos (Manual) Abs Basophils (Manual) Normal RBC Morphology INR (Anticoag Therapy) APTT VBG pH VBG pCO2 VBG pO2 VBG HCO3 VBG O2 Saturation VBG Base Excess Sodium 130 L Potassium 5.0 Chloride 93 L Carbon Dioxide 27 Anion Gap 10 BUN 42 H Creatinine 1.97 H Est GFR ( Amer) 41.2 Est GFR (Non-Af Amer) 34.1 BUN/Creatinine Ratio 21.3 H Glucose 114 H POC Glucose (mg/dL) Lactic Acid 0.6 Calcium 10.3 Magnesium 2.2 Total Bilirubin 0.30 AST 24 ALT 17 Alkaline Phosphatase 124 H Ammonia Troponin I 0.21 H* B-Natriuretic Peptide 230 H Total Protein 8.0 Albumin 4.3 Globulin 3.7 Albumin/Globulin Ratio 1.2 TSH 5.73 H Influenza A (Rapid) Influenza B (Rapid) 06/18/18 06/18/18 06/18/18 18:28 18:30 21:41 WBC RBC Hgb Hct MCV MCH MCHC RDW Plt Count MPV Neut % (Auto) Lymph % (Auto) [place] % (Auto) Eos % (Auto) Baso % (Auto) Absolute Neuts (auto) Absolute Lymphs (auto) Absolute Monos (auto) Absolute Eos (auto) Absolute Basos (auto) Absolute Nucleated RBC Neutrophils % Lymphocytes % Monocytes % Eosinophils % Basophils % Nucleated RBC % Abs Neuts (Manual) Abs Lymphs (Manual) Abs Monocytes (Manual) Absolute Eos (Manual) Abs Basophils (Manual) Normal RBC Morphology INR (Anticoag Therapy) APTT VBG pH 7.24 L VBG pCO2 63 H VBG pO2 < 38.0 VBG HCO3 21.5 L VBG O2 Saturation 22.0 L VBG Base Excess -1.7 L Sodium Potassium Chloride Carbon Dioxide Anion Gap BUN Creatinine Est GFR ( Amer) Est GFR (Non-Af Amer) BUN/Creatinine Ratio Glucose POC Glucose (mg/dL) Lactic Acid 0.7 Calcium Magnesium Total Bilirubin AST ALT Alkaline Phosphatase Ammonia 56 H Troponin I B-Natriuretic Peptide Total Protein Albumin Globulin Albumin/Globulin Ratio TSH Influenza A (Rapid) Influenza B (Rapid) 06/18/18 06/18/18 06/19/18 21:41 23:29 00:19 WBC RBC Hgb Hct MCV MCH MCHC RDW Plt Count MPV Neut % (Auto) Lymph % (Auto) [place] % (Auto) Eos % (Auto) Baso % (Auto) Absolute Neuts (auto) Absolute Lymphs (auto) Absolute Monos (auto) Absolute Eos (auto) Absolute Basos (auto) Absolute Nucleated RBC Neutrophils % Lymphocytes % Monocytes % Eosinophils % Basophils % Nucleated RBC % Abs Neuts (Manual) Abs Lymphs (Manual) Abs Monocytes (Manual) Absolute Eos (Manual) Abs Basophils (Manual) Normal RBC Morphology INR (Anticoag Therapy) APTT VBG pH VBG pCO2 VBG pO2 VBG HCO3 VBG O2 Saturation VBG Base Excess Sodium Potassium Chloride Carbon Dioxide Anion Gap BUN Creatinine Est GFR ( Amer) Est GFR (Non-Af Amer) BUN/Creatinine Ratio Glucose POC Glucose (mg/dL) 118 H Lactic Acid Calcium Magnesium Total Bilirubin AST ALT Alkaline Phosphatase Ammonia Troponin I 0.16 H* 0.15 H* B-Natriuretic Peptide Total Protein Albumin Globulin Albumin/Globulin Ratio TSH Influenza A (Rapid) Influenza B (Rapid) 06/19/18 06/19/18 06/19/18 05:59 05:59 07:23 WBC 17.8 H RBC 4.00 Hgb 11.7 L Hct 37 L MCV 91 MCH 29 MCHC 32 RDW 16 H Plt Count 267 MPV 8.8 Neut % (Auto) Not Reportable Lymph % (Auto) Not Reportable [place] % (Auto) Not Reportable Eos % (Auto) Not Reportable Baso % (Auto) Not Reportable Absolute Neuts (auto) Not Reportable Absolute Lymphs (auto) Not Reportable Absolute Monos (auto) Not Reportable Absolute Eos (auto) Not Reportable Absolute Basos (auto) Not Reportable Absolute Nucleated RBC 0 Neutrophils % 96 Lymphocytes % 2 Monocytes % 2 Eosinophils % 0 Basophils % 0 Nucleated RBC % 0 Abs Neuts (Manual) 17.1 H Abs Lymphs (Manual) 0.4 L Abs Monocytes (Manual) 0.4 Absolute Eos (Manual) 0 Abs Basophils (Manual) 0 Normal RBC Morphology Normal INR (Anticoag Therapy) APTT VBG pH VBG pCO2 VBG pO2 VBG HCO3 VBG O2 Saturation VBG Base Excess Sodium 130 L Potassium 5.4 H Chloride 100 L Carbon Dioxide 22 Anion Gap 8 BUN 47 H Creatinine 1.84 H Est GFR ( Amer) 44.6 Est GFR (Non-Af Amer) 36.9 BUN/Creatinine Ratio 25.5 H Glucose 131 H POC Glucose (mg/dL) 144 H Lactic Acid Calcium 9.3 Magnesium 2.2 Total Bilirubin AST ALT Alkaline Phosphatase Ammonia Troponin I B-Natriuretic Peptide Total Protein Albumin Globulin Albumin/Globulin Ratio TSH Influenza A (Rapid) Influenza B (Rapid) Acetaminophen (Tylenol Tab*) 650 mg PO Q6H PRN PRN Reason: FEVER/PAIN Albuterol (Ventolin 2.5 Mg/3 Ml Neb.Luz Elena*) 2.5 mg INH Q2H PRN PRN Reason: SOB/WHEEZING Amiodarone HCl (Cordarone Tab*) 200 mg PO DAILY [facility] Aspirin (Aspirin Ec Tab*) 81 mg PO QAM [facility] Atorvastatin Calcium (Lipitor*) 80 mg PO QPM [facility] Benzonatate (Tessalon Cap*) 100 mg PO BID PRN PRN Reason: COUGH Carvedilol (Coreg Tab*) 3.125 mg PO BID [facility] Last Admin: 06/18/18 23:32 Dose: 3.125 mg Clopidogrel Bisulfate (Plavix Tab*) 75 mg PO DAILY [facility] Device (Tiotropium Inhaler Device*) 1 each INH ONCE ONE Stop: 06/19/18 09:01 Device (Nicotine Mouth Piece*) 1 each INH ONCE PRN PRN Reason: CRAVING Dextrose (D50w Syringe 50 Ml*) 12.5 gm IV PUSH .FOR FS < 60 - SS PRN PRN Reason: FS < 60 Gabapentin (Neurontin Cap(*)) 900 mg PO BID [facility] Last Admin: 06/18/18 23:38 Dose: 900 mg Guaifenesin (Mucinex*) 1,200 mg PO BID [facility] Last Admin: 06/18/18 23:32 Dose: 1,200 mg Heparin Sodium (Porcine) (Heparin Vial(*)) 5,000 units SUBCUT Q8HR [facility] Last Admin: 06/19/18 06:33 Dose: 5,000 units Sodium Chloride (Ns 0.9% 1000 Ml*) 1,000 mls @ 75 mls/hr IV PER RATE [facility] Last Admin: 06/18/18 23:19 Dose: 75 mls/hr Doxycycline Hyclate 100 mg/ (Sodium Chloride) 250 mls @ 250 mls/hr IVPB Q12H [facility] Last Admin: 06/19/18 08:18 Dose: 250 mls/hr Ceftriaxone Sodium 1 gm/ (Sodium Chloride) 50 mls @ 200 mls/hr IVPB Q24H [facility] Insulin Human Lispro (Humalog*) 0 units SUBCUT ACHS [facility]; Protocol Last Admin: 06/19/18 08:15 Dose: 1 units Magnesium Oxide (Magox 400 Tab*) 400 mg PO QAM [facility] Methylprednisolone Sodium Succinate (Solu-Medrol 125mg *) 60 mg IV Q12H [facility] Last Admin: 06/19/18 08:23 Dose: 60 mg Mometasone Furoate/Formoterol Fumar (Dulera 200/5 Mdi*) 2 puff INH BID [facility] Last Admin: 06/19/18 00:15 Dose: 2 puff Morphine Sulfate (Ms Contin(*)) 15 mg PO Q12H [facility] Last Admin: 06/19/18 00:05 Dose: Not Given Nicotine (Nicotine Inhaler*) 10 mg INH Q2H PRN PRN Reason: CRAVING Nitroglycerin (Nitroglycerin Tab 0.4 Mg*) 0.4 mg SL Q5M PRN PRN Reason: PAIN - CHEST Ondansetron HCl (Zofran Inj*) 4 mg IV Q6H PRN PRN Reason: NAUSEA Pantoprazole Sodium (Protonix Tab (Nf)) 40 mg PO QAM [facility] Potassium Chloride (Klor Con Er Tab*) 20 meq PO DAILY [facility] Tamsulosin HCl (Flomax Cap*) 0.4 mg PO BEDTIME [facility] Last Admin: 06/18/18 23:39 Dose: 0.4 mg Tiotropium [place] (Spiriva Cap.Inh*) 1 cap INH DAILY [facility] MRI: personally reviewed, new 6 mm r parietal lesion with associated edema chest CT: personally reviewed, new bilateral pulmonary nodules, mild patchy airspace disease bilaterally, new mediastinal adenopathy, emphysema Assessment: 68 yo M w known metastatic small cell lung cancer though until recently MAIDA and off therapy x 12-18 months, now p/w likely COPD exacerbation/PNA, but found to have a new brain met and POD in his lungs. Currently obtunded which I suspect is related to retaining CO2. Plan: -transfer to ICU, Dr. Solano to consult and manage. will likely need BIPAP -cont abx per Dr. Solano recurrent small cell lung cancer: will need full restaging as an outpatient based on recovery from this admission. Does have treatment options as he has been off therapy for some time and could go back on carbo/etoposide -cont steroids for COPD but also new brain met with edema (will consult rad onc as outpatient) recent ventricular tachycardia: cath without significant CAD, EF 40-45%. currently has life vest. will need to continue to address depending on prognosis and plan, though vest likely better option now given recurrent cancer than AICD. urinary retention: apparently new. will likely need spinal MRI at some point. reassuringly, LE strength intact -cont huertas DVT prophylaxis: heparin full code, though will need to address once more mentally aware and with family
[2018-06-19] MEDS: Tiotropium CAP.INH* CAP.INH/18 MCG (USE ORDER SET !) INH SCH (08:39)
[2018-06-19] MEDS ORDERED: Spiriva Inhaler DEVICE* 1 EACH DEVICE INH ONE (09:00)
[2018-06-19] MEDS: Albuterol/Ipratropium NEB.SOL* Albuterol 2.5 MG/Ipratropium 0.5 MG 3 ML INH SCH ×4 (09:59→23:30)
[2018-06-19] MEDS ORDERED: Piperacillin/Tazobac ADVAN(*) 3.375 GM in NS 0.9% 100 ML* 100 ML IVPB ONE (11:30)
[2018-06-19] MEDS ORDERED: Zosyn per Pharmacy* NOTE FOLLOW UP SCH (12:00)
[2018-06-19] MEDS: Azithromycin IV(*) 500 MG in NS 0.9% 250 ML* 250 ML IVPB SCH (13:14)
[2018-06-19] MEDS ORDERED: Furosemide IV* 10 MG/ML VIAL (40 MG) IV SLOW PU ONE (13:16)
[2018-06-19] MEDS: Carvedilol TAB* 6.25 MG PO SCH ×2 (15:09→20:10)
[2018-06-19] MEDS: Amiodarone TAB* 200 MG PO SCH (15:10)
[2018-06-19] MEDS: Aspirin EC TAB* 81 MG TAB.EC PO SCH (15:10)
[2018-06-19] MEDS: Pantoprazole TAB * 40 MG TAB PO SCH (15:10)
[2018-06-19] MEDS: Clopidogrel TAB* 75 MG PO SCH (15:18)
[2018-06-19] MEDS: Gabapentin CAP(*) 300 MG PO SCH ×2 (15:18→21:25)
[2018-06-19] MEDS: Magnesium Oxide TAB* 400 MG PO SCH (15:20)
[2018-06-19] MEDS: guaiFENesin ER TAB 600 MG PO SCH ×2 (15:21→21:47)
--- NOTE | 2018-06-19 15:35 | CONS ---
CRITICAL CARE CONSULTATION REPORT: DATE OF CONSULT: 06/19/18 CONSULTATION REQUESTED BY: Dr. Raqule Garcia. REASON FOR CONSULT: Evaluation of altered mental status. 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 The patient has been having feeling of generalized malaise and feeling unwell 1 day prior to admission. He has significant smoking history, continues to smoke. He also drinks as per family. Has history of chronic cough with no recent changes. The patient denied chest pain, shortness of breath on admission. Denied fevers, chills, palpitations. He has intermittent dizziness with standing up, which is unchanged. The patient reports significant fatigue. As per the patient's sister who lives across from the patient's house, reported that the patient is mostly bedbound. He has been increasingly drowsy and lethargic. He also overdoses sometimes on his pain medications. Last chemotherapy was 1 year ago in June. Recently, there has been a concern about recurrence, had MRI which showed a new brain lesion. The patient's CT of the chest also showed pulmonary nodule that is concerning for recurrence of his malignancy. Further evaluation in the emergency room included chest x-ray followed by CT of the chest. I have personally reviewed chest x-ray and CT scan of the chest. The patient with prominence of interstitial markings with progression compared to prior chest x- ray. He also noted to have 1.5 cm pleural based nodular density projecting over the right upper lobe. No pleural effusion was seen. CT scan of the chest was personally reviewed by me - the patient with evidence of numerous pulmonary nodules ranging from 2 to 10 mm in size. He also noted to have 1.9 cm nodular density in the left lower lobe. The patient also with ground-glass opacity and nodular opacity in the right lower lobe with septal thickening. The patient also with evidence of reticulation scarring in the left upper lobe, which might have resulted from prior radiation. Significant centrilobular emphysematous changes noted. No pleural effusion noted. The patient with prominent right paratracheal node, a precarinal node also being prominent. The patient was started on antibiotics for community-acquired pneumonia, also given elevated white count. The patient received IV fluids. He not received any pain medications while on the floor. He was started on nebulizers and Solu-Medrol. The patient continued to deteriorate while on the floor, continued to become more drowsy and lethargic. He was difficult to be arousable to verbal commands and was able to respond to sternal rub while on the floor and it was determined to transfer him to intensive care unit for close monitoring. The patient upon arrival in the intensive care unit was drowsy, lethargic; however, was able to open eyes and conversate with verbal stimuli. He was noted to have pinpoint pupils, which are minimally reactive. Denied pain or shortness of breath. The patient would get back into sleep very quickly. The patient was placed on BiPAP. He had resisted BiPAP in the beginning; however, upon counseling and understanding the concern for worsening breathing and need for intubation, he agreed to let BiPAP stay on. Initial blood gas prior to the arrival in the ICU showed severe acidosis with pCO2 of 64, pH of 7.14, pO2 64 while on 6 L OxyMask with O2 of 92%. After BiPAP therapy, his acidosis improved to now a pH of 7.20 , pCO2 came down to 52 with pO2 of 95 while on 40% FiO2 with O2 sat of 99%. The patient became more alert. The patient was able to make his needs known. He did not want to be intubated or resuscitated. The patient's sisters arrived at bedside. The patient's son was also updated over phone who is also agreeable with no aggressive measures or intubations as the patient has made aware. PAST MEDICAL HISTORY: 1. Ventricular tachycardia, currently wearing LifeVest. 2. Small cell lung cancer with recurrence possibly and brain mets and metastatic also to the lungs. 3. Bladder cancer history with hydronephrosis. 4. History of CVA. 5. Coronary artery disease. 6. Systolic heart failure with ejection fraction of 30%. 7. Peripheral vascular disease. 8. COPD. 9. Diabetes. 10. Hypertension. 11. Dyslipidemia. 12. History of coronary artery disease and TX. 13. BPH. 14. GERD. 15. Sciatica. 16. Continued tobacco abuse and alcohol abuse. PAST SURGICAL HISTORY: Hip replacement, femoropopliteal bypass, carotid endarterectomy. MEDICATIONS: 1. Aspirin. 2. Nitroglycerin. 3. Magnesium. 4. Tamsulosin. 5. Gabapentin. 6. Fluticasone. 7. Multivitamin. 8. Atorvastatin. 9. Omeprazole. 10. Metformin. 11. Trazodone. 12. Carvedilol. 13. Amiodarone. 14. Albuterol. 15. Tylenol. ALLERGIES: VASQUEZ INHIBITOR, LISINOPRIL, CAT DANDER, WASP VENOM. FAMILY HISTORY: Mother of PE. Father of [place]. SOCIAL HISTORY: Smoker, significant smoking history of at least 60-pack years. Drinks alcohol occasionally. Denies illicit drug use. Also abuses his pain medications. His surrogate decision maker is his son, Nathan Chen, who arrived at bedside later today. REVIEW OF SYSTEMS: All 14 systems reviewed; however, they are limited given the patient's condition and altered mental status. PHYSICAL EXAM: The patient is in bed, in no apparent distress. Vital Signs: Temperature 97.7, pulse 84 beats per minute, respiratory rate 20 per minute, O2 sat 91% to 93% while on 40% FiO2, blood pressure 125/71. HEENT: Pupils are pinpoint. Mucous membranes moist. Lungs: Diminished air entry bilaterally, severe expiratory wheeze present. Cardiovascular: S1, S2 present, regular. No murmurs, gallops, or rubs. Abdomen: Soft, nontender, nondistended. Bowel sounds present. Musculoskeletal: Able to move all extremities. Neuro: Drowsy , lethargic, has improved since arrival. Skin: No rash or bruises. DIAGNOSTIC STUDIES/LAB DATA: WBC count 17.8, hemoglobin 11.7, hematocrit 37, platelet count 267. Blood gas analysis as described above in HPI. Sodium 130, potassium 5.4, chloride 100, bicarb 22, BUN 47, creatinine 1.84, glucose 131. Troponin 0.21 on admission, decreased to 0.15. Influenza A and B negative. Chest x-ray and CTA of the chest as described above in HPI. EKG on admission showed normal sinus rhythm with left atrial enlargement and right bundle branch block. IMPRESSION: 68-year-old male with history of chronic obstructive pulmonary disease, history of small cell lung cancer, admitted with generalized malaise, was found to have altered mental status secondary to hypercapnic respiratory failure, was transferred to ICU. 1. Altered mental status. 2. Hypercapnic and hypoxemic respiratory failure. 3. Possible aspiration pneumonia. 4. Severe chronic obstructive pulmonary disease with acute exacerbation. 5. Respiratory acidosis. 6. Hyperkalemia. 7. Hyponatremia. 8. Acute renal failure. 9. Elevated troponins, likely secondary to stress and right heart dysfunction. PLAN/RECOMMENDATIONS: 1. Neuro: Altered mental status secondary to hypercapnic respiratory failure. He has pinpoint pupils. Has been on narcotic pain medications, which he has been overdosing at home as per family. He has been altered since admission. Also with acute COPD exacerbation, his mental status has worsened. He did not require intubation. He has improved with BiPAP therapy. He has mentioned that he did not want to be resuscitated or intubated; however, given his inability to make decisions at this time with change in mental status, family was consulted. His son is healthcare proxy who agrees with the patient on this. Aspiration, fall precautions and seizure precautions were ordered. 2. Respiratory: Acute hypercapnic respiratory failure secondary to COPD exacerbation. Receiving nebulizers. On Solu-Medrol. Tolerated BiPAP for hour. Did not want a mask. He is currently on high-flow O2. We will titrate as tolerated. Chest x-ray repeat from this morning showed worsening of infiltrate in the right middle lobe area concerning for possible aspiration given acute change. 3. Cardiovascular: History of coronary artery disease, TX in the past, elevated troponins likely stress related. No EKG changes. He has history of atrial fibrillation. He is on amiodarone. He is also on carvedilol, Plavix, and aspirin. 4. GI: He is n.p.o. for now given acute changes in mental status. GI prophylaxis ordered. 5. Renal: Acute on chronic renal failure secondary to dehydration and sepsis, improving with fluid resuscitation. Urine output is being closely monitored. 6. Heme: Leukocytosis secondary to sepsis. Hemoglobin slight drop since admission likely hemodilution. 7. Endo: Blood sugar is slightly elevated. We will have insulin coverage ordered and monitor blood glucose closely. 8. Musculoskeletal: No issues. Frequent turning and positioning while in bed. 9. Psychosocial: Family at bedside and was updated. 10. GI and DVT prophylaxis ordered. 11. The patient is full code for now; however, did mention to me that he did want DNI status. We will have son decide when he arrives and would address the code status. Plan of care discussed with family and the patient's RN at bedside. TOTAL TIME SPENT: Sixty minutes. [id number]/[facility] #: [id number] BRY
[2018-06-19] MEDS: Potassium Chlor TAB* 20 MEQ TAB.ER PO SCH (16:32)
[2018-06-19] MEDS: ZOSYN 3.375 GM Q8H per EXTENDED INFUSION IVPB SCH ×2 (16:48)
[2018-06-19] MEDS: Atorvastatin* 80 MG TAB PO SCH (17:52)
[2018-06-19] MEDS ORDERED: cefTRIAXone(*) 1 GM in NS 0.9% 50 ML* 50 ML IVPB SCH (18:30)
[2018-06-19] MEDS: Tamsulosin CAP* 0.4 MG PO SCH (21:47)
[2018-06-19] MEDS: NS 0.9% 1000 ML* 1,000 ML IV SCH (21:52)
[2018-06-20] MEDS: ZOSYN 3.375 GM Q8H per EXTENDED INFUSION IVPB SCH ×6 (01:34→15:45)
[2018-06-20] MEDS: Nicotine PATCH 21 MG/24 HR* PATCH TRANSDERM SCH ×2 (01:47→16:54)
[2018-06-20] MEDS: Albuterol/Ipratropium NEB.SOL* Albuterol 2.5 MG/Ipratropium 0.5 MG 3 ML INH SCH ×7 (03:17→22:45)
[2018-06-20] MEDS: Heparin VIAL(*) 5000 UNITS/ML VIAL (FIVE THOUSAND) SUBCUT SCH ×3 (05:54→21:00)
[2018-06-20 06:09] LABS: ABS Basophils 0 10^3/ul (0-0.2); ABS Eosinophils 0 10^3/ul (0-0.6); ABS Lymphocytes 0.2 10^3/ul (1.0-4.8); ABS Monocytes 0.4 10^3/ul (0-0.8); ABS Neutrophils 18.7 10^3/ul (1.5-7.7); ABS Nucleated RBC 0 10^3/ul; Eosinophil % 0 %; Hematocrit 34 % (42-52); Mean Corpuscular HGB Conc 32 g/dl (31-36); Mean Corpuscular Hemoglobin 29 pg (27-31); Mean Corpuscular Volume 90 fL (80-94); Mean Platelet Volume 8.6 fL (7.4-10.4); Nucleated Red Blood Cells % 0; Platelet Count 241 10^3/ul (150-450); Red Blood Count 3.82 10^6/ul (4.00-5.40); Red Cell Distribution Width 16 % (10.5-15); White Blood Count 19.3 10^3/ul (3.5-10.8)
[2018-06-20 06:35] LABS: BUN/Creatinine Ratio 29.3 (8-20); Calcium 8.5 mg/dL (8.6-10.3); EGFR Non-African American 42.1 (>60); Potassium 3.8 mmol/L (3.5-5.0)
[2018-06-20] MEDS: Mometasone/Formoter 200/5 MDI INH SCH ×2 (07:37→19:43)
[2018-06-20] MEDS: Tiotropium CAP.INH* CAP.INH/18 MCG (USE ORDER SET !) INH SCH (07:38)
[2018-06-20] MEDS: methylPREDNISolone 125 MG* 2 ML VIAL IV SCH ×2 (08:37→20:59)
[2018-06-20] MEDS: guaiFENesin ER TAB 600 MG PO SCH ×2 (08:42→20:59)
[2018-06-20] MEDS: Aspirin EC TAB* 81 MG TAB.EC PO SCH (08:42)
[2018-06-20] MEDS: Amiodarone TAB* 200 MG PO SCH (08:42)
[2018-06-20] MEDS: Pantoprazole TAB * 40 MG TAB PO SCH (08:42)
[2018-06-20] MEDS: Gabapentin CAP(*) 300 MG PO SCH ×2 (08:42→20:59)
[2018-06-20] MEDS: Carvedilol TAB* 6.25 MG PO SCH ×2 (08:42→20:59)
[2018-06-20] MEDS: Magnesium Oxide TAB* 400 MG PO SCH (08:42)
[2018-06-20] MEDS: DOXYcycline IV* 100 MG in NS 0.9% 250 ML* 250 ML IVPB SCH (08:43)
[2018-06-20] MEDS: Potassium Chlor TAB* 20 MEQ TAB.ER PO SCH (09:36)
[2018-06-20] MEDS: Morphine TAB Extended Release (*) 15 MG TAB.ER PO SCH (09:37)
[2018-06-20] MEDS: Clopidogrel TAB* 75 MG PO SCH (09:37)
[2018-06-20] MEDS: Insulin LISPRO* 1 UNITS UNIT SUBCUT SCH ×4 (10:30→21:00)
[2018-06-20] MEDS: Azithromycin IV(*) 500 MG in NS 0.9% 250 ML* 250 ML IVPB SCH (12:25)
[2018-06-20] MEDS: Nicotine Patch Removal NOTE PATCH OFF SCH (13:50)
--- NOTE | 2018-06-20 15:33 | PN ---
Progress Note - Progress Note Date of Service: 06/20/18 - Pulmonary progress note Note: Pt seen and examined at bedside. Reports cough and sputum production. SOB is improved. Mental status improved, denied headache. Denies urinary issues Active Medications Generic Name Dose Route Start Last Admin Trade Name Freq PRN Reason Stop Dose Admin Acetaminophen 650 mg 06/18/18 20:35 Tylenol Tab* PO Q6H PRN FEVER/PAIN Albuterol 2.5 mg 06/18/18 20:35 Ventolin 2.5 Mg/3 Ml Neb.Luz Elena* INH Q2H PRN SOB/WHEEZING Albuterol/Ipratropium 1 neb 06/19/18 11:00 06/20/18 12:40 Duoneb (Albuterol 2.5 Mg/Ipratropium 0.5 Mg) INH 1 neb [id number] AWAKE ALEXX Administration Amiodarone HCl 200 mg 06/19/18 09:00 06/20/18 08:42 Cordarone Tab* PO 200 mg DAILY ALEXX Administration Aspirin 81 mg 06/19/18 09:00 06/20/18 08:42 Aspirin Ec Tab* PO 81 mg QAM ALEXX Administration Atorvastatin Calcium 80 mg 06/19/18 18:00 06/19/18 17:52 Lipitor* PO 80 mg QPM LAEXX Administration Benzonatate 100 mg 06/18/18 20:35 06/19/18 19:12 Tessalon Cap* PO 100 mg BID PRN Administration COUGH Carvedilol 3.125 mg 06/18/18 21:00 06/20/18 08:42 Coreg Tab* PO 3.125 mg BID ALEXX Administration Clopidogrel Bisulfate 75 mg 06/19/18 09:00 06/20/18 09:37 Plavix Tab* PO Not Given DAILY ALEXX Device 1 each 06/18/18 22:36 Nicotine Mouth Piece* INH ONCE PRN CRAVING Dextrose 12.5 gm 06/18/18 20:44 D50w Syringe 50 Ml* IV PUSH .FOR FS < 60 - SS PRN FS < 60 Gabapentin 900 mg 06/18/18 21:00 06/20/18 08:42 Neurontin Cap(*) PO 900 mg BID ALEXX Administration Guaifenesin 1,200 mg 06/18/18 21:00 06/20/18 08:42 Mucinex* PO 1,200 mg BID ALEXX Administration Heparin Sodium (Porcine) 5,000 units 06/18/18 22:00 06/20/18 13:49 Heparin Vial(*) SUBCUT 5,000 units Q8HR ALEXX Administration Doxycycline Hyclate 100 mg/ 250 mls @ 250 mls/hr 06/19/18 08:00 06/20/18 08: 43 Sodium Chloride IVPB 250 mls/hr Q12H ALEXX Administration Ceftriaxone Sodium 1 gm/ 50 mls @ 200 mls/hr 06/19/18 18:30 06/19/18 19:41 Sodium Chloride IVPB 200 mls/hr Q24H ALEXX Administration Azithromycin 500 mg/ Sodium 250 mls @ 250 mls/hr 06/19/18 12:00 06/20/18 12: 25 Chloride IVPB 06/22/18 23:59 250 mls/hr Q24H ALEXX Administration Piperacillin Sod/Tazobactam 100 mls @ 25 mls/hr 06/19/18 16:00 06/20/18 08:38 Sod 3.375 gm/ Sodium Chloride IVPB 25 mls/hr Q8H ALEXX Administration Sodium Chloride 1,000 mls @ 0 mls/hr 06/19/18 16:03 06/19/18 21:52 Ns 0.9% 1000 Ml* IV 10 mls/hr PER RATE ALEXX Administration KVO Insulin Human Lispro 0 units 06/18/18 21:00 06/20/18 12:34 Humalog* SUBCUT Not Given ACHS [facility] Protocol Magnesium Oxide 400 mg 06/19/18 09:00 06/20/18 08:42 Magox 400 Tab* PO 400 mg QAM ALEXX Administration Methylprednisolone Sodium Succinate 60 mg 06/18/18 21:00 06/20/18 08:37 Solu-Medrol 125mg * IV 60 mg Q12H ALEXX Administration Mometasone Furoate/Formoterol Fumar 2 puff 06/18/18 21:00 06/20/18 07:37 Dulera 200/5 Mdi* INH 2 puff BID ALEXX Administration Morphine Sulfate 15 mg 06/18/18 21:00 06/20/18 09:37 Ms Contin(*) PO Not Given Q12H ALEXX Nicotine 10 mg 06/18/18 20:35 Nicotine Inhaler* INH Q2H PRN CRAVING Nicotine 1 patch 06/20/18 02:00 06/20/18 01:47 Nicotine Patch 21 Mg/24 Hr* TRANSDERM 1 patch 0900 ALEXX Administration Nitroglycerin 0.4 mg 06/18/18 20:40 Nitroglycerin Tab 0.4 Mg* SL Q5M PRN PAIN - CHEST Ondansetron HCl 4 mg 06/18/18 20:35 Zofran Inj* IV Q6H PRN NAUSEA Pantoprazole Sodium 40 mg 06/19/18 09:00 06/20/18 08:42 Protonix Tab (Nf) PO 40 mg QAM ALEXX Administration Pharmacy Consult 1 note 06/19/18 12:00 Zosyn Per Pharmacy* FOLLOW UP .ZOSYN PER PHARMACY [facility] Pharmacy Profile Note 1 note 06/20/18 14:00 06/20/18 13:50 Nicotine Patch Removal Note* PATCH OFF 1 note 2100 ALEXX Administration Potassium Chloride 20 meq 06/19/18 09:00 06/20/18 09:36 Klor Con Er Tab* PO 20 meq DAILY ALEXX Administration Tamsulosin HCl 0.4 mg 06/18/18 21:00 06/19/18 21:47 Flomax Cap* PO 0.4 mg BEDTIME ALEXX Administration Tiotropium [place] 1 cap 06/19/18 09:00 06/20/18 07:38 Spiriva Cap.Inh* INH 1 cap DAILY ALEXX Administration Vital Signs Temp Pulse Resp BP Pulse Ox 98.0 F 86 18 109/55 96 06/20/18 12:00 06/20/18 13:02 06/20/18 13:53 06/20/18 13:02 06/20/18 13:02 O/E: Pt sitting up in chair in NAD HEENT: PERRLA, No JVD Lungs: Diminished air entry b/l, improved wheeze CVS: S1, S2+, regular Abd: Soft, BS+ Ext: No edema Neuro: More alert today, no focal deficits Skin: Erythme in groin area Laboratory Results - last 24 hr 06/19/18 06/20/18 06/20/18 16:50 06:00 06:00 WBC 19.3 H RBC 3.82 L Hgb 11.0 L Hct 34 L MCV 90 MCH 29 MCHC 32 RDW 16 H Plt Count 241 MPV 8.6 Neut % (Auto) 96.8 Lymph % (Auto) 1.0 [place] % (Auto) 2.1 Eos % (Auto) 0 Baso % (Auto) 0.1 Absolute Neuts (auto) 18.7 H Absolute Lymphs (auto) 0.2 L Absolute Monos (auto) 0.4 Absolute Eos (auto) 0 Absolute Basos (auto) 0 Absolute Nucleated RBC 0 Nucleated RBC % 0 Sodium 135 Potassium 3.8 D Chloride 103 Carbon Dioxide 23 Anion Gap 9 BUN 48 H Creatinine 1.64 H Est GFR ( Amer) 51.0 Est GFR (Non-Af Amer) 42.1 BUN/Creatinine Ratio 29.3 H Glucose 148 H POC Glucose (mg/dL) 141 H Calcium 8.5 L 06/20/18 12:32 WBC RBC Hgb Hct MCV MCH MCHC RDW Plt Count MPV Neut % (Auto) Lymph % (Auto) [place] % (Auto) Eos % (Auto) Baso % (Auto) Absolute Neuts (auto) Absolute Lymphs (auto) Absolute Monos (auto) Absolute Eos (auto) Absolute Basos (auto) Absolute Nucleated RBC Nucleated RBC % Sodium Potassium Chloride Carbon Dioxide Anion Gap BUN Creatinine Est GFR ( Amer) Est GFR (Non-Af Amer) BUN/Creatinine Ratio Glucose POC Glucose (mg/dL) 125 H Calcium I/R: 68 y o m smoker with h/o severe COPD, small cell lung cancer with recurrence and brain mets a/w with AMS Hypercapnic and hypoxic resp failure Acute COPD exacerbation AMS sec to hypercapnic resp failure and narcotics Tobacco abuse Leucocytosis- Infection versus sec to steroids Anemia Acute on chronic renal failure- improving Pt`s mental status improved with BiPAP. Pt refused BiPAP last night and this am. he is currently on high flow 30L and 50% FiO2. Titrate FiO2 as tolerated c/w bronchodilators, steroids Abx changed to Zosyn, Rocephin and Doxycycline d/tashi Elevated troponins sec to demand ischemia, no EKG changes, trending down Drop in H&H likely dilutional H/o DM, c/w Insulin SS and carbohydrate diet Nicotine supplementation ordered Pt is DNI Will continue to monitor in ICU today
[2018-06-20 15:53] LABS: Troponin I 0.09 ng/mL (<0.04)
[2018-06-20] MEDS: Atorvastatin* 80 MG TAB PO SCH (16:40)
[2018-06-20] MEDS: Mouth Piece, Nicotine* 1 EACH CARTRIDGE INH PRN (16:55)
[2018-06-20] MEDS: Tamsulosin CAP* 0.4 MG PO SCH (20:59)
[2018-06-21] MEDS: ZOSYN 3.375 GM Q8H per EXTENDED INFUSION IVPB SCH ×6 (00:02→16:09)
[2018-06-21] MEDS: Acetaminophen TAB* 325 MG PO PRN (04:16)
[2018-06-21] MEDS: Heparin VIAL(*) 5000 UNITS/ML VIAL (FIVE THOUSAND) SUBCUT SCH ×3 (06:18→22:32)
[2018-06-21] MEDS: Albuterol/Ipratropium NEB.SOL* Albuterol 2.5 MG/Ipratropium 0.5 MG 3 ML INH SCH ×6 (06:20→23:16)
--- NOTE | 2018-06-21 07:58 | PN ---
Progress Note - Progress Note Date of Service: 06/21/18 SOAP: Subjective: much clearer mentally today. refusing BIPAP because he feels like he is suffocating with it. denies headaches. felt very SOB last night, but reports he feels better this am. Objective: Vital Signs Temp Pulse Resp BP Pulse Ox 98.6 F 75 17 110/60 99 06/21/18 07:41 06/21/18 07:39 06/21/18 07:39 06/21/18 07:00 06/21/18 07:39 sitting up in mild respiratory distress breathing at 26 BPM perr eomi op moist poor air movement but less rhonchi today s1 s2 nl soft nt +Bs trace r LE edema A+O x 3, nonfocal neuro port clean Laboratory Results - last 24 hr 06/19/18 06/20/18 06/20/18 21:28 06:00 12:32 Sodium 135 Potassium 3.8 D Chloride 103 Carbon Dioxide 23 Anion Gap 9 BUN 48 H Creatinine 1.64 H Est GFR ( Amer) 51.0 Est GFR (Non-Af Amer) 42.1 BUN/Creatinine Ratio 29.3 H Glucose 148 H POC Glucose (mg/dL) 157 H 125 H Calcium 8.5 L Troponin I 0.09 H* 06/20/18 06/20/18 16:26 20:46 Sodium Potassium Chloride Carbon Dioxide Anion Gap BUN Creatinine Est GFR ( Amer) Est GFR (Non-Af Amer) BUN/Creatinine Ratio Glucose POC Glucose (mg/dL) 174 H 145 H Calcium Troponin I Acetaminophen (Tylenol Tab*) 650 mg PO Q6H PRN PRN Reason: FEVER/PAIN Last Admin: 06/21/18 04:16 Dose: 650 mg Albuterol (Ventolin 2.5 Mg/3 Ml Neb.Luz Elena*) 2.5 mg INH Q2H PRN PRN Reason: SOB/WHEEZING Albuterol/Ipratropium (Duoneb (Albuterol 2.5 Mg/Ipratropium 0.5 Mg)) 1 neb INH [id number] AWAKE [facility] Last Admin: 06/21/18 07:33 Dose: 1 neb Amiodarone HCl (Cordarone Tab*) 200 mg PO DAILY [facility] Last Admin: 06/20/18 08:42 Dose: 200 mg Aspirin (Aspirin Ec Tab*) 81 mg PO QAM [facility] Last Admin: 06/20/18 08:42 Dose: 81 mg Atorvastatin Calcium (Lipitor*) 80 mg PO QPM [facility] Last Admin: 06/20/18 16:40 Dose: 80 mg Benzonatate (Tessalon Cap*) 100 mg PO BID PRN PRN Reason: COUGH Last Admin: 06/19/18 19:12 Dose: 100 mg Carvedilol (Coreg Tab*) 3.125 mg PO BID [facility] Last Admin: 06/20/18 20:59 Dose: 3.125 mg Clopidogrel Bisulfate (Plavix Tab*) 75 mg PO DAILY [facility] Last Admin: 06/20/18 09:37 Dose: Not Given Device (Nicotine Mouth Piece*) 1 each INH ONCE PRN PRN Reason: CRAVING Last Admin: 06/20/18 16:55 Dose: 1 each Device (Tiotropium Inhaler Device*) 1 each INH ONCE ONE Stop: 06/21/18 08:01 Dextrose (D50w Syringe 50 Ml*) 12.5 gm IV PUSH .FOR FS < 60 - SS PRN PRN Reason: FS < 60 Gabapentin (Neurontin Cap(*)) 900 mg PO BID [facility] Last Admin: 06/20/18 20:59 Dose: 900 mg Guaifenesin (Mucinex*) 1,200 mg PO BID [facility] Last Admin: 06/20/18 20:59 Dose: 1,200 mg Heparin Sodium (Porcine) (Heparin Vial(*)) 5,000 units SUBCUT Q8HR [facility] Last Admin: 06/21/18 06:18 Dose: 5,000 units Azithromycin 500 mg/ Sodium (Chloride) 250 mls @ 250 mls/hr IVPB Q24H [facility] Stop: 06/22/18 23:59 Last Admin: 06/20/18 12:25 Dose: 250 mls/hr Piperacillin Sod/Tazobactam (Sod 3.375 gm/ Sodium Chloride) 100 mls @ 25 mls/ hr IVPB Q8H [facility] Last Admin: 06/21/18 00:02 Dose: 25 mls/hr Sodium Chloride (Ns 0.9% 1000 Ml*) 1,000 mls @ 0 mls/hr IV PER RATE [facility] Last Admin: 06/19/18 21:52 Dose: 10 mls/hr Insulin Human Lispro (Humalog*) 0 units SUBCUT ACHS [facility]; Protocol Last Admin: 06/20/18 21:00 Dose: 1 units Magnesium Oxide (Magox 400 Tab*) 400 mg PO QAM [facility] Last Admin: 06/20/18 08:42 Dose: 400 mg Methylprednisolone Sodium Succinate (Solu-Medrol 125mg *) 60 mg IV Q12H [facility] Last Admin: 06/20/18 20:59 Dose: 60 mg Mometasone Furoate/Formoterol Fumar (Dulera 200/5 Mdi*) 2 puff INH BID [facility] Last Admin: 06/20/18 19:43 Dose: Not Given Nicotine (Nicotine Inhaler*) 10 mg INH Q2H PRN PRN Reason: CRAVING Last Admin: 06/20/18 16:54 Dose: 10 mg Nicotine (Nicotine Patch 21 Mg/24 Hr*) 1 patch TRANSDERM 0900 [facility] Last Admin: 06/20/18 16:54 Dose: 1 patch Nitroglycerin (Nitroglycerin Tab 0.4 Mg*) 0.4 mg SL Q5M PRN PRN Reason: PAIN - CHEST Ondansetron HCl (Zofran Inj*) 4 mg IV Q6H PRN PRN Reason: NAUSEA Pantoprazole Sodium (Protonix Tab (Nf)) 40 mg PO QAM [facility] Last Admin: 06/20/18 08:42 Dose: 40 mg Pharmacy Consult (Zosyn Per Pharmacy*) 1 note FOLLOW UP .ZOSYN PER PHARMACY [facility] Pharmacy Profile Note (Nicotine Patch Removal Note*) 1 note PATCH OFF 2100 [facility] Last Admin: 06/20/18 13:50 Dose: 1 note Potassium Chloride (Klor Con Er Tab*) 20 meq PO DAILY [facility] Last Admin: 06/20/18 09:36 Dose: 20 meq Tamsulosin HCl (Flomax Cap*) 0.4 mg PO BEDTIME [facility] Last Admin: 06/20/18 20:59 Dose: 0.4 mg Tiotropium [place] (Spiriva Cap.Inh*) 1 cap INH DAILY [facility] Last Admin: 06/20/18 07:38 Dose: 1 cap Assessment: 68 yo M known extensive stage small cell lung CA though clinically MAIDA x ~1 year , now admitted with PNA and COPD exacerbation and found to have progression of disease. I discussed this with Dima at length and discussed that we will need to resume palliative chemotherapy when he recovers from this episode. I will review his brain MRI with Dr. Rock but he might benefit from gamma knife at some point (may want to give a few cycles of systemic therapy first as he is asymptomatic neurologically). Plan: PNA/COPD: appreciate CCM/pulm management as this is the driving factor of this hospitalization. his inability/unwillingness to wear BIPAP makes me concerned that he will continue to do poorly -cont abx and steroids -on vapotherm VT: will likely defer placement of AICD now, though will discuss with Dr. Johnston and cardiology. cont life vest for now cont coreg, amiodarone full code
[2018-06-21] MEDS ORDERED: Spiriva Inhaler DEVICE* 1 EACH DEVICE INH ONE (08:00)
[2018-06-21] MEDS: Gabapentin CAP(*) 300 MG PO SCH ×2 (08:23→20:42)
[2018-06-21] MEDS: Nicotine PATCH 21 MG/24 HR* PATCH TRANSDERM SCH (08:23)
[2018-06-21] MEDS: Potassium Chlor TAB* 20 MEQ TAB.ER PO SCH (08:24)
[2018-06-21] MEDS: guaiFENesin ER TAB 600 MG PO SCH ×2 (08:24→20:43)
[2018-06-21] MEDS: Aspirin EC TAB* 81 MG TAB.EC PO SCH (08:25)
[2018-06-21] MEDS: Magnesium Oxide TAB* 400 MG PO SCH (08:25)
[2018-06-21] MEDS: Carvedilol TAB* 6.25 MG PO SCH ×2 (08:25→20:43)
[2018-06-21] MEDS: Pantoprazole TAB * 40 MG TAB PO SCH (08:25)
[2018-06-21] MEDS: Clopidogrel TAB* 75 MG PO SCH (08:25)
[2018-06-21] MEDS: Amiodarone TAB* 200 MG PO SCH (08:26)
[2018-06-21] MEDS: methylPREDNISolone 125 MG* 2 ML VIAL IV SCH ×2 (08:26→20:43)
[2018-06-21] MEDS ORDERED: Docusate CAP* 100 MG PO PRN (08:48)
[2018-06-21] MEDS ORDERED: Polyethylene Glycol 3350* 17 GM PACKET PO PRN (08:49)
[2018-06-21] MEDS: Tiotropium CAP.INH* CAP.INH/18 MCG (USE ORDER SET !) INH SCH (09:27)
[2018-06-21] MEDS: Mometasone/Formoter 200/5 MDI INH SCH ×2 (09:28→19:23)
[2018-06-21] MEDS: Insulin LISPRO* 1 UNITS UNIT SUBCUT SCH ×4 (09:39→20:42)
--- NOTE | 2018-06-21 12:43 | CONSULT ---
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 It was also noted that he has increase spread of both lung & brain cancer. 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 He is still smoking, no etoh abuse and no drugs retired from [email or web address]. He has been admitted in 11/25(abd pain), 01/13(pneumonia) and 04/05/18. He lives on his own with his dog. His sister lives across the street and has a son in the area. He does have home health aides come in 3x week. He doesn't want to be intubated but does want CPR bc of Lifevest. He is aware that the cancer is back and he does want to pursue chemo therapy with Dr. Johnston. I did discuss hospice but he is not interested he wants to pursue treatment to extend his life he said he tolerated the chemo well the last time. I also explained that he will not be able to go directly home because he will be deconditioned and will need placement to get stronger. He wanted to know if he could receive chemo while in the care home. He is very worried about not being with his dog. Currently his sister is taking care of him. Lab Values: Abnormal Lab Results 06/19/18 06/20/18 06/20/18 21:28 06:00 12:32 Sodium 135 Potassium 3.8 D Chloride 103 Carbon Dioxide 23 Anion Gap 9 BUN 48 H Creatinine 1.64 H Est GFR ( Amer) 51.0 Est GFR (Non-Af Amer) 42.1 BUN/Creatinine Ratio 29.3 H Glucose 148 H POC Glucose (mg/dL) 157 H 125 H Calcium 8.5 L Troponin I 0.09 H* 06/20/18 06/20/18 06/21/18 16:26 20:46 08:17 Sodium Potassium Chloride Carbon Dioxide Anion Gap BUN Creatinine Est GFR ( Amer) Est GFR (Non-Af Amer) BUN/Creatinine Ratio Glucose POC Glucose (mg/dL) 174 H 145 H 131 H Calcium Troponin I 06/21/18 12:07 Sodium Potassium Chloride Carbon Dioxide Anion Gap BUN Creatinine Est GFR ( Amer) Est GFR (Non-Af Amer) BUN/Creatinine Ratio Glucose POC Glucose (mg/dL) 133 H Calcium Troponin I Laboratory Last Values WBC 19.3 10^3/ul (3.5-10.8) H 06/20/18 06:00 RBC 3.82 10^6/ul (4.00-5.40) L 06/20/18 06:00 Hgb 11.0 g/dl (14.0-18.0) L 06/20/18 06:00 Hct 34 % (42-52) L 06/20/18 06:00 MCV 90 fL (80-94) 06/20/18 06:00 MCH 29 pg (27-31) 06/20/18 06:00 MCHC 32 g/dl (31-36) 06/20/18 06:00 RDW 16 % (10.5-15) H 06/20/18 06:00 Plt Count 241 10^3/ul (150-450) 06/20/18 06:00 MPV 8.6 fL (7.4-10.4) 06/20/18 06:00 Neut % (Auto) 96.8 % 06/20/18 06:00 Lymph % (Auto) 1.0 % 06/20/18 06:00 [place] % (Auto) 2.1 % 06/20/18 06:00 Eos % (Auto) 0 % 06/20/18 06:00 Baso % (Auto) 0.1 % 06/20/18 06:00 Absolute Neuts (auto) 18.7 10^3/ul (1.5-7.7) H 06/20/18 06:00 Absolute Lymphs (auto) 0.2 10^3/ul (1.0-4.8) L 06/20/18 06:00 Absolute Monos (auto) 0.4 10^3/ul (0-0.8) 06/20/18 06:00 Absolute Eos (auto) 0 10^3/ul (0-0.6) 06/20/18 06:00 Absolute Basos (auto) 0 10^3/ul (0-0.2) 06/20/18 06:00 Absolute Nucleated RBC 0 10^3/ul 06/20/18 06:00 Neutrophils % 96 % 06/19/18 05:59 Lymphocytes % 2 % 06/19/18 05:59 Monocytes % 2 % 06/19/18 05:59 Eosinophils % 0 % 06/19/18 05:59 Basophils % 0 % 06/19/18 05:59 Nucleated RBC % 0 06/20/18 06:00 Abs Neuts (Manual) 17.1 10^3/ul (1.5-7.7) H 06/19/18 05:59 Abs Lymphs (Manual) 0.4 10^3/ul (1.0-4.8) L 06/19/18 05:59 Abs Monocytes (Manual) 0.4 10^3/ul (0-0.8) 06/19/18 05:59 Absolute Eos (Manual) 0 10^3/ul (0-0.6) 06/19/18 05:59 Abs Basophils (Manual) 0 10^3/ul (0-0.2) 06/19/18 05:59 Normal RBC Morphology Normal (Normal) 06/19/18 05:59 INR (Anticoag Therapy) 0.86 (0.77-1.02) 06/18/18 18:28 APTT 28.5 seconds (26.0-36.3) 06/18/18 18:28 Patient Temperature Not Reportable 06/19/18 11:00 ABG pH 7.20 (7.35-7.45) L 06/19/18 11:00 ABG pH (Temp Correct) Not Reportable 06/19/18 11:00 ABG pCO2 52 mmHg (35-45) H 06/19/18 11:00 ABG pCO2 (Temp Corrct Not Reportable 06/19/18 11:00 ABG pO2 95 mmHg (80-100) 06/19/18 11:00 ABG pO2 (Temp Correct Not Reportable 06/19/18 11:00 ABG HCO3 18.6 mmol/L (19-31) L 06/19/18 11:00 ABG O2 Saturation 99.0 % (94.0-98.0) H 06/19/18 11:00 ABG Base Excess -8.0 mmol/L (-2.0-2.0) L 06/19/18 11:00 VBG pH 7.24 (7.32-7.43) L 06/18/18 18:28 VBG pCO2 63 mmHg (41-51) H 06/18/18 18:28 VBG pO2 < 38.0 mmHg (35-45) 06/18/18 18:28 VBG HCO3 21.5 mmol/L (24-28) L 06/18/18 18:28 VBG O2 Saturation 22.0 % (70-80) L 06/18/18 18:28 VBG Base Excess -1.7 mmol/L (0.0-4.0) L 06/18/18 18:28 Respiration Rate 14 06/19/18 11:00 O2 Delivery Device bipap 06/19/18 11:00 Ventilator Type Not Reportable 06/19/18 11:00 Vent Mode Not Reportable 06/19/18 11:00 FiO2 40 06/19/18 11:00 Inspiratory Time Not Reportable 06/19/18 11:00 PEEP Not Reportable 06/19/18 11:00 Pressure Support Not Reportable 06/19/18 11:00 Pressure Control Not Reportable 06/19/18 11:00 EPAP 6 06/19/18 11:00 IPAP 12 06/19/18 11:00 BiPAP Not Reportable 06/19/18 11:00 Sodium 135 mmol/L (135-145) 06/20/18 06:00 Potassium 3.8 mmol/L (3.5-5.0) D 06/20/18 06:00 Chloride 103 mmol/L (101-111) 06/20/18 06:00 Carbon Dioxide 23 mmol/L (22-32) 06/20/18 06:00 Anion Gap 9 mmol/L (2-11) 06/20/18 06:00 BUN 48 mg/dL (6-24) H 06/20/18 06:00 Creatinine 1.64 mg/dL (0.67-1.17) H 06/20/18 06:00 Est GFR ( Amer) 51.0 (>60) 06/20/18 06:00 Est GFR (Non-Af Amer) 42.1 (>60) 06/20/18 06:00 BUN/Creatinine Ratio 29.3 (8-20) H 06/20/18 06:00 Glucose 148 mg/dL (70-100) H 06/20/18 06:00 POC Glucose (mg/dL) 133 mg/dL (70-100) H 06/21/18 12:07 Lactic Acid 0.7 mmol/L (0.5-2.0) 06/18/18 21:41 Calcium 8.5 mg/dL (8.6-10.3) L 06/20/18 06:00 Magnesium 2.2 mg/dL (1.9-2.7) 06/19/18 05:59 Total Bilirubin 0.30 mg/dL (0.2-1.0) 06/18/18 18:28 AST 24 U/L (13-39) 06/18/18 18:28 ALT 17 U/L (7-52) 06/18/18 18:28 Alkaline Phosphatase 124 U/L (34-104) H 06/18/18 18:28 Ammonia 56 mcmol/L (16-53) H 06/18/18 18:30 Troponin I 0.09 ng/mL (<0.04) H* 06/20/18 06:00 B-Natriuretic Peptide 230 pg/mL (<=100) H 06/18/18 18:28 Total Protein 8.0 g/dL (6.4-8.9) 06/18/18 18:28 Albumin 4.3 g/dL (3.2-5.2) 06/18/18 18:28 Globulin 3.7 g/dL (2-4) 06/18/18 18:28 Albumin/Globulin Ratio 1.2 (1-3) 06/18/18 18:28 TSH 5.73 mcIU/mL (0.34-5.60) H 06/18/18 18:28 Influenza A (Rapid) Negative (Negative) 06/18/18 17:04 Influenza B (Rapid) Negative (Negative) 06/18/18 17:04 - Objective Active Medications: Acetaminophen (Tylenol Tab*) 650 mg PO Q6H PRN PRN Reason: FEVER/PAIN Last Admin: 06/21/18 04:16 Dose: 650 mg Albuterol (Ventolin 2.5 Mg/3 Ml Neb.Luz Elena*) 2.5 mg INH Q2H PRN PRN Reason: SOB/WHEEZING Albuterol/Ipratropium (Duoneb (Albuterol 2.5 Mg/Ipratropium 0.5 Mg)) 1 neb INH [id number] AWAKE [facility] Last Admin: 06/21/18 11:13 Dose: 1 neb Amiodarone HCl (Cordarone Tab*) 200 mg PO DAILY [facility] Last Admin: 06/21/18 08:26 Dose: 200 mg Aspirin (Aspirin Ec Tab*) 81 mg PO QAM [facility] Last Admin: 06/21/18 08:25 Dose: 81 mg Atorvastatin Calcium (Lipitor*) 80 mg PO QPM [facility] Last Admin: 06/20/18 16:40 Dose: 80 mg Benzonatate (Tessalon Cap*) 100 mg PO BID PRN PRN Reason: COUGH Last Admin: 06/19/18 19:12 Dose: 100 mg Carvedilol (Coreg Tab*) 3.125 mg PO BID [facility] Last Admin: 06/21/18 08:25 Dose: 3.125 mg Clopidogrel Bisulfate (Plavix Tab*) 75 mg PO DAILY [facility] Last Admin: 06/21/18 08:25 Dose: 75 mg Device (Nicotine Mouth Piece*) 1 each INH ONCE PRN PRN Reason: CRAVING Last Admin: 06/20/18 16:55 Dose: 1 each Dextrose (D50w Syringe 50 Ml*) 12.5 gm IV PUSH .FOR FS < 60 - SS PRN PRN Reason: FS < 60 Docusate Sodium (Colace Cap*) 100 mg PO BID PRN PRN Reason: CONSTIPATION Gabapentin (Neurontin Cap(*)) 900 mg PO BID [facility] Last Admin: 06/21/18 08:23 Dose: 900 mg Guaifenesin (Mucinex*) 1,200 mg PO BID [facility] Last Admin: 06/21/18 08:24 Dose: 1,200 mg Heparin Sodium (Porcine) (Heparin Vial(*)) 5,000 units SUBCUT Q8HR [facility] Last Admin: 06/21/18 06:18 Dose: 5,000 units Azithromycin 500 mg/ Sodium (Chloride) 250 mls @ 250 mls/hr IVPB Q24H [facility] Stop: 06/22/18 23:59 Last Admin: 06/20/18 12:25 Dose: 250 mls/hr Piperacillin Sod/Tazobactam (Sod 3.375 gm/ Sodium Chloride) 100 mls @ 25 mls/ hr IVPB Q8H [facility] Last Admin: 06/21/18 08:23 Dose: 25 mls/hr Sodium Chloride (Ns 0.9% 1000 Ml*) 1,000 mls @ 0 mls/hr IV PER RATE [facility] Last Admin: 06/19/18 21:52 Dose: 10 mls/hr Insulin Human Lispro (Humalog*) 0 units SUBCUT [facility]; Protocol Last Admin: 06/21/18 09:39 Dose: 1 units Magnesium Oxide (Magox 400 Tab*) 400 mg PO QAM [facility] Last Admin: 06/21/18 08:25 Dose: 400 mg Methylprednisolone Sodium Succinate (Solu-Medrol 125mg *) 60 mg IV Q12H [facility] Last Admin: 06/21/18 08:26 Dose: 60 mg Mometasone Furoate/Formoterol Fumar (Dulera 200/5 Mdi*) 2 puff INH BID [facility] Last Admin: 06/21/18 09:28 Dose: 2 puff Nicotine (Nicotine Inhaler*) 10 mg INH Q2H PRN PRN Reason: CRAVING Last Admin: 06/20/18 16:54 Dose: 10 mg Nicotine (Nicotine Patch 21 Mg/24 Hr*) 1 patch TRANSDERM 0900 [facility] Last Admin: 06/21/18 08:23 Dose: 1 patch Nitroglycerin (Nitroglycerin Tab 0.4 Mg*) 0.4 mg SL Q5M PRN PRN Reason: PAIN - CHEST Ondansetron HCl (Zofran Inj*) 4 mg IV Q6H PRN PRN Reason: NAUSEA Pantoprazole Sodium (Protonix Tab (Nf)) 40 mg PO QAM [facility] Last Admin: 06/21/18 08:25 Dose: 40 mg Pharmacy Consult (Zosyn Per Pharmacy*) 1 note FOLLOW UP .ZOSYN PER PHARMACY [facility] Pharmacy Profile Note (Nicotine Patch Removal Note*) 1 note PATCH OFF 2100 [facility] Last Admin: 06/20/18 13:50 Dose: 1 note Polyethylene Glycol/Electrolytes (Miralax*) 17 gm PO DAILY PRN PRN Reason: CONSTIPATION Potassium Chloride (Klor Con Er Tab*) 20 meq PO DAILY [facility] Last Admin: 06/21/18 08:24 Dose: 20 meq Tamsulosin HCl (Flomax Cap*) 0.4 mg PO BEDTIME [facility] Last Admin: 06/20/18 20:59 Dose: 0.4 mg Tiotropium [place] (Spiriva Cap.Inh*) 1 cap INH DAILY [facility] Last Admin: 06/21/18 09:27 Dose: 1 cap Vital Signs: Vital Signs: Temp Pulse Resp BP Pulse Ox 98.6 F 75 20 126/72 99 06/21/18 07:41 06/21/18 11:17 06/21/18 11:17 06/21/18 11:06 06/21/18 11:17 Patient Weight: Weight 80.6 kg Intake and Output: Intake & Output 06/19/18 06/20/18 06/21/18 06/22/18 06:59 06:59 06:59 06:59 Intake Total 200 2658 2946 420 Output Total 1050 4545 2075 450 Balance -850 -1887 871 -30 Weight 81.601 kg 80.5 kg 80.6 kg Intake: IV Fluids 1232 820 ABX 450 NS 782 820 IVPB 26 226 ABX 226 NS 26 Oral 200 1400 1900 420 Output: Urine 3695 2075 450 Freire 850 0 Straight Cath 1050 Other: Date of Last Bowel t Movement Estimated Stool Amount Medium ADLs: Meal Record Start: 06/18/18 21: 29 Freq: DAILY@0900,1400,1800 Status: Inactive Protocol: Created 06/18/18 21:29 System (Rec: 06/18/18 21:29 System TELE-C15) ADLs: Meal Record Start: 06/19/18 10: 09 Freq: 09,13,18 Status: Active Protocol: Created 06/19/18 10:09 [id number] (Rec: 06/19/18 10:09 [id number] ICU-C12) Document 06/19/18 18:10 [id number] (Rec: 06/19/18 18:12 [id number] ICU-C25) Document 06/20/18 09:35 [id number] (Rec: 06/20/18 09:37 [id number] ICU-M30) Document 06/20/18 13:50 [id number] (Rec: 06/20/18 13:51 [id number] ICU-M30) Document 06/21/18 09:00 [id number] (Rec: 06/21/18 09:52 [id number] ICU-C15) Intake and Output Start: 06/18/18 16: 00 Freq: Status: Active Protocol: Created 06/18/18 16:00 System (Rec: 06/18/18 16:00 System [id number]) Intake and Output Start: 06/18/18 21: 29 Freq: DAILY@0600,1400,2200 Status: Inactive Protocol: Created 06/18/18 21:29 System (Rec: 06/18/18 21:29 System TELE-C15) Document 06/19/18 00:00 [id number] (Rec: 06/19/18 03:49 ODK5412 TELE-C02) Document 06/19/18 05:35 UCM1687 (Rec: 06/19/18 05:35 [id number] TELE-C01) Document 06/19/18 06:00 WMX3562 (Rec: 06/19/18 07:06 [id number] TELE-C34) Document 06/19/18 09:04 SFA5332 (Rec: 06/19/18 09:04 KUD4741 TELE-C03) Intake and Output Start: 06/19/18 10: 09 Freq: Q1HR Status: Active Protocol: Created 06/19/18 10:09 [id number] (Rec: 06/19/18 10:09 CKX1661 ICU-C12) Document 06/19/18 11:30 [id number] (Rec: 06/19/18 12:41 WUY0526 ICU-C25) Document 06/19/18 12:41 WEJ3453 (Rec: 06/19/18 12:41 [id number] ICU-C25) Document 06/19/18 13:00 [id number] (Rec: 06/19/18 15:30 SJN5086 ICU-M30) Document 06/19/18 14:00 MPI0209 (Rec: 06/19/18 15:08 KZI7612 ICU-C12) Document 06/19/18 15:00 ILT2130 (Rec: 06/19/18 15:30 [id number] ICU-M30) Document 06/19/18 15:28 [id number] (Rec: 06/19/18 15:30 [id number] ICU-M30) Document 06/19/18 15:53 EKV7584 (Rec: 06/19/18 15:53 [id number] ICU-C25) Document 06/19/18 16:30 AHH2214 (Rec: 06/19/18 16:30 IYX4070 ICU-C25) Document 06/19/18 16:58 (Rec: 06/19/18 16:58 CKS6525 ICU-C12) Document 06/19/18 17:12 QMB6243 (Rec: 06/19/18 17:12 YVX3141 ICU-C25) Document 06/19/18 17:33 [id number] (Rec: 06/19/18 17:34 [id number] ICU-C25) Document 06/19/18 18:02 [id number] (Rec: 06/19/18 18:02 NBB2616 ICU-M30) Document 06/19/18 18:47 EIL4721 (Rec: 06/19/18 18:47 BSW1157 ICU-C25) Document 06/19/18 21:37 [id number] (Rec: 06/19/18 21:37 JAV1793 ICU-M30) Document 06/19/18 22:00 [id number] (Rec: 06/19/18 22:18 YVD3506 ICU-C15) Document 06/19/18 22:49 LYT7538 (Rec: 06/19/18 22:49 BMP6722 ICU-C14) Document 06/20/18 00:00 SJZ9986 (Rec: 06/20/18 01:26 [id number] ICU-C15) Document 06/20/18 01:00 [id number] (Rec: 06/20/18 01:26 PTN0646 ICU-C15) Document 06/20/18 02:00 MAC7671 (Rec: 06/20/18 02:35 SPP1729 ICU-C15) Document 06/20/18 03:00 DWT4149 (Rec: 06/20/18 03:01 UGT2618 ICU-M22) Document 06/20/18 05:57 BTR1943 (Rec: 06/20/18 05:57 LOL1530 ICU-M30) Document 06/20/18 07:30 VRH2051 (Rec: 06/20/18 07:57 [id number] ICU-C15) Document 06/20/18 08:11 UCA3050 (Rec: 06/20/18 08:11 [id number] ICU-C15) Document 06/20/18 09:20 FVH9549 (Rec: 06/20/18 09:29 XII3504 ICU-C15) Document 06/20/18 11:30 XLG5382 (Rec: 06/20/18 11:38 RLG7602 ICU-C15) Document 06/20/18 12:15 OJD7800 (Rec: 06/20/18 12:27 IAO6079 ICU-M30) Document 06/20/18 13:45 UBC5798 (Rec: 06/20/18 13:48 FMM6285 ICU-M31) Document 06/20/18 16:00 BMH0494 (Rec: 06/20/18 17:20 OZL0826 ICU-C16) Document 06/20/18 17:00 AXC8237 (Rec: 06/20/18 17:21 YCO5534 ICU-C16) Document 06/20/18 18:00 AXC3771 (Rec: 06/20/18 18:47 NDL0179 ICU-C16) Document 06/20/18 18:00 WCI0072 (Rec: 06/20/18 18:03 RDN4072 ICU-C14) Document 06/20/18 19:00 AIS0061 (Rec: 06/20/18 19:35 WQN1212 ICU-C12) Document 06/20/18 21:00 ZTR9340 (Rec: 06/20/18 21:43 [id number] ICU-C12) Document 06/20/18 22:00 JWC0631 (Rec: 06/20/18 22:02 [id number] ICU-C15) Document 06/20/18 22:03 [id number] (Rec: 06/20/18 22:03 DVI9029 ICU-C15) Document 06/20/18 23:55 SEU1693 (Rec: 06/20/18 23:55 [id number] ICU-C12) Document 06/21/18 01:00 HRY9717 (Rec: 06/21/18 01:07 GFZ9634 ICU-C15) Document 06/21/18 01:23 OZU8972 (Rec: 06/21/18 01:23 AUR0470 ICU-C12) Document 06/21/18 03:00 WJM5187 (Rec: 06/21/18 03:27 UYK7574 ICU-C12) Document 06/21/18 05:23 IWQ6940 (Rec: 06/21/18 05:23 DJH7310 ICU-C15) Document 06/21/18 06:00 MZY3290 (Rec: 06/21/18 06:15 [id number] ICU-C15) Document 06/21/18 06:22 [id number] (Rec: 06/21/18 06:22 [id number] ICU-C12) Document 06/21/18 09:00 [id number] (Rec: 06/21/18 09:[id number] [facility]-M03 ) Document 06/21/18 09:35 [id number] (Rec: 06/21/18 09:35 [id number] ICU-C14) Document 06/21/18 11:00 [id number] (Rec: 06/21/18 11:17 [id number] ICU-C14) Head: Normal Ears/Nose/Mouth/Throat: Clear Oropharnyx Neck: NL Appearance and Movements; NL JVP Cardiovascular: NL Sounds; No Murmurs; No JVD Respiratory: Symmetrical Chest Expansion and Respiratory Effort - diffuse wheezes Neurological: Alert and Oriented x 3 - Assessment Assessment: 68 yo male with spread of his lung Ca and brain mets currently being treated for COPD exacerbation and pneumonia - Plan Consult Plan (MU): Hospice Plan: Pt wants to pursue treatment for cancer. He is a candidate for hospice but is not interested currently. Most likely he will need placement since he lives on his own after this hospitalization if he should make it back home he will need extra support with [facility] or [facility]. I left a message with his son to update him. Pt is aware he has a limited life expectancy but wants to live as long as he can therefore he wants the chemo and he tolerated it well in the past. Of note he has lost 20 kilos. Discussed with ICU physician and caser. The goal for now is to wean him from the vaportherm. If he can't be weaned he may want to reconsider hospice. - Time On Unit Date of Evaluation: 06/21/18 Hospice Consult Time in: 11:00 Hospice Consult Time Out: 12:00 Hospice Consult Time Total: 60 > 50% of Time Spend In Counseling or Coordinating Care: Yes
[2018-06-21] MEDS: Azithromycin IV(*) 500 MG in NS 0.9% 250 ML* 250 ML IVPB SCH (13:26)
--- NOTE | 2018-06-21 15:24 | PN ---
Date of Service: 06/21/18 Critical Care Services: Respiratory status improving - is off Vapotherm now and on 10 L/min by IL. Seen by hospice service today. Vital Signs: Temp Pulse Resp BP SpO2 FiO2 98.9 F 81 19 117/67 98 100 Physical Exam: Gen:Alket and oriented Lungs:scattered rhonchi Extremities:No cyanosis or edema Fluid Balance (Past 24 Hours): 06/21/18 06:59 Intake Total 2946 Output Total 5 Balance 871 Weight 177 lb Intake: IV Fluids 820 ABX NS 820 IVPB 226 ABX 226 NS Oral 1900 Output: Urine 2074 Freire 0 Straight Cath Other: Date of Last Bowel Movement Estimated Stool Amount Labs: 06/19/18 06/20/18 06/20/18 21:28 06:00 16:26 Sodium 135 Potassium 3.8 D Chloride 103 Carbon Dioxide 23 Anion Gap 9 BUN 48 H Creatinine 1.64 H Est GFR ( Amer) 51.0 Est GFR (Non-Af Amer) 42.1 BUN/Creatinine Ratio 29.3 H Glucose 148 H POC Glucose (mg/dL) 157 H 174 H Calcium 8.5 L Troponin I 0.09 H* 06/20/18 06/21/18 06/21/18 20:46 08:17 12:07 Sodium Potassium Chloride Carbon Dioxide Anion Gap BUN Creatinine Est GFR ( Amer) Est GFR (Non-Af Amer) BUN/Creatinine Ratio Glucose POC Glucose (mg/dL) 145 H 131 H 133 H Calcium Troponin I Studies: None other than labs Impression: Improved gas exchange. No evidence of a treatable lung infection. Plan: Continue present management. Can leave ICU if gas exchange remains improved. Critical Care Time: 35 minutes
[2018-06-21] MEDS: Atorvastatin* 80 MG TAB PO SCH (18:00)
[2018-06-21] MEDS: Tamsulosin CAP* 0.4 MG PO SCH (20:43)
[2018-06-21] MEDS: Nicotine Patch Removal NOTE PATCH OFF SCH (20:50)
[2018-06-22] MEDS: ZOSYN 3.375 GM Q8H per EXTENDED INFUSION IVPB SCH ×6 (00:45→18:21)
[2018-06-22] MEDS ORDERED: Lidocaine 2% JELLY* 6 ML JELLY TOPICAL ONE ×3 (01:31→17:18)
[2018-06-22] MEDS: Albuterol/Ipratropium NEB.SOL* Albuterol 2.5 MG/Ipratropium 0.5 MG 3 ML INH SCH ×4 (01:33→20:47)
[2018-06-22] MEDS: Heparin VIAL(*) 5000 UNITS/ML VIAL (FIVE THOUSAND) SUBCUT SCH ×2 (05:43→14:32)
[2018-06-22 06:21] LABS: Hematocrit 32 % (42-52); Hemoglobin 10.7 g/dl (14.0-18.0); Mean Corpuscular HGB Conc 33 g/dl (31-36); Mean Corpuscular Hemoglobin 29 pg (27-31); Mean Corpuscular Volume 89 fL (80-94); Mean Platelet Volume 8.7 fL (7.4-10.4); Platelet Count 263 10^3/ul (150-450); Red Blood Count 3.65 10^6/ul (4.00-5.40); Red Cell Distribution Width 16 % (10.5-15); White Blood Count 17.9 10^3/ul (3.5-10.8)
[2018-06-22 06:37] LABS: BUN/Creatinine Ratio 31.1 (8-20); EGFR African American 57.4 (>60); EGFR Non-African American 47.4 (>60); Potassium 4.3 mmol/L (3.5-5.0)
[2018-06-22] MEDS: Insulin LISPRO* 1 UNITS UNIT SUBCUT SCH ×3 (08:35→17:19)
[2018-06-22] MEDS: Nicotine PATCH 21 MG/24 HR* PATCH TRANSDERM SCH (08:36)
[2018-06-22] MEDS: methylPREDNISolone 125 MG* 2 ML VIAL IV SCH ×2 (08:36→23:24)
[2018-06-22] MEDS: Amiodarone TAB* 200 MG PO SCH (08:37)
[2018-06-22] MEDS: Clopidogrel TAB* 75 MG PO SCH (08:37)
[2018-06-22] MEDS: guaiFENesin ER TAB 600 MG PO SCH ×2 (08:37→23:09)
[2018-06-22] MEDS: Pantoprazole TAB * 40 MG TAB PO SCH (08:37)
[2018-06-22] MEDS: Potassium Chlor TAB* 20 MEQ TAB.ER PO SCH (08:37)
[2018-06-22] MEDS: Gabapentin CAP(*) 300 MG PO SCH ×2 (08:37→23:09)
[2018-06-22] MEDS: Aspirin EC TAB* 81 MG TAB.EC PO SCH (08:37)
[2018-06-22] MEDS: Magnesium Oxide TAB* 400 MG PO SCH (08:38)
[2018-06-22] MEDS: Carvedilol TAB* 6.25 MG PO SCH ×2 (08:43→23:20)
[2018-06-22] MEDS: Mometasone/Formoter 200/5 MDI INH SCH ×2 (08:46→20:47)
[2018-06-22] MEDS: Tiotropium CAP.INH* CAP.INH/18 MCG (USE ORDER SET !) INH SCH (08:46)
--- NOTE | 2018-06-22 09:51 | PN ---
Date of Service: 06/22/18 Critical Care Services: Patient had an uneventful evening other than huertas catheter placed for urinary retention (a chronic problem due to BPH). This AM is breathing comfortably on nasal O2 at 8 L/min. Vital Signs: Temp Pulse Resp BP SpO2 FiO2 98.7 F 88 25 121/72 94 100 Physical Exam: Gen:Alert, oriented Lungs:Crackles on right side. Extremities:No cyanosis - trace edema. Fluid Balance (Past 24 Hours): 06/22/18 06:59 Intake Total 1488 Output Total 2205 Balance -717 Weight 181 lb Intake: IV Fluids 120 ABX 72 NS 48 IVPB 708 ABX 708 NS Oral 660 Output: Urine 1080 Huertas 1125 Other: Date of Last Bowel t Movement Estimated Stool Amount Medium Labs: 06/22/18 06/22/18 06:00 06:00 WBC 17.9 H RBC 3.65 L Hgb 10.7 L Hct 32 L MCV 89 MCH 29 MCHC 33 RDW 16 H Plt Count 263 MPV 8.7 Sodium 139 Potassium 4.3 Chloride 107 Carbon Dioxide 26 Anion Gap 6 BUN 46 H Creatinine 1.48 H Glucose 135 H POC Glucose (mg/dL) Calcium 9.0 Studies: CXR _ right-sided infiltrate -present on last CXR but looks more extensive because of better aeration of right meddle lobe. All cultures negative. Nutrition: Oral diet Impression: 1. Gas exchange much improved, and no longer needs high-flow (Vapotherm) nasal O2. 2. Infiltrate in right lung does not appear to be due to a treatable infection. Plan: 1. Transfer out of ICU today 2. Further management per Dr Johnston of Oncology Service.
[2018-06-22] MEDS: Azithromycin IV(*) 500 MG in NS 0.9% 250 ML* 250 ML IVPB SCH (12:01)
[2018-06-22] MEDS: Acetaminophen TAB* 325 MG PO PRN (13:42)
[2018-06-22] MEDS ORDERED: Morphine VIAL* 4 MG/ML VIAL (1 ml vial) ONE (14:43)
[2018-06-22] MEDS ORDERED: Morphine VIAL* 4 MG/ML VIAL (1 ml vial) IV ONE ×2 (16:00→20:40)
--- NOTE | 2018-06-22 16:31 | PN ---
Progress Note - Progress Note Date of Service: 06/22/18 - Pulm f/u note Note: Pt seen and examined at bedside. Pt is more alert, less dyspneic. Cough is better, still feels having thick secretions. Could not tolerate BIPAP. Having hematuria, fluid retention, had huertas inserted lastnight, having hematuria and blood clots through huertas.. Reports having more trouble with breathing due to urinary retention Active Medications Generic Name Dose Route Start Last Admin Trade Name Freq PRN Reason Stop Dose Admin Acetaminophen 650 mg 06/18/18 20:35 06/22/18 13:42 Tylenol Tab* PO 650 mg Q6H PRN Administration FEVER/PAIN Albuterol 2.5 mg 06/18/18 20:35 Ventolin 2.5 Mg/3 Ml Neb.Luz Elena* INH Q2H PRN SOB/WHEEZING Albuterol/Ipratropium 1 neb 06/22/18 13:00 06/22/18 13:20 Duoneb (Albuterol 2.5 Mg/Ipratropium 0.5 Mg) INH 1 neb [id number] AWAKE ALEXX Administration Amiodarone HCl 200 mg 06/19/18 09:00 06/22/18 08:37 Cordarone Tab* PO 200 mg DAILY ALEXX Administration Aspirin 81 mg 06/19/18 09:00 06/22/18 08:37 Aspirin Ec Tab* PO 81 mg QAM ALEXX Administration Atorvastatin Calcium 80 mg 06/19/18 18:00 06/21/18 18:00 Lipitor* PO 80 mg QPM ALEXX Administration Benzonatate 100 mg 06/18/18 20:35 06/19/18 19:12 Tessalon Cap* PO 100 mg BID PRN Administration COUGH Carvedilol 3.125 mg 06/18/18 21:00 06/22/18 08:43 Coreg Tab* PO 3.125 mg BID ALEXX Administration Clopidogrel Bisulfate 75 mg 06/19/18 09:00 06/22/18 08:37 Plavix Tab* PO 75 mg DAILY ALEXX Administration Device 1 each 06/18/18 22:36 06/20/18 16:55 Nicotine Mouth Piece* INH 1 each ONCE PRN Administration CRAVING Dextrose 12.5 gm 06/18/18 20:44 D50w Syringe 50 Ml* IV PUSH .FOR FS < 60 - SS PRN FS < 60 Docusate Sodium 100 mg 06/21/18 08:48 Colace Cap* PO BID PRN CONSTIPATION Gabapentin 900 mg 06/18/18 21:00 06/22/18 08:37 Neurontin Cap(*) PO 900 mg BID ALEXX Administration Guaifenesin 1,200 mg 06/18/18 21:00 06/22/18 08:37 Mucinex* PO 1,200 mg BID ALEXX Administration Azithromycin 500 mg/ Sodium 250 mls @ 250 mls/hr 06/19/18 12:00 06/22/18 12: 01 Chloride IVPB 06/22/18 23:59 250 mls/hr Q24H ALEXX Administration Piperacillin Sod/Tazobactam 100 mls @ 25 mls/hr 06/19/18 16:00 06/22/18 08:36 Sod 3.375 gm/ Sodium Chloride IVPB 25 mls/hr Q8H ALEXX Administration Sodium Chloride 1,000 mls @ 0 mls/hr 06/19/18 16:03 06/19/18 21:52 Ns 0.9% 1000 Ml* IV 10 mls/hr PER RATE ALEXX Administration KVO Insulin Human Lispro 0 units 06/18/18 21:00 06/22/18 12:16 Humalog* SUBCUT 4 units ACHS ALEXX Administration Protocol Magnesium Oxide 400 mg 06/19/18 09:00 06/22/18 08:38 Magox 400 Tab* PO 400 mg QAM ALEXX Administration Methylprednisolone Sodium Succinate 60 mg 06/18/18 21:00 06/22/18 08:36 Solu-Medrol 125mg * IV 60 mg Q12H ALEXX Administration Mometasone Furoate/Formoterol Fumar 2 puff 06/18/18 21:00 06/22/18 08:46 Dulera 200/5 Mdi* INH 2 puff BID ALEXX Administration Nicotine 10 mg 06/18/18 20:35 06/20/18 16:54 Nicotine Inhaler* INH 10 mg Q2H PRN Administration CRAVING Nicotine 1 patch 06/20/18 02:00 06/22/18 08:36 Nicotine Patch 21 Mg/24 Hr* TRANSDERM 1 patch 0900 ALEXX Administration Nitroglycerin 0.4 mg 06/18/18 20:40 Nitroglycerin Tab 0.4 Mg* SL Q5M PRN PAIN - CHEST Ondansetron HCl 4 mg 06/18/18 20:35 Zofran Inj* IV Q6H PRN NAUSEA Pantoprazole Sodium 40 mg 06/19/18 09:00 06/22/18 08:37 Protonix Tab (Nf) PO 40 mg QAM ALEXX Administration Pharmacy Consult 1 note 06/19/18 12:00 Zosyn Per Pharmacy* FOLLOW UP .ZOSYN PER PHARMACY [facility] Pharmacy Profile Note 1 note 06/20/18 14:00 06/21/18 20:50 Nicotine Patch Removal Note* PATCH OFF 1 note 2100 ALEXX Administration Polyethylene Glycol/Electrolytes 17 gm 06/21/18 08:49 Miralax* PO DAILY PRN CONSTIPATION Potassium Chloride 20 meq 06/19/18 09:00 06/22/18 08:37 Klor Con Er Tab* PO 20 meq DAILY ALEXX Administration Tamsulosin HCl 0.4 mg 06/18/18 21:00 06/21/18 20:43 Flomax Cap* PO 0.4 mg BEDTIME ALEXX Administration Tiotropium [place] 1 cap 06/19/18 09:00 06/22/18 08:46 Spiriva Cap.Inh* INH 1 cap DAILY ALEXX Administration Vital Signs Temp Pulse Resp BP Pulse Ox 98.1 F 80 20 134/73 91 06/22/18 15:25 06/22/18 15:25 06/22/18 15:25 06/22/18 15:25 06/22/18 15:25 O/E: Pt in NAD HEENT: PERRLA Lungs: Diminished air entry b/l, scaterred wheeze + CVS: S1, S2+, regular Abd: Obese, BS+ Ext: Normal ROM Skin: Erythema in groin region Neuro: ALert, awake, no focal deficits Laboratory Results - last 24 hr 06/21/18 06/21/18 06/22/18 17:16 20:34 06:00 WBC RBC Hgb Hct MCV MCH MCHC RDW Plt Count MPV Sodium 139 Potassium 4.3 Chloride 107 Carbon Dioxide 26 Anion Gap 6 BUN 46 H Creatinine 1.48 H Est GFR ( Amer) 57.4 Est GFR (Non-Af Amer) 47.4 BUN/Creatinine Ratio 31.1 H Glucose 135 H POC Glucose (mg/dL) 159 H 161 H Calcium 9.0 06/22/18 06/22/18 06:00 12:01 WBC 17.9 H RBC 3.65 L Hgb 10.7 L Hct 32 L MCV 89 MCH 29 MCHC 33 RDW 16 H Plt Count 263 MPV 8.7 Sodium Potassium Chloride Carbon Dioxide Anion Gap BUN Creatinine Est GFR ( Amer) Est GFR (Non-Af Amer) BUN/Creatinine Ratio Glucose POC Glucose (mg/dL) 221 H Calcium I/R: 68 y o m smoker with h/o severe COPD, small cell lung cancer with recurrence and brain mets a/w with AMS Hypercapnic and hypoxic resp failure- improved Acute COPD exacerbation- improving AMS sec to hypercapnic resp failure and narcotics- resolved Tobacco abuse- Nicotine suppl Pt`s mental status improved with BiPAP. Pt refused BiPAP last night and this am. he is currently on 5L O2 Titrate FiO2 as tolerated c/w bronchodilators, steroids Abx changed to Zosyn, Azithro, day#4, Rocephin and Doxycycline d/tashi c/w bronchodilators Pt doesnot want to use BiPAP Can start steroid taper CXR showed air space opacities that might be worwening, clinically he is improving CT chest with multiple sub-centimeter pulm nodules concerning for recurrence and progression of cancer Pulm toilet Aspiration precuations Nicotine supplementation ordered Pt is DNI
[2018-06-22] MEDS ORDERED: Furosemide IV* 10 MG/ML 2 ML VIAL (20 MG) IV ONE (17:40)
[2018-06-22] MEDS ORDERED: Lidocaine 2% JELLY* 6 ML JELLY TOPICAL PRN (17:44)
[2018-06-22] MEDS: Atorvastatin* 80 MG TAB PO SCH (17:49)
[2018-06-22] MEDS: Morphine VIAL* 4 MG/ML VIAL (1 ml vial) IV PRN ×2 (18:00→20:01)
[2018-06-22] MEDS ORDERED: Morphine VIAL* 4 MG/ML VIAL (1 ml vial) IV PRN (20:40)
[2018-06-22] MEDS: Morphine INJ* 2 MG/ML 1 ML SYRINGE (TWO MG - NEW SYRINGE VERSION) IV PRN (22:47)
[2018-06-22] MEDS ORDERED: Morphine PCA 5 MG/ML * Titrate per Protocol PCA SCH (23:16)
[2018-06-22] MEDS: Nicotine Patch Removal NOTE PATCH OFF SCH (23:47)
[2018-06-23] MEDS: Tamsulosin CAP* 0.4 MG PO SCH (00:06)
[2018-06-23] MEDS: Morphine INJ* 2 MG/ML 1 ML SYRINGE (TWO MG - NEW SYRINGE VERSION) IV PRN ×2 (00:08→01:42)
[2018-06-23] MEDS: Insulin LISPRO* 1 UNITS UNIT SUBCUT SCH ×3 (00:08→11:06)
[2018-06-23] MEDS: Albuterol/Ipratropium NEB.SOL* Albuterol 2.5 MG/Ipratropium 0.5 MG 3 ML INH SCH ×3 (00:59→12:08)
[2018-06-23] MEDS: ZOSYN 3.375 GM Q8H per EXTENDED INFUSION IVPB SCH ×4 (02:24→08:32)
[2018-06-23] MEDS ORDERED: Mouth Piece, Nicotine* 1 EACH CARTRIDGE ONE (04:51)
[2018-06-23] MEDS: Mouth Piece, Nicotine* 1 EACH CARTRIDGE INH PRN (04:56)
[2018-06-23 06:47] LABS: ABS Basophils 0 10^3/ul (0-0.2); ABS Eosinophils 0 10^3/ul (0-0.6); ABS Lymphocytes 0.2 10^3/ul (1.0-4.8); ABS Monocytes 0.5 10^3/ul (0-0.8); ABS Neutrophils 13.5 10^3/ul (1.5-7.7); ABS Nucleated RBC 0 10^3/ul; Eosinophil % 0 %; Hematocrit 29 % (42-52); Hemoglobin 9.5 g/dl (14.0-18.0); Lymphocyte % 1.1 %; Mean Corpuscular HGB Conc 33 g/dl (31-36); Mean Corpuscular Hemoglobin 29 pg (27-31); Mean Corpuscular Volume 88 fL (80-94); Mean Platelet Volume 8.4 fL (7.4-10.4); Nucleated Red Blood Cells % 0; Platelet Count 224 10^3/ul (150-450); Red Blood Count 3.28 10^6/ul (4.00-5.40); Red Cell Distribution Width 16 % (10.5-15); White Blood Count 14.2 10^3/ul (3.5-10.8)
[2018-06-23 07:04] LABS: BUN/Creatinine Ratio 36.2 (8-20); Calcium 9.2 mg/dL (8.6-10.3); EGFR African American 56.9 (>60); Potassium 4.7 mmol/L (3.5-5.0)
[2018-06-23] MEDS: Tiotropium CAP.INH* CAP.INH/18 MCG (USE ORDER SET !) INH SCH (07:23)
[2018-06-23] MEDS: Mometasone/Formoter 200/5 MDI INH SCH (07:23)
[2018-06-23 08:38] LABS: Activated Partial Thrombo Time 27.1 seconds (26.0-36.3); INR 0.92 (0.77-1.02)
[2018-06-23] MEDS: methylPREDNISolone 125 MG* 2 ML VIAL IV SCH (09:02)
[2018-06-23] MEDS: Magnesium Oxide TAB* 400 MG PO SCH (09:03)
[2018-06-23] MEDS: Amiodarone TAB* 200 MG PO SCH (09:03)
[2018-06-23] MEDS: Potassium Chlor TAB* 20 MEQ TAB.ER PO SCH (09:03)
[2018-06-23] MEDS: Carvedilol TAB* 6.25 MG PO SCH (09:03)
[2018-06-23] MEDS: Pantoprazole TAB * 40 MG TAB PO SCH (09:03)
[2018-06-23] MEDS: Aspirin EC TAB* 81 MG TAB.EC PO SCH (09:03)
[2018-06-23] MEDS: Gabapentin CAP(*) 300 MG PO SCH (09:03)
[2018-06-23] MEDS: guaiFENesin ER TAB 600 MG PO SCH (09:04)
[2018-06-23] MEDS: Nicotine PATCH 21 MG/24 HR* PATCH TRANSDERM SCH (09:04)
--- NOTE | 2018-06-23 10:34 | PN ---
Progress Note - Progress Note Date of Service: 06/23/18 SOAP: Subjective: somewhat sedated from [employer]PER[employer] drip. pain much better than in the middle of the night. Objective: Vital Signs Temp Pulse Resp BP Pulse Ox 97.6 F 75 20 107/60 93 06/23/18 07:15 06/23/18 07:35 06/23/18 09:55 06/23/18 07:15 06/23/18 09:55 lying on side in NAD perr eomi op moist mild wheeze throughout s1 s2nl soft nt +bs trace LE edema bl A+O x 3, nonfocal neurological exam Laboratory Results - last 24 hr 06/22/18 06/22/18 06/22/18 12:01 16:54 23:23 WBC RBC Hgb Hct MCV MCH MCHC RDW Plt Count MPV Neut % (Auto) Lymph % (Auto) [place] % (Auto) Eos % (Auto) Baso % (Auto) Absolute Neuts (auto) Absolute Lymphs (auto) Absolute Monos (auto) Absolute Eos (auto) Absolute Basos (auto) Absolute Nucleated RBC Nucleated RBC % INR (Anticoag Therapy) APTT Sodium Potassium Chloride Carbon Dioxide Anion Gap BUN Creatinine Est GFR ( Amer) Est GFR (Non-Af Amer) BUN/Creatinine Ratio Glucose POC Glucose (mg/dL) 221 H 117 H 190 H Calcium 06/23/18 06/23/18 06/23/18 06:19 06:19 08:17 WBC 14.2 H RBC 3.28 L Hgb 9.5 L Hct 29 L MCV 88 MCH 29 MCHC 33 RDW 16 H Plt Count 224 MPV 8.4 Neut % (Auto) 95.2 Lymph % (Auto) 1.1 [place] % (Auto) 3.4 Eos % (Auto) 0 Baso % (Auto) 0.3 Absolute Neuts (auto) 13.5 H Absolute Lymphs (auto) 0.2 L Absolute Monos (auto) 0.5 Absolute Eos (auto) 0 Absolute Basos (auto) 0 Absolute Nucleated RBC 0 Nucleated RBC % 0 INR (Anticoag Therapy) 0.92 APTT 27.1 Sodium 139 Potassium 4.7 Chloride 107 Carbon Dioxide 28 Anion Gap 4 BUN 54 H Creatinine 1.49 H Est GFR ( Amer) 56.9 Est GFR (Non-Af Amer) 47.0 BUN/Creatinine Ratio 36.2 H Glucose 148 H POC Glucose (mg/dL) Calcium 9.2 06/23/18 08:26 WBC RBC Hgb Hct MCV MCH MCHC RDW Plt Count MPV Neut % (Auto) Lymph % (Auto) [place] % (Auto) Eos % (Auto) Baso % (Auto) Absolute Neuts (auto) Absolute Lymphs (auto) Absolute Monos (auto) Absolute Eos (auto) Absolute Basos (auto) Absolute Nucleated RBC Nucleated RBC % INR (Anticoag Therapy) APTT Sodium Potassium Chloride Carbon Dioxide Anion Gap BUN Creatinine Est GFR ( Amer) Est GFR (Non-Af Amer) BUN/Creatinine Ratio Glucose POC Glucose (mg/dL) 160 H Calcium Acetaminophen (Tylenol Tab*) 650 mg PO Q6H PRN PRN Reason: FEVER/PAIN Last Admin: 06/22/18 13:42 Dose: 650 mg Albuterol (Ventolin 2.5 Mg/3 Ml Neb.Luz Elena*) 2.5 mg INH Q2H PRN PRN Reason: SOB/WHEEZING Albuterol/Ipratropium (Duoneb (Albuterol 2.5 Mg/Ipratropium 0.5 Mg)) 1 neb INH [id number] AWAKE [facility] Last Admin: 06/23/18 07:24 Dose: 1 neb Amiodarone HCl (Cordarone Tab*) 200 mg PO DAILY [facility] Last Admin: 06/23/18 09:03 Dose: 200 mg Aspirin (Aspirin Ec Tab*) 81 mg PO QAM [facility] Last Admin: 06/23/18 09:03 Dose: 81 mg Atorvastatin Calcium (Lipitor*) 80 mg PO QPM [facility] Last Admin: 06/22/18 17:49 Dose: Not Given Benzonatate (Tessalon Cap*) 100 mg PO BID PRN PRN Reason: COUGH Last Admin: 06/19/18 19:12 Dose: 100 mg Carvedilol (Coreg Tab*) 3.125 mg PO BID [facility] Last Admin: 06/23/18 09:03 Dose: 3.125 mg Device (Nicotine Mouth Piece*) 1 each INH ONCE PRN PRN Reason: CRAVING Last Admin: 06/23/18 04:56 Dose: 1 each Dextrose (D50w Syringe 50 Ml*) 12.5 gm IV PUSH .FOR FS < 60 - SS PRN PRN Reason: FS < 60 Docusate Sodium (Colace Cap*) 100 mg PO BID PRN PRN Reason: CONSTIPATION Gabapentin (Neurontin Cap(*)) 900 mg PO BID [facility] Last Admin: 06/23/18 09:03 Dose: 900 mg Guaifenesin (Mucinex*) 1,200 mg PO BID [facility] Last Admin: 06/23/18 09:04 Dose: 1,200 mg Piperacillin Sod/Tazobactam (Sod 3.375 gm/ Sodium Chloride) 100 mls @ 25 mls/ hr IVPB Q8H [facility] Last Admin: 06/23/18 08:32 Dose: 25 mls/hr Sodium Chloride (Ns 0.9% 1000 Ml*) 1,000 mls @ 0 mls/hr IV PER RATE [facility] Last Admin: 06/19/18 21:52 Dose: 10 mls/hr Morphine Sulfate (Morphine Delivery Assistant Adult* 5 Mg/Ml) 30 mls @ 0.6 mls/hr [employer] .change Q24H [facility]; Protocol Last Admin: 06/23/18 00:15 Dose: 0.6 mls/hr Insulin Human Lispro (Humalog*) 0 units SUBCUT ACHS [facility]; Protocol Last Admin: 06/23/18 08:27 Dose: Not Given Lidocaine HCl (Lidocaine 2% Jelly*) 1 applic TOPICAL Q4H PRN PRN Reason: PAIN Magnesium Oxide (Magox 400 Tab*) 400 mg PO QAM [facility] Last Admin: 06/23/18 09:03 Dose: 400 mg Methylprednisolone Sodium Succinate (Solu-Medrol 125mg *) 60 mg IV Q12H [facility] Last Admin: 06/23/18 09:02 Dose: 60 mg Mometasone Furoate/Formoterol Fumar (Dulera 200/5 Mdi*) 2 puff INH BID [facility] Last Admin: 06/23/18 07:23 Dose: 2 puff Morphine Sulfate (Morphine Vial*) 2 mg IV Q2H PRN PRN Reason: PAIN Last Admin: 06/22/18 20:01 Dose: 2 mg Morphine Sulfate (Morphine Inj ((Syringe))*) 2 mg IV Q1H PRN PRN Reason: PAIN BREAKTHROUGH Last Admin: 06/23/18 01:42 Dose: 2 mg Morphine Sulfate (Morphine Vial*) 4 mg IV Q2H PRN PRN Reason: PAIN BREAKTHROUGH UNCONTROLLED Nicotine (Nicotine Inhaler*) 10 mg INH Q2H PRN PRN Reason: CRAVING Last Admin: 06/20/18 16:54 Dose: 10 mg Nicotine (Nicotine Patch 21 Mg/24 Hr*) 1 patch TRANSDERM 0900 [facility] Last Admin: 06/23/18 09:04 Dose: 1 patch Nitroglycerin (Nitroglycerin Tab 0.4 Mg*) 0.4 mg SL Q5M PRN PRN Reason: PAIN - CHEST Ondansetron HCl (Zofran Inj*) 4 mg IV Q6H PRN PRN Reason: NAUSEA Pantoprazole Sodium (Protonix Tab (Nf)) 40 mg PO QAM [facility] Last Admin: 06/23/18 09:03 Dose: 40 mg Pharmacy Consult (Zosyn Per Pharmacy*) 1 note FOLLOW UP .ZOSYN PER PHARMACY [facility] Pharmacy Profile Note (Nicotine Patch Removal Note*) 1 note PATCH OFF 2100 [facility] Last Admin: 06/22/18 23:47 Dose: Not Given Polyethylene Glycol/Electrolytes (Miralax*) 17 gm PO DAILY PRN PRN Reason: CONSTIPATION Potassium Chloride (Klor Con Er Tab*) 20 meq PO DAILY [facility] Last Admin: 06/23/18 09:03 Dose: 20 meq Tamsulosin HCl (Flomax Cap*) 0.4 mg PO BEDTIME [facility] Last Admin: 06/23/18 00:06 Dose: 0.4 mg Tiotropium [place] (Spiriva Cap.Inh*) 1 cap INH DAILY [facility] Last Admin: 06/23/18 07:23 Dose: 1 cap Assessment: 68 yo M w recurrent metastatic small cell lung cancer admitted with COPD/PNA with course complicated by bleeding from invasive bladder cancer resulting in severe urinary retention and pain. This was discussed at length between Dr. Johnston, Dr. Ortiz, myself and the family. He is clearly very high risk for operative intervention including potential intraoperative demise. He and his family very clearly state their willingness to assume this risk for an attempt at palliation of his pain. Assuming this issue can be resolved, the plan would be to treat his current PNA/ COPD and if he improves in functional status resume palliative chemotherapy for his small cell lung cancer, with addressing of his small, asymptomatic brain met in the future. In terms of his positive blood culture and PNA, he is currently on zosyn and appears to be improving and so we will continue this with course to be determined by isolation of species and clinical course He did rescind his DNI for this procedure and is clear that he would want an attempt at reintubation should he fail extubation. plavix held given bleeding cont ASA
[2018-06-23] MEDS ORDERED: Etomidate* 2 MG/ML 10 ML VIAL ONE (13:13)
[2018-06-23] MEDS ORDERED: fentaNYL* 50 MCG/ML 2 ML VIAL (100 MCG VIAL) ONE ×2 (13:53→16:25)
[2018-06-23] MEDS ORDERED: Midazolam* 1 MG/ML 2 ML VIAL (2 MG) ONE (14:45)
[2018-06-23] MEDS: NS 0.9% 1000 ML* 1,000 ML IV SCH (15:30)
[2018-06-23 17:05] VITALS: BP 133/82
[2018-06-23] MEDS ORDERED: LORazepam INJ* 2 MG/ML 1 ML VIAL IV PUSH ONE (17:15)
[2018-06-23] MEDS ORDERED: Morphine VIAL* 10 MG/ML 1 ML VIAL IV ONE (17:15)
[2018-06-23] MEDS ORDERED: Morphine PCA 5 MG/ML * Titrate per Protocol PCA SCH (18:00)
[2018-06-23] MEDS ORDERED: LORazepam VIAL (for drip)* 100 MG in D5W 50 ML BAG* 50 ML IVPB SCH (18:00)
--- NOTE | 2018-06-23 20:34 | OP ---
DATE OF OPERATION: 06/23/18 - ROOM #ICU-07 DATE OF : 52 SURGEON: Dr. Hayden Ortiz. ANESTHESIOLOGIST: Dr. Monroe. ANESTHESIA: General. PRE-OP DIAGNOSES: 1. Bladder cancer. 2. Gross hematuria. 3. Clot retention. POST-OP DIAGNOSES: 1. Bladder cancer. 2. Gross hematuria. 3. Clot retention. 4. Likely bladder perforation. OPERATIVE PROCEDURE: 1. Cystoscopy. 2. Clot evacuation and fulguration. POSTOPERATIVE CONDITION: Critical. INDICATIONS: Dima Chen Jr is a 68-year-old gentleman with metastatic lung cancer as well as bladder cancer. For the last 24 plus hours, he has had significant gross hematuria with clot retention in spite of attempts at placing a 24-Chinese Freire and bladder irrigation. He has been considered extremely high surgical risk and I was initially reluctant to bring him to the operating room, but because of the continued discomfort he requested an attempt at operative intervention to see if I could remove bladder clots and control the bleeding. DESCRIPTION OF PROCEDURE: After induction of general anesthesia, patient was placed in dorsal lithotomy position. Sequential compression devices were in place and functioning. Initial evaluation revealed a normal-appearing urethra with a mildly enlarged prostate. The bladder was entered. Multiple large clots were noted at the bladder neck and in the floor of the bladder severely limiting visibility. There were some areas of active bleeding noted at the bladder neck, which were carefully fulgurated with the resectoscope. I attempted to remove the clots using the Ellik evacuator, but I noticed with bladder irrigation that he was having progressive abdominal distention. This made me think that he likely had a bladder perforation possibly related to the malignancy or related to the prolonged clot retention, and in any case, given the progressive abdominal distention with irrigation, I was reluctant to continue the procedure as I did not think it would be feasible to evacuate all the clots and control the bleeding. A decision was made at this point to go ahead and stop the procedure and a Freire catheter was placed for temporary bladder drainage. The patient was transferred to the intensive care unit and the plan is to discuss with the family probably regarding palliative management at this point. [id number]/CPS #: [id number] MTDD
--- NOTE | 2018-06-23 20:44 | DS ---
SUMMARY: DATE OF ADMISSION: 06/18/18 DATE OF : 06/23/18 HISTORY AND HOSPITAL COURSE: This patient is a 68-year-old white male with a history of small-cell carcinoma of the lung (metastatic) and bladder CA, who was admitted with increasing shortness of breath and a presumed community- acquired pneumonia, and was in the ICUt because of difficulty oxygenating. Patient initially improved and was transferred out of the ICU on 06/22/18. Shortly thereafter, patient developed gross hematuria and intense pain in the lower abdomen. He was brought to the operating room and on laparoscopic assessment was found to have a tumor mass eroding through the wall of the bladder. It was felt that nothing further could be done, and patient was brought to the intensive care unit; after discussion with the family, which included the urologist the oncologist (Dr. Johnston), the family decided to institute comfort measures. Patient was subsequently placed on a morphine and Ativan drip and was removed from the ventilator and all other medications were discontinued. Shortly after, the patient was pronounced (at 6:05 p.m. on 06/23/18.) Family was present at the bedside and an autopsy was denied. FINAL DIAGNOSES: 1. Metastatic small-cell carcinoma of the lung. 2. Pneumonia with hypoxemic respiratory failure 3. Bladder CA 4. Perforation of urinary bladder from tumor mass. CRITICAL CARE TIME: 50 minutes. [id number]/CPS #: [id number] MTDD
== END 2018-06-23 18:05 | disposition expired | DRG 208 ==
LOC: ED 15:40 → MEDTELE 20:43 → ICU 06-19 09:26 → OBSVTOIN 06-19 15:28 → MED 06-22 16:21 → ICU 06-23 15:10
PROVIDERS: ADMIT Internal Medicine; ATTEND Internal Medicine Critical Care Medicine
PROC: 5A09357 Assistance with Respiratory Ventilation, Less than 24 Consecutive Hours, Continuous Positive Airway Pressure (ICD-10-PCS; 2018-06-19)
PROC: 5A1935Z Respiratory Ventilation, Less than 24 Consecutive Hours (ICD-10-PCS; 2018-06-23)
PROC: 0TCC8ZZ Extirpation of Matter from Bladder Neck, Via Natural or Artificial Opening Endoscopic (ICD-10-PCS; 2018-06-23)
PROC: 0BH17EZ Insertion of Endotracheal Airway into Trachea, Via Natural or Artificial Opening (ICD-10-PCS; 2018-06-23)
PROC: 0TCB8ZZ Extirpation of Matter from Bladder, Via Natural or Artificial Opening Endoscopic (ICD-10-PCS; principal; 2018-06-23 14:15)
DX: J18.9 Pneumonia, unspecified organism (principal); G93.6 Cerebral edema; J96.91 Respiratory failure, unspecified with hypoxia; J96.92 Respiratory failure, unspecified with hypercapnia; J44.0 Chronic obstructive pulmonary disease with (acute) lower respiratory infection; J44.1 Chronic obstructive pulmonary disease with (acute) exacerbation; I13.0 Hypertensive heart and chronic kidney disease with heart failure and stage 1 through stage 4 chronic kidney disease, or unspecified chronic kidney disease; C34.90 Malignant neoplasm of unspecified part of unspecified bronchus or lung; C79.31 Secondary malignant neoplasm of brain; C79.11 Secondary malignant neoplasm of bladder; E87.1 Hypo-osmolality and hyponatremia; E87.2 Acidosis; N17.9 Acute kidney failure, unspecified; I47.2 Ventricular tachycardia; I50.9 Heart failure, unspecified; I25.10 Atherosclerotic heart disease of native coronary artery without angina pectoris; E11.51 Type 2 diabetes mellitus with diabetic peripheral angiopathy without gangrene; E78.00 Pure hypercholesterolemia, unspecified; K21.9 Gastro-esophageal reflux disease without esophagitis; K57.90 Diverticulosis of intestine, part unspecified, without perforation or abscess without bleeding; N40.0 Benign prostatic hyperplasia without lower urinary tract symptoms; M19.90 Unspecified osteoarthritis, unspecified site; M41.9 Scoliosis, unspecified; Z96.641 Presence of right artificial hip joint; F41.9 Anxiety disorder, unspecified; E78.5 Hyperlipidemia, unspecified; I45.10 Unspecified right bundle-branch block; R31.0 Gross hematuria; N18.9 Chronic kidney disease, unspecified; E11.22 Type 2 diabetes mellitus with diabetic chronic kidney disease; M54.30 Sciatica, unspecified side; E87.5 Hyperkalemia; F17.210 Nicotine dependence, cigarettes, uncomplicated; Z72.89 Other problems related to lifestyle; Z82.49 Family history of ischemic heart disease and other diseases of the circulatory system; Z87.442 Personal history of urinary calculi; Z86.711 Personal history of pulmonary embolism; Z88.8 Allergy status to other drugs, medicaments and biological substances; Z95.5 Presence of coronary angioplasty implant and graft; Z86.73 Personal history of transient ischemic attack (TIA), and cerebral infarction without residual deficits; I25.2 Old myocardial infarction
CPT/HCPCS: 36415; 36600; 71045; 71250; 80048; 80053; 82140; 82803; 83605; 83735; 83880; 84443; 84484; 85025; 85027; 85610; 85730; 87040; 87070; 87077; 87205; 87641; 87899; 93005; 94002; 94640; 94660; 99233; 99285; A9270-GY; J0456; J0696; J1100; J1644; J1940; J2060; J2250; J2270; J2543; J2930; J3010